=== PATIENT | male | born 1940 | race Caucasian/White ===

== ENCOUNTER → 2016-11-22 | Outpatient (CLI) | payer BC ==
[~2016-11-22] MED LIST: ALPR-411 PO; CMDUNK; FINA5TAB PO; PRLSR20 PO; PRVC10 PO; TERA5CAP PO
[2016-11-22 14:55] LABS: BASO % 0.5 %; BASO ABS # 0.05 K/uL (0-0.2); COMPLETE YES; EOS % 2.3 %; HEMATOCRIT 35.5 % (42-52); IG% 0.2 %; LYMPH % 15.5 %; LYMPH ABS # 1.42 K/uL (1.2-3.4); MEAN CELL VOLUME 91.7 fL (80-100); MEAN CORPUSCULAR HEMOGLOBIN 31.3 pg (25-34); MEAN CORPUSCULAR HGB CONC 34.1 g/dl (32-36); MEAN PLATELET VOLUME 10.5 fL (7.4-10.4); MONO % 8.4 %; NEUT % 73.1 %; PLATELET COUNT 238 K/uL (130-400); RED BLOOD COUNT 3.87 M/uL (4.7-6.1); WHITE BLOOD COUNT 9.19 K/uL (4.8-10.8)
== END | disposition home or self-care (01) ==
LOC: C.LAB 13:31
DX: D64.9 Anemia, unspecified (principal)

== ENCOUNTER → 2016-12-29 | Outpatient (CLI) | payer BC ==
[2016-12-29 09:39] LABS: BASO % 0.8 %; BASO ABS # 0.06 K/uL (0-0.2); COMPLETE YES; EOS % 5.5 %; HEMATOCRIT 33.6 % (42-52); IG% 0.3 %; LYMPH % 18.3 %; LYMPH ABS # 1.46 K/uL (1.2-3.4); MEAN CELL VOLUME 90.6 fL (80-100); MEAN CORPUSCULAR HEMOGLOBIN 31.3 pg (25-34); MEAN CORPUSCULAR HGB CONC 34.5 g/dl (32-36); MONO % 5.4 %; NEUT % 69.7 %; PLATELET COUNT 255 K/uL (130-400); RED BLOOD COUNT 3.71 M/uL (4.7-6.1)
[2016-12-29 10:20] LABS: FERRITIN 172.9 ng/ml (8.0-388.0)
== END | disposition home or self-care (01) ==
LOC: C.LAB 09:05
DX: D64.9 Anemia, unspecified (principal)

== ENCOUNTER → 2017-01-25 | Outpatient (CLI) | payer BC ==
[2017-01-25 15:54] LABS: BASO % 0.5 %; BASO ABS # 0.05 K/uL (0-0.2); COMPLETE YES; EOS % 2.4 %; HEMATOCRIT 34.8 % (42-52); IG% 0.3 %; LYMPH % 14.7 %; LYMPH ABS # 1.51 K/uL (1.2-3.4); MEAN CELL VOLUME 90.6 fL (80-100); MEAN CORPUSCULAR HEMOGLOBIN 31.5 pg (25-34); MEAN CORPUSCULAR HGB CONC 34.8 g/dl (32-36); MEAN PLATELET VOLUME 10.4 fL (7.4-10.4); MONO % 6.9 %; NEUT % 75.2 %; PLATELET COUNT 249 K/uL (130-400); RED BLOOD COUNT 3.84 M/uL (4.7-6.1)
[2017-01-25 16:05] LABS: FERRITIN 287.3 ng/ml (8.0-388.0)
== END | disposition home or self-care (01) ==
LOC: C.LAB 14:29
DX: D64.9 Anemia, unspecified (principal)

== ENCOUNTER → 2017-02-26 | Outpatient (CLI) | payer BC ==
[2017-02-26 09:31] LABS: BASO % 0.5 %; BASO ABS # 0.05 K/uL (0-0.2); COMPLETE YES; EOS % 3.8 %; HEMATOCRIT 34.4 % (42-52); IG% 0.2 %; LYMPH % 13.9 %; MEAN CELL VOLUME 92.7 fL (80-100); MEAN CORPUSCULAR HEMOGLOBIN 31.8 pg (25-34); MEAN CORPUSCULAR HGB CONC 34.3 g/dl (32-36); MEAN PLATELET VOLUME 10.4 fL (7.4-10.4); MONO % 5.6 %; PLATELET COUNT 249 K/uL (130-400); RED BLOOD COUNT 3.71 M/uL (4.7-6.1); WHITE BLOOD COUNT 10.07 K/uL (4.8-10.8)
[2017-02-26 09:50] LABS: FERRITIN 325.6 ng/ml (8.0-388.0)
== END ==
LOC: C.LAB 08:24
DX: D50.9 Iron deficiency anemia, unspecified (principal)

== ENCOUNTER 2017-04-23 19:06 | Emergency (ER) | payer BC ==
[~2017-04-23] VITALS: Ht 177.8 cm; Wt 80.9 kg
[~2017-04-23 19:06] MED LIST changes: -PRVC10 PO
[2017-04-23 19:10] VITALS: Ht 177.8 cm; Wt 80.9 kg
--- NOTE | 2017-04-23 19:43 | DIAGNOSTIC IMAGING REPORT ---
RIGHT ANKLE MIN 3 VIEWS ROUTINE CLINICAL HISTORY: Right ankle and foot pain. COMPARISON: None FINDINGS: Alignment of the right ankle is anatomic. There is no acute fracture. A 6 mm well-corticated ossicle along the medial malleolus suggests old injury. Talar dome is intact. There is mild arthritis. IMPRESSION: No acute fracture or dislocation of the right ankle. Electronically signed by: Zia Elkins M.D. 04/23/2017 7:42 PM Dictated Date/Time: 04/23/2017 7:40 PM
[2017-04-23] MEDS ORDERED: ALPR-411 PO (19:44)
[2017-04-23] MEDS ORDERED: PRVC10 PO (19:44)
--- NOTE | 2017-04-23 19:45 | DIAGNOSTIC IMAGING REPORT ---
RIGHT FOOT MIN 3 VIEWS ROUTINE CLINICAL HISTORY: Lateral right ankle and foot pain following injury. COMPARISON: None FINDINGS: The tarsometatarsal joints are intact. There is no acute fracture within the right foot. There is moderate arthritis within multiple articulations of the right foot, most pronounced within the midfoot. There is mild plantar calcaneal spurring. IMPRESSION: No acute fracture or dislocation of the right foot. 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 Electronically signed by: Zia Elkins M.D. 04/23/2017 7:43 PM Dictated Date/Time: 04/23/2017 7:42 PM
[2017-04-23] MEDS ORDERED: NORCO 5/325MG HOME PACK PO ONE (20:15)
[2017-04-23 20:26] VITALS: BP 135/69; PULSE 78; TEMP 36.7; O2SAT 95
--- NOTE | 2017-04-24 00:04 | EMERGENCY ROOM VISIT NOTE ---
History First contact with patient: 19:14 Chief Complaint: FOOT PAIN Stated Complaint: RIGHT FOOT DISCOMFORT History of Present Illness The patient is a 77 year old male who presents to the Emergency Room with complaints of right foot and ankle tenderness for the past one day. The patient states his symptoms began earlier when he was stepping out of his truck , and felt a pop sensation in the foot. He has had some slowly worsening pain in the foot and ankle. He does not recall previous injury or fracture. He has been able to ambulate, but this does cause him some discomfort. He has not taken anything [id number] for his pain which he rates a 5/10. The patient does not have other complaints. Review of Systems More than 10 systems were reviewed and otherwise negative with the exception of history of present illness. Past Medical/Surgical History No pertinent chronic medical disease Family History No pertinent family history Social History Smoking Status: Never Smoker Housing Status: lives with family Current/Historical Medications Scheduled Alprazolam (Xanax), 0.5 MG PO QAM Alprazolam (Xanax), 1 MG PO HS Finasteride (Proscar), 5 MG PO HS Omeprazole (Prilosec), 20 MG PO QAM Pravastatin Sod (Pravastatin Sodium), 10 MG PO HS Terazosin (Hytrin), 5 MG PO HS Allergies Coded Allergies: Sulfa Antibiotics (Verified Allergy, Severe, RASH, HIVES, SWOLLEN MOUTH, THROAT SWELLING, 11/15/16) Penicillins (Verified Allergy, Unknown, RASH, HIVES, 11/15/16) Physical Exam Vital Signs Date Time Temp Pulse Resp B/P (MAP) Pulse Ox O2 Delivery O2 Flow Rate FiO2 04/23/17 20:26 36.7 78 18 135/69 95 04/23/17 19:10 36.7 78 18 135/69 95 Room Air Pain Rating (0-10): 0 Physical Exam VITALS: Vitals are noted on the nurse's note and reviewed by myself. Vital signs stable. GENERAL: Well-developed, well-nourished, white male, who is in no acute distress and resting comfortably. Patient is cooperative with the examination. HEAD: Normocephalic atraumatic. HEART: Regular rate and rhythm without murmurs gallops or rubs. LUNGS: Clear to auscultation bilaterally without wheezes, rales or rhonchi. No retractions or accessory muscle use. MUSCULOSKELETAL: Mild tenderness appreciated over the lateral aspect of the right ankle and right foot. There is no gross deformity, laceration, or abrasion. Neurovascular status is intact distally. No medial or plantar aspect tenderness. NEURO: Patient was alert and oriented to person place and time. CN II through XII grossly intact. Medical Decision & Procedures ER Provider Diagnostic Interpretation: RIGHT ANKLE MIN 3 VIEWS ROUTINE CLINICAL HISTORY: Right ankle and foot pain. COMPARISON: None FINDINGS: Alignment of the right ankle is anatomic. There is no acute fracture. A 6 mm well-corticated ossicle along the medial malleolus suggests old injury. Talar dome is intact. There is mild arthritis. IMPRESSION: No acute fracture or dislocation of the right ankle RIGHT FOOT MIN 3 VIEWS ROUTINE CLINICAL HISTORY: Lateral right ankle and foot pain following injury. COMPARISON: None FINDINGS: The tarsometatarsal joints are intact. There is no acute fracture within the right foot. There is moderate arthritis within multiple articulations of the right foot, most pronounced within the midfoot. There is mild plantar calcaneal spurring. IMPRESSION: No acute fracture or dislocation of the right foot. 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 Medications Administered Medications (Trade) Dose Ordered Sig/Miguel Route Start Time Stop Time Status Last Admin Dose Admin Acetaminophen/ Hydrocodone Bitart ([place] 5/325mg Home Pack) 1 homepack UD ONCE PO 04/23/17 20:15 04/23/17 20:16 DC 04/23/17 20:29 1 HOMEPACK ED Course Physical exam and history were performed. Nursing notes and EMR were reviewed. Patient appears to have right foot and ankle pain after stepping out of his truck earlier today. X-rays were obtained and do not show evidence of acute fracture or dislocation. The patient was offered crutches or a walker, but he states that he has these at home, and is comfortable using them. He was given a postop shoe and a home pack of Vicodin. He will need to follow with orthopedics if any ongoing or persisting symptoms. He was otherwise invited back to the ER anytime and was pleased with plan of care. The chart was completed utilizing [employer] Voice Recognition Software. Grammatical errors, random word insertions, pronoun errors, and incomplete sentences are an occasional consequence of this system due to software limitations, ambient noise, and hardware issues. Any formal questions or concerns about the content, text, or information contained within the body of this dictation should be directly addressed to the provider for clarification. . Medical Decision Differential diagnosis includes, but is not limited to: Sprain, strain, fracture , dislocation, subluxation, contusion, and others Impression Primary Impression: Pain in joint involving right ankle and foot Departure Information Dispostion Home / Self-Care Condition GOOD Forms HOME CARE DOCUMENTATION FORM, IMPORTANT VISIT INFORMATION Patient Instructions [facility] Additional Instructions You were seen and evaluated today on an emergency basis only. This is not a substitute for, or an effort to provide, complete comprehensive medical care. It is not possible to recognize and treat all injuries or illnesses in a single emergency department visit. For this reason it is recommended that you followup with your primary care physician or orthopedist next week if symptoms persist. Wear your postop shoe and use your walker from home to prevent falling [place] (hydrocodone/acetaminophen) 5/325 mg (homepack) every 6 hours as needed for worsening breakthrough pain. Do not drink or drive on [place]. This medication will likely make you tired. Do not take [place] and Tylenol at the same time as both contain acetaminophen. [place] may cause constipation. You may wish to take an [id number] stool softener like Colace if this occurs. You are welcome to return to the emergency department anytime with new, worsening, or concerning symptoms.
== END 2017-04-23 20:28 | disposition home or self-care (01) ==
LOC: C.EDB 19:07 → C.EDD 20:28
DX: M25.571 Pain in right ankle and joints of right foot (principal)

== ENCOUNTER → 2017-06-07 | Outpatient (CLI) | payer BC ==
[~2017-06-07] MED LIST changes: -CMDUNK; +PRVC10 PO
[2017-06-07 16:13] LABS: BASO % 0.3 %; BASO ABS # 0.04 K/uL (0-0.2); COMPLETE YES; IG% 0.3 %; LYMPH % 7.8 %; LYMPH ABS # 1.22 K/uL (1.2-3.4); MEAN CELL VOLUME 91.1 fL (80-100); MEAN CORPUSCULAR HEMOGLOBIN 30.9 pg (25-34); MEAN CORPUSCULAR HGB CONC 33.9 g/dl (32-36); MEAN PLATELET VOLUME 9.8 fL (7.4-10.4); MONO % 5.9 %; NEUT % 84.7 %; PLATELET COUNT 301 K/uL (130-400); RED BLOOD COUNT 3.95 M/uL (4.7-6.1)
[2017-06-07 16:48] LABS: ALT/SGPT 21 U/L (12-78); AMYLASE 54 U/L (25-115); AST/SGOT 14 U/L (15-37); BLOOD UREA NITROGEN 19 mg/dl (7-18); BUN/CREATININE RATIO 18.9 (10-20); CALCIUM 9.2 mg/dl (8.5-10.1); CARBON DIOXIDE 27 mmol/L (21-32); CHLORIDE 109 mmol/L (98-107); GLUCOSE 95 mg/dl (70-99); SODIUM 142 mmol/L (136-145)
[2017-06-07 16:51] LABS: ALB/GLOB RATIO 1.1 (0.9-2); ALKALINE PHOSPHATASE 94 U/L (45-117)
[2017-06-07 16:52] LABS: URINE APPEARANCE CLEAR (CLEAR); URINE BILIRUBIN NEG (NEG); URINE COLOR YELLOW; URINE NITRITE NEG (NEG); URINE SPECIFIC GRAVITY 1.016 (1.000-1.030); UROBILINOGEN NEG (NEG)
[2017-06-07 17:03] LABS: MANUAL MICROSCOPIC REQUIRED? NO; REVIEW REQ? NO
--- NOTE | 2017-06-07 17:39 | DIAGNOSTIC IMAGING REPORT ---
KUB CLINICAL HISTORY: Generalized abdominal pain. Constipation. FINDINGS: 2 AP supine abdominal radiographs are correlated with abdominal CT dated 05/29/2006. There is a nonobstructed abdominal bowel gas pattern. Mild colonic fecal retention is noted. No evidence of intraperitoneal free air is seen on these supine images. Coarse calcifications are noted in the prostate gland. There is no radiographic evidence of nephrolithiasis. The skeletal structures are osteopenic. Advanced lumbosacral spondylosis is observed. The bony structures appear intact. IMPRESSION: Nonobstructed abdominal bowel gas pattern noting mild colonic fecal retention. Electronically signed by: Niraj Almeida M.D. 06/07/2017 5:37 PM Dictated Date/Time: 06/07/2017 5:36 PM
--- NOTE | 2017-06-11 14:08 | CODING QUERY MEDICAL NECESSITY ---
SUPPORTING DIAGNOSIS NEEDED Dr. Junior, A supporting diagnosis is required for the test/procedure performed on this patient in order for us to be reimbursed by the patient's insurance. Please provide a supporting diagnosis for the following test/procedure listed below next to the test name along with your signature. *If there is no additional diagnosis for this patient that would support the following test/procedure please document that below next to the test/procedure. Test(s)/Procedure(s) that require a supporting diagnosis: * ([id number]) B12 VITAMIN LEVEL DIAGNOSIS: DATE OF SERVICE: 06/07/17 Provider Signature: Date: Thank you Adonay Bob [facility] Information Management Once completed, please kindly fax back to [phone] For questions please call [phone]
== END ==
LOC: C.RAD 15:43
DX: R10.9 Unspecified abdominal pain (principal); K59.00 Constipation, unspecified

== ENCOUNTER → 2017-06-08 | Outpatient (CLI) | payer BC ==
[~2017-06-08] MED LIST changes: +OPTIRAY 320 IV PRN
--- NOTE | 2017-06-08 15:24 | DIAGNOSTIC IMAGING REPORT ---
ABD/PELVIS IV AND ORAL CONT HISTORY: 77 years-old Male acute diffuse abdominal pain with concern for acute diverticulitis. COMPARISON: CT 05/29/2006 TECHNIQUE: Multiple axial CT images of the abdomen and pelvis were obtained following the intravenous administration of 95 mL Optiray 320. Oral contrast was also administered. A dose lowering technique was used consistent with the principals of THANH. FINDINGS: Subsegmental tree-in-bud nodular groundglass opacities are present in the lateral segment right middle lobe suggesting infectious bronchiolitis with similar-appearing finding seen involving the medial basal segment of the right lower lobe. There is no pneumoperitoneum. Heart is enlarged with calcification seen within the region of the mitral annulus. The gallbladder, liver, spleen, imaging glands appear normal. There is moderate pancreatic atrophy. Subcentimeter low attenuating lesions of the right kidney suggest cysts, too small to characterize. No hydronephrosis. The prostate is enlarged causing mass effect upon the floor the urinary bladder. Central coarse prostatic calcifications are noted. There is moderate urinary bladder wall thickening suggesting sequela of chronic bladder outlet obstruction with small left lateral diverticulum, 1.3 cm. There is trace free pelvic fluid noted. Moderate atherosclerotic plaquing involves the abdominal aorta and branch vessels. Plaquing at the origin of the celiac trunk and SMA causes at least mild stenosis. There is a small diverticulum of the second portion duodenum. There is no bowel obstruction. Extensive sigmoid colonic diverticulosis is noted without significant inflammatory changes seen to suggest acute diverticulitis. There is no abscess. The appendix is normal. Soft tissues are within normal limits. Multilevel severe degenerative changes involve the lumbar spine. IMPRESSION: 1. Extensive sigmoid colonic diverticulosis without significant inflammatory changes seen to suggest acute diverticulitis at this time. There is however a mild amount of free pelvic fluid present which is nonspecific. Close follow-up is recommended. 2. No bowel obstruction. 3. Prostamegaly with wall thickening of the urinary bladder suggesting sequela of chronic bladder obstruction. Small bladder diverticulum involves the left posterior lateral bladder wall 4. Normal appendix. The above report was generated using voice recognition software. It may contain grammatical, syntax or spelling errors. Electronically signed by: Niraj Rico M.D. 06/08/2017 3:22 PM Dictated Date/Time: 06/08/2017 3:12 PM
== END | disposition home or self-care (01) ==
LOC: C.CTS 12:31
DX: K57.30 Diverticulosis of large intestine without perforation or abscess without bleeding (principal); N32.3 Diverticulum of bladder; N40.1 Benign prostatic hyperplasia with lower urinary tract symptoms; R10.9 Unspecified abdominal pain

== ENCOUNTER → 2017-06-21 | Outpatient (CLI) | payer BC ==
[~2017-06-21] MED LIST changes: -OPTIRAY 320 IV PRN
[2017-06-21 13:36] LABS: BASO % 0.7 %; BASO ABS # 0.06 K/uL (0-0.2); COMPLETE YES; EOS % 2.7 %; HEMATOCRIT 34.4 % (42-52); IG% 0.2 %; LYMPH % 18.5 %; LYMPH ABS # 1.58 K/uL (1.2-3.4); MEAN CORPUSCULAR HEMOGLOBIN 30.5 pg (25-34); MEAN CORPUSCULAR HGB CONC 33.1 g/dl (32-36); MEAN PLATELET VOLUME 10.7 fL (7.4-10.4); MONO % 5.9 %; PLATELET COUNT 284 K/uL (130-400); RED BLOOD COUNT 3.74 M/uL (4.7-6.1); WHITE BLOOD COUNT 8.53 K/uL (4.8-10.8)
[2017-06-21 13:51] LABS: PROSTATE SPECIFIC ANTIGEN 0.793 ng/ml (0.000-4.000)
== END | disposition home or self-care (01) ==
LOC: C.LAB1850 11:46
DX: D64.9 Anemia, unspecified (principal); N40.2 Nodular prostate without lower urinary tract symptoms; E61.1 Iron deficiency

== ENCOUNTER → 2018-01-10 | Outpatient (CLI) | payer BC ==
--- NOTE | 2018-01-10 13:29 | DIAGNOSTIC IMAGING REPORT ---
KUB CLINICAL HISTORY: ABDOMINAL PAIN, CONSTIPATION pain COMPARISON STUDY: 06/07/2017 FINDINGS: The soft tissues, psoas shadows, renal outlines and intestinal gas pattern appear normal. There is no evidence for bowel obstruction. No abnormal abdominal calcifications are seen. IMPRESSION: Normal study. The above report was generated using voice recognition software. It may contain grammatical, syntax or spelling errors. Electronically signed by: Sheldon Bright M.D. 01/10/2018 1:27 PM Dictated Date/Time: 01/10/2018 1:26 PM
== END | disposition home or self-care (01) ==
LOC: C.RAD 13:06
DX: K59.00 Constipation, unspecified (principal)

== ENCOUNTER → 2018-06-17 | Outpatient (CLI) | payer BC | LOC: C.LABSPEC 11:28 | PROVIDERS: ATTEND Podiatrist Foot & Ankle Surgery | DX: Z48.89 Encounter for other specified surgical aftercare (principal) ==

== ENCOUNTER → 2018-07-02 | Outpatient (CLI) | payer BC | END | disposition home or self-care (01) | LOC: C.LAB 11:55 | PROVIDERS: ATTEND Podiatrist | DX: M10.071 Idiopathic gout, right ankle and foot (principal); M10.072 Idiopathic gout, left ankle and foot ==

== ENCOUNTER 2019-07-30 10:26 | Inpatient (IN) ==
[2019-07-30] MEDS ORDERED: GI COCKTAIL ED USE PO ONE (11:06)
[2019-07-30 11:19] LABS: Basophils # (auto) 0.06 K/uL (0-0.2); Basophils % (auto) 0.6 %; Eosinophils # (auto) 0.19 K/uL (0-0.5); Eosinophils % (auto) 1.8 %; Hematocrit (blood only) 32.9 % (42-52); Hemoglobin 10.8 g/dL (14.0-18.0); Immature Granulocytes # (auto) 0.04 K/uL (0.00-0.02); Immature Granulocytes % (auto) 0.4 %; Lymphocytes # (auto) 2.83 K/uL (1.2-3.4); Mean Corpuscular Hemoglobin 30.4 pg (25-34); Mean Corpuscular Hgb Conc 32.8 g/dL (32-36); Mean Corpuscular Volume 92.7 fL (80-100); Mean Platelet Volume 10.9 fL (7.4-10.4); Monocytes # (auto) 1.04 K/uL (0.11-0.59); Monocytes % (auto) 9.9 %; Neutrophils # (auto) 6.34 K/uL (1.4-6.5); Neutrophils % (auto) 60.3 %; Platelet Count 315 K/uL (130-400); RDW Coefficient of Variation 15.4 % (11.5-14.5); RDW Standard Deviation 52.5 fL (36.4-46.3); Red Blood Count 3.55 M/uL (4.7-6.1)
--- NOTE | 2019-07-30 11:22 | XRay Report ---
XR chest 1V portable CLINICAL HISTORY: Atypical chest pain COMPARISON STUDY: No previous studies for comparison. FINDINGS: The heart is borderline enlarged. There is no overt failure. There is no focal pulmonary co nsolidation. There is minor blunting of the lateral costophrenic angles.[ IMPRESSION: Minor blunting of the lateral costophrenic angles. Trace effusions cannot be excluded. No evidence of focal pulmonary consolidation Electronically signed by: Isrrael Perez M.D. 07/30/2019 11:21 AM
[2019-07-30 11:29] LABS: Alanine Aminotransferase 19 U/L (12-78); Albumin Level 3.4 gm/dl (3.4-5.0); Aspartate Aminotransferase 9 U/L (15-37); BUN Creatinine Ratio 18.7 (10-20); Blood Urea Nitrogen 21 mg/dl (7-18); Calcium 9.1 mg/dl (8.5-10.1); Carbon Dioxide 26 mmol/L (21-32); Chloride 108 mmol/L (98-107); Creatinine Clr Calc Pharmacy 54.9 ml/min; Est GFR (African American) 69.5; Glucose 161 mg/dl (70-99); Lipase 64 U/L (73-393); Potassium 3.6 mmol/L (3.5-5.1); Sodium 142 mmol/L (136-145)
[2019-07-30 11:34] LABS: Alkaline Phosphatase 78 U/L (45-117); Bilirubin,Total 0.5 mg/dl (0.2-1); Globulin 3.4 gm/dl (2.5-4.0); Total Protein 6.8 gm/dl (6.4-8.2); Troponin I < 0.015 ng/ml (0-0.045)
--- NOTE | 2019-07-30 12:53 | Emergency Department Note ---
Entered by Coty Garrett acting as a scribe for Bruce Stacy DO History of Present Illness General Chief complaint: Chest Pain Time Seen by Provider: 07/30/19 10:52 Source: patient History of Present Illness Onset (ago): day(s) (last night) Location: chest Pain Consistency: + other (worsening ) Quality: + other (chest tightness ) Exacerbated By: + other (swallowing food ) Associated symptoms: + shortness of breath (slight) and + other (+pain in jaw and neck; -arm pain; ); no diaphoresis and no nausea/vomiting The patient is an 79 year old male who presents to the Emergency Room with complaints of worsening chest tightness that began last night. The patient reports he first noticed symptoms while eating dinner last night. The patient notes the tightness he felt was worsened with swallowing. The patient notes he was restless throughout the night, but the patient notes he woke up feeling good. However, the patient states the chest tightness resumed when he started eating breakfast. Following this, the patient notes the chest tightness became more severe around 730-800 this morning. The patient also notes he could feel pain in his jaw and neck at this time, but he notes nothing to his arms. The patient states he took 4 baby aspirins before getting on the ambulance. He also notes he received 1 NG en route via EMS, which the patient reports helped a little. The patient notes slight shortness of breath, but he denies sweats, nausea, and vomiting. The patient denies the pain worsening with exertion. The patient also denies past heart issues. Home Medications Home Medications Medication Instructions Recorded Confirmed Type alprazolam 0.5 mg tablet 0.5 mg PO QAM 07/10/19 07/30/19 History alprazolam 1 mg tablet 1 mg PO HS tab 07/10/19 07/30/19 History finasteride 5 mg tablet 5 mg PO HS tab 07/10/19 07/30/19 History omeprazole 20 mg capsule,delayed 20 mg PO QAM 07/10/19 07/30/19 History release terazosin 5 mg capsule 5 mg PO HS cap 07/10/19 07/30/19 History allopurinol 100 mg PO QAM 07/30/19 07/30/19 History aspirin 81 mg PO HS 07/30/19 07/30/19 History diclofenac sodium 75 mg PO BID 07/30/19 07/30/19 History multivitamin 1 tab PO QAM 07/30/19 07/30/19 History ranitidine HCl 300 mg PO HS 07/30/19 07/30/19 History rosuvastatin 5 mg PO HS 07/30/19 07/30/19 History Allergies Allergy/AdvReac Type Severity Reaction Status Date / Time Sulfa (Sulfonamide Allergy Severe RASH, Verified 07/30/19 11:22 Antibiotics) HIVES, SWOLLEN MOUTH, THROAT SWELLING Penicillins Allergy Unknown RASH, HIVES Verified 07/30/19 11:22 Past Med/Surg History Medical History Arthritis (Chronic) Benign enlargement of prostate (Chronic) GERD (gastroesophageal reflux disease) (Chronic) Gout (Chronic) Hyperlipidemia (Chronic) Surgical History H/O foot surgery (Resolved) History of bilateral knee replacement (Resolved) Social History Communication Ability: Effective Visual Impairment: No Limitations Hearing Ability: Normal Beliefs That Will Affect Care: None marital status: Current Living Situation: Spouse current occupational status: retired Feels Safe at Home: Yes Smoking Status: Never smoker Hx Alcohol Use: No Review of Systems See HPI for pertinent positives & negatives. and A total of 10 systems reviewed and were otherwise negative Physical Exam Vital Signs Vital Signs - 24 hr 07/30/19 10:34 07/30/19 11:58 07/30/19 13:00 Temperature 36.7 C Temperature Source Oral Sepsis Recent Fever Within 48 Hours No Sepsis Action Taken by Nursing No Action Required Pulse Rate 76 Pulse Rate [Apical] 60 70 Pulse Rhythm [Apical] Regular Regular Pulse Strength [Apical] Normal Respiratory Rate 16 17 18 Respiratory Effort / Characteristics Non-Labored Spontaneous Non-Labored Spontaneous Respiratory Depth Normal Normal Respiratory Pattern Regular Regular Blood Pressure 145/80 H Blood Pressure [Right Arm] 165/81 H 178/87 H Blood Pressure Mean 101 Blood Pressure Mean [Right Arm] 109 117 Pulse Oximetry 96 98 98 Oxygen Delivery Method Room Air Room Air CONSTITUTIONAL/VITAL SIGNS: Reviewed / noted above. GENERAL: Non-toxic in appearance. INTEGUMENTARY: Warm, dry, and [place]. HEAD: Normocephalic. EYES: without scleral icterus or trauma. ENT/OROPHARYNX: clear and moist. LYMPHADENOPATHY/NECK: Is supple without lymphadenopathy or meningismus. RESPIRATORY: Lungs clear and equal. CARDIOVASCULAR: Regular rate and rhythm. GI/ABDOMEN: Soft and nontender. No organomegaly or pulsatile mass. No rebound or guarding. Normal bowel sounds. EXTREMITIES: Warm and well perfused. BACK: No CVA tenderness. NEUROLOGICAL: Intact without focal deficits. PSYCHIATRIC: normal affect. MUSCULOSKELETAL: Normally developed with good muscle tone. Course 1101: Past medical records reviewed. The patient was evaluated in room A10. A complete history and physical exam was performed. 1244: I discussed the patient's case with the patient. 1327: I reviewed the patient's case with Dr. Alberto. Dr. Percy Mahan will evaluate the patient for further management. Consultations Consultation #1: I reviewed the patient's case with Dr. Alberto. Dr. Alberto will evaluate the patient for further management. Time: 13:27 Administered Medications Discontinued Medications Al Hydrox/Mg Hydrox/Simethicone () 1 dose PO ONE ONE Stop: 07/30/19 11:07 Last Admin: 07/30/19 11:11 Dose: 1 dose Documented by: [id number] Medical Decision Making Differential Diagnosis Differential diagnosis: Etiologies such as cardiac ischemia, aortic dissection, pulmonary embolism, pneumonia, pneumothorax, musculoskeletal, infections, pericarditis, myocarditis, esophageal rupture, gastrointestinal, as well as others were entertained. Medical Records Attestation: I reviewed the patient's medical records. Home Medications Current Medication List: was personally reviewed by me Laboratory Data Attestation: I reviewed the patient's lab results. Result diagrams: 07/30/19 10:12 07/30/19 10:12 Lab Results 07/30/19 07/30/19 Range/Units 10:12 10:12 WBC 10.50 (4.8-10.8) K/uL RBC 3.55 L (4.7-6.1) M/uL Hgb 10.8 L (14.0-18.0) g/dL Hct 32.9 L (42-52) % MCV 92.7 (80-100) fL MCH 30.4 (25-34) pg MCHC 32.8 (32-36) g/dL RDW Std Deviation 52.5 H (36.4-46.3) fL RDW Coeff of [place] 15.4 H (11.5-14.5) % Plt Count 315 (130-400) K/uL MPV 10.9 H (7.4-10.4) fL Immature Gran % (Auto) 0.4 % Neut % (Auto) 60.3 % Lymph % (Auto) 27.0 % [place] % (Auto) 9.9 % Eos % (Auto) 1.8 % Baso % (Auto) 0.6 % Immature Gran # (Auto) 0.04 H (0.00-0.02) K/uL Neut # (Auto) 6.34 (1.4-6.5) K/uL Lymph # (Auto) 2.83 (1.2-3.4) K/uL [place] # (Auto) 1.04 H (0.11-0.59) K/uL Eos # (Auto) 0.19 (0-0.5) K/uL Baso # (Auto) 0.06 (0-0.2) K/uL Sodium 142 (136-145) mmol/L Potassium 3.6 (3.5-5.1) mmol/L Chloride 108 H (98-107) mmol/L Carbon Dioxide 26 (21-32) mmol/L Anion Gap 8.0 (3-11) BUN 21 H (7-18) mg/dl Creatinine 1.14 (0.6-1.4) mg/dl Est Cr Clr Drug Dosing 54.9 ml/min Est GFR ( Amer) 69.5 Est GFR (Non-Af Amer) 60.0 BUN/Creatinine Ratio 18.7 (10-20) Glucose 161 H (70-99) mg/dl Calcium 9.1 (8.5-10.1) mg/dl Total Bilirubin 0.5 (0.2-1) mg/dl AST 9 L (15-37) U/L ALT 19 (12-78) U/L Alkaline Phosphatase 78 (45-117) U/L Troponin I < 0.015 (0-0.045) ng/ml Total Protein 6.8 (6.4-8.2) gm/dl Albumin 3.4 (3.4-5.0) gm/dl Globulin 3.4 (2.5-4.0) gm/dl Albumin/Globulin Ratio 1.0 (0.9-2) Lipase 64 L (73-393) U/L Imaging Data Radiologist's Impression: Radiology results as stated below per my review and the radiologist's interpretation: XR chest 1V portable CLINICAL HISTORY: Atypical chest pain COMPARISON STUDY: No previous studies for comparison. FINDINGS: The heart is borderline enlarged. There is no overt failure. There is no focal pulmonary consolidation. There is minor blunting of the lateral costophrenic angles.[ IMPRESSION: Minor blunting of the lateral costophrenic angles. Trace effusions cannot be excluded. No evidence of focal pulmonary consolidation Electronically signed by: Isrrael Perez M.D. 07/30/2019 11:21 AM ECG Data Attestation: I personally reviewed and interpreted this ECG as follows: Indication: chest pain Rate (beats per minute): 74 Rhythm: sinus rhythm Findings: + PAC, + PVC, + RBBB and + T-wave inversion (in anterior and lateral leads) Comparison ECG Date: from (04/16/18) Change: the following changes noted (PVC and PAC are more prominent/frequent ) Blood Pressure Blood Pressure Findings: Elevated blood pressure Blood Pressure Disposition: further management by hospitalist ARGENIS Dupree This is an 79-year-old male who presents to the ED with a chief complaint of chest discomfort. The patient states that his symptoms started last night with eating dinner. He states that he had some minor chest pain that seem to be worse if he swallowed. He states that that resolved and this morning during breakfast he had the pain returned. It seemed to be a little worse with swallowing as well. He states that 8 AM he began to have tightness in his chest that radiated into his jaw and neck. He had a little associated shortness of breath. He now currently feels like it is a little short of breath but is mostly resolved after EMS gave him sublingual nitroglycerin. The patient took aspirin 324 mg p.o. prior to EMS arrival. He denies having any diaphoresis, nausea or vomiting associated with his symptoms. His vital signs are stable. His physical exam was unremarkable. A chest x-ray was negative for acute disease. CBC is unremarkable. Complete metabolic panel was normal, troponin was negative. Twelve-lead EKG reveals a sinus rhythm with multiple PVCs and PACs. I spoke with the patient about the results. Based on the patient's symptoms and risk factors, the patient will be seen by the hospitalist for further inpatient evaluation and care. Impression & Plan Chest pain, precordial Discharge Plan Visit Data Chief Complaint: Chest Pain ED Provider: Bruce Stacy Discharge Problem: Chest pain, precordial Patient Disposition: Being Evaluated by Hospitalist Forms Stand Alone Forms: My [facility] Prescriptions Prescriptions: No Action alprazolam [Xanax] 1 mg tablet 1 mg PO HS RF: 0 alprazolam [Xanax] 0.5 mg tablet 0.5 mg PO QAM RF: 0 finasteride [Proscar] 5 mg tablet 5 mg PO HS RF: 0 omeprazole 20 mg capsule,delayed release(DR/EC) 20 mg PO QAM RF: 0 terazosin 5 mg capsule 5 mg PO HS RF: 0 multivitamin Tablet 1 tab PO QAM RF: 0 ranitidine HCl 300 mg tablet 300 mg PO HS RF: 0 allopurinol 100 mg tablet 100 mg PO QAM RF: 0 aspirin 81 mg Tablet,Delayed Release (Dr/Ec) 81 mg PO HS RF: 0 diclofenac sodium 75 mg tablet,delayed release (DR/EC) 75 mg PO BID RF: 0 rosuvastatin 5 mg tablet 5 mg PO HS RF: 0 Referrals Referrals: Ryan Junior Jr, DO [Primary Care Provider] - The scribe's documentation has been prepared under my direction and personally reviewed by me in its entirety. I confirm that the note above accurately reflects all work, treatment, procedures, and medical decision making performed by me.
[2019-07-30] MEDS ORDERED: MAGNESIUM HYDROXIDE SUSP 30 ML UDC PO PRN (14:32)
[2019-07-30] MEDS ORDERED: ALUMINUM/MAGNESIUM SUSP 30 ML UDC PO PRN (14:32)
[2019-07-30] MEDS ORDERED: ZOLPIDEM TARTRATE 5 MG TAB PO PRN (14:32)
[2019-07-30] MEDS ORDERED: POLYETHYLENE (MIRALAX) 17 GM PACK PO PRN (14:32)
[2019-07-30] MEDS ORDERED: NITROGLYCERIN SL 0.4 MG/TAB TAB SL PRN (14:32)
[2019-07-30] MEDS ORDERED: MoRPHine SULFATE 2 MG/ML CARP IV PRN (14:32)
[2019-07-30] MEDS ORDERED: ACETAMINOPHEN 325 MG TAB PO PRN (14:32)
[2019-07-30] MEDS ORDERED: VANCOMYCIN CONSULT ACTIVE PRN (14:32)
--- NOTE | 2019-07-30 15:12 | Pharmacy Report ---
Pharmacy Abx Initial Consult - Date of Service July 30, 2019 - Pharmacy Dosing Scope Date of Consult: 07/30/19 Consultation requested by: Dr. Angela Mahan Pharmacy is consulted to initiate Vancomycin and Cefepime IV dosing therapy, order appropriate labs and adjust drug dose/frequency. - Subjective The patient is a 79 year old M admitted on 07/30/19 with chest pain. Patient just started PO Clindamycin on 07/24/19 for osteomyelitis of right lateral foot, non- healing surgical wound. Patient followed by Dr Chin at wound clinic. - Objective Height: 5 ft 9 in Weight: 85 kg Vital Signs (Past 12hrs): Vital Signs Temp Pulse Pulse Resp BP BP Pulse Ox 07/30/19 13:00 70 18 178/87 H 98 07/30/19 11:58 60 17 165/81 H 98 07/30/19 10:34 36.7 C 76 16 145/80 H 96 Lab Results (24hrs): Laboratory Tests (24 Hours) 07/30/19 07/30/19 10:12 10:12 WBC 10.50 Neut # (Auto) 6.34 Creatinine 1.14 Est Cr Clr Drug Dosing 54.9 - Risk Factors for Resistance * Antimicrobial use within the last 90 days - Clindamycin PO - Assessment & Plan Assessment 79 year old M admitted with chest pain and on PO Clindamycin for osteomyelitis of right lateral foot, starting IV Vancomycin and Cefepime for osteomyelitis, treating aggressively in case pt in need of cardiac stent. Plan Vancomycin and Cefepime for treatment of osteomyelitis Vancomycin IV * Estimated PK Parameters: Vd 0.7L/kg, Jim 0.05hr-1, t1/2 13.9hr * Loading dose: 2000 mg (23.5 mg/kg) x 1 dose now then * Maintenance dose: 1250 mg IV (14.7 mg/kg) every 14 hours * Goal trough level for osteomyelitis : 15 to 20 mcg/mL * Trough level ordered for 08/01/19 Cefepime - 2g IV q12h - reduced to 2g IV Q24H for CrCl 30-60ml/min Pharmacy will continue to follow and will adjust dose/frequency as necessary. Thank you.
--- NOTE | 2019-07-30 15:19 | History and Physical Report ---
DATE OF ADMISSION: 07/30/2019 HISTORY OF PRESENT ILLNESS: An 79-year-old man with past medical history of BPH, dyslipidemia, GERD and recent abscess in his left foot, presented to the hospital with substernal chest pain. Yesterday, patient experienced substernal chest pain that was getting much worse when he eats food immediately after he swallows either solid or liquid, chest pain resolved shortly after and he slept last night. He woke up this morning and had breakfast around 7:30 a.m. without having any chest tightness or pain, 1 hour later at 8:30 a.m., he started having substernal chest pain described as tightness and severe in nature, /10, the pain was referred to the base of his neck and his jaw, no associated symptoms. Denies any dizziness, diaphoresis, nausea or vomiting. Described the pain as tightness and scaled it 10/10. He called a friend of his with some cardiac problems, his friend advised him to take 4 baby aspirin so he did. Pain did not resolve. No associated, no aggravating, no relieving factors. He called 911 and he was given [address] subling[address] nitro and that [address] to the hospital that helped with the pain. By the time he arrived to the hospital, he was chest pain free. EKG showed some nonspecific ST-T wave changes and multiple PVCs and APCs. The patient also has an abscess in the lateral aspect of his left foot. He had an MRI of his foot done on 07/17/2019 that showed distal fifth metatarsal osteomyelitis and 1.6 cm abscess in this location. A wound culture was done at that time and grow only coagulase negative staph. The patient was placed on clindamycin and awaiting to have a removal of his left toe and left metatarsal bone of the toe. ASSESSMENT AND PLAN: 1. Unstable angina/chest pain. Admit patient to telemetry. Keep n.p.o. Start gentle IV fluid hydration. Sublingual nitro as needed for pain. Nitroglycerin patch. Consult per diem. Aspirin/empiric Lipitor. We will obtain lipid panel and hemoglobin A1c to stratify his risk factors. His current active infection complicates the picture, please refer to next point. 2. Osteomyelitis in left fifth metatarsal bone with underlying 1.6 cm abscess. Currently, on clindamycin 300 mg 3 times a day. Hold clindamycin. Obtain blood cultures and wound cultures. We will treat the infection aggressively in case he needs cardiac stent. Start him on vancomycin/cefepime. The patient reported PENICILLIN ALLERGY. When asked about that, he said he only developed some ulcers in his mouth when he took PENICILLIN one time before, which seemed from his story more like an oral thrush then allergy, he denies any rash or hives, he denies any swelling in his tongue or lips. So under these circumstances and after discussion with the patient and family, we decided to challenge him with cefepime to open the door for all cephalosporins. We will consult Dr. Turner who was supposed to operate on him as an outpatient to see if he can under the umbrella of these broad-spectrum antibiotics and after cardiology clearance operate on him while in-house to protect any new freshly placed stent, also to protect the prosthesis in both knees from getting infected. 3. Anemia with a hemoglobin range from 9-10. We will obtain anemia study including B12, folic acid, iron study, occult blood in the stool. Anemia is one of the risk factors for angina and chest pain, also will interfere in the healing of any surgical intervention in his foot. 4. BPH. Continue outpatient oral medications. 5. Newly diagnosed essential hypertension. The patient's blood pressure here was elevated. We will not add any blood pressure medicine at this time because he will be on nitroglycerin patch. Discussed with the patient if it remains elevated by tomorrow, we will consider starting a small dose beta juanjose or another blood pressure medication. The patient was never on any blood pressure meds before except what he takes for his prostate. The patient reported that the pain in his chest last night significantly increased after every swallow when he was eating his food. Aside from history of GERD and taking Protonix at home, I would suspect that he might have esophageal spasm related or unrelated to his pain. We will obtain barium swallow today. Continue Protonix. If he experiences any further pain with swallowing, he should pursue GI consult and EGD either inpatient or outpatient. Will use heparin for DVT prophylaxis. All above-mentioned plan has been discussed with the patient and family. All are in agreement. RONAL
[2019-07-30 15:47] LABS: Reticulocyte % 1.1 % (0.5-2.0); Reticulocytes # 0.04 10^6/uL (0.02-0.10)
--- NOTE | 2019-07-30 15:54 | Fluoroscopy Report ---
FL barium swallow CLINICAL HISTORY: pain in lower esophagus with swallowing COMPARISON STUDY: None FLUOROSCOPY TIME: 1.3 minutes NUMBER OF FLUOROSCOPIC IMAGES: 24 FINDINGS: The patient initiates swallowing function well. There is moderate esophageal irritability at its mid to distal aspect. Patient ingested the barium ta blet which passed easily to the stomach. IMPRESSION: Mid to distal esophageal spasm. Otherwise negative study. The above report was generated using voice recognition software. It may contain grammatical, syntax or spelling errors. Electronically signed by: Sheldon Bright M.D. 07/30/2019 3:53 PM
[2019-07-30] MEDS ORDERED: CEFEPIME 2,000 MG in SYRINGE 7.5 ML IV SCH (16:00)
[2019-07-30] MEDS ORDERED: VANCOMYCIN HCL 2,000 MG in SODIUM CHLORIDE 0.9% 500 ML IV ONE (16:00)
[2019-07-30 16:10] LABS: Ferritin 252.9 ng/ml (8-388)
[2019-07-30] MEDS ORDERED: ATORVASTATIN 40 MG TAB PO SCH (16:43)
[2019-07-30] MEDS: SODIUM CHLORIDE 0.9% 1000ML 1,000 ML IV SCH (16:44)
[2019-07-30] MEDS: LACTOBACILLUS ACIDOPHILUS 1 GM PACK PO SCH (18:51)
[2019-07-30] MEDS: NITROGLYCERIN 2% OINTMENT 30GM TUBE EXT SCH ×2 (18:51→23:42)
[2019-07-30] MEDS: TERAZOSIN HCL 5 MG CAP PO SCH (19:50)
[2019-07-30] MEDS: ROSUVASTATIN CALCIUM 5 MG TAB PO SCH (19:50)
[2019-07-30] MEDS: FINASTERIDE 5 MG TAB PO SCH (19:50)
[2019-07-30] MEDS: ALPRAZolam 0.5 MG TABLET PO SCH (20:21)
[2019-07-30] MEDS: HEPARIN SOD 5,000 UNIT/0.5 ML VIAL SQ SCH (21:10)
--- NOTE | 2019-07-30 21:14 | History & Physical Report ---
Date of Service July 30, 2019 Assessment & Plan (1) Unstable angina: . Unstable angina/chest pain. Admit patient to telemetry. Keep n.p.o. Start gentle IV fluid hydration. Sublingual nitro as needed for pain. Nitroglycerin patch. Consult brine well operator. Aspirin/empiric Lipitor. We will obtain lipid panel and hemoglobin A1c to stratify his risk factors. His current active infection complicates the picture, please refer to my plan for his osteomyelitis (2) Osteomyelitis of left foot: Osteomyelitis in left fifth metatarsal bone with underlying 1.6 cm abscess. Currently, on clindamycin 300 mg 3 times a day. Hold clindamycin. Obtain blood cultures and wound cultures. We will treat the infection aggressively in case he needs cardiac stent. Start him on vancomycin/cefepime. The patient reported PENICILLIN ALLERGY. When asked about that, he said he only developed some ulcers in his mouth when he took PENICILLIN one time before, which seemed from his story more like an oral thrush then allergy, he denies any rash or hives, he denies any swelling in his tongue or lips. So under these circumstances and after discussion with the patient and family, we decided to challenge him with cefepime to open the door for all cephalosporins. We will consult Dr. Turner who was supposed to operate on him as an outpatient to see if he can under the umbrella of these broad-spectrum antibiotics and after cardiology clearance operate on him while in-house to protect any new freshly placed stent, also to protect the prosthesis in both knees from getting infected. (3) Anemia: Anemia with a hemoglobin range from 9-10. We will obtain anemia study including B12, folic acid, iron study, occult blood in the stool. Anemia is one of the risk factors for angina and chest pain, also will interfere in the healing of any surgical intervention in his foot. (4) Benign prostatic hyperplasia: Continue outpatient oral medications. (5) Essential hypertension: Newly diagnosed essential hypertension. The patient's blood pressure here was elevated. We will not add any blood pressure medicine at this time because he will be on nitroglycerin patch. Discussed with the patient if it remains elevated by tomorrow, we will consider starting a small dose beta juanjose or another blood pressure medication. The patient was never on any blood pressure meds before except what he takes for his prostate. The patient reported that the pain in his chest last night significantly increased after every swallow when he was eating his food. Aside from history of GERD and taking Protonix at home, I would suspect that he might have esophageal spasm related or unrelated to his pain. We will obtain barium swallow today. Continue Protonix. If he experiences any further pain with swallowing, he should pursue GI consult and EGD either inpatient or outpatient. Will use heparin for DVT prophylaxis. All above-mentioned plan has been discussed with the patient and family. All are in agreement. History of Present Illness An 79-year-old man with past medical history of BPH, dyslipidemia, GERD and recent abscess in his left foot, presented to the hospital with substernal chest pain. Yesterday, patient experienced substernal chest pain that was getting much worse when he eats food immediately after he swallows either solid or liquid, chest pain resolved shortly after and he slept last night. He woke up this morning and had breakfast around 7:30 a.m. without having any chest tightness or pain, 1 hour later at 8:30 a.m., he started having substernal chest pain described as tightness and severe in nature, 10/10, the pain was referred to the base of his neck and his jaw, no associated symptoms. Denies any dizziness, diaphoresis, nausea or vomiting. Described the pain as tightness and scaled it 10/10. He called a friend of his with some cardiac problems, his friend advised him to take 4 baby aspirin so he did. Pain did not resolve. No associated, no aggravating, no relieving factors. He called 911 and he was given 1 sublingual nitro and that way to the hospital that helped with the pain. By the time he arrived to the hospital, he was chest pain free. EKG showed some nonspecific ST-T wave changes and multiple PVCs and APCs. The patient also has an abscess in the lateral aspect of his left foot. He had an MRI of his foot done on 07/17/2019 that showed distal fifth metatarsal osteomyelitis and 1.6 cm abscess in this location. A wound culture was done at that time and grow only coagulase negative staph. The patient was placed on clindamycin and awaiting to have a removal of his left toe and left metatarsal bone of the toe. Primary Care Provider: Ryan Junior Jr, DO Allergies Allergy/AdvReac Type Severity Reaction Status Date / Time Sulfa (Sulfonamide Allergy Severe RASH, Verified 07/30/19 11:22 Antibiotics) HIVES, SWOLLEN MOUTH, THROAT SWELLING Penicillins Allergy Unknown RASH, HIVES Verified 07/30/19 11:22 Home Medications Home Medications Medication Instructions Recorded Confirmed Type alprazolam 0.5 mg tablet 0.5 mg PO QAM 07/10/19 07/30/19 History alprazolam 1 mg tablet 1 mg PO HS tab 07/10/19 07/30/19 History finasteride 5 mg tablet 5 mg PO HS tab 07/10/19 07/30/19 History omeprazole 20 mg capsule,delayed 20 mg PO QAM 07/10/19 07/30/19 History release terazosin 5 mg capsule 5 mg PO HS cap 07/10/19 07/30/19 History allopurinol 100 mg PO QAM 07/30/19 07/30/19 History aspirin 81 mg PO HS 07/30/19 07/30/19 History diclofenac sodium 75 mg PO BID 07/30/19 07/30/19 History multivitamin 1 tab PO QAM 07/30/19 07/30/19 History ranitidine HCl 300 mg PO HS 07/30/19 07/30/19 History rosuvastatin 5 mg PO HS 07/30/19 07/30/19 History Past Med/Surg History Medical History Arthritis (Chronic) Benign enlargement of prostate (Chronic) GERD (gastroesophageal reflux disease) (Chronic) Gout (Chronic) Hyperlipidemia (Chronic) Surgical History H/O foot surgery (Resolved) History of bilateral knee replacement (Resolved) Social History Preferred Language: Vietnamese Communication Ability: Effective Visual Impairment: No Limitations Hearing Ability: Normal Trial Consultant Required: Yes Beliefs That Will Affect Care: None marital status: Current Living Situation: Spouse current occupational status: retired Other Information That Helps Us Care for You: No Feels Safe at Home: Yes Safety Concerns: Feels Safe At This Time Smoking Status: Never smoker Hx Alcohol Use: No Hx Substance Use: No Review of Systems Review of Systems: Review of system Constitutional: No fever / no chills / no sweats / no weakness / no fatigue Eyes: no blurring of vision / no eye pain / no discharge / no redness ENT: no hearing loss / no epistaxis /no swallowing problems Respiratory: no cough / no wheezing / no SOB / no hemoptysis Cardiovascular: Chest pain as mentioned above/ no lower extremity edema / no palpitation Abdomen: no pain / no nausea / no vomiting / no constipation Musculoskeletal: Pain in left foot as mentioned above/ no joint swelling Genitourinary: no dysuria / no incontinence / no urinary retention Neurologic: no focal weakness / no numbness/tingling / no ataxia Psychiatric: no depression symptoms / no anxiety / no insomnia Endocrine: no excessive thirst / no excessive urination Hematologic: no abnormal bleeding / no bruising / no LN swelling Skin: No rash / no pallor Physical Exam Physical Exam: Physical examination General patient appears to be comfortable, not in acute distress HEENT: Atraumatic , normocephalic /no jaundice /no pallor /anicteric /no dry mucous membrane /normal external ear inspection Neck: Supple /no swelling /central trach Heart: S1/S2 normal/regular rate and rhythm/no gallop /no rub /no murmur Lungs: Clear to auscultation bilaterally/normal chest with expansion/no rhonchi/no rales/no wheezing/no use of accessory muscles of respiration Abdomen: Soft/nontender/no guarding/no rebound/no organomegaly/no pulsatile mass Musculoskeletal: No swelling/no edema/no tenderness/normal range of motion Neuro exam: Awake alert oriented 3/cranial nerves II through XII appear to be intact/sensation intact/moves all extremities/no abnormal movements Psychiatric evaluation: No depressed mood/normal affect Skin: No rash on exposed skin area/no erythema Extremity: Lateral aspect of left foot has a large abscess with pus purulent discharge and an ulcer about 1 x 1 cm Results & Data Vital Signs (Past 12 Hours) Vital Signs Temp Pulse Pulse Resp BP BP Pulse Ox 07/30/19 20:06 36.6 C 61 18 169/84 H 96 07/30/19 17:14 36.5 C 53 L 18 160/95 H 97 07/30/19 16:55 36.5 C 53 L 20 160/95 H 97 07/30/19 16:03 67 18 164/93 H 96 07/30/19 13:00 70 18 178/87 H 98 07/30/19 11:58 60 17 165/81 H 98 07/30/19 10:34 36.7 C 76 16 145/80 H 96 Code Status & VTE Plan VTE Prophylaxis Plan VTE Prophylaxis will be ordered: Yes PG Care Time/CCT Total # of Minutes Spent Total Time Spent with Patient: Total time spent is greater than 50% in coordination of care (as documented) at patient's floor/unit and/or counseling patient:
[2019-07-31] MEDS ORDERED: SIMETHICONE 80 MG CHEW PO PRN (01:18)
[2019-07-31] MEDS ORDERED: VANCOMYCIN HCL 1,250 MG in SODIUM CHLORIDE 0.9% 250 ML IV SCH (02:00)
[2019-07-31 02:29] LABS: Basophils # (auto) 0.04 K/uL (0-0.2); Basophils % (auto) 0.3 %; Eosinophils # (auto) 0.14 K/uL (0-0.5); Eosinophils % (auto) 1.1 %; Hematocrit (blood only) 31.3 % (42-52); Hemoglobin 10.5 g/dL (14.0-18.0); Immature Granulocytes # (auto) 0.05 K/uL (0.00-0.02); Immature Granulocytes % (auto) 0.4 %; Lymphocytes % (auto) 18.9 %; Mean Corpuscular Hemoglobin 30.3 pg (25-34); Mean Corpuscular Hgb Conc 33.5 g/dL (32-36); Mean Corpuscular Volume 90.5 fL (80-100); Mean Platelet Volume 10.1 fL (7.4-10.4); Monocytes # (auto) 0.91 K/uL (0.11-0.59); Monocytes % (auto) 7.2 %; Neutrophils # (auto) 9.13 K/uL (1.4-6.5); Neutrophils % (auto) 72.1 %; Platelet Count 292 K/uL (130-400); RDW Coefficient of Variation 15.3 % (11.5-14.5); RDW Standard Deviation 50.4 fL (36.4-46.3); Red Blood Count 3.46 M/uL (4.7-6.1); White Blood Count 12.67 K/uL (4.8-10.8)
[2019-07-31 02:50] LABS: Albumin Level 3.2 gm/dl (3.4-5.0); BUN Creatinine Ratio 16.9 (10-20); Calcium 8.4 mg/dl (8.5-10.1); Creatinine Clr Calc Pharmacy 56.8 ml/min; Est GFR (African American) 79.5; Est GFR (Non-African American) 68.6; Potassium 3.8 mmol/L (3.5-5.1)
[2019-07-31 02:55] LABS: Bilirubin,Total 0.5 mg/dl (0.2-1); Globulin 3.1 gm/dl (2.5-4.0); Total Protein 6.3 gm/dl (6.4-8.2); Troponin I 0.016 ng/ml (0-0.045)
[2019-07-31] MEDS: HEPARIN SOD 5,000 UNIT/0.5 ML VIAL SQ SCH ×3 (05:31→20:43)
[2019-07-31] MEDS: NITROGLYCERIN 2% OINTMENT 30GM TUBE EXT SCH ×2 (05:41→13:42)
[2019-07-31 05:43] LABS: Estimated Average Glucose 146 mg/dl; Hemoglobin A1C 6.7 % (4.5-5.6)
[2019-07-31] MEDS: ASPIRIN 325 MG ECTAB PO SCH (08:07)
[2019-07-31] MEDS: ALPRAZolam 0.5 MG TABLET PO SCH ×2 (08:10→20:48)
[2019-07-31] MEDS: LACTOBACILLUS ACIDOPHILUS 1 GM PACK PO SCH ×3 (08:10→17:04)
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
--- NOTE | 2019-07-31 08:42 | Consultation Report ---
DATE OF CONSULTATION: 07/31/2019 CHIEF COMPLAINT: Right foot chronic pain and draining sinus. HISTORY OF PRESENT ILLNESS: The patient is an 79-year-old gentleman with multiple comorbidities who was admitted for chest pain, possible unstable angina, and abdominal pain. I saw him recently for chronic foot problem. He had a bilateral foot surgery done by a digging machine operator about a year ago and has had problems healing on his right side. He has been to wound clinic without much relief. He continues to have a slow draining sinus tract at the MTP joint of the small toe. He does have pain with weightbearing. There have been no fevers or cellulitis or major purulent drainage, but just kind of some serous drainage from this. He has been on chronic suppression antibiotics. We are considering amputation and fourth ray resection once he is ready to do that. PAST MEDICAL HISTORY: As per the admission H and P. OBJECTIVE: VITAL SIGNS: Temperature 36.7. Vital signs stable. EXTREMITIES: Examination of the right foot reveals a bandage to be in place. He does have a very small sinus tract of the lateral side of his foot. There is a little bit of serosanguineous drainage. No pus. No signs of cellulitis. X-RAYS: X-rays of the foot from previously revealed the resected fifth MTP joint. MRI: MRI reveals some edema in this area and swelling and a little bit of fluid collection. ASSESSMENT: An 79-year-old a year out from bilateral forefoot surgery with persistent pain and draining sinus tract of the right foot. He does not have any major active infection. I do not think he is bacteremic or septic from this at all. I do have to assume that there is some chronic contamination. A lot of these radiographic changes on x-ray and MRI are likely just postsurgical. I do think with this draining sinus tract, we have to assume he has got some chronic low level infection. There is certainly no urgency to this from the orthopedic standpoint. PLAN: This patient needs to get his heart and abdominal situation straightened out. It is possible that some of his abdominal pain could be due to antibiotic management over time. Treatment from our standpoint is likely fifth ray resection and hopefully being able to close this versus wound VAC management once medically stable and all these GI and cardiac issues are cleared up. Once again, there is no urgency from the orthopedic standpoint, I do not think this wound is a source of any infection or has other medical issues. We will continue to just follow along. If you have any questions or concerns, he can contact me at [phone]. I do not think there is any urgency for surgical management of his foot at this point, unless cardiology teams definitely.
[2019-07-31] MEDS ORDERED: PANTOprazole 40 MG TAB PO SCH (09:00)
--- NOTE | 2019-07-31 10:09 | Anesthesiology Consultation ---
Date of Service July 31, 2019 Assessment & Plan (1) Encounter for pre-operative examination: Chart Review Chart Review: Acceptable Risk for Surgery and Patient NOT seen in Pre Admission Testing Consults Requested none History Surgery Operation Date: 07/31/19 09:30 Proposed Procedures p Esophagogastroduodenoscopy Dr Ludwig Munroe Height/Weight Height: 5 ft 9 in Weight: 75.8 kg Allergies Allergy/AdvReac Type Severity Reaction Status Date / Time Sulfa (Sulfonamide Allergy Severe RASH, Verified 07/30/19 11:22 Antibiotics) HIVES, SWOLLEN MOUTH, THROAT SWELLING Penicillins Allergy Unknown RASH, HIVES Verified 07/30/19 11:22 Medications Home Medications Medication Instructions Recorded Confirmed Last Taken alprazolam 0.5 mg tablet 0.5 mg PO QAM 07/10/19 07/30/19 07/30/19 alprazolam 1 mg tablet 1 mg PO HS tab 07/10/19 07/30/19 07/29/19 finasteride 5 mg tablet 5 mg PO HS tab 07/10/19 07/30/19 07/29/19 omeprazole 20 mg capsule,delayed 20 mg PO QAM 07/10/19 07/30/19 07/30/19 release terazosin 5 mg capsule 5 mg PO HS cap 07/10/19 07/30/19 07/29/19 allopurinol 100 mg PO QAM 07/30/19 07/30/19 07/30/19 aspirin 81 mg PO HS 07/30/19 07/30/19 07/29/19 diclofenac sodium 75 mg PO BID 07/30/19 07/30/19 07/30/19 multivitamin 1 tab PO QAM 07/30/19 07/30/19 07/30/19 ranitidine HCl 300 mg PO HS 07/30/19 07/30/19 07/29/19 rosuvastatin 5 mg PO HS 07/30/19 07/30/19 07/29/19 Active Medications Generic Name Dose Route Start Last Admin Trade Name Freq PRN Reason Stop Dose Admin Al Hydrox/Mg Hydrox/Simethicone 15 ml 07/30/19 14:32 07/30/19 23:41 Maalox PO 08/29/19 14:31 15 ml Q4H PRN Administration Dyspepsia Alprazolam 1 mg 07/30/19 21:00 07/30/19 20:21 Xanax PO 08/29/19 20:59 1 mg HS JUAN A Administration Alprazolam 0.5 mg 07/31/19 09:00 07/31/19 08:10 Xanax PO 08/30/19 08:59 0.5 mg QAM JUAN A Administration Aspirin 325 mg 07/31/19 09:00 07/31/19 08:07 Ecotrin PO 08/30/19 08:59 325 mg QAM JUAN A Administration Finasteride 5 mg 07/30/19 21:00 07/30/19 19:50 Proscar PO 08/29/19 20:59 5 mg HS JUAN A Administration Heparin Sodium (Porcine) 5,000 units 07/30/19 22:00 07/31/19 05:31 Heparin Sodium (Porcine) SQ 08/29/19 21:59 5,000 units Q8 JUAN A Administration Cefepime HCl 2,000 mg/ Syringe 20 mls @ 5.5 mls/min 07/30/19 16:00 07/30/19 15:59 IV 08/09/19 15:59 5.5 mls/min Q24H JUAN A Administration Protocol Sodium Chloride 1,000 mls @ 60 mls/hr 07/30/19 15:00 07/30/19 16:44 Nss 1000ml IV 08/29/19 14:59 60 mls/hr .[id number] JUAN A Administration Vancomycin HCl 1,250 mg/ 275 mls @ 125 mls/hr 07/31/19 02:00 07/31/19 04:31 Sodium Chloride IV 09/11/19 01:59 Infused Q14H JUAN A Infusion Lactobacillus Acidophilus 1 gm 07/30/19 17:00 07/31/19 08:10 Floranex Granules/Powder Packet PO 08/29/19 16:59 Not Given TIDM JUAN A Nitroglycerin 1 inch 07/30/19 18:00 07/31/19 05:41 Nitro-Bid 2% EXT 08/29/19 17:59 1 inch Q6 JUAN A Administration Pantoprazole Sodium 40 mg 07/31/19 09:00 07/31/19 08:07 Protonix PO 08/30/19 08:59 40 mg DAILY JUAN A Administration Polyethylene Glycol 17 gm 07/30/19 14:32 07/31/19 08:07 Miralax Powder Packet PO 08/29/19 14:31 17 gm DAILY PRN Administration Constipation Rosuvastatin Calcium 5 mg 07/30/19 21:00 07/30/19 19:50 Crestor PO 08/29/19 20:59 5 mg HS JUAN A Administration Simethicone 80 mg 07/31/19 01:18 07/31/19 01:33 Mylicon PO 08/30/19 01:17 80 mg Q6H PRN Administration Gas or Constipation Terazosin HCl 5 mg 07/30/19 21:00 07/30/19 19:50 Hytrin PO 08/29/19 20:59 5 mg HS JUAN A Administration Past Medical History Medical History Arthritis (Chronic) Benign enlargement of prostate (Chronic) GERD (gastroesophageal reflux disease) (Chronic) Gout (Chronic) Hyperlipidemia (Chronic) Past Surgical History Surgical History H/O foot surgery (Resolved) History of bilateral knee replacement (Resolved) Social History Smoking Status: Never smoker Hx Alcohol Use: No Hx Substance Use: No Physical Exam Vital Signs Last Vital Signs Temp 36.7 C 07/31/19 07:58 Pulse 48 L 07/31/19 08:00 Resp 18 07/31/19 07:58 BP 150/77 H 07/31/19 07:58 Pulse Ox 97 07/31/19 07:58 Testing Laboratory Results 07/31/19 02:13 07/31/19 02:13 Hemoglobin A1c 6.7 % (4.5-5.6) H 07/31/19 02:13 07/30/19 Unknown Gram Stain - Final Foot,Right trop neg x 3 Electrocardiogram Date: 07/30/19 Undetermined rhythm with rate of 74, Left axis deviation, Right bundle branch block, Left ventricular hypertrophy with repolarization abnormality, Inferior infarct, age undetermined When compared with ECG of 26-APR-2018 13:36, Current undetermined rhythm precludes rhythm comparison, Right bundle branch block has replaced Non-specific intra-ventricular conduction delay
[2019-07-31] MEDS ORDERED: PROPOFOL IV EMULSION 10 MG/ML 20 ML VIAL IV ONE (10:43)
[2019-07-31] MEDS ORDERED: LIDOCAINE HCL 2% 2 ML VIAL/AMP(20MG/ML) INFIL ONE (10:43)
--- NOTE | 2019-07-31 11:10 | Cardiology Consultation ---
Date of Consultation July 31, 2019 Assessment & Plan (1) Non-cardiac chest pain: Chest pain is quite atypical for ischemic heart disease. He has had it for a prolonged episode approximately 8 hours without elevated troponins. Recommend echocardiogram given murmur and atypical chest pain. His pain occurred and intensified while swallowing food and he has an abnormal barium swallow demonstrating esophageal spasm. GI has been consulted and would defer further evaluation to GI at this time. If symptoms should change such as becoming more typical or occurring on related to swallowing, would then consider non invasive ischemic evaluation, but this is not necessary at this time. This was discussed with patient, his son, and also primary hospitalist Service, Dr. Terrazas. (2) Murmur: He states that this has been a chronic finding. Do not suspect significant valvular heart disease based on his murmur. Possibly sclerotic (or non severe stenosis) aortic valve. Echo pending. (3) Encounter for pre-operative examination: Based on his description of his chest discomfort and negative cardiac enzymes despite prolonged episodes, and also in the setting of abnormal barium swallow which would fit his description of his pain, further ischemic evaluation is not recommended at this time. Can proceed with EGD as per GI. He has recently been able to walk 3 miles per day without exertional symptoms and can achieve greater than 4 Mets still without exertional symptoms. Disposition: Cardiology will sign off, pending echo findings. Patient care discussed with Dr. Terrazas other primary hospitalist service. Thank you for allowing me to participate in the care of your patient. Please call for any other questions or concerns. Sincerely, Delvis South M.D. History of Present Illness Reason for Consultation: chest pain Requesting Physician: Dr. Angela Mahan Attending Physician: Nitin Terrazas MD History of Present Illness Mr. So is a very pleasant 79-year-old gentleman with a history significant for dyslipidemia, GERD, and chronic lower abdominal pain who presented to [facility] with chest pain. 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 He typically walks 3 miles per day but for the past few weeks has been unable to do so due to his right foot infection. With exertion however he has not had any chest discomfort, angina, shortness of breath, palpitations, syncope, or near- syncope. He presented to [facility] with chest pain yesterday. On Sunday night (2 days ago) after consuming Coke while sitting in a chair watching TV he developed a chest discomfort/tightness that was central and described as mild. It lasted for a couple of hours constantly before spontaneously resolving. There is no radiation of the pain and no associated shortness of breath or diaphoresis. When he woke up in the morning yesterday he felt well but while eating breakfast he got severe chest discomfort/tightness in his central chest. It did not radiate and there was no associated shortness of breath or diaphoresis. He eventually called EMS a few hours later was given nitroglycerin. He informed me that there was no improvement of his pain with nitroglycerin. The pain did not subside until mid afternoon yesterday. He states that the pain was constant for 7-8 hours before finally improv ing/resolving. He had very light food last evening, but otherwise has not consumed food or drink since then. He is currently chest pain-free. While here he had a barium swallow done which demonstrated esophageal spasm. He states that while he was eating his breakfast with each swallow the pain would intensify and accelerate as the food passed through was esophagus. This occurred both with solid food and coffee. He admits that he has had chronic lower abdominal discomfort which has been evaluated by other providers in the past. He denies melena, hematochezia, hematuria, or other significant bleeding. He states that he does have a chronic murmur. He denies edema, leg pain other than the site of his osteomyelitis, fevers, chills, nausea, or vomiting. Review of systems: As above. Review of systems otherwise negative/unremarkable. Family history: Father at 64 but had CABG in mid 50s. Paternal uncles all had CAD diagnosed in 50s. He has brothers with no known CAD. Social history: He does not smoke. Quit consuming alcohol in 1969. Lives at home with his he describes as disabled. He has 1 son and 2 daughters. 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 He is unaccompanied. Allergies Allergy/AdvReac Type Severity Reaction Status Date / Time Sulfa (Sulfonamide Allergy Severe RASH, Verified 07/30/19 11:22 Antibiotics) HIVES, SWOLLEN MOUTH, THROAT SWELLING Penicillins Allergy Unknown RASH, HIVES Verified 07/30/19 11:22 Home Medications Home Medications Medication Instructions Recorded Confirmed Type alprazolam 0.5 mg tablet 0.5 mg PO QAM 07/10/19 07/30/19 History alprazolam 1 mg tablet 1 mg PO HS tab 07/10/19 07/30/19 History finasteride 5 mg tablet 5 mg PO HS tab 07/10/19 07/30/19 History omeprazole 20 mg capsule,delayed 20 mg PO QAM 07/10/19 07/30/19 History release terazosin 5 mg capsule 5 mg PO HS cap 07/10/19 07/30/19 History allopurinol 100 mg PO QAM 07/30/19 07/30/19 History aspirin 81 mg PO HS 07/30/19 07/30/19 History diclofenac sodium 75 mg PO BID 07/30/19 07/30/19 History multivitamin 1 tab PO QAM 07/30/19 07/30/19 History ranitidine HCl 300 mg PO HS 07/30/19 07/30/19 History rosuvastatin 5 mg PO HS 07/30/19 07/30/19 History Patient History Medical History Arthritis (Chronic) Benign enlargement of prostate (Chronic) GERD (gastroesophageal reflux disease) (Chronic) Gout (Chronic) Hyperlipidemia (Chronic) Surgical History H/O foot surgery (Resolved) History of bilateral knee replacement (Resolved) Social History Preferred Language: Pashto Communication Ability: Effective Visual Impairment: No Limitations Hearing Ability: Normal Operator Bearer Systems Required: Yes Beliefs That Will Affect Care: None marital status: Current Living Situation: Spouse current occupational status: retired Other Information That Helps Us Care for You: No Feels Safe at Home: Yes Safety Concerns: Feels Safe At This Time Smoking Status: Never smoker Hx Alcohol Use: No Hx Substance Use: No Physical Exam Physical Exam: Gen.: No acute distress. Alert and oriented. HEENT: Anicteric sclera. Neck: No JVD. Bilateral carotid bruit versus radiation of cardiac murmur. Normal carotid upstrokes bilaterally. Cardiac: PMI was nondisplaced. No ventricular heave. Regular with occasional ectopy. Normal S1-S2. 2/6 early peaking systolic ejection murmur. No rubs, or gallops. Pulmonary: Clear to auscultation bilaterally without wheezes, rales, or rhonchi. Abdomen: Soft, nontender, nondistended, with normoactive bowel sounds. No bruits noted. Extremities: 2+ radial pulses bilaterally. 2+ posterior tibialis pulses bilaterally. No edema or cyanosis. No palpable cords. Psychiatric: Affect appears appropriate. Chest: Nontender to palpation. Results & Data Vital Signs (Past 12 Hours) Vital Signs Temp Pulse Pulse Pulse Resp BP Pulse Ox 07/31/19 10:30 36.4 C L 54 L 18 110/72 98 07/31/19 08:00 48 L 07/31/19 07:58 36.7 C 52 L 18 150/77 H 97 07/31/19 04:06 36.4 C L 56 L 18 125/70 97 07/31/19 02:38 69 07/31/19 00:24 36.5 C 57 L 16 146/68 H 98 Laboratory Results Laboratory Results - last 24 hr 07/30/19 07/30/19 07/30/19 10:12 10:12 15:18 WBC 10.50 RBC 3.55 L Hgb 10.8 L Hct 32.9 L MCV 92.7 MCH 30.4 MCHC 32.8 RDW Std Deviation 52.5 H RDW Coeff of Graham 15.4 H Plt Count 315 MPV 10.9 H Immature Gran % (Auto) 0.4 Neut % (Auto) 60.3 Lymph % (Auto) 27.0 Newberry % (Auto) 9.9 Eos % (Auto) 1.8 Baso % (Auto) 0.6 Reticulocyte % (Auto) Immature Gran # (Auto) 0.04 H Neut # (Auto) 6.34 Lymph # (Auto) 2.83 Newberry # (Auto) 1.04 H Eos # (Auto) 0.19 Baso # (Auto) 0.06 Reticulocyte # ESR Sodium 142 Potassium 3.6 Chloride 108 H Carbon Dioxide 26 Anion Gap 8.0 BUN 21 H Creatinine 1.14 Est Cr Clr Drug Dosing 54.9 Est GFR ( Amer) 69.5 Est GFR (Non-Af Amer) 60.0 BUN/Creatinine Ratio 18.7 Glucose 161 H Estimat Average Glucose Hemoglobin A1c Calcium 9.1 Iron TIBC Transferrin Ferritin Total Bilirubin 0.5 AST 9 L ALT 19 Alkaline Phosphatase 78 Troponin I < 0.015 Total Protein 6.8 Albumin 3.4 Globulin 3.4 Albumin/Globulin Ratio 1.0 Triglycerides Cholesterol LDL Cholesterol, Calc VLDL Cholesterol, Calc HDL Cholesterol Cholesterol/HDL Ratio Lipase 64 L Vitamin B12 Folate > 24.00 07/30/19 07/30/19 07/30/19 15:18 15:18 15:18 WBC RBC Hgb Hct MCV MCH MCHC RDW Std Deviation RDW Coeff of Graham Plt Count MPV Immature Gran % (Auto) Neut % (Auto) Lymph % (Auto) Newberry % (Auto) Eos % (Auto) Baso % (Auto) Reticulocyte % (Auto) 1.1 Immature Gran # (Auto) Neut # (Auto) Lymph # (Auto) Newberry # (Auto) Eos # (Auto) Baso # (Auto) Reticulocyte # 0.04 ESR Sodium Potassium Chloride Carbon Dioxide Anion Gap BUN Creatinine Est Cr Clr Drug Dosing Est GFR ( Amer) Est GFR (Non-Af Amer) BUN/Creatinine Ratio Glucose Estimat Average Glucose Hemoglobin A1c Calcium Iron TIBC 303 Transferrin 241 Ferritin 252.9 Total Bilirubin AST ALT Alkaline Phosphatase Troponin I Total Protein Albumin Globulin Albumin/Globulin Ratio Triglycerides Cholesterol LDL Cholesterol, Calc VLDL Cholesterol, Calc HDL Cholesterol Cholesterol/HDL Ratio Lipase Vitamin B12 1007 H Folate 07/30/19 07/30/19 07/31/19 15:18 20:55 02:13 WBC RBC Hgb Hct MCV MCH MCHC RDW Std Deviation RDW Coeff of Graham Plt Count MPV Immature Gran % (Auto) Neut % (Auto) Lymph % (Auto) Newberry % (Auto) Eos % (Auto) Baso % (Auto) Reticulocyte % (Auto) Immature Gran # (Auto) Neut # (Auto) Lymph # (Auto) Newberry # (Auto) Eos # (Auto) Baso # (Auto) Reticulocyte # ESR Sodium 143 Potassium 3.8 Chloride 109 H Carbon Dioxide 31 Anion Gap 3.0 BUN 17 Creatinine 1.02 Est Cr Clr Drug Dosing 56.8 Est GFR ( Amer) 79.5 Est GFR (Non-Af Amer) 68.6 BUN/Creatinine Ratio 16.9 Glucose 119 H Estimat Average Glucose Hemoglobin A1c Calcium 8.4 L Iron 45 TIBC Transferrin Ferritin Total Bilirubin 0.5 AST 10 L ALT 17 Alkaline Phosphatase 72 Troponin I < 0.015 0.016 Total Protein 6.3 L Albumin 3.2 L Globulin 3.1 Albumin/Globulin Ratio 1.0 Triglycerides 139 Cholesterol 142 LDL Cholesterol, Calc 53 VLDL Cholesterol, Calc 28 HDL Cholesterol 61 Cholesterol/HDL Ratio 2 Lipase Vitamin B12 Folate 07/31/19 07/31/19 07/31/19 02:13 02:13 02:13 WBC 12.67 H RBC 3.46 L Hgb 10.5 L Hct 31.3 L MCV 90.5 MCH 30.3 MCHC 33.5 RDW Std Deviation 50.4 H RDW Coeff of Graham 15.3 H Plt Count 292 MPV 10.1 Immature Gran % (Auto) 0.4 Neut % (Auto) 72.1 Lymph % (Auto) 18.9 Newberry % (Auto) 7.2 Eos % (Auto) 1.1 Baso % (Auto) 0.3 Reticulocyte % (Auto) Immature Gran # (Auto) 0.05 H Neut # (Auto) 9.13 H Lymph # (Auto) 2.40 Newberry # (Auto) 0.91 H Eos # (Auto) 0.14 Baso # (Auto) 0.04 Reticulocyte # ESR 28 H Sodium Potassium Chloride Carbon Dioxide Anion Gap BUN Creatinine Est Cr Clr Drug Dosing Est GFR ( Amer) Est GFR (Non-Af Amer) BUN/Creatinine Ratio Glucose Estimat Average Glucose 146 Hemoglobin A1c 6.7 H Calcium Iron TIBC Transferrin Ferritin Total Bilirubin AST ALT Alkaline Phosphatase Troponin I Total Protein Albumin Globulin Albumin/Globulin Ratio Triglycerides Cholesterol LDL Cholesterol, Calc VLDL Cholesterol, Calc HDL Cholesterol Cholesterol/HDL Ratio Lipase Vitamin B12 Folate 07/31/19 08:28 WBC RBC Hgb Hct MCV MCH MCHC RDW Std Deviation RDW Coeff of Graham Plt Count MPV Immature Gran % (Auto) Neut % (Auto) Lymph % (Auto) Newberry % (Auto) Eos % (Auto) Baso % (Auto) Reticulocyte % (Auto) Immature Gran # (Auto) Neut # (Auto) Lymph # (Auto) Newberry # (Auto) Eos # (Auto) Baso # (Auto) Reticulocyte # ESR Sodium Potassium Chloride Carbon Dioxide Anion Gap BUN Creatinine Est Cr Clr Drug Dosing Est GFR ( Amer) Est GFR (Non-Af Amer) BUN/Creatinine Ratio Glucose Estimat Average Glucose Hemoglobin A1c Calcium Iron TIBC Transferrin Ferritin Total Bilirubin AST ALT Alkaline Phosphatase Troponin I < 0.015 Total Protein Albumin Globulin Albumin/Globulin Ratio Triglycerides Cholesterol LDL Cholesterol, Calc VLDL Cholesterol, Calc HDL Cholesterol Cholesterol/HDL Ratio Lipase Vitamin B12 Folate Diagnostic Findings Telemetry personally reviewed: Sinus rhythm with PVCs and occasional ventricular couplets and triplets. Possible occasional junctional rhythm. Chart reviewed. ECG personally reviewed: ECG 07/30/2019: Sinus rhythm with frequent PVCs and possible junctional beats. RBBB. Inferior infarct. LVH. Barium Swallow 07/30/19: Mid to distal esophageal spasm. Medications Administered Current Inpatient Medications Acetaminophen (Tylenol) 650 mg PO Q4H PRN PRN Reason: Pain or Fever Stop: 08/29/19 14:31 Al Hydrox/Mg Hydrox/Simethicone (Maalox) 15 ml PO Q4H PRN PRN Reason: Dyspepsia Stop: 08/29/19 14:31 Last Admin: 07/30/19 23:41 Dose: 15 ml Documented by: Alprazolam (Xanax) 1 mg PO HS [facility] Stop: 08/29/19 20:59 Last Admin: 07/30/19 20:21 Dose: 1 mg Documented by: Alprazolam (Xanax) 0.5 mg PO QAM [facility] Stop: 08/30/19 08:59 Last Admin: 07/31/19 08:10 Dose: 0.5 mg Documented by: Aspirin (Ecotrin) 325 mg PO QAM [facility] Stop: 08/30/19 08:59 Last Admin: 07/31/19 08:07 Dose: 325 mg Documented by: Finasteride (Proscar) 5 mg PO HS [facility] Stop: 08/29/19 20:59 Last Admin: 07/30/19 19:50 Dose: 5 mg Documented by: Heparin Sodium (Porcine) (Heparin Sodium (Porcine)) 5,000 units SQ Q8 [facility] Stop: 08/29/19 21:59 Last Admin: 07/31/19 05:31 Dose: 5,000 units Documented by: Cefepime HCl 2,000 mg/ Syringe 20 mls @ 5.5 mls/min IV Q24H JUAN A; Protocol Stop: 08/09/19 15:59 Last Admin: 07/30/19 15:59 Dose: 5.5 mls/min Documented by: Sodium Chloride (Nss 1000ml) 1,000 mls @ 60 mls/hr IV .[id number] JUAN A Stop: 08/29/19 14:59 Last Admin: 07/30/19 16:44 Dose: 60 mls/hr Documented by: Vancomycin HCl 1,250 mg/ (Sodium Chloride) 275 mls @ 125 mls/hr IV Q14H JUAN A Stop: 09/11/19 01:59 Last Infusion: 07/31/19 04:31 Dose: Infused Documented by: Lactobacillus Acidophilus (Floranex Granules/Powder Packet) 1 gm PO TIDM JUAN A Stop: 08/29/19 16:59 Last Admin: 07/31/19 08:10 Dose: Not Given Documented by: Magnesium Hydroxide (Milk Of Magnesia) 30 ml PO Q12H PRN PRN Reason: Constipation Stop: 08/29/19 14:31 Miscellaneous Information (Consult) 1 ea N/A UD PRN PRN Reason: Consult Stop: 08/29/19 14:31 Morphine Sulfate (Morphine Sulfate) 2 mg IV Q30M PRN PRN Reason: Chest Pain Stop: 08/13/19 14:31 Nitroglycerin (Nitrostat) 0.4 mg SL UD PRN PRN Reason: Chest Pain Stop: 08/29/19 14:31 Nitroglycerin (Nitro-Bid 2%) 1 inch EXT Q6 JUAN A Stop: 08/29/19 17:59 Last Admin: 07/31/19 05:41 Dose: 1 inch Documented by: Pantoprazole Sodium (Protonix) 40 mg PO DAILY JUAN A Stop: 08/30/19 08:59 Last Admin: 07/31/19 08:07 Dose: 40 mg Documented by: Polyethylene Glycol (Miralax Powder Packet) 17 gm PO DAILY PRN PRN Reason: Constipation Stop: 08/29/19 14:31 Last Admin: 07/31/19 08:07 Dose: 17 gm Documented by: Rosuvastatin Calcium (Crestor) 5 mg PO HS JUAN A Stop: 08/29/19 20:59 Last Admin: 07/30/19 19:50 Dose: 5 mg Documented by: Simethicone (Mylicon) 80 mg PO Q6H PRN PRN Reason: Gas or Constipation Stop: 08/30/19 01:17 Last Admin: 07/31/19 01:33 Dose: 80 mg Documented by: Terazosin HCl (Hytrin) 5 mg PO HS JUAN A Stop: 08/29/19 20:59 Last Admin: 07/30/19 19:50 Dose: 5 mg Documented by: Zolpidem Tartrate (Ambien) 5 mg PO HS PRN PRN Reason: Sleep Stop: 08/29/19 14:31 PG Care Time/CCT Total # of Minutes Spent Total Time Spent with Patient: Total time spent is greater than 50% in coordination of care (as documented) at patient's floor/unit and/or counseling patient:
--- NOTE | 2019-07-31 11:28 | GI REPORT ---
Patient Name: Ryan So Procedure Date: 07/31/2019 11:05 AM Date of : 1940 Admit Type: Inpatient Age: 79 Gender: Male Attending MD: Marie Munroe DO Procedure: Upper GI endoscopy Providers: Marie Munroe DO Referring MD: Nitin Terrazas Md Indications: Dysphagia, Unexplained chest pain Medicines: Monitored Anesthesia Care Complications: No immediate complications. Estimated blood loss: Minimal. Estimated Blood Loss: Estimated blood loss was minimal. Procedure: Pre-Anesthesia Assessment: - Prior to the procedure, a History and Physical was performed, and patient medications, allergies and sensitivities were reviewed. The patient's tolerance of previous anesthesia was reviewed. - The risks and benefits of the procedure and the sedation options and risks were discussed with the patient. All questions were answered and informed consent was obtained. - Patient identification and proposed procedure were verified prior to the procedure by the physician, the nurse and the culinary arts instructor. The procedure was verified in the procedure room. - Pre-procedure physical examination revealed no contraindications to sedation. - ASA Grade Assessment: III - A patient with severe systemic disease. - After reviewing the risks and benefits, the patient was deemed in satisfactory condition to undergo the procedure. - The anesthesia plan was to use monitored anesthesia care (MAC). - Immediately prior to administration of medications, the patient was re-assessed for adequacy to receive sedatives. - The heart rate, respiratory rate, oxygen saturations, blood pressure, adequacy of pulmonary ventilation, and response to care were monitored throughout the procedure. - The physical status of the patient was re-assessed after the procedure. After obtaining informed consent, the endoscope was passed under direct vision. Throughout the procedure, the patient's blood pressure, pulse, and oxygen saturations were monitored continuously. The Scope was introduced through the mouth, and advanced to the third part of duodenum. The upper GI endoscopy was accomplished without difficulty. The patient tolerated the procedure well. Findings: The middle third of the esophagus and lower third of the esophagus were mildly tortuous. Two superficial esophageal "kissing" ulcers with no bleeding and no stigmata of recent bleeding were found in the middle third of the esophagus. The largest lesion was 5 mm in largest dimension. Biopsies were taken with a cold forceps for histology. Estimated blood loss was minimal. The pathology specimen was placed into Bottle A. Estimated blood loss was minimal. A mild Schatzki ring was found at the gastroesophageal junction. A guidewire was placed and the scope was withdrawn. Dilation was performed with a Savary dilator with no resistance at 54 Fr. The dilation site was examined following endoscope reinsertion and showed no change. Estimated blood loss was minimal. The entire examined stomach was normal. The examined duodenum was normal. Impression: - Tortuous esophagus. - Non-bleeding esophageal ulcers, likely related to previously impacted pill. Biopsied. - Mild Schatzki ring. Dilated to 54 Fr today. - Normal stomach. - Normal examined duodenum. Recommendation: - [facility]. - Use Protonix (pantoprazole) 40 mg PO BID for 4 weeks then 40 mg 1 time daily. - Use sucralfate suspension 1 gram PO BID for 6 weeks. - Repeat upper endoscopy in 3 months for surveillance. Marie Munroe D.O. Marie Munroe, 07/31/2019 11:28:06 AM This report has been signed electronically. Note Initiated On: 07/31/2019 11:05 AM Number of Addenda: 0 I attest to the content of the Intraoperative Record and orders documented therein, exceptions below {[id number]}
--- NOTE | 2019-07-31 11:29 | Communication Note ---
Date of Service: July 31, 2019 The patient underwent upper endoscopy with esophageal dilation today. Findings Tortuous mid and distal esophagus Schatzki's ring Kissing esophageal ulcers in the midesophagus (consistent with pill impaction in past) Esophageal dilation performed a 54 [place] Recommendations Protonix 40 mg twice daily for 4 weeks then 40 mg 1 times daily thereafter Carafate suspension twice daily for 4 weeks Repeat upper endoscopy in 3 months Advance diet as tolerated Please call with any questions or concerns, GI to sign off
[2019-07-31] MEDS: SODIUM CHLORIDE 0.9% 1000ML 1,000 ML IV SCH (12:30)
--- NOTE | 2019-07-31 12:32 | Anesthesiology Progress Note ---
Date of Service July 31, 2019 Anesthesia Post Procedure Vital Signs Vital Signs: Temp Pulse Pulse Pulse Resp BP Pulse Ox 07/31/19 12:21 36.4 C L 70 16 149/76 H 95 07/31/19 11:51 50 L 16 134/73 98 07/31/19 11:36 59 L 16 121/57 L 97 07/31/19 11:33 61 16 97/50 L 95 07/31/19 10:30 36.4 C L 54 L 18 110/72 98 07/31/19 08:00 48 L 07/31/19 07:58 36.7 C 52 L 18 150/77 H 97 07/31/19 04:06 36.4 C L 56 L 18 125/70 97 07/31/19 02:38 69 07/31/19 00:24 36.5 C 57 L 16 146/68 H 98 07/30/19 20:06 36.6 C 61 18 169/84 H 96 07/30/19 17:14 36.5 C 53 L 18 160/95 H 97 07/30/19 16:55 36.5 C 53 L 20 160/95 H 97 07/30/19 16:03 67 18 164/93 H 96 07/30/19 13:00 70 18 178/87 H 98 Pain Intensity Medial Chest: Pain Intensity: 5 Transfer of Care Handoff Completed per policy Notes Mental Status: alert / awake / arousable and participated in evaluation Nausea / Vomiting: adequately controlled Pain: adequately controlled Airway Patency, RR, SpO2: stable & adequate BP & HR: stable & adequate Hydration State: stable & adequate Anesthetic Complications: no major complications apparent and Pt Satisfied with anesthetic care
[2019-07-31] MEDS: SUCRALFATE 1 GM/10 ML UDC PO SCH ×2 (13:59→20:42)
[2019-07-31] MEDS ORDERED: BISACODYL 5 MG TABEC PO ONE (14:03)
--- NOTE | 2019-07-31 18:52 | Hospitalist Progress Note ---
Date of Service July 31, 2019 Assessment & Plan (1) Non-cardiac chest pain: Esophageal spasm and ulcers on barium swallow and EGD. Appears to have resolved. (2) Osteomyelitis of left foot: Osteomyelitis in right fifth metatarsal bone. Will switch back to outpatient clindamycin regimen now not having stress or cardiac cath and chest pain resolved. Consider inpatient management of osteomyelitis given current side effects from clindamycin. (3) Anemia: B12, folate and ferritin WNL (4) Benign prostatic hyperplasia: Continue outpatient oral medications. (5) Essential hypertension: Stable (6) DVT prophylaxis: heparin SQ Subjective Patient seen after EGD and reports complete resolution of chest pain for which he was admitted. Eating normally after EGD. Ongoing cramping after barium swallow feels he is getting constipated but otherwise baaack to his baseline self. Reviewed HPI with patient and chest pain had direct association with food. Review of Systems Review of Systems: All systems reviewed & are unremarkable except as noted in HPI & below Physical Exam Constitutional: WD/WN, vitals as above Eyes: PERRL, conjunctivae normal, anicteric sclerae ENMT: external ear and nose normal, oropharynx normal Neck: trachea midline, no thyromegaly Respiratory: normal respiratory effort, lungs clear to auscultation Cardiovascular: RRR, no murmur, no edema Gastrointestinal (Abdomen): normal bowel sounds, soft, nontender, no hepatosplenomegaly Musculoskeletal: no cyanosis or clubbing, extremities motor strength 5/5 Skin: no rashes, warm and dry (no cellulitis surrounding prior surgical wound) Neurologic: PERRL, EOMI, accommodation nl, no face palsy, no dysarthria Psychiatric: A+Ox3, euthymic affect Results & Data Vital Signs (Past 12 Hours) Vital Signs Temp Pulse Pulse Pulse Resp BP Pulse Ox 07/31/19 15:32 98.1 F 66 17 156/67 H 98 07/31/19 12:21 97.5 F L 70 16 149/76 H 95 07/31/19 11:51 50 L 16 134/73 98 07/31/19 11:36 59 L 16 121/57 L 97 07/31/19 11:33 61 16 97/50 L 95 07/31/19 10:30 97.5 F L 54 L 18 110/72 98 07/31/19 08:00 48 L 07/31/19 07:58 98.1 F 52 L 18 150/77 H 97 PG Care Time/CCT Total # of Minutes Spent Total Time Spent with Patient: Total time spent is greater than 50% in coordination of care (as documented) at patient's floor/unit and/or counseling patient:
[2019-07-31] MEDS: ROSUVASTATIN CALCIUM 5 MG TAB PO SCH (20:41)
[2019-07-31] MEDS: PANTOprazole 40 MG TAB PO SCH (20:42)
[2019-07-31] MEDS: TERAZOSIN HCL 5 MG CAP PO SCH (20:42)
[2019-07-31] MEDS: FINASTERIDE 5 MG TAB PO SCH (20:42)
[2019-07-31] MEDS: CLINDAMYCIN HCL 150 MG CAP PO SCH (21:05)
[2019-08-01] MEDS: SODIUM CHLORIDE 0.9% 1000ML 1,000 ML IV SCH (01:21)
[2019-08-01] MEDS ORDERED: VANCOMYCIN TROUGH ONE (05:30)
[2019-08-01] MEDS: HEPARIN SOD 5,000 UNIT/0.5 ML VIAL SQ SCH ×2 (06:29→15:04)
[2019-08-01 06:56] LABS: Hematocrit (blood only) 32.3 % (42-52); Hemoglobin 10.7 g/dL (14.0-18.0); Mean Corpuscular Hemoglobin 30.5 pg (25-34); Mean Corpuscular Hgb Conc 33.1 g/dL (32-36); Mean Platelet Volume 10.2 fL (7.4-10.4); Platelet Count 296 K/uL (130-400); RDW Coefficient of Variation 15.5 % (11.5-14.5); RDW Standard Deviation 51.7 fL (36.4-46.3); Red Blood Count 3.51 M/uL (4.7-6.1); White Blood Count 12.35 K/uL (4.8-10.8)
[2019-08-01 07:27] LABS: BUN Creatinine Ratio 19.3 (10-20); Creatinine Clr Calc Pharmacy 53.6 ml/min; Est GFR (African American) 74.2; Potassium 4.1 mmol/L (3.5-5.1)
[2019-08-01] MEDS: CLINDAMYCIN HCL 150 MG CAP PO SCH ×2 (08:41→15:03)
[2019-08-01] MEDS: SUCRALFATE 1 GM/10 ML UDC PO SCH (08:42)
[2019-08-01] MEDS: PANTOprazole 40 MG TAB PO SCH (08:42)
[2019-08-01] MEDS: LACTOBACILLUS ACIDOPHILUS 1 GM PACK PO SCH ×2 (08:42→15:03)
[2019-08-01] MEDS: ASPIRIN 325 MG ECTAB PO SCH (08:42)
[2019-08-01] MEDS: ALPRAZolam 0.5 MG TABLET PO SCH (08:52)
--- NOTE | 2019-08-01 09:37 | Cardiology Progress Note ---
Date of Service August 01, 2019 Assessment & Plan (1) Cardiomyopathy: Diagnosis discussed with patient, his son, and his daughters. Etiology uncertain. He does have frequent PVCs. Recommend outpatient Holter. We discussed cardiac catheterization at some point however this is not urgent. He is completely asymptomatic inThis regard and this is likely a chronic issue due to the fact that he already has a dilated left ventricle. Cardiac catheterization at this time would likely only delay his foot surgery where he has active infection. If he receives stents, surgery would need to be delayed. If he needs bypass surgery, would first recommend that the infection be dealt with. There is no urgency due to the fact that he has no angina. He has had bradycardia which is a chronic issue. Therefore, beta-juanjose will not be initiated. Please consider low-dose DONY-inhibitor which can be titrated due to his cardiomyopathy. He appears euvolemic. Would recommend low-sodium diet. He does not require diuretic at this time. (2) Non-cardiac chest pain: Symptoms much better now that he has undergone dilation of Schatzki's ring. He was also noted to have esophageal spasm on barium swallow. Ulcers were found as well during EGD. Overall, he feels much better. No anginal symptoms. (3) Murmur: Sclerotic aortic valve. He also has mild to moderate mitral regurgitation. This can be followed as an outpatient. (4) Encounter for pre-operative examination: He does have cardiomyopathy however has no anginal symptoms. He has been able to achieve greater than 4 Mets without angina. As above, cardiac catheterization would only delay surgical intervention for his osteomyelitis and abscess. Would expect that he will be elevated risk but does not appear to be high risk for surgery from a cardiology perspective. No further testing recommended prior to his foot surgery. This was discussed in detail with patient and his family at the bedside. Disposition: Recommend follow-up in a week in Cardiology office to arrange Holter monitor and adjust medical therapy as appropriate. Cardiology office is setting this up. Please call with any other questions or concerns. Subjective He feels much better following EGD and dilation of Schatzki ring. He is able to tolerate his diet well without adverse reaction. No further chest pain. He denies shortness of breath, syncope, near-syncope, palpitations, edema, or bleeding. His son was present at the bedside. Patient would like to hold off on any invasive cardiac testing until after his osteomyelitis and abscess is dealt with, which reportedly is going to occur soon as an outpatient. Patient was seen earlier this morning. Review of systems: As above. Physical Exam Physical Exam: Gen.: No acute distress. Alert and oriented. HEENT: Anicteric sclera. Neck: No JVD. Cardiac: Regular with occasional ectopy. Normal S1-S2. 2/6 early peaking systolic ejection murmur. No rubs, or gallops. Pulmonary: Clear to auscultation bilaterally without wheezes, rales, or rhonchi. Abdomen: Soft, nontender, nondistended, with normoactive bowel sounds. No bruits noted. Extremities: No edema or cyanosis. Psychiatric: Affect appears appropriate. Results & Data Vital Signs (Past 12 Hours) Vital Signs Temp Pulse Pulse Resp BP BP Pulse Ox 08/01/19 07:56 36.8 C 49 L 18 118/68 96 08/01/19 03:25 37.0 C 78 16 111/59 L 94 08/01/19 00:16 36.5 C 75 16 124/66 95 08/01/19 00:00 66 Laboratory Results Laboratory Results - last 24 hr 08/01/19 08/01/19 06:46 06:46 WBC 12.35 H RBC 3.51 L Hgb 10.7 L Hct 32.3 L MCV 92.0 MCH 30.5 MCHC 33.1 RDW Std Deviation 51.7 H RDW Coeff of Graham 15.5 H Plt Count 296 MPV 10.2 Sodium 140 Potassium 4.1 Chloride 107 Carbon Dioxide 28 Anion Gap 5.0 BUN 21 H Creatinine 1.08 Est Cr Clr Drug Dosing 53.6 Est GFR ( Amer) 74.2 Est GFR (Non-Af Amer) 64.0 BUN/Creatinine Ratio 19.3 Glucose 119 H Calcium 9.0 Diagnostic Findings EGD report reviewed from 07/31/2019. Echo 07/31/2019: Moderately dilated LV with moderately reduced systolic function. EF 35%. Akinesis of the inferolateral wall, otherwise global hypokinesis. Moderate LVH. Mild left atrial dilation. Sclerotic aortic valve. Mild to moderate MR. Telemetry personally reviewed: Sinus rhythm with possible episodes of junctional rhythm. PVCs. No sustained ventricular arrhythmia. Medications Administered Current Inpatient Medications Acetaminophen (Tylenol) 650 mg PO Q4H PRN PRN Reason: Pain or Fever Stop: 08/29/19 14:31 Al Hydrox/Mg Hydrox/Simethicone (Maalox) 15 ml PO Q4H PRN PRN Reason: Dyspepsia Stop: 08/29/19 14:31 Last Admin: 07/30/19 23:41 Dose: 15 ml Documented by: Alprazolam (Xanax) 1 mg PO HS [facility] Stop: 08/29/19 20:59 Last Admin: 07/31/19 20:48 Dose: 1 mg Documented by: Alprazolam (Xanax) 0.5 mg PO QAM [facility] Stop: 08/30/19 08:59 Last Admin: 08/01/19 08:52 Dose: 0.5 mg Documented by: Aspirin (Ecotrin Ectab) 81 mg PO QAM [facility] Stop: 09/01/19 08:59 Clindamycin HCl (Cleocin) 300 mg PO TID [facility] Stop: 09/11/19 20:59 Last Admin: 08/01/19 08:41 Dose: 300 mg Documented by: Finasteride (Proscar) 5 mg PO HS [facility] Stop: 08/29/19 20:59 Last Admin: 07/31/19 20:42 Dose: 5 mg Documented by: Heparin Sodium (Porcine) (Heparin Sodium (Porcine)) 5,000 units SQ Q8 JUAN A Stop: 08/29/19 21:59 Last Admin: 08/01/19 06:29 Dose: 5,000 units Documented by: Lactobacillus Acidophilus (Floranex Granules/Powder Packet) 1 gm PO TIDM JUAN A Stop: 08/29/19 16:59 Last Admin: 08/01/19 08:42 Dose: 1 gm Documented by: Magnesium Hydroxide (Milk Of Magnesia) 30 ml PO Q12H PRN PRN Reason: Constipation Stop: 08/29/19 14:31 Last Admin: 07/31/19 13:58 Dose: 30 ml Documented by: Nitroglycerin (Nitrostat) 0.4 mg SL UD PRN PRN Reason: Chest Pain Stop: 08/29/19 14:31 Pantoprazole Sodium (Protonix) 40 mg PO BID JUAN A Stop: 08/30/19 20:59 Last Admin: 08/01/19 08:42 Dose: 40 mg Documented by: Polyethylene Glycol (Miralax Powder Packet) 17 gm PO DAILY PRN PRN Reason: Constipation Stop: 08/29/19 14:31 Last Admin: 07/31/19 08:07 Dose: 17 gm Documented by: Rosuvastatin Calcium (Crestor) 5 mg PO [facility] Stop: 08/29/19 20:59 Last Admin: 07/31/19 20:41 Dose: 5 mg Documented by: Simethicone (Mylicon) 80 mg PO Q6H PRN PRN Reason: Gas or Constipation Stop: 08/30/19 01:17 Last Admin: 07/31/19 01:33 Dose: 80 mg Documented by: Sucralfate (Carafate) 1 gm PO BID [facility] Stop: 08/30/19 12:44 Last Admin: 08/01/19 08:42 Dose: 1 gm Documented by: Terazosin HCl (Hytrin) 5 mg PO [facility] Stop: 08/29/19 20:59 Last Admin: 07/31/19 20:42 Dose: 5 mg Documented by: PG Care Time/CCT Total # of Minutes Spent Total Time Spent with Patient: Total time spent is greater than 50% in co ordination of care (as documented) at patient's floor/unit and/or counseling patient:
[2019-08-01] MEDS ORDERED: LISINOPRIL 2.5 MG TAB PO SCH (13:15)
--- NOTE | 2019-08-01 23:07 | Discharge Summary ---
Date of Service August 01, 2019 Discharge Data Allergies Allergy/AdvReac Type Severity Reaction Status Date / Time Sulfa (Sulfonamide Allergy Severe RASH, Verified 07/30/19 11:22 Antibiotics) HIVES, SWOLLEN MOUTH, THROAT SWELLING Penicillins Allergy Unknown RASH, HIVES Verified 07/30/19 11:22 Consultations 07/30/19 13:17 ED Decision to Admit Stat 07/30/19 17:08 Consult Orthopedic Surgery Routine 07/30/19 21:38 Consult Gastroenterology Routine 07/31/19 11:11 Consult Cardiology Routine Procedures Performed Operation Date: 07/31/19 09:30 Actual Procedures p EGD Biopsy Dilatation(Not Applicable) - Marie Munroe Ordered Studies 07/30/19 14:41 FL barium swallow Stat Hospital Course (1) Non-cardiac chest pain: Esophageal spasm and ulcers on barium swallow and EGD. Appears to have resolved. (2) Osteomyelitis of left foot: Osteomyelitis in right fifth metatarsal bone. Will switch back to outp atient clindamycin regimen now not having stress or cardiac cath and chest pain resolved. Consider inpatient management of osteomyelitis given current side effects from clindamycin. (3) Anemia: B12, folate and ferritin WNL (4) Benign prostatic hyperplasia: Continue outpatient oral medications. (5) Essential hypertension: Stable (6) DVT prophylaxis: heparin SQ Discharge Plan Discharge Items Patient Disposition: Home - Self-Care Reason For Visit: CHEST PAIN Discharge Diagnosis: Esophageal spasm GERD Esophageal ulcers Schatzki Ring Cardiomyopathy Osteomyelitis Elevated A1C Activity: Resume your previous activity Non-emergency contact: Primary Care Provider Call non-emergency contact if: you have any medication questions Follow-up/Referrals: Severo South MD [Physician] - 08/07/19 9:15 am (Please, follow up at [facility] Cardiology Office with Dr. South on August 07 at 9:15 am. *The office is located in [address] of [facility]. This is the big building next to the hospital. If you need to change this appointment, call the office at [phone].) Marie Munroe [Physician] - 08/27/19 11:05 am (Please, follow up with Dr. Marie Munroe (layboy tender) on Sunday at 11:05 am. *This office is located in [facility] in [place]. The office phone number is [phone].) Tommy Turner MD [Physician] - Ryan Junior Jr, DO [Primary Care Provider] - 08/07/19 11:45 am (Please, follow up with Dr. Junior on August 07 at 11:45 am. *If you need to change this appointment, call the office at [phone].) Diet: Heart Healthy Addtl Attending Provider Instructions: You were admitted with chest pain. This appeared to be gastrointestinal in nature and subsequent barium swallow and upper endoscopy showed esophageal spasm, Schatzki ring (which was dilated) and esophageal ulcers. You were started on carafate and pantoprazole to treat this. Follow up will be arranged by Dr Hoa chacon's office, please give the office number a call if you have not heard anything after 7 days. Due to your admission for chest pain you also had an echocardiogram to evaluate this which showed a cardiomyopathy (reduced efficiency of your heart). This could be ischemic in nature (from plaque build up aka coronary artery disease). You were evaluated by cardiology and recommended having your foot surgery for osteomyelitis prior to further heart workup and you have been cleared for this surgery. Please follow up with cardiology after this surgery (call number below to arrange follow up). You also had an elevated HbA1C which is consistent with diabetes although fasting glucose levels have been normal. Recommend following up with your PCP regarding this. No medications have been started at this time due to ongoing GI cramping. Your osteomyelitis was also reviewed by Dr Turner. You should contact his office today or tomorrow to confirm outpatient surgery regaring this as delay would prolong your antibiotic course and any cardiac workup. Please continue on clindamycin as prescribed by Dr Chin up until your surgery. Recommend taking probiotics while on this antibiotic to prevent clostridium difficile (bowel) infection. Pending Studies at Discharge: No Stand-Alone Forms: My [facility] [employer] Medications and DC Order Prescriptions: New sucralfate 100 mg/mL Suspension 10 ml PO BID Qty: 420 RF: 0 clindamycin HCl 150 mg Capsule 300 mg PO TID Qty: 90 RF: 0 pantoprazole 40 mg Tablet,Delayed Release (Dr/Ec) 40 mg PO BID Qty: 60 RF: 0 Continued alprazolam [Xanax] 1 mg tablet 1 mg PO HS RF: 0 alprazolam [Xanax] 0.5 mg tablet 0.5 mg PO QAM RF: 0 finasteride [Proscar] 5 mg tablet 5 mg PO HS RF: 0 terazosin 5 mg capsule 5 mg PO HS RF: 0 multivitamin Tablet 1 tab PO QAM RF: 0 ranitidine HCl 300 mg tablet 300 mg PO HS RF: 0 allopurinol 100 mg tablet 100 mg PO QAM RF: 0 aspirin 81 mg Tablet,Delayed Release (Dr/Ec) 81 mg PO HS RF: 0 diclofenac sodium 75 mg tablet,delayed release (DR/EC) 75 mg PO BID RF: 0 rosuvastatin 5 mg tablet 5 mg PO HS RF: 0 Discontinued omeprazole 20 mg capsule,delayed release(DR/EC) 20 mg PO QAM RF: 0 Discharge Orders: Discharge Order (Routine); Ordered 08/01/19 Ordered By: Nitin Ferraro/Other Patient Handouts: Diabetes Healthy Meals, Diabetes Carbs, Diabetes Exercise Benefits, Diabetes Manage A1C Test Admission Data Admit Date/Time: 07/30/19 14:31 Attending Provider: Nitin Terrazas Admit Provider: Jerson Sherwood Primary Care Provider: Ryan Junior Jr Other Providers: Jerson Sherwood ; Tommy Turner ; Lois Tyson ; Severo South Other Interventions: Discharge Summary Assessment (RN) Last Done: 08/01/19 15:21 DC Date/Time DO NOT enter until pt leaves facility: 08/01/19 15:30
[2019-08-02] MEDS ORDERED: ASPIRIN 81 MG ECTAB PO SCH (09:00)
== END 2019-08-01 15:30 | disposition home or self-care (01) | DRG 392 ==
LOC: ED 10:26 → 2S 14:31 → SUATTDRO 14:31 → 2S 16:40

== ENCOUNTER 2019-08-11 06:12 | Observation (INO) ==
[2019-08-11] MEDS ORDERED: ACETAMINOPHEN 500 MG TAB PO STA (06:42)
[2019-08-11] MEDS ORDERED: GI COCKTAIL ED USE PO ONE (06:42)
[2019-08-11 06:50] LABS: Basophils # (auto) 0.01 K/uL (0-0.2); Basophils % (auto) 0.1 %; Eosinophils # (auto) 0.04 K/uL (0-0.5); Eosinophils % (auto) 0.2 %; Hematocrit (blood only) 28.4 % (42-52); Hemoglobin 9.6 g/dL (14.0-18.0); Immature Granulocytes # (auto) 0.06 K/uL (0.00-0.02); Immature Granulocytes % (auto) 0.3 %; Lymphocytes # (auto) 0.87 K/uL (1.2-3.4); Lymphocytes % (auto) 4.4 %; Mean Corpuscular Hemoglobin 30.7 pg (25-34); Mean Corpuscular Hgb Conc 33.8 g/dL (32-36); Mean Corpuscular Volume 90.7 fL (80-100); Mean Platelet Volume 10.5 fL (7.4-10.4); Monocytes # (auto) 0.85 K/uL (0.11-0.59); Monocytes % (auto) 4.3 %; Neutrophils # (auto) 17.96 K/uL (1.4-6.5); Neutrophils % (auto) 90.7 %; Platelet Count 238 K/uL (130-400); RDW Coefficient of Variation 15.7 % (11.5-14.5); RDW Standard Deviation 52.1 fL (36.4-46.3); Red Blood Count 3.13 M/uL (4.7-6.1); White Blood Count 19.79 K/uL (4.8-10.8)
[2019-08-11 06:58] LABS: Alanine Aminotransferase 14 U/L (12-78); Albumin Level 2.9 gm/dl (3.4-5.0); Aspartate Aminotransferase 12 U/L (15-37); BUN Creatinine Ratio 22.8 (10-20); Blood Urea Nitrogen 31 mg/dl (7-18); Calcium 8.2 mg/dl (8.5-10.1); Carbon Dioxide 24 mmol/L (21-32); Chloride 104 mmol/L (98-107); Creatinine Clr Calc Pharmacy 43.7 ml/min; Est GFR (African American) 55.7; Glucose 189 mg/dl (70-99); Lipase 35 U/L (73-393); Potassium 3.9 mmol/L (3.5-5.1); Sodium 137 mmol/L (136-145)
[2019-08-11 07:02] LABS: Alkaline Phosphatase 67 U/L (45-117); Bilirubin,Total 0.7 mg/dl (0.2-1); Globulin 2.9 gm/dl (2.5-4.0); Total Protein 5.8 gm/dl (6.4-8.2); Troponin I < 0.015 ng/ml (0-0.045)
[2019-08-11] MEDS ORDERED: cefTRIAXone SODIUM 1,000 MG/50 ML BAG IV STA (07:44)
--- NOTE | 2019-08-11 07:46 | XRay Report ---
XR chest 1V portable CLINICAL HISTORY: Atypical chest pain COMPARISON STUDY: 07/30/2019 FINDINGS: The heart is at the upper limits of normal in size. There is no failure. There is no lobar consolidation. There is minor basilar atelectasis/scarring unchanged from the prior study. There are no significant pleural effusions.[ IMPRESSION: AP portable study. No acute findings. Electronically signed by: Isrrael Perez M.D. 08/11/2019 7:45 AM
--- NOTE | 2019-08-11 08:19 | XRay Report ---
XR foot RT min 3V routine CLINICAL HISTORY: post op, osteo, infection COMPARISON: 07/13/2019 DISCUSSION: There are postsurgical changes of a proximal fifth metatarsal amputation. No acute fractu res are visualized. There is no gas within soft tissues. No bony destructive changes are delineated. Osteoarthritic changes are again evident within the hindfoot midfoot and forefoot. Small cystic lucen cies persist within the proximal phalanx of the fourth toe. IMPRESSION: 1. Interval fifth metatarsal amputation. 2. Otherwise stable examination. Electronically signed by: Isrrael Perez M.D. 08/11/2019 8:18 AM
[2019-08-11] MEDS ORDERED: SODIUM CHLORIDE 0.9% 1000ML 500 ML IV ONE (08:28)
--- NOTE | 2019-08-11 08:29 | Emergency Department Note ---
Entered by Ryan Whiting acting as a scribe for History of Present Illness General Chief complaint: Chest Pain Stated complaint: chest pain Source: patient History of Present Illness Provider complaint: Chest pain Onset (ago): day(s) 1 Location: chest Radiation: non-radiation Pain Consistency: + constant Maximum Pain Intensity: 3 Current Pain Intensity: 3 Quality: + other (Tightness) Relieved By: + none Exacerbated By: + movement Associated symptoms: + fever/chills and + shortness of breath; no cough The patient is an 79 year old male who presents to the Emergency Room with complaints of constant chest pain that started earlier this morning around 02:00, 4.5 hours ago. The patient states he started not feeling well yesterday morning with uncontrollable chills and body tremors. The patient notes he was able to fall asleep but woke up throughout the night with chest tightness that he would rank a 5/10. The patient adds that he has been short of breath especially with ambulation. Currently the patient rates his pain a 3/10 but notes it is more prominent when he takes a deep breath. Upon arrival to the ED the patient was also running a low grade fever. The patient denies any lower extremity swelling, abdominal pain, or cough. The patient mentioned that 5 days ago he had the 5th digit on his right foot amputated by Dr. Turner. He is currently on Keflex. Home Medications Home Medications Medication Instructions Recorded Confirmed Type alprazolam 0.5 mg tablet 0.5 mg PO QAM 07/10/19 08/11/19 History finasteride 5 mg tablet 5 mg PO HS tab 07/10/19 08/11/19 History terazosin 5 mg capsule 5 mg PO HS cap 07/10/19 08/11/19 History allopurinol 100 mg PO QAM 07/30/19 08/11/19 History aspirin 81 mg PO HS 07/30/19 08/11/19 History diclofenac sodium 75 mg PO BID 07/30/19 08/11/19 History multivitamin 1 tab PO QAM 07/30/19 08/11/19 History ranitidine HCl 300 mg PO HS 07/30/19 08/11/19 History rosuvastatin 5 mg PO HS 07/30/19 08/11/19 History pantoprazole 40 mg PO BID #60 tab 08/01/19 08/11/19 Rx sucralfate 10 ml PO BID #420 ml 08/01/19 08/11/19 Rx alprazolam 1 mg PO QPM 08/04/19 08/11/19 History cephalexin [Keflex] 500 mg PO TID 14 Days #42 cap 08/06/19 08/11/19 Rx omeprazole 40 mg PO DAILY 08/11/19 08/11/19 History tramadol 50 - 100 mg PO Q6H PRN 08/11/19 08/11/19 History Allergies Allergy/AdvReac Type Severity Reaction Status Date / Time Sulfa (Sulfonamide Allergy Severe RASH, Verified 08/11/19 06:30 Antibiotics) HIVES, SWOLLEN MOUTH, THROAT SWELLING Penicillins Allergy Mild RASH, HIVES Verified 08/11/19 06:30 Past Med/Surg History Medical History Frequent PVCs Schatzki's ring Esophageal ulcer Mitral regurgitation Cardiomyopathy Essential hypertension Benign prostatic hyperplasia Anemia Osteomyelitis of left foot Arthritis (Chronic) GERD (gastroesophageal reflux disease) (Chronic) Gout (Chronic) Hyperlipidemia (Chronic) Anxiety Cardiac murmur follows with Dr. South History of colon polyps Osteoarthritis Surgical History S/P dilatation of esophageal stricture H/O foot surgery (Resolved) bilt feet History of bilateral knee replacement (Resolved) History of cardiac cath in 1960s--no stents History of colonoscopy History of esophagogastroduodenoscopy (EGD) with dilation History of tonsillectomy and adenoidectomy History of wisdom tooth extraction Family History Father Family history of diabetes mellitus Other No family history of adverse response to anesthesia Social History Preferred Language: Citizen Of [place] Communication Ability: Effective Visual Impairment: No Limitations Hearing Ability: Normal Secretary Receptionist Required: No Beliefs That Will Affect Care: None marital status: Current Living Situation: Spouse current occupational status: retired Other Information That Helps Us Care for You: No Feels Safe at Home: Yes Safety Concerns: Feels Safe At This Time Smoking Status: Never smoker Do You Dip or Chew Tobacco: No (quit 1964) ; Second Hand Exposure: No ; Tobacco Cessation Education Requested by Patient: No Hx Alcohol Use: No Hx Substance Use: No Review of Systems See HPI for pertinent positives & negatives. and A total of 10 systems reviewed and were otherwise negative Physical Exam Vital Signs Vital Signs - 24 hr 08/11/19 06:15 08/11/19 06:45 08/11/19 07:50 Temperature 37.9 C H Temperature Source Oral Sepsis Recent Fever Within 48 Hours Yes Sepsis New/Unexplained Change in Mental Status No Sepsis Action Taken by Nursing Adv Provider Notified Pulse Rate 92 H 74 Pulse Rate [Right Finger] 68 Pulse Rhythm Regular Regular Pulse Strength Normal Respiratory Rate 22 20 20 Respiratory Effort / Characteristics Non-Labored Spontaneous Non-Labored Respiratory Depth Normal Normal Respiratory Pattern Regular Blood Pressure 132/61 Blood Pressure [Left Arm] 102/54 L Blood Pressure Mean 84 Blood Pressure Mean [Left Arm] 70 Pulse Oximetry 96 93 96 Oxygen Delivery Method Room Air Room Air Room Air 08/11/19 08:00 08/11/19 08:30 08/11/19 09:00 Temperature Temperature Source Sepsis Recent Fever Within 48 Hours Sepsis New/Unexplained Change in Mental Status Sepsis Action Taken by Nursing Pulse Rate Pulse Rate [Right Finger] 68 68 72 Pulse Rhythm Pulse Strength Respiratory Rate 20 68 H 22 Respiratory Effort / Characteristics Non-Labored Non-Labored Respiratory Depth Normal Normal Respiratory Pattern Blood Pressure Blood Pressure [Left Arm] 113/62 143/54 H 127/62 Blood Pressure Mean Blood Pressure Mean [Left Arm] 79 83 83 Pulse Oximetry 92 22 L 96 Oxygen Delivery Method Room Air Room Air Room Air GENERAL: Awake, alert, well-appearing, in no distress HENT: Normocephalic, atraumatic. EYES: Normal conjunctiva. Sclera non-icteric. NECK: Supple. No nuchal rigidity. RESPIRATORY: Clear to auscultation. No wheezes. Normal respiratory effort. CARDIAC: Normal rate. Normal rhythm. Extremities warm and well perfused. GI: Soft, non-distended. No tenderness to palpation. No rebound or guarding RECTAL: Deferred. MUSCULOSKELETAL: Atraumatic. Chest examination reveals no tenderness. LOWER EXTREMITIES: Calves are equal size bilaterally and non-tender. No edema. Right foot is bandaged. Removing bandaging shows the right foot has a healing lateral surgical wound with trace contusion, no crepitus or purulence. NEURO: Normal sensorium. No sensory or motor deficits noted. No facial droop. SKIN: Warm and dry. No jaundice noted. Course 0635: Past medical records reviewed. The patient was evaluated in room B02, and a complete history and physical examination were performed. 0725: I reevaluated and updated the patient on the plan for today's work up. He agreed with the plan. 0853: I spoke to Dr. Givens [facility] Hospitalist about the patient's case. He is going to accept the patient for further evaluation. 0900: I reevaluated and updated the patient on results. We also discussed the treatment plan and he is in agreement with the plan. Consultations Consultation #1: I spoke to Dr. Givens [facility] Hospitalist about the patient's case. He is going to accept the patient for further evaluation. Time: 08:53 Administered Medications Discontinued Medications Acetaminophen (Tylenol) 1,000 mg PO NOW STA Stop: 08/11/19 06:43 Last Admin: 08/11/19 06:52 Dose: 1,000 mg Documented by: [id number] Al Hydrox/Mg Hydrox/Simethicone () 1 dose PO ONE ONE Stop: 08/11/19 06:43 Last Admin: 08/11/19 06:52 Dose: 1 dose Documented by: [id number] Ceftriaxone Sodium (Rocephin) 1,000 mg in 50 mls @ 100 mls/hr IV NOW STA Stop: 08/11/19 08:13 Last Infusion: 08/11/19 08:27 Dose: 0 mls/hr Documented by: [id number] Admin: 08/11/19 07:51 Dose: 100 mls/hr Documented by: [id number] Sodium Chloride (Nss 1000ml) 500 mls @ 999 mls/hr IV .Q31M ONE Stop: 08/11/19 08:58 Last Infusion: 08/11/19 09:23 Dose: 0 mls/hr Documented by: [id number] Admin: 08/11/19 08:30 Dose: 999 mls/hr Documented by: [id number] Medical Decision Making Differential Diagnosis Differential diagnoses includes but is not limited to acute coronary syndrome, myocardial infarction, pericarditis, pulmonary embolus, aortic dissection, pneumonia, pneumothorax, musculoskeletal, shingles, esophageal, viral syndrome, otitis, pharyngitis, pneumonia, influenza, meningitis, urinary tract infection, sepsis, bacteremia, as well as others were entertained. Medical Records Attestation: I reviewed the patient's medical records. Home Medications Current Medication List: was personally reviewed by me Laboratory Data Attestation: I reviewed the patient's lab results. Result diagrams: 08/11/19 06:18 08/11/19 06:18 Lab Results 08/11/19 08/11/19 08/11/19 Range/Units 06:18 06:18 06:18 WBC 19.79 H (4.8-10.8) K/uL RBC 3.13 L (4.7-6.1) M/uL Hgb 9.6 L (14.0-18.0) g/dL Hct 28.4 L (42-52) % MCV 90.7 (80-100) fL MCH 30.7 (25-34) pg MCHC 33.8 (32-36) g/dL RDW Std Deviation 52.1 H (36.4-46.3) fL RDW Coeff of Graham 15.7 H (11.5-14.5) % Plt Count 238 (130-400) K/uL MPV 10.5 H (7.4-10.4) fL Immature Gran % (Auto) 0.3 % Neut % (Auto) 90.7 % Lymph % (Auto) 4.4 % Mchenry % (Auto) 4.3 % Eos % (Auto) 0.2 % Baso % (Auto) 0.1 % Immature Gran # (Auto) 0.06 H (0.00-0.02) K/uL Neut # (Auto) 17.96 H (1.4-6.5) K/uL Lymph # (Auto) 0.87 L (1.2-3.4) K/uL Mchenry # (Auto) 0.85 H (0.11-0.59) K/uL Eos # (Auto) 0.04 (0-0.5) K/uL Baso # (Auto) 0.01 (0-0.2) K/uL ESR 14 (0-14) mm/hr Sodium 137 (136-145) mmol/L Potassium 3.9 (3.5-5.1) mmol/L Chloride 104 (98-107) mmol/L Carbon Dioxide 24 (21-32) mmol/L Anion Gap 9.0 (3-11) BUN 31 H (7-18) mg/dl Creatinine 1.37 (0.6-1.4) mg/dl Est Cr Clr Drug Dosing 43.7 ml/min Est GFR ( Amer) 55.7 Est GFR (Non-Af Amer) 48.0 BUN/Creatinine Ratio 22.8 H (10-20) Glucose 189 H (70-99) mg/dl POC Lactic Acid Hilario (0.90-1.70) mmol/L Calcium 8.2 L (8.5-10.1) mg/dl Total Bilirubin 0.7 (0.2-1) mg/dl AST 12 L (15-37) U/L ALT 14 (12-78) U/L Alkaline Phosphatase 67 (45-117) U/L Troponin I < 0.015 (0-0.045) ng/ml Total Protein 5.8 L (6.4-8.2) gm/dl Albumin 2.9 L (3.4-5.0) gm/dl Globulin 2.9 (2.5-4.0) gm/dl Albumin/Globulin Ratio 1.0 (0.9-2) Lipase 35 L (73-393) U/L 08/11/19 Range/Units 06:56 WBC (4.8-10.8) K/uL RBC (4.7-6.1) M/uL Hgb (14.0-18.0) g/dL Hct (42-52) % MCV (80-100) fL MCH (25-34) pg MCHC (32-36) g/dL RDW Std Deviation (36.4-46.3) fL RDW Coeff of Graham (11.5-14.5) % Plt Count (130-400) K/uL MPV (7.4-10.4) fL Immature Gran % (Auto) % Neut % (Auto) % Lymph % (Auto) % Mchenry % (Auto) % Eos % (Auto) % Baso % (Auto) % Immature Gran # (Auto) (0.00-0.02) K/uL Neut # (Auto) (1.4-6.5) K/uL Lymph # (Auto) (1.2-3.4) K/uL Mchenry # (Auto) (0.11-0.59) K/uL Eos # (Auto) (0-0.5) K/uL Baso # (Auto) (0-0.2) K/uL ESR (0-14) mm/hr Sodium (136-145) mmol/L Potassium (3.5-5.1) mmol/L Chloride (98-107) mmol/L Carbon Dioxide (21-32) mmol/L Anion Gap (3-11) BUN (7-18) mg/dl Creatinine (0.6-1.4) mg/dl Est Cr Clr Drug Dosing ml/min Est GFR ( Amer) Est GFR (Non-Af Amer) BUN/Creatinine Ratio (10-20) Glucose (70-99) mg/dl POC Lactic Acid Hilario 1.19 (0.90-1.70) mmol/L Calcium (8.5-10.1) mg/dl Total Bilirubin (0.2-1) mg/dl AST (15-37) U/L ALT (12-78) U/L Alkaline Phosphatase (45-117) U/L Troponin I (0-0.045) ng/ml Total Protein (6.4-8.2) gm/dl Albumin (3.4-5.0) gm/dl Globulin (2.5-4.0) gm/dl Albumin/Globulin Ratio (0.9-2) Lipase (73-393) U/L Imaging Data Radiologist's Impression: Radiology results as stated below per my review and the radiologist's interpretation: XR chest 1V portable CLINICAL HISTORY: Atypical chest pain COMPARISON STUDY: 07/30/2019 FINDINGS: The heart is at the upper limits of normal in size. There is no failure. There is no lobar consolidation. There is minor basilar atelectasis/scarring unchanged from the prior study. There are no significant pleural effusions.[ IMPRESSION: AP portable study. No acute findings. Electronically signed by: Isrrael Perez M.D. 08/11/2019 7:45 AM XR foot RT min 3V routine CLINICAL HISTORY: post op, osteo, infection COMPARISON: 07/13/2019 DISCUSSION: There are postsurgical changes of a proximal fifth metatarsal amputation. No acute fractures are visualized. There is no gas within soft tissues. No bony destructive changes are delineated. Osteoarthritic changes are again evident within the hindfoot midfoot and forefoot. Small cystic lucencies persist within the proximal phalanx of the fourth toe. IMPRESSION: 1. Interval fifth metatarsal amputation. 2. Otherwise stable examination. Electronically signed by: Isrrael Perez M.D. 08/11/2019 8:18 AM ECG Data Attestation: I personally reviewed and interpreted this ECG as follows: Indication: chest pain Rate (beats per minute): 86 Rhythm: sinus rhythm Findings: + other (Intraventricular conduction delay) and + PVC; no ST depression and no ST elevation Comparison ECG Date: from (07/31/19) Change: no significant change Blood Pressure Blood Pressure Findings: Low blood pressure Blood Pressure Disposition: further management by hospitalist ARGENIS Narrative Patient is an 79-year-old gentleman with a past medical history including hypertension, anemia, GERD, Schatzki ring, cardiomyopathy and osteomyelitis of the right toe status post surgery 5 days ago presenting via EMS today with a complaint of chest pain. Recently admitted just over a week ago for evaluation of chest pain. Seen by cardiology at that time who recommended optimization of his medical regimen to and treatment of his infection before proceeding with additional diagnostic procedures. Seen in the outpatient cardiology clinic on the 26, 4 days ago with plans for outpatient cardiac catheterization to 3 weeks to further evaluate cardiomyopathy. Patient endorses chills since yesterday around 2 AM developed some mid chest discomfort. Has moderated some. No shortness of breath. No recent leg swelling. Borderline fever here given some Tylenol. Cultures obtained as well as lactate. Denies any significant swelling or pain from his foot with recent amputation. EKG without significant changes. Troponin negative. Given GI cocktail significant there is a GI component to this. Patient's laboratory studies do show evidence of worsening leukocytosis now elevated at 19,000. ESR improving. Patient has been on Keflex as an ou tpatient. Patient was noted on telemetry monitoring her to have a 6 beat run of V. tach while here. Self terminated. Patient symptoms yesterday and overnight describe what sounds like rigors. Blood cultures were sent. Lactate not elevated. Gentle hydration given CHF issues. Evaluating the foot the wound looks well-healed without evidence of obvious crepitus or purulence. X-ray without significant findings of the foot. Given a dose of ceftriaxone for antibiotic coverage expansion given the rigors reported and his leukocytosis. Discussed with the patient and the hospitalist and I recommend observation here given the concerns for infection spreading with his symptoms and elevated WBC. ?foot as source. Impression & Plan Rigors, Atypical chest pain, Weakness Discharge Plan Visit Data *Final* Discharge Date/Time: 08/11/19 10:24 Chief Complaint: Chest Pain Stated Complaint: chest pain ED Provider: Cyril Dodson Discharge Problem: Rigors, Atypical chest pain, Weakness Patient Disposition: Admitted As Inpatient Discharge Instructions Interventions: ED Discharge Assessment Last Done: 08/11/19 10:24 The sunilibe's documentation has been prepared under my direction and personally reviewed by me in its entirety. I confirm that the note above accurately reflects all work, treatment, procedures, and medical decision making performed by me.
[2019-08-11] MEDS ORDERED: ONDANSETRON INJ 2 MG/ML 2 ML VIAL IV PRN (12:00)
[2019-08-11] MEDS ORDERED: ACETAMINOPHEN 325 MG TAB PO PRN (12:00)
[2019-08-11] MEDS ORDERED: INFLUENZA VIRUS QUAD VACCINE 0.5 ML SYR IM ONE (13:15)
[2019-08-11] MEDS ORDERED: INFLUENZA ADMINISTRATION CHARGE ONE (13:15)
[2019-08-11] MEDS: HEPARIN SOD 5,000 UNIT/0.5 ML VIAL SQ SCH ×2 (13:52→21:19)
--- NOTE | 2019-08-11 15:16 | XRay Report ---
KUB CLINICAL HISTORY: Generalized abdominal pain. FINDINGS: 2 AP supine abdominal radiographs are compared to study dated 01/10/2018 and correlated with abdominal CT dated 06/08/2017. There is a nonobstructed abdominal bowel gas pattern. There is retained enteric contrast within numerous colonic diverticula. No evidence of intraperitoneal free air is see n on these supine images. There are no abnormal abdominal calcifications. Prostatic calcifications ar e seen in the pelvis. Mild colonic fecal retention is observed. The skeletal structures are osteopeni c. Advanced lumbosacral spondylosis is noted. IMPRESSION: 1. Nonobstructed abdominal bowel gas pattern. 2. There is retained enteric contrast within numerous colonic diverticula. Electronically signed by: Niraj Almeida M.D. 08/11/2019 3:14 PM
[2019-08-11] MEDS ORDERED: CEFEPIME 2,000 MG in SYRINGE 7.5 ML IV SCH (16:00)
--- NOTE | 2019-08-11 16:46 | History & Physical Report ---
Date of Service August 11, 2019 Assessment & Plan (1) Rigors: one episode 24 hours prior to admission unclear etiology, no signs of pneumonia, UTI, abdomen benign and foot s/p 5th toe amputation is clean will monitor for any further symptoms low grade temp in the ED but no true fever (2) Atypical chest pain: likely esophageal pain since symptoms resolved with Maalox had pill esophagitis last admission continue Protonix BID and Carafate cycle troponin x 3 sets (3) Weakness: will offer supportive care have him ambulate prior to discharge to make sure he is strong enough (4) Osteomyelitis of left foot: prior 5th toe amputation surgical site clean, no (5) Leukocytosis: unclear etiology no clear signs of infection could be due to a viral infection given the rigors and chills will repeat tomorrow place on Cefepime empirically follow up blood cultures History of Present Illness Chief Complaint: I had chest pain Primary Care Provider: Ryan Junior Jr, DO 79 yo male with recent history of right 5th toe amputation for osteomyelitis, occurred 5 days ago, presented to the ED in the morning for chest pain of several hours duration. He said he was feeling well after the amputation. No pain or swelling in the foot. He was breathing well, no chest pain, eating well. He was visiting his at [facility] on Sunday, two days prior to admission, and in the afternoon he developed rigors and chills and a fever and sweats. This lasted for several hours to his recollection. He took two Eccedrin tablets cause he didn't have any Tylenol and he said his symptoms resolved. While he had the rigors he also had some abdominal pain in the umbilical region, some nausea. He moved his bowels, they were formed to his recollection. He never vomited. He said he felt well on Sunday and had no issues most of the day. He visited his again at [place]. In the evening he started to have some mild chest pain that was similar to prior admission when he was found to have pill esophagitis. The pain persisted until he came to the ED and had Maalox which resolved the pain completely. On work up in the ED his WBC was up at 19k which was odd because it was never that high even with the osteomyelitis. His ESR was down to normal compared to prior values. His BMP showed Cr of 1.3, electrolytes stable, troponin negative. CXR was normal. UA showed no WBC. Blood cultures drawn in the ED. He was given Rocephin because he was already taking Keflex. Upon arrival to the floor he was feeling well, no chest pain, no abdominal pain, no nausea, no rigors or chills. Allergies Allergy/AdvReac Type Severity Reaction Status Date / Time Sulfa (Sulfonamide Allergy Severe RASH, Verified 08/11/19 06:30 Antibiotics) HIVES, SWOLLEN MOUTH, THROAT SWELLING Penicillins Allergy Mild RASH, HIVES Verified 08/11/19 06:30 Home Medications Home Medications Medication Instructions Recorded Confirmed Type alprazolam 0.5 mg tablet 0.5 mg PO QAM 07/10/19 08/11/19 History finasteride 5 mg tablet 5 mg PO HS tab 07/10/19 08/11/19 History terazosin 5 mg capsule 5 mg PO HS cap 07/10/19 08/11/19 History allopurinol 100 mg PO QAM 07/30/19 08/11/19 History aspirin 81 mg PO HS 07/30/19 08/11/19 History diclofenac sodium 75 mg PO BID 07/30/19 08/11/19 History multivitamin 1 tab PO QAM 07/30/19 08/11/19 History ranitidine HCl 300 mg PO HS 07/30/19 08/11/19 History rosuvastatin 5 mg PO HS 07/30/19 08/11/19 History pantoprazole 40 mg PO BID #60 tab 08/01/19 08/11/19 Rx sucralfate 10 ml PO BID #420 ml 08/01/19 08/11/19 Rx alprazolam 1 mg PO QPM 08/04/19 08/11/19 History cephalexin [Keflex] 500 mg PO TID 14 Days #42 cap 08/06/19 08/11/19 Rx omeprazole 40 mg PO DAILY 08/11/19 08/11/19 History tramadol 50 - 100 mg PO Q6H PRN 08/11/19 08/11/19 History Past Med/Surg History Medical History Frequent PVCs Schatzki's ring Esophageal ulcer Mitral regurgitation Cardiomyopathy Essential hypertension Benign prostatic hyperplasia Anemia Osteomyelitis of left foot Arthritis (Chronic) GERD (gastroesophageal reflux disease) (Chronic) Gout (Chronic) Hyperlipidemia (Chronic) Anxiety Cardiac murmur follows with Dr. South History of colon polyps Osteoarthritis Surgical History S/P dilatation of esophageal stricture H/O foot surgery (Resolved) bilt feet History of bilateral knee replacement (Resolved) History of cardiac cath in 1960s--no stents History of colonoscopy History of esophagogastroduodenoscopy (EGD) with dilation History of tonsillectomy and adenoidectomy History of wisdom tooth extraction Family History Father Family history of diabetes mellitus Other No family history of adverse response to anesthesia Social History Preferred Language: Filipino Communication Ability: Effective Visual Impairment: No Limitations Hearing Ability: Normal Order Detailer Required: No Beliefs That Will Affect Care: None marital status: Current Living Situation: Spouse current occupational status: retired Other Information That Helps Us Care for You: No Feels Safe at Home: Yes Safety Concerns: Feels Safe At This Time Smoking Status: Never smoker Do You Dip or Chew Tobacco: No (quit 1964) ; Second Hand Exposure: No ; Tobacco Cessation Education Requested by Patient: No Hx Alcohol Use: No Hx Substance Use: No Review of Systems Review of Systems: All systems reviewed & are unremarkable except as noted in HPI & below Physical Exam Constitutional: WD/WN, vitals as above Eyes: PERRL, conjunctivae normal, anicteric sclerae ENMT: external ear and nose normal, oropharynx normal Neck: trachea midline, no thyromegaly Respiratory: normal respiratory effort, lungs clear to auscultation Cardiovascular: RRR, no murmur, no edema Gastrointestinal (Abdomen): normal bowel sounds, soft, nontender, no hepatosplenomegaly Musculoskeletal: no cyanosis or clubbing, extremities motor strength 5/5 Skin: no rashes, warm and dry Neurologic: patellar DTR's 2+ bilat, sensation intact and PERRL, EOMI, accommodation nl, no face palsy, no dysarthria Psychiatric: A+Ox3, euthymic affect Lymphatic: no cervical or axillary lymphadenopathy Results & Data Vital Signs (Past 12 Hours) Vital Signs Temp Pulse Pulse Resp BP BP BP 08/11/19 15:51 36.8 C 61 18 129/65 09/30/19 11:20 36.9 C 64 18 129/57 L 08/11/19 10:15 72 22 116/55 L 08/11/19 09:00 72 22 127/62 08/11/19 08:30 68 68 H 143/54 H 08/11/19 08:00 68 20 113/62 08/11/19 07:50 68 20 102/54 L 08/11/19 06:45 74 20 08/11/19 06:15 37.9 C H 92 H 22 132/61 Pulse Ox 08/11/19 15:51 96 08/11/19 11:20 96 08/11/19 10:15 96 08/11/19 09:00 96 08/11/19 08:30 22 L 08/11/19 08:00 92 08/11/19 07:50 96 08/11/19 06:45 93 08/11/19 06:15 96 Laboratory Results Laboratory Results - last 24 hr 08/11/19 08/11/19 08/12/19 14:01 19:56 05:00 WBC RBC Hgb Hct MCV MCH MCHC RDW Std Deviation RDW Coeff of Graham Plt Count MPV Immature Gran % (Auto) Neut % (Auto) Lymph % (Auto) [place] % (Auto) Eos % (Auto) Baso % (Auto) Immature Gran # (Auto) Neut # (Auto) Lymph # (Auto) [place] # (Auto) Eos # (Auto) Baso # (Auto) Sodium Potassium Chloride Carbon Dioxide Anion Gap BUN Creatinine Est Cr Clr Drug Dosing Est GFR ( Amer) Est GFR (Non-Af Amer) BUN/Creatinine Ratio Glucose Calcium Troponin I < 0.015 < 0.015 Urine Color Yellow Urine Appearance Clear Urine pH 6.0 Ur Specific [place] 1.012 Urine Protein Negative Urine Glucose (UA) Trace H Urine Ketones Negative Urine Blood Negative Urine Nitrite Negative Urine Bilirubin Negative Urine Urobilinogen Negative Ur Leukocyte Esterase Trace H Urine WBC (Auto) 1-5 Urine RBC (Auto) 0-4 U Hyaline Cast (Auto) 0 U Epithel Cells (Auto) 0-5 Urine Bacteria (Auto) Negative 08/12/19 08/12/19 05:22 05:22 WBC 17.41 H RBC 3.07 L Hgb 9.4 L Hct 28.3 L MCV 92.2 MCH 30.6 MCHC 33.2 RDW Std Deviation 53.3 H RDW Coeff of Graham 15.9 H Plt Count 216 MPV 10.1 Immature Gran % (Auto) 0.2 Neut % (Auto) 87.3 Lymph % (Auto) 5.7 [place] % (Auto) 6.2 Eos % (Auto) 0.5 Baso % (Auto) 0.1 Immature Gran # (Auto) 0.04 H Neut # (Auto) 15.20 H Lymph # (Auto) 0.99 L [place] # (Auto) 1.08 H Eos # (Auto) 0.08 Baso # (Auto) 0.02 Sodium 140 Potassium 3.9 Chloride 107 Carbon Dioxide 25 Anion Gap 8.0 BUN 20 H Creatinine 1.32 Est Cr Clr Drug Dosing 45.3 Est GFR ( Amer) 58.2 Est GFR (Non-Af Amer) 50.2 BUN/Creatinine Ratio 15.1 Glucose 147 H Calcium 8.1 L Troponin I Urine Color Urine Appearance Urine pH Ur Specific [place] Urine Protein Urine Glucose (UA) Urine Ketones Urine Blood Urine Nitrite Urine Bilirubin Urine Urobilinogen Ur Leukocyte Esterase Urine WBC (Auto) Urine RBC (Auto) U Hyaline Cast (Auto) U Epithel Cells (Auto) Urine Bacteria (Auto) Diagnostic Findings XR chest 1V portable FINDINGS: The heart is at the upper limits of normal in size. There is no failure. There is no lobar consolidation. There is minor basilar atelectasis/scarring unchanged from the prior study. There are no significant pleural effusions.[ IMPRESSION: AP portable study. No acute findings. XR foot RT min 3V routine IMPRESSION: 1. Interval fifth metatarsal amputation. 2. Otherwise stable examination. KUB IMPRESSION: 1. Nonobstructed abdominal bowel gas pattern. 2. There is retained enteric contrast within numerous colonic diverticula. Medications Administered Current Inpatient Medications Acetaminophen (Tylenol) 650 mg PO Q4H PRN PRN Reason: Pain or Fever Stop: 09/10/19 11:59 Last Admin: 08/12/19 01:43 Dose: 650 mg Documented by: Allopurinol (Zyloprim) 100 mg PO [facility] Stop: 09/11/19 08:59 Last Admin: 08/12/19 08:16 Dose: 100 mg Documented by: Alprazolam (Xanax) 0.5 mg PO [facility] Stop: 09/11/19 08:59 Last Admin: 08/12/19 08:18 Dose: 0.5 mg Documented by: Alprazolam (Xanax) 1 mg PO QPM [facility] Stop: 09/10/19 20:59 Last Admin: 08/11/19 20:41 Dose: 1 mg Documented by: Aspirin (Ecotrin Ectab) 81 mg PO [facility] Stop: 09/10/19 20:59 Last Admin: 08/11/19 20:39 Dose: 81 mg Documented by: Bisacodyl (Dulcolax) 5 mg PO BID PRN PRN Reason: Constipation Stop: 09/11/19 02:40 Last Admin: 08/12/19 03:08 Dose: 5 mg Documented by: Finasteride (Proscar) 5 mg PO [facility] Stop: 09/10/19 20:59 Last Admin: 08/11/19 20:39 Dose: 5 mg Documented by: Heparin Sodium (Porcine) (Heparin Sodium (Porcine)) 5,000 units SQ Q8 [facility] Stop: 09/10/19 13:59 Last Admin: 08/12/19 05:08 Dose: 5,000 units Documented by: Cefepime HCl 2,000 mg/ Syringe 20 mls @ 5 mls/min IV Q24H [facility]; Protocol Stop: 08/13/19 15:59 Last Admin: 08/11/19 15:38 Dose: 5 mls/min Documented by: [facility]ivitamins ([facility]ivitamin Tab) [facility] Stop: 09/11/19 08:59 Last Admin: 08/12/19 08:16 Dose: 1 tab Documented by: Ondansetron HCl (Zofran) 4 mg IV Q6H PRN PRN Reason: Nausea Stop: 09/10/19 11:59 Last Admin: 08/11/19 20:11 Dose: 4 mg Documented by: Pantoprazole Sodium (Protonix) 40 mg PO BID [facility] Stop: 09/10/19 20:59 Last Admin: 08/12/19 08:16 Dose: 40 mg Documented by: Polyethylene Glycol (Miralax Powder Packet) 17 gm PO DAILY PRN PRN Reason: Constipation Stop: 09/11/19 02:40 Last Admin: 08/12/19 03:08 Dose: 17 gm Documented by: Rosuvastatin Calcium (Crestor) 5 mg PO [facility] Stop: 09/10/19 20:59 Last Admin: 08/11/19 20:39 Dose: 5 mg Documented by: Sucralfate (Carafate) 1 gm PO BID [facility] Stop: 09/10/19 20:59 Last Admin: 08/12/19 08:16 Dose: 1 gm Documented by: Terazosin HCl (Hytrin) 5 mg PO HS [facility] A Stop: 09/10/19 20:59 Last Admin: 08/11/19 20:39 Dose: 5 mg Documented by: Code Status & VTE Plan Code Status full code VTE Prophylaxis Plan VTE Prophylaxis will be ordered: Yes PG Care Time/CCT Total # of Minutes Spent Total Time Spent with Patient: Total time spent is greater than 50% in coordination of care (as documented) at patient's floor/unit and/or counseling patient:
[2019-08-11] MEDS: SUCRALFATE 1 GM/10 ML UDC PO SCH (20:39)
[2019-08-11] MEDS: PANTOprazole 40 MG TAB PO SCH (20:40)
[2019-08-11] MEDS ORDERED: CEFEPIME 1,000 MG in SYRINGE 0 ML IV SCH (21:00)
[2019-08-11] MEDS ORDERED: ALPRAZolam 0.5 MG TABLET PO SCH (21:00)
[2019-08-11] MEDS ORDERED: ROSUVASTATIN CALCIUM 5 MG TAB PO SCH (21:00)
[2019-08-11] MEDS ORDERED: FINASTERIDE 5 MG TAB PO SCH (21:00)
[2019-08-11] MEDS ORDERED: TERAZOSIN HCL 5 MG CAP PO SCH (21:00)
[2019-08-11] MEDS ORDERED: ASPIRIN 81 MG ECTAB PO SCH (21:00)
[2019-08-12] MEDS ORDERED: POLYETHYLENE (MIRALAX) 17 GM PACK PO PRN (02:41)
[2019-08-12] MEDS ORDERED: bisacodyL 5 MG TABEC PO PRN (02:41)
[2019-08-12] MEDS: HEPARIN SOD 5,000 UNIT/0.5 ML VIAL SQ SCH (05:08)
[2019-08-12 05:41] LABS: Appearance Urine Clear (Clear); Bacteria Urine Automated Negative (Negative); Bilirubin Urine Negative (Negative); Blood Urine Negative (Negative); Cast Urine Automated 0 /lpf (0-5); Color Urine Yellow; Epithelial Cell Urine Auto 0-5 /lpf (0-5); Glucose Urine UA Trace (Negative); Ketones Urine Negative (Negative); Leukocyte Esterase Urine Trace (Negative); Nitrite Urine Negative (Negative); Protein Urine Negative (Negative); RBC Urine Automated 0-4 /hpf (0-4); Specific Gravity Urine 1.012 (1.000-1.030); Urobilinogen Urine Negative (Negative)
[2019-08-12 05:43] LABS: Basophils # (auto) 0.02 K/uL (0-0.2); Basophils % (auto) 0.1 %; Eosinophils # (auto) 0.08 K/uL (0-0.5); Eosinophils % (auto) 0.5 %; Hematocrit (blood only) 28.3 % (42-52); Hemoglobin 9.4 g/dL (14.0-18.0); Immature Granulocytes # (auto) 0.04 K/uL (0.00-0.02); Immature Granulocytes % (auto) 0.2 %; Lymphocytes # (auto) 0.99 K/uL (1.2-3.4); Lymphocytes % (auto) 5.7 %; Mean Corpuscular Hemoglobin 30.6 pg (25-34); Mean Corpuscular Hgb Conc 33.2 g/dL (32-36); Mean Corpuscular Volume 92.2 fL (80-100); Mean Platelet Volume 10.1 fL (7.4-10.4); Monocytes # (auto) 1.08 K/uL (0.11-0.59); Monocytes % (auto) 6.2 %; Neutrophils % (auto) 87.3 %; Platelet Count 216 K/uL (130-400); RDW Coefficient of Variation 15.9 % (11.5-14.5); RDW Standard Deviation 53.3 fL (36.4-46.3); Red Blood Count 3.07 M/uL (4.7-6.1); White Blood Count 17.41 K/uL (4.8-10.8)
[2019-08-12 06:18] LABS: BUN Creatinine Ratio 15.1 (10-20); Calcium 8.1 mg/dl (8.5-10.1); Creatinine Clr Calc Pharmacy 45.3 ml/min; Est GFR (African American) 58.2; Est GFR (Non-African American) 50.2; Potassium 3.9 mmol/L (3.5-5.1)
[2019-08-12] MEDS: PANTOprazole 40 MG TAB PO SCH (08:16)
[2019-08-12] MEDS: SUCRALFATE 1 GM/10 ML UDC PO SCH (08:16)
[2019-08-12] MEDS ORDERED: ALPRAZolam 0.5 MG TABLET PO SCH (09:00)
[2019-08-12] MEDS ORDERED: MULTIVITAMIN TAB PO SCH (09:00)
[2019-08-12] MEDS ORDERED: allopurinoL 100 MG TAB PO SCH (09:00)
--- NOTE | 2019-08-12 21:57 | Discharge Summary ---
Date of Service August 12, 2019 Admission HPI Per Admitting Provider 79 yo male with recent history of right 5th toe amputation for osteomyelitis, occurred 5 days ago, presented to the ED in the morning for chest pain of several hours duration. He said he was feeling well after the amputation. No pain or swelling in the foot. He was breathing well, no chest pain, eating well. He was visiting his at [facility] on Sunday, two days prior to admission, and in the afternoon he developed rigors and chills and a fever and sweats. This lasted for several hours to his recollection. He took two Eccedrin tablets cause he didn't have any Tylenol and he said his symptoms resolved. While he had the rigors he also had some abdominal pain in the umbilical region, some nausea. He moved his bowels, they were formed to his recollection. He never vomited. He said he felt well on Sunday and had no issues most of the day. He visited his again at [place]. In the evening he started to have some mild chest pain that was similar to prior admission when he was found to have pill esophagitis. The pain persisted until he came to the ED and had Maalox which resolved the pain completely. On work up in the ED his WBC was up at 19k which was odd because it was never that high even with the osteomyelitis. His ESR was down to normal compared to prior values. His BMP showed Cr of 1.3, electrolytes stable, troponin negative. CXR was normal. UA showed no WBC. Blood cultures drawn in the ED. He was given Rocephin because he was already taking Keflex. Upon arrival to the floor he was feeling well, no chest pain, no abdominal pain, no nausea, no rigors or chills. Principal Diagnosis Atypical chest pain Discharge Exam Constitutional WD/WN, vitals as above Eyes PERRL, conjunctivae normal, anicteric sclerae ENMT external ear and nose normal, oropharynx normal Neck trachea midline, no thyromegaly Respiratory normal respiratory effort, lungs clear to auscultation Cardiovascular RRR, no murmur, no edema Gastrointestinal (Abdomen) normal bowel sounds, soft, nontender, no hepatosplenomegaly Musculoskeletal no cyanosis or clubbing, extremities motor strength 5/5 Skin no rashes, warm and dry Neurologic patellar DTR's 2+ bilat, sensation intact and PERRL, EOMI, accommodation nl, no face palsy, no dysarthria Psychiatric A+Ox3, euthymic affect Lymphatic no cervical or axillary lymphadenopathy Discharge Data Allergies Allergy/AdvReac Type Severity Reaction Status Date / Time Sulfa (Sulfonamide Allergy Severe RASH, Verified 08/11/19 06:30 Antibiotics) HIVES, SWOLLEN MOUTH, THROAT SWELLING Penicillins Allergy Mild RASH, HIVES Verified 08/11/19 06:30 Consultations 08/11/19 08:54 ED Decision to Admit Stat Hospital Course (1) Rigors: one episode 24 hours prior to admission unclear etiology, no signs of pneumonia, UTI, abdomen benign and foot s/p 5th toe amputation is clean no true fever while admitted no further rigors WBC down slightly to 17k likely a viral illness that resolved (2) Atypical chest pain: likely esophageal pain since symptoms resolved with Maalox had pill esophagitis last admission continue Protonix BID and Carafate cycle troponin x 3 sets: all negative (3) Weakness: will offer supportive care have him ambulate prior to discharge to make sure he is strong enough no issues the day of discharge, feeling well (4) Osteomyelitis of left foot: prior 5th toe amputation surgical site clean, no erythema, no pain follow up with Dr. Turner next week, continue on Keflex (5) Leukocytosis: unclear etiology no clear signs of infection could be due to a viral infection given the rigors and chills down to 17k on discharge placed on Cefepime empirically while admitted but can resume Keflex on discharge given no clear source of bacterial infection blood cultures no growth Total Time Total Time Spent Total Time Spent (In Minutes): 25 minutes Total Time Includes: Examination of the Patient, Discharge Planning and Medication Reconciliation Discharge Plan Discharge Items Patient Disposition: Home - Self-Care Reason For Visit: FEVER, CHEST PAIN Discharge Diagnosis: Leukocytosis Atypical chest pain, due to esophagitis Likely viral illness Condition on Discharge: Good Health Concerns: continue taking Keflex for prior osteomyelitis until you see Dr. Turner Goals: control chest pain with Carafate or Maalox improve mobility and strength follow up with Dr. Turner Activity: Resume your previous activity Non-emergency contact: Primary Care Provider and Surgeon Call non-emergency contact if: you have any medication questions, your symptoms worsen, your pain is not controlled and you have a fever Follow-up/Referrals: Ryan Junior Jr, DO [Primary Care Provider] - Diet: Heart Healthy Addtl Attending Provider Instructions: Medications: no changes Most likely etiology of fever, rigors (shakes), nausea and weakness was an acute viral illness there is no clear source of bacterial infection on work up here at the hospital chest x-ray without pneumonia, no obstruction on abdominal x-ray, urinalysis is clean no growth on blood cultures at this time White blood cell count was up at 19 and down to 17 today, can go up with viral illness will d/c to home on Keflex three times a day, continue to take until seen by Dr. Turner Chest pain, due to esophagitis pain was relieved by Maalox in the emergency room no changes on EKG, troponin (heart enzyme) normal for three checks continue to use Protonix and Carafate, can use Maalox or Tums as needed for any chest pain esophagitis should resolve completely in next 1-2 weeks FOLLOW UP - Dr. Turner next week as scheduled - no need to follow up with Dr. Junior at this time unless you experience further symptoms with fever and shakes, then I would make an appointment Pending Studies at Discharge: Yes Studies:: blood cultures, no growth at this time Stand-Alone Forms: My [facility] Medications and DC Order Prescriptions: Continued alprazolam [Xanax] 0.5 mg tablet 0.5 mg PO QAM RF: 0 finasteride [Proscar] 5 mg tablet 5 mg PO HS RF: 0 terazosin 5 mg capsule 5 mg PO HS RF: 0 tramadol 50 mg Tablet 50 - 100 mg PO Q6H PRN (Reason: Pain) RF: 0 multivitamin Tablet 1 tab PO QAM RF: 0 ranitidine HCl 300 mg tablet 300 mg PO HS RF: 0 allopurinol 100 mg tablet 100 mg PO QAM RF: 0 aspirin 81 mg Tablet,Delayed Release (Dr/Ec) 81 mg PO HS RF: 0 diclofenac sodium 75 mg tablet,delayed release (DR/EC) 75 mg PO BID RF: 0 rosuvastatin 5 mg tablet 5 mg PO HS RF: 0 sucralfate 100 mg/mL Suspension 10 ml PO BID Qty: 420 RF: 0 pantoprazole 40 mg Tablet,Delayed Release (Dr/Ec) 40 mg PO BID Qty: 60 RF: 0 alprazolam 0.5 mg Tablet 1 mg PO QPM RF: 0 cephalexin [Keflex] 500 mg capsule 500 mg PO TID 14 Days Qty: 42 RF: 0 Discontinued omeprazole 40 mg Capsule,Delayed Release(Dr/Ec) 40 mg PO DAILY RF: 0 Discharge Orders: Discharge Order (Routine); Ordered 08/12/19 Ordered By: Juan Carlos Givens Admission Data Admit Date/Time: 08/11/19 09:36 Attending Provider: Juan Carlos Givens Admit Provider: Juan Carlos Givens Primary Care Provider: Ryan Junior Jr Other Providers: Juan Carlos Givens Other Interventions: Discharge Summary Assessment (RN) Last Done: 08/12/19 13:46 DC Date/Time DO NOT enter until pt leaves facility: 08/12/19 14:50
== END 2019-08-12 14:50 | disposition home or self-care (01) ==
LOC: ED 06:12 → 2N 06:12

== ENCOUNTER 2020-03-22 11:41 | Inpatient (IN) ==
[2020-03-22] MEDS ORDERED: ACETAMINOPHEN W/CODEINE #3 1 TAB PO ONE (12:25)
[2020-03-22] MEDS ORDERED: BENZONATATE 100 MG CAPSULE PO ONE (12:25)
[2020-03-22] MEDS ORDERED: COUGH DROP (SUGAR FREE) LOZ 24 LOZ/1 BOX BUCCAL STA (12:25)
--- NOTE | 2020-03-22 12:29 | Emergency Department Note ---
Impression & Plan Pneumonitis, Anemia, Leukocytosis, Cough ED Provider Note NAME: ERICH GALO AGE: 80 SEX: M : 1940 ARRIVES VIA: Ambulance INFORMANT: Patient, ED PROVIDER(S): Boy Kingston MD Chief Complaint: Cough, shortness of breath HPI: Patient does present with 2 weeks of symptoms. The patient does have some associated posttussive emesis which last occurred on Sunday. The patient does complain of chest pain with coughing. Patient has tried taking Robitussin and Mucinex without much relief. Coughing makes it worse. It is nonproductive in nature. No history of smoking or ever smoking. The patient was referred here from his primary care physician Dr. Junior due to concern for the possibility of a pneumonia. ROS: See HPI for pertinent positives and negatives. A total of 10 systems were reviewed and otherwise negative. Past medical history: See below Surgical history: See below Social history: See below Physical Exam: GENERAL: Well appearing, well nourished, NAD, non-toxic. Wearing a mask. EYE EXAM: Normal conjunctiva. PERRL, no anisocoria and EOM's grossly intact w/o pain. NECK: Supple, no nuchal rigidity, no adenopathy, non-tender. No signs of meningismus. LUNGS: Clear to auscultation. Normal chest wall mechanics. HEART: NSR, no MRG. ABDOMEN: Abdomen soft, non-tender, normo-active bowel sounds, no masses, no rebound or guarding. BACK: No CVA TTP. SKIN: No rashes and no bruising. UPPER EXTREMITIES: Upper extremities are grossly normal. LOWER EXTREMITIES: Grossly normal, 1+ right lower extremity edema and trace tibial edema left lower extremity edema. Negative Homans sign bilaterally without any redness or cellulitic change. NEURO EXAM: A&O x3, cranial nerves II-XII grossly intact, normal speech, moves all 4 extremities on command w/o issue. Differential diagnoses: Reactive airway disease, pneumonia, pneumothorax, COPD, CHF, infections, cardiac ischemia, pulmonary embolism, musculoskeletal, gastrointestinal, as well as other pathologies. Course: Patient was seen and evaluated the bedside. A full history and physical exam was performed. EKG: Indication: Shortness of breath Normal sinus rhythm, rate of 73, normal intervals, normal axis, no ST changes or T WI. PVCs not present compared to prior August 11, 2019. Imaging Studies: Radiology results as stated below per my review in the radiologist's interpretation: SINGLE VIEW CHEST CLINICAL HISTORY: Dyspnea. FINDINGS: An AP, portable, upright chest radiograph is compared to study dated 07/30/2019. The examination is degraded by portable technique, apical lordotic positioning, and patient rotation. The heart is enlarged noting atherosclerotic calcification of the thoracic aorta. The pulmonary vasculature is noncongested. Chronic interstitial thickening is similar to previous. There are subpleural opacities identified at both lung bases, right greater than left. No large pleural effusion is identified. No pneumothorax is seen. The skeletal structures are osteopenic. The bony thorax is grossly intact. IMPRESSION: 1. Cardiomegaly without radiographic evidence of congestive failure. 2. There are subpleural patchy opacities identified at both lung bases, right greater than left. Correlate clinically for evidence of an infectious/inflammatory pneumonitis. Radiographic follow-up to resolution is recommended. ACT 112: Negative or not required by law. Electronically signed by: Niraj Almeida M.D. 03/22/2020 1:03 PM Dictated: 03/22/20 1301 Transcribed: 03/22/20 1301 Cardiac monitoring: An order was placed for continuous cardiac monitoring. The monitor shows a rate of 73 with sinus rhythm. MDM: Patient was seen due to concern for persistent cough and shortness of breath. Nonproductive in nature. Patient does not present with fevers, chills, coronavirus contacts, coronavirus testing, or recent travel. Blood work does show white count of 17 which may be chronic as it has been this high in the past. She does have a left shift. Kidney function is unremarkable. Very mild hypocalcemia. This x-ray shows possible infectious versus inflammatory pneumonitis with mild cardiomegaly without overt pulmonary edema. Mild coronavirus may be a possibility in this patient given his lack of other risk factors the patient may have evidence of possible pneumonia. Patient does have a curb 65 score of 3 given his age diastolic less than 61 point with associated elevated BUN greater than 19. This is severe risk group. I did speak the hospitalist agreed to further evaluate treat the patient. Patient was subsequently admitted to the medicine service. The medicine team was to discuss coronavirus testing as well as antibiotics given the patient's persistent cough symptoms. I did speak with Juan Carlos Givens [facility] hospitalist service. Patient was admitted to the medicine service. 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 07/31/19 [place] Schatzki's ring Surgical History (Updated 02/17/20 @ 13:28 by MENA KilgoreC) H/O foot surgery (Resolved) 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 TOE - 08/06/19 [facility] [place] History of bilateral knee replacement (Resolved) History of cardiac cath in 1960s--no stents History of colonoscopy History of esophagogastroduodenoscopy (EGD) with dilation History of tonsillectomy and adenoidectomy History of wisdom tooth extraction S/P dilatation of esophageal stricture Family History (Updated 02/17/20 @ 13:33 by Faye Croft PA-C) Father Family history of diabetes mellitus Coronary heart disease Prostate cancer Uncle Coronary heart disease Other No family history of adverse response to anesthesia Social History Preferred Language: Jordanian Communication Ability: Effective Visual Impairment: No Limitations Hearing Ability: Normal Leather Sorter Required: No Beliefs That Will Affect Care: None marital status: Current Living Situation: Spouse current occupational status: retired Feels Safe at Home: Yes Smoking Status: Never smoker Tobacco Type: smokeless tobacco ; Second Hand Exposure: No ; Hx Alcohol Use: No Hx Substance Use: No Allergies Allergies Allergy/AdvReac Type Severity Reaction Status Date / Time Sulfa (Sulfonamide Allergy Severe RASH, Verified 03/22/20 13:40 Antibiotics) HIVES, SWOLLEN MOUTH, THROAT SWELLING Penicillins Allergy Mild RASH, HIVES Verified 03/22/20 13:40 lisinopril Allergy Unknown lethargic Verified 03/22/20 13:40 Home Meds Home Medications Medication Instructions Recorded Confirmed alprazolam 0.5 mg tablet 0.5 mg PO QAM 07/10/19 03/22/20 finasteride 5 mg tablet 5 mg PO HS tab 07/10/19 03/22/20 allopurinol 100 mg PO QAM 07/30/19 03/22/20 aspirin 81 mg PO HS 07/30/19 03/22/20 rosuvastatin 5 mg PO HS 07/30/19 03/22/20 alprazolam 1 mg PO QPM 08/04/19 03/22/20 terazosin 5 mg capsule 5 mg PO DAILY 01/15/20 03/22/20 Previous Rx's Medication Instructions Recorded pantoprazole 20 mg PO DAILY 360 Days #90 tab 11/13/19 losartan 25 mg tablet 25 mg PO DAILY #30 tab 01/15/20 metoprolol succinate 50 mg 50 mg PO DAILY #30 tab 02/25/20 tablet,extended release 24 hr Results & Data (ED) Vital Signs Vital Signs - 24 hr 03/22/20 11:58 03/22/20 12:55 03/22/20 13:00 Temperature 37.3 C Temperature Source Oral Pulse Rate 71 73 Pulse Rate [Apical] 76 Pulse Rate from SpO2 Sensor 72 Pulse Rhythm [Apical] Regular Respiratory Rate 20 19 17 Respiratory Effort / Characteristics Non-Labored Spontaneous Spontaneous Respiratory Depth Normal Respiratory Pattern Regular Blood Pressure 113/77 113/53 L Blood Pressure [Right Arm] 91/54 L Blood Pressure Mean 89 93 Blood Pressure Mean [Right Arm] 66 Blood Pressure Position Sitting Pulse Oximetry 95 95 92 Oxygen Delivery Method Room Air Room Air Sepsis Recent Fever Within 48 Hours No Sepsis New/Unexplained Change in Mental Status No Sepsis Action Taken by Nursing No Action Required 03/22/20 13:30 03/22/20 14:00 03/22/20 14:30 Temperature Temperature Source Pulse Rate 67 58 L 59 L Pulse Rate [Apical] 61 Pulse Rate from SpO2 Sensor 58 L 63 62 Pulse Rhythm [Apical] Regular Respiratory Rate 18 20 19 Respiratory Effort / Characteristics Non-Labored Spontaneous Respiratory Depth Normal Respiratory Pattern Regular Blood Pressure 109/57 L 110/63 113/80 Blood Pressure [Right Arm] 113/80 Blood Pressure Mean 80 84 84 Blood Pressure Mean [Right Arm] 91 Blood Pressure Position Pulse Oximetry 91 94 91 Oxygen Delivery Method Room Air Sepsis Recent Fever Within 48 Hours Sepsis New/Unexplained Change in Mental Status Sepsis Action Taken by Nursing 03/22/20 15:02 03/22/20 15:30 Temperature Temperature Source Pulse Rate 58 L 59 L Pulse Rate [Apical] Pulse Rate from SpO2 Sensor 68 63 Pulse Rhythm [Apical] Respiratory Rate 21 18 Respiratory Effort / Characteristics Respiratory Depth Respiratory Pattern Blood Pressure 147/71 H 163/70 H Blood Pressure [Right Arm] Blood Pressure Mean 126 95 Blood Pressure Mean [Right Arm] Blood Pressure Position Pulse Oximetry 94 92 Oxygen Delivery Method Sepsis Recent Fever Within 48 Hours Sepsis New/Unexplained Change in Mental Status Sepsis Action Taken by Nursing Laboratory Data Result diagrams: 03/22/20 12:44 03/22/20 12:44 Lab Results 03/22/20 03/22/20 03/22/20 Range/Units 12:44 12:44 12:44 WBC 17.09 H (4.8-10.8) K/uL RBC 2.96 L (4.7-6.1) M/uL Hgb 9.1 L (14.0-18.0) g/dL Hct 27.8 L (42-52) % MCV 93.9 (80-100) fL MCH 30.7 (25-34) pg MCHC 32.7 (32-36) g/dL RDW Std Deviation 49.4 H (36.4-46.3) fL RDW Coeff of Graham 14.5 (11.5-14.5) % Plt Count 380 (130-400) K/uL MPV 9.4 (7.4-10.4) fL Immature Gran % (Auto) 0.5 % Neut % (Auto) 81.7 % Lymph % (Auto) 8.0 % Bacon % (Auto) 7.1 % Eos % (Auto) 2.3 % Baso % (Auto) 0.4 % Immature Gran # (Auto) 0.09 H (0.00-0.02) K/uL Neut # (Auto) 13.95 H (1.4-6.5) K/uL Lymph # (Auto) 1.37 (1.2-3.4) K/uL Bacon # (Auto) 1.21 H (0.11-0.59) K/uL Eos # (Auto) 0.40 (0-0.5) K/uL Baso # (Auto) 0.07 (0-0.2) K/uL PT 11.8 (9.0-12.0) Seconds INR 1.1 (0.9-1.1) APTT 31.5 H (21.0-31.0) Seconds PTT Ratio 1.1 Sodium 137 (136-145) mmol/L Potassium 4.2 (3.5-5.1) mmol/L Chloride 106 (98-107) mmol/L Carbon Dioxide 25 (21-32) mmol/L Anion Gap 6.0 (3-11) BUN 20 H (7-18) mg/dl Creatinine 1.13 (0.6-1.4) mg/dl Est Cr Clr Drug Dosing 53.3 ml/min Est GFR ( Amer) 69.8 Est GFR (Non-Af Amer) 60.2 BUN/Creatinine Ratio 18.0 (10-20) Glucose 139 H (70-99) mg/dl Calcium 8.4 L (8.5-10.1) mg/dl Magnesium 2.1 (1.8-2.4) mg/dl Total Bilirubin 0.3 (0.2-1) mg/dl AST 11 L (15-37) U/L ALT 14 (12-78) U/L Alkaline Phosphatase 89 (45-117) U/L Troponin I < 0.015 (0-0.045) ng/ml Total Protein 6.4 (6.4-8.2) gm/dl Albumin 2.7 L (3.4-5.0) gm/dl Globulin 3.7 (2.5-4.0) gm/dl Albumin/Globulin Ratio 0.7 L (0.9-2) Administered Medications Discontinued Medications Acetaminophen/Codeine Phosphate (Tylenol W/Codeine #3) 1 tab PO NOW ONE Stop: 03/22/20 12:26 Last Admin: 03/22/20 12:47 Dose: 1 tab Documented by: [id number] Benzonatate (Tessalon Perle) 100 mg PO NOW ONE Stop: 03/22/20 12:26 Last Admin: 03/22/20 12:47 Dose: 100 mg Documented by: [id number] Menthol (Syed) 1 josé miguel BUCCAL NOW STA Stop: 03/22/20 12:26 Last Admin: 03/22/20 12:47 Dose: 1 josé miguel Documented by: [id number] Discharge Plan Visit Data Chief Complaint: Cardiac Assessment Stated Complaint: COUGH,SOB ED Provider: Boy Kingston Discharge Problem: Pneumonitis, Anemia, Leukocytosis, Cough Discharge Instructions Interventions: ED Discharge Assessment Last Done: 03/22/20 17:15 Discharge Problem: Anemia Qualifiers: Anemia type: unspecified type Qualified Code(s): D64.9 - Anemia, unspecified Leukocytosis Qualifiers: Leukocytosis type: bandemia Qualified Code(s): D72.825 - Bandemia
--- NOTE | 2020-03-22 13:04 | XRay Report ---
SINGLE VIEW CHEST CLINICAL HISTORY: Dyspnea. FINDINGS: An AP, portable, upright chest radiograph is compared to study dated 07/30/2019. The examina tion is degraded by portable technique, apical lordotic positioning, and patient rotation. The heart is enlarged noting atherosclerotic calcification of the thoracic aorta. The pulmonary vasculature is noncongested. Chronic interstitial thickening is similar to previous. There are subpleural opacities identified at both lung bases, right greater than left. No large pleural effusion is identified. No p neumothorax is seen. The skeletal structures are osteopenic. The bony thorax is grossly intact. IMPRESSION: 1. Cardiomegaly without radiographic evidence of congestive failure. 2. There are subpleural patchy opacities identified at both lung bases, right greater than left. Lizbeth elate clinically for evidence of an infectious/inflammatory pneumonitis. Radiographic follow-up to re solution is recommended. ACT 112: Negative or not required by law. Electronically signed by: Niraj Almeida M.D. 03/22/2020 1:03 PM
[2020-03-22 13:05] LABS: Basophils # (auto) 0.07 K/uL (0-0.2); Basophils % (auto) 0.4 %; Eosinophils % (auto) 2.3 %; Hematocrit (blood only) 27.8 % (42-52); Hemoglobin 9.1 g/dL (14.0-18.0); Immature Granulocytes # (auto) 0.09 K/uL (0.00-0.02); Immature Granulocytes % (auto) 0.5 %; Lymphocytes # (auto) 1.37 K/uL (1.2-3.4); Mean Corpuscular Hemoglobin 30.7 pg (25-34); Mean Corpuscular Hgb Conc 32.7 g/dL (32-36); Mean Corpuscular Volume 93.9 fL (80-100); Mean Platelet Volume 9.4 fL (7.4-10.4); Monocytes # (auto) 1.21 K/uL (0.11-0.59); Monocytes % (auto) 7.1 %; Neutrophils # (auto) 13.95 K/uL (1.4-6.5); Neutrophils % (auto) 81.7 %; Platelet Count 380 K/uL (130-400); RDW Coefficient of Variation 14.5 % (11.5-14.5); RDW Standard Deviation 49.4 fL (36.4-46.3); Red Blood Count 2.96 M/uL (4.7-6.1); White Blood Count 17.09 K/uL (4.8-10.8)
[2020-03-22 13:19] LABS: INR 1.1 (0.9-1.1); Partial Thromboplastin Ratio 1.1; Partial Thromboplastin Time 31.5 Seconds (21.0-31.0); Prothrombin Time 11.8 Seconds (9.0-12.0)
[2020-03-22 13:21] LABS: Alanine Aminotransferase 14 U/L (12-78); Albumin Level 2.7 gm/dl (3.4-5.0); Aspartate Aminotransferase 11 U/L (15-37); Blood Urea Nitrogen 20 mg/dl (7-18); Calcium 8.4 mg/dl (8.5-10.1); Carbon Dioxide 25 mmol/L (21-32); Chloride 106 mmol/L (98-107); Creatinine Clr Calc Pharmacy 53.3 ml/min; Est GFR (African American) 69.8; Est GFR (Non-African American) 60.2; Glucose 139 mg/dl (70-99); Magnesium 2.1 mg/dl (1.8-2.4); Potassium 4.2 mmol/L (3.5-5.1); Sodium 137 mmol/L (136-145)
[2020-03-22 13:30] LABS: Albumin Globulin Ratio 0.7 (0.9-2); Alkaline Phosphatase 89 U/L (45-117); Bilirubin,Total 0.3 mg/dl (0.2-1); Globulin 3.7 gm/dl (2.5-4.0); Total Protein 6.4 gm/dl (6.4-8.2); Troponin I < 0.015 ng/ml (0-0.045)
--- NOTE | 2020-03-22 17:37 | History & Physical Report ---
Date of Service March 22, 2020 Assessment & Plan (1) Atypical pneumonia: sick for 2 weeks, main symptom is a cough that will not subside, keeps him up he has not had any fever, his is not sick he has NOT left his house at all due to COVID 19, his son drops off groceries for he and his low to zero risk for COVID 19, will not test treat with Solu Medrol 40mg q12, first dose now at 60mg IV Rocephin and Zithromax nebulizers PRN Robitussin for cough CXR with bibasilar infiltrates, WBC is 17k with left shift of PMN, no lymphopenia this supports a bacterial infection (2) Cough: (3) Hypertension: continue home regimen of losartan, metoprolol (4) Cardiomyopathy: losartan, metoprolol (5) GERD (gastroesophageal reflux disease): PPI Admission and Anticipated Discharge Date Admission Date: March 22, 2020 History of Present Illness Chief Complaint: I can't stop coughing Primary Care Provider: Ryan Junior Jr, DO 80 yo male who comes to the ED from home with complaints of a cough, dyspnea that has been ongoing for 2 weeks. He denies any sick contacts, his who lives with him is not sick. He has not left his home for several weeks due to COVID 19 and his son drops off groceries. To his knowledge, he has NOT come into contact with anyone who has COVID 19. He says that the main symptom is a cough that is non-productive. He has been coughing so much that it hurts his abdomen, shoulders, back. The cough is non-productive. He has not had any fevers but he does admit to some chills and night sweats, he was noted to be afebrile in the ED. He has had a decreased appetite. He has been pushing fluids, drinking a lot of water. He has been having a difficult time sleeping because of the cough. He has tried Mucinex but it did not help at all. He tried some Robitussin OTC, that did not help either. He has not seen his PCP due to quarantine, social distancing. In the ED his vitals were stable. CXR with possible infectious process. WBC was up at 17k with left shift, predominantly PMN, no lymphopenia. Allergies Allergy/AdvReac Type Severity Reaction Status Date / Time Sulfa (Sulfonamide Allergy Severe RASH, Verified 03/22/20 13:40 Antibiotics) HIVES, SWOLLEN MOUTH, THROAT SWELLING Penicillins Allergy Mild RASH, HIVES Verified 03/22/20 13:40 lisinopril Allergy Unknown lethargic Verified 03/22/20 13:40 Home Medications Home Medications Medication Instructions Recorded Confirmed Type alprazolam 0.5 mg tablet 0.5 mg PO QAM 07/10/19 03/22/20 History finasteride 5 mg tablet 5 mg PO HS tab 07/10/19 03/22/20 History allopurinol 100 mg PO QAM 07/30/19 03/22/20 History aspirin 81 mg PO HS 07/30/19 03/22/20 History rosuvastatin 5 mg PO HS 07/30/19 03/22/20 History alprazolam 1 mg PO QPM 08/04/19 03/22/20 History pantoprazole 20 mg PO DAILY 360 Days #90 tab 11/13/19 03/22/20 Rx losartan 25 mg tablet 25 mg PO DAILY #30 tab 01/15/20 03/22/20 Rx terazosin 5 mg capsule 5 mg PO DAILY 01/15/20 03/22/20 History metoprolol succinate 50 mg 50 mg PO DAILY #30 tab 02/25/20 03/22/20 Rx tablet,extended release 24 hr Past Med/Surg History Medical History (Updated 03/22/20 @ 18:30 by Juan Carlos Givens DO) Accelerated idioventricular rhythm Anemia Anxiety Arthritis (Chronic) Benign prostatic hyperplasia Cardiomyopathy dx 07/2019 Esophageal ulcer Essential hypertension Frequent PVCs GERD (gastroesophageal reflux disease) (Chronic) Gout (Chronic) History of colon polyps Hyperlipidemia (Chronic) Mitral regurgitation Osteoarthritis Osteomyelitis of left foot 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 07/31/19 [place] Schatzki's ring Surgical History (Updated 02/17/20 @ 13:28 by Faye Croft PA-C) H/O foot surgery (Resolved) 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 TOE - 08/06/19 [facility] [place] History of bilateral knee replacement (Resolved) History of cardiac cath in 1960s--no stents History of colonoscopy History of esophagogastroduodenoscopy (EGD) with dilation History of tonsillectomy and adenoidectomy History of wisdom tooth extraction S/P dilatation of esophageal stricture Family History (Updated 02/17/20 @ 13:33 by Faye Croft PA-C) Father Family history of diabetes mellitus Coronary heart disease Prostate cancer Uncle Coronary heart disease Other No family history of adverse response to anesthesia Social History Preferred Language: British Communication Ability: Effective Visual Impairment: No Limitations Hearing Ability: Normal Manager Wealth Management Required: No Beliefs That Will Affect Care: None marital status: Current Living Situation: Spouse current occupational status: retired Other Information That Helps Us Care for You: No Feels Safe at Home: Yes Safety Concerns: Feels Safe At This Time Smoking Status: Never smoker Tobacco Type: smokeless tobacco ; Do You Dip or Chew Tobacco: No ; Second Hand Exposure: No ; Tobacco Cessation Education Requested by Patient: No Hx Alcohol Use: No Hx Substance Use: No Review of Systems Review of Systems: All systems reviewed & are unremarkable except as noted in HPI & below Constitutional: + chills, + sweats, + fatigue and + weakness; no fever Respiratory: + cough, + chest congestion, + dyspnea on exertion, + pain with cough and + wheezing; no dyspnea and no sputum production Cardiovascular: + chest pain (with cough) and + dyspnea on exertion; no edema Gastrointestinal: + early satiety; no abdominal pain, no nausea, no vomiting, no constipation and no diarrhea/loose stools Physical Exam Constitutional: WD/WN, vitals as above Eyes: PERRL, conjunctivae normal, anicteric sclerae ENMT: external ear and nose normal, oropharynx normal Neck: trachea midline, no thyromegaly Respiratory: normal respiratory effort and + cough; no respiratory distress and no labored breathing Auscultation: + wheezes (expiratory, bilaterally); no crackles, no rales and no rhonchi Cardiovascular: RRR, no murmur, no edema Gastrointestinal (Abdomen): normal bowel sounds, soft, nontender, no hepatosplenomegaly Musculoskeletal: no cyanosis or clubbing, extremities motor strength 5/5 Skin: no rashes, warm and dry Neurologic: patellar DTR's 2+ bilat, sensation intact and PERRL, EOMI, accommodation nl, no face palsy, no dysarthria Psychiatric: A+Ox3, euthymic affect Lymphatic: no cervical or axillary lymphadenopathy Results & Data Results & Data ([facility]) Vital Signs (Past 12 Hours) Vital Signs Temp Pulse Pulse Resp BP BP Pulse Ox 03/22/20 17:00 77 20 122/61 93 03/22/20 16:31 62 21 134/54 L 83 L 03/22/20 16:01 49 L 17 141/66 H 93 03/22/20 15:30 59 L 18 163/70 H 92 03/22/20 15:02 58 L 21 147/71 H 94 03/22/20 14:30 59 L 61 19 113/80 113/80 91 03/22/20 14:00 58 L 20 110/63 94 03/22/20 13:30 67 18 109/57 L 91 03/22/20 13:00 73 17 113/53 L 92 03/22/20 12:55 76 19 91/54 L 95 03/22/20 11:58 37.3 C 71 20 113/77 95 Laboratory Results Laboratory Results - last 24 hr 03/22/20 03/22/20 03/22/20 12:44 12:44 12:44 WBC 17.09 H RBC 2.96 L Hgb 9.1 L Hct 27.8 L MCV 93.9 MCH 30.7 MCHC 32.7 RDW Std Deviation 49.4 H RDW Coeff of Graham 14.5 Plt Count 380 MPV 9.4 Immature Gran % (Auto) 0.5 Neut % (Auto) 81.7 Lymph % (Auto) 8.0 [place] % (Auto) 7.1 Eos % (Auto) 2.3 Baso % (Auto) 0.4 Immature Gran # (Auto) 0.09 H Neut # (Auto) 13.95 H Lymph # (Auto) 1.37 [place] # (Auto) 1.21 H Eos # (Auto) 0.40 Baso # (Auto) 0.07 PT 11.8 INR 1.1 APTT 31.5 H PTT Ratio 1.1 Sodium 137 Potassium 4.2 Chloride 106 Carbon Dioxide 25 Anion Gap 6.0 BUN 20 H Creatinine 1.13 Est Cr Clr Drug Dosing 53.3 Est GFR ( Amer) 69.8 Est GFR (Non-Af Amer) 60.2 BUN/Creatinine Ratio 18.0 Glucose 139 H Calcium 8.4 L Magnesium 2.1 Total Bilirubin 0.3 AST 11 L ALT 14 Alkaline Phosphatase 89 Troponin I < 0.015 Total Protein 6.4 Albumin 2.7 L Globulin 3.7 Albumin/Globulin Ratio 0.7 L Diagnostic Findings SINGLE VIEW CHEST CLINICAL HISTORY: Dyspnea. FINDINGS: An AP, portable, upright chest radiograph is compared to study dated 07/30/2019. The examination is degraded by portable technique, apical lordotic positioning, and patient rotation. The heart is enlarged noting atherosclerotic calcification of the thoracic aorta. The pulmonary vasculature is noncongested. Chronic interstitial thickening is similar to previous. There are subpleural opacities identified at both lung bases, right greater than left. No large pleural effusion is identified. No pneumothorax is seen. The skeletal structures are osteopenic. The bony thorax is grossly intact. IMPRESSION: 1. Cardiomegaly without radiographic evidence of congestive failure. 2. There are subpleural patchy opacities identified at both lung bases, right greater than left. Correlate clinically for evidence of an infectious/inflammatory pneumonitis. Radiographic follow-up to resolution is recommended. Code Status & VTE Plan VTE Prophylaxis Plan VTE Prophylaxis will be ordered: Yes PG Care Time/CCT Total # of Minutes Spent Total Time Spent with Patient: Total time spent is greater than 50% in coor dination of care (as documented) at patient's floor/unit and/or counseling patient: Coding Level of Care Code 52894 Initial Inpt Care Lvl 3 Diagnoses Atypical pneumonia J18.9 Cough R05 Hypertension I10 Cardiomyopathy I42.9 GERD (gastroesophageal reflux disease) K21.9
[2020-03-22] MEDS ORDERED: ONDANSETRON INJ 2 MG/ML 2 ML VIAL IV PRN (17:56)
[2020-03-22] MEDS ORDERED: ACETAMINOPHEN 325 MG TAB PO PRN (17:56)
[2020-03-22] MEDS ORDERED: ALBUT/IPRATROP 3MG/0.5MG NEB 3 ML VIAL NEB PRN (18:19)
[2020-03-22] MEDS ORDERED: GUAIFENESIN/CODEINE 200MG/20MG 10ML UDC PO PRN (18:19)
[2020-03-22] MEDS ORDERED: methylPREDNISolone 60 MG in SYRINGE 0 ML IV STA (18:31)
[2020-03-22] MEDS ORDERED: AZITHROMYCIN 250 MG TAB PO ONE (18:45)
[2020-03-22] MEDS: cefTRIAXone SODIUM 2,000 MG in DEXTROSE 5% 50 ML IV SCH (19:42)
[2020-03-22] MEDS ORDERED: ENOXAPARIN INJ 40 MG/0.4 ML SYR SQ SCH (20:00)
[2020-03-22] MEDS ORDERED: ALPRAZolam 0.5 MG TABLET PO SCH (21:00)
[2020-03-22] MEDS ORDERED: FINASTERIDE 5 MG TAB PO SCH (21:00)
[2020-03-22] MEDS ORDERED: ASPIRIN 81 MG ECTAB PO SCH (21:00)
[2020-03-22] MEDS ORDERED: ROSUVASTATIN CALCIUM 5 MG TAB PO SCH (21:00)
--- NOTE | 2020-03-22 22:42 | Electrocardiogram Report ---
Test Reason : Blood Pressure : / mmHG Vent. Rate : 073 BPM Atrial Rate : 073 BPM P-R Int : 170 ms QRS Dur : 114 ms QT Int : 414 ms P-R-T Axes : 075 -12 043 degrees QTc Int : 456 ms Poor data quality, interpretation may be adversely affected Normal sinus rhythm Normal ECG When compared with ECG of 11-AUG-2019 06:13, Premature ventricular complexes are no longer Present Confirmed by Severo South ([id number]) on 03/22/2020 10:42:33 PM Referred By: REFERRED SELF Confirmed By:Severo South
[2020-03-23 06:54] LABS: Basophils # (auto) 0.02 K/uL (0-0.2); Basophils % (auto) 0.1 %; Hematocrit (blood only) 30.8 % (42-52); Hemoglobin 10.1 g/dL (14.0-18.0); Immature Granulocytes # (auto) 0.09 K/uL (0.00-0.02); Immature Granulocytes % (auto) 0.7 %; Lymphocytes # (auto) 0.83 K/uL (1.2-3.4); Mean Corpuscular Hemoglobin 30.9 pg (25-34); Mean Corpuscular Hgb Conc 32.8 g/dL (32-36); Mean Corpuscular Volume 94.2 fL (80-100); Mean Platelet Volume 9.2 fL (7.4-10.4); Monocytes # (auto) 0.23 K/uL (0.11-0.59); Monocytes % (auto) 1.7 %; Neutrophils % (auto) 91.5 %; Platelet Count 433 K/uL (130-400); RDW Coefficient of Variation 14.1 % (11.5-14.5); RDW Standard Deviation 48.6 fL (36.4-46.3); Red Blood Count 3.27 M/uL (4.7-6.1); White Blood Count 13.77 K/uL (4.8-10.8)
[2020-03-23 07:22] LABS: BUN Creatinine Ratio 20.4 (10-20); Calcium 8.6 mg/dl (8.5-10.1); Creatinine Clr Calc Pharmacy 62.8 ml/min; Est GFR (Non-African American) 73.3
[2020-03-23] MEDS ORDERED: METOPROLOL SUCC 50MG EXT REL TAB PO SCH (09:00)
[2020-03-23] MEDS ORDERED: allopurinoL 100 MG TAB PO SCH (09:00)
[2020-03-23] MEDS ORDERED: PANTOprazole 40 MG TAB PO SCH (09:00)
[2020-03-23] MEDS ORDERED: methylPREDNISolone 40 MG in SYRINGE 0 ML IV SCH (09:00)
[2020-03-23] MEDS ORDERED: ALPRAZolam 0.5 MG TABLET PO SCH (09:00)
[2020-03-23] MEDS ORDERED: TERAZOSIN HCL 5 MG CAP PO SCH (09:00)
[2020-03-23] MEDS ORDERED: LOSARTAN POTASSIUM 25 MG TAB PO SCH (09:00)
[2020-03-23] MEDS ORDERED: BENZONATATE 100 MG CAPSULE PO ONE (09:35)
[2020-03-23] MEDS: cefTRIAXone SODIUM 2,000 MG in DEXTROSE 5% 50 ML IV SCH (11:47)
[2020-03-23] MEDS ORDERED: BENZONATATE 100 MG CAPSULE PO SCH (14:00)
[2020-03-23] MEDS ORDERED: AZITHROMYCIN 250 MG TAB PO ONE (15:30)
[2020-03-23] MEDS ORDERED: CEFDINIR 300 MG CAP PO ONE (15:30)
--- NOTE | 2020-03-23 15:46 | Discharge Summary ---
Date of Service March 23, 2020 Admission HPI Per Admitting Provider 80 yo male who comes to the ED from home with complaints of a cough, dyspnea that has been ongoing for 2 weeks. He denies any sick contacts, his who lives with him is not sick. He has not left his home for several weeks due to COVID 19 and his son drops off groceries. To his knowledge, he has NOT come into contact with anyone who has COVID 19. He says that the main symptom is a cough that is non-productive. He has been coughing so much that it hurts his abdomen, shoulders, back. The cough is non-productive. He has not had any fevers but he does admit to some chills and night sweats, he was noted to be afebrile in the ED. He has had a decreased appetite. He has been pushing fluids, drinking a lot of water. He has been having a difficult time sleeping because of the cough. He has tried Mucinex but it did not help at all. He tried some Robitussin OTC, that did not help either. He has not seen his PCP due to quarantine, social distancing. In the ED his vitals were stable. CXR with possible infectious process. WBC was up at 17k with left shift, predominantly PMN, no lymphopenia. Principal Diagnosis Atypical pneumonia Discharge Exam Constitutional WD/WN, vitals as above Eyes PERRL, conjunctivae normal, anicteric sclerae ENMT external ear and nose normal, oropharynx normal Neck trachea midline, no thyromegaly Respiratory normal respiratory effort and + cough; no respiratory distress and no labored breathing Auscultation: no crackles, no rales, no rhonchi and no wheezes Cardiovascular RRR, no murmur, no edema Gastrointestinal (Abdomen) normal bowel sounds, soft, nontender, no hepatosplenomegaly Musculoskeletal no cyanosis or clubbing, extremities motor strength 5/5 Skin no rashes, warm and dry Neurologic patellar DTR's 2+ bilat, sensation intact and PERRL, EOMI, accommodation nl, no face palsy, no dysarthria Psychiatric A+Ox3, euthymic affect Lymphatic no cervical or axillary lymphadenopathy Discharge Data Allergies Allergy/AdvReac Type Severity Reaction Status Date / Time Sulfa (Sulfonamide Allergy Severe RASH, Verified 03/22/20 13:40 Antibiotics) HIVES, SWOLLEN MOUTH, THROAT SWELLING Penicillins Allergy Mild RASH, HIVES Verified 03/22/20 13:40 lisinopril Allergy Unknown lethargic Verified 03/22/20 13:40 Consultations 03/22/20 15:21 ED Decision to Admit Stat Hospital Course (1) Atypical pneumonia: sick for 2 weeks, main symptom is a cough that will not subside, keeps him up he has not had any fever, his is not sick he has NOT left his house at all due to COVID 19, his son drops off groceries for he and his low to zero risk for COVID 19, will not test treat with Solu Medrol 40mg q12 Rocephin and Zithromax Robitussin for cough, Tessalon pearles TID CXR with bibasilar infiltrates, WBC is 17k with left shift of PMN, no lymphopenia this supports a bacterial infection patient feeling a little better, still with dry cough, minimal dyspnea no fever, WBC down to 13k will d/c home on Prednisone 40mg daily x 5 more days Cefdinir and Zithromax 3 more days follow up with Dr. Junior in 1 week (2) Cough: (3) Hypertension: continue home regimen of losartan, metoprolol (4) Cardiomyopathy: losartan, metoprolol (5) GERD (gastroesophageal reflux disease): PPI Total Time Total Time Spent Total Time Spent (In Minutes): 32 minutes Total Time Includes: Examination of the Patient (two separate visits with patient, each visit 10 minutes), Discharge Planning and Medication Reconciliation Discharge Plan Discharge Items Patient Disposition: Home - Self-Care Reason For Visit: PNEUMONIA Discharge Diagnosis: Pneumonia Bronchitis Cough Condition on Discharge: Good Goals: complete course of antibiotics and Prednisone stay well hydrated, well nourished, get rest Activity: Resume your previous activity Weightbearing: Full weightbearing Non-emergency contact: Primary Care Provider Call non-emergency contact if: you have any medication questions, your symptoms worsen and you have a fever Follow-up/Referrals: Ryan Junior Jr, DO [Primary Care Provider] - Diet: Heart Healthy Addtl Attending Provider Instructions: Medications: - PREDNISONE: 40mg daily x 5 more days, no need for taper, start tomorrow morning - CEFDINIR: 300mg twice a day for 3 more days, take tomorrow morning - ZITHROMAX: 250mg daily for 3 more days, take tomorrow morning - TESSALON: take three times a day for cough - CODEINE: take every 6 hours as needed for cough, take 10mL Bronchitis, atypical pneumonia, cough Chest x-ray with some subtle changes suggesting pneumonia no fever, WBC elevated at 17k on admission, trending down WBC showed a left shift suggesting underlying bacterial infection will finish a course of Prednisone, Cefdinir and Zithromax you were NOT tested for COVID 19 as you do not have a fever, no risk for infection since you have not left your home please call for follow up with Dr. Junior continue to self quarantine for your own safety during this time if you need to leave the house, always wear a mask, practice social distancing and frequent hand hygiene Cough: as we discussed, this could linger for some time use the Tessalon and Codeine as needed hopeful that the Prednisone and antibiotics will eradicate the source of the cough Pending Studies at Discharge: No Stand-Alone Forms: My [facility], Smoking Cessation Medications and DC Order Prescriptions: New benzonatate [Tessalon Perles] 100 mg Capsule 100 mg PO TID 10 Days Qty: 30 RF: 0 codeine-guaifenesin [Guaifenesin AC] 10-100 mg/5 mL liquid 10 ml PO Q6H PRN (Reason: cough) 10 Days Qty: 120 RF: 0 prednisone 20 mg tablet 40 mg PO DAILY 5 Days Qty: 10 RF: 0 azithromycin 250 mg tablet 250 mg PO DAILY 3 Days Qty: 3 RF: 0 cefdinir 300 mg capsule 300 mg PO BID 3 Days Qty: 6 RF: 0 Continued alprazolam [Xanax] 0.5 mg tablet 0.5 mg PO QAM RF: 0 finasteride [Proscar] 5 mg tablet 5 mg PO HS RF: 0 terazosin 5 mg capsule 5 mg PO DAILY RF: 0 losartan 25 mg tablet 25 mg PO DAILY Qty: 30 RF: 5 metoprolol succinate 50 mg tablet extended release 24 hr 50 mg PO DAILY Qty: 30 RF: 5 allopurinol 100 mg tablet 100 mg PO QAM RF: 0 aspirin 81 mg Tablet,Delayed Release (Dr/Ec) 81 mg PO HS RF: 0 rosuvastatin 5 mg tablet 5 mg PO HS RF: 0 alprazolam 0.5 mg Tablet 1 mg PO QPM RF: 0 pantoprazole 20 mg tablet,delayed release (DR/EC) 20 mg PO DAILY 360 Days Qty: 90 RF: 1 Discharge Orders: Discharge Order (Routine); Ordered 03/23/20 Ordered By: Juan Carlos Givens Admission Data Admit Date/Time: 03/22/20 17:37 Attending Provider: Juan Carlos Givens Admit Provider: Juan Carlos Givens Primary Care Provider: Ryan Junior Jr Other Providers: Juan Carlos Givens Coding Level of Care Code D/C Day Management >30 mins Diagnoses Atypical pneumonia J18.9 Cough R05 Hypertension I10 Cardiomyopathy I42.9 GERD (gastroesophageal reflux disease) K21.9
== END 2020-03-23 16:43 | disposition home or self-care (01) | DRG 194 ==
LOC: ED 11:41 → 2W 11:41

== ENCOUNTER 2021-05-11 09:53 | Inpatient (IN) ==
--- NOTE | 2021-05-11 10:18 | Emergency Department Note ---
Impression & Plan Pulmonary edema, Edema, YSABEL (acute kidney injury) ED Provider Note NAME: ERICH GALO AGE: 81 SEX: M : 1940 ARRIVES VIA: Walk-In INFORMANT: Patient, ED PROVIDER(S): Jeronimo Bass DO CHIEF COMPLAINT: Shortness of breath the patient is an 81-year-old male who has a history of pulmonary fibrosis who presented to the emergency department for an evaluation of difficulty breathing. The patient has noted difficulty breathing as well as cough. HPI: He states he has a productive cough for whitish sputum. He denies having any chest pain but does describe abdominal distention. He states his abdominal distention has worsened over the course the last few weeks. The patient called his primary construction equipment mechanic and was referred to the emergency department for further evaluation and possible inpatient management. The patient states he has been compliant with all of his outpatient medications. He has had no recent changes to his outpatient medication regimen. The patient notices the leg swelling has improved significantly over the last 2 weeks but he has had an overall weight gain of 30 pounds. He denies having any fever. He denies having any recent trauma or falls. He has been tested multiple times for COVID-19 and has been negative. He does not wear oxygen at home. He did not experience any chest pain. He does complain of significant shortness of breath with exertion as well as bending forward. ROS: See above HPI for pertinent positives & negatives. A total of 10 systems reviewed and were otherwise negative. PAST MEDICAL HISTORY: See Below PAST SURGICAL HISTORY: See Below FAMILY HISTORY: See Below SOCIAL HISTORY: See Below HOME MEDICATIONS: See Below ALLERGIES: See Below VITALS: See Below PHYSICAL EXAMINATION: GENERAL: Patient is awake alert in no acute distress patient is resting comfortably and showing no signs of anxiety EYES: The conjunctivae are clear. The pupils are round and reactive. EARS, NOSE, MOUTH AND THROAT: The nose is without any evidence of any deformity. Mucous membranes are moist. Tongue is midline. NECK: The neck is nontender and supple. RESPIRATORY: Diminished breath sounds are noted at both bases. There is no significant rales rhonchi or wheezing noted. CARDIOVASCULAR: Regular rate and rhythm noted there no murmurs rubs or gallops normal S1 normal S2. GASTROINTESTINAL: The abdomen is moderately distended. There is no specific tenderness guarding rigidity. MUSCULOSKELETAL/EXTREMITIES: There is no evidence of gross deformity full range of motion is noted in the hips and shoulders. SKIN: Skin is warm and dry. Trace pedal edema was noted bilaterally. NEUROLOGIC: Patient is awake alert and oriented x 3. MEDICAL DECISION MAKING: The patient is an 81-year-old male who presented to the emergency department for an evaluation of difficulty breathing. The patient does have a primary construction equipment mechanic. He called the construction equipment mechanic and was told to come the emergency department. I discussed the patient's laboratory and radiographic studies with him. I also discussed his case with his primary construction equipment mechanic. The concern is that the patient may require inpatient management of his volume status. For this reason I discussed his case with the on-call [facility]. Th ey have agreed to evaluate the patient in the emergency department for further management and disposition. Triage Nursing notes reviewed. Prior medical records reviewed Vital Signs: reviewed and remarkable for elevated blood pressure. Differential diagnosis: Reactive airway disease, pneumonia, pneumothorax, COPD, CHF, infections, cardiac ischemia, pulmonary embolism, musculoskeletal, gastrointestinal, as well as other pathologies. ER treatment provided: See below Diagnostics interpreted by me: ECG: EKG was obtained in the emergency department. My interpretation is sinus b radycardia at 55 bpm. There is no ectopy. Right bundle branch block pattern was noted. This was compared to a tracing from November 202020. The right bundle branch block pattern is new compared to the previous tracing. Cardiac Monitoring: An order was placed for continuous cardiac monitoring. The monitor shows a rate of 75 bpm with sinus rhythm. Laboratory studies: As stated above and show below. Imaging studies: See below Consultation(s): I discussed this case with Dr. Simons who is on-call for the [facility]. 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 07/31/19 [place] Schatzki's ring Venous insufficiency Surgical History H/O foot surgery 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06[place] [facility] [place] [facility] [place] of bilateral knee replacement History of cardiac cath in 1960s--no stents History of colonoscopy History of esophagogastroduodenoscopy (EGD) with dilation History of tonsillectomy and adenoidectomy History of wisdom tooth extraction S/P dilatation of esophageal stricture Family History Father Family history of diabetes mellitus Coronary heart disease Prostate cancer Uncle Coronary heart disease Other No family history of adverse response to anesthesia Social History Smoking Status: Never smoker Second Hand Exposure: No; Hx Alcohol Use: No Hx Substance Use: No Preferred Language: Tajik Communication Ability: Effective Visual Impairment: No Limitations Hearing Ability: Normal Production Control Coordinator Required: No Beliefs That Will Affect Care: None marital status: Current Living Situation: Alone current occupational status: retired Feels Safe at Home: Yes Assistive Devices: Oxygen - Continuous Allergies Allergies Allergy/AdvReac Type Severity Reaction Status Date / Time Sulfa (Sulfonamide Allergy Severe RASH, Verified 04/29/21 14:38 Antibiotics) HIVES, SWOLLEN MOUTH, THROAT SWELLING Penicillins Allergy Mild RASH, HIVES Verified 04/29/21 14:38 lisinopril Allergy Unknown lethargic Verified 04/29/21 14:38 Home Meds Home Medications Medication Instructions Recorded Confirmed finasteride 5 mg tablet 5 mg PO HS tab 07/10/19 05/11/21 allopurinol 100 mg PO QAM 07/30/19 05/11/21 aspirin 81 mg PO HS 07/30/19 05/11/21 rosuvastatin 5 mg PO HS 07/30/19 05/11/21 terazosin 5 mg capsule 5 mg PO HS 01/15/20 05/11/21 omeprazole 40 mg capsule,delayed 40 mg PO QAM 04/28/20 05/11/21 release metformin 500 mg tablet 500 mg PO HS 07/23/20 05/11/21 escitalopram oxalate 10 mg tablet 10 mg PO HS 11/02/20 05/11/21 famotidine 40 mg tablet 40 mg PO HS tab 11/02/20 05/11/21 amlodipine 5 mg PO QAM 11/20/20 05/11/21 metoprolol succinate 50 mg PO HS 11/20/20 05/11/21 alprazolam 0.5 mg tablet See Rx Instructions PO DAILY tab 01/31/21 05/11/21 insulin degludec 100 unit/mL (3 20 unit SUBCUT QAM ml 01/31/21 05/11/21 mL) subcutaneous pen insulin lispro 100 unit/mL 10 unit SUBCUT DAILY ml 01/31/21 05/11/21 subcutaneous solution levothyroxine 50 mcg capsule 50 mcg PO DAILY 01/31/21 05/11/21 prednisone 10 mg tablet 10 mg PO DAILY 01/31/21 05/11/21 spironolactone 50 mg tablet 100 mg PO BID tab 01/31/21 05/11/21 Previous Rx's Medication Instructions Recorded furosemide 40 mg tablet 40 mg PO BID #60 tab 03/25/21 mycophenolate mofetil 250 mg 250 mg PO BID #120 cap 03/25/21 capsule metolazone 2.5 mg tablet 2.5 mg PO DAILY #30 tab 04/29/21 Results & Data (ED) Vital Signs Vital Signs - 24 hr 05/11/21 09:58 05/11/21 10:09 05/11/21 11:00 Temperature 36.1 C L Temperature Source Temporal Artery Scan Pulse Rate 60 52 L Pulse Rate from SpO2 Sensor 54 L Respiratory Rate 22 18 Respiratory Effort / Characteristics Short of Breath Respiratory Depth Normal Respiratory Pattern Regular Blood Pressure 130/82 108/69 Blood Pressure Mean 98 82 Blood Pressure Position Sitting Pulse Oximetry 98 96 96 Oxygen Delivery Method Room Air Room Air Sepsis Recent Fever Within 48 Hours No Sepsis New/Unexplained Change in Mental Status No Sepsis Action Taken by Nursing No Action Required 05/11/21 11:30 05/11/21 11:40 05/11/21 11:50 Temperature Temperature Source Pulse Rate 55 L 56 L 55 L Pulse Rate from SpO2 Sensor 57 L 53 L 54 L Respiratory Rate 18 22 16 Respiratory Effort / Characteristics Respiratory Depth Respiratory Pattern Blood Pressure 131/88 Blood Pressure Mean 102 Blood Pressure Position Pulse Oximetry 97 97 97 Oxygen Delivery Method Sepsis Recent Fever Within 48 Hours Sepsis New/Unexplained Change in Mental Status Sepsis Action Taken by Nursing 05/11/21 12:00 05/11/21 12:12 05/11/21 12:20 Temperature Temperature Source Pulse Rate 59 L 73 66 Pulse Rate from SpO2 Sensor 58 L 61 Respiratory Rate 16 18 18 Respiratory Effort / Characteristics Respiratory Depth Respiratory Pattern Blood Pressure 126/78 Blood Pressure Mean 94 Blood Pressure Position Pulse Oximetry 96 97 99 Oxygen Delivery Method Sepsis Recent Fever Within 48 Hours Sepsis New/Unexplained Change in Mental Status Sepsis Action Taken by Nursing 05/11/21 12:30 Temperature Temperature Source Pulse Rate 62 Pulse Rate from SpO2 Sensor 66 Respiratory Rate 23 Respiratory Effort / Characteristics Respiratory Depth Respiratory Pattern Blood Pressure 119/78 Blood Pressure Mean 91 Blood Pressure Position Pulse Oximetry 99 Oxygen Delivery Method Sepsis Recent Fever Within 48 Hours Sepsis New/Unexplained Change in Mental Status Sepsis Action Taken by Halfway Medications Current Medication List: was personally reviewed by me Laboratory Data Attestation: I reviewed the patient's lab results. Result diagrams: 05/11/21 10:25 05/11/21 10:25 Lab Results 05/11/21 05/11/21 05/11/21 Range/Units 10:18 10:18 10:25 WBC 13.89 H (4.8-10.8) K/uL RBC 3.79 L (4.7-6.1) M/uL Hgb 12.5 L (14.0-18.0) g/dL Hct 35.9 L (42-52) % MCV 94.7 (80-100) fL MCH 33.0 (25-34) pg MCHC 34.8 (32-36) g/dL RDW Std Deviation 46.6 H (36.4-46.3) fL RDW Coeff of Graham 13.4 (11.5-14.5) % Plt Count 266 (130-400) K/uL MPV 10.1 (7.4-10.4) fL Immature Gran % (Auto) 2.3 % Neut % (Auto) 80.1 % Lymph % (Auto) 7.8 % Davis % (Auto) 8.7 % Eos % (Auto) 0.8 % Baso % (Auto) 0.3 % Neut # (Auto) 11.13 H (1.4-6.5) K/uL Lymph # (Auto) 1.08 L (1.2-3.4) K/uL Davis # (Auto) 1.21 H (0.11-0.59) K/uL Eos # (Auto) 0.11 (0-0.5) K/uL Baso # (Auto) 0.04 (0-0.2) K/uL Immature Gran # (Auto) 0.32 H (0.00-0.02) K/uL PT (9.0-12.0) Seconds INR (0.9-1.1) APTT (21.0-31.0) Seconds PTT Ratio Sodium (136-145) mmol/L Potassium (3.5-5.1) mmol/L Chloride (98-107) mmol/L Carbon Dioxide (21-32) mmol/L Anion Gap (3-11) BUN (7-18) mg/dl Creatinine (0.6-1.4) mg/dl Est Cr Clr Drug Dosing ml/min Est GFR ( Amer) ml/min Est GFR (Non-Af Amer) ml/min BUN/Creatinine Ratio (10-20) Glucose (70-99) mg/dl Calcium (8.5-10.1) mg/dl Total Bilirubin (0.2-1) mg/dl AST (15-37) U/L ALT (12-78) U/L Alkaline Phosphatase (45-117) U/L Troponin I (0-0.045) ng/ml NT-Pro-B Natriuret Pep (0-1800) pg/ml Total Protein (6.4-8.2) gm/dl Albumin (3.4-5.0) gm/dl Globulin (2.5-4.0) gm/dl Albumin/Globulin Ratio (0.9-2) Urine Color Urine Appearance (Clear) Urine pH (4.5-7.5) Ur Specific Trego (1.000-1.030) Urine Protein (Negative) Urine Glucose (UA) (Negative) Urine Ketones (Negative) Urine Blood (Negative) Urine Nitrite (Negative) Urine Bilirubin (Negative) Urine Urobilinogen (Negative) Ur Leukocyte Esterase (Negative) Urine WBC (Auto) (0-5) /hpf Urine RBC (Auto) (0-4) /hpf U Hyaline Cast (Auto) (0-5) /lpf U Epithel Cells (Auto) (0-5) /lpf Urine Bacteria (Auto) (Negative) COVID-19 Eval Order Covid19 at [facility] SARS-CoV-2 (PCR) NEGATIVE (Negative) 05/11/21 05/11/2105/11/21 Range/Units 10:25 10:25 10:25 WBC (4.8-10.8) K/uL RBC (4.7-6.1) M/uL Hgb (14.0-18.0) g/dL Hct (42-52) % MCV (80-100) fL MCH (25-34) pg MCHC (32-36) g/dL RDW Std Deviation (36.4-46.3) fL RDW Coeff of Graham (11.5-14.5) % Plt Count (130-400) K/uL MPV (7.4-10.4) fL Immature Gran % (Auto) % Neut % (Auto) % Lymph % (Auto) % Davis % (Auto) % Eos % (Auto) % Baso % (Auto) % Neut # (Auto) (1.4-6.5) K/uL Lymph # (Auto) (1.2-3.4) K/uL Davis # (Auto) (0.11-0.59) K/uL Eos # (Auto) (0-0.5) K/uL Baso # (Auto) (0-0.2) K/uL Immature Gran # (Auto) (0.00-0.02) K/uL PT 9.8 (9.0-12.0) Seconds INR 1.0 (0.9-1.1) APTT 23.6 (21.0-31.0) Seconds PTT Ratio 0.9 Sodium 130 L (136-145) mmol/L Potassium 4.5 (3.5-5.1) mmol/L Chloride 99 (98-107) mmol/L Carbon Dioxide 24 (21-32) mmol/L Anion Gap 7.0 (3-11) BUN 80 H (7-18) mg/dl Creatinine 2.19 H (0.6-1.4) mg/dl Est Cr Clr Drug Dosing 27.9 ml/min Est GFR ( Amer) 31.1 ml/min Est GFR (Non-Af Amer) 26.9 ml/min BUN/Creatinine Ratio 36.5 H (10-20) Glucose 180 H (70-99) mg/dl Calcium 9.6 (8.5-10.1) mg/dl Total Bilirubin 0.4 (0.2-1) mg/dl AST 16 (15-37) U/L ALT 35 (12-78) U/L Alkaline Phosphatase 54 (45-117) U/L Troponin I 0.015 (0-0.045) ng/ml NT-Pro-B Natriuret Pep 448 (0-1800) pg/ml Total Protein 6.9 (6.4-8.2) gm/dl Albumin 3.5 (3.4-5.0) gm/dl Globulin 3.4 (2.5-4.0) gm/dl Albumin/Globulin Ratio 1.0 (0.9-2) Urine Color Urine Appearance (Clear) Urine pH (4.5-7.5) Ur Specific Trego (1.000-1.030) Urine Protein (Negative) Urine Glucose (UA) (Negative) Urine Ketones (Negative) Urine Blood (Negative) Urine Nitrite (Negative) Urine Bilirubin (Negative) Urine Urobilinogen (Negative) Ur Leukocyte Esterase (Negative) Urine WBC (Auto) (0-5) /hpf Urine RBC (Auto) (0-4) /hpf U Hyaline Cast (Auto) (0-5) /lpf U Epithel Cells (Auto) (0-5) /lpf Urine Bacteria (Auto) (Negative) COVID-19 Eval Order SARS-CoV-2 (PCR) (Negative) 05/11/21 Range/Units 12:04 WBC (4.8-10.8) K/uL RBC (4.7-6.1) M/uL Hgb (14.0-18.0) g/dL Hct (42-52) % MCV (80-100) fL MCH (25-34) pg MCHC (32-36) g/dL RDW Std Deviation (36.4-46.3) fL RDW Coeff of Graham (11.5-14.5) % Plt Count (130-400) K/uL MPV (7.4-10.4) fL Immature Gran % (Auto) % Neut % (Auto) % Lymph % (Auto) % Davis % (Auto) % Eos % (Auto) % Baso % (Auto) % Neut # (Auto) (1.4-6.5) K/uL Lymph # (Auto) (1.2-3.4) K/uL Davis # (Auto) (0.11-0.59) K/uL Eos # (Auto) (0-0.5) K/uL Baso # (Auto) (0-0.2) K/uL Immature Gran # (Auto) (0.00-0.02) K/uL PT (9.0-12.0) Seconds INR (0.9-1.1) APTT (21.0-31.0) Seconds PTT Ratio Sodium (136-145) mmol/L Potassium (3.5-5.1) mmol/L Chloride (98-107) mmol/L Carbon Dioxide (21-32) mmol/L Anion Gap (3-11) BUN (7-18) mg/dl Creatinine (0.6-1.4) mg/dl Est Cr Clr Drug Dosing ml/min Est GFR ( Amer) ml/min Est GFR (Non-Af Amer) ml/min BUN/Creatinine Ratio (10-20) Glucose (70-99) mg/dl Calcium (8.5-10.1) mg/dl Total Bilirubin (0.2-1) mg/dl AST (15-37) U/L ALT (12-78) U/L Alkaline Phosphatase (45-117) U/L Troponin I (0-0.045) ng/ml NT-Pro-B Natriuret Pep (0-1800) pg/ml Total Protein (6.4-8.2) gm/dl Albumin (3.4-5.0) gm/dl Globulin (2.5-4.0) gm/dl Albumin/Globulin Ratio (0.9-2) Urine Color Yellow Urine Appearance Clear (Clear) Urine pH 5.0 (4.5-7.5) Ur Specific Trego 1.008 (1.000-1.030) Urine Protein Negative (Negative) Urine Glucose (UA) Negative (Negative) Urine Ketones Negative (Negative) Urine Blood Negative (Negative) Urine Nitrite Negative (Negative) Urine Bilirubin Negative (Negative) Urine Urobilinogen Negative (Negative) Ur Leukocyte Esterase 2+ H (Negative) Urine WBC (Auto) 5-10 H (0-5) /hpf Urine RBC (Auto) 0-4 (0-4) /hpf U Hyaline Cast (Auto) 1-5 (0-5) /lpf U Epithel Cells (Auto) 0-5 (0-5) /lpf Urine Bacteria (Auto) Negative (Negative) COVID-19 Eval Order SARS-CoV-2 (PCR) (Negative) Administered Medications Heparin Sodium (Porcine) (Heparin Sod 5,000 Unit/0.5 Ml Vial) 5,000 units SQ Q8 JUAN A Stop: 06/10/21 14:59 Last Admin: 05/11/21 14:55 Dose: 5,000 units Documented by: [id number] Insulin Aspart (Insulin Aspart 100 Units/Ml 3 Ml Pen) 0 units SC ACHS JUAN A Stop: 06/10/21 16:29 Last Admin: 05/11/21 17:22 Dose: 2 units Documented by: [id number] Cosigned by: [id number] Admin: 05/11/21 14:56 Dose: 3 units Documented by: [id number] Cosigned by: [id number] Spironolactone (Spironolactone 100 Mg Tab) 100 mg PO [id number] JUAN A Stop: 06/10/21 16:59 Last Admin: 05/11/21 17:23 Dose: 100 mg Documented by: [id number] Discontinued Medications Furosemide (Furosemide 40 Mg/4 Ml Vial) 40 mg IV NOW STA Stop: 05/11/21 11:51 Last Admin: 05/11/21 12:24 Dose: 40 mg Documented by: [id number] Imaging Data Radiologist's Impression: Chest X-Ray 05/11/21 10:10 XR chest 1V portable CLINICAL HISTORY: Dyspnea COMPARISON STUDY: 11/20/2020 FINDINGS: The heart remains enlarged. There are persistent but improving right u pper lung zone interstitial opacities. There is blunting of the lateral costophrenic angles. There is indistinctness of the left heart border, likely secondary to a fat pad.[ IMPRESSION: Persistent but improving right upper lung zone interstitial opacities. ACT 112: Negative or not required by law. Electronically signed by: Isrrael Perez M.D. 05/11/2021 10:43 AM KUB X-Ray 05/11/21 10:12 XR KUB/Abdomen 1 view CLINICAL HISTORY: abd distended COMPARISON STUDY: No previous studies for comparison. FINDINGS: There is no pathologic bowel dilatation. Degenerative changes are present within the spine. There are no calcifications suspicious for renal calculi. There are prominent prostatic calcifications similar to the prior study IMPRESSION: Nonobstructive bowel gas pattern. ACT 112: Negative or not required by law. Electronically signed by: Isrrael Perez M.D. 05/11/2021 10:44 AM Discharge Plan Visit Data Chief Complaint: Shortness of Breath/Dyspnea Stated Complaint: LABORED BREATHING,ADVISED BY DR. SILVA ED Provider: Jeronimo Bass Discharge Problem: Pulmonary edema, Edema, YSABEL (acute kidney injury) Patient Disposition: Admitted As Inpatient Condition: Good Discharge Instructions Interventions: ED Discharge Assessment Last Done: 05/11/21 13:57
[2021-05-11 10:33] LABS: Basophils # (auto) 0.04 K/uL (0-0.2); Basophils % (auto) 0.3 %; Eosinophils # (auto) 0.11 K/uL (0-0.5); Eosinophils % (auto) 0.8 %; Hematocrit (blood only) 35.9 % (42-52); Hemoglobin 12.5 g/dL (14.0-18.0); Immature Granulocytes # (auto) 0.32 K/uL (0.00-0.02); Immature Granulocytes % (auto) 2.3 %; Lymphocytes # (auto) 1.08 K/uL (1.2-3.4); Lymphocytes % (auto) 7.8 %; Mean Corpuscular Hgb Conc 34.8 g/dL (32-36); Mean Corpuscular Volume 94.7 fL (80-100); Mean Platelet Volume 10.1 fL (7.4-10.4); Monocytes # (auto) 1.21 K/uL (0.11-0.59); Monocytes % (auto) 8.7 %; Neutrophils # (auto) 11.13 K/uL (1.4-6.5); Neutrophils % (auto) 80.1 %; Platelet Count 266 K/uL (130-400); RDW Coefficient of Variation 13.4 % (11.5-14.5); RDW Standard Deviation 46.6 fL (36.4-46.3); Red Blood Count 3.79 M/uL (4.7-6.1); White Blood Count 13.89 K/uL (4.8-10.8)
[2021-05-11 10:44] LABS: Partial Thromboplastin Ratio 0.9; Partial Thromboplastin Time 23.6 Seconds (21.0-31.0); Prothrombin Time 9.8 Seconds (9.0-12.0)
--- NOTE | 2021-05-11 10:45 | XRay Report ---
XR KUB/Abdomen 1 view CLINICAL HISTORY: abd distended COMPARISON STUDY: No previous studies for comparison. FINDINGS: There is no pathologic bowel dilatation. Degenerative changes are present within the spine. There are no calcifications suspicious for renal calculi. There are prominent prostatic calcificatio ns similar to the prior study IMPRESSION: Nonobstructive bowel gas pattern. ACT 112: Negative or not required by law. Electronically signed by: Isrrael Perez M.D. 05/11/2021 10:44 AM
--- NOTE | 2021-05-11 10:45 | XRay Report ---
XR chest 1V portable CLINICAL HISTORY: Dyspnea COMPARISON STUDY: 11/20/2020 FINDINGS: The heart remains enlarged. There are persistent but improving right upper lung zone inters titial opacities. There is blunting of the lateral costophrenic angles. There is indistinctness of th e left heart border, likely secondary to a fat pad.[ IMPRESSION: Persistent but improving right upper lung zone interstitial opacities. ACT 112: Negative or not required by law. Electronically signed by: Isrrael Perez M.D. 05/11/2021 10:43 AM
[2021-05-11 10:51] LABS: Albumin Level 3.5 gm/dl (3.4-5.0); BUN Creatinine Ratio 36.5 (10-20); Calcium 9.6 mg/dl (8.5-10.1); Creatinine Clr Calc Pharmacy 27.9 ml/min; Est GFR (African American) 31.1 ml/min; Est GFR (Non-African American) 26.9 ml/min; Potassium 4.5 mmol/L (3.5-5.1)
[2021-05-11 10:53] LABS: Bilirubin,Total 0.4 mg/dl (0.2-1); Globulin 3.4 gm/dl (2.5-4.0); Total Protein 6.9 gm/dl (6.4-8.2)
[2021-05-11 11:39] LABS: Troponin I 0.015 ng/ml (0-0.045)
[2021-05-11] MEDS ORDERED: FUROSEMIDE 40 MG/4 ML VIAL IV STA (11:50)
--- NOTE | 2021-05-11 11:56 | History & Physical Report ---
Date of Service May 11, 2021 Assessment & Plan (1) Interstitial lung disease: As per HPI, increase in dyspnea with increase in peripheral edema - Continue CellCept - prednisone held-- appreciate pulmonary recommendations. Watch for adrenal crisis as has been on prednisone since 07/2020 - His WBC are at his baseline with chronic steroids - PFT recent with decrease in TLC and DLCO - Oxygen PRN if needed - Follow dyspnea response to diuretics (2) Edema: Multifactorial with ILD, decrease response to diuretics, cardiomyopathy - Lasix 40 mg IV x1 now - Goal will be 750-1000 ml negative in 24 hours - If no response consider increase dose or change to BUMEX - Hold metolazone with financial secretary and BUN - Continue Aldactone (3) YSABEL (acute kidney injury): YSABEL type II on CKD III - Increase in BUN and FLUMER- pre-renal appearing at this time - Diurese and evaluate with decreasing preload and heart function - BMP tonight at 1800 if continues to worsen in light of above will consult nephrology - UA negative for blood or protein - Renal ultrasound (4) Cardiomyopathy: As above - ECHO for evaluation of valve and RVSP (5) Hypertension: Continue with amlodipine, metoprolol, spironolactone, Terazosin (6) Mitral regurgitation: Stable as above- diurese (7) Aortic stenosis: As above, follow with diuresing (8) RBBB: New compared to previous with incomplete - ECHO likely component of ILD and elevated RSVP (9) DMII (diabetes mellitus, type 2): On Tresiba at home- formulary equivalent- pharmacy to adjust - Aspart sliding scale CF 30 with carb ratio 1:20 - hypoglycemic protocol ordered (10) BPH (benign prostatic hyperplasia): No LUTS feels as he is emptying his bladder completely - bladder scan now evaluate for retention (11) GERD (gastroesophageal reflux disease): Continue PPI DVT prophy-heparin SQ Dispo-admit to PCU History of Present Illness Primary Care Provider: Ryan Junior Jr, DO 81 YOM with past medical history of; mild mitral regurge, mild aortic stenosis, cardiomyopathy, diastolic dysfunction, HTN, GERD, interstitial lung disease, DMII, BPH and venous insufficiency with GSV ablation in 2019, bilateral knee replacements. Patient has been having ongoing dyspnea with his ILD in attempts to wean his steroid dosing. He was recently started on CellCept and has been on that for the past 2 weeks. He has not noted much improvement. He has noticed increase in his abdominal girth and continues to have lower extremity edema. Patient endorses that his diuretic dosing has not been to effective and increase in cough with thin secretions. He was on Lasix and Aldactone, he had metolazone 2.5mg daily at his appointment on 04/29. He came in at the direction of his gis application developer for further diuresing attempts with little success as outpatient. Patient will be admitted to follow his renal function, which appears pre-renal at this time likely related to his volume status, diuresed with IV and goal 1L negative today. He is dyspneic but not on oxygen. Patient history of cardiomyopathy is improved with last ECHO in October 31, with EF 55-60% with LVH mild MR and mild , and mild Left atrial enlargement. He also has history of frequent PVC asymptomatic with Holter monitor in 2018. He has been on BB since that time, also noted intolerance to DONY. Allergies Allergy/AdvReac Type Severity Reaction Status Date / Time Sulfa (Sulfonamide Allergy Severe RASH, Verified 04/29/21 14:38 Antibiotics) HIVES, SWOLLEN MOUTH, THROAT SWELLING Penicillins Allergy Mild RASH, HIVES Verified 04/29/21 14:38 lisinopril Allergy Unknown lethargic Verified 04/29/21 14:38 Home Medications Medication Instructions Recorded Confirmed Type finasteride 5 mg tablet 5 mg PO HS tab 07/10/19 05/11/21 History allopurinol 100 mg PO QAM 07/30/19 05/11/21 History aspirin 81 mg PO HS 07/30/19 05/11/21 History rosuvastatin 5 mg PO HS 07/30/19 05/11/21 History terazosin 5 mg capsule 5 mg PO HS 01/15/20 05/11/21 History omeprazole 40 mg capsule,delayed 40 mg PO QAM 04/28/20 05/11/21 History release metformin 500 mg tablet 500 mg PO HS 07/23/20 05/11/21 History escitalopram oxalate 10 mg tablet 10 mg PO HS 11/02/20 05/11/21 History famotidine 40 mg tablet 40 mg PO HS tab 11/02/20 05/11/21 History amlodipine 5 mg PO QAM 11/20/20 05/11/21 History metoprolol succinate 50 mg PO HS 11/20/20 05/11/21 History alprazolam 0.5 mg tablet See Rx Instructions PO DAILY tab 01/31/21 05/11/21 History insulin degludec 100 unit/mL (3 20 unit SUBCUT QAM ml 01/31/21 05/11/21 History mL) subcutaneous pen insulin lispro 100 unit/mL 10 unit SUBCUT DAILY ml 01/31/21 05/11/21 History subcutaneous solution levothyroxine 50 mcg capsule 50 mcg PO DAILY 01/31/21 05/11/21 History prednisone 10 mg tablet 10 mg PO DAILY 01/31/21 05/11/21 History spironolactone 50 mg tablet 100 mg PO BID tab 01/31/21 05/11/21 History furosemide 40 mg tablet 40 mg PO BID #60 tab 03/25/21 05/11/21 Rx mycophenolate mofetil 250 mg 250 mg PO BID #120 cap 03/25/21 05/11/21 Rx capsule metolazone 2.5 mg tablet 2.5 mg PO DAILY #30 tab 04/29/21 05/11/21 Rx 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 07/31/19 [place] Schatzki's ring Venous insufficiency Surgical History H/O foot surgery 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 TOE - 08/06/19 [facility] History of bilateral knee replacement History of cardiac cath in 1960s--no stents History of colonoscopy History of esophagogastroduodenoscopy (EGD) with dilation History of tonsillectomy and adenoidectomy History of wisdom tooth extraction S/P dilatation of esophageal stricture Family History Father Family history of diabetes mellitus Coronary heart disease Prostate cancer Uncle Coronary heart disease Other No family history of adverse response to anesthesia Social History Smoking Status: Never smoker Second Hand Exposure: No; Hx Alcohol Use: No Hx Substance Use: No Preferred Language: Pakistani Communication Ability: Effective Visual Impairment: No Limitations Hearing Ability: Normal Medical Technologist Chemistry Required: No Beliefs That Will Affect Care: None marital status: Current Living Situation: Alone current occupational status: retired Feels Safe at Home: Yes Assistive Devices: Oxygen - Continuous Review of Systems Review of Systems: REVIEW OF SYSTEMS: Constitutional: No fever, sweats or chills Eyes: No diplopia, no worsening or blurred vision ENT: normal hearing, no trouble swallowing Respiratory: (+) dyspnea cough, sputum, No change in sputum color or consistency Cardiovascular: No chest pain, tightness or palpitations Abdomen: (+) fullness and tightness noticing clothes don't fit, No pain, nausea, vomiting, diarrhea or constipation Musculoskeletal: No joint pain, calf pain, swelling Neurologic: No weakness, numbness/tingling, or balance problems Psychiatric: No anxiety or depression Skin: No rash or itch Physical Exam Physical Exam: PHYSICAL EXAM: General: awake, alert, no apparent distress Head: Normocephalic, atraumatic ENT: PERRL, EOMI, no pharyngeal exudate, mucous membranes moist Neuro: AAO x 3, speech clear and appropriate, strength intact bilaterally 5/5, sensation intact and equal all extremities and dermatomes, no pronator drift Chest: equal rise and fall of the chest, no accessory muscle use, no heaves or thrills, scattered fine crackles but good air movement throughout, on room air, Cardiac: Regular rate and rhythm, telemetry reviewed-NSR with PVC, skin warm dry, cap refill <3 seconds, peripheral pulses +2 no JVD, systolic murmur best at LSB, no edema GI: NABS x 4 quadrants, distended and taught but nontender to palpation, no rebound, guarding or tenderness : Spontaneously voiding, no pain, no CVA tenderness Extremities: Normal inspection, no peripheral edema or erythema, calfs nontende r to palpation Psych: Normal mood and affect Skin: no rash or erythema Results & Data Results & Data ([facility]) Vital Signs (Past 12 Hours) Vital Signs Temp Pulse Resp BP Pulse Ox 05/11/21 11:00 52 L 18 108/69 96 05/11/21 10:09 96 05/11/21 09:58 36.1 C L 60 22 130/82 98 Laboratory Results Abnormal lab results 05/11/21 05/11/21 Range/Units 10:25 10:25 WBC 13.89 H (4.8-10.8) K/uL RBC 3.79 L (4.7-6.1) M/uL Hgb 12.5 L (14.0-18.0) g/dL Hct 35.9 L (42-52) % RDW Std Deviation 46.6 H (36.4-46.3) fL Neut # (Auto) 11.13 H (1.4-6.5) K/uL Lymph # (Auto) 1.08 L (1.2-3.4) K/uL O'Brien # (Auto) 1.21 H (0.11-0.59) K/uL Immature Gran # (Auto) 0.32 H (0.00-0.02) K/uL Sodium 130 L (136-145) mmol/L BUN 80 H (7-18) mg/dl Creatinine 2.19 H (0.6-1.4) mg/dl BUN/Creatinine Ratio 36.5 H (10-20) Glucose 180 H (70-99) mg/dl Diagnostic Findings Chest X-Ray 05/11/21 10:10 XR chest 1V portable CLINICAL HISTORY: Dyspnea COMPARISON STUDY: 11/20/2020 FINDINGS: The heart remains enlarged. There are persistent but improving right upper lung zone interstitial opacities. There is blunting of the lateral costophrenic angles. There is indistinctness of the left heart border, likely secondary to a fat pad.[ IMPRESSION: Persistent but improving right upper lung zone interstitial opacities. Electronically signed by: Isrrael Perez M.D. 05/11/2021 10:43 AM KUB X-Ray 05/11/21 10:12 XR KUB/Abdomen 1 view CLINICAL HISTORY: abd distended COMPARISON STUDY: No previous studies for comparison. FINDINGS: There is no pathologic bowel dilatation. Degenerative changes are present within the spine. There are no calcifications suspicious for renal calculi. There are prominent prostatic calcifications similar to the prior study IMPRESSION: Nonobstructive bowel gas pattern. Electronically signed by: Isrrael Perez M.D. 05/11/2021 10:44 AM Medications Administered Lasix 40mg IV ECG Additional Comments: Sinus bradycardia with sinus arrhythmia Right bundle branch block Abnormal ECG When compared with ECG of 20-NOV-2020 13:16, Premature ventricular complexes are no longer Present Right bundle branch block is now Present Code Status & VTE Plan Code Status CODE: FULL VTE: SCD's, Heparin 5000 subq q8 Supervising Physician Co-Signing Physician Notes DIAGRAM CLERK Supervision note: I have personally seen and examined the patient and discussed and verified the kirby points of the history and physical along with the plan with CARMEL Barraza with the following exceptions and/or additions: Patient is an 81-year-old male who presents to the ER with worsening abdominal distention in the setting of lower extremity edema and interstitial lung disease with recent increase in diuretics as an outpatient in addition of metolazone. He is found to have acute kidney injury. WBC count elevated most likely secondary to chronic prednisone use. History and ROS reviewed as above Vitals reviewed Gen: AAOx3, NAD HEENT: Anicteric sclerae, EOMI CV: RRR 2/6 MAXWELL at the RUSB nl S1S2 Pulm: Bibasilar crackles, no wheezes rhonchi Abd: +BS softly distended, NT ND no masses or hernias Ext: 1-2+ pitting edema of the legs bilaterally Skin: No rashes, warm/dry Neuro: Full strength throughout Laboratory values and radiology studies reviewed 81-year-old male here with history as above here with volume overload, acute kidney injury Attempt IV diuresis and follow renal function carefully Repeat creatinine later in the evening was worse We will hold Aldactone and further diuresis at this time Continue home metolazone Consult nephrology Caution with abrupt discontinuation of prednisone-May need slower taper PG Care Time/CCT Total # of Minutes Spent Total Time Spent with Patient: Total time spent is greater than 50% in coordination of care (as documented) at patient's floor/unit and/or counseling patient: Coding Level of Care Code 27033 Initial Inpt Care Lvl 3 Diagnoses Interstitial lung disease J84.9 Edema R60.9 Edema type: unspecified YSABEL (acute kidney injury) N17.9 Cardiomyopathy I42.9 Cardiomyopathy type: unspecified Hypertension I10 Hypertension type: essential hypertension Mitral regurgitation I34.0 Cardiac valve disease etiology: etiology unspecified Aortic stenosis I35.0 Cardiac valve disease etiology: etiology unspecified RBBB I45.10 DMII (diabetes mellitus, type 2) E11.22; N18.31; Z79.4 Chronic kidney disease stage: stage 3 (moderate) Chronic kidney disease stage 3 subtype: stage 3a (GFR 45-59) Diabetes mellitus complication detail: with chronic kidney disease Diabetes mellitus complication status: with kidney complications Diabetes mellitus skilled nursing insulin use: with oysterman use BPH (benign prostatic hyperplasia) N40.0 Lower urinary tract symptom presence: symptoms absent GERD (gastroesophageal reflux disease) K21.9 Esophagitis presence: esophagitis presence not specified (1) BPH (benign prostatic hyperplasia) Lower urinary tract symptom presence: symptoms absent Qualified Code(s): N40.0 - Benign prostatic hyperplasia without lower urinary tract symptoms (2) DMII (diabetes mellitus, type 2) Chronic kidney disease stage: stage 3 (moderate) Chronic kidney disease stage 3 subtype: stage 3a (GFR 45-59) Diabetes mellitus complication detail: with chronic kidney disease Diabetes mellitus complication status: with kidney complications Diabetes mellitus skilled nursing insulin use: with skilled nursing use Qualified Code(s): E11.22 - Type 2 diabetes mellitus with diabetic chronic kidney disease; N18.31 - Chronic kidney disease, stage 3a; Z79.4 - middle or intermediate school principal (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) use of insulin (3) Aortic stenosis Cardiac valve disease etiology: etiology unspecified Qualified Code(s): I35.0 - Nonrheumatic aortic (valve) stenosis (4) Edema Edema type: unspecified Qualified Code(s): R60.9 - Edema, unspecified (5) Mitral regurgitation Cardiac valve disease etiology: etiology unspecified Qualified Code(s): I34.0 - Nonrheumatic mitral (valve) insufficiency (6) GERD (gastroesophageal reflux disease) Esophagitis presence: esophagitis presence not specified Qualified Code(s): K21.9 - Gastro-esophageal reflux disease without esophagitis (7) Hypertension Hypertension type: essential hypertension Qualified Code(s): I10 - Essential (primary) hypertension (8) Cardiomyopathy Cardiomyopathy type: unspecified Qualified Code(s): I42.9 - Cardiomyopathy, unspecified
[2021-05-11 12:39] LABS: Appearance Urine Clear (Clear); Bacteria Urine Automated Negative (Negative); Bilirubin Urine Negative (Negative); Blood Urine Negative (Negative); Color Urine Yellow; Epithelial Cell Urine Auto 0-5 /lpf (0-5); Glucose Urine UA Negative (Negative); Ketones Urine Negative (Negative); Leukocyte Esterase Urine 2+ (Negative); Nitrite Urine Negative (Negative); Protein Urine Negative (Negative); RBC Urine Automated 0-4 /hpf (0-4); Specific Gravity Urine 1.008 (1.000-1.030); Urobilinogen Urine Negative (Negative)
--- NOTE | 2021-05-11 12:57 | Pulmonary Consultation ---
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 His biggest complaint currently is significant abdominal distention and abdominal wall edema. His lower extremity edema is significantly better from prior and his x-ray actually shows improvement in his infiltrates compared to previous. Unfortunately with aggressive diuresis in the outpatient setting, he has had a mild increase in his serum creatinine. Recommendations: 1. Interstitial lung disease: Would continue mycophenolate at current doses. No indication for prednisone at this point time. His lung disease appears to be responding. I have made referral for him to be evaluated at the ILD clinic at [facility] for second opinion to ensure were not missing anything. His se rological evaluation was unrevealing. He did demonstrate eosinophilia on a BAL in the differential diagnosis was hypersensitivity pneumonitis or potential allergic related lung disease. Again he has been responsive to immune suppression in the form of prednisone and mycophenolate up to this point. 2. YSABEL: Management per admitting hospitalist. May require nephrology consultation. Will check 24-hour urine for quantitative protein. Urinalysis was unrevealing. 3. Lower extremity edema: Significantly improved on current exam. Unfortunately he appears to have ascites on exam. Work-up per primary service. Consideration for repeat imaging including CT of the abdomen pelvis and or ultrasound with paracentesis may be appropriate. 4. Dyspnea: Multifactorial but again his lung disease appears to be improving. His abdominal distention may be causing some diaphragmatic compression of the lung. He also has known mitral valve disease so we will repeat the echocardiogram to evaluate for progression of his known mitral disease. Above recommendations and plan were discussed with the patient and with his son at bedside. We will continue to follow during his hospital course. Feel free to contact us with pulmonary questions. History of Present Illness History of Present Illness Asked by hospitalist to assist in management of this patient with shortness of breath and interstitial lung disease. I know this patient from the clinic. We have been managing his eosinophilic lung disease intermittently with steroids and most recently mycophenolate. I saw him in clinic few weeks ago. He had profound edema at that point time. We increased his diuretics. Was contacted by the patient and his son that he was experiencing increasing shortness of breath abdominal distention and decreased energy levels. Given the concern that the patient was failing outpatient therapy, he was advised to present to the emergency room. In the ER, he had a chest x-ray performed which actually shows improvement in the right upper lobe airspace opacities. His lower extremity edema is better however his white count is elevated and his kidney function is slightly worse. He is being admitted for additional evaluation and management. The patient complains of significant abdominal distention. His belly is fairly firm to palpation. He is having bowel movements. He denies nausea vomiting or diarrhea. No fevers chills or night sweats. He is not had any ill contacts. He states that his breathing is bad enough that he cannot really complete any of his activities of daily living. Allergies Allergy/AdvReac Type Severity Reaction Status Date / Time Sulfa (Sulfonamide Allergy Severe RASH, Verified 04/29/21 14:38 Antibiotics) HIVES, SWOLLEN MOUTH, THROAT SWELLING Penicillins Allergy Mild RASH, HIVES Verified 04/29/21 14:38 lisinopril Allergy Unknown lethargic Verified 04/29/21 14:38 Home Medications Medication Instructions Recorded Confirmed Type finasteride 5 mg tablet 5 mg PO HS tab 07/10/19 05/11/21 History allopurinol 100 mg PO QAM 07/30/19 05/11/21 History aspirin 81 mg PO HS 07/30/19 05/11/21 History rosuvastatin 5 mg PO HS 07/30/19 05/11/21 History terazosin 5 mg capsule 5 mg PO HS 01/15/20 05/11/21 History omeprazole 40 mg capsule,delayed 40 mg PO QAM 04/28/20 05/11/21 History release metformin 500 mg tablet 500 mg PO HS 07/23/20 05/11/21 History escitalopram oxalate 10 mg tablet 10 mg PO HS 11/02/20 05/11/21 History famotidine 40 mg tablet 40 mg PO HS tab 11/02/20 05/11/21 History amlodipine 5 mg PO QAM 11/20/20 05/11/21 History metoprolol succinate 50 mg PO HS 11/20/20 05/11/21 History alprazolam 0.5 mg tablet See Rx Instructions PO DAILY tab 01/31/21 05/11/21 History insulin degludec 100 unit/mL (3 20 unit SUBCUT QAM ml 01/31/21 05/11/21 History mL) subcutaneous pen insulin lispro 100 unit/mL 10 unit SUBCUT DAILY ml 01/31/21 05/11/21 History subcutaneous solution levothyroxine 50 mcg capsule 50 mcg PO DAILY 01/31/21 05/11/21 History prednisone 10 mg tablet 10 mg PO DAILY 01/31/21 05/11/21 History spironolactone 50 mg tablet 100 mg PO BID tab 01/31/21 05/11/21 History furosemide 40 mg tablet 40 mg PO BID #60 tab 03/25/21 05/11/21 Rx mycophenolate mofetil 250 mg 250 mg PO BID #120 cap 03/25/21 05/11/21 Rx capsule metolazone 2.5 mg tablet 2.5 mg PO DAILY #30 tab 04/29/21 05/11/21 Rx Patient History Medical History (Updated 05/11/21 @ 12:40 by CARMEL Briones) Accelerated idioventricular rhythm Anemia Anemia Anxiety Aortic stenosis Arthritis Benign prostatic hyperplasia Cardiomyopathy dx 07/2019 DMII (diabetes mellitus, type 2) Esophageal ulcer Essential hypertension Frequent PVCs GERD (gastroesophageal reflux disease) Gout History of colon polyps Hyperlipidemia Interstitial lung disease Mitral regurgitation Osteoarthritis Osteomyelitis of left foot 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 07/31/19 [place] Schatzki's ring Venous insufficiency Surgical History H/O foot surgery 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 TOE - 08/06/19 [facility] History of bilateral knee replacement History of cardiac cath in 1960s--no stents History of colonoscopy History of esophagogastroduodenoscopy (EGD) with dilation History of tonsillectomy and adenoidectomy History of wisdom tooth extraction S/P dilatation of esophageal stricture Family History Father Family history of diabetes mellitus Coronary heart disease Prostate cancer Uncle Coronary heart disease Other No family history of adverse response to anesthesia Social History Smoking Status: Never smoker Second Hand Exposure: No; Hx Alcohol Use: No Hx Substance Use: No Preferred Language: Pakistani Communication Ability: Effective Visual Impairment: No Limitations Hearing Ability: Normal Mine Shifter Required: No Beliefs That Will Affect Care: None marital status: Current Living Situation: Alone current occupational status: retired Feels Safe at Home: Yes Assistive Devices: Oxygen - Continuous Review of Systems Review of Systems: Please refer to admission H&P. No additions or deletions Physical Exam Constitutional: WD/WN, vitals as above Neck: trachea midline, no thyromegaly Respiratory: no respiratory distress and no labored breathing Auscultation: + crackles; no wheezes Patient becomes dyspneic with 3-4 sentences Cardiovascular: Rate/Rhythm: regular rate Heart Sounds: normal S1, normal S2 and + murmur Gastrointestinal (Abdomen): Inspection/Auscultation: + abdomen distended and + abdominal edema Percussion/Palpation: abdomen nontender and no guarding Musculoskeletal: Extremities: extremities normal to inspection Skin: no rashes, warm and dry Neurologic: Nonfocal exam Lymphatic: no cervical lymphadenopathy Results & Data Results & Data ([facility]) Vital Signs (Past 12 Hours) Vital Signs Temp Pulse Resp BP Pulse Ox 05/11/21 11:00 52 L 18 108/69 96 05/11/21 10:09 96 05/11/21 09:58 36.1 C L 60 22 130/82 98 Laboratory Results 05/11/21 10:25 05/11/21 10:25 Diagnostic Findings Chest x-ray independently reviewed. It actually demonstrates improvement compared to prior chest x-ray with regard to the interstitial infiltrates. Abdominal ultrasound 03/24/2021 showed no significant ascites. KUB performed today showed a nonspecific bowel pattern. PG Care Time/CCT Total # of Minutes Spent Total Time Spent with Patient: Total time spent is greater than 50% in coordination of care (as documented) at patient's floor/unit and/or counseling patient: Coding Level of Care Code 25530 Initial Inpt Care Lvl 3 Diagnoses Interstitial lung disease J84.[address] scan of lung R91.8 YSABEL (acute kidney injury) N17.9
[2021-05-11 13:22] LABS: Appearance Urine Clear (Clear); Bacteria Urine Automated Negative (Negative); Bilirubin Urine Negative (Negative); Blood Urine Negative (Negative); Cast Urine Automated 0 /lpf (0-5); Color Urine Yellow; Epithelial Cell Urine Auto 0-5 /lpf (0-5); Glucose Urine UA Negative (Negative); Ketones Urine Negative (Negative); Leukocyte Esterase Urine 1+ (Negative); Nitrite Urine Negative (Negative); Protein Urine Negative (Negative); RBC Urine Automated 0-4 /hpf (0-4); Specific Gravity Urine 1.007 (1.000-1.030); Urobilinogen Urine Negative (Negative)
[2021-05-11] MEDS ORDERED: GLUCOSE 10 TABS/TUBE PO PRN (14:21)
[2021-05-11] MEDS ORDERED: CARBOHYDRATES FOR HYPOGLYCEMIA PO PRN (14:21)
[2021-05-11] MEDS ORDERED: POLYETHYLENE (MIRALAX) 17 GM PACK PO PRN (14:21)
[2021-05-11] MEDS ORDERED: DEXTROSE 50% 50 ML SYRINGE IV PRN (14:21)
[2021-05-11] MEDS ORDERED: GLUCAGON FOR INJ 1 MG VIAL SQ PRN (14:21)
[2021-05-11] MEDS ORDERED: GLUCOSE 40% GEL 15 GM TUBE PO PRN (14:21)
[2021-05-11] MEDS ORDERED: ACETAMINOPHEN 325 MG TAB PO PRN (14:21)
[2021-05-11] MEDS: HEPARIN SOD 5,000 UNIT/0.5 ML VIAL SQ SCH ×2 (14:55→21:42)
[2021-05-11] MEDS: INSULIN ASPART 100 UNITS/ML 3 ML PEN SC SCH ×3 (14:56→21:41)
--- NOTE | 2021-05-11 16:01 | XCELERA ---
[id number]
--- NOTE | 2021-05-11 16:29 | Ultrasound Report ---
EXAMINATION: RENAL ULTRASOUND CLINICAL HISTORY: Acute renal insufficiency COMPARISON STUDY: FINDINGS: The right kidney measures 10 cm. The left kidney measures 11.7 cm. There is no evidence of hydronephrosis. There are no renal masses. Bilateral ureteral jets were visualized. There is a bladder base mass, likely secondary to a prominen t prostate. IMPRESSION : 1. Mild bilateral renal cortical thinning 2. No evidence of hydronephrosis 3. Bladder base mass likely secondary to an enlarged prostate ACT 112: Negative or not required by law. Electronically signed by: Isrrael Perez M.D. 05/11/2021 4:28 PM
[2021-05-11] MEDS ORDERED: SPIRONOLACTONE 100 MG TAB PO SCH (17:00)
[2021-05-11 19:06] LABS: BUN Creatinine Ratio 30.5 (10-20); Calcium 9.3 mg/dl (8.5-10.1); Creatinine Clr Calc Pharmacy 23.1 ml/min; Est GFR (African American) 24.7 ml/min; Est GFR (Non-African American) 21.3 ml/min; Potassium 4.8 mmol/L (3.5-5.1)
[2021-05-11] MEDS ORDERED: ALPRAZolam 0.5 MG TABLET PO SCH (21:00)
--- NOTE | 2021-05-11 21:12 | XRay Report ---
SINGLE VIEW CHEST CLINICAL HISTORY: Dyspnea. FINDINGS: An AP, portable, upright chest radiograph is compared to study performed earlier the same d ay 05/11/2021 and correlated with chest CT dated 02/18/2021. The examination is degraded by portable rich hnique and apical lordotic positioning. The heart is enlarged noting atherosclerotic calcification of the thoracic aorta. The pulmonary vasculature is noncongested. Chronic interstitial thickening is si milar to previous. There is mild elevation of right hemidiaphragm and bibasilar atelectasis. Mild rig ht upper lobe airspace opacities persist. No large pleural effusion is identified. No pneumothorax is seen. The skeletal structures are osteopenic. The bony thorax is grossly intact. IMPRESSION: 1. Cardiomegaly without radiographic evidence of congestive failure. 2. There are mild persistent right upper lobe airspace opacities, not significantly changed from nissa ier today. ACT 112: Negative or not required by law. Electronically signed by: Niraj Almeida M.D. 05/11/2021 9:11 PM
[2021-05-11] MEDS: TERAZOSIN HCL 5 MG CAP PO SCH (21:39)
[2021-05-11] MEDS: ESCITALOPRAM OXALATE 10 MG TAB PO SCH (21:40)
[2021-05-11] MEDS: METOPROLOL SUCC 50MG EXT REL TAB PO SCH (21:40)
[2021-05-11] MEDS: MYCOPHENOLATE MOFETIL 250 MG CAP PO SCH (21:40)
[2021-05-11] MEDS: FINASTERIDE 5 MG TAB PO SCH (21:40)
[2021-05-11] MEDS: ASPIRIN 81 MG ECTAB PO SCH (21:40)
[2021-05-11] MEDS: ROSUVASTATIN CALCIUM 5 MG TAB PO SCH (21:40)
[2021-05-11] MEDS: ALPRAZolam 0.25 MG TABLET PO SCH ×2 (21:41→21:48)
[2021-05-12] MEDS: LEVOTHYROXINE SODIUM 50 MCG TABLET PO SCH (06:44)
[2021-05-12] MEDS: HEPARIN SOD 5,000 UNIT/0.5 ML VIAL SQ SCH ×3 (06:44→20:38)
[2021-05-12 07:15] LABS: Basophils # (auto) 0.03 K/uL (0-0.2); Basophils % (auto) 0.3 %; Eosinophils # (auto) 0.13 K/uL (0-0.5); Eosinophils % (auto) 1.1 %; Hematocrit (blood only) 35.2 % (42-52); Hemoglobin 12.5 g/dL (14.0-18.0); Immature Granulocytes # (auto) 0.32 K/uL (0.00-0.02); Immature Granulocytes % (auto) 2.7 %; Lymphocytes # (auto) 2.44 K/uL (1.2-3.4); Lymphocytes % (auto) 20.5 %; Mean Corpuscular Hemoglobin 32.3 pg (25-34); Mean Corpuscular Hgb Conc 35.5 g/dL (32-36); Mean Platelet Volume 10.4 fL (7.4-10.4); Monocytes # (auto) 1.05 K/uL (0.11-0.59); Monocytes % (auto) 8.8 %; Neutrophils # (auto) 7.96 K/uL (1.4-6.5); Neutrophils % (auto) 66.6 %; Nucleated RBC # (auto) 0.02 K/uL (0-0); Nucleated RBC % (auto) 0.2 %; Platelet Count 274 K/uL (130-400); RDW Coefficient of Variation 13.3 % (11.5-14.5); RDW Standard Deviation 44.1 fL (36.4-46.3); Red Blood Count 3.87 M/uL (4.7-6.1); White Blood Count 11.93 K/uL (4.8-10.8)
[2021-05-12 07:51] LABS: BUN Creatinine Ratio 32.5 (10-20); Calcium 9.5 mg/dl (8.5-10.1); Creatinine Clr Calc Pharmacy 23.2 ml/min; Est GFR (African American) 27.7 ml/min; Est GFR (Non-African American) 23.9 ml/min; Magnesium 2.2 mg/dl (1.8-2.4); Potassium 4.1 mmol/L (3.5-5.1)
[2021-05-12] MEDS: amLODIPine BESYLATE 5 MG TAB PO SCH (07:54)
[2021-05-12] MEDS: PANTOprazole 40 MG TAB PO SCH (07:54)
[2021-05-12] MEDS: MYCOPHENOLATE MOFETIL 250 MG CAP PO SCH ×2 (07:55→20:46)
[2021-05-12] MEDS ORDERED: Nursing to Pharmacy Communication SCH (08:00)
[2021-05-12] MEDS: INSULIN ASPART 100 UNITS/ML 3 ML PEN SC SCH ×4 (08:00→20:37)
[2021-05-12] MEDS: INSULIN GLARGINE SOLOSTAR 100 UNITS/ML 3 ML PEN SC SCH (08:02)
[2021-05-12] MEDS: ALPRAZolam 0.5 MG TABLET PO SCH (08:18)
[2021-05-12] MEDS ORDERED: ALPRAZolam 0.25 MG TABLET PO SCH (09:00)
[2021-05-12] MEDS ORDERED: predniSONE 10 MG TABLET PO SCH (09:00)
--- NOTE | 2021-05-12 11:35 | Pulmonology Progress Note ---
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 His biggest complaint currently is significant abdominal distention and abdominal wall edema. His lower extremity edema is significantly better from prior and his x-ray actually shows improvement in his infiltrates compared to previous. Unfortunately with aggressive diuresis in the outpatient setting, he has had a mild increase in his serum creatinine. Recommendations: 1. Interstitial lung disease: Would continue mycophenolate at current doses. No indication for prednisone at this point time. His lung disease appears to be responding. I have made referral for him to be evaluated at the ILD clinic at [facility] for second opinion to ensure were not missing anything. His serolog ical evaluation was unrevealing. He did demonstrate eosinophilia on a BAL in the differential diagnosis was hypersensitivity pneumonitis or potential allergic related lung disease. Again he has been responsive to immune suppression in the form of prednisone and mycophenolate up to this point. He is doing well off steroids and do not see an indication for more aggressive intervention or adjustment in his medical course currently. 2. YSABEL: Urinalysis showed no proteinuria. Nephrology consultation pending. Unclear if the patient could have some component of abdominal compartment syndrome secondary to abdominal distention. See comments below. Adjustment of diuretics per nephrology. 3. Lower extremity edema: Significantly improved on current exam. Continue to follow 4. Dyspnea: Improved. 5. Abdominal distention: Management per primary service. He is not had a CT of the abdomen pelvis performed in quite some time and it may be reasonable to proceed with that. Will defer to primary service. Above recommendations and plan were discussed with the patient at bedside. We will continue to follow during his hospital course. Feel free to contact us with pulmonary questions. Admission and Anticipated Discharge Date Admission Date: May 11, 2021 Subjective Examined. He states he feels better today. He was evaluated by nephrology and formal consultation is pending. They felt that patient was likely slightly over diuresed. His abdominal distention is better but not resolved. He is not experiencing any nausea or vomiting or diarrhea. He is not had any recurrence of his lower extremity edema. He remains off oxygen. Review of Systems Review of Systems: All systems reviewed & are unremarkable except as noted in HPI & below Physical Exam Constitutional: WD/WN, vitals as above Neck: trachea midline, no thyromegaly Respiratory: no respiratory distress and no labored breathing Auscultation: + crackles; no wheezes Cardiovascular: Rate/Rhythm: regular rate Heart Sounds: normal S1, normal S2 and + murmur Gastrointestinal (Abdomen): Inspection/Auscultation: + abdomen distended and + abdominal edema Percussion/Palpation: abdomen nontender and no guarding Musculoskeletal: Extremities: extremities normal to inspection Skin: no rashes, warm and dry Lymphatic: no cervical lymphadenopathy Results & Data Results & Data ([facility]) Vital Signs (Past 12 Hours) Vital Signs Temp Pulse Pulse Resp BP Pulse Ox 05/12/21 11:25 36.4 C L 50 L 17 109/69 96 05/12/21 09:05 59 L 05/12/21 07:19 36.3 C L 61 18 103/67 97 05/12/21 03:13 36.6 C 70 18 111/65 94 05/11/21 23:48 36.6 C 71 16 103/65 96 Laboratory Results 05/12/21 06:55 05/12/21 06:55 Diagnostic Findings Echo reviewed. No significant valvular disease. No pulmonary hypertension. EF was normal. PG Care Time/CCT Total # of Minutes Spent Total Time Spent with Patient: Total time spent is greater than 50% in coordination of care (as documented) at patient's floor/unit and/or counseling patient: Coding Level of Care Code 20964 Subseq Hosp Care Lvl 2 Diagnoses Interstitial lung disease J84.[address] scan of lung R91.8 YSABEL (acute kidney injury) N17.9
[2021-05-12] MEDS ORDERED: SODIUM CHLORIDE 0.9% 1000ML 1,000 ML IV SCH (11:45)
--- NOTE | 2021-05-12 12:01 | Nephrology Consultation ---
Date of Consultation May 12, 2021 Assessment & Plan (1) YSABEL (acute kidney injury): * YSABEL related to intravascular volume contraction. Benign urine sediment, no evidence of acute GN. Renal US negative for obstruction * Patient is clinically volume contracted * Hold Furosemide & Spironolactone * Will order urine Na & Cr * Will provide 1 L 0.9NS IV * Monitor PRP (2) Chronic kidney disease, stage III (moderate): * Baseline Cr 1.3 with EGFR 49 cc/min (3) Hyponatremia: * Likely related to high ADH state * Will provide gentle hydration and monitor serum sodium (4) Interstitial lung disease: * Eosinophilic interstitial lung disease * Currently breathing comfortably flat in bed on RA * On MMF therapy History of Present Illness Reason for Consultation: YSABEL/CKD Attending Physician: Guido Mancia History of Present Illness Mr. So is an 81 year old white male who is seen at the request of Dr. Mares for evaluation of YSABEL/CKD. Medical records in the EMR were reviewed today and are summarized as follows: Mr. So has stage III CKD w/ baseline Cr 1.3 and EGFR 49 cc/min. Urine sediment this hospitalization is acellular. Urinalysis is negative for protein. 05/02 Renal US revealed normal size kidneys w/ bilateral cortical scarring. His renal impairment is on the basis of microvascular disease. Mr. So's medical history is also significant for eosinophilic interstitial lung disease, anemia, BPH, AODM, gout, GERD. He is currently being transitioned from Prednisone to MMF for management of his ILD. Over the last couple of weeks, Mr. So reports progressive abdominal distention and LE swelling. Upon admission to the hospital, echocardiogram revealed LVEF 55 - 60%, mod LVH, mildly reduced RV function, no significant valvular abnormality. IV Furosemide was provided and patient reports brisk diuresis (net - 925 cc since admission). LE swelling has resolved and abdominal distention is symptomatically improved. Cr has risen from 1.3 to 2.65. Allergies Allergy/AdvReac Type Severity Reaction Status Date / Time Sulfa (Sulfonamide Allergy Severe RASH, Verified 04/29/21 14:38 Antibiotics) HIVES, SWOLLEN MOUTH, THROAT SWELLING Penicillins Allergy Mild RASH, HIVES Verified 04/29/21 14:38 lisinopril Allergy Unknown lethargic Verified 04/29/21 14:38 Home Medications Medication Instructions Recorded Confirmed Type finasteride 5 mg tablet 5 mg PO HS tab 07/10/19 05/11/21 History allopurinol 100 mg PO QAM 07/30/19 05/11/21 History aspirin 81 mg PO HS 07/30/19 05/11/21 History rosuvastatin 5 mg PO HS 07/30/19 05/11/21 History terazosin 5 mg capsule 5 mg PO HS 01/15/20 05/11/21 History omeprazole 40 mg capsule,delayed 40 mg PO QAM 04/28/20 05/11/21 History release metformin 500 mg tablet 500 mg PO HS 07/23/20 05/11/21 History escitalopram oxalate 10 mg tablet 10 mg PO HS 11/02/20 05/11/21 History famotidine 40 mg tablet 40 mg PO HS tab 11/02/20 05/11/21 History amlodipine 5 mg PO QAM 11/20/20 05/11/21 History metoprolol succinate 50 mg PO HS 11/20/20 05/11/21 History alprazolam 0.5 mg tablet See Rx Instructions PO DAILY tab 01/31/21 05/11/21 History insulin degludec 100 unit/mL (3 20 unit SUBCUT QAM ml 01/31/21 05/11/21 History mL) subcutaneous pen insulin lispro 100 unit/mL 10 unit SUBCUT DAILY ml 01/31/21 05/11/21 History subcutaneous solution levothyroxine 50 mcg capsule 50 mcg PO DAILY 01/31/21 05/11/21 History prednisone 10 mg tablet 10 mg PO DAILY 01/31/21 05/11/21 History spironolactone 50 mg tablet 100 mg PO BID tab 01/31/21 05/11/21 History furosemide 40 mg tablet 40 mg PO BID #60 tab 03/25/21 05/11/21 Rx mycophenolate mofetil 250 mg 250 mg PO BID #120 cap 03/25/21 05/11/21 Rx capsule metolazone 2.5 mg tablet 2.5 mg PO DAILY #30 tab 04/29/21 05/11/21 Rx Patient History Medical History Accelerated idioventricular rhythm Anemia Anemia Anxiety Aortic stenosis Arthritis Benign prostatic hyperplasia Cardiomyopathy dx 07/2019 DMII (diabetes mellitus, type 2) Esophageal ulcer Essential hypertension Frequent PVCs GERD (gastroesophageal reflux disease) Gout History of colon polyps Hyperlipidemia Interstitial lung disease Mitral regurgitation Osteoarthritis Osteomyelitis of left foot 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 07/31/19 [place] Schatzki's ring Venous insufficiency Surgical History H/O foot surgery 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 TOE - 08/06/19 [facility] History of bilateral knee replacement History of cardiac cath in 1960s--no stents History of colonoscopy History of esophagogastroduodenoscopy (EGD) with dilation History of tonsillectomy and adenoidectomy History of wisdom tooth extraction S/P dilatation of esophageal stricture Family History Father Family history of diabetes mellitus Coronary heart disease Prostate cancer Uncle Coronary heart disease Other No family history of adverse response to anesthesia Social History Smoking Status: Never smoker Second Hand Exposure: No; Hx Alcohol Use: No Hx Substance Use: No Preferred Language: Divehi Communication Ability: Effective Visual Impairment: No Limitations Hearing Ability: Normal Screen Cleaner Required: No Beliefs That Will Affect Care: None marital status: Current Living Situation: Alone current occupational status: retired Feels Safe at Home: Yes Assistive Devices: None Review of Systems Constitutional: no fever Eyes: no problem reported Ear, Nose, Mouth, Throat: no problem reported Respiratory: no dyspnea Cardiovascular: no chest pain Gastrointestinal: + abdominal pain; no nausea and no diarrhea/loose stools Genitourinary: no dysuria, no urinary hesitancy and no hematuria Musculoskeletal: no back pain Integumentary: no rash Neurologic: no falls and no confusion Physical Exam Constitutional: not in distress Eyes: PERRL, conjunctivae normal, anicteric sclerae ENMT: external ear and nose normal, oropharynx normal Neck: trachea midline, no thyromegaly Respiratory: normal respiratory effort, lungs clear to auscultation Cardiovascular: RRR, no murmur, no edema Gastrointestinal (Abdomen): Inspection/Auscultation: + abdomen distended Percussion/Palpation: abdomen soft; abdomen nontender, no guarding, no dullness to percussion and not tympanic to percussion Musculoskeletal: Extremities: no cyanosis Skin: no rashes, warm and dry Neurologic: awake; not confused Results & Data ([facility]) Vital Signs (Past 12 Hours) Vital Signs Temp Pulse Pulse Resp BP Pulse Ox 05/12/21 11:25 36.4 C L 50 L 17 109/69 96 05/12/21 09:05 59 L 05/12/21 07:19 36.3 C L 61 18 103/67 97 05/12/21 03:13 36.6 C 70 18 111/65 94 05/11/21 23:48 36.6 C 71 16 103/65 96 Laboratory Tests 05/12/21 05/12/21 06:55 06:55 WBC 11.93 H Hgb 12.5 L Hct 35.2 L Sodium 128 L Potassium 4.1 Chloride 97 L Carbon Dioxide 23 BUN 78 H Creatinine 2.41 H Glucose 137 H Laboratory Tests 05/11/21 12:58 Urine Color Yellow Urine Appearance Clear Urine pH 5.0 Ur Specific Pickett 1.007 Urine Protein Negative Urine Glucose (UA) Negative Urine Blood Negative Urine RBC (Auto) 0-4 05/11/21 Renal US: The right kidney measures 10 cm. The left kidney measures 11.7 cm. There is no evidence of hydronephrosis. There are no renal masses. Bilateral ureteral jets were visualized. There is a bladder base mass, likely secondary to a prominent prostate. 05/11/21 CXR: The heart is enlarged noting atherosclerotic calcification of the thoracic aorta. The pulmonary vasculature is noncongested. Chronic interstitial thickening is similar to previous. There is mild elevation of right hemidiaphragm and bibasilar atelectasis. Mild right upper lobe airspace opacities persist. No large pleural effusion is identified. No pneumothorax is seen. The skeletal structures are osteopenic. The bony thorax is grossly intact. PG Care Time/CCT Total # of Minutes Spent Total Time Spent with Patient: Total time spent is greater than 50% in coordination of care (as documented) at patient's floor/unit and/or counseling patient: Coding Level of Care Code 41318 Inpt Consult Level 5 Diagnoses YSABEL (acute kidney injury) N17.9 Chronic kidney disease, stage III (moderate) N18.30 Hyponatremia E87.1 Interstitial lung disease J84.9
--- NOTE | 2021-05-12 14:00 | Electrocardiogram Report ---
Test Reason : Blood Pressure : / mmHG Vent. Rate : 055 BPM Atrial Rate : 055 BPM P-R Int : 142 ms QRS Dur : 150 ms QT Int : 462 ms P-R-T Axes : 020 016 007 degrees QTc Int : 441 ms Sinus bradycardia with sinus arrhythmia Right bundle branch block Abnormal ECG When compared with ECG of 20-NOV-2020 13:16, Premature ventricular complexes are no longer Present Right bundle branch block is now Present Confirmed by Luis Dunn ([id number]) on 05/12/2021 1:59:40 PM Referred By: Kofi Mares Confirmed By:Luis Dunn
[2021-05-12 14:34] LABS: Creatinine Urine Random 55.7 mg/dl
[2021-05-12] MEDS: TERAZOSIN HCL 5 MG CAP PO SCH (20:38)
[2021-05-12] MEDS: ASPIRIN 81 MG ECTAB PO SCH (20:38)
[2021-05-12] MEDS: ESCITALOPRAM OXALATE 10 MG TAB PO SCH (20:38)
[2021-05-12] MEDS: ROSUVASTATIN CALCIUM 5 MG TAB PO SCH (20:38)
[2021-05-12] MEDS: FINASTERIDE 5 MG TAB PO SCH (20:38)
[2021-05-12] MEDS: METOPROLOL SUCC 50MG EXT REL TAB PO SCH (20:47)
--- NOTE | 2021-05-12 21:43 | Hospitalist Progress Note ---
Date of Service May 12, 2021 Assessment & Plan (1) Interstitial lung disease: As per HPI, increase in dyspnea with increase in peripheral edema - Continue CellCept - prednisone held-- appreciate pulmonary recommendations. Watch for adrenal crisis as has been on prednisone since 07/2020 - His WBC are at his baseline with chronic steroids - PFT recent with decrease in TLC and DLCO - Oxygen PRN if needed - Patient currently appears to be volume contracted. Will hold lasix and spirinolactone. (2) Edema: Multifactorial with ILD, decrease response to diuretics, cardiomyopathy - improved, however, he appears volume contracted. (3) YSABEL (acute kidney injury): YSABEL type II on CKD III - Increase in BUN and [employer]- pre-renal appearing at this time - YSABEL appears to have worsened with diuretics. (4) Cardiomyopathy: As above - ECHO for evaluation of valve and RVSP (5) Hypertension: Continue with amlodipine, metoprolol, spironolactone, Terazosin (6) Mitral regurgitation: Stable as above- diurese (7) Aortic stenosis: As above, follow with diuresing (8) RBBB: New compared to previous with incomplete - ECHO likely component of ILD and elevated RSVP (9) DMII (diabetes mellitus, type 2): On Tresiba at home- formulary equivalent- pharmacy to adjust - Aspart sliding scale CF 30 with carb ratio 1:20 - hypoglycemic protocol ordered (10) BPH (benign prostatic hyperplasia): No LUTS feels as he is emptying his bladder completely - bladder scan now evaluate for retention (11) GERD (gastroesophageal reflux disease): Continue PPI DVT prophy-heparin SQ Dispo-admit to PCU Admission and Anticipated Discharge Date Admission Date: May 11, 2021 Subjective 81 yo male reports feeling better. Not at baseline. Review of Systems Review of Systems: All systems reviewed & are unremarkable except as noted in HPI & below Physical Exam Physical Exam: General: awake, alert, no apparent distress Head: Normocephalic, atraumatic ENT: PERRL, EOMI, no pharyngeal exudate, mucous membranes moist Neuro: AAO x 3, speech clear and appropriate, strength intact bilaterally 5/5, sensation intact and equal all extremities and dermatomes, no pronator drift Chest: equal rise and fall of the chest, no accessory muscle use, no heaves or thrills, good air movement throughout, on room air, Cardiac: Regular rate and rhythm, telemetry reviewed-NSR with PVC, skin warm dry, cap refill <3 seconds, peripheral pulses +2 no JVD, systolic murmur best at LSB, no edema GI: NABS x 4 quadrants, distended and taught but nontender to palpation, no rebound, guarding or tenderness : Spontaneously voiding, no pain, no CVA tenderness Extremities: Normal inspection, no peripheral edema or erythema, calfs nontender to palpation Psych: Normal mood and affect Skin: no rash or erythema Results & Data Results & Data ([facility]) Vital Signs (Past 12 Hours) Vital Signs Temp Pulse Pulse Resp BP Pulse Ox 05/12/21 19:57 36.5 C 54 L 18 119/72 96 05/12/21 16:58 54 L 05/12/21 15:49 36.4 C L 58 L 19 159/68 H 94 05/12/21 11:25 36.4 C L 50 L 17 109/69 96 PG Care Time/CCT Total # of Minutes Spent Total Time Spent with Patient: Total time spent is greater than 50% in coordination of care (as documented) at patient's floor/unit and/or counseling patient: Coding Level of Care Code 07727 Subseq Hosp Care Lvl 2 Diagnoses Interstitial lung disease J84.9 Edema R60.9 Edema type: unspecified YSABEL (acute kidney injury) N17.9 Cardiomyopathy I42.9 Cardiomyopathy type: unspecified Hypertension I10 Hypertension type: essential hypertension Mitral regurgitation I34.0 Cardiac valve disease etiology: etiology unspecified Aortic stenosis I35.0 Cardiac valve disease etiology: etiology unspecified RBBB I45.10 DMII (diabetes mellitus, type 2) E11.22; N18.31; Z79.4 Chronic kidney disease stage: stage 3 (moderate) Chronic kidney disease stage 3 subtype: stage 3a (GFR 45-59) Diabetes mellitus complication detail: with chronic kidney disease Diabetes mellitus complication status: with kidney complications Diabetes mellitus snf insulin use: with rodent exterminator use BPH (benign prostatic hyperplasia) N40.0 Lower urinary tract symptom presence: symptoms absent GERD (gastroesophageal reflux disease) K21.9 Esophagitis presence: esophagitis presence not specified Time Spent (min) 25 (1) BPH (benign prostatic hyperplasia) Lower urinary tract symptom presence: symptoms absent Qualified Code(s): N40.0 - Benign prostatic hyperplasia without lower urinary tract symptoms (2) DMII (diabetes mellitus, type 2) Chronic kidney disease stage: stage 3 (moderate) Chronic kidney disease stage 3 subtype: stage 3a (GFR 45-59) Diabetes mellitus complication detail: with chronic kidney disease Diabetes mellitus complication status: with kidney complications Diabetes mellitus rodent exterminator insulin use: with rodent exterminator use Qualified Code(s): E11.22 - Type 2 diabetes mellitus with diabetic chronic kidney disease; N18.31 - Chronic kidney disease, stage 3a; Z79.4 - nursing home (current) use of insulin (3) Aortic stenosis Cardiac valve disease etiology: etiology unspecified Qualified Code(s): I35.0 - Nonrheumatic aortic (valve) stenosis (4) Edema Edema type: unspecified Qualified Code(s): R60.9 - Edema, unspecified (5) Mitral regurgitation Cardiac valve disease etiology: etiology unspecified Qualified Code(s): I34.0 - Nonrheumatic mitral (valve) insufficiency (6) GERD (gastroesophageal reflux disease) Esophagitis presence: esophagitis presence not specified Qualified Code(s): K21.9 - Gastro-esophageal reflux disease without esophagitis (7) Hypertension Hypertension type: essential hypertension Qualified Code(s): I10 - Essential (primary) hypertension (8) Cardiomyopathy Cardiomyopathy type: unspecified Qualified Code(s): I42.9 - Cardiomyopathy, unspecified
[2021-05-12] MEDS ORDERED: MELATONIN 3 MG TAB PO PRN (22:06)
[2021-05-13] MEDS: LEVOTHYROXINE SODIUM 50 MCG TABLET PO SCH (05:44)
[2021-05-13] MEDS: HEPARIN SOD 5,000 UNIT/0.5 ML VIAL SQ SCH ×3 (05:45→21:01)
[2021-05-13] MEDS ORDERED: COUGH DROP (SUGAR FREE) LOZ 24 LOZ/1 BOX BUCCAL PRN (06:27)
[2021-05-13 06:53] LABS: Basophils # (auto) 0.03 K/uL (0-0.2); Basophils % (auto) 0.2 %; Eosinophils # (auto) 0.15 K/uL (0-0.5); Eosinophils % (auto) 1.1 %; Hematocrit (blood only) 35.4 % (42-52); Hemoglobin 12.4 g/dL (14.0-18.0); Immature Granulocytes # (auto) 0.27 K/uL (0.00-0.02); Immature Granulocytes % (auto) 2.1 %; Lymphocytes # (auto) 1.46 K/uL (1.2-3.4); Lymphocytes % (auto) 11.1 %; Mean Corpuscular Hemoglobin 32.2 pg (25-34); Mean Corpuscular Volume 91.9 fL (80-100); Mean Platelet Volume 10.6 fL (7.4-10.4); Monocytes # (auto) 1.27 K/uL (0.11-0.59); Monocytes % (auto) 9.7 %; Neutrophils # (auto) 9.93 K/uL (1.4-6.5); Neutrophils % (auto) 75.8 %; Platelet Count 264 K/uL (130-400); RDW Coefficient of Variation 13.4 % (11.5-14.5); RDW Standard Deviation 44.5 fL (36.4-46.3); Red Blood Count 3.85 M/uL (4.7-6.1); White Blood Count 13.11 K/uL (4.8-10.8)
[2021-05-13 07:31] LABS: BUN Creatinine Ratio 31.1 (10-20); Calcium 9.5 mg/dl (8.5-10.1); Creatinine Clr Calc Pharmacy 28.4 ml/min; Est GFR (African American) 35.4 ml/min; Est GFR (Non-African American) 30.5 ml/min; Magnesium 2.1 mg/dl (1.8-2.4); Potassium 4.4 mmol/L (3.5-5.1)
[2021-05-13] MEDS: PANTOprazole 40 MG TAB PO SCH (07:56)
[2021-05-13] MEDS: MYCOPHENOLATE MOFETIL 250 MG CAP PO SCH ×2 (07:56→21:00)
[2021-05-13] MEDS: amLODIPine BESYLATE 5 MG TAB PO SCH (07:57)
[2021-05-13] MEDS: ALPRAZolam 0.5 MG TABLET PO SCH (07:59)
[2021-05-13] MEDS: INSULIN ASPART 100 UNITS/ML 3 ML PEN SC SCH ×4 (08:01→21:02)
[2021-05-13] MEDS: INSULIN GLARGINE SOLOSTAR 100 UNITS/ML 3 ML PEN SC SCH (08:02)
--- NOTE | 2021-05-13 10:13 | Nephrology Progress Note ---
Date of Service May 13, 2021 Assessment & Plan (1) YSABEL (acute kidney injury): * YSABEL related to intravascular volume contraction. Benign urine sediment, no evidence of acute GN. Renal US 05/11 negative for obstruction * FeNa 1% * Creatinine has improved from 2.65 to 1.97 following 1L 0.9NS * Hold IVF and encourage oral hydration * Hold Furosemide & Spironolactone * Monitor PRP (2) Chronic kidney disease, stage III (moderate): * Baseline Cr 1.3 with EGFR 49 cc/min (3) Hyponatremia: * Likely related to high ADH state. * Improved w/ IV hydration (4) Interstitial lung disease: * Eosinophilic interstitial lung disease * On MMF therapy Admission and Anticipated Discharge Date Admission Date: May 11, 2021 Subjective Mr. So was seen & examined in his hospital room this morning. He is breathing comfortably flat in bed on RA. However he reports FONTANEZ. Review of Systems Constitutional: no fever Eyes: no problem reported Ear, Nose, Mouth, Throat: no problem reported Respiratory: no dyspnea Cardiovascular: no chest pain Gastrointestinal: + abdominal pain; no nausea and no diarrhea/loose stools Genitourinary: no dysuria, no urinary hesitancy and no hematuria Musculoskeletal: no back pain Integumentary: no rash Neurologic: no falls and no confusion Physical Exam Constitutional: not in distress Eyes: PERRL, conjunctivae normal, anicteric sclerae ENMT: external ear and nose normal, oropharynx normal Neck: trachea midline, no thyromegaly Respiratory: normal respiratory effort, lungs clear to auscultation Cardiovascular: Rate/Rhythm: regular rate and regular rhythm Heart Sounds: no murmur Extremities: + edema (trace pretibial edema) Gastrointestinal (Abdomen): Inspection/Auscultation: + abdomen distended Percussion/Palpation: abdomen soft; abdomen nontender, no guarding, no dullness to percussion and not tympanic to percussion Musculoskeletal: Extremities: no cyanosis Skin: no rashes, warm and dry Neurologic: awake; not confused Results & Data ([facility]) Vital Signs (Past 12 Hours) Vital Signs Temp Pulse Pulse Resp BP Pulse Ox 05/13/21 08:17 36.4 C L 76 18 131/77 95 05/13/21 03:37 36.4 C L 69 20 146/83 H 95 05/13/21 00:54 63 05/13/21 00:37 36.5 C 63 17 119/70 96 Laboratory Tests 05/12/21 05/13/21 05/13/21 14:00 06:19 06:19 WBC 13.11 H Hgb 12.4 L Hct 35.4 L Plt Count 264 Sodium 130 L Potassium 4.4 Chloride 101 Carbon Dioxide 22 BUN 61 H Creatinine 1.97 H D Glucose 155 H Calcium 9.5 Magnesium 2.1 Ur Random Creatinine 55.7 Ur Random Sodium 32 PG Care Time/CCT Total # of Minutes Spent Total Time Spent with Patient: Total time spent is greater than 50% in coordination of care (as documented) at patient's floor/unit and/or counseling patient: Coding Level of Care Code 18102 Subseq Hosp Care Lvl 3 Diagnoses YSABEL (acute kidney injury) N17.9 Chronic kidney disease, stage III (moderate) N18.30 Hyponatremia E87.1 Interstitial lung disease J84.9
--- NOTE | 2021-05-13 12:38 | Pulmonology Progress Note ---
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 His biggest complaint currently is significant abdominal distention and abdominal wall edema. His lower extremity edema is significantly better from prior and his x-ray actually shows improvement in his infiltrates compared to previous. Unfortunately with aggressive diuresis in the outpatient setting, he has had a mild increase in his serum creatinine. Recommendations: 1. Interstitial lung disease: Would continue mycophenolate at current doses. 2. YSABEL: Per nephrology. Numbers are better today. We will continue to reassess need for diuretics on a regular basis to avoid reaccumulation of pleural fluid 3. Lower extremity edema: Significantly improved on current exam. Continue to follow 4. Dyspnea: Stable. His complaints appear to center on abdominal bloating and distention. See comments below.. 5. Abdominal distention: This is not really changed. He is not had imaging performed in some time. Will request CT of the abdomen and pelvis with oral contrast. Hold IV contrast given his kidney function. Difficult to assess whether or not ascites is present however ultrasounds in the past have not demonstrated any significant fluid. His abdominal distention and bloating are likely compromising diaphragmatic excursion and contributing to his shortness of breath. Above recommendations and plan were discussed with the patient at bedside. We will continue to follow during his hospital course. Feel free to contact us with pulmonary questions. Admission and Anticipated Discharge Date Admission Date: May 11, 2021 Subjective Patient seen and examined. He sitting up in a chair eating lunch. He reports his breathing is about the same. He is not noted any significant lower extremity edema. No chest pain or palpitations. No fever chills or night sweats. He is not coughing or expectorating phlegm. He does feel dyspneic with ambulation. His abdominal distention has not really changed from prior. Review of Systems Review of Systems: All systems reviewed & are unremarkable except as noted in HPI & below Physical Exam Constitutional: WD/WN, vitals as above Neck: trachea midline, no thyromegaly Respiratory: no respiratory distress and no labored breathing Auscultation: + crackles; no wheezes Cardiovascular: Rate/Rhythm: regular rate Heart Sounds: normal S1, normal S2 and + murmur Gastrointestinal (Abdomen): Inspection/Auscultation: + abdomen distended and + abdominal edema Percussion/Palpation: abdomen nontender and no guarding Musculoskeletal: Extremities: extremities normal to inspection Skin: no rashes, warm and dry Lymphatic: no cervical lymphadenopathy Results & Data Results & Data ([facility]) Vital Signs (Past 12 Hours) Vital Signs Temp Pulse Pulse Resp BP Pulse Ox 05/13/21 11:51 36.8 C 83 20 128/81 97 05/13/21 08:17 36.4 C L 76 18 131/77 95 05/13/21 03:37 36.4 C L 69 20 146/83 H 95 05/13/21 00:54 63 05/13/21 00:37 36.5 C 63 17 119/70 96 Laboratory Results 05/13/21 06:19 05/13/21 06:19 Diagnostic Findings No new imaging PG Care Time/CCT Total # of Minutes Spent Total Time Spent with Patient: Total time spent is greater than 50% in coordination of care (as documented) at patient's floor/unit and/or counseling patient: Coding Level of Care Code 77707 Subseq Hosp Care Lvl 3 Diagnoses Interstitial lung disease J84.[address] scan of lung R91.8 YSABEL (acute kidney injury) N17.9 Time Spent (min) 35
--- NOTE | 2021-05-13 15:16 | CT Scan Report ---
CT abd pelvis oral con only CLINICAL HISTORY: abd distension COMPARISON STUDY: May 2017 FINDINGS: The patient was scanned following administration of dilute oral contrast. No intravenous contrast was Mr. A dose reduction technique was utilized according the principles of ALARA. There are basilar atelectatic changes with subpleural reticulation. There is minimal bronchiectatic c hange No hepatic masses are visualized in this noncontrast study. No gallbladder abnormalities are visualized. No splenic masses are visualized. No pancreatic masses are visualized. No adrenal masses are visualized. No renal, ureteral, or bladder calculi are visualized. There is pandiverticulosis. There is no evidence of acute diverticulitis. The appendix appears normal. There is no ascites. There is no free air. There is abundance of intraperitoneal fat. There is no evidence of abdominal aortic aneurysm. There is no evidence of pathologic adenopathy. The prostate is enlarged and contains calcifications. No destructive skeletal lesions are visualized IMPRESSION: 1. No acute intra-abdominal or pelvic findings 2. Normal appendix 3. Diverticulosis. No evidence of acute diverticulitis 4. No renal, ureteral, or bladder calculi identified 5. Abundant intraperitoneal fat, which may explain the patient's reported abdominal distention ACT 112: Negative or not required by law. Electronically signed by: Isrrael Perez M.D. 05/13/2021 3:14 PM
[2021-05-13] MEDS ORDERED: diphenhydrAMINE Capsule 25 MG CAP PO PRN (18:29)
[2021-05-13] MEDS: ASPIRIN 81 MG ECTAB PO SCH (20:56)
[2021-05-13] MEDS: ROSUVASTATIN CALCIUM 5 MG TAB PO SCH (20:57)
[2021-05-13] MEDS: TERAZOSIN HCL 5 MG CAP PO SCH (20:57)
[2021-05-13] MEDS: METOPROLOL SUCC 50MG EXT REL TAB PO SCH (20:58)
[2021-05-13] MEDS: ESCITALOPRAM OXALATE 10 MG TAB PO SCH (20:59)
[2021-05-13] MEDS: FINASTERIDE 5 MG TAB PO SCH (20:59)
--- NOTE | 2021-05-13 22:20 | Hospitalist Progress Note ---
Date of Service May 13, 2021 Assessment & Plan (1) Interstitial lung disease: As per HPI, increase in dyspnea with increase in peripheral edema - Continue CellCept - prednisone held-- appreciate pulmonary recommendations. Watch for adrenal crisis as has been on prednisone since 07/2020 - His WBC are at his baseline with chronic steroids - PFT recent with decrease in TLC and DLCO - Appreciate input from pulmonary. (2) Edema: Multifactorial with ILD, decrease response to diuretics, cardiomyopathy - improved, however, he appears volume contracted. 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 will continue to hold diuretics. (4) Cardiomyopathy: As above - ECHO for evaluation of valve and RVSP (5) Hypertension: Continue with amlodipine, metoprolol, spironolactone, Terazosin (6) Mitral regurgitation: Stable as above- diurese (7) Aortic stenosis: As above, follow with diuresing (8) RBBB: New compared to previous with incomplete - ECHO likely component of ILD and elevated RSVP (9) DMII (diabetes mellitus, type 2): On Tresiba at home- formulary equivalent- pharmacy to adjust - Aspart sliding scale CF 30 with carb ratio 1:20 - hypoglycemic protocol ordered (10) BPH (benign prostatic hyperplasia): No LUTS feels as he is emptying his bladder completely - bladder scan now evaluate for retention (11) GERD (gastroesophageal reflux disease): Continue PPI DVT prophy-heparin SQ Dispo-admit to PCU Admission and Anticipated Discharge Date Admission Date: May 11, 2021 Subjective Patient reports feeling a little winded today. His son is at bedside. I answered all of there quedstions. Review of Systems Review of Systems: All systems reviewed & are unremarkable except as noted in HPI & below Physical Exam Physical Exam: General: awake, alert, no apparent distress Head: Normocephalic, atraumatic ENT: PERRL, EOMI, no pharyngeal exudate, mucous membranes moist Neuro: AAO x 3, speech clear and appropriate Chest: equal rise and fall of the chest, no accessory muscle use, no heaves or thrills, good air movement throughout, on room air, Cardiac: Regular rate and rhythm GI: NABS x 4 quadrants, distended and taught but nontender to palpation, no rebound, guarding or tenderness : Spontaneously voiding, no pain, no CVA tenderness Extremities: Normal inspection, no peripheral edema or erythema, calfs nontender to palpation Psych: Normal mood and affect Skin: no rash or erythema Results & Data Results & Data ([facility]) Vital Signs (Past 12 Hours) Vital Signs Temp Pulse Resp BP Pulse Ox 05/13/21 19:22 36.6 C 75 20 120/73 95 05/13/21 16:02 36.5 C 68 18 132/79 96 05/13/21 11:51 36.8 C 83 20 128/81 97 PG Care Time/CCT Total # of Minutes Spent Total Time Spent with Patient: Total time spent is greater than 50% in coordination of care (as documented) at patient's floor/unit and/or counseling patient: Coding Level of Care Code 28744 Subseq Hosp Care Lvl 2 Diagnoses Interstitial lung disease J84.9 Edema R60.9 Edema type: unspecified YSABEL (acute kidney injury) N17.9 Cardiomyopathy I42.9 Cardiomyopathy type: unspecified Hypertension I10 Hypertension type: essential hypertension Mitral regurgitation I34.0 Cardiac valve disease etiology: etiology unspecified Aortic stenosis I35.0 Cardiac valve disease etiology: etiology unspecified RBBB I45.10 DMII (diabetes mellitus, type 2) E11.22; N18.31; Z79.4 Diabetes mellitus assisted insulin use: with assisted use Diabetes mellitus complication status: with kidney complications Diabetes mellitus complication detail: with chronic kidney disease Chronic kidney disease stage: stage 3 (moderate) Chronic kidney disease stage 3 subtype: stage 3a (GFR 45-59) BPH (benign prostatic hyperplasia) N40.0 Lower urinary tract symptom presence: symptoms absent GERD (gastroesophageal reflux disease) K21.9 Esophagitis presence: esophagitis presence not specified Time Spent (min) 25 (1) Edema Edema type: unspecified Qualified Code(s): R60.9 - Edema, unspecified (2) Cardiomyopathy Cardiomyopathy type: unspecified Qualified Code(s): I42.9 - Cardiomyopathy, unspecified (3) Hypertension Hypertension type: essential hypertension Qualified Code(s): I10 - Essential (primary) hypertension (4) Mitral regurgitation Cardiac valve disease etiology: etiology unspecified Qualified Code(s): I34.0 - Nonrheumatic mitral (valve) insufficiency (5) Aortic stenosis Cardiac valve disease etiology: etiology unspecified Qualified Code(s): I35.0 - Nonrheumatic aortic (valve) stenosis (6) DMII (diabetes mellitus, type 2) Diabetes mellitus assisted insulin use: with supervisor intermediates use Diabetes mellitus complication status: with kidney complications Diabetes mellitus complication detail: with chronic kidney disease Chronic kidney disease stage: stage 3 (moderate) Chronic kidney disease stage 3 subtype: stage 3a (GFR 45-59) Qualified Code(s): E11.22 - Type 2 diabetes mellitus with diabetic chronic kidney disease; N18.31 - Chronic kidney disease, stage 3a; Z79.4 - detention (current) use of insulin (7) BPH (benign prostatic hyperplasia) Lower urinary tract symptom presence: symptoms absent Qualified Code(s): N40.0 - Benign prostatic hyperplasia without lower urinary tract symptoms (8) GERD (gastroesophageal reflux disease) Esophagitis presence: esophagitis presence not specified Qualified Code(s): K21.9 - Gastro-esophageal reflux disease without esophagitis
[2021-05-14] MEDS: LEVOTHYROXINE SODIUM 50 MCG TABLET PO SCH (05:55)
[2021-05-14] MEDS: HEPARIN SOD 5,000 UNIT/0.5 ML VIAL SQ SCH ×2 (05:56→14:59)
[2021-05-14 08:17] LABS: Basophils # (auto) 0.03 K/uL (0-0.2); Basophils % (auto) 0.3 %; Eosinophils # (auto) 0.09 K/uL (0-0.5); Eosinophils % (auto) 0.8 %; Hematocrit (blood only) 34.4 % (42-52); Immature Granulocytes # (auto) 0.21 K/uL (0.00-0.02); Immature Granulocytes % (auto) 1.9 %; Lymphocytes # (auto) 1.13 K/uL (1.2-3.4); Mean Corpuscular Hemoglobin 32.5 pg (25-34); Mean Corpuscular Hgb Conc 34.9 g/dL (32-36); Mean Corpuscular Volume 93.2 fL (80-100); Mean Platelet Volume 10.6 fL (7.4-10.4); Monocytes # (auto) 1.16 K/uL (0.11-0.59); Monocytes % (auto) 10.3 %; Neutrophils # (auto) 8.65 K/uL (1.4-6.5); Neutrophils % (auto) 76.7 %; Platelet Count 276 K/uL (130-400); RDW Coefficient of Variation 13.3 % (11.5-14.5); RDW Standard Deviation 45.7 fL (36.4-46.3); Red Blood Count 3.69 M/uL (4.7-6.1); White Blood Count 11.27 K/uL (4.8-10.8)
[2021-05-14] MEDS: PANTOprazole 40 MG TAB PO SCH (08:37)
[2021-05-14] MEDS: amLODIPine BESYLATE 5 MG TAB PO SCH (08:37)
[2021-05-14] MEDS: MYCOPHENOLATE MOFETIL 250 MG CAP PO SCH (08:37)
[2021-05-14] MEDS: INSULIN GLARGINE SOLOSTAR 100 UNITS/ML 3 ML PEN SC SCH (08:38)
[2021-05-14] MEDS: INSULIN ASPART 100 UNITS/ML 3 ML PEN SC SCH ×2 (08:40→12:10)
[2021-05-14] MEDS: ALPRAZolam 0.5 MG TABLET PO SCH (08:42)
--- NOTE | 2021-05-14 08:49 | Pulmonology Progress Note ---
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 His biggest complaint currently is significant abdominal distention and abdominal wall edema. His lower extremity edema is significantly better from prior and his x-ray actually shows improvement in his infiltrates compared to previous. Unfortunately with aggressive diuresis in the outpatient setting, he has had a mild increase in his serum creatinine. Recommendations: 1. Interstitial lung disease: Would continue mycophenolate at current doses. 2. YSABEL: Per nephrology. Numbers are pending today. We will need to balance long-term fluid retention and edema and kidney function. Appreciate assistance by nephrology. He should continue to monitor daily weights at home and potent ially adjust his diuretics based on his weights. 3. Lower extremity edema: Significantly improved on current exam. Continue to follow 4. Dyspnea: Improved 5. Abdominal distention: CT of the abdomen without ascites. He only has abdominal adiposity likely causing his distention. Weight loss and exercise were recommended to the patient. Hopefully we can keep him off prednisone, the central adiposity will show some improvement Patient appears stable to discharge from a pulmonary standpoint. He can follow- up with me in clinic. He will continue to need to follow his weights and diuretic regiment.. Admission and Anticipated Discharge Date Admission Date: May 11, 2021 Subjective Patient seen and examined. He is awake alert and up to the chair. He states he feels better. He is less distended in his abdomen. His breathing is much better. He feels markedly improved from admission. He is not had any fevers chills or night sweats. No chest pain palpitations. His lower extremity edema remains under good control. Review of Systems Review of Systems: All systems reviewed & are unremarkable except as noted in HPI & below Physical Exam Constitutional: WD/WN, vitals as above Neck: trachea midline, no thyromegaly Respiratory: no respiratory distress and no labored breathing Auscultation: + crackles; no wheezes Cardiovascular: Rate/Rhythm: regular rate Heart Sounds: normal S1, normal S2 and + murmur Gastrointestinal (Abdomen): Inspection/Auscultation: + abdomen distended and + abdominal edema Percussion/Palpation: abdomen nontender and no guarding Musculoskeletal: Extremities: extremities normal to inspection Skin: no rashes, warm and dry Lymphatic: no cervical lymphadenopathy Results & Data Results & Data ([facility]) Vital Signs (Past 12 Hours) Vital Signs Temp Pulse Resp BP Pulse Ox 05/14/21 08:15 36.4 C L 57 L 19 135/74 96 05/14/21 03:27 36.5 C 59 L 18 105/65 96 05/13/21 22:52 36.8 C 76 16 117/75 95 Laboratory Results 05/14/21 07:34 chemistry panel pending Diagnostic Findings CT of the abdomen pelvis was independently reviewed. No significant pathology was identified. There is significant intraperitoneal fat likely causing his distention. PG Care Time/CCT Total # of Minutes Spent Total Time Spent with Patient: Total time spent is greater than 50% in co ordination of care (as documented) at patient's floor/unit and/or counseling patient: Coding Level of Care Code 01578 Subseq Hosp Care Lvl 2 Diagnoses Interstitial lung disease J84.[address] scan of lung R91.8 YSABEL (acute kidney injury) N17.9
[2021-05-14 08:56] LABS: BUN Creatinine Ratio 29.9 (10-20); Calcium 9.1 mg/dl (8.5-10.1); Creatinine Clr Calc Pharmacy 36.7 ml/min; Est GFR (African American) 43.8 ml/min; Est GFR (Non-African American) 37.8 ml/min; Magnesium 2.1 mg/dl (1.8-2.4); Potassium 4.2 mmol/L (3.5-5.1)
--- NOTE | 2021-05-14 12:42 | Nephrology Progress Note ---
Date of Service May 14, 2021 Assessment & Plan (1) YSABEL (acute kidney injury): Mr. So has stage 3a Cr 1.3, admitted to the hospital with progressive abdominal distension and lower extremity swelling treated with IV diuretics. Developed YSABEL with volume depletion, creatinine increased to 2.7 which now started to improve and down to 1.7 this morning. Urinalysis and renal ultrasound otherwise unremarkable. Has h/o eosinophilic interstitial lung disease, on MMF. 2D echo showed LVEF 55 - 60%, mod LVH, mildly reduced RV function, no significant valvular abnormality. Has been off of diuretics for last few days, volume status seems acceptable. -- Encouraged to maintain well hydration and avoid NSAIDs. If discharge plan for this afternoon, would recommend getting outpatient lab monitoring on Sunday and send the report to his PCP. Okay to continue to hold diuretics on di scharge, can be managed by PCP as an outpatient, no nephrology outpatient follow-up needed at this time. -- will continue to follow and check electrolyte while inpatient Will follow (2) Hyponatremia: (3) Hypertension: (4) Interstitial lung disease: Admission and Anticipated Discharge Date Admission Date: May 11, 2021 Subjective Mr. So is overall feeling well, denies any symptom. Renal function improving creatinine down to 1.7, baseline creatinine around 1.3. Sodium stable but staying low around 120-130. Voiding normally. Blood pressure acceptable. Review of Systems Review of Systems: All systems reviewed & are unremarkable except as noted in Subjective Physical Exam Constitutional: well developed and well nourished; no acute distress Respiratory: normal respiratory effort, lungs clear to auscultation Cardiovascular: RRR, no murmur, no edema Neurologic: moves all extremities and awake; not confused Psychiatric: A+Ox3, euthymic affect Results & Data ([facility]) Vital Signs (Past 12 Hours) Vital Signs Temp Pulse Resp BP Pulse Ox 05/14/21 11:31 36.4 C L 57 L 18 155/75 H 95 05/14/21 08:15 36.4 C L 57 L 19 135/74 96 05/14/21 03:27 36.5 C 59 L 18 105/65 96 PG Care Time/CCT Total # of Minutes Spent Total Time Spent with Patient: Total time spent is greater than 50% in coordination of care (as documented) at patient's floor/unit and/or counseling patient: Coding Level of Care Code 76989 Subseq Hosp Care Lvl 2 Diagnoses YSABEL (acute kidney injury) N17.9 Hyponatremia E87.1 Hypertension I10 Hypertension type: essential hypertension Interstitial lung disease J84.9 (1) Hypertension Hypertension type: essential hypertension Qualified Code(s): I10 - Essential (primary) hypertension
--- NOTE | 2021-05-15 19:05 | Discharge Summary ---
Date of Service May 14, 2021 Admission HPI Per Admitting Provider 81 YOM with past medical history of; mild mitral regurge, mild aortic stenosis, cardiomyopathy, diastolic dysfunction, HTN, GERD, interstitial lung disease, DMII, BPH and venous insufficiency with GSV ablation in 2019, bilateral knee replacements. Patient has been having ongoing dyspnea with his ILD in attempts to wean his steroid dosing. He was recently started on CellCept and has been on that for the past 2 weeks. He has not noted much improvement. He has noticed increase in his abdominal girth and continues to have lower extremity edema. Patient endorses that his diuretic dosing has not been to effective and increase in cough with thin secretions. He was on Lasix and Aldactone, he had metolazone 2.5mg daily at his appointment on 04/29. 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 Patient will be admitted to follow his renal function, which appears pre-renal at this time likely related to his volume status, diuresed with IV and goal 1L negative today. He is dyspneic but not on oxygen. Patient history of cardiomyopathy is improved with last ECHO in October 31, with EF 55-60% with LVH mild MR and mild , and mild Left atrial enlargement. He also has history of frequent PVC asymptomatic with Holter monitor in 2018. He has been on BB since that time, also noted intolerance to DONY. Principal Diagnosis Interstitial Lung Disease Discharge Exam General: awake, alert, no apparent distress Head: Normocephalic, atraumatic ENT: PERRL, EOMI, no pharyngeal exudate, mucous membranes moist Neuro: AAO x 3, speech clear and appropriate Chest: equal rise and fall of the chest, no accessory muscle use, no heaves or thrills, good air movement throughout, on room air, Cardiac: Regular rate and rhythm GI: NABS x 4 quadrants, distended and taught but nontender to palpation, no rebound, guarding or tenderness : Spontaneously voiding, no pain, no CVA tenderness Extremities: Normal inspection, no peripheral edema or erythema, calfs nontender to palpation Psych: Normal mood and affect Skin: no rash or erythema Discharge Data Allergies Allergy/AdvReac Type Severity Reaction Status Date / Time Sulfa (Sulfonamide Allergy Severe RASH, Verified 04/29/21 14:38 Antibiotics) HIVES, SWOLLEN MOUTH, THROAT SWELLING Penicillins Allergy Mild RASH, HIVES Verified 04/29/21 14:38 lisinopril Allergy Unknown lethargic Verified 04/29/21 14:38 Consultations 05/11/21 11:09 ED Decision to Admit Stat 05/11/21 19:22 Consult Pulmonology Routine 05/11/21 19:29 Consult Nephrology Routine Ordered Studies 05/11/21 14:21 US renal/blad retro comp Routine 05/13/21 12:32 CT abd pelvis oral con only Routine Hospital Course (1) Interstitial lung disease: As per HPI, increase in dyspnea with increase in peripheral edema - Continue CellCept - prednisone held-- appreciate pulmonary recommendations. Watch for adrenal crisis as has been on prednisone since 07/2020 - His WBC are at his baseline with chronic steroids - PFT recent with decrease in TLC and DLCO - Appreciate input from pulmonary. -Improved emilia diuretics, however developed YSABEL. This was treated with IVF. (2) Edema: Multifactorial with ILD, decrease response to diuretics, cardiomyopathy - improved, however, he appears volume contracted. 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 will continue to hold diuretics. (4) Cardiomyopathy: As above - ECHO for evaluation of valve and RVSP (5) Hypertension: Continue with amlodipine, metoprolol, spironolactone, Terazosin (6) Mitral regurgitation: Stable as above- diurese (7) Aortic stenosis: As above, follow with diuresing (8) RBBB: New compared to previous with incomplete - ECHO likely component of ILD and elevated RSVP (9) DMII (diabetes mellitus, type 2): On Tresiba at home- formulary equivalent- pharmacy to adjust - Aspart sliding scale CF 30 with carb ratio 1:20 - hypoglycemic protocol ordered (10) BPH (benign prostatic hyperplasia): No LUTS feels as he is emptying his bladder completely - bladder scan now evaluate for retention (11) GERD (gastroesophageal reflux disease): Continue PPI DVT prophy-heparin SQ Dispo-admit to PCU Total Time Total Time Spent Total Time Spent (In Minutes): 32 Total Time Includes: Examination of the Patient, Discharge Planning and Medication Reconciliation Discharge Plan Discharge Items Patient Disposition: Home - Self-Care Reason For Visit: HF Discharge Diagnosis: Interstitial lung disease Condition on Discharge: Good Activity: Resume your previous activity Non-emergency contact: Primary Care Provider Call non-emergency contact if: you have any medication questions Follow-up/Referrals: Ryan Junior Jr, DO [Primary Care Provider] - Diet: Carb Consistent or DM2 and Low Sodium (2gm) Addtl Attending Provider Instructions: You were seen for Interstitial lung disease: You were evaluated by pulmonary. Will continue mycophenolate at current doses. Your Lower extremity edema Significantly improved on current exam. Weight loss and exercise were recommended due to increased fatty tissue in your abdomen. Prednisone was likely playing a role. Will hopefully continue to hold. In regards to your kidney failure, will continue to hold your medication Pending Studies at Discharge: No Stand-Alone Forms: My [facility] [employer], Smoking Cessation Medications and DC Order Prescriptions: Continued finasteride [Proscar] 5 mg tablet 5 mg PO HS RF: 0 alprazolam [Xanax] 0.5 mg tablet See Rx Instructions PO DAILY RF: 0 metformin 500 mg tablet 500 mg PO HS RF: 0 terazosin 5 mg capsule 5 mg PO HS RF: 0 Tresiba FlexTouch U-100 100 unit/mL (3 mL) insulin pen 20 unit subcut QAM RF: 0 escitalopram oxalate 10 mg tablet 10 mg PO HS RF: 0 famotidine 40 mg tablet 40 mg PO HS RF: 0 insulin lispro [Humalog U-100 Insulin] 100 unit/mL solution 10 unit subcut DAILY RF: 0 levothyroxine 50 mcg capsule 50 mcg PO DAILY RF: 0 spironolactone 50 mg tablet 100 mg PO BID RF: 0 mycophenolate mofetil [CellCept] 250 mg capsule 250 mg PO BID Qty: 120 RF: 2 omeprazole 40 mg capsule,delayed release(DR/EC) 40 mg PO QAM RF: 0 metoprolol succinate 50 mg tablet extended release 24 hr 50 mg PO HS RF: 0 amlodipine 5 mg tablet 5 mg PO QAM RF: 0 allopurinol 100 mg tablet 100 mg PO QAM RF: 0 aspirin 81 mg Tablet,Delayed Release (Dr/Ec) 81 mg PO HS RF: 0 rosuvastatin 5 mg tablet 5 mg PO HS RF: 0 Discontinued metolazone 2.5 mg tablet 2.5 mg PO DAILY Qty: 30 RF: 3 prednisone 10 mg tablet 10 mg PO DAILY RF: 0 furosemide [Lasix] 40 mg tablet 40 mg PO BID Qty: 60 RF: 2 Discharge Orders: Discharge Order (Routine); Ordered 05/14/21 Ordered By: Guido Mancia Admission Data Admit Date/Time: 05/11/21 12:38 Attending Provider: Guido Mancia Admit Provider: Ilene Simons Primary Care Provider: Ryan Junior Jr Other Providers: Ilene Simons ; Kofi Mares ; Chris Greene Other Interventions: Discharge Summary Assessment (RN) Last Done: 05/14/21 16:48 Coding Level of Care Code D/C Day Management >30 mins Diagnoses Interstitial lung disease J84.9 Edema R60.9 Edema type: unspecified YSABEL (acute kidney injury) N17.9 Cardiomyopathy I42.9 Cardiomyopathy type: unspecified Hypertension I10 Hypertension type: essential hypertension Mitral regurgitation I34.0 Cardiac valve disease etiology: etiology unspecified Aortic stenosis I35.0 Cardiac valve disease etiology: etiology unspecified RBBB I45.10 DMII (diabetes mellitus, type 2) E11.22; N18.31; Z79.4 Chronic kidney disease stage: stage 3 (moderate) Chronic kidney disease stage 3 subtype: stage 3a (GFR 45-59) Diabetes mellitus complication detail: with chronic kidney disease Diabetes mellitus complication status: with kidney complications Diabetes mellitus halfway insulin use: with halfway use BPH (benign prostatic hyperplasia) N40.0 Lower urinary tract symptom presence: symptoms absent GERD (gastroesophageal reflux disease) K21.9 Esophagitis presence: esophagitis presence not specified
== END 2021-05-14 17:20 | disposition home or self-care (01) | DRG 197 ==
LOC: ED 09:53 → SUATTDRO 12:38 → 2S 12:38

== ENCOUNTER 2022-03-24 05:16 | Observation (INO) ==
--- NOTE | 2022-02-28 12:08 | PAT Medication Instructions ---
Medication Instructions Date of Service February 28, 2022 Home Medications Medication Instructions Recorded mycophenolate mofetil 250 mg 250 mg PO BID #120 cap 09/16/21 capsule (CellCept) alprazolam 0.5 mg tablet (Xanax) 0.25 mg PO PM #15 tab 02/14/22 finasteride 5 mg tablet (Proscar) 5 mg PO HS allopurinol 100 mg tablet 100 mg PO QAM terazosin 5 mg capsule 5 mg PO HS escitalopram oxalate 10 mg tablet 10 mg PO QAM famotidine 40 mg tablet 40 mg PO HS insulin degludec 100 unit/mL (3 mL) subcutaneous pen (Tresiba FlexTouch U-100 insulin) 10 unit SUBCUT QAM insulin lispro 100 unit/mL subcutaneous solution (Humalog U-100 Insulin) 6 unit SUBCUT QPM levothyroxine 50 mcg capsule 50 mcg PO QAM furosemide 20 mg tablet 20 mg PO QAM mycophenolate mofetil 250 mg capsule (CellCept) 250 mg PO BID alprazolam 0.5 mg tablet (Xanax) 0.25 mg PO PM albuterol sulfate 90 mcg/actuation aerosol inhaler 1 puff INHALATION QID PRN metoprolol succinate 25 mg tablet,extended release 24 hr 25 mg PO QPM omeprazole 40 mg capsule,delayed release 40 mg PO QAM prednisone 5 mg tablet 7.5 mg PO QPM spironolactone 25 mg tablet 25 mg PO QAM ASK your prescriber and surgeon mycophenolate mofetil 250 mg capsule (CellCept) 250 mg PO BID DO NOT take the morning of surgery furosemide 20 mg tablet 20 mg PO QAM spironolactone 25 mg tablet 25 mg PO QAM Take morning of surgery With a small sip of water, OTHERWISE NOTHING TO EAT OR DRINK AFTER MIDNIGHT: allopurinol 100 mg tablet 100 mg PO QAM escitalopram oxalate 10 mg tablet 10 mg PO QAM levothyroxine 50 mcg capsule 50 mcg PO QAM albuterol sulfate 90 mcg/actuation aerosol inhaler 1 puff INHALATION QID PRN (use if needed; please bring rescue inhaler with you to hospital day of surgery if possible) omeprazole 40 mg capsule,delayed release 40 mg PO QAM Take evening before surgery finasteride 5 mg tablet (Proscar) 5 mg PO HS terazosin 5 mg capsule 5 mg PO HS famotidine 40 mg tablet 40 mg PO HS insulin lispro 100 unit/mL subcutaneous solution (Humalog U-100 Insulin) 6 unit SUBCUT QPM alprazolam 0.5 mg tablet (Xanax) 0.25 mg PO PM albuterol sulfate 90 mcg/actuation aerosol inhaler 1 puff INHALATION QID PRN (if needed) metoprolol succinate 25 mg tablet,extended release 24 hr 25 mg PO QPM prednisone 5 mg tablet 7.5 mg PO QPM Insulin Dependent Diabetic Patients * Test your blood sugar the morning of surgery * If Blood Sugar is GREATER THAN 150, take HALF of your regular dose of: insulin degludec 100 unit/mL (3 mL) subcutaneous pen (Tresiba FlexTouch U-100 insulin) take 5 units * If Blood Sugar is LESS THAN 150, DO NOT TAKE ANY: insulin degludec 100 unit/mL (3 mL) subcutaneous pen (Tresiba FlexTouch U-100 insulin) Other Notes If you have any questions please call us at [phone] or [phone] or [phone] or [phone]
--- NOTE | 2022-03-02 10:07 | Anesthesiology Consultation ---
Date of Service March 02, 2022 Assessment & Plan (1) Encounter for pre-operative examination: Chart Review Chart Review: Acceptable Risk for Surgery (pending cardio appt 03/10/22 and preop Covid testing results ) and Patient seen in Pre Admission Testing - Awaiting upcoming routine cardio appt scheduled 03/10/22 (will write note to cardio to give cardiac risk for surgery) - Check BSG AM DOS On Prednisone 5mg daily Per PAT appt on 03/02/22, patient denies any recent travel or large group activities. No known Covid positive exposures or Covid related symptoms. No known Covid infection in the past 90 days. Pt is vaccinated for Covid. Preop Covid testing scheduled 03/21/22 = will await results. Educated on importance of self quarantining, social distancing and wearing mask in public for the patient one week prior to surgery and after Covid testing done Last seen by PCP 02/14/22= Patient seen to establish care. Complains of dizziness. Patient also complains of increased GI symptomssuspect uncontrolled GERD. Diabetesappears stable. HypertensionBP at goal. Anxietystable. Follow-up in 6 months for chronic problems. (Per patient- dizziness has improved- only has dizziness when standing too quickly- no issues with slow transitions of positions; GERD still present but improved) Last seen by pulm 01/10/22= Patient seen for follow-up and interstitial lung disease of unclear etiology and BAL eosinophilia initially placed on steroids with improvement clinically and radiographically. Doing well clinically with controlled volume status on prednisone 10 mg daily. Cough may be related to UACS/post nasal drip. PFTs are stable to improved and CT remains stable. Continue current medications. Can continue Tessalon if offer clinical benefitrecommended trial of saline sinus irrigation, topical nasal steroids and potentially decongestants and antihistamines for cough. DOEstable. Lower ex tremity edemanow resolved. Follow up in three months. History Surgery Operation Date: 03/23/22 13:30 Proposed Procedures p Right Reverse Total Shoulder Arthroplasty - Thomas Johnson MD Height/Weight Height: 5 ft 9 in Weight: 81.2 kg Allergies Allergy/AdvReac Type Severity Reaction Status Date / Time Sulfa (Sulfonamide Allergy Severe RASH, Verified 02/28/22 10:38 Antibiotics) HIVES, SWOLLEN MOUTH, THROAT SWELLING lisinopril Allergy Intermediate lethargic Verified 02/28/22 10:38 Penicillins Allergy Intermediate RASH, HIVES Verified 02/28/22 10:38 Medications Home Medications Medication Instructions Recorded Confirmed Last Taken finasteride 5 mg tablet (Proscar) 5 mg PO HS tab 07/10/19 02/28/22 11/19/20 allopurinol 100 mg tablet 100 mg PO QAM 07/30/19 02/28/22 11/20/20 terazosin 5 mg capsule 5 mg PO HS 01/15/20 02/28/22 11/19/20 escitalopram oxalate 10 mg tablet 10 mg PO QAM 11/02/20 02/28/22 11/19/20 famotidine 40 mg tablet 40 mg PO HS tab 11/02/20 02/28/22 11/19/20 insulin degludec 100 unit/mL (3 10 unit SUBCUT QAM ml 01/31/21 02/28/22 Unknown mL) subcutaneous pen (Tresiba FlexTouch U-100 insulin) insulin lispro 100 unit/mL 6 unit SUBCUT QPM ml 01/31/21 02/28/22 Unknown subcutaneous solution (Humalog U-100 Insulin) levothyroxine 50 mcg capsule 50 mcg PO QAM 01/31/21 02/28/22 Unknown furosemide 20 mg tablet 20 mg PO QAM tab 07/12/21 02/28/22 Unknown mycophenolate mofetil 250 mg 250 mg PO BID #120 cap 09/16/21 02/28/22 Unknown capsule (CellCept) alprazolam 0.5 mg tablet (Xanax) 0.25 mg PO PM #15 tab 02/14/22 02/28/22 Unknown albuterol sulfate 90 mcg/actuation 1 puff INHALATION QID PRN 02/28/22 02/28/22 Unknown aerosol inhaler metoprolol succinate 25 mg 25 mg PO QPM 02/28/22 02/28/22 Unknown tablet,extended release 24 hr omeprazole 40 mg capsule,delayed 40 mg PO QAM 02/28/22 02/28/22 Unknown release prednisone 5 mg tablet 7.5 mg PO QPM 02/28/22 02/28/22 Unknown spironolactone 25 mg tablet 25 mg PO QAM 02/28/22 02/28/22 Unknown Past Medical History Medical History Accelerated idioventricular rhythm Asymptomatic. Beta-juanjose has been initiated since Holter monitor per cardio records Anxiety Aortic stenosis Mild AV stenosis on 10/15/20 ECHO "AV opens well" on 05/11/21 ECHO -Per 08/2021 cardio note- noted in 2019 - no significant stenosis on most recent ECHO- known sclerotic AV- "no significant stenosis" Benign prostatic hyperplasia Cardiomyopathy LV systolic function has normalized. Etiology of CM unknown. DMII (diabetes mellitus, type 2) Frequent PVCs FOLLOWED BY DR. WESLEY GERD (gastroesophageal reflux disease) Relatively controlled with medication (improved from previous) Hx of esophageal ulcer Hx of gout Controlled with Allopurinol Hx of melanoma of skin RT EAR Hyperlipidemia Hypothyroidism Interstitial lung disease "HAS NOT USED INHALER FOR A LONG TIME" Breathing stable at rest- mild FONTANEZ with long walks (chronic and unchanged) Low iron Anemia stable per patient Schatzki's ring No dysphagia Venous insufficiency Exercise / Class Metabolic Activity II 4-5 Yardwork/Stairs/Walk up hill (one flight of stairs - no chest pain or SOB ) Past Family History Family History Father Family history of diabetes mellitus Coronary heart disease Prostate cancer Myocardial infarction Uncle Coronary heart disease Sister Breast cancer Other No family history of adverse response to anesthesia Denies family history of Ovarian cancer Colorectal cancer Past Surgical History Surgical History H/O foot surgery RT FOOT History of amputation of toe RT FIFTH TOE - 08/06/19 [facility] [place] History of bilateral knee replacement History of cardiac cath no stents>YEARS AGO AT [facility] History of colonoscopy History of esophagogastroduodenoscopy (EGD) with dilation History of tonsillectomy and adenoidectomy History of wisdom tooth extraction S/P dilatation of esophageal stricture Past Anesthesia History No Hx of Anesthesia Complications and No Family Hx of Anesthesia Complications History of PONV No Hx of PONV and No Hx of Motion Sickness Social History Smoking Status: Never smoker Do You Dip or Chew Tobacco: No Hx Alcohol Use: No Hx Substance Use: No substance use type: does not use Review of Systems Chronic cough- ongoing secondary to ILD- occ productive Chronic FONTANEZ- stable (secondary to ILD) Hx of blood transfusion secondary to anemia (many years ago) Patient denies chest pain, shortness of breath at rest, wheezing, palpitations. No hx of seizures, stroke, MO, apnea/snoring. No hx of blood clots. Physical Exam Vital Signs VITALS BP 143/80 P 65 TEMP 98.2 SP02 95% RESP 16 Constitutional no acute distress ENMT Mouth: no TMJ clicking Thyromental Distance: > or= 3.5 Finger Breadths (3.5) Mallampati Class: I Top partial denture Missing bottom molar Neck + limited neck extension (mild ) Respiratory normal respiratory effort; no respiratory distress Auscultation: lungs clear to auscultation bilaterally; no wheezes Cardiovascular Rate/Rhythm: regular rate and regular rhythm Heart Sounds: no murmur Vessels: no carotid bruit Heart sounds diminished Musculoskeletal Spine: + pain with cervical ROM Extremities: extremities normal to inspection Psychiatric Orientation: alert Lab Results Anesthesia Preop Results Results Anesthesia Widget: WBC 12.50 K/uL (4.8-10.8) H 03/02/22 Hgb 12.2 g/dL (14.0-18.0) L 03/02/22 Hct 37.0 % (42-52) L 03/02/22 Plt 313 K/uL (130-400) 03/02/22 Na 138 mmol/L (136-145) 03/02/22 K 4.5 mmol/L (3.5-5.1) 03/02/22 Cl 105 mmol/L (98-107) 03/02/22 CO2 27 mmol/L (21-32) 03/02/22 BUN 35 mg/dl (6-23) H 03/02/22 Creat 1.35 mg/dl (0.6-1.4) 03/02/22 Glucose Level 132 mg/dl (70-99(Fasting)) H 03/02/22 PT 10.2 Seconds (9.0-12.0) 03/02/22 PTT 25.1 Seconds (21.0-31.0) 03/02/22 INR 1.0 (0.9-1.1) 03/02/22 HA1c 7.2 % (4.5-5.6) H 03/02/22 Urine Color Yellow 03/02/22 Urine Appearance Clear (Clear) 03/02/22 Urine pH 5.5 (4.5-7.5) 03/02/22 Urine Specific [place] 1.019 (1.000-1.030) 03/02/22 Urine Protein Negative (Negative) 03/02/22 Urine Glucose (UA) Negative (Negative) 03/02/22 Urine Ketones Negative (Negative) 03/02/22 Urine Blood Negative (Negative) 03/02/22 Urine Nitrite Negative (Negative) 03/02/22 Urine Bilirubin Negative (Negative) 03/02/22 Urine Urobilinogen Negative (Negative) 03/02/22 Urine Leukocyte Esterase 2+ (Negative) H 03/02/22 Urine WBC (Auto) 10-30 /hpf (0-5) H 03/02/22 Urine RBC (Auto) 0-4 /hpf (0-4) 03/02/22 Urine Hyaline Casts (Auto) 1-5 /lpf (0-5) 03/02/22 Urine Epithelial Cells (Auto) 10-20 /lpf (0-5) H 03/02/22 Urine Bacteria (Auto) Negative (Negative) 03/02/22 Blood Type O Positive 03/02/22 Antibody Screen NEGATIVE 03/02/22 Testing Laboratory Results Mild leukocytosis- pt on chronic prednisone 5mg daily per pulm for ILD Electrocardiogram Date: 05/11/21 Sinus bradycardia with sinus arrhythmia at 55 bpm Right bundle branch block. Chest X-Ray Date: 12/12/21 Cardiomegaly without radiographic evidence of congestive failure. Findings suggesting chronic interstitial lung disease are similar to previous. There are increasing patchy opacities in the right upper lobe. Correlate clinically for evidence of a superimposed infectious/inflammatory pneumonitis. Radiographic follow-up to resolution is recommended. (Had subsequent chest CT scan 12/20/21- see below) Echocardiogram Date: 05/01/21 EF: 55-60% LV Function: normal Other Findings: + LVH (moderate/concentric ) Valvular Disease: + no significant valvular disease LV cavity size is small. Abnormal septal motion consistent with conduction abnormality. Mildly reduced RV function. Normal RV size. Left atrium mildly dilated. RV systolic pressure is normal. No evidence of pulmonary hypertension. PASP is less than 36 mmHg. Compared with prior study on 10/15/2020: Current study more limited. LV function unchanged. RV mild dysfunction not present. Pulmonary Function Test Date: 12/21/21 Moderate restriction without bronchodilator response. DLCO reduced. Compared to June 2021 FVC stable, FEV1 increased 160 mm, TLC increased 700 mL and DLCO stable. Other Testing Chest CT 12/20/2021 = No change in CT findings consistent with interstitial lung disease since CT of February 18, 2021. This is most pronounced within the right upper lobe and accounts for the apparent abnormality on chest radiograph. No superimposed consolidation to suggest pneumonia. No suspicious pulmonary nodules. Mild dilatation of the central pulmonary arteries which raises the possibility of pulmonary arterial hypertension. (No significant pulmonary hypertension noted on 05/11/2021 ECHO) Holter monitor 08/07/19= Rhythm is sinus rhythm with IVCD. Average heart rate of 70 bpm. Minimum HR is 46 bpm. Maximum HR is 102 bpm. No significant pauses or AV block noted. Normal VA and QT intervals at varying heart rates. Occasional APD's and atrial couplets noted. Isolated nonsustained episodes of atrial tachycardia/ectopic atrial rhythm (up to 7 beats in duration). Frequent VPD's and ventricular couplets noted. Frequent episodes of AIVR (up to 47 beats in duration). Ventricular arrhythmia compromised 14% of recorded beats.
--- NOTE | 2022-03-19 09:14 | History & Physical Report ---
Date of Service March 19, 2022 Assessment & Plan (1) Primary osteoarthritis, left shoulder: Plan: Treatment options discussed with the patient. He has failed conservative measures. He would like to proceed with surgical intervention. Risks, benefits and alternatives to surgery including but not limited to infection, DVT, pain, stiffness, need for revision surgery, damage to blood vessels, damage to nerves, PE, , were discussed with the patient and they wish to proceed. Plan on right shoulder reverse total shoulder arthroplasty scheduled for [place] on March 23, [address] Johnson. We will plan on aspirin twice daily for 1 month postop for DVT prophylaxis. All questions were answered. Patient will follow-up postop. History of Present Illness Chief Complaint: Right shoulder pain Primary Care Provider: Ryan Junior Jr, DO 82-year-old male with past medical history significant for anxiety, DM2, hypothyroid, aortic stenosis, cardiomyopathy, GERD who presents with longstanding right shoulder pain. Patient has failed conservative measures including anti-inflammatories and cortisone injections. He has significant pain and dysfunction with daily activities. He would like to proceed with surgical intervention. Patient denies headaches, sweats, fevers, chills, double vision, blurred vision, cough, sore throat, dysphagia, chest pain, sob, wheezing, n/v/d/c, numbness, tingling, fatigue, urinary symptoms, mood disorders. ROS positive for right shoulder pain and stiffness. Allergies Allergy/AdvReac Type Severity Reaction Status Date / Time Sulfa (Sulfonamide Allergy Severe RASH, Verified 03/16/22 15:03 Antibiotics) HIVES, SWOLLEN MOUTH, THROAT SWELLING lisinopril Allergy Intermediate lethargic Verified 03/16/22 15:03 Penicillins Allergy Intermediate RASH, HIVES Verified 03/16/22 15:03 Home Medications Medication Instructions Recorded Confirmed Type finasteride 5 mg tablet (Proscar) 5 mg PO HS tab 07/10/19 03/16/22 History allopurinol 100 mg tablet 100 mg PO QAM 07/30/19 03/16/22 History terazosin 5 mg capsule 5 mg PO HS 01/15/20 03/16/22 History escitalopram oxalate 10 mg tablet 10 mg PO QAM 11/02/20 03/16/22 History famotidine 40 mg tablet 40 mg PO HS tab 11/02/20 03/16/22 History insulin degludec 100 unit/mL (3 10 unit SUBCUT QAM ml 01/31/21 03/16/22 History mL) subcutaneous pen (Tresiba FlexTouch U-100 insulin) insulin lispro 100 unit/mL 6 unit SUBCUT QPM ml 01/31/21 03/16/22 History subcutaneous solution (Humalog U-100 Insulin) levothyroxine 50 mcg capsule 50 mcg PO QAM 01/31/21 03/16/22 History furosemide 20 mg tablet 20 mg PO QAM tab 07/12/21 03/16/22 History mycophenolate mofetil 250 mg 250 mg PO BID #120 cap 09/16/21 03/16/22 Rx capsule (CellCept) alprazolam 0.5 mg tablet (Xanax) 0.25 mg PO PM #15 tab 02/14/22 03/16/22 Rx albuterol sulfate 90 mcg/actuation 1 puff INHALATION QID PRN 02/28/22 03/16/22 History aerosol inhaler metoprolol succinate 25 mg 25 mg PO QPM 02/28/22 03/16/22 History tablet,extended release 24 hr omeprazole 40 mg capsule,delayed 40 mg PO QAM 02/28/22 03/16/22 History release prednisone 5 mg tablet 7.5 mg PO QPM 02/28/22 03/16/22 History Past Med/Surg History Medical History Accelerated idioventricular rhythm Anxiety Aortic stenosis Benign prostatic hyperplasia Cardiomyopathy DMII (diabetes mellitus, type 2) Frequent PVCs GERD (gastroesophageal reflux disease) Hx of esophageal ulcer Hx of gout Hx of melanoma of skin Hyperlipidemia Hypothyroidism Interstitial lung disease Low iron Schatzki's ring Venous insufficiency Surgical History H/O foot surgery RT FOOT [place] of [place] of [place] [facility] [place] of [place] knee replacement History of cardiac cath no stents>YEARS AGO AT [facility] History of colonoscopy History of esophagogastroduodenoscopy (EGD) with dilation History of tonsillectomy and adenoidectomy History of wisdom tooth extraction S/P dilatation of esophageal stricture Family History Father Family history of diabetes mellitus Coronary heart disease Prostate cancer Myocardial infarction Uncle Coronary heart disease Sister Breast cancer Other No family history of adverse response to anesthesia Denies family history of Ovarian cancer Colorectal cancer Social History Smoking Status: Never smoker Second Hand Exposure: Yes (IN THE PAST); Hx Alcohol Use: No Hx Substance Use: No Preferred Language: Slovenian Communication Ability: Effective Visual Impairment: No Limitations Hearing Ability: Normal Supervisor Gear Repair Required: No Beliefs That Will Affect Care: None marital status: Current Living Situation: Alone current occupational status: retired Feels Safe at Home: Yes Assistive Devices: Glasses and Hearing Aid - Bilateral Review of Systems All systems reviewed & are unremarkable except as noted in HPI & below Physical Exam Constitutional: well developed and well nourished; no acute distress Eyes: PERRL, conjunctivae normal, anicteric sclerae ENMT: external ear and nose normal, oropharynx normal Neck: trachea midline, no thyromegaly Respiratory: normal respiratory effort, lungs clear to auscultation Cardiovascular: Rate/Rhythm: regular rate and regular rhythm Heart Sounds: + murmur (Systolic murmur) Extremities: no edema Musculoskeletal: Right shoulder: Crepitation with range of motion. Diffuse tenderness primarily anterior glenoid. Negative impingement signs. Active painful range of motion. Abduction of 30 degrees actively, forward flexion is 60 degrees, external rotation to 10 degrees. He has weakness and pain with strength testing. Skin: no rashes, warm and dry Neurologic: patellar DTR's 2+ bilat, sensation intact Psychiatric: A+Ox3, euthymic affect Results & Data ([place]) Diagnostic Findings Right shoulder radiographs demonstrate alil-wh-pysf glenohumeral joint with periarticular osteophyte formation and subchondral sclerosis. He has a B2 glenoid with significant posterior glenoid wear.
[~2022-03-24 05:16] MED LIST changes: +ACETAMINOPHEN 500 MG TAB PO SCH; -ALPR-411 PO; +BUPIVACAINE 0.5 % 5 MG/1 ML PF 10ML VIAL ONE; +FAMOTIDINE 20 MG TAB PO SCH; -FINA5TAB PO; +GABAPENTIN 300 MG CAP PO SCH; +LR 15ML/HR IV SCH; +METOCLOPRAMIDE HCL 10 MG TABLET PO SCH; -PRLSR20 PO; -PRVC10 PO; -TERA5CAP PO; +TRANEXAMIC ACID 1,000 MG **IV Intra-op IV SCH; +TRANEXAMIC ACID 1,000 MG **IV Pre-op IV SCH; +VANCOMYCIN HCL 1,250 MG in SODIUM CHLORIDE 0.9% 250 ML IV SCH
[2022-03-24] MEDS ORDERED: TRANEXAMIC ACID 1,000 MG **IV Pre-op IV SCH (06:00)
[2022-03-24] MEDS ORDERED: METOCLOPRAMIDE HCL 10 MG TABLET PO SCH (06:00)
[2022-03-24] MEDS ORDERED: ACETAMINOPHEN 500 MG TAB PO SCH (06:00)
[2022-03-24] MEDS ORDERED: GABAPENTIN 300 MG CAP PO SCH (06:00)
[2022-03-24] MEDS ORDERED: TRANEXAMIC ACID 1,000 MG **IV Intra-op IV SCH (06:00)
[2022-03-24] MEDS ORDERED: LR 15ML/HR IV SCH (06:00)
[2022-03-24] MEDS ORDERED: FAMOTIDINE 20 MG TAB PO SCH (06:00)
[2022-03-24] MEDS ORDERED: VANCOMYCIN HCL 1,250 MG in SODIUM CHLORIDE 0.9% 250 ML IV SCH ×2 (06:00→18:00)
[2022-03-24] MEDS ORDERED: BUPIVACAINE 0.5 % 5 MG/1 ML PF 10ML VIAL ONE (06:25)
[2022-03-24] MEDS ORDERED: MIDAZOLAM HCL 1 MG/ML 2ML VIAL ONE (06:42)
[2022-03-24] MEDS ORDERED: fentaNYL citrate 100 MCG/2 ML VIAL ONE (06:42)
[2022-03-24] MEDS ORDERED: ALBUT/IPRATROP 3MG/0.5MG NEB 3 ML VIAL NEB STA (06:46)
[2022-03-24] MEDS ORDERED: EPINEPHrine INJ 1 MG/ML AMP ONE (06:52)
[2022-03-24] MEDS ORDERED: ROPIVACAINE 0.5% 5 MG/ML 30 ML VIAL ONE (06:52)
--- NOTE | 2022-03-24 07:13 | History & Physical Bridge Note ---
Date of Service March 24, 2022 History & Physical Bridge Note I have examined the patient, reviewed the History & Physical and in the interval since the performance of the History & Physical I have noted the following changes of clinical significance: no changes noted
[2022-03-24] MEDS ORDERED: ATROPINE SULFATE 0.1 MG/ML 10ML SYR IV PRN (08:15)
[2022-03-24] MEDS ORDERED: ONDANSETRON INJ 2 MG/ML 2 ML VIAL IV PRN ×2 (08:15→12:36)
[2022-03-24] MEDS ORDERED: ePHEDrine sulfate 50 MG/ML AMP IV PRN (08:15)
[2022-03-24] MEDS ORDERED: SUGAMMADEX SODIUM 200 MG/2 ML VIAL IV ONE (08:17)
[2022-03-24] MEDS ORDERED: HYDROCORTISONE SOD SUCCINATE 100 MG/2 ML VIAL ONE (08:46)
[2022-03-24] MEDS ORDERED: PHENYLEPHRINE HCL 10 MG/ML VIAL ONE (08:46)
[2022-03-24] MEDS ORDERED: ROCURONIUM BROMIDE 10 MG/ML 5 ML VIAL IV ONE ×2 (08:46→09:21)
[2022-03-24] MEDS ORDERED: PROPOFOL IV EMULSION 10 MG/ML 20 ML VIAL IV ONE (08:46)
[2022-03-24] MEDS ORDERED: LIDOCAINE 2% 2 ML VIAL/AMP(20MG/ML) INFIL ONE (08:46)
[2022-03-24] MEDS ORDERED: GLYCOPYRROLATE 0.2 MG/ML VIAL ONE (09:21)
--- NOTE | 2022-03-24 11:10 | Post Operative Brief Note ---
Immediate Post Op Note v1 Date of Surgery March 24, 2022 Pre & Post Diagnosis Operation Date: 03/24/22 07:00 Pre-Op Diagnosis: Right Shoulder Osteoarthritis glenohumeral joint with bone loss Post-Op Diagnosis: Right Shoulder Osteoarthritis glenohumeral joint with bone loss, biceps tendinopathy, high-grade partial rotator cuff tear with rotator cuff tendinopathy I identified the patient and participated in the time-out.: Yes Procedure Operation Date: 03/24/22 07:00 Actual Procedures p Right Reverse Total Shoulder Arthroplasty(Right), biceps tenodesis- Thomas Johnson MD Surgeon Thomas Johnson MD [employer] Installer Luke CUETO Estimated Blood Loss 50 Findings Consistent with Post-Op Diagnosis Specimens Humeral head Drains Hemovac Drain (10 fr dual trocar) Anesthesia Type General Regional Complications none Disposition Disposition: Recovery Room Overlapping Procedure I was present for: the critical portions of procedure. Back up surgeon: was not required during procedure.
--- NOTE | 2022-03-24 12:10 | XRay Report ---
XR shoulder RT min 2V routine HISTORY: 82 years-old Male Post shoulder surgery right shoulder total joint arthroplasty COMPARISON: Chest radiographs 12/12/2021 TECHNIQUE: 2 views of the right shoulder FINDINGS: Reverse right shoulder total joint arthroplasty demonstrates satisfactory alignment. Surgical drainag e catheter is in place. No acute fracture or unexpected opaque foreign body. Overlying skin jam a re present along with expected postoperative soft tissue swelling and deep tissue air. Right upper jose manuel ng opacities are again noted along with cardiomegaly. IMPRESSION: Right shoulder reverse total joint arthroplasty with expected postoperative changes. ACT 112: Negative or not required by law. The above report was generated using voice recognition software. It may contain grammatical, syntax o r spelling errors. Electronically signed by: Alverto Rico M.D. 03/24/2022 12:09 PM
[2022-03-24] MEDS ORDERED: MAGNESIUM HYDROXIDE SUSP 30 ML UDC PO PRN (12:36)
[2022-03-24] MEDS ORDERED: PHARMACY GLYCEMIC MGMT CONSULT PRN (12:36)
[2022-03-24] MEDS ORDERED: NALOXONE HCL 0.4 MG/1 ML VIAL/CARP IV PRN (12:36)
[2022-03-24] MEDS ORDERED: METOCLOPRAMIDE HCL INJ 5 MG/ML 2 ML VIAL IV PRN (12:36)
[2022-03-24] MEDS ORDERED: bisacodyL 10 MG SUPP PR PRN (12:36)
[2022-03-24] MEDS ORDERED: VANCOMYCIN CONSULT ACTIVE PRN (12:36)
--- NOTE | 2022-03-24 13:16 | History & Physical Report ---
Date of Service March 24, 2022 Assessment & Plan (1) Status post reverse total arthroplasty of right shoulder: Plan: - POD #0. Doing well without complaints. - EBL 50 cc. - Defer pain management/antibiotics/fluids/VTE PPx to primary team. - CBC and BMP in AM. (2) Hypertension: Plan: - On metoprolol for accelerated idioventricular rhythm, terazosin for BPH. Previously on spironolactone for BP, however has been held leading to surgery as BP has been low side normal w/ orthostatic hypotension. (3) Cardiomyopathy: Plan: - LV systolic function has normalized. Etiology unknown. He had declined cardiac catheterization. - Lasix 20 mg daily. - LE has been well controlled s/p venous ablation. (4) Accelerated idioventricular rhythm: Plan: - Asymptomatic. Metoprolol 25 mg daily. (5) Aortic stenosis: Plan: - Reported in 2019 however most recent echo without stenosis, continue to monitor. (6) DMII (diabetes mellitus, type 2): Plan: - Consistent carb diet. - Glycemic consult placed to pharmacy per primary team. Home insulin regimen consists of: - Insulin degludec 10 units in AM. - Insulin lispro 6 units for sugar < 200 or 10 units for sugar > 200. -On home streoids for restrictive lung dz, received 50 mg IV hydrocortisone prior to anesthesia. (7) Interstitial lung disease: Plan: - Unclear etiology per pulm. - On prednisone 7.5 mg at home, received 50 mg IV hydrocortisone stress dose prior to anesthesia. - Mycophenylate 250 mcg daily. - Albuterol inhaler prn. (8) Chronic kidney disease, stage III (moderate): Plan: - Renally dose medications as able, avoid nephrotoxic agents. - Monitor on AM labs. (9) GERD (gastroesophageal reflux disease): Plan: - Continue Pepcid, PPI. (10) BPH (benign prostatic hyperplasia): Plan: - Continue terazosin, finasteride. (11) Anxiety: Plan: - Continue lexapro daily, xanax 0.25 mg before bed. Plan: - Admitted to med/surg per primary service. - SCDS, ASA 81 BID for DVt ppx per primary service. - Full Code. Admission and Anticipated Discharge Date Admission Date: March 24, 2022 History of Present Illness Primary Care Provider: Ryan Junior Jr, DO MR. So is an 82 y/o male with PMH significant for HTN, cardiomyopathy, aortic stenosis, GERD, DM2 with CKD3, hypothyroidism, anxiety, depression, and BPH who underwent right shoulder reverse total shoulder arthroplasty on March 23, [address] Johnson. Hospitalist team was consulted for medical management. Today, he is POD#0 and without complaints. He denies fever/chills, pain, weakness, numbness/tingling, chest pain, palpitations, SOB, abdominal pain, nausea, or vomiting. Allergies Allergy/AdvReac Type Severity Reaction Status Date / Time Sulfa (Sulfonamide Allergy Severe RASH, Verified 03/24/22 05:51 Antibiotics) HIVES, SWOLLEN MOUTH, THROAT SWELLING lisinopril Allergy Intermediate lethargic Verified 03/24/22 05:51 Penicillins Allergy Intermediate RASH, HIVES Verified 03/24/22 05:51 Home Medications Medication Instructions Recorded Confirmed Type finasteride 5 mg tablet (Proscar) 5 mg PO HS tab 07/10/19 03/24/22 History allopurinol 100 mg tablet 100 mg PO QAM 07/30/19 03/24/22 History terazosin 5 mg capsule 5 mg PO HS 01/15/20 03/24/22 History escitalopram oxalate 10 mg tablet 10 mg PO QAM 11/02/20 03/24/22 History (Lexapro) famotidine 40 mg tablet (Pepcid) 40 mg PO HS tab 11/02/20 03/24/22 History insulin degludec 100 unit/mL (3 10 unit SUBCUT QAM ml 01/31/21 03/24/22 History mL) subcutaneous pen (Tresiba FlexTouch U-100 insulin) insulin lispro 100 unit/mL 6 unit SUBCUT QPM ml 01/31/21 03/24/22 History subcutaneous solution (Humalog U-100 Insulin) levothyroxine 50 mcg capsule 50 mcg PO QAM 01/31/21 03/24/22 History furosemide 20 mg tablet (Lasix) 20 mg PO QAM tab 07/12/21 03/24/22 History mycophenolate mofetil 250 mg 250 mg PO BID #120 cap 09/16/21 03/24/22 Rx capsule (CellCept) alprazolam 0.5 mg tablet (Xanax) 0.25 mg PO PM #15 tab 02/14/22 03/24/22 Rx metoprolol succinate 25 mg 25 mg PO QPM 02/28/22 03/24/22 History tablet,extended release 24 hr omeprazole 40 mg capsule,delayed 40 mg PO QAM 02/28/22 03/24/22 History release prednisone 5 mg tablet 7.5 mg PO QPM 02/28/22 03/24/22 History Past Med/Surg History Medical History Accelerated idioventricular rhythm Asymptomatic. Beta-juanjose has been initiated since Holter monitor per cardio records Anxiety Aortic stenosis Mild AV stenosis on 10/15/20 ECHO "AV opens well" on 05/11/21 ECHO -Per 08/2021 cardio note- noted in 2019 - no significant stenosis on most recent ECHO- known sclerotic AV- "no significant stenosis" Benign prostatic hyperplasia Cardiomyopathy LV systolic function has normalized. Etiology of CM unknown. DMII (diabetes mellitus, type 2) Frequent PVCs FOLLOWED BY DR. 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 [facility] [place] of bilateral knee replacement History of cardiac cath no stents>YEARS AGO AT [facility] History of colonoscopy History of esophagogastroduodenoscopy (EGD) with dilation History of tonsillectomy and adenoidectomy History of wisdom tooth extraction S/P dilatation of esophageal stricture Family History Father Family history of diabetes mellitus Coronary heart disease Prostate cancer Myocardial infarction Uncle Coronary heart disease Sister Breast cancer Other No family history of adverse response to anesthesia Denies family history of Ovarian cancer Colorectal cancer Social History Smoking Status: Never smoker Second Hand Exposure: Yes (IN THE PAST); Do You Dip or Chew Tobacco: No; Hx Alcohol Use: No Hx Substance Use: No Preferred Language: Amharic Communication Ability: Effective Visual Impairment: No Limitations Hearing Ability: Normal Foster Care Case Manager Required: No Beliefs That Will Affect Care: None marital status: Current Living Situation: Alone current occupational status: retired Feels Safe at Home: Yes Safety Concerns: Feels Safe At This Time Assistive Devices: Glasses and Hearing Aid - Bilateral Assistive Devices Comment: PARTIAL UPPER PLATE Results & Data Results & Data ([facility]) Vital Signs (Past 12 Hours) Vital Signs Temp Pulse Pulse Resp BP Pulse Ox 03/24/22 12:25 56 L 18 108/62 98 03/24/22 12:15 57 L 20 139/66 97 03/24/22 12:05 36.4 C L 59 L 17 120/67 97 03/24/22 11:55 63 21 115/61 94 03/24/22 11:45 60 20 127/68 92 03/24/22 11:35 64 17 129/81 96 03/24/22 11:25 59 L 16 130/67 98 03/24/22 11:16 36 C L 66 16 131/69 99 03/24/22 07:00 71 18 95 03/24/22 06:00 36.6 C 76 18 160/78 H 95 Laboratory Results Abnormal lab results 03/24/22 03/24/22 03/24/22 Range/Units 06:13 10:08 11:24 POC Glucose 105 H 117 H 123 H (70-99) mg/dl Diagnostic Findings Shoulder X-Ray 03/24/22 11:21 XR shoulder RT min 2V routine HISTORY: 82 years-old Male Post shoulder surgery right shoulder total joint arthroplasty COMPARISON: Chest radiographs 12/12/2021 TECHNIQUE: 2 views of the right shoulder FINDINGS: Reverse right shoulder total joint arthroplasty demonstrates satisfactory alignment. Surgical drainage catheter is in place. No acute fracture or unexpected opaque foreign body. Overlying skin jam are present along with expected postoperative soft tissue swelling and deep tissue air. Right upper lung opacities are again noted along with cardiomegaly. IMPRESSION: Right shoulder reverse total joint arthroplasty with expected postoperative changes. ACT 112: Negative or not required by law. The above report was generated using voice recognition software. It may contain grammatical, syntax or spelling errors. Electronically signed by: Alverto Rico M.D. 03/24/2022 12:09 PM Code Status & VTE Plan Code Status full code. VTE Prophylaxis Plan VTE Prophylaxis will be ordered: Yes PG Care Time/CCT Total # of Minutes Spent Total Time Spent with Patient: Total time spent is greater than 50% in coordination of care (as documented) at patient's floor/unit and/or counseling patient: Coding Diagnoses Hypertension I10 Hypertension type: essential hypertension Cardiomyopathy I42.9 Cardiomyopathy type: unspecified Aortic stenosis I35.0 Cardiac valve disease etiology: etiology unspecified DMII (diabetes mellitus, type 2) E11.22; N18.31; Z79.4 Chronic kidney disease stage: stage 3 (moderate) Chronic kidney disease stage 3 subtype: stage 3a (GFR 45-59) Diabetes mellitus complication detail: with chronic kidney disease Diabetes mellitus complication status: with kidney complications Diabetes mellitus fci insulin use: with fci use Chronic kidney disease, stage III (moderate) N18.30 GERD (gastroesophageal reflux disease) K21.9 Esophagitis presence: esophagitis presence not specified BPH (benign prostatic hyperplasia) N40.0 Lower urinary tract symptom presence: symptoms absent Anxiety F41.9 Accelerated idioventricular rhythm I44.2 Interstitial lung disease J84.9 Status post reverse total arthroplasty of right shoulder Z96.611 (1) BPH (benign prostatic hyperplasia) Lower urinary tract symptom presence: symptoms absent Qualified Code(s): N40.0 - Benign prostatic hyperplasia without lower urinary tract symptoms (2) DMII (diabetes mellitus, type 2) Chronic kidney disease stage: stage 3 (moderate) Chronic kidney disease stage 3 subtype: stage 3a (GFR 45-59) Diabetes mellitus complication detail: with chronic kidney disease Diabetes mellitus complication status: with kidney complications Diabetes mellitus fci insulin use: with fci use Qualified Code(s): E11.22 - Type 2 diabetes mellitus with diabetic chronic kidney disease; N18.31 - Chronic kidney disease, stage 3a; Z79.4 - alf (current) use of insulin (3) Aortic stenosis Cardiac valve disease etiology: etiology unspecified Qualified Code(s): I35.0 - Nonrheumatic aortic (valve) stenosis (4) GERD (gastroesophageal reflux disease) Esophagitis presence: esophagitis presence not specified Qualified Code(s): K21.9 - Gastro-esophageal reflux disease without esophagitis (5) Hypertension Hypertension type: essential hypertension Qualified Code(s): I10 - Essential (primary) hypertension (6) Cardiomyopathy Cardiomyopathy type: unspecified Qualified Code(s): I42.9 - Cardiomyopathy, unspecified
--- NOTE | 2022-03-24 13:38 | Anesthesiology Progress Note ---
Date of Service March 24, 2022 Anesthesia Post Procedure Vital Signs Vital Signs: Temp Pulse Pulse Resp BP Pulse Ox 03/24/22 13:16 67 16 138/78 98 03/24/22 12:45 36.4 C L 61 18 132/72 97 03/24/22 12:25 56 L 18 108/62 98 03/24/22 12:15 57 L 20 139/66 97 03/24/22 12:05 36.4 C L 59 L 17 120/67 97 03/24/22 11:55 63 21 115/61 94 03/24/22 11:45 60 20 127/68 92 03/24/22 11:35 64 17 129/81 96 03/24/22 11:25 59 L 16 130/67 98 03/24/22 11:16 36 C L 66 16 131/69 99 03/24/22 07:00 71 18 95 03/24/22 06:00 36.6 C 76 18 160/78 H 95 Transfer of Care Handoff Completed per policy Notes Mental Status: alert / awake / arousable and participated in evaluation Patient Amnestic to Procedure: Yes Nausea / Vomiting: adequately controlled Pain: adequately controlled Airway Patency, RR, SpO2: stable & adequate BP & HR: stable & adequate Hydration State: stable & adequate Anesthetic Complications: no major complications apparent and Pt Satisfied with anesthetic care Notes: The patient is doing well in recovery with no complaints. I did inform Jazmine Almanza, the PA following the patient on the floor, that the patient received Solucortef 50mg IV prior to induction of anesthesia as he is on daily prednisone.
[2022-03-24] MEDS ORDERED: DEXTROSE 50% 50 ML SYRINGE IV PRN (13:53)
[2022-03-24] MEDS ORDERED: GLUCAGON FOR INJ 1 MG VIAL SQ PRN (13:53)
[2022-03-24] MEDS ORDERED: GLUCOSE 40% GEL 15 GM TUBE PO PRN (13:53)
[2022-03-24] MEDS ORDERED: GLUCOSE 10 TABS/TUBE PO PRN (13:53)
[2022-03-24] MEDS ORDERED: CARBOHYDRATES FOR HYPOGLYCEMIA PO PRN (13:53)
[2022-03-24] MEDS: ACETAMINOPHEN 500 MG TAB PO SCH ×2 (14:31→20:57)
[2022-03-24] MEDS: SODIUM CHLORIDE 0.9% 1000ML 1,000 ML IV SCH (14:31)
--- NOTE | 2022-03-24 14:54 | Pharmacy Report ---
Pharmacy Glycemic Short Note 2 - Date of Service March 24, 2022 - Glycemic Short BSG Results (Last 24 hours): 03/24/22 03/24/22 03/24/22 06:13 10:08 11:24 POC Glucose 105 H 117 H 123 H OUTPATIENT ANTIDIABETIC REGIMEN: * Tresiba 10 units SQ QAM * Humalog 6 units if dinner BSG is less than 200 mg/dl, Humalog 10 units if dinner BSG is above 200 mg/dl ASSESSMENT: * 82 y/o M admitted for R shoulder arthroplasty today. Patient has history of Type 2 diabetes, interstitial lung disease and Chronic kidney disease stage 3. * On past admission in April 2021, patient received basal Lantus 20 units QAM and Novolog coverage ACHS with loose correction factor and carb ratio. * Patient is on chronic Prednisone 7.5 mg daily at home. This is continued on admission. He also received Hydrocortisone IV in the OR today during surgery. * Fasting and pre-lunch BSGs today have been within goal. Will re-assess basal insulin tomorrow. Patient's last dose of basal Tresiba insulin was on yesterday AM. * Novolog ordered with loose parameters with dinner today. Anticipate that BSGs might trend up tonight with patient receiving IV steroid this AM. However, will dose cautiously given that he has renal impairment. PLAN FOR INPATIENT GLYCEMIC CONTROL: * Basal insulin * None today. Re-assess tomorrow * Bolus insulin * NovoLog per scale ACHS or Q6hrs while NPO * Goal Range: Low 110 mg/dL - High 180 mg/dL * Correction Factor: 30 mg/dL/unit * Nutritional / Prandial insulin per carb ratio of 1 unit per 20 grams CHO consumed
--- NOTE | 2022-03-24 15:00 | Hospitalist Consultation ---
Date of Consultation March 24, 2022 Assessment & Plan (1) Status post reverse total arthroplasty of right shoulder: - POD #0. Doing well without complaints. - EBL 50 cc. - Defer pain management/antibiotics/fluids/VTE PPx to primary team. - CBC and BMP in AM. (2) Hypertension: - On metoprolol for accelerated idioventricular rhythm, terazosin for BPH. Previously on spironolactone for BP, however has been held leading to surgery as BP has been low side normal w/ orthostatic hypotension. (3) Cardiomyopathy: - LV systolic function has normalized. Etiology unknown. He had declined cardiac catheterization. - Lasix 20 mg daily. - LE has been well controlled s/p venous ablation. (4) Accelerated idioventricular rhythm: - Asymptomatic. Metoprolol 25 mg daily. (5) Aortic stenosis: - Reported in 2019 however most recent echo without stenosis, continue to monitor. (6) DMII (diabetes mellitus, type 2): - Consistent carb diet. - Glycemic consult placed to pharmacy per primary team. Home insulin regimen consists of: - Insulin degludec 10 units in AM. - Insulin lispro 6 units for sugar < 200 or 10 units for sugar > 200. -On home streoids for restrictive lung dz, received 50 mg IV hydrocortisone prior to anesthesia. (7) Interstitial lung disease: - Unclear etiology per pulm. - On prednisone 7.5 mg at home, received 50 mg IV hydrocortisone stress dose prior to anesthesia. - Mycophenylate 250 mcg daily. - Albuterol inhaler prn. (8) Chronic kidney disease, stage III (moderate): - Renally dose medications as able, avoid nephrotoxic agents. - Monitor on AM labs. (9) GERD (gastroesophageal reflux disease): - Continue Pepcid, PPI. (10) BPH (benign prostatic hyperplasia): - Continue terazosin, finasteride. (11) Anxiety: - Continue lexapro daily, xanax 0.25 mg before bed. - Admitted to med/surg per primary service. - SCDS, ASA 81 BID for DVt ppx per primary service. - Full Code. Supervising Physician Co-Signing Physician Notes Discussed with DRAKE, agree with her note above. Patient is status post shoulder reverse arthroplasty on the right. Patient apparently tolerated procedure well. He is on chronic steroids and was given stress dosing postoperatively. Vital signs appear to be stable with pulse of 59 and blood pressure 114/65. Other medications continue as ordered. Further disposition per primary service. History of Present Illness Reason for Consultation: medical management Attending Physician: Thomsa Johnson MD History of Present Illness Mr. So is an 82 y/o male with PMH significant for HTN, cardiomyopathy, aortic stenosis, GERD, DM2 with CKD3, hypothyroidism, anxiety, depression, and BPH who underwent right shoulder reverse total shoulder arthroplasty on March 23, [address] Johnson. Hospitalist team was consulted for medical management. Today, he is POD#0 and without complaints. He denies fever/chills, pain, weakness, numbness/tingling, chest pain, palpitations, SOB, abdominal pain, nausea, or vomiting. Allergies Allergy/AdvReac Type Severity Reaction Status Date / Time Sulfa (Sulfonamide Allergy Severe RASH, Verified 03/24/22 05:51 Antibiotics) HIVES, SWOLLEN MOUTH, THROAT SWELLING lisinopril Allergy Intermediate lethargic Verified 03/24/22 05:51 Penicillins Allergy Intermediate RASH, HIVES Verified 03/24/22 05:51 Home Medications Medication Instructions Recorded Confirmed Type finasteride 5 mg tablet (Proscar) 5 mg PO HS tab 07/10/19 03/24/22 History allopurinol 100 mg tablet 100 mg PO QAM 07/30/19 03/24/22 History terazosin 5 mg capsule 5 mg PO HS 01/15/20 03/24/22 History escitalopram oxalate 10 mg tablet 10 mg PO QAM 11/02/20 03/24/22 History (Lexapro) famotidine 40 mg tablet (Pepcid) 40 mg PO HS tab 11/02/20 03/24/22 History insulin degludec 100 unit/mL (3 10 unit SUBCUT QAM ml 01/31/21 03/24/22 History mL) subcutaneous pen (Tresiba FlexTouch U-100 insulin) insulin lispro 100 unit/mL 6 unit SUBCUT QPM ml 01/31/21 03/24/22 History subcutaneous solution (Humalog U-100 Insulin) levothyroxine 50 mcg capsule 50 mcg PO QAM 01/31/21 03/24/22 History furosemide 20 mg tablet (Lasix) 20 mg PO QAM tab 07/12/21 03/24/22 History mycophenolate mofetil 250 mg 250 mg PO BID #120 cap 09/16/21 03/24/22 Rx capsule (CellCept) alprazolam 0.5 mg tablet (Xanax) 0.25 mg PO PM #15 tab 02/14/22 03/24/22 Rx metoprolol succinate 25 mg 25 mg PO QPM 02/28/22 03/24/22 History tablet,extended release 24 hr omeprazole 40 mg capsule,delayed 40 mg PO QAM 02/28/22 03/24/22 History release prednisone 5 mg tablet 7.5 mg PO QPM 02/28/22 03/24/22 History Patient History Medical History Accelerated idioventricular rhythm Asymptomatic. Beta-juanjose has been initiated since Holter monitor per cardio records Anxiety Aortic stenosis Mild AV stenosis on 10/15/20 ECHO "AV opens well" on 05/11/21 ECHO -Per 08/2021 cardio note- noted in 2019 - no significant stenosis on most recent ECHO- known sclerotic AV- "no significant stenosis" Benign prostatic hyperplasia Cardiomyopathy LV systolic function has normalized. Etiology of CM unknown. DMII (diabetes mellitus, type 2) Frequent PVCs FOLLOWED BY DR. 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 [facility] [place] History of bilateral knee replacement History of cardiac cath no stents>YEARS AGO AT [facility] History of colonoscopy History of esophagogastroduodenoscopy (EGD) with dilation History of tonsillectomy and adenoidectomy History of wisdom tooth extraction S/P dilatation of esophageal stricture Family History Father Family history of diabetes mellitus Coronary heart disease Prostate cancer Myocardial infarction Uncle Coronary heart disease Sister Breast cancer Other No family history of adverse response to anesthesia Denies family history of Ovarian cancer Colorectal cancer Social History Smoking Status: Never smoker Second Hand Exposure: Yes (IN THE PAST); Do You Dip or Chew Tobacco: No; Hx Alcohol Use: No Hx Substance Use: No Preferred Language: Indonesian Communication Ability: Effective Visual Impairment: No Limitations Hearing Ability: Normal Crown Perforator Operator Required: No Beliefs That Will Affect Care: None marital status: Current Living Situation: Alone current occupational status: retired Other Information That Helps Us Care for You: No Feels Safe at Home: Yes Safety Concerns: Feels Safe At This Time Assistive Devices: Glasses and Hearing Aid - Bilateral Assistive Devices Comment: PARTIAL UPPER PLATE Review of Systems Review of Systems: Constitutional: No fever/chills, weakness, fatigue, myalgias, anorexia, night sweats Eyes: No diplopia, no worsening or blurred vision ENT: normal hearing, no trouble swallowing Respiratory: No cough, sputum, dyspnea at rest or on exertion Cardiovascular: No chest pain, tightness or palpitations Abdomen: No pain, nausea, vomiting, diarrhea or constipation : Denies dysuria, hematuria, increased urgency/frequency, urinary retention Musculoskeletal: No joint pain, calf pain, swelling Neurologic: No weakness, numbness/tingling, or balance problems Psychiatric: No anxiety or depression Skin: No rash or itch Physical Exam Physical Exam: General: awake, alert, no apparent distress Head: Normocephalic, atraumatic ENT: PERRL, EOMI, no pharyngeal exudate, mucous membranes moist Chest: Clear to auscultation, on room air, no adventitious breath sounds Cardiac: Regular rate and rhythm, no murmur, no JVD, normal peripheral pulses, good capillary refill Abdominal: NABS x 4 quadrants, soft, nontender to palpation, no rebound, guarding or tenderness Extremities: Normal inspection, no peripheral edema or erythema, calfs nontender to palpation Psych: Normal mood and affect Neuro: AAO x 3, strength intact bilaterally and rated 5/5, no motor deficits, speech is clear, no peripheral sensory deficits Skin: no rash or erythema Results & Data Results & Data ([facility]) Vital Signs (Past 12 Hours) Vital Signs Temp Pulse Pulse Resp BP Pulse Ox 03/24/22 14:50 59 L 16 114/65 98 03/24/22 13:43 63 16 102/65 96 03/24/22 13:16 67 16 138/78 98 03/24/22 12:45 36.4 C L 61 18 132/72 97 03/24/22 12:25 56 L 18 108/62 98 03/24/22 12:15 57 L 20 139/66 97 03/24/22 12:05 36.4 C L 59 L 17 120/67 97 03/24/22 11:55 63 21 115/61 94 03/24/22 11:45 60 20 127/68 92 03/24/22 11:35 64 17 129/81 96 03/24/22 11:25 59 L 16 130/67 98 03/24/22 11:16 36 C L 66 16 131/69 99 03/24/22 07:00 71 18 95 03/24/22 06:00 36.6 C 76 18 160/78 H 95 Laboratory Results Abnormal lab results 03/24/22 03/24/22 03/24/22 Range/Units 06:13 10:08 11:24 POC Glucose 105 H 117 H 123 H (70-99) mg/dl Diagnostic Findings Shoulder X-Ray 03/24/22 11:21 XR shoulder RT min 2V routine HISTORY: 82 years-old Male Post shoulder surgery right shoulder total joint arthroplasty COMPARISON: Chest radiographs 12/12/2021 TECHNIQUE: 2 views of the right shoulder FINDINGS: Reverse right shoulder total joint arthroplasty demonstrates satisfactory alignment. Surgical drainage catheter is in place. No acute fracture or unexpected opaque foreign body. Overlying skin jam are present along with expected postoperative soft tissue swelling and deep tissue air. Right upper lung opacities are again noted along with cardiomegaly. IMPRESSION: Right shoulder reverse total joint arthroplasty with expected postoperative changes. ACT 112: Negative or not required by law. The above report was generated using voice recognition software. It may contain grammatical, syntax or spelling errors. Electronically signed by: Alverto Rico M.D. 03/24/2022 12:09 PM PG Care Time/CCT Total # of Minutes Spent Total Time Spent with Patient: Total time spent is greater than 50% in coordination of care (as documented) at patient's floor/unit and/or counseling patient: Coding Level of Care Code 15188 Inpt Consult Level 4 Diagnoses Status post reverse total arthroplasty of right shoulder Z96.611 Hypertension I10 Hypertension type: essential hypertension Cardiomyopathy I42.9 Cardiomyopathy type: unspecified Accelerated idioventricular rhythm I44.2 Aortic stenosis I35.0 Cardiac valve disease etiology: etiology unspecified DMII (diabetes mellitus, type 2) E11.22; N18.31; Z79.4 Chronic kidney disease stage: stage 3 (moderate) Chronic kidney disease stage 3 subtype: stage 3a (GFR 45-59) Diabetes mellitus complication detail: with chronic kidney disease Diabetes mellitus complication status: with kidney complications Diabetes mellitus machine long goods helper insulin use: with fci use Interstitial lung disease J84.9 Chronic kidney disease, stage III (moderate) N18.30 GERD (gastroesophageal reflux disease) K21.9 Esophagitis presence: esophagitis presence not specified BPH (benign prostatic hyperplasia) N40.0 Lower urinary tract symptom presence: symptoms absent Anxiety F41.9 (1) BPH (benign prostatic hyperplasia) Lower urinary tract symptom presence: symptoms absent Qualified Code(s): N40.0 - Benign prostatic hyperplasia without lower urinary tract symptoms (2) DMII (diabetes mellitus, type 2) Chronic kidney disease stage: stage 3 (moderate) Chronic kidney disease stage 3 subtype: stage 3a (GFR 45-59) Diabetes mellitus complication detail: with chronic kidney disease Diabetes mellitus complication status: with kidney complications Diabetes mellitus fci insulin use: with machine long goods helper use Qualified Code(s): E11.22 - Type 2 diabetes mellitus with diabetic chronic kidney disease; N18.31 - Chronic kidney disease, stage 3a; Z79.4 - 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
[2022-03-24] MEDS ORDERED: INSULIN ASPART 100 UNITS/ML 3 ML PEN SC SCH (16:30)
[2022-03-24] MEDS: INSULIN ASPART PER UNIT SC SCH ×2 (18:14→20:41)
[2022-03-24] MEDS: DOCUSATE SODIUM 100 MG CAP PO SCH (20:56)
[2022-03-24] MEDS: ASPIRIN 81 MG ECTAB PO SCH (20:58)
[2022-03-24] MEDS ORDERED: TERAZOSIN HCL 5 MG CAP PO SCH (21:00)
[2022-03-24] MEDS ORDERED: FAMOTIDINE 40 MG TABLET PO SCH (21:00)
[2022-03-24] MEDS ORDERED: ALPRAZolam 0.25 MG TABLET PO SCH (21:00)
[2022-03-24] MEDS ORDERED: FINASTERIDE 5 MG TAB PO SCH (21:00)
[2022-03-24] MEDS ORDERED: predniSONE 2.5 MG TAB PO SCH (21:00)
[2022-03-24] MEDS ORDERED: SENNA 8.6 MG TAB PO SCH (21:00)
[2022-03-24] MEDS ORDERED: MYCOPHENOLATE MOFETIL 250 MG CAP PO SCH (21:00)
[2022-03-24] MEDS: oxyCODONE HCL IR 5 MG TAB (IMMEDIATE RELEASE) PO PRN (22:09)
[2022-03-25] MEDS ORDERED: INSULIN ASPART PER UNIT SC SCH
[2022-03-25] MEDS: HYDROmorphone INJ 0.5 MG/0.5 ML SYR IV PRN ×2 (00:29→05:04)
[2022-03-25] MEDS: SODIUM CHLORIDE 0.9% 1000ML 1,000 ML IV SCH (02:31)
[2022-03-25] MEDS: oxyCODONE HCL IR 5 MG TAB (IMMEDIATE RELEASE) PO PRN (02:31)
[2022-03-25] MEDS: ACETAMINOPHEN 500 MG TAB PO SCH (05:04)
[2022-03-25 05:56] LABS: Basophils # (auto) 0.02 K/uL (0-0.2); Basophils % (auto) 0.1 %; Eosinophils # (auto) 0.01 K/uL (0-0.5); Eosinophils % (auto) 0.1 %; Hematocrit (blood only) 29.7 % (42-52); Hemoglobin 10.4 g/dL (14.0-18.0); Immature Granulocytes # (auto) 0.07 K/uL (0.00-0.02); Immature Granulocytes % (auto) 0.4 %; Lymphocytes # (auto) 1.06 K/uL (1.2-3.4); Lymphocytes % (auto) 6.4 %; Mean Corpuscular Hemoglobin 33.3 pg (25-34); Mean Corpuscular Volume 95.2 fL (80-100); Mean Platelet Volume 10.4 fL (7.4-10.4); Monocytes # (auto) 0.94 K/uL (0.11-0.59); Monocytes % (auto) 5.6 %; Neutrophils # (auto) 14.57 K/uL (1.4-6.5); Neutrophils % (auto) 87.4 %; Platelet Count 256 K/uL (130-400); RDW Coefficient of Variation 13.4 % (11.5-14.5); RDW Standard Deviation 46.5 fL (36.4-46.3); Red Blood Count 3.12 M/uL (4.7-6.1); White Blood Count 16.67 K/uL (4.8-10.8)
[2022-03-25 06:17] LABS: BUN Creatinine Ratio 21.1 (10-20); Calcium 8.3 mg/dl (8.5-10.1); Creatinine Clr Calc Pharmacy 44.7 ml/min; Est GFR (African American) 62.1 ml/min; Est GFR (Non-African American) 53.6 ml/min; Potassium 4.2 mmol/L (3.5-5.1)
[2022-03-25] MEDS ORDERED: LEVOTHYROXINE SODIUM 50 MCG TABLET PO SCH (06:30)
--- NOTE | 2022-03-25 06:46 | Orthopedic Progress Note ---
Date of Service March 25, 2022 Assessment & Plan (1) History of reverse total replacement of right shoulder joint: Plan: POD #1 s/p Right Total Shoulder Arthroplasty Reverse sling cont to ice right shoulder no ROM shoulder, he can do gentle hand/wrist/elbow ROM ASA 81mg po bid d/c hemovac Admission and Anticipated Discharge Date Admission Date: March 24, 2022 Subjective POD #1 s/p Right reverse Total Shoulder Arthroplasty Review of Systems Constitutional: no fever and no chills Respiratory: no cough and no dyspnea Cardiovascular: no chest pain, no dyspnea and no orthopnea Gastrointestinal: no abdominal pain, no nausea and no vomiting Physical Exam Physical Exam: Vital Signs Temp 36.5 C 03/25/22 02:00 Pulse 64 03/25/22 02:00 Resp 18 03/25/22 02:00 BP 141/68 H 03/25/22 02:00 Pulse Ox 93 03/25/22 02:00 Intake & Output 03/24/22 03/24/22 03/25/22 06:59 18:59 06:59 Intake Total 1975 / 4228.333 2253.333 / 4228.33 3 Output Total 75 / 200 125 / 200 Balance 1900 / 4028.333 2128.333 / 4028.33 3 Weight 81.9 kg 81.9 kg Intake: IV 475 / 2078.333 1603.333 / 2078.33 3 Lactated Ringe r's 1,000 ml @ 15 0 / 0 mls/hr IV .Q24 H JUAN A Rx#: [id number] Sodium Chlorid e 0.9% 1000ML 1, 1353.333 / 1353.33 3 000 ml @ 100 m ls/hr IV .Q10H JUAN A Rx#:[id number] Tranexamic Aci d / 0.7% NaCl 1, 200 / 200 000 mg In 100 ml @ 600 mls/hr IV TODAY@0600 JUAN A Rx#:[id number] Vancomycin HCl 1,250 mg In 275 / 525 250 / 525 Sodium Chlorid e 0.9% 250 ml @ 200 mls/hr IV 1800 JUAN A Rx#: [id number] IV Perioperative 1500 / 1500 Oral 650 / 650 Output: Estimated Blood Loss 50 / 50 Drain Output 25 / 150 125 / 150 Right Shoulder Hemovac 25 / 150 125 / 150 Other: # Unmeasured Voi ds 2 Weight Measureme nt Method Standing Scale Standing Scale Constitutional: WD/WN, vitals as above Musculoskeletal: Shoulder: + ecchymosis, + surgical incision (dressing clean and dry) and + surgical drain present; no deformity rad/med/uln nerve intact, Rad pulse +2 Results & Data ([facility]) Vital Signs (Past 12 Hours) Vital Signs Temp Pulse Resp BP Pulse Ox 03/25/22 02:00 36.5 C 64 18 141/68 H 93 03/24/22 22:04 36.4 C L 65 18 188/78 H 96 03/24/22 19:30 36.4 C L 65 18 123/69 91 Laboratory Results Laboratory Results WBC 16.67 K/uL (4.8-10.8) H 03/25/22 05:38 RBC 3.12 M/uL (4.7-6.1) L 03/25/22 05:38 Hgb 10.4 g/dL (14.0-18.0) L 03/25/22 05:38 Hct 29.7 % (42-52) L 03/25/22 05:38 MCV 95.2 fL (80-100) 03/25/22 05:38 MCH 33.3 pg (25-34) 03/25/22 05:38 MCHC 35.0 g/dL (32-36) 03/25/22 05:38 RDW Std Deviation 46.5 fL (36.4-46.3) H 03/25/22 05:38 RDW Coeff of Graham 13.4 % (11.5-14.5) 03/25/22 05:38 Plt Count 256 K/uL (130-400) 03/25/22 05:38 MPV 10.4 fL (7.4-10.4) 03/25/22 05:38 Immature Gran % (Auto) 0.4 % 03/25/22 05:38 Neut % (Auto) 87.4 % 03/25/22 05:38 Lymph % (Auto) 6.4 % 03/25/22 05:38 Robeson % (Auto) 5.6 % 03/25/22 05:38 Eos % (Auto) 0.1 % 03/25/22 05:38 Baso % (Auto) 0.1 % 03/25/22 05:38 Neut # (Auto) 14.57 K/uL (1.4-6.5) H 03/25/22 05:38 Lymph # (Auto) 1.06 K/uL (1.2-3.4) L 03/25/22 05:38 Robeson # (Auto) 0.94 K/uL (0.11-0.59) H 03/25/22 05:38 Eos # (Auto) 0.01 K/uL (0-0.5) 03/25/22 05:38 Baso # (Auto) 0.02 K/uL (0-0.2) 03/25/22 05:38 Immature Gran # (Auto) 0.07 K/uL (0.00-0.02) H 03/25/22 05:38 Sodium 132 mmol/L (136-145) L 03/25/22 05:38 Potassium 4.2 mmol/L (3.5-5.1) 03/25/22 05:38 Chloride 103 mmol/L (98-107) 03/25/22 05:38 Carbon Dioxide 21 mmol/L (21-32) 03/25/22 05:38 Anion Gap 8 (3-11) 03/25/22 05:38 BUN 26 mg/dl (6-23) H 03/25/22 05:38 Creatinine 1.23 mg/dl (0.6-1.4) 03/25/22 05:38 Est Cr Clr Drug Dosing 44.7 ml/min 03/25/22 05:38 Est GFR ( Amer) 62.1 ml/min 03/25/22 05:38 Est GFR (Non-Af Amer) 53.6 ml/min 03/25/22 05:38 BUN/Creatinine Ratio 21.1 (10-20) H 03/25/22 05:38 Glucose 186 mg/dl (70-99(Fasting)) H 03/25/22 05:38 POC Glucose 144 mg/dl (70-99) H 03/24/22 20:28 Calcium 8.3 mg/dl (8.5-10.1) L 03/25/22 05:38 SARS-CoV-2, RNA, NAAT NEGATIVE (NEGATIVE) 03/24/22 05:27 Impressions Shoulder X-Ray 03/24/22 11:21 XR shoulder RT min 2V routine HISTORY: 82 years-old Male Post shoulder surgery right shoulder total joint arthroplasty COMPARISON: Chest radiographs 12/12/2021 TECHNIQUE: 2 views of the right shoulder FINDINGS: Reverse right shoulder total joint arthroplasty demonstrates satisfactory alignment. Surgical drainage catheter is in place. No acute fracture or u nexpected opaque foreign body. Overlying skin jam are present along with expected postoperative soft tissue swelling and deep tissue air. Right upper lung opacities are again noted along with cardiomegaly. IMPRESSION: Right shoulder reverse total joint arthroplasty with expected postoperative changes. ACT 112: Negative or not required by law. The above report was generated using voice recognition software. It may contain grammatical, syntax or spelling errors. Electronically signed by: Alverto Rico M.D. 03/24/2022 12:09 PM
[2022-03-25] MEDS: ASPIRIN 81 MG ECTAB PO SCH (08:48)
[2022-03-25] MEDS: DOCUSATE SODIUM 100 MG CAP PO SCH (08:49)
[2022-03-25] MEDS ORDERED: MULTIVITAMIN TAB PO SCH (09:00)
[2022-03-25] MEDS ORDERED: allopurinoL 100 MG TAB PO SCH (09:00)
[2022-03-25] MEDS ORDERED: ESCITALOPRAM OXALATE 10 MG TAB PO SCH (09:00)
[2022-03-25] MEDS ORDERED: FUROSEMIDE 20 MG TAB PO SCH (09:00)
[2022-03-25] MEDS: INSULIN ASPART PER UNIT SC SCH (09:00)
[2022-03-25] MEDS ORDERED: PANTOprazole 40 MG TAB PO SCH (09:00)
[2022-03-25] MEDS ORDERED: INSULIN GLARGINE SOLOSTAR 100 UNITS/ML 3 ML PEN SC SCH (09:00)
--- NOTE | 2022-03-25 11:22 | Communication Note ---
Date of Service: March 25, 2022 Was planning to see Mr So on rounds this am. Upon chart review, however, it appears he has already been d/c to home this morning by the primary orthopedic team. Review of record shows stable VS overnight. O2 sats 91% in RA or higher. Labs - WBC count mildly high, perhaps due to stress-dose steroids (received 100mg of hydrocortisone yesterday). Minimal drop in H/H. Platelets wnl. BMP wnl except Na 132. BSGs <200. Due to early discharge personal bedside visit was NOT performed. Patient will need close f/u with PCP and orthopedics post-d/c. Nitin Urias MD
--- NOTE | 2022-03-25 18:24 | Operative Report (OR) ---
DATE OF PROCEDURE: 03/24/2022. 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 He also has rotator cuff tendinopathy. Radiographs demonstrate bone-on-b one in the glenohumeral joint with bone loss of the glenoid with a B2 type glenoid. PREOPERATIVE DIAGNOSES: End-stage glenohumeral osteoarthritis and rotator cuff tendinopathy of the r ight shoulder. POSTOPERATIVE DIAGNOSES: End-stage glenohumeral osteoarthritis with high-grade partial rotator cuff tear with rotator cuff tendinopathy and biceps tendinopathy, right shoulder. PROCEDURE: Right shoulder reversed total shoulder arthroplasty with biceps tenodesis. SURGEON: Thomas Johnson MD. BLOOD BANK WORKER: NORY Landis. ANESTHESIA: Regional block and general. COMPLICATIONS: None. DRAINS: Two Hemovac. DISPOSITION: Recovery room. SPECIMENS: Humeral head. OPERATIVE REPORT: Patient was administered regional block anesthetic, placed under general anestheti c, positioned on the operating room table in a 40-degree beach chair position. A towel roll was plac ed under the medial border of his right scapula. He was translated right side of the bed, so shoulde r to be manipulated off the bed as necessary. His right shoulder was sterilely prepped and draped in the usual fashion with ChloraPrep. Exam demonstrated ofuc-yh-duhz articulation, 70 degrees abductio n, 130 degrees of forward flexion. An anterior deltopectoral approach was performed. The skin was i ncised sharply. Subcutaneous flaps were elevated. There was no well defined cephalic vein. The del toid was retracted laterally. The pectoralis major was retracted medially and the lateral margin of the conjoined tendon was identified and clavipectoral fascia was divided up to the CA ligament. Ther e was some bursitis over the subscapularis, which was resected. There was also some bursitis in the superior subacromial space, which was resected. This revealed the rotator cuff to have a high-grade partial rotator cuff tear of the supraspinatus with a deep partial tear with tendinopathy noted. The re was also chronic biceps tenosynovitis and intraarticularly there was more advanced biceps tendinop athy. The upper centimeter of the pectoralis was released for inferior exposure. The biceps tendon was tenodesed to the pectoralis tendon with interrupted #2 FiberWire suture with a soft tissue tenode sis. The proximal biceps was resected. The circumflex vessels were identified and tied off with binh k ties and divided laterally. The subscapularis muscle fibers were split at the level of the circumf lester vessels and dissected down to the capsule, which was identified clearly and a Kitner elevator was used to reflect the inferior subscapularis fibers and the axillary nerve inferiorly off of the infer ior capsule and the blunt Hohmann retractor was placed inferiorly for protection to the axillary nerv e. The rotator interval was opened up and extended laterally and a subperiosteal peel technique was perf ormed to take down the subscapularis off of the lesser tuberosity of the humerus. A #1 Vicryl tracti on suture was placed. Humerus was externally rotated and the inferior osteophytes were resected with an artist chisel and a rongeur. Humeral head was completely devoid of any articular cartilage. The re was also bone loss with flattening of the humeral head with eburnated bone. The capsule and the n kedar of the humerus was released with a small Robles elevator and electrocautery, staying on bone. A Fu kuda retractor was placed into the joint and then the remainder of the intraarticular biceps tendon a nd labrum was resected. The glenoid was a B2 type glenoid with posterior wear that was substantial. An anterior, inferior and posterior inferior release was performed with electrocautery on bone and a Robles elevator and the triceps tendon was released. Attention was taken back to the humerus. Humeral head was exposed and the supraspinatus was released and the Tornier total shoulder arthroplasty reverse system was utilized. The cutting guide for the humerus was placed in position. A 20-degree retroversion cut was made with the oscillating saw. Hum erus was fashioned with an awl, followed by broaches up to a size 5, which had appropriate fit and fi ll. The cup protector was placed and the humerus was retracted posterior to the glenoid. Glenoid wa s fully exposed, demonstrating eburnated bone and articular cartilage and a B2 type wear pattern. Th ere was a blue print custom alignment guide prepared by CT scan preoperatively that was placed in pos ition onto the glenoid and it fit appropriately. The central guide pin was drilled. We used the Per FORM glenoid type component on the glenoid side. Plan was for a 15-degree full wedge implant size 29 baseplate. The reamer was used for the wedge imp lant and set to the appropriate depth. Trial was placed to assure appropriate fit. This was followe d by the boss reamer followed by irrigation and then the 29 mm full wedge 15-degree PerFORM baseplate was screwed into position after the central drill hole was made and measured at 35 mm in depth. A 6 .5 x 35 mm central screw was utilized. There was good fixation. At this time, compression screw was placed at the area of the maximum width of the wedge and then 3 locking screws were placed with exce llent fixation of the baseplate. Trial reductions were performed and there was a tight space due to the patient's preexisting bone loss and medialization and I was only able to get a 39+3 eccentric gle nosphere in position. After that was placed, there was still too much tightness, so I had to resect about 3 more millimeters of the proximal humerus and re-broached the humerus and then we were able to place a +0 high offset trial tray with a 39+6 reversed trial insert and the reduction was stable wit h appropriate tension soft tissues and good passive range of motion. The trials were removed. Then, retractors were replaced and the final glenosphere was placed, which was a 39 mm +3 eccentric glenos phere eccentric offset placed inferiorly. This was impacted in position with good fit and then the s ecurity screw was tightened. Then, the final implant was assembled for the humerus, which was the 5B PTC long stem assembled to the +0 high offset tray and a 39+6 reversed insert. This was Tornier sys tem. This was impacted into position with a tight press fit. This was then reduced to the glenosphe re with satisfactory stability. The wound was copiously irrigated. The pectoralis was repaired with #2 FiberWire sutures, placing th e sutures through the biceps tendon to reinforce the tenodesis. The subscapularis was repaired with transosseous #5 FiberWire sutures were placed in a Trevor-Salvador suture technique with the drill holes and sutures placed prior to implantation of the humerus. The range of motion was assessed and there was 150 degrees of forward flexion, 60 degrees of external rotation and 100 degrees of abduction with out any tension on the repair. After further irrigation, 2 Hemovac drains were placed and then the d eltopectoral interval was repaired with interrupted #1 Vicryl sutures and the subcutaneous tissues we re closed with interrupted 2-0 Vicryl sutures. Skin was closed with jam. Sterile dressings were applied in a shoulder immobilizer. NORY Landis acted as my assistant restaurant general manager. He participated in all aspects of the procedure including prepping, draping, soft tissue retraction and instrument m anagement during the procedure and participated in the outer closure and postoperative care. Job ID: [id number]
[2022-03-25] MEDS ORDERED: METOPROLOL SUCC 25MG EXT REL TAB PO SCH (21:00)
--- NOTE | 2022-03-27 16:38 | Discharge Summary ---
Date of Service March 27, 2022 Admission HPI Per Admitting Provider 82-year-old male with past medical history significant for anxiety, DM2, hypothyroid, aortic stenosis, cardiomyopathy, GERD who presents with longstanding right shoulder pain. Patient has failed conservative measures inc luding anti-inflammatories and cortisone injections. He has significant pain and dysfunction with daily activities. He would like to proceed with surgical intervention. Patient denies headaches, sweats, fevers, chills, double vision, blurred vision, cough, sore throat, dysphagia, chest pain, sob, wheezing, n/v/d/c, numbness, tingling, fatigue, urinary symptoms, mood disorders. ROS positive for right shoulder pain and stiffness. Admission Exam Per Admitting Provider Constitutional: well developed and well nourished; no acute distress Eyes: PERRL, conjunctivae normal, anicteric sclerae ENMT: external ear and nose normal, oropharynx normal Neck: trachea midline, no thyromegaly Respiratory: normal respiratory effort, lungs clear to auscultation Cardiovascular: Rate/Rhythm: regular rate and regular rhythm Heart Sounds: + murmur (Systolic murmur) Extremities: no edema Musculoskeletal: Right shoulder: Crepitation with range of motion. Diffuse tenderness primarily anterior glenoid. Negative impingement signs. Active painful range of motion. Abduction of 30 degrees actively, forward flexion is 60 degrees, external rotation to 10 degrees. He has weakness and pain with strength testing. Skin: no rashes, warm and dry Neurologic: patellar DTR's 2+ bilat, sensation intact Psychiatric: A+Ox3, euthymic affect Principal Diagnosis Right shoulder rotator cuff arthropathy Discharge Exam Shoulder: + ecchymosis, + surgical incision (dressing clean and dry) and + surgical drain present; no deformity rad/med/uln nerve intact, Rad pulse +2 Constitutional well developed and well nourished; no acute distress Discharge Data Allergies Allergy/AdvReac Type Severity Reaction Status Date / Time Sulfa (Sulfonamide Allergy Severe RASH, Verified 03/24/22 05:51 Antibiotics) HIVES, SWOLLEN MOUTH, THROAT SWELLING lisinopril Allergy Intermediate lethargic Verified 03/24/22 05:51 Penicillins Allergy Intermediate RASH, HIVES Verified 03/24/22 05:51 Consultations 03/21/22 14:32 Consult Hospitalist Routine Procedures Performed Operation Date: 03/24/22 07:00 Actual Procedures p Right Reverse Total Shoulder Arthroplasty(Right) - Thomas Johnson MD Ordered Studies 03/24/22 05:00 US - OR guided needle placemen Routine Hospital Course (1) History of reverse total replacement of right shoulder joint: Patient presented for same day admission following right shoulder reverse TSA on 03/24/22. He tolerated procedure well. The Patient had an uneventful hospital course. Post-operatively, his activity was progressed and well tolerated. They participated in PT without difficulty. Labs remained stable. Dr. Nitin Urias of medical service was consulted for medical management during admission. Pain controlled on oral medications. Please refer to daily progress notes and PT notes for complete details. After exam on 03/25/22, patient was felt to be stable for discharge home with. Patient will f/u in the office in about 2 weeks for further evaluation including x-rays and incision check, sooner if having any issues or concerns. POD #1 s/p Right Total Shoulder Arthroplasty Reverse sling cont to ice right shoulder no ROM shoulder, he can do gentle hand/wrist/elbow ROM ASA 81mg po bid d/c hemovac Total Time Total Time Spent Total Time Spent (In Minutes): 20 Discharge Plan Discharge Items Patient Disposition: Home - Self-Care Reason For Visit: Right Shoulder Osteoarthritis Discharge Diagnosis: reverse total shoulder arthroplasty right shoulder Condition on Discharge: Good Activity: Per Instructions section Lifting Comment: no lifting right arm Non-emergency contact: Surgeon Call non-emergency contact if: you have any medication questions, your temperature is above 101, your wound has increased redness, your wound has increased drainage and your wound pain has increased Follow-up/Referrals: Ryan Junior Jr, [Primary Care Provider] - Diet: Regular Addtl Attending Provider Instructions: ACTIVITY RECOMMENDATIONS: SELF CARE INSTRUCTIONS AFTER TOTAL SHOULDER ARTHROPLASTY REVERSE A. You may do daily exercises as taught in physical therapy while in hospital. No lifting with the operative arm. B. You are to wear your sling/immobilizer at all times EXCEPT when performing your daily exercises and for hygiene purposes. C. You may perform dry, daily dressing changes. Please keep your incision covered. You may shower 48 hours after surgery. Do not apply soap or any ointment/lotions directly over incision. Do not soak incision in bath tub/swimming pool. D. You may use ice as needed to operative shoulder. SPECIAL CARE INSTRUCTIONS: VERY IMPORTANT TO READ AND REVIEW A. There are a few signs you need to watch for after you are home. Call [facility] at [phone] if you experience any of the followin. Increased severe shoulder pain. Some pain is expected especially when you exercise. 2. Increased swelling in you shoulder or arm; pain or swelling in either upper extremity. 3. Any fluid drainage from the incision. 4. Shortness of breath or chest pain. B. Please call [facility] at [phone] if you have any questions or concerns about your operation or recovery. C. Call your physician if: 1. Temperature is greater than 101 degrees (F). 2. Pain is not relieved by prescribed pain medications. 3. Increase drainage or redness from incision. 4. Unanswered questions or concerns. FOLLOW UP VISIT: Please call [facility] at [phone] to schedule a follow up appointment with Dr. Johnson or his PA in 12-14 days from your surgery date. Pending Studies at Discharge: No Stand-Alone Forms: My [facility], Smoking Cessation Medications and DC Order Prescriptions: New acetaminophen [Tylenol Extra Strength] 500 mg Tablet 1,000 mg PO Q8 21 Days Qty: 126 RF: 0 aspirin 81 mg Tablet,Delayed Release (Dr/Ec) 81 mg PO BID 30 Days Qty: 60 RF: 0 oxycodone 5 mg Tablet 5 - 10 mg PO Q6H PRN (Reason: pain) Qty: 30 RF: 0 docusate sodium 100 mg Capsule 100 mg PO BID 10 Days Qty: 20 RF: 0 Continued finasteride [Proscar] 5 mg tablet 5 mg PO HS RF: 0 mycophenolate mofetil [CellCept] 250 mg capsule 250 mg PO BID Qty: 120 RF: 2 furosemide [Lasix] 20 mg tablet 20 mg PO QAM RF: 0 alprazolam [Xanax] 0.5 mg tablet 0.25 mg PO PM Qty: 15 RF: 1 terazosin 5 mg capsule 5 mg PO HS RF: 0 Tresiba FlexTouch U-100 100 unit/mL (3 mL) insulin pen 10 unit subcut QAM RF: 0 escitalopram oxalate [Lexapro] 10 mg tablet 10 mg PO QAM RF: 0 famotidine [Pepcid] 40 mg tablet 40 mg PO HS RF: 0 insulin lispro [Humalog U-100 Insulin] 100 unit/mL solution 6 unit subcut QPM RF: 0 levothyroxine 50 mcg capsule 50 mcg PO QAM RF: 0 allopurinol 100 mg tablet 100 mg PO QAM RF: 0 omeprazole 40 mg Capsule,Delayed Release(Dr/Ec) 40 mg PO QAM RF: 0 metoprolol succinate 25 mg Tablet Extended Release 24 Hr 25 mg PO QPM RF: 0 prednisone 5 mg tablet 7.5 mg PO QPM RF: 0 Discharge Orders: Discharge Order (Routine); Ordered 03/25/22 Ordered By: Sheldon Payne Admission Data Admit Date/Time: 03/24/22 11:21 Attending Provider: Thomas Johnson Admit Provider: Thomas Johnson Primary Care Provider: Ryan Junior Jr Other Interventions: Discharge Summary Assessment (RN) Last Done: 03/25/22 10:04
== END 2022-03-25 10:50 | disposition home or self-care (01) ==
LOC: ASU 05:16 → 3W 11:21 → INTOOBSV 11:21

== ENCOUNTER 2022-06-08 12:12 | Inpatient (IN) ==
--- NOTE | 2022-06-08 12:33 | Emergency Department Note ---
Impression & Plan Syncope and collapse, Closed rib fracture ADMIT ED Provider Note HPI: The patient is an 82-year-old male with history of aortic stenosis, type 2 diabetes, chronic kidney disease, hypertension, who presents the emergency department with chief complaint of a syncopal event. Patient states that earlier today he believes that he fell, states he is unclear on the details of what happened, patient states he last remembers opening the storm door to let his dog out of the house, he then remembers waking up on the floor and crawling over to the phone call his daughter who then contacted EMS for the patient to be evaluated. On arrival here to the ED the patient does have some pain in the area of the left posterior scalp where he sustained his laceration in addition t o some right-sided lateral rib/chest pain. He is otherwise alert, ambulates all 4 extremities spontaneously without issue. Patient denies any current chest pain or shortness of breath. On arrival here to the ED the patient is hemodynamically stable. ROS: -Neuro: Syncopal event -HEENT: Scalp laceration -MSK: Rib pain *10 point review systems was conducted and is otherwise negative unless stated above *Outpatient medications and allergy history reviewed PE: General: Alert, NAD HEENT: Normocephalic, 2 cm linear laceration to the posterior left scalp area without active bleeding Eyes: Extraocular eye movement is intact, no scleral erythema Pulmonary: Clear to auscultation bilaterally, no wheezing Cardio: Regular rate and rhythm GI: Abdomen is soft, nontender : No suprapubic tenderness MSK: No evidence of trauma or malformation of the extremities, no edema, palpable tenderness in the area of the right lateral chest wall/rib cage, no crepitus to palpation Skin: No evidence of rash Neuro: Alert, no focal deficits Psychiatric: 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: - An order was placed for continuous cardiac monitoring - Patient was noted to be in sinus rhythm with rate of 58 EKG: Rate: 55 Rhythm: Sinus bradycardia Intervals: QRS 158 ms, otherwise within normal limits ST changes: No ST elevation Time: 1218 Laceration repair: Verbal consent was obtained from the patient Location: Left posterior scalp Length: [2 cm] 3 separate jam were placed over the wound with good approximation of the wound edges Good hemostasis was achieved, patient tolerated the procedure well Medical Decision Making: Patient presented to the emergency department after syncopal event, patient is unaware of what happened, remembers waking up on the ground and calling his daughter. On arrival here to the ED he does complain of some pain in the area of his left posterior scalp where he sustained a laceration. Patient also has some pain in the area of the right anterior and posterior ribs. Patient does have a history of interstitial lung disease, states he does not wear oxygen at home for about the past year, he follows with pulmonology here at [facility] in regards to his disease. Pt did have oxygen saturations in the high 80s on a rrival and was placed on nasal cannula oxygen with good improvement. CT imaging of the head was obtained that shows no evidence of any intracranial bleeding, laceration was repaired as documented in the procedure note. On my reevaluation the patient was complaining more of some right-sided rib pain and therefore I did opt to obtain CT imaging of the chest as well as CT imaging of the abdomen pelvis with IV contrast that does show evidence of multiple rib fractures without any evidence of hemothorax, no pneumothorax, no pulmonary contusion, no liver laceration. Patient does have some displaced fractures posteriorly at ribs 8-9 as well as nondisplaced anterior rib fractures of ribs 5 through 7 on the right side as well. On my reassessment the patient is saturating well on 2 L nasal cannula oxygen. EKG does not show any acute ischemic changes, troponin is negative x1. Hemoglobin is stable, CT imaging of the abdomen pelvis does not show any evidence of intra-abdominal bleeding. Allison ent does have a leukocytosis which she has had chronically thought to be secondary to steroid therapy that he is on for his interstitial lung disease. On my reassessment the patient is adamant that he believes he can manage his symptoms at home, he was ambulatory here in the ED but has significant pain, he required a second dose of morphine. I discussed this with the patient and his daughters at the bedside, patient was eventually agreeable to be admitted to the hospital for pain management and further work-up in regards to his syncopal event. I do feel the patient is a high risk discharge and would benefit from admission. I discussed the case with the on-call hospitalist, Dr. Melo, given that the patient does not have any evidence of intrathoracic traumatic injury such as pneumothorax or hemothorax, no evidence of liver laceration or any intra-abdominal surgical process, patient is thought to be stable for admission here at [facility]. Patient states he does not want to be transferred to a trauma center for consultation, there is no apparent surgical process on his imaging here at [facility]. Dr. Melo is in agreement to accept the patient for further care and work-up in regards to his syncopal event. Patient was in agreement to this plan he was admitted in stable condition. Critical care time: 38 minutes -Stabilization of hypoxia with oxygen saturations less than 90% on room air requiring supplemental oxygen for stabilization, time spent at the bedside, interpretation of diagnostic studies and EKG, discussion with other physicians and arrangement of admission Diagnosis: 1. Hypoxia, acute 2. Syncope and collapse 3. Rib fractures, right-sided, closed 4. Leukocytosis, chronic Disposition: Admission Sheldon Rodríguez DO Emergency Medicine Past Med/Surg History Medical History Accelerated idioventricular rhythm Asymptomatic. Beta-juanjose has been initiated since Holter monitor per cardio records Anxiety Aortic stenosis Mild AV stenosis on 10/15/20 ECHO "AV opens well" on 05/11/21 ECHO -Per 08/2021 cardio note- noted in 2019 - no significant stenosis on most recent ECHO- known sclerotic AV- "no significant stenosis" Benign prostatic hyperplasia Cardiomyopathy LV systolic function has normalized. Etiology of CM unknown. DMII (diabetes mellitus, type 2) Frequent PVCs FOLLOWED BY DR. 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 [facility] History of bilateral knee replacement History of cardiac cath no stents>YEARS AGO AT [facility] History of colonoscopy History of esophagogastroduodenoscopy (EGD) with dilation History of tonsillectomy and adenoidectomy History of wisdom tooth extraction S/P dilatation of esophageal stricture Family History Father Family history of diabetes mellitus Coronary heart disease Prostate cancer Myocardial infarction Uncle Coronary heart disease Sister Breast cancer Other No family history of adverse response to anesthesia Denies family history of Ovarian cancer Colorectal cancer Social History Smoking Status: Never smoker Second Hand Exposure: Yes (IN THE PAST); Hx Alcohol Use: No Hx Substance Use: No Preferred Language: Uruguayan Communication Ability: Effective Visual Impairment: No Limitations Hearing Ability: Normal [employer] Compliance Internship Required: No Beliefs That Will Affect Care: None marital status: / Current Living Situation: Alone current occupational status: retired How many Children do You have: 1 Feels Safe at Home: Yes Assistive Devices: None Allergies Allergies Allergy/AdvReac Type Severity Reaction Status Date / Time Sulfa (Sulfonamide Allergy Severe RASH, Verified 05/18/22 11:18 Antibiotics) HIVES, SWOLLEN MOUTH, THROAT SWELLING lisinopril Allergy Intermediate lethargic Verified 05/18/22 11:18 Penicillins Allergy Intermediate RASH, HIVES Verified 05/18/22 11:18 Home Meds Home Medications Medication Instructions Recorded Confirmed finasteride 5 mg tablet (Proscar) 5 mg PO HS 07/10/19 05/23/22 allopurinol 100 mg tablet 100 mg PO QAM 07/30/19 05/23/22 terazosin 5 mg capsule 5 mg PO HS 01/15/20 05/23/22 escitalopram oxalate 10 mg tablet 10 mg PO QAM 11/02/20 05/23/22 (Lexapro) famotidine 40 mg tablet (Pepcid) 40 mg PO HS 11/02/20 05/23/22 insulin degludec 100 unit/mL (3 10 unit subcut QAM 01/31/21 05/23/22 mL) subcutaneous pen (Tresiba FlexTouch U-100 insulin) insulin lispro 100 unit/mL 6 unit subcut QPM 01/31/21 05/23/22 subcutaneous solution (Humalog U-100 Insulin) levothyroxine 50 mcg capsule 50 mcg PO QAM 01/31/21 05/23/22 furosemide 20 mg tablet (Lasix) 20 mg PO QAM 07/12/21 05/23/22 metoprolol succinate 25 mg 25 mg PO QPM 02/28/22 05/23/22 tablet,extended release 24 hr omeprazole 40 mg capsule,delayed 40 mg PO QAM 02/28/22 05/23/22 release prednisone 5 mg tablet 7.5 mg PO QPM 02/28/22 05/23/22 spironolactone 25 mg tablet 25 mg PO BID 05/23/22 05/23/22 Previous Rx's Medication Instructions Recorded alprazolam 0.5 mg tablet (Xanax) 0.25 mg PO PM #15 tabs 02/14/22 oxycodone 5 mg tablet 5 - 10 mg PO Q6H PRN pain #30 tabs 03/25/22 mycophenolate mofetil 250 mg 250 mg PO BID #120 caps 03/27/22 capsule (CellCept) chlorpheniramine maleate 4 mg 4 mg PO Q12H 30 days #60 tabs 05/23/22 tablet (Allergy Relief (chlorpheniramine)) fluticasone propionate 50 1 spray intranasal BID #18.2 mL 05/23/22 mcg/actuation nasal spray,suspension (Flonase Allergy Relief) pseudoephedrine HCl 120 mg 120 mg PO BID 30 days #60 tabs 05/23/22 tablet,extended release (Sudafed 12 Hour) sodium chloride, sodium See Rx Instructions .Route 05/23/22 bicarb-nasal rinse squeeze bottle .COMPLEX #50 ea with packet (Neilmed Sinus Rinse Complete) oxycodone-acetaminophen 5 mg-325 1 tab PO Q6H PRN pain #20 tabs 06/08/22 mg tablet (Percocet) Results & Data (ED) Vital Signs Vital Signs - 24 hr 06/08/22 12:26 06/08/22 11:56 06/08/22 11:56 Temperature 36.5 C Temperature Source Oral Pulse Rate 55 L Pulse Rate [Apical] Pulse Rhythm [Apical] Respiratory Rate 18 16 Respiratory Effort / Characteristics Non-Labored Respiratory Depth Normal Normal Respiratory Pattern Regular Regular Blood Pressure 155/85 H Blood Pressure [Left Arm] Blood Pressure Mean 108 Blood Pressure Mean [Left Arm] Blood Pressure Position [Left Arm] Pulse Oximetry 99 84 L Oxygen Delivery Method Nasal Cannula Nasal Cannula Oxygen Flow Rate 2 0 Sepsis Recent Fever Within 48 Hours No Sepsis New/Unexplained Change in Mental Status N/A Sepsis Action Taken by Nursing No Action Required Oxygen Flow Rate - Titration 6 Pulse Oximetry Post Tiitration 99 06/08/22 12:20 06/08/22 14:57 06/08/22 13:56 Temperature Temperature Source Pulse Rate Pulse Rate [Apical] 67 62 Pulse Rhythm [Apical] Regular Respiratory Rate 16 16 18 Respiratory Effort / Characteristics Non-Labored Non-Labored Respiratory Depth Normal Normal Respiratory Pattern Regular Regular Blood Pressure Blood Pressure [Left Arm] 145/77 H 145/77 H Blood Pressure Mean Blood Pressure Mean [Left Arm] 99 99 Blood Pressure Position [Left Arm] Lying Lying Pulse Oximetry 99 90 85 L Oxygen Delivery Method Nasal Cannula Room Air Room Air Oxygen Flow Rate 6 Sepsis Recent Fever Within 48 Hours Sepsis New/Unexplained Change in Mental Status Sepsis Action Taken by Nursing Oxygen Flow Rate - Titration Pulse Oximetry Post Tiitration 06/08/22 14:41 Temperature Temperature Source Pulse Rate Pulse Rate [Apical] Pulse Rhythm [Apical] Respiratory Rate Respiratory Effort / Characteristics Respiratory Depth Respiratory Pattern Blood Pressure Blood Pressure [Left Arm] Blood Pressure Mean Blood Pressure Mean [Left Arm] Blood Pressure Position [Left Arm] Pulse Oximetry 85 L Oxygen Delivery Method Room Air Oxygen Flow Rate 0 Sepsis Recent Fever Within 48 Hours Sepsis New/Unexplained Change in Mental Status Sepsis Action Taken by Nursing Oxygen Flow Rate - Titration 2 Pulse Oximetry Post Tiitration 94 Laboratory Data Result diagrams: 06/08/22 12:25 06/08/22 12:25 Lab Results 06/08/22 06/08/22 06/08/22 Range/Units 12:25 12:25 12:25 WBC 14.83 H (4.8-10.8) K/ul RBC 3.62 L (4.63-6.08) M/uL Hgb 11.2 L (14.0-18.0) g/dl Hct 33.3 L (40.1-51.0) % MCV 92.0 (80.0-100.0) fL MCH 30.9 (25.0-34.0) pg MCHC 33.6 (32.0-36.0) g/dL RDW Std Deviation 44.7 (36.4-46.3) fL RDW Coeff of Graham 13.2 (11.5-14.5) % Plt Count 250 (130-400) K/uL MPV 10.4 (9.4-12.4) fL Immature Gran % (Auto) 0.8 % Neut % (Auto) 83.3 % Lymph % (Auto) 7.5 % Dolores % (Auto) 7.3 % Eos % (Auto) 0.6 % Baso % (Auto) 0.5 % Neut # (Auto) 12.35 H (1.4-6.5) K/uL Lymph # (Auto) 1.11 L (1.2-3.4) K/uL Dolores # (Auto) 1.09 H (0.24-0.82) K/uL Eos # (Auto) 0.09 (0-0.50) K/uL Baso # (Auto) 0.07 (0-0.2) K/uL Immature Gran # (Auto) 0.12 H (0.00-0.02) K/uL PT 10.6 (9.0-12.0) Seconds INR 1.0 (0.9-1.1) APTT 23.9 (21.0-31.0) Seconds PTT Ratio 0.9 VBG pH (7.36-7.41) VBG pCO2 (38-50) mmHg VBG pO2 mmHg VBG HCO3 mmol/L VBG O2 Saturation % VBG Base Excess mEq/L Sodium 134 L (136-145) mmol/L Potassium 4.1 (3.5-5.1) mmol/L Chloride 102 (98-107) mmol/L Carbon Dioxide 25 (21-32) mmol/L Anion Gap 7 (3-11) BUN 25 H (6-23) mg/dl Creatinine 1.24 (0.6-1.4) mg/dl Est Cr Clr Drug Dosing 45.8 ml/min Est GFR ( Amer) 61.5 ml/min Est GFR (Non-Af Amer) 53.1 ml/min BUN/Creatinine Ratio 20.2 H (10-20) Glucose 128 H (70-99(Fasting)) mg/dl Lactate (0.4-2.0) mmol/L Calcium 8.7 (8.5-10.1) mg/dl Magnesium 1.8 (1.7-2.4) mg/dl Total Bilirubin 0.5 (0.2-1.0) mg/dl AST 17 (13-39) U/L ALT 14 (7-52) U/L Alkaline Phosphatase 72 (34-104) U/L Troponin I High Sens 12.1 (0-20) pg/ml Total Protein 6.1 (6.0-8.3) gm/dl Albumin 3.7 (3.4-5.0) gm/dl Globulin 2.4 L (2.5-4.0) gm/dl Albumin/Globulin Ratio 1.5 (0.9-2) Procalcitonin (0-0.5) ng/ml TSH (0.300-4.500) uIu/ml 06/08/22 06/08/22 06/08/22 Range/Units 12:25 14:01 14:08 WBC (4.8-10.8) K/ul RBC (4.63-6.08) M/uL Hgb (14.0-18.0) g/dl Hct (40.1-51.0) % MCV (80.0-100.0) fL MCH (25.0-34.0) pg MCHC (32.0-36.0) g/dL RDW Std Deviation (36.4-46.3) fL RDW Coeff of Graham (11.5-14.5) % Plt Count (130-400) K/uL MPV (9.4-12.4) fL Immature Gran % (Auto) % Neut % (Auto) % Lymph % (Auto) % Dolores % (Auto) % Eos % (Auto) % Baso % (Auto) % Neut # (Auto) (1.4-6.5) K/uL Lymph # (Auto) (1.2-3.4) K/uL Dolores # (Auto) (0.24-0.82) K/uL Eos # (Auto) (0-0.50) K/uL Baso # (Auto) (0-0.2) K/uL Immature Gran # (Auto) (0.00-0.02) K/uL PT (9.0-12.0) Seconds INR (0.9-1.1) APTT (21.0-31.0) Seconds PTT Ratio VBG pH (7.36-7.41) VBG pCO2 (38-50) mmHg VBG pO2 mmHg VBG HCO3 mmol/L VBG O2 Saturation % VBG Base Excess mEq/L Sodium (136-145) mmol/L Potassium (3.5-5.1) mmol/L Chloride (98-107) mmol/L Carbon Dioxide (21-32) mmol/L Anion Gap (3-11) BUN (6-23) mg/dl Creatinine (0.6-1.4) mg/dl Est Cr Clr Drug Dosing ml/min Est GFR ( Amer) ml/min Est GFR (Non-Af Amer) ml/min BUN/Creatinine Ratio (10-20) Glucose (70-99(Fasting)) mg/dl Lactate 0.9 (0.4-2.0) mmol/L Calcium (8.5-10.1) mg/dl Magnesium (1.7-2.4) mg/dl Total Bilirubin (0.2-1.0) mg/dl AST (13-39) U/L ALT (7-52) U/L Alkaline Phosphatase (34-104) U/L Troponin I High Sens (0-20) pg/ml Total Protein (6.0-8.3) gm/dl Albumin (3.4-5.0) gm/dl Globulin (2.5-4.0) gm/dl Albumin/Globulin Ratio (0.9-2) Procalcitonin < 0.05 (0-0.5) ng/ml TSH 3.652 (0.300-4.500) uIu/ml 06/08/22 Range/Units 14:08 WBC (4.8-10.8) K/ul RBC (4.63-6.08) M/uL Hgb (14.0-18.0) g/dl Hct (40.1-51.0) % MCV (80.0-100.0) fL MCH (25.0-34.0) pg MCHC (32.0-36.0) g/dL RDW Std Deviation (36.4-46.3) fL RDW Coeff of Graham (11.5-14.5) % Plt Count (130-400) K/uL MPV (9.4-12.4) fL Immature Gran % (Auto) % Neut % (Auto) % Lymph % (Auto) % Dolores % (Auto) % Eos % (Auto) % Baso % (Auto) % Neut # (Auto) (1.4-6.5) K/uL Lymph # (Auto) (1.2-3.4) K/uL Dolores # (Auto) (0.24-0.82) K/uL Eos # (Auto) (0-0.50) K/uL Baso # (Auto) (0-0.2) K/uL Immature Gran # (Auto) (0.00-0.02) K/uL PT (9.0-12.0) Seconds INR (0.9-1.1) APTT (21.0-31.0) Seconds PTT Ratio VBG pH 7.40 (7.36-7.41) VBG pCO2 44 (38-50) mmHg VBG pO2 39 mmHg VBG HCO3 27 mmol/L VBG O2 Saturation 71.2 % VBG Base Excess 2.0 mEq/L Sodium (136-145) mmol/L Potassium (3.5-5.1) mmol/L Chloride (98-107) mmol/L Carbon Dioxide (21-32) mmol/L Anion Gap (3-11) BUN (6-23) mg/dl Creatinine (0.6-1.4) mg/dl Est Cr Clr Drug Dosing ml/min Est GFR ( Amer) ml/min Est GFR (Non-Af Amer) ml/min BUN/Creatinine Ratio (10-20) Glucose (70-99(Fasting)) mg/dl Lactate (0.4-2.0) mmol/L Calcium (8.5-10.1) mg/dl Magnesium (1.7-2.4) mg/dl Total Bilirubin (0.2-1.0) mg/dl AST (13-39) U/L ALT (7-52) U/L Alkaline Phosphatase (34-104) U/L Troponin I High Sens (0-20) pg/ml Total Protein (6.0-8.3) gm/dl Albumin (3.4-5.0) gm/dl Globulin (2.5-4.0) gm/dl Albumin/Globulin Ratio (0.9-2) Procalcitonin (0-0.5) ng/ml TSH (0.300-4.500) uIu/ml Administered Medications Discontinued Medications Albuterol (Albut/Ipratrop 3mg/0.5mg Neb 3 Ml Vial) 3 ml NEB NOW STA; Protocol Stop: 06/08/22 13:25 Last Admin: 06/08/22 13:42 Dose: 3 ml Documented By: SR Diphtheria/Pertussis/Tetanus Vacc (Diphtheria/Tetanus/Pertussis 0.5 Ml Syr/Vial) 0.5 ml IM .ONCE ONE Stop: 06/08/22 13:25 Last Admin: 06/08/22 14:52 Dose: 0.5 ml Documented By: SR Ioversol (Optiray 320 100ml) 93 ml IV ONCE ONE Stop: 06/08/22 14:41 Last Admin: 06/08/22 14:40 Dose: 93 ml Documented By: CORNELIA Methylprednisolone (Methylprednisolone 125 Mg/2 Ml Vial) 125 mg IV NOW STA Stop: 06/08/22 13:25 Last Admin: 06/08/22 13:42 Dose: 125 mg Documented By: SR Morphine Sulfate (Morphine Sulfate 4 Mg/Ml 1 Ml Carp\\Vial) 4 mg IV NOW STA Stop: 06/08/22 13:25 Last Admin: 06/08/22 13:42 Dose: 4 mg Documented By: SR Ondansetron HCl (Ondansetron Inj 2 Mg/Ml 2 Ml Vial) 4 mg IV NOW STA Stop: 06/08/22 13:25 Last Admin: 06/08/22 13:41 Dose: 4 mg Documented By: Imaging Data Radiologist's Impression: Chest X-Ray 06/08/22 12:21 XR chest 1V portable HISTORY: 82 years-old Male syncope acute syncope COMPARISON: Chest radiographs 12/12/2021 TECHNIQUE: Portable AP view of the chest FINDINGS: Cardiac silhouette is enlarged. Atherosclerosis of the aorta. The vascular congestion with chronic interstitial lung disease. There is progressive reticular interstitial coarsening with ill-defined right upper lung opacities. C hronic blunting of the costophrenic angles. Degenerative changes of the spine and left shoulder. Reverse right shoulder total joint arthroplasty. IMPRESSION: 1. Cardiomegaly with pulmonary vascular congestion. 2. Chronic interstitial lung disease. ACT 112: Negative or not required by law. The above report was generated using voice recognition software. It may contain grammatical, syntax or spelling errors. Electronically signed by: Alverto Rico M.D. 06/08/2022 12:[address] 06/08/22 12:29 CT head/brain wo con CLINICAL HISTORY: 82 years-old Male with fall, L post scalp laceration. Acute head trauma status post fall with laceration of the scalp TECHNIQUE: Multiple axial CT images of the head were obtained without contrast. A dose lowering technique was utilized adhering to the principles of ALARA. CT DOSE: 638.56 mGycm COMPARISON: CT sinus 02/22/2022 FINDINGS: No acute intracranial hemorrhage, midline shift, intracranial mass, hydrocephalus, territorial ischemia or abnormal extra-axial collection. Minimal involutional changes. The calvarium is intact. Small contusion with laceration of the left parietal scalp. No opaque foreign body. The paranasal sinuses, mastoid air cells, and middle ear cavities are clear. IMPRESSION: 1. No acute intracranial abnormality or calvarial fracture. 2. Small contusion with laceration of the left parietal scalp. No opaque foreign body. ACT 112: Negative or not required by law. The above report was generated using voice recognition software. It may contain grammatical, syntax or spelling errors. Electronically signed by: Alverto Rico M.D. 06/08/2022 1:20 PM Abdomen/Pelvis CT 06/08/22 13:33 CT abd pelvis IV con only CLINICAL HISTORY: R flank pain s/p fall COMPARISON STUDY: 05/13/2021 CT DOSE: TECHNIQUE: Standard CT of the Abdomen and Pelvis was performed with IV contrast. A dose lowering technique was utilized adhering to the principles of ALARA. Contrast Volume: Optiray 320, 93 ml. The patient did not receive oral con trast. FINDINGS: Lung base: There are mildly displaced fractures of the right ninth and 10th ribs posterolaterally and a nondisplaced fracture of the right 11th rib posterolaterally. There is no evidence for adjacent lung contusion or pneumothorax. Chronic interstitial fibrotic changes are seen at the lung bases, right greater than left. The lung bases are otherwise clear. There is again cardiomegaly with mitral valve calcification. Abdominal cavity: There is no evidence for abdominal mass, adenopathy or ascites. Liver: There is homogeneous attenuation of the liver parenchyma. There is no evidence for enhancing mass lesion. There is no evidence for liver laceration. Spleen: There is homogeneous attenuation of the splenic parenchyma. There is no enhancing mass lesion. Pancreas: There is homogeneous attenuation of the pancreatic parenchyma. There is no evidence for mass lesion or peripancreatic fluid collection. Gall Bladder: The gallbladder is well distended with no evidence for intraluminal calculi, wall thickening or pericholecystic edema. Adrenal glands: The adrenal glands are normal in size and attenuation. There is no evidence for enhancing mass lesion. Kidneys: There is homogeneous attenuation of the renal parenchyma bilaterally. There is no evidence for renal calculus or hydronephrosis. There is no evidence for enhancing mass. Subcentimeter right renal cyst is present. Bowel: The bowel loops are normally placed within the abdomen and pelvis without evidence for dilatation or obstruction. There is no evidence for mass lesion. There is pandiverticulosis which is most marked involving the sigmoid colon. There is no evidence for diverticulitis. There are no inflammatory changes pres ent. There is no evidence for free air. Bladder: The bladder is mildly distended with no evidence for focal mass, calculus or diverticulum. : There is no evidence for pelvic mass or adenopathy. There is no evidence for pelvic ascites. The prostate is enlarged with calcifications present. Vasculature: There is no evidence for aneurysmal dilatation of the abdominal aorta. Atherosclerotic calcification is present. Osseous structures: Bones are osteopenic with degenerative changes seen within the spine. No other fractures are identified. IMPRESSION: 1. Fractures of the right ninth, 10th and 11th ribs posterolaterally with no evidence for adjacent lung contusion or pneumothorax. 2. No evidence for liver laceration. 3. Diverticulosis without evidence for diverticulitis. 4. No other evidence for acute intra-abdominal or pelvic abnormality. 5. Additional nonacute findings are delineated above. This report will be called/faxed to the referring clinician. ACT 112: Positive. There are findings on this exam that require communication between the performing entity and the patient following Patient Test Result Information Act ([place] Act 112) guidelines. Electronically signed by: Víctor Main M.D. 06/08/2022 3:[address] 06/08/22 13:[address] WITH CONTRAST CT DOSE: 798.12 mGy.cm HISTORY: Acute right-sided rib pain status post fall R rib pain s/p fall TECHNIQUE: Multiaxial CT images of the chest were performed following the IV administration of 93 cc of Optiray. A dose lowering technique was utilized adhering to the principles of ALARA. COMPARISON: Chest radiograph of same day, CT abdomen and pelvis of same day, chest CT 12/30/2021 FINDINGS: Unremarkable thyroid. Likely reactive mild paratracheal lymphadenopathy. Cardiomegaly. No pericardial effusion. Mild coronary artery calcifications. Atherosclerosis of the thoracic aorta without aneurysm. Dilated pulmonary arteries suggestive of pulmonary arterial hypertension. Trace right pleural effusion. No pneumothorax. Chronic interstitial lung disease with mild bibasilar traction bronchiectasis. Progressive airspace and groundglass densities of the right upper and lower lobes compared to 12/20/2021 study. There are no suspicious pulmonary nodules or masses identified. The central airways appear patent. No acute process of the imaged upper abdomen. Mild right hemidiaphragmatic elevation. Unremarkable soft tissues. Right shoulder total joint arthroplasty. Acute mildly displaced fractures of the posterior right eighth and ninth ribs. Subtle acute nondisplaced fractures of the anterior right fifth, sixth and seventh ribs. No vertebral body or sternal fracture identified. IMPRESSION: 1. Acute mildly displaced fractures of the posterior right eighth and ninth ribs with acute nondisplaced fractures of the anterior right fifth through seventh ribs. 2. No pneumothorax. 3. Chronic interstitial lung disease, most pronounced within the right upper lobe. 4. Trace right pleural effusion with right basilar densities suggestive of atelectasis. 5. Cardiomegaly with suggestion of pulmonary arterial hypertension. ACT 112: Negative or not required by law. Electronically signed by: Alverto Rico M.D. 06/08/2022 3:13 PM Discharge Plan Visit Data Chief Complaint: Syncope Stated Complaint: SYNCOPE ED Provider: Sheldon Rodríguez Discharge Problem: Syncope and collapse, Closed rib fracture Patient Disposition: Admitted As Inpatient Condition: Good Discharge Instructions Ronan/Other Patient Handouts: ED Rib Fracture, ED [facility] Syncope (Fainting) Forms Stand Alone Forms: [facility], Virtual Emergency Department, Important Visit Information Prescriptions Prescriptions: New oxycodone-acetaminophen [Percocet] 5-325 mg tablet 1 tab PO Q6H PRN (Reason: pain) Qty: 20 0RF No Action finasteride [Proscar] 5 mg tablet 5 mg PO HS mycophenolate mofetil [CellCept] 250 mg capsule 250 mg PO BID Qty: 120 2RF furosemide [Lasix] 20 mg tablet 20 mg PO QAM spironolactone 25 mg tablet 25 mg PO BID Neilmed Sinus Rinse Complete Packet With Rinse Device See Rx Instructions .Route .COMPLEX Qty: 50 3RF Rx Instructions: use daily; chlorpheniramine maleate [Allergy Relief(chlorpheniramn)] 4 mg tablet 4 mg PO Q12H 30 Days Qty: 60 3RF pseudoephedrine HCl [Sudafed 12 Hour] 120 mg tablet extended release 120 mg PO BID 30 Days Qty: 60 3RF fluticasone propionate [Flonase Allergy Relief] 50 mcg/actuation spray,suspension 1 spray intranasal BID Qty: 18.2 2RF Rx Instructions: administer into each nostril alprazolam [Xanax] 0.5 mg tablet 0.25 mg PO PM Qty: 15 1RF terazosin 5 mg capsule 5 mg PO HS Tresiba FlexTouch U-100 100 unit/mL (3 mL) insulin pen 10 unit subcut QAM escitalopram oxalate [Lexapro] 10 mg tablet 10 mg PO QAM famotidine [Pepcid] 40 mg tablet 40 mg PO HS insulin lispro [Humalog U-100 Insulin] 100 unit/mL solution 6 unit subcut QPM Label Comments: TAKES BEFORE EVENING MEAL levothyroxine 50 mcg capsule 50 mcg PO QAM allopurinol 100 mg tablet 100 mg PO QAM omeprazole 40 mg Capsule,Delayed Release(Dr/Ec) 40 mg PO QAM metoprolol succinate 25 mg Tablet Extended Release 24 Hr 25 mg PO QPM prednisone 5 mg tablet 7.5 mg PO QPM oxycodone 5 mg Tablet 5 - 10 mg PO Q6H PRN (Reason: pain) Qty: 30 0RF Rx Instructions: ongoing therapy, supervising Dr Neal Johnson, Max 6 tabs in 24 hours Referrals Referrals: Jon Anthony DO [Surgeon] - Ryan Junior Jr, DO [Physician] - : Closed rib fracture Qualifiers: Encounter type: initial encounter Rib fracture type: multiple ribs Laterality: right Qualified Code(s): S22.41XA - Multiple fractures of ribs, right side, initial encounter for closed fracture
--- NOTE | 2022-06-08 12:38 | XRay Report ---
XR chest 1V portable HISTORY: 82 years-old Male syncope acute syncope COMPARISON: Chest radiographs 12/12/2021 TECHNIQUE: Portable AP view of the chest FINDINGS: Cardiac silhouette is enlarged. Atherosclerosis of the aorta. The vascular congestion with chronic in terstitial lung disease. There is progressive reticular interstitial coarsening with ill-defined righ t upper lung opacities. Chronic blunting of the costophrenic angles. Degenerative changes of the spin e and left shoulder. Reverse right shoulder total joint arthroplasty. IMPRESSION: 1. Cardiomegaly with pulmonary vascular congestion. 2. Chronic interstitial lung disease. ACT 112: Negative or not required by law. The above report was generated using voice recognition software. It may contain grammatical, syntax o r spelling errors. Electronically signed by: Alverto Rico M.D. 06/08/2022 12:37 PM
[2022-06-08 12:42] LABS: Basophils # (auto) 0.07 K/uL (0-0.2); Basophils % (auto) 0.5 %; Eosinophils # (auto) 0.09 K/uL (0-0.50); Eosinophils % (auto) 0.6 %; Hematocrit (blood only) 33.3 % (40.1-51.0); Hemoglobin 11.2 g/dl (14.0-18.0); Immature Granulocytes # (auto) 0.12 K/uL (0.00-0.02); Immature Granulocytes % (auto) 0.8 %; Lymphocytes # (auto) 1.11 K/uL (1.2-3.4); Lymphocytes % (auto) 7.5 %; Mean Corpuscular Hemoglobin 30.9 pg (25.0-34.0); Mean Corpuscular Hgb Conc 33.6 g/dL (32.0-36.0); Mean Platelet Volume 10.4 fL (9.4-12.4); Monocytes # (auto) 1.09 K/uL (0.24-0.82); Monocytes % (auto) 7.3 %; Neutrophils # (auto) 12.35 K/uL (1.4-6.5); Neutrophils % (auto) 83.3 %; Platelet Count 250 K/uL (130-400); RDW Coefficient of Variation 13.2 % (11.5-14.5); RDW Standard Deviation 44.7 fL (36.4-46.3); Red Blood Count 3.62 M/uL (4.63-6.08); White Blood Count 14.83 K/ul (4.8-10.8)
[2022-06-08 12:48] LABS: Partial Thromboplastin Ratio 0.9; Partial Thromboplastin Time 23.9 Seconds (21.0-31.0); Prothrombin Time 10.6 Seconds (9.0-12.0)
[2022-06-08 13:09] LABS: Troponin I High Sensitivity 12.1 pg/ml (0-20)
[2022-06-08 13:16] LABS: Albumin Globulin Ratio 1.5 (0.9-2); Albumin Level 3.7 gm/dl (3.4-5.0); BUN Creatinine Ratio 20.2 (10-20); Bilirubin,Total 0.5 mg/dl (0.2-1.0); Calcium 8.7 mg/dl (8.5-10.1); Creatinine Clr Calc Pharmacy 45.8 ml/min; Est GFR (African American) 61.5 ml/min; Est GFR (Non-African American) 53.1 ml/min; Globulin 2.4 gm/dl (2.5-4.0); Magnesium 1.8 mg/dl (1.7-2.4); Potassium 4.1 mmol/L (3.5-5.1); Total Protein 6.1 gm/dl (6.0-8.3)
--- NOTE | 2022-06-08 13:21 | CT Scan Report ---
CT head/brain wo con CLINICAL HISTORY: 82 years-old Male with fall, L post scalp laceration. Acute head trauma status pos t fall with laceration of the scalp TECHNIQUE: Multiple axial CT images of the head were obtained without contrast. A dose lowering tech nique was utilized adhering to the principles of ALARA. CT DOSE: 638.56 mGycm COMPARISON: CT sinus 02/22/2022 FINDINGS: No acute intracranial hemorrhage, midline shift, intracranial mass, hydrocephalus, territorial ischem ia or abnormal extra-axial collection. Minimal involutional changes. The calvarium is intact. Small contusion with laceration of the left parietal scalp. No opaque foreig n body. The paranasal sinuses, mastoid air cells, and middle ear cavities are clear. IMPRESSION: 1. No acute intracranial abnormality or calvarial fracture. 2. Small contusion with laceration of the left parietal scalp. No opaque foreign body. ACT 112: Negative or not required by law. The above report was generated using voice recognition software. It may contain grammatical, syntax o r spelling errors. Electronically signed by: Alverto Rico M.D. 06/08/2022 1:20 PM
[2022-06-08] MEDS ORDERED: ALBUT/IPRATROP 3MG/0.5MG NEB 3 ML VIAL NEB STA (13:24)
[2022-06-08] MEDS ORDERED: DIPHTHERIA/TETANUS/PERTUSSIS 0.5 ML SYR/VIAL IM ONE (13:24)
[2022-06-08] MEDS ORDERED: MoRPHine SULFATE 4 MG/ML 1 ML CARP\\VIAL IV STA ×2 (13:24→16:05)
[2022-06-08] MEDS ORDERED: methylPREDNISolone 125 MG/2 ML VIAL IV STA (13:24)
[2022-06-08] MEDS ORDERED: ONDANSETRON INJ 2 MG/ML 2 ML VIAL IV STA (13:24)
[2022-06-08 14:18] LABS: HCO3 VBG 27 mmol/L; Oxygen Saturation VBG 71.2 %; PCO2 VBG 44 mmHg (38-50); PO2 VBG 39 mmHg
[2022-06-08] MEDS ORDERED: OPTIRAY 320 100ml IV ONE (14:40)
--- NOTE | 2022-06-08 15:14 | CT Scan Report ---
CHEST CT WITH CONTRAST CT DOSE: 798.12 mGy.cm HISTORY: Acute right-sided rib pain status post fall R rib pain s/p fall TECHNIQUE: Multiaxial CT images of the chest were performed following the IV administration of 93 cc of Optiray. A dose lowering technique was utilized adhering to the principles of ALARA. COMPARISON: Chest radiograph of same day, CT abdomen and pelvis of same day, chest CT 12/30/2021 FINDINGS: Unremarkable thyroid. Likely reactive mild paratracheal lymphadenopathy. Cardiomegaly. No p ericardial effusion. Mild coronary artery calcifications. Atherosclerosis of the thoracic aorta witho ut aneurysm. Dilated pulmonary arteries suggestive of pulmonary arterial hypertension. Trace right pleural effusion. No pneumothorax. Chronic interstitial lung disease with mild bibasilar traction bronchiectasis. Progressive airspace and groundglass densities of the right upper and lower lobes compared to 12/20/2021 study. There are no suspicious pulmonary nodules or masses identified. The central airways appear patent. No acute process of the imaged upper abdomen. Mild right hemidiaphragmatic elevation. Unremarkable so ft tissues. Right shoulder total joint arthroplasty. Acute mildly displaced fractures of the posterio r right eighth and ninth ribs. Subtle acute nondisplaced fractures of the anterior right fifth, sixth and seventh ribs. No vertebral body or sternal fracture identified. IMPRESSION: 1. Acute mildly displaced fractures of the posterior right eighth and ninth ribs with acute nondispla todd fractures of the anterior right fifth through seventh ribs. 2. No pneumothorax. 3. Chronic interstitial lung disease, most pronounced within the right upper lobe. 4. Trace right pleural effusion with right basilar densities suggestive of atelectasis. 5. Cardiomegaly with suggestion of pulmonary arterial hypertension. ACT 112: Negative or not required by law. Electronically signed by: Alverto Rico M.D. 06/08/2022 3:13 PM
--- NOTE | 2022-06-08 15:24 | CT Scan Report ---
CT abd pelvis IV con only CLINICAL HISTORY: R flank pain s/p fall COMPARISON STUDY: 05/13/2021 CT DOSE: TECHNIQUE: Standard CT of the Abdomen and Pelvis was performed with IV contrast. A dose lowering rich hnique was utilized adhering to the principles of ALARA. Contrast Volume: Optiray 320, 93 ml. The patient did not receive oral contrast. FINDINGS: Lung base: There are mildly displaced fractures of the right ninth and 10th ribs posterolaterally and a nondisplaced fracture of the right 11th rib posterolaterally. There is no evidence for adjacent jose manuel ng contusion or pneumothorax. Chronic interstitial fibrotic changes are seen at the lung bases, right greater than left. The lung b ases are otherwise clear. There is again cardiomegaly with mitral valve calcification. Abdominal cavity: There is no evidence for abdominal mass, adenopathy or ascites. Liver: There is homogeneous attenuation of the liver parenchyma. There is no evidence for enhancing m ass lesion. There is no evidence for liver laceration. Spleen: There is homogeneous attenuation of the splenic parenchyma. There is no enhancing mass lesion . Pancreas: There is homogeneous attenuation of the pancreatic parenchyma. There is no evidence for mas s lesion or peripancreatic fluid collection. Gall Bladder: The gallbladder is well distended with no evidence for intraluminal calculi, wall thick ening or pericholecystic edema. Adrenal glands: The adrenal glands are normal in size and attenuation. There is no evidence for enhan cing mass lesion. Kidneys: There is homogeneous attenuation of the renal parenchyma bilaterally. There is no evidence f or renal calculus or hydronephrosis. There is no evidence for enhancing mass. Subcentimeter right farideh al cyst is present. Bowel: The bowel loops are normally placed within the abdomen and pelvis without evidence for dilatat ion or obstruction. There is no evidence for mass lesion. There is pandiverticulosis which is most ma rked involving the sigmoid colon. There is no evidence for diverticulitis. There are no inflammatory changes present. There is no evidence for free air. Bladder: The bladder is mildly distended with no evidence for focal mass, calculus or diverticulum. : There is no evidence for pelvic mass or adenopathy. There is no evidence for pelvic ascites. The prostate is enlarged with calcifications present. Vasculature: There is no evidence for aneurysmal dilatation of the abdominal aorta. Atherosclerotic c alcification is present. Osseous structures: Bones are osteopenic with degenerative changes seen within the spine. No other fr actures are identified. IMPRESSION: 1. Fractures of the right ninth, 10th and 11th ribs posterolaterally with no evidence for adjacent jose manuel ng contusion or pneumothorax. 2. No evidence for liver laceration. 3. Diverticulosis without evidence for diverticulitis. 4. No other evidence for acute intra-abdominal or pelvic abnormality. 5. Additional nonacute findings are delineated above. This report will be called/faxed to the referring clinician. ACT 112: Positive. There are findings on this exam that require communication between the performing entity and the patient following Patient Test Result Information Act ([place] Act 112) guidelines. Electronically signed by: Víctor Main M.D. 06/08/2022 3:22 PM
[2022-06-08] MEDS ORDERED: oxyCODONE/ACETAMINOPHEN 5mg/325mg TAB PO STA (15:33)
[2022-06-08] MEDS ORDERED: ACETAMINOPHEN 325 MG TAB PO STA (16:30)
[2022-06-08] MEDS ORDERED: KETOROLAC TROMETHAMINE 15 MG/ML VIAL IV ONE (16:30)
--- NOTE | 2022-06-08 16:57 | History & Physical Report ---
Date of Service June 08, 2022 Assessment & Plan (1) Syncope and collapse: Plan: As per HPI syncope preceded by dizziness and flush feeling- on BB, Lasix, Spironolactone, Terazosin, Flomax at home - Patient with history of LVH with preserved EF 55-60% noted on ECHO from 2020- previously 2019 (35%) - Had a Holter monitor in 2019- had re-initiation of BB at that time - remains on Lasix and spironolactone- will hold these and follow his volume status - Telemetry overnight follow - no pain or change to his right shoulder arthroplasty interpreted on CXR - Without cervical pain or thoracic spine pain- cervical spine cleared clinically with ROM, palpation, (2) Closed rib fracture: Plan: Posterior and lateral rib fractures without evidence of hemothorax/pneumothorax at this time - underlying ILD - [place] control and deep breathing will be imperative to prevent atelectasis/pneumonia - Lidocaine patch now, Tylenol 650mg PO now, Toradol 10mg IV now x1, Oxy IR 5mg PO prn q6, Hydromorphone 0.5mg IV q6prn severe pain - Splinting of right side - ICS q1 hour, with q2 hour turning coughing and deep breathing - IF pain poorly controlled or change consider pain consultation for evaluation of intercostal block or adjuvant medications (3) Interstitial lung disease: Plan: Follows with Dr. Mares - cause remains uncertain declined open lung biopsy in the past did have bronch - remains on Cellcept- continue - His prednisone has been titrated down and is on 5mg orally daily - continue PRN nebulizer for the above (4) Aortic stenosis: Plan: Chronic stable - follow volume status as above - hold diuretics tonight restart when appropriate or intermittent dosing (5) GERD (gastroesophageal reflux disease): Plan: Continue PPI and H2 (6) Accelerated idioventricular rhythm: Plan: History of- HR ranging from 55-60 with Pwaves noted on ECG - as above telemetry (7) Benign prostatic hyperplasia: Plan: Continue with Terazosin and Flomax at night (8) Cardiomyopathy: Plan: As above - stable at this time consider need for repeat ECHO following hemodynamics and symptoms overnight (9) Leukocytosis: Plan: Chronically 11-12 with steroids, increase today is likely reactionary - he did get 125mg of solumederol in the EMD on presentation - follow fever curve overnight expect some further demargination in AM. - no indication at this time for abx History of Present Illness Primary Care Provider: NO PCP 82 YOM with medical history of: ILD( on CellCept/prednisone), DMII, acquired hypothyroidism, HTN, anemia, chronic cough, GERD, BPH, GOUT, Aortic stenosis, susi cardia. Patient comes to the [facility] today following syncopal episode at home. Patient reports that he remembers going to the door to let the dog out this morning and then woke up on the floor- he woke up and crawled to the phone to call for help. He is unsure how long he was on the floor for or remembering how he got there. He does endorse that he remembers feeling dizzy and warm flushing while putting the dog out. Patient endorses that he frequently gets light headed and dizzy with these feelings when sitting and then standing especially if he has been sitting for a decent amount of time. He reports that this has been ongoing for a few months. The patient did have a scalp laceration on presentation to the [facility] and that was repaired by EMD. He remembers his right side of chest hurting after he fell. In the EMD the patient had routine labs performed to include HScTNI, CXR, ECG, CT of head and chest and abdomen/pelvis. CXR and CT of chest revealed right posterior 8/9 ribs and right 5-7 ribs. He was given oral and IV pain medication as well as a splinting device for his ribs and ICS. Hospitalist service was consulted for admission. Patient remains with pain to his right side. He is neurologically intact and endorses no new pain or weakness that is new. He has no cervical or thoracic spine pain. Patient will be admitted to PCU for following of telemetry aggressive pain control and cough deep breathing and ICS. COVID test on admission is: NEGATIVE Allergies Allergy/AdvReac Type Severity Reaction Status Date / Time Sulfa (Sulfonamide Allergy Severe RASH, Verified 06/08/22 16:40 Antibiotics) HIVES, SWOLLEN MOUTH, THROAT SWELLING lisinopril Allergy Intermediate lethargic Verified 06/08/22 16:40 Penicillins Allergy Intermediate RASH, HIVES Verified 06/08/22 16:40 Home Medications Medication Instructions Recorded Confirmed Type finasteride 5 mg tablet (Proscar) 5 mg PO HS 07/10/19 06/08/22 History allopurinol 100 mg tablet 100 mg PO QAM 07/30/19 06/08/22 History terazosin 5 mg capsule 5 mg PO HS 01/15/20 06/08/22 History escitalopram oxalate 10 mg tablet 10 mg PO QAM 11/02/20 06/08/22 History (Lexapro) famotidine 40 mg tablet (Pepcid) 40 mg PO HS 11/02/20 06/08/22 History insulin degludec 100 unit/mL (3 10 unit subcut QAM 01/31/21 06/08/22 History mL) subcutaneous pen (Tresiba FlexTouch U-100 insulin) insulin lispro 100 unit/mL 6 unit subcut QPM 01/31/21 06/08/22 History subcutaneous solution (Humalog U-100 Insulin) levothyroxine 50 mcg capsule 50 mcg PO QAM 01/31/21 06/08/22 History furosemide 20 mg tablet (Lasix) 20 mg PO QAM 07/12/21 06/08/22 History alprazolam 0.5 mg tablet (Xanax) 0.25 mg PO PM #15 tabs 02/14/22 06/08/22 Rx metoprolol succinate 25 mg 25 mg PO QPM 02/28/22 06/08/22 History tablet,extended release 24 hr omeprazole 40 mg capsule,delayed 40 mg PO QAM 02/28/22 06/08/22 History release prednisone 5 mg tablet 5 mg PO QPM 02/28/22 06/08/22 History mycophenolate mofetil 250 mg 250 mg PO BID #120 caps 03/27/22 06/08/22 Rx capsule (CellCept) chlorpheniramine maleate 4 mg 4 mg PO Q12H 30 days #60 tabs 05/23/22 06/08/22 Rx tablet (Allergy Relief (chlorpheniramine)) fluticasone propionate 50 1 spray intranasal BID #18.2 mL 05/23/22 06/08/22 Rx mcg/actuation nasal spray,suspension (Flonase Allergy Relief) spironolactone 25 mg tablet 12.5 mg PO QAM 05/23/22 06/08/22 History oxycodone-acetaminophen 5 mg-325 1 tab PO Q6H PRN pain #20 tabs 06/08/22 06/08/22 Rx mg tablet (Percocet) Past Med/Surg History Medical History Accelerated idioventricular rhythm Asymptomatic. Beta-juanjose has been initiated since Holter monitor per cardio records Anxiety Aortic stenosis Mild AV stenosis on 10/15/20 ECHO "AV opens well" on 05/11/21 ECHO -Per 08/2021 cardio note- noted in 2019 - no significant stenosis on most recent ECHO- known sclerotic AV- "no significant stenosis" Benign prostatic hyperplasia Cardiomyopathy LV systolic function has normalized. Etiology of CM unknown. DMII (diabetes mellitus, type 2) Frequent PVCs FOLLOWED BY DR. 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 [facility] [place] History of bilateral knee replacement History of cardiac cath no stents>YEARS AGO AT [facility] History of colonoscopy History of esophagogastroduodenoscopy (EGD) with dilation History of tonsillectomy and adenoidectomy History of wisdom tooth extraction S/P dilatation of esophageal stricture Family History Father Family history of diabetes mellitus Coronary heart disease Prostate cancer Myocardial infarction Uncle Coronary heart disease Sister Breast cancer Other No family history of adverse response to anesthesia Denies family history of Ovarian cancer Colorectal cancer Social History Smoking Status: Never smoker Second Hand Exposure: No; Do You Dip or Chew Tobacco: No; Hx Alcohol Use: No Hx Substance Use: No Preferred Language: Upper Sorbian Communication Ability: Effective Visual Impairment: No Limitations Hearing Ability: Normal [employer] Required: No Beliefs That Will Affect Care: None marital status: / Current Living Situation: Alone current occupational status: retired How many Children do You have: 1 Other Information That Helps Us Care for You: No Feels Safe at Home: Yes Safety Concerns: Feels Safe At This Time Assistive Devices: Oxygen - at Night Assistive Devices Comment: patient reports he doesn't wear O2 at home Review of Systems Review of Systems: REVIEW OF SYSTEMS: Constitutional: No fever, sweats or chills Eyes: No diplopia, no worsening or blurred vision ENT: normal hearing, no trouble swallowing Respiratory: (+) chronic cough, dyspnea, sputum, dyspnea at rest or on exertion Cardiovascular: (+) dizziness, No chest pain, tightness or palpitations Abdomen: No pain, nausea, vomiting, diarrhea or constipation Musculoskeletal: (+) chronic joint shoulder pain, calf pain, swelling Neurologic: No weakness, numbness/tingling, or balance problems Psychiatric: No anxiety or depression Skin: No rash or itch Physical Exam Physical Exam: PHYSICAL EXAM: General: awake, alert, no apparent distress Head: Normocephalic, posterior scalp laceration repaired by EMD jam. ENT: PERRL, EOMI, no pharyngeal exudate, mucous membranes moist Neuro: AAO x 3, speech clear and appropriate, strength intact bilaterally 5/5, sensation intact and equal all extremities and dermatomes, no pronator drift, no cervical pain with palpation, clear mentation, full range of motion passive without pain and full range of motion against resistance without pain or radiculopathy to arms shoulders hands. Chest: pain to right lateral posterior chest wall, decreased inspiration, expiratory wheeze Cardiac: Regular rate and rhythm, telemetry reviewed- sinus, skin warm dry, cap refill <3 seconds, peripheral pulses +2 no JVD, Grade II systolic murmur, no JVD, no edema GI: NABS x 4 quadrants, soft, nontender to palpation, no rebound, guarding or tenderness : Spontaneously voiding, no pain, no CVA tenderness, MSK: Hips and pelvis stable Extremities: Normal inspection, no peripheral edema or erythema, calfs nontender to palpation Psych: Normal mood and affect Skin: no rash or erythema Results & Data Results & Data ([facility]) Vital Signs (Past 12 Hours) Vital Signs Temp Pulse Pulse Resp BP BP Pulse Ox 06/08/22 14:41 85 L 06/08/22 13:56 62 18 145/77 H 85 L 06/08/22 14:57 67 16 145/77 H 90 06/08/22 12:20 16 99 06/08/22 11:56 16 06/08/22 11:56 84 L 06/08/22 12:26 36.5 C 55 L 18 155/85 H 99 O2 Del Method O2 Flow Rate 06/08/22 14:41 Room Air 0 06/08/22 13:56 Room Air 06/08/22 14:57 Room Air 06/08/22 12:20 Nasal Cannula 6 06/08/22 11:56 06/08/22 11:56 Nasal Cannula 0 06/08/22 12:26 Nasal Cannula 2 Laboratory Results Laboratory Results - last 24 hr 06/08/22 06/08/22 06/08/22 12:25 12:25 12:25 WBC 14.83 H RBC 3.62 L Hgb 11.2 L Hct 33.3 L MCV 92.0 MCH 30.9 MCHC 33.6 RDW Std Deviation 44.7 RDW Coeff of Graham 13.2 Plt Count 250 MPV 10.4 Immature Gran % (Auto) 0.8 Neut % (Auto) 83.3 Lymph % (Auto) 7.5 [place] % (Auto) 7.3 Eos % (Auto) 0.6 Baso % (Auto) 0.5 Neut # (Auto) 12.35 H Lymph # (Auto) 1.11 L [place] # (Auto) 1.09 H Eos # (Auto) 0.09 Baso # (Auto) 0.07 Immature Gran # (Auto) 0.12 H PT 10.6 INR 1.0 APTT 23.9 PTT Ratio 0.9 VBG pH VBG pCO2 VBG pO2 VBG HCO3 VBG O2 Saturation VBG Base Excess Sodium 134 L Potassium 4.1 Chloride 102 Carbon Dioxide 25 Anion Gap 7 BUN 25 H Creatinine 1.24 Est Cr Clr Drug Dosing 45.8 Est GFR ( Amer) 61.5 Est GFR (Non-Af Amer) 53.1 BUN/Creatinine Ratio 20.2 H Glucose 128 H Lactate Calcium 8.7 Magnesium 1.8 Total Bilirubin 0.5 AST 17 ALT 14 Alkaline Phosphatase 72 Troponin I High Sens 12.1 Total Protein 6.1 Albumin 3.7 Globulin 2.4 L Albumin/Globulin Ratio 1.5 Procalcitonin TSH SARS-CoV-2, RNA, NAAT 07/28/22 07/28/22 07/28/22 12:25 14:01 14:08 WBC RBC Hgb Hct MCV MCH MCHC RDW Std Deviation RDW Coeff of [place] Plt Count MPV Immature Gran % (Auto) Neut % (Auto) Lymph % (Auto) [place] % (Auto) Eos % (Auto) Baso % (Auto) Neut # (Auto) Lymph # (Auto) [place] # (Auto) Eos # (Auto) Baso # (Auto) Immature Gran # (Auto) PT INR APTT PTT Ratio VBG pH VBG pCO2 VBG pO2 VBG HCO3 VBG O2 Saturation VBG Base Excess Sodium Potassium Chloride Carbon Dioxide Anion Gap BUN Creatinine Est Cr Clr Drug Dosing Est GFR ( Amer) Est GFR (Non-Af Amer) BUN/Creatinine Ratio Glucose Lactate 0.9 Calcium Magnesium Total Bilirubin AST ALT Alkaline Phosphatase Troponin I High Sens Total Protein Albumin Globulin Albumin/Globulin Ratio Procalcitonin < 0.05 TSH 3.652 SARS-CoV-2, RNA, NAAT 06/08/22 06/08/22 14:08 14:55 WBC RBC Hgb Hct MCV MCH MCHC RDW Std Deviation RDW Coeff of [place] Plt Count MPV Immature Gran % (Auto) Neut % (Auto) Lymph % (Auto) [place] % (Auto) Eos % (Auto) Baso % (Auto) Neut # (Auto) Lymph # (Auto) [place] # (Auto) Eos # (Auto) Baso # (Auto) Immature Gran # (Auto) PT INR APTT PTT Ratio VBG pH 7.40 VBG pCO2 44 VBG pO2 39 VBG HCO3 27 VBG O2 Saturation 71.2 VBG Base Excess 2.0 Sodium Potassium Chloride Carbon Dioxide Anion Gap BUN Creatinine Est Cr Clr Drug Dosing Est GFR ( Amer) Est GFR (Non-Af Amer) BUN/Creatinine Ratio Glucose Lactate Calcium Magnesium Total Bilirubin AST ALT Alkaline Phosphatase Troponin I High Sens Total Protein Albumin Globulin Albumin/Globulin Ratio Procalcitonin TSH SARS-CoV-2, RNA, NAAT NEGATIVE Diagnostic Findings Chest X-Ray 06/08/22 12:21 XR chest 1V portable HISTORY: 82 years-old Male syncope acute syncope COMPARISON: Chest radiographs 12/12/2021 TECHNIQUE: Portable AP view of the chest FINDINGS: Cardiac silhouette is enlarged. Atherosclerosis of the aorta. The vascular congestion with chronic interstitial lung disease. There is progressive reticular interstitial coarsening with ill-defined right upper lung opacities. Chronic blunting of the costophrenic angles. Degenerative changes of the spine and left shoulder. Reverse right shoulder total joint arthroplasty. IMPRESSION: 1. Cardiomegaly with pulmonary vascular congestion. 2. Chronic interstitial lung disease. ACT 112: Negative or not required by law. The above report was generated using voice recognition software. It may contain grammatical, syntax or spelling errors. Electronically signed by: Alverto Rico M.D. 06/08/2022 12:[address] 06/08/22 12:29 CT head/brain wo con CLINICAL HISTORY: 82 years-old Male with fall, L post scalp laceration. Acute head trauma status post fall with laceration of the scalp TECHNIQUE: Multiple axial CT images of the head were obtained without contrast. A dose lowering technique was utilized adhering to the principles of ALARA. CT DOSE: 638.56 mGycm COMPARISON: CT sinus 02/22/2022 FINDINGS: No acute intracranial hemorrhage, midline shift, intracranial mass, hydrocephalus, territorial ischemia or abnormal extra-axial collection. Minimal involutional changes. The calvarium is intact. Small contusion with laceration of the left parietal scalp. No opaque foreign body. The paranasal sinuses, mastoid air cells, and middle ear cavities are clear. IMPRESSION: 1. No acute intracranial abnormality or calvarial fracture. 2. Small contusion with laceration of the left parietal scalp. No opaque foreign body. ACT 112: Negative or not required by law. The above report was generated using voice recognition software. It may contain grammatical, syntax or spelling errors. Electronically signed by: Alverto Rico M.D. 06/08/2022 1:20 PM Abdomen/Pelvis CT 06/08/22 13:33 CT abd pelvis IV con only CLINICAL HISTORY: R flank pain s/p fall COMPARISON STUDY: 05/13/2021 CT DOSE: TECHNIQUE: Standard CT of the Abdomen and Pelvis was performed with IV contrast. A dose lowering technique was utilized adhering to the principles of ALARA. Contrast Volume: Optiray 320, 93 ml. The patient did not receive oral contrast. FINDINGS: Lung base: There are mildly displaced fractures of the right ninth and 10th ribs posterolaterally and a nondisplaced fracture of the right 11th rib posterolaterally. There is no evidence for adjacent lung contusion or pneumothorax. Chronic interstitial fibrotic changes are seen at the lung bases, right greater than left. The lung bases are otherwise clear. There is again cardiomegaly with mitral valve calcification. Abdominal cavity: There is no evidence for abdominal mass, adenopathy or ascites. Liver: There is homogeneous attenuation of the liver parenchyma. There is no evidence for enhancing mass lesion. There is no evidence for liver laceration. Spleen: There is homogeneous attenuation of the splenic parenchyma. There is no enhancing mass lesion. Pancreas: There is homogeneous attenuation of the pancreatic parenchyma. There is no evidence for mass lesion or peripancreatic fluid collection. Gall Bladder: The gallbladder is well distended with no evidence for intraluminal calculi, wall thickening or pericholecystic edema. Adrenal glands: The adrenal glands are normal in size and attenuation. There is no evidence for enhancing mass lesion. Kidneys: There is homogeneous attenuation of the renal parenchyma bilaterally. There is no evidence for renal calculus or hydronephrosis. There is no evidence for enhancing mass. Subcentimeter right renal cyst is present. Bowel: The bowel loops are normally placed within the abdomen and pelvis without evidence for dilatation or obstruction. There is no evidence for mass lesion. There is pandiverticulosis which is most marked involving the sigmoid colon. There is no evidence for diverticulitis. There are no inflammatory changes present. There is no evidence for free air. Bladder: The bladder is mildly distended with no evidence for focal mass, calculus or diverticulum. : There is no evidence for pelvic mass or adenopathy. There is no evidence for pelvic ascites. The prostate is enlarged with calcifications present. Vasculature: There is no evidence for aneurysmal dilatation of the abdominal aorta. Atherosclerotic calcification is present. Osseous structures: Bones are osteopenic with degenerative changes seen within the spine. No other fractures are identified. IMPRESSION: 1. Fractures of the right ninth, 10th and 11th ribs posterolaterally with no evidence for adjacent lung contusion or pneumothorax. 2. No evidence for liver laceration. 3. Diverticulosis without evidence for diverticulitis. 4. No other evidence for acute intra-abdominal or pelvic abnormality. 5. Additional nonacute findings are delineated above. This report will be called/faxed to the referring clinician. ACT 112: Positive. There are findings on this exam that require communication between the performing entity and the patient following Patient Test Result Information Act ([place] Act 112) guidelines. Electronically signed by: Víctor Main M.D. 06/08/2022 3:[address] 06/08/22 13:[address] WITH CONTRAST CT DOSE: 798.12 mGy.cm HISTORY: Acute right-sided rib pain status post fall R rib pain s/p fall TECHNIQUE: Multiaxial CT images of the chest were performed following the IV a dministration of 93 cc of Optiray. A dose lowering technique was utilized adhering to the principles of ALARA. COMPARISON: Chest radiograph of same day, CT abdomen and pelvis of same day, chest CT 12/30/2021 FINDINGS: Unremarkable thyroid. Likely reactive mild paratracheal lymphadenopathy. Cardiomegaly. No pericardial effusion. Mild coronary artery calcifications. Atherosclerosis of the thoracic aorta without aneurysm. Dilated pulmonary arteries suggestive of pulmonary arterial hypertension. Trace right pleural effusion. No pneumothorax. Chronic interstitial lung disease with mild bibasilar traction bronchiectasis. Progressive airspace and groundglass densities of the right upper and lower lobes compared to 12/20/2021 study. There are no suspicious pulmonary nodules or masses identified. The central airways appear patent. No acute process of the imaged upper abdomen. Mild right hemidiaphragmatic elevation. Unremarkable soft tissues. Right shoulder total joint arthroplasty. Acute mildly displaced fractures of the posterior right eighth and ninth ribs. Subtle acute nondisplaced fractures of the anterior right fifth, sixth and seventh ribs. No vertebral body or sternal fracture identified. IMPRESSION: 1. Acute mildly displaced fractures of the posterior right eighth and ninth ribs with acute nondisplaced fractures of the anterior right fifth through seventh ribs. 2. No pneumothorax. 3. Chronic interstitial lung disease, most pronounced within the right upper lobe. 4. Trace right pleural effusion with right basilar densities suggestive of atelectasis. 5. Cardiomegaly with suggestion of pulmonary arterial hypertension. ACT 112: Negative or not required by law. Electronically signed by: Alverto Rico M.D. 06/08/2022 3:13 PM Medications Administered Home Medications finasteride 5 mg tablet (Proscar) 5 mg PO HS 07/10/19 [History Confirmed 06/08/22] allopurinol 100 mg tablet 100 mg PO QAM 07/30/19 [History Confirmed 06/08/22] terazosin 5 mg capsule 5 mg PO HS 01/15/20 [History Confirmed 06/08/22] escitalopram oxalate 10 mg tablet (Lexapro) 10 mg PO QAM 11/02/20 [History Confirmed 06/08/22] famotidine 40 mg tablet (Pepcid) 40 mg PO HS 11/02/20 [History Confirmed 06/08/22] insulin degludec 100 unit/mL (3 mL) subcutaneous pen (Tresiba FlexTouch U-100 insulin) 10 unit subcut QAM 01/31/21 [History Confirmed 06/08/22] insulin lispro 100 unit/mL subcutaneous solution (Humalog U-100 Insulin) 6 unit subcut QPM 01/31/21 [History Confirmed 06/08/22] levothyroxine 50 mcg capsule 50 mcg PO QAM 01/31/21 [History Confirmed 06/08/22] furosemide 20 mg tablet (Lasix) 20 mg PO QAM 07/12/21 [History Confirmed 06/08/22] alprazolam 0.5 mg tablet (Xanax) 0.25 mg PO PM #15 tabs 02/14/22 [Rx Confirmed 06/08/22] metoprolol succinate 25 mg tablet,extended release 24 hr 25 mg PO QPM 02/28/22 [History Confirmed 06/08/22] omeprazole 40 mg capsule,delayed release 40 mg PO QAM 02/28/22 [History Confirmed 06/08/22] prednisone 5 mg tablet 5 mg PO QPM 02/28/22 [History Confirmed 06/08/22] mycophenolate mofetil 250 mg capsule (CellCept) 250 mg PO BID #120 caps 03/27/22 [Rx Confirmed 06/08/22] chlorpheniramine maleate 4 mg tablet (Allergy Relief (chlorpheniramine)) 4 mg PO Q12H 30 days #60 tabs 05/23/22 [Rx Confirmed 06/08/22] fluticasone propionate 50 mcg/actuation nasal spray,suspension (Flonase Allergy Relief) 1 spray intranasal BID #18.2 mL 05/23/22 [Rx Confirmed 06/08/22] spironolactone 25 mg tablet 12.5 mg PO QAM 05/23/22 [History Confirmed 06/08/22] oxycodone-acetaminophen 5 mg-325 mg tablet (Percocet) 1 tab PO Q6H PRN pain #20 tabs 06/08/22 [Rx Confirmed 06/08/22] Active Medications Lidocaine (Lidocaine 5% 1 Patch) 1 patch TD QAM [facility] Stop: 07/08/22 16:59 Last Admin: 06/08/22 17:12 Dose: Not Given Miscellaneous (Remove Lidoderm Patch) 1 each N/A DAILY@2100 [facility] Stop: 07/08/22 20:59 Lidocaine ([facility] 5% 1 [facility]) [facility] [place]: 07/08/22 16:59 Last Admin: 06/08/22 17:12 Dose: Not Given Documented By: [id number] Discontinued Medications Acetaminophen (Acetaminophen 325 Mg Tab) 650 mg PO NOW STA Stop: 06/08/22 16:31 Last Admin: 06/08/22 17:03 Dose: 650 mg Documented By: [id number] Albuterol (Albut/Ipratrop 3mg/0.5mg Neb 3 Ml Vial) 3 ml NEB NOW STA; Protocol Stop: 06/08/22 13:25 Last Admin: 06/08/22 13:42 Dose: 3 ml Documented By: Diphtheria/Pertussis/Tetanus Vacc (Diphtheria/Tetanus/Pertussis 0.5 Ml Syr/Vial) 0.5 ml IM .ONCE ONE Stop: 06/08/22 13:25 Last Admin: 06/08/22 14:52 Dose: 0.5 ml Documented By: Ioversol (Optiray 320 100ml) 93 ml IV ONCE ONE Stop: 06/08/22 14:41 Last Admin: 06/08/22 14:40 Dose: 93 ml Documented By: CORNELIA Ketorolac Tromethamine (Ketorolac Tromethamine 15 Mg/Ml Vial) 10 mg IV NOW ONE Stop: 06/08/22 16:31 Last Admin: 06/08/22 17:03 Dose: 10 mg Documented By: [id number] Lidocaine (Lidocaine 5% 1 Patch) 1 patch TD ONE ONE Stop: 06/08/22 17:01 Last Admin: 06/08/22 17:02 Dose: 1 patch Documented By: [id number] Methylprednisolone (Methylprednisolone 125 Mg/2 Ml Vial) 125 mg IV NOW STA Stop: 06/08/22 13:25 Last Admin: 06/08/22 13:42 Dose: 125 mg Documented By: SR Morphine Sulfate (Morphine Sulfate 4 Mg/Ml 1 Ml Carp\\Vial) 4 mg IV NOW STA Stop: 06/08/22 13:25 Last Admin: 06/08/22 13:42 Dose: 4 mg Documented By: SR Morphine Sulfate (Morphine Sulfate 4 Mg/Ml 1 Ml Carp\\Vial) 4 mg IV NOW STA Stop: 06/08/22 16:06 Last Admin: 06/08/22 16:20 Dose: 4 mg Documented By: [id number] Ondansetron HCl (Ondansetron Inj 2 Mg/Ml 2 Ml Vial) 4 mg IV NOW STA Stop: 06/08/22 13:25 Last Admin: 06/08/22 13:41 Dose: 4 mg Documented By: SR Oxycodone/Acetaminophen (Oxycodone/Acetaminophen 5mg/325mg Tab) 1 tab PO NOW STA Stop: 06/08/22 15:34 Last Admin: 06/08/22 16:01 Dose: Not Given Documented By: AM ECG Additional Comments: Sinus bradycardia Right bundle branch block Abnormal ECG When compared with ECG of 11-MAY-2021 10:09, No significant change was found Code Status & VTE Plan Code Status CODE: Conditional - NO INTUBATION/MECHANICAL VENTILATION VTE: SCDS, Heparin 5000 units subq VTE Prophylaxis Plan VTE Prophylaxis will be ordered: Yes Supervising Physician Co-Signing Physician Notes I supervised CARMEL Ramires on this admission. I interviewed and examined the patient independently of him. The plan is as written in his note except for any following changes/exceptions: None 82yo M w/ hx of cardiomyopathy, AIVR, , and ILD who presents with syncope. No recollection of the event. He recalls letting his dog out, then just being on the ground. Now with rib fractures as well. Will admit and monitor on telemetry and control pain. PG Care Time/CCT Total # of Minutes Spent Total Time Spent with Patient: Total time spent is greater than 50% in coordination of care (as documented) at patient's floor/unit and/or counseling patient: Coding Level of Care Code 01143 Initial Inpt Care Lvl 3 Diagnoses Syncope and collapse R55 Closed rib fracture S22.41XA Encounter type: initial encounter Laterality: right Rib fracture type: multiple ribs Interstitial lung disease J84.9 Aortic stenosis I35.0 Cardiac valve disease etiology: etiology unspecified GERD (gastroesophageal reflux disease) K21.9 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
[2022-06-08] MEDS ORDERED: LIDOCAINE 5% 1 PATCH TD ONE (17:00)
[2022-06-08] MEDS: LIDOCAINE 5% 1 PATCH TD SCH (17:12)
--- NOTE | 2022-06-08 17:47 | Electrocardiogram Report ---
Test Reason : Blood Pressure : / mmHG Vent. Rate : 055 BPM Atrial Rate : 055 BPM P-R Int : 162 ms QRS Dur : 158 ms QT Int : 472 ms P-R-T Axes : 019 -07 000 degrees QTc Int : 451 ms Sinus bradycardia Right bundle branch block Abnormal ECG When compared with ECG of 11-MAY-2021 10:09, No significant change was found Confirmed by Jared العراقي ([id number]) on 06/08/2022 5:46:46 PM Referred By: REFERRED SELF Confirmed By:Jared العراقي
[2022-06-08] MEDS ORDERED: GLUCOSE 40% GEL 15 GM TUBE PO PRN (19:00)
[2022-06-08] MEDS ORDERED: CARBOHYDRATES FOR HYPOGLYCEMIA PO PRN (19:00)
[2022-06-08] MEDS ORDERED: GLUCAGON FOR INJ 1 MG VIAL SQ PRN (19:00)
[2022-06-08] MEDS ORDERED: oxyCODONE HCL IR 5 MG TAB (IMMEDIATE RELEASE) PO PRN (19:00)
[2022-06-08] MEDS ORDERED: ACETAMINOPHEN 325 MG TAB PO PRN (19:00)
[2022-06-08] MEDS ORDERED: GLUCOSE 10 TAB/TUBE PO PRN (19:00)
[2022-06-08] MEDS ORDERED: ALBUTEROL 0.083% NEBU SOLN 3 ML VIAL NEB PRN (19:00)
[2022-06-08] MEDS ORDERED: DEXTROSE 50% 50 ML SYRINGE IV PRN (19:00)
[2022-06-08] MEDS ORDERED: TERAZOSIN HCL 5 MG CAP PO SCH (21:00)
[2022-06-08] MEDS: INSULIN ASPART PER UNIT SC SCH (21:58)
[2022-06-08] MEDS: MYCOPHENOLATE MOFETIL 250 MG CAP PO SCH (22:06)
[2022-06-08] MEDS: FAMOTIDINE 40 MG TABLET PO SCH (22:08)
[2022-06-08] MEDS: predniSONE 5 MG TAB PO SCH (22:08)
[2022-06-08] MEDS: METOPROLOL SUCC 25MG EXT REL TAB PO SCH (22:09)
[2022-06-08] MEDS: FLUTICASONE PROPIONATE NA SPR 16 GM BTL NAE SCH (22:10)
[2022-06-08] MEDS: ALPRAZolam 0.25 MG TABLET PO PRN (23:28)
[2022-06-08] MEDS: HYDROmorphone INJ 0.5 MG/0.5 ML SYR IV PRN (23:28)
[2022-06-09 05:40] LABS: Appearance Urine Clear (Clear); Bacteria Urine Automated Negative (Negative); Bilirubin Urine Negative (Negative); Blood Urine Negative (Negative); Color Urine Yellow; Glucose Urine UA Negative (Negative); Ketones Urine Negative (Negative); Leukocyte Esterase Urine 1+ (Negative); Nitrite Urine Negative (Negative); Protein Urine Negative (Negative); RBC Urine Automated 0-4 /hpf (0-4); Specific Gravity Urine 1.034 (1.000-1.030); Urobilinogen Urine Negative (Negative)
[2022-06-09] MEDS: LEVOTHYROXINE SODIUM 50 MCG TABLET PO SCH (06:16)
--- NOTE | 2022-06-09 07:52 | Hospitalist Progress Note ---
Date of Service June 09, 2022 Assessment & Plan (1) Syncope and collapse: Plan: As per HPI syncope preceded by dizziness and flush feeling- on BB, Lasix, Spironolactone, Terazosin, Flomax at home - Patient with history of LVH with preserved EF 55-60% noted on ECHO from 2020- previously 2019 (35%) - Had a Holter monitor in 2019- had re-initiation of BB at that time - hold Lasix and spironolactone - Telemetry continues, EP feels may benefit from multiday event monitor concern would be traumatic syncope from arrythmia - no pain or change to his right shoulder arthroplasty interpreted on CXR - Without cervical pain or thoracic spine pain- cervical spine cleared clinically with ROM, palpation, multiple rib fractures seen and scalp laceration (2) Closed rib fracture: Plan: Posterior and lateral rib fractures without evidence of hemothorax/pneumothorax at this time - underlying ILD - Pain control and deep breathing will be imperative to prevent atelectasis/pneumonia - Lidocaine patch now, Tylenol 650mg PO now, Toradol 10mg IV now x1, Oxy IR 5mg PO prn q6, Hydromorphone 0.5mg IV q6prn severe pain - Splinting of right side - ICS q1 hour, with q2 hour turning coughing and deep breathing (3) Interstitial lung disease: Plan: Follows with Dr. Mares - cause remains uncertain declined open lung biopsy in the past did have bronch - remains on Cellcept- continue - His prednisone has been titrated down and is on 5mg orally daily, watch for need for supplementation - continue PRN nebulizer for the above (4) Aortic stenosis: Plan: Chronic stable - follow volume status as above - hold diuretics (5) GERD (gastroesophageal reflux disease): Plan: Continue PPI and H2 (6) Accelerated idioventricular rhythm: Plan: History of- HR ranging from 55-60 with P waves noted on ECG (7) Benign prostatic hyperplasia: Plan: Continue with Terazosin and consider to hold Flomax with description of orthostasis (8) Cardiomyopathy: Plan: As above - stable at this time, EF has improved by last echo (9) Leukocytosis: Plan: Chronically 11-12 with steroids, increase today is likely reactionary - he did get 125mg of solumederol in the EMD on presentation - follow fever curve overnight expect some further demargination in AM. - no indication at this time for abx Admission and Anticipated Discharge Date Admission Date: June 08, 2022 Subjective pt is tolerant of his rib fractures seen by cardiology and recommends continued monitoring no aberrant arrhythmia seen on tele Review of Systems Review of Systems: Mild distress and fatigue no headache, no visual changes, did have scalp contusion/repaired laceration no speech or swallowing issues mechanical musculoskeletal chest pain, pressure or palpitations baseline shortness of breath non productive cough no abdominal pain, nausea or vomiting, diarrhea or constipation no dysuria, hematuria or frequency no focal joint pain or swelling no back pain, CVA tenderness or radicular pain no bruising, bleeding or rashes no focal signs of weakness or numbness or altered sensation no complaints of anxiety or depression.. Physical Exam Physical Exam: The patient appeared well nourished and normally developed. Vital signs as documented. Head exam is normocephalic atraumatic Neck is without JVD, thyromegaly, or carotid bruits. Lungs some splinting and crackles which i suspect are his baseline Cardiac exam, Rhythm is regular.. No murmurs, rubs or gallops. Abdominal exam reveals normal bowel sounds, soft non tender, no masses Extremities are nonedematous and both pedal pulses are present Neurologic exam is alert and oriented, no focal loss of strength or sensation Skin is with scalp injury Psychologically is without concerns for anxiety or depression.. Results & Data Results & Data ([facility]) Vital Signs (Past 12 Hours) Vital Signs Temp Pulse Pulse Pulse Resp BP BP 06/09/22 07:13 97.5 F L 59 L 14 153/79 H 06/09/22 03:00 97.9 F 61 18 129/63 06/08/22 23:57 97.7 F 77 20 110/53 L 06/08/22 22:16 71 06/08/22 21:41 70 06/08/22 21:46 98.2 F 75 20 142/80 H 06/08/22 20:20 06/08/22 20:20 98.2 F 74 14 121/76 Pulse Ox O2 Del Method O2 Flow Rate 06/09/22 07:13 98 Nasal Cannula 2 06/09/22 03:00 97 Nasal Cannula 2 06/08/22 23:57 95 Nasal Cannula 2 06/08/22 22:16 06/08/22 21:41 06/08/22 21:46 96 Nasal Cannula 2 06/08/22 20:20 Nasal Cannula 2 06/08/22 20:20 96 Nasal Cannula 2 PG Care Time/CCT Total # of Minutes Spent Total Time Spent with Patient: Total time spent is greater than 50% in coordination of care (as documented) at patient's floor/unit and/or counseling patient: Coding Level of Care Code 76239 Subseq Hosp Care Lvl 3 Diagnoses Syncope and collapse R55 Closed rib fracture S22.41XA Encounter type: initial encounter Laterality: right Rib fracture type: multiple ribs Interstitial lung disease J84.9 Aortic stenosis I35.0 Cardiac valve disease etiology: etiology unspecified GERD (gastroesophageal reflux disease) K21.9 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
[2022-06-09] MEDS ORDERED: ACETAMINOPHEN 500 MG TAB PO PRN (07:54)
[2022-06-09] MEDS ORDERED: oxyCODONE HCL IR 5 MG TAB (IMMEDIATE RELEASE) PO PRN (07:54)
[2022-06-09] MEDS: ESCITALOPRAM OXALATE 10 MG TAB PO SCH (08:43)
[2022-06-09] MEDS: DOCUSATE SODIUM/SENNA 50/8.6MG TAB PO SCH (08:43)
[2022-06-09] MEDS: MYCOPHENOLATE MOFETIL 250 MG CAP PO SCH ×2 (08:43→20:54)
[2022-06-09] MEDS: HEPARIN SOD 5,000 UNIT/0.5 ML VIAL SQ SCH ×2 (08:43→20:54)
[2022-06-09] MEDS: FLUTICASONE PROPIONATE NA SPR 16 GM BTL NAE SCH ×2 (08:43→20:53)
[2022-06-09] MEDS: PANTOprazole 40 MG TAB PO SCH (08:43)
[2022-06-09] MEDS: allopurinoL 100 MG TAB PO SCH (08:43)
[2022-06-09] MEDS: POLYETHYLENE (MIRALAX) 17 GM PACK PO SCH (08:44)
[2022-06-09] MEDS: HYDROmorphone INJ 0.5 MG/0.5 ML SYR IV PRN ×2 (08:52→21:18)
[2022-06-09] MEDS: LANTUS PER UNIT CHARGE SQ SCH (08:55)
[2022-06-09] MEDS: INSULIN ASPART PER UNIT SC SCH ×4 (08:55→20:40)
[2022-06-09 10:07] LABS: Basophils # (auto) 0.04 K/uL (0-0.2); Basophils % (auto) 0.2 %; Eosinophils # (auto) 0.01 K/uL (0-0.50); Hematocrit (blood only) 32.8 % (40.1-51.0); Immature Granulocytes # (auto) 0.59 K/uL (0.00-0.02); Immature Granulocytes % (auto) 2.7 %; Lymphocytes # (auto) 0.59 K/uL (1.2-3.4); Lymphocytes % (auto) 2.7 %; Mean Corpuscular Hemoglobin 30.9 pg (25.0-34.0); Mean Corpuscular Hgb Conc 33.5 g/dL (32.0-36.0); Mean Corpuscular Volume 92.1 fL (80.0-100.0); Mean Platelet Volume 10.5 fL (9.4-12.4); Monocytes # (auto) 1.37 K/uL (0.24-0.82); Monocytes % (auto) 6.2 %; Neutrophils # (auto) 19.61 K/uL (1.4-6.5); Neutrophils % (auto) 88.2 %; Platelet Count 264 K/uL (130-400); RDW Coefficient of Variation 13.2 % (11.5-14.5); RDW Standard Deviation 44.9 fL (36.4-46.3); Red Blood Count 3.56 M/uL (4.63-6.08); White Blood Count 22.21 K/ul (4.8-10.8)
[2022-06-09 10:38] LABS: BUN Creatinine Ratio 24.5 (10-20); Calcium 9.2 mg/dl (8.5-10.1); Creatinine Clr Calc Pharmacy 37.6 ml/min; Est GFR (African American) 48.5 ml/min; Est GFR (Non-African American) 41.8 ml/min; Magnesium 1.9 mg/dl (1.7-2.4); Potassium 4.8 mmol/L (3.5-5.1)
[2022-06-09] MEDS: LIDOCAINE 5% 1 PATCH TD SCH (10:41)
--- NOTE | 2022-06-09 14:50 | Cardiology Consultation ---
Date of Consultation June 09, 2022 Assessment & Plan (1) Syncope and collapse: (2) Cardiomyopathy: (3) Frequent PVCs: (4) RBBB: Plan 1. Syncope: The cause of his syncope is not clear. There is a suggestion that it may be orthostatic, or at least orthostasis may have contributed, and that he does have orthostatic symptoms at other times however the symptoms resolve quickly and in this case he had not stood up around the time of this event. It is possible he had an arrhythmia in conjunction with orthostasis, that will be hard to prove. It could have been a primary arrhythmia as well, he could have AV block (he does have right bundle branch block and infra his block can be sudden and very intermittent). A tach arrhythmia is also possible given his history. With this uncertainty I think monitoring is essential, I would plan outpatient monitoring if nothing shows up on telemetry. I would also not run his blood pressure on the low side, but he is not on much for blood pressure although he is on finasteride which can cause orthostasis. 2. Cardiomyopathy: Based on my review of his echocardiogram his cardiomyopathy has not recurred, therefore DONY inhibition or beta-blockade is not needed. 3. Frequent PVCs: Historically he had frequent PVCs, that may have contributed to his cardiomyopathy, those are not present now despite very low doses of beta- blockade. I would continue to monitor. 4. Right bundle branch block: He does have right bundle branch block suggesting some degree of infra his disease. It is possible he has occasional episodes of complete heart block. We do need to monitor for this. Dr. Wesley is covering for cardiology this weekend, I will ask him to stop by and review the situation. History of Present Illness Reason for Consultation: Syncope Attending Physician: Chon Keith MD History of Present Illness This is an 82-year-old male who has a history of hypertension, dyslipidemia as well as interstitial lung disease and a history of cardiomyopathy with premature ventricular beats and a IVR. I believe his cardiac history began in July [id number] when he had an echocardiogram performed and was noted to have left ventricular dysfunction with an ejection fraction of 35%. With frequent premature ventricular beats he had a Holter monitor performed August 07, 2019 where he was observed to have 14% of his beats premature beats and frequent runs of AI VR up to 47 beats in duration. He declined catheterization and was treated medically. Subsequently his left ventricular function normalized and on echocardiography May 11, 2021 he had normal left ventricular size and function with ejection fraction of 55 to 60%. When last evaluated in March 2022 he was feeling well and low-dose beta-blockade was continued (at that time he was on metoprolol succinate 25 mg daily, I believe prior to that he was on 50 mg daily but it was reduced). He evidently did not tolerate DONY inhibition. He presents now with what appears to be a syncopal event and a fall. He opened his door to let his dog out of the house and then woke up on the floor having injured his head as well as having rib fractures. He was able to crawl to a phone, call his daughter who contacted EMS and the patient was brought into the emergency room. In the emergency room evaluation was unremarkable including standard laboratory studies although I do not believe a troponin was done. A presenting electrocardiogram showed sinus rhythm at 55 bpm with a right bundle branch block pattern. The IL interval was normal. An echocardiogram was done which based on my review showed left ventricular hypertrophy and possible asymmetric septal hypertrophy but preserved left ventricular function. At the time my evaluation he was feeling well and confirmed the event as noted above. He does tell me that he sometimes feels a little lightheaded when he stands up, occasionally needing to hold onto something, however on this occasion he had been up for some time doing his morning routine and had not gotten up from a sitting position before this event. His daughter tells me that EMS confirmed a 45 mmHg blood pressure drop, evidently they checked supine and standing blood pressures when they arrived. Allergies Allergy/AdvReac Type Severity Reaction Status Date / Time Sulfa (Sulfonamide Allergy Severe RASH, Verified 06/08/22 16:40 Antibiotics) HIVES, SWOLLEN MOUTH, THROAT SWELLING lisinopril Allergy Intermediate lethargic Verified 06/08/22 16:40 Penicillins Allergy Intermediate RASH, HIVES Verified 06/08/22 16:40 Home Medications Medication Instructions Recorded Confirmed Type finasteride 5 mg tablet (Proscar) 5 mg PO HS 07/10/19 06/08/22 History allopurinol 100 mg tablet 100 mg PO QAM 07/30/19 06/08/22 History terazosin 5 mg capsule 5 mg PO HS 01/15/20 06/08/22 History escitalopram oxalate 10 mg tablet 10 mg PO QAM 11/02/20 06/08/22 History (Lexapro) famotidine 40 mg tablet (Pepcid) 40 mg PO HS 11/02/20 06/08/22 History insulin degludec 100 unit/mL (3 10 unit subcut QAM 01/31/21 06/08/22 History mL) subcutaneous pen (Tresiba FlexTouch U-100 insulin) insulin lispro 100 unit/mL 6 unit subcut QPM 01/31/21 06/08/22 History subcutaneous solution (Humalog U-100 Insulin) levothyroxine 50 mcg capsule 50 mcg PO QAM 01/31/21 06/08/22 History furosemide 20 mg tablet (Lasix) 20 mg PO QAM 07/12/21 06/08/22 History alprazolam 0.5 mg tablet (Xanax) 0.25 mg PO PM #15 tabs 02/14/22 06/08/22 Rx metoprolol succinate 25 mg 25 mg PO QPM 02/28/22 06/08/22 History tablet,extended release 24 hr omeprazole 40 mg capsule,delayed 40 mg PO QAM 02/28/22 06/08/22 History release prednisone 5 mg tablet 5 mg PO QPM 02/28/22 06/08/22 History mycophenolate mofetil 250 mg 250 mg PO BID #120 caps 03/27/22 06/08/22 Rx capsule (CellCept) chlorpheniramine maleate 4 mg 4 mg PO Q12H 30 days #60 tabs 05/23/22 06/08/22 Rx tablet (Allergy Relief (chlorpheniramine)) fluticasone propionate 50 1 spray intranasal BID #18.2 mL 05/23/22 06/08/22 Rx mcg/actuation nasal spray,suspension (Flonase Allergy Relief) spironolactone 25 mg tablet 12.5 mg PO QAM 05/23/22 06/08/22 History oxycodone-acetaminophen 5 mg-325 1 tab PO Q6H PRN pain #20 tabs 06/08/22 06/08/22 Rx mg tablet (Percocet) Patient History Medical History Accelerated idioventricular rhythm Asymptomatic. Beta-juanjose has been initiated since Holter monitor per cardio records Anxiety Aortic stenosis Mild AV stenosis on 10/15/20 ECHO "AV opens well" on 05/11/21 ECHO -Per 08/2021 cardio note- noted in 2019 - no significant stenosis on most recent ECHO- known sclerotic AV- "no significant stenosis" Benign prostatic hyperplasia Cardiomyopathy LV systolic function has normalized. Etiology of CM unknown. DMII (diabetes mellitus, type 2) Frequent PVCs FOLLOWED BY DR. 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 [facility] [place] [facility] [place] of bilateral knee replacement History of cardiac cath no stents>YEARS AGO AT [facility] History of colonoscopy History of esophagogastroduodenoscopy (EGD) with dilation History of tonsillectomy and adenoidectomy History of wisdom tooth extraction S/P dilatation of esophageal stricture Family History Father Family history of diabetes mellitus Coronary heart disease Prostate cancer Myocardial infarction Uncle Coronary heart disease Sister Breast cancer Other No family history of adverse response to anesthesia Denies family history of Ovarian cancer Colorectal cancer Social History Smoking Status: Never smoker Second Hand Exposure: No; Hx Alcohol Use: No Hx Substance Use: No Preferred Language: Russian Communication Ability: Effective Visual Impairment: No Limitations Hearing Ability: Normal Human Resources Associate Required: No Beliefs That Will Affect Care: None marital status: / Current Living Situation: Alone current occupational status: retired How many Children do You have: 1 Feels Safe at Home: Yes Assistive Devices: None Review of Systems Review of Systems: All systems reviewed & are unremarkable except as noted in HPI & below Physical Exam Physical Exam: Constitutional: Alert, cooperative and in no distress. HEENT: Unremarkable Neck: No jugular venous distention, carotid pulses are normal and equal bilaterally without bruits. Pulmonary: Clear to auscultation bilaterally. Cardiac: Regular rhythm with no murmur, gallop or rub. Abdomen: Soft, nontender with normal bowel sounds. Extremities: No edema. Distal pulses intact. Neurologic: No focal findings. Skin: No rash, ecchymoses or petechiae. Results & Data ([facility]) Vital Signs (Past 12 Hours) Vital Signs Temp Pulse Pulse Pulse Resp BP BP 06/09/22 11:05 36.5 C 61 18 100/61 06/09/22 07:15 53 L 06/09/22 07:13 36.4 C L 59 L 14 153/79 H 06/09/22 03:00 36.6 C 61 18 129/63 Pulse Ox O2 Del Method O2 Flow Rate 06/09/22 11:05 92 Room Air 06/09/22 07:15 06/09/22 07:13 98 Nasal Cannula 2 06/09/22 03:00 97 Nasal Cannula 2 Laboratory Results CBC 06/09/22 Range/Units 09:44 WBC 22.21 H (4.8-10.8) K/ul RBC 3.56 L (4.63-6.08) M/uL Hgb 11.0 L (14.0-18.0) g/dl Hct 32.8 L (40.1-51.0) % Plt Count 264 (130-400) K/uL Neut # (Auto) 19.61 H (1.4-6.5) K/uL Lymph # (Auto) 0.59 L (1.2-3.4) K/uL [place] # (Auto) 1.37 H (0.24-0.82) K/uL Eos # (Auto) 0.01 (0-0.50) K/uL Baso # (Auto) 0.04 (0-0.2) K/uL Comprehensive Metabolic Panel 06/09/22 Range/Units 09:44 Sodium 130 L (136-145) mmol/L Potassium 4.8 (3.5-5.1) mmol/L Chloride 99 (98-107) mmol/L Carbon Dioxide 23 (21-32) mmol/L BUN 37 H (6-23) mg/dl Creatinine 1.51 H (0.6-1.4) mg/dl Glucose 173 H (70-99(Fasting)) mg/dl Calcium 9.2 (8.5-10.1) mg/dl Intake and Output 06/09/22 06/09/22 06/09/22 06:59 14:59 22:59 Intake Total 40 / 540 600 / 600 Output Total 350 / 350 300 / 300 Balance -310 / 190 300 / 300 Intake: Oral 40 / 40 600 / 600 Output: Urine 350 / 350 300 / 300 Other: Weight 87.2 kg Weight Measurement Method Built in [facility] Diagnostic Findings Telemetry: Sinus rhythm, rate varying 50 to 60 bpm predominantly. No significant arrhythmia. He does not have frequent PVCs. PG Care Time/CCT Total # of Minutes Spent Total Time Spent with Patient: Total time spent is greater than 50% in coordination of care (as documented) at patient's floor/unit and/or counseling patient: Coding Level of Care Code 30591 Initial Inpt Care Lvl 3 Diagnoses Syncope and collapse R55 Cardiomyopathy I42.9 Cardiomyopathy type: unspecified Frequent PVCs I49.3 RBBB I45.10 (1) Cardiomyopathy Cardiomyopathy type: unspecified Qualified Code(s): I42.9 - Cardiomyopathy, unspecified
--- NOTE | 2022-06-09 17:20 | XCELERA ---
[id number]
[2022-06-09] MEDS: FAMOTIDINE 40 MG TABLET PO SCH (20:54)
[2022-06-09] MEDS: METOPROLOL SUCC 25MG EXT REL TAB PO SCH (20:54)
[2022-06-09] MEDS: predniSONE 5 MG TAB PO SCH (20:55)
[2022-06-09] MEDS: ALPRAZolam 0.25 MG TABLET PO PRN (21:18)
[2022-06-10] MEDS: HYDROmorphone INJ 0.5 MG/0.5 ML SYR IV PRN (05:01)
[2022-06-10] MEDS: LEVOTHYROXINE SODIUM 50 MCG TABLET PO SCH (06:44)
[2022-06-10 07:40] LABS: Basophils # (auto) 0.02 K/uL (0-0.2); Basophils % (auto) 0.1 %; Eosinophils # (auto) 0.02 K/uL (0-0.50); Eosinophils % (auto) 0.1 %; Hematocrit (blood only) 33.9 % (40.1-51.0); Hemoglobin 11.4 g/dl (14.0-18.0); Immature Granulocytes # (auto) 0.08 K/uL (0.00-0.02); Immature Granulocytes % (auto) 0.5 %; Lymphocytes # (auto) 1.23 K/uL (1.2-3.4); Lymphocytes % (auto) 7.6 %; Mean Corpuscular Hemoglobin 31.1 pg (25.0-34.0); Mean Corpuscular Hgb Conc 33.6 g/dL (32.0-36.0); Mean Corpuscular Volume 92.4 fL (80.0-100.0); Mean Platelet Volume 10.5 fL (9.4-12.4); Monocytes % (auto) 6.8 %; Neutrophils # (auto) 13.69 K/uL (1.4-6.5); Neutrophils % (auto) 84.9 %; Platelet Count 256 K/uL (130-400); RDW Coefficient of Variation 13.2 % (11.5-14.5); RDW Standard Deviation 44.8 fL (36.4-46.3); Red Blood Count 3.67 M/uL (4.63-6.08); White Blood Count 16.14 K/ul (4.8-10.8)
[2022-06-10] MEDS: INSULIN ASPART PER UNIT SC SCH ×2 (07:53→12:53)
[2022-06-10] MEDS: POLYETHYLENE (MIRALAX) 17 GM PACK PO SCH (07:57)
[2022-06-10] MEDS: LANTUS PER UNIT CHARGE SQ SCH (08:01)
[2022-06-10 08:02] LABS: BUN Creatinine Ratio 27.3 (10-20); Calcium 9.2 mg/dl (8.5-10.1); Creatinine Clr Calc Pharmacy 39.7 ml/min; Est GFR (African American) 51.8 ml/min; Est GFR (Non-African American) 44.7 ml/min; Magnesium 2.1 mg/dl (1.7-2.4); Potassium 4.7 mmol/L (3.5-5.1)
[2022-06-10] MEDS: PANTOprazole 40 MG TAB PO SCH (08:04)
[2022-06-10] MEDS: ESCITALOPRAM OXALATE 10 MG TAB PO SCH (08:05)
[2022-06-10] MEDS: allopurinoL 100 MG TAB PO SCH (08:05)
[2022-06-10] MEDS: MYCOPHENOLATE MOFETIL 250 MG CAP PO SCH (08:05)
[2022-06-10] MEDS: HEPARIN SOD 5,000 UNIT/0.5 ML VIAL SQ SCH (08:07)
[2022-06-10] MEDS: LIDOCAINE 5% 1 PATCH TD SCH (08:07)
[2022-06-10] MEDS: FLUTICASONE PROPIONATE NA SPR 16 GM BTL NAE SCH (08:07)
--- NOTE | 2022-06-10 08:15 | Hospitalist Progress Note ---
Date of Service June 10, 2022 Assessment & Plan (1) Syncope and collapse: Plan: As per HPI syncope preceded by dizziness and flush feeling- on BB, Lasix, Spironolactone, Terazosin, Flomax at home - Patient with history of LVH with preserved EF 55-60% noted on ECHO from 2020- previously 2019 (35%), current echo. preserved EF some pulm htn as expected - Had a Holter monitor in 2019- had re-initiation of BB at that time - hold Lasix and spironolactone - Telemetry continues, EP feels may benefit from multiday event monitor concern would be traumatic syncope from arrythmia - no pain or change to his right shoulder arthroplasty interpreted on CXR - Without cervical pain or thoracic spine pain- cervical spine cleared clinically with ROM, palpation, multiple rib fractures seen and scalp laceration (2) Closed rib fracture: Plan: Posterior and lateral rib fractures without evidence of hemothorax/pneumothorax at this time - underlying ILD - Pain control and deep breathing will be imperative to prevent atelectasis/pneumonia - Lidocaine patch now, Tylenol 650mg PO now, Toradol 10mg IV now x1, Oxy IR 5mg PO prn q6, Hydromorphone 0.5mg IV q6prn severe pain - Splinting of right side - ICS q1 hour, with q2 hour turning coughing and deep breathing (3) Interstitial lung disease: Plan: Follows with Dr. Mares - cause remains uncertain declined open lung biopsy in the past did have bronch - remains on Cellcept- continue - His prednisone has been titrated down and is on 5mg orally daily, watch for need for supplementation - continue PRN nebulizer for the above (4) Aortic stenosis: Plan: Chronic stable - follow volume status as above - hold diuretics (5) GERD (gastroesophageal reflux disease): Plan: Continue PPI and H2 (6) Accelerated idioventricular rhythm: Plan: History of- HR ranging from 55-60 with P waves noted on ECG (7) Benign prostatic hyperplasia: Plan: Continue with Terazosin and consider to hold Flomax with description of orthostasis (8) Cardiomyopathy: Plan: As above - stable at this time, EF has improved by last echo (9) Leukocytosis: Plan: Chronically 11-12 with steroids, increase today is likely reactionary - he did get 125mg of solumederol in the EMD on presentation - follow fever curve overnight expect some further demargination in AM. - no indication at this time for abx Admission and Anticipated Discharge Date Admission Date: June 08, 2022 Results & Data Results & Data ([facility]) Vital Signs (Past 12 Hours) Vital Signs Temp Pulse Pulse Resp BP BP Pulse Ox 06/10/22 07:44 98.1 F 55 L 18 147/72 H 94 06/10/22 00:15 57 L 06/10/22 04:00 97.7 F 48 L 18 153/72 H 94 06/09/22 23:27 98.1 F 57 L 20 129/77 94 06/09/22 22:51 O2 Del Method 06/10/22 07:44 Room Air 06/10/22 00:15 06/10/22 04:00 Room Air 06/09/22 23:27 Room Air 06/09/22 22:51 Room Air PG Care Time/CCT Total # of Minutes Spent Total Time Spent with Patient: Total time spent is greater than 50% in coordination of care (as documented) at patient's floor/unit and/or counseling patient: Coding Diagnoses Syncope and collapse R55 Closed rib fracture S22.41XA Encounter type: initial encounter Laterality: right Rib fracture type: multiple ribs Interstitial lung disease J84.9 Aortic stenosis I35.0 Cardiac valve disease etiology: etiology unspecified GERD (gastroesophageal reflux disease) K21.9 Accelerated idioventricular rhythm I44.2 Benign prostatic hyperplasia N40.0 Cardiomyopathy I42.9 Cardiomyopathy type: unspecified Leukocytosis D72.829 (1) Closed rib fracture Encounter type: initial encounter Laterality: right Rib fracture type: multiple ribs Qualified Code(s): S22.41XA - Multiple fractures of ribs, right side, initial encounter for closed fracture (2) Aortic stenosis Cardiac valve disease etiology: etiology unspecified Qualified Code(s): I35.0 - Nonrheumatic aortic (valve) stenosis (3) Cardiomyopathy Cardiomyopathy type: unspecified Qualified Code(s): I42.9 - Cardiomyopathy, unspecified
[2022-06-10] MEDS: DOCUSATE SODIUM/SENNA 50/8.6MG TAB PO SCH (09:29)
--- NOTE | 2022-06-10 12:43 | Cardiology Progress Note ---
Date of Service June 10, 2022 Assessment & Plan (1) Syncope and collapse: (2) Cardiomyopathy: (3) Frequent PVCs: Plan ASSESSMENT/PLAN: 1. Syncope: Presentation suggestive of orthostatic hypotension. Discontinue Lasix. He has been on Lasix for venous insufficiency and therefore should do well without it. If he has significant edema, can take Lasix 20 mg once daily on an as-needed basis, but can discontinue daily use on a scheduled basis. Compression stockings recommended. Adequate hydration. Change positions slowly. Thirty day event monitor will be arranged to further evaluate for arrhythmia. No evidence of significant arrhythmia while hospitalized. 2. Cardiomyopathy: LV systolic function has normalized. Etiology was uncertain. He had declined cardiac catheterization in the past. Continue metoprolol succinate. Appears euvolemic. No history of CHF. 3. PVCs: History of frequent PVCs. They have appeared to be asymptomatic. On beta-juanjose. 4. Disposition: Can be discharged home from a cardiology perspective. Patient care communicated with Dr. Keith of the primary hospitalist service. Admission and Anticipated Discharge Date Admission Date: June 08, 2022 Subjective Patient was seen earlier this afternoon. He has lightheadedness when he gets up quickly from a seated position, but denies symptoms during this hospital stay. He has dyspnea with exertion with more strenuous activities but believes it to be chronic and stable with even mild improvement recently. He reports orthostatic vitals with a systolic blood pressure that dropped approximately 40mmHg when changing positions by EMS prior to his presentation. He has not had any further syncope. He denies orthopnea, edema, palpitations. His son was present at the bedside. Review of systems: As above. Physical Exam Physical Exam: Gen.: No acute distress. Alert and oriented. HEENT: Anicteric sclera. Neck: No JVD. Cardiac: PMI was nondisplaced. No ventricular heave. Regular. Normal S1-S2. 2/6 early peaking systolic ejection murmur. No rubs or gallops. Pulmonary: Bibasilar crackles (chronic). Abdomen: Soft, nontender, nondistended, with normoactive bowel sounds. No bruits noted. Extremities: 2+ radial pulses bilaterally. 2+ posterior tibialis pulses bilaterally. No edema. No cyanosis. Results & Data ([facility]) Vital Signs (Past 12 Hours) Vital Signs Temp Pulse Pulse Resp BP BP Pulse Ox 06/10/22 11:51 37.4 C 88 18 165/90 H 91 06/10/22 07:51 53 L 06/10/22 07:44 36.7 C 55 L 18 147/72 H 94 06/10/22 04:00 36.5 C 48 L 18 153/72 H 94 O2 Del Method 06/10/22 11:51 Room Air 06/10/22 07:51 06/10/22 07:44 Room Air 06/10/22 04:00 Room Air Laboratory Results Laboratory Results - last 24 hr 06/09/22 06/09/22 06/10/22 16:24 20:08 07:15 WBC 16.14 H RBC 3.67 L Hgb 11.4 L Hct 33.9 L MCV 92.4 MCH 31.1 MCHC 33.6 RDW Std Deviation 44.8 RDW Coeff of Graham 13.2 Plt Count 256 MPV 10.5 Immature Gran % (Auto) 0.5 Neut % (Auto) 84.9 Lymph % (Auto) 7.6 [place] % (Auto) 6.8 Eos % (Auto) 0.1 Baso % (Auto) 0.1 Neut # (Auto) 13.69 H Lymph # (Auto) 1.23 [place] # (Auto) 1.10 H Eos # (Auto) 0.02 Baso # (Auto) 0.02 Immature Gran # (Auto) 0.08 H Sodium Potassium Chloride Carbon Dioxide Anion Gap BUN Creatinine Est Cr Clr Drug Dosing Est GFR ( Amer) Est GFR (Non-Af Amer) BUN/Creatinine Ratio Glucose POC Glucose 152 H 101 H Calcium Magnesium 06/10/22 06/10/22 06/10/22 07:15 07:25 11:30 WBC RBC Hgb Hct MCV MCH MCHC RDW Std Deviation RDW Coeff of Graham Plt Count MPV Immature Gran % (Auto) Neut % (Auto) Lymph % (Auto) [place] % (Auto) Eos % (Auto) Baso % (Auto) Neut # (Auto) Lymph # (Auto) [place] # (Auto) Eos # (Auto) Baso # (Auto) Immature Gran # (Auto) Sodium 134 L Potassium 4.7 Chloride 103 Carbon Dioxide 27 Anion Gap 4 BUN 39 H Creatinine 1.43 H Est Cr Clr Drug Dosing 39.7 Est GFR ( Amer) 51.8 Est GFR (Non-Af Amer) 44.7 BUN/Creatinine Ratio 27.3 H Glucose 117 H POC Glucose 121 H 105 H Calcium 9.2 Magnesium 2.1 Diagnostic Findings Telemetry personally reviewed: Sinus rhythm with heart rates 50s to 60s. PVCs. Echo 06/09/2022: Normal LV size. EF 65-70%. septal motion consistent with bundle-branch block. Sclerotic aortic valve without stenosis. Mild to moderate MR. Mild pulmonary hypertension. Medications Administered Current Inpatient Medications Acetaminophen (Acetaminophen 500 Mg Tab) 1,000 mg PO Q6H PRN PRN Reason: Mild Pain or Fever Stop: 07/09/22 07:53 Last Admin: 06/09/22 08:51 Dose: 1,000 mg Albuterol (Albuterol 0.083% Nebu Soln 3 Ml Vial) 2.5 mg NEB Q6R PRN; Protocol PRN Reason: dyspnea/wheezing Stop: 07/08/22 18:59 Allopurinol (Allopurinol 100 Mg Tab) 100 mg PO QAM JUAN A Stop: 07/09/22 08:59 Last Admin: 06/10/22 08:05 Dose: 100 mg Alprazolam (Alprazolam 0.25 Mg Tablet) 0.25 mg PO PM PRN PRN Reason: insomnia Stop: 07/09/22 20:59 Last Admin: 06/09/22 21:18 Dose: 0.25 mg Dextrose (Dextrose 50% 50 Ml Syringe) 25 - 50 ml IV UD PRN; Protocol PRN Reason: Hypoglycemia Protocol Stop: 07/08/22 18:59 Escitalopram Oxalate (Escitalopram Oxalate 10 Mg Tab) 10 mg PO QAM JUAN A Stop: 07/09/22 08:59 Last Admin: 06/10/22 08:05 Dose: 10 mg Famotidine (Famotidine 40 Mg Tablet) 40 mg PO HS JUAN A Stop: 07/08/22 20:59 Last Admin: 06/09/22 20:54 Dose: 40 mg Fluticasone Propionate (Fluticasone Propionate Na Spr 16 Gm Btl) 1 sprays BELEM BID JUAN A Stop: 07/08/22 20:59 Last Admin: 06/10/22 08:07 Dose: 1 sprays Glucagon (Glucagon For Inj 1 Mg Vial) 1 mg SQ UD PRN; Protocol PRN Reason: Hypoglycemia Protocol Stop: 07/08/22 18:59 Glucose (Glucose 40% Gel 15 Gm Tube) 15 - 30 gm PO UD PRN; Protocol PRN Reason: Hypoglycemia Protocol Stop: 07/08/22 18:59 Glucose (Glucose 10 Tab/Tube) 4 - 8 tab PO UD PRN; Protocol PRN Reason: Hypoglycemia Treatment Stop: 07/08/22 18:59 Heparin Sodium (Porcine) (Heparin Sod 5,000 Unit/0.5 Ml Vial) 5,000 units SQ Q12 JUAN A Stop: 07/09/22 08:59 Last Admin: 06/10/22 08:07 Dose: Not Given Hydromorphone HCl (Hydromorphone Inj 0.5 Mg/0.5 Ml Syr) 0.5 mg IV Q6H PRN PRN Reason: Severe Pain Stop: 06/22/22 18:59 Last Admin: 06/10/22 05:01 Dose: 0.5 mg Insulin Aspart (Insulin Aspart Per Unit) 0 units SC ACHS JUAN A Stop: 07/08/22 20:59 Last Admin: 06/10/22 07:53 Dose: 2 units Insulin Glargine (Lantus Per Unit Charge) 10 units SQ QAM JUAN A Stop: 07/09/22 08:59 Last Admin: 06/10/22 08:01 Dose: 10 units Levothyroxine Sodium (Levothyroxine Sodium 50 Mcg Tablet) 50 mcg PO DAILYBB JUAN A Stop: 07/09/22 06:29 Last Admin: 06/10/22 06:44 Dose: 50 mcg Lidocaine (Lidocaine 5% 1 Patch) 1 patch TD QAM JUAN A Stop: 07/08/22 16:59 Last Admin: 06/10/22 08:07 Dose: 1 patch Metoprolol Succinate (Metoprolol Succ 25mg Ext Rel Tab) 25 mg PO QPM JUAN A Stop: 07/08/22 20:59 Last Admin: 06/09/22 20:54 Dose: 25 mg Miscellaneous (Remove Lidoderm Patch) 1 each N/A DAILY@2100 [facility] Stop: 07/08/22 20:59 Last Admin: 06/09/22 20:56 Dose: 1 each Miscellaneous (Carbohydrates For Hypoglycemia ) 15 - 30 gm PO UD PRN PRN Reason: Hypoglycemia Protocol Stop: 07/08/22 18:59 Miscellaneous (Chlorpheniramine-Order Awaiting Action) 1 each N/A QS JUAN A Stop: 07/09/22 00:00 Last Admin: 06/10/22 07:53 Dose: Not Given Mycophenolate Mofetil (Mycophenolate Mofetil 250 Mg Cap) 250 mg PO BID JUAN A Stop: 07/08/22 20:59 Last Admin: 06/10/22 08:05 Dose: 250 mg Oxycodone HCl (Oxycodone Hcl Ir 5 Mg Tab (Immediate Release)) 10 mg PO Q6H PRN PRN Reason: Moderate/severe Pain Stop: 06/23/22 07:53 Pantoprazole Sodium (Pantoprazole 40 Mg Tab) 40 mg PO QAM JUAN A Stop: 07/09/22 08:59 Last Admin: 06/10/22 08:04 Dose: 40 mg Polyethylene Glycol (Polyethylene (Miralax) 17 Gm Pack) 17 gm PO DAILY JUAN A Stop: 07/09/22 08:59 Last Admin: 06/10/22 07:57 Dose: Not Given Prednisone (Prednisone 5 Mg Tab) 5 mg PO QPM JUAN A Stop: 07/08/22 20:59 Last Admin: 06/09/22 20:55 Dose: 5 mg Senna/Docusate Sodium (Docusate Sodium/Senna 50/8.6mg Tab) 1 tab PO QAM JUAN A Stop: 07/09/22 08:59 Last Admin: 06/10/22 09:29 Dose: 1 tab Terazosin HCl (Terazosin Hcl 5 Mg Cap) 5 mg PO HS JUAN A Stop: 07/08/22 20:59 Last Admin: 06/08/22 22:08 Dose: 5 mg PG Care Time/CCT Total # of Minutes Spent Total Time Spent with Patient: Total time spent is greater than 50% in coordination of care (as documented) at patient's floor/unit and/or counseling patient: Coding Level of Care Code 27392 Subseq Hosp Care Lvl 3 Diagnoses Syncope and collapse R55 Cardiomyopathy I42.9 Cardiomyopathy type: unspecified Frequent PVCs I49.3 (1) Cardiomyopathy Cardiomyopathy type: unspecified Qualified Code(s): I42.9 - Cardiomyopathy, unspecified
--- NOTE | 2022-06-10 13:02 | Discharge Summary ---
Date of Service June 10, 2022 Admission HPI Per Admitting Provider 82 YOM with medical history of: ILD( on CellCept/prednisone), DMII, acquired hypothyroidism, HTN, anemia, chronic cough, GERD, BPH, GOUT, Aortic stenosis, susi cardia. Patient comes to the [facility] today following syncopal episode at home. Patient reports that he remembers going to the door to let the dog out this morning and then woke up on the floor- he woke up and crawled to the phone to call for help. He is unsure how long he was on the floor for or remembering how he got there. He does endorse that he remembers feeling dizzy and warm flushing while putting the dog out. Patient endorses that he frequently gets light headed and dizzy with these feelings when sitting and then standing especially if he has been sitting for a decent amount of time. He reports that this has been ongoing for a few months. The patient did have a scalp laceration on presentation to the [facility] and that was repaired by EMD. He remembers his right side of chest hurting after he fell. In the EMD the patient had routine labs pe rformed to include HScTNI, CXR, ECG, CT of head and chest and abdomen/pelvis. CXR and CT of chest revealed right posterior 8/9 ribs and right 5-7 ribs. He was given oral and IV pain medication as well as a splinting device for his ribs and ICS. Hospitalist service was consulted for admission. Patient remains with pain to his right side. He is neurologically intact and endorses no new pain or weakness that is new. He has no cervical or thoracic spine pain. Patient will be admitted to PCU for following of telemetry aggressive pain control and cough deep breathing and ICS. COVID test on admission is: NEGATIVE Principal Diagnosis orthosatic hypotension scalp laceration with repair 06/08/22 fracture of right ribs Discharge Exam The patient appeared stable Vital signs as documented. Lungs appear unlabored Cardiac exam, Rhythm is regular.. No murmurs, rubs or gallops. Abdominal exam reveals normal bowel sounds, soft non tender, no masses Extremities are nonedematous and both pedal pulses are normal. Neurologic exam is alert and oriented, no focal loss of strength or sensation Discharge Data Allergies Allergy/AdvReac Type Severity Reaction Status Date / Time Sulfa (Sulfonamide Allergy Severe RASH, Verified 06/08/22 16:40 Antibiotics) HIVES, SWOLLEN MOUTH, THROAT SWELLING lisinopril Allergy Intermediate lethargic Verified 06/08/22 16:40 Penicillins Allergy Intermediate RASH, HIVES Verified 06/08/22 16:40 Consultations 06/08/22 15:56 ED Decision to Admit Stat 06/09/22 12:24 Consult Cardiology Routine Ordered Studies 06/08/22 12:29 CT head/brain wo con Stat 06/08/22 13:33 CT Abd and Pelvis [CT abd pelvis IV con only] Stat CT chest diagnostic w con Stat Hospital Course (1) Syncope and collapse: As per HPI syncope preceded by dizziness and flush feeling- on BB, Lasix, Spironolactone, Terazosin, Flomax at home - Patient with history of LVH with preserved EF 55-60% noted on ECHO from 2020- previously 2019 (35%), current echo. preserved EF some pulm htn as expected - Had a Holter monitor in 2019- had re-initiation of BB at that time - hold Lasix and spironolactone at time of discharge per cardiology, repeat echo has preserved cardiac EF - cardiology to set up an outpt multiday event monitor - no pain or change to his right shoulder arthroplasty interpreted on CXR - Without cervical pain or thoracic spine pain- cervical spine cleared clinical ly with ROM, palpation, multiple rib fractures seen and scalp laceration (2) Closed rib fracture: Posterior and lateral rib fractures without evidence of hemothorax/pneumothorax at this time - underlying ILD - Pain control and deep breathing will be imperative to prevent atelectasis/pneumonia - Lidocaine patch now, percocet and incentive spirometry (3) Interstitial lung disease: Follows with Dr. Mares - cause remains uncertain declined open lung biopsy in the past did have bronch - remains on Cellcept- continue - His prednisone has been titrated down and is on 5mg orally daily, watch for need for supplementation (4) Aortic stenosis: Echo states sclerosis and NOT stenosis - follow volume status as above - hold diuretics (5) GERD (gastroesophageal reflux disease): Continue PPI and H2 (6) Accelerated idioventricular rhythm: History of- HR ranging from 55-60 with P waves noted on ECG (7) Benign prostatic hyperplasia: Continue with Terazosin and consider to hold Flomax with description of orthostasis (8) Cardiomyopathy: As above - stable at this time, EF has improved by last echo (9) Leukocytosis: Chronically 11-12 with steroids, increase today is likely reactionary - he did get 125mg of solumederol in the EMD on presentation - follow fever curve overnight expect some further demargination in AM. 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 Follow up with Dr South He will arrange for an outpt event monitor for you to wear. 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 Alyssa should be removed no sooner than June 14. If your family doctor cannot remove your alyssa please call the ER to schedule a time or you may be able to come in and have your alyssa removed sometime after June 14. Until you have your alyssa removed you may wash your hair. Be careful not to catch the alyssa and a comb or brush. The day before your alyssa are to be removed it is okay to apply some antibiotic ointment to loosen up any scabs that may be present to allow easier access to the alyssa. Pending Studies at Discharge: No Stand-Alone Forms: [facility], Smoking Cessation Medications and DC Order Prescriptions: New oxycodone-acetaminophen [Percocet] 5-325 mg tablet 1 tab PO Q6H PRN (Reason: pain) Qty: 20 0RF lidocaine 5 % Adhesive Patch,Medicated 1 patch transdermal QAM Qty: 10 0RF Continued finasteride [Proscar] 5 mg tablet 5 mg PO HS mycophenolate mofetil [CellCept] 250 mg capsule 250 mg PO BID Qty: 120 2RF chlorpheniramine maleate [Allergy Relief(chlorpheniramn)] 4 mg tablet 4 mg PO Q12H 30 Days Qty: 60 3RF fluticasone propionate [Flonase Allergy Relief] 50 mcg/actuation spray,suspension 1 spray intranasal BID Qty: 18.2 2RF Rx Instructions: administer into each nostril alprazolam [Xanax] 0.5 mg tablet 0.25 mg PO PM Qty: 15 1RF terazosin 5 mg capsule 5 mg PO HS Tresiba FlexTouch U-100 100 unit/mL (3 mL) insulin pen 10 unit subcut QAM escitalopram oxalate [Lexapro] 10 mg tablet 10 mg PO QAM famotidine [Pepcid] 40 mg tablet 40 mg PO HS insulin lispro [Humalog U-100 Insulin] 100 unit/mL solution 6 unit subcut QPM Label Comments: TAKES BEFORE EVENING MEAL levothyroxine 50 mcg capsule 50 mcg PO QAM allopurinol 100 mg tablet 100 mg PO QAM omeprazole 40 mg Capsule,Delayed Release(Dr/Ec) 40 mg PO QAM metoprolol succinate 25 mg Tablet Extended Release 24 Hr 25 mg PO QPM prednisone 5 mg tablet 5 mg PO QPM Discontinued furosemide [Lasix] 20 mg tablet 20 mg PO QAM spironolactone 25 mg tablet 12.5 mg PO QAM Discharge Orders: Discharge Order (Routine); Ordered 06/10/22 Ordered By: Chon Keith Admission Data Admit Date/Time: 06/08/22 16:44 Attending Provider: Chon Keith Admit Provider: Andrew Melo Primary Care Provider: PCP,NO Other Providers: Andrew Melo ; Luis Dunn Coding Level of Care Code D/C DAY MANAGEMENT >30 MINS Diagnoses Syncope and collapse R55 Closed rib fracture [id number] Encounter type: initial encounter Laterality: right Rib fracture type: multiple ribs Interstitial lung disease J84.9 Aortic stenosis I35.0 Cardiac valve disease etiology: etiology unspecified GERD (gastroesophageal reflux disease) K21.9 Accelerated idioventricular rhythm I44.2 Benign prostatic hyperplasia N40.0 Cardiomyopathy I42.9 Cardiomyopathy type: unspecified Leukocytosis D72.829
== END 2022-06-10 14:02 | disposition home health service (06) | DRG 312 ==
LOC: ED 12:12 → SUATTDRO 16:44 → EDINP 16:44 → 2S 17:00
DX: R09.02 Hypoxemia; E11.22 Type 2 diabetes mellitus with diabetic chronic kidney disease; E03.9 Hypothyroidism, unspecified; I35.0 Nonrheumatic aortic (valve) stenosis; S01.01XA Laceration without foreign body of scalp, initial encounter; J84.9 Interstitial pulmonary disease, unspecified; Z79.890 Hormone replacement therapy; N18.9 Chronic kidney disease, unspecified; W19.XXXA Unspecified fall, initial encounter; N40.0 Benign prostatic hyperplasia without lower urinary tract symptoms; Z83.3 Family history of diabetes mellitus; K21.9 Gastro-esophageal reflux disease without esophagitis; I95.1 Orthostatic hypotension; I12.9 Hypertensive chronic kidney disease with stage 1 through stage 4 chronic kidney disease, or unspecified chronic kidney disease; S22.41XA Multiple fractures of ribs, right side, initial encounter for closed fracture; Y92.009 Unspecified place in unspecified non-institutional (private) residence as the place of occurrence of the external cause; I42.9 Cardiomyopathy, unspecified; Z79.4 Long term (current) use of insulin

== ENCOUNTER 2023-03-26 15:57 | Inpatient (IN) ==
[2023-03-26] MEDS ORDERED: MoRPHine SULFATE 4 MG/ML 1 ML CARP\\VIAL IV STA ×2 (16:13→17:00)
--- NOTE | 2023-03-26 16:22 | Emergency Department Note ---
Impression & Plan Fall, Acute pain of right shoulder ED Provider Note INFORMANT: Patient ED PROVIDER(S): Bruce Stacy DO CHIEF COMPLAINT: Fall, right shoulder pain PLAN: Disposition: Admission Outpatient prescription management: none Discussion with: Orthopedics, Dr. Loza. I spoke with the hospitalist, who w ill see the patient for admission/observation and further evaluation and consultation. MEDICAL DECISION MAKING: This is a 83-year-old male who presents to the ED with a chief complaint of a fall and right shoulder pain. The patient states that he became dizzy and fell in his yard. He presents via ambulance with right shoulder pain. He states that it occurred just prior to arrival. On my exam, the patient suffered a small right elbow skin tear. He has range of motion of the right elbow without discomfort. He has significant pain in the right shoulder. The patient denies striking his head or loss of consciousness. There is no obvious head injury on my exam. No midline tenderness to the neck. No thorax tenderness or pain. No abdominal pain. No pain in the pelvis or the hips. No pain with axial loading of the left arm or lower extremities. The patient did receive IV fentanyl by ambulance. He states that his pain is coming back. Regards to the dizziness, he states that he does get dizzy on occasion. The patient's EKG shows a sinus bradycardia at a rate of 58 with right bundle branch block. A chest x-ray shows some chronic interstitial disease. X-ray of the right humerus reveals a displaced fracture. CBC did not show any significant anemia or leukocytosis. Sodium levels 126. This appears to be lower than his baseline. The BUN is 28. This is slightly elevated. I did speak with the orthopedist on-call, Dr. Loza. He recommends medicine admission and consult orthopedics. Triage Nursing notes reviewed. Vital Signs: reviewed Prior /Outside records reviewed: Pulmonology visit on 02/20/2023. Patient on CellCept and prednisone. Orthopedic note on 03/24/2022 shows the patient had a right shoulder reverse shoulder arthroplasty with biceps tenodesis. Differential diagnosis: Fracture, dislocation, soft tissue injury, neurovascular injury Diagnostics, as interpreted by me: 12 lead ECG: Sinus bradycardia rate of 58 with a right bundle branch block. No ST elevation. No PVCs. Normal QTc Cardiac Monitoring ordered: Sinus rhythm in the 60s Medical decision rules: [none] Imaging studies: Chest x-ray: Chronic appearing interstitial disease. X-ray of the right humerus: Humerus fracture. Procedures: Orthopedic splinting Critical care: none. HPI: See MDM above. PAST MEDICAL HISTORY: See Below PAST SURGICAL HISTORY: See Below SOCIAL HISTORY: See Below HOME MEDICATIONS:See Below ALLERGIES: See Below VITALS: See Below PHYSICAL EXAMINATION: See MDM for positive findings otherwise unremarkable. CONSTITUTIONAL/VITAL SIGNS: Reviewed GENERAL:done as appropriate INTEGUMENTARY: done as appropriate HEAD: done as appropriate EYES: done as appropriate RESPIRATORY: done as appropriate CARDIOVASCULAR:done as appropriate GI/ABDOMEN:done as appropriate EXTREMITIES: done as appropriate NEUROLOGICAL: done as appropriate PSYCHIATRIC:done as appropriate MUSCULOSKELETAL:done as appropriate TRIAGE NURSING DOCUMENTATION REVIEWED. Past Med/Surg History Medical History Accelerated idioventricular rhythm Asymptomatic. Beta-juanjose has been initiated since Holter monitor per cardio records Anxiety Aortic stenosis Mild AV stenosis on 10/15/20 ECHO "AV opens well" on 05/11/21 ECHO -Per 08/2021 cardio note- noted in 2019 - no significant stenosis on most recent ECHO- known sclerotic AV- "no significant stenosis" Cardiomyopathy LV systolic function has normalized. Etiology of CM unknown. Cervical spondylosis Cough DMII (diabetes mellitus, type 2) Frequent PVCs FOLLOWED BY DR. 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 [facility] History of bilateral knee replacement History of cardiac cath no stents>YEARS AGO AT [facility] History of colonoscopy History of esophagogastroduodenoscopy (EGD) with dilation History of tonsillectomy and adenoidectomy History of wisdom tooth extraction S/P dilatation of esophageal stricture Status post reverse total arthroplasty of right shoulder Family History Father Family history of diabetes mellitus Coronary heart disease Prostate cancer Myocardial infarction Uncle Coronary heart disease Sister Breast cancer Other No family history of adverse response to anesthesia Denies family history of Ovarian cancer Colorectal cancer Social History Smoking Status: Never smoker Second Hand Exposure: No; Do You Dip or Chew Tobacco: No; Hx Alcohol Use: No Hx Substance Use: No Preferred Language: Malagasy Communication Ability: Effective Visual Impairment: No Limitations Hearing Ability: Normal Pond Worker Required: No Beliefs That Will Affect Care: None marital status: / Current Living Situation: Alone current occupational status: retired How many Children do You have: 1 Feels Safe at Home: Yes Assistive Devices: None Allergies Allergies Allergy/AdvReac Type Severity Reaction Status Date / Time Sulfa (Sulfonamide Allergy Severe RASH, Verified 03/09/23 13:47 Antibiotics) HIVES, SWOLLEN MOUTH, THROAT SWELLING lisinopril Allergy Intermediate lethargic Verified 03/09/23 13:47 Penicillins Allergy Intermediate RASH, HIVES Verified 03/09/23 13:47 Home Meds Home Medications Medication Instructions Recorded Confirmed famotidine 40 mg tablet (Pepcid) 40 mg PO HS 11/02/20 03/09/23 insulin degludec 100 unit/mL (3 10 unit subcut QAM 01/31/21 03/09/23 mL) subcutaneous pen (Tresiba FlexTouch U-100 insulin) insulin lispro 100 unit/mL 6 unit subcut QPM 01/31/21 03/09/23 subcutaneous solution (Humalog U-100 Insulin) metoprolol succinate 25 mg 25 mg PO QPM 02/28/22 03/09/23 tablet,extended release 24 hr omeprazole 40 mg capsule,delayed 40 mg PO DAILY 02/13/23 03/09/23 release Previous Rx's Medication Instructions Recorded carbamazepine 200 mg tablet 200 mg PO BID #60 tabs 12/07/22 pen needle, diabetic 32 gauge x #100 ea 12/21/22" (BD Ultra-Fine Vale Pen Needle) gabapentin 300 mg capsule 300 mg PO TID #90 caps 01/31/23 mycophenolate mofetil 250 mg 250 mg PO BID #120 caps 01/31/23 capsule (CellCept) blood-glucose meter,continuous #1 ea 02/13/23 (Dexcom G7 Corporate Development Intern) blood-glucose sensor (Dexcom G7 #1 ea 02/13/23 Sensor device) guaifenesin 600 mg tablet, 600 mg PO Q12H PRN congestion #30 02/20/23 extended release 12 hr (Mucinex) tabs finasteride 5 mg tablet (Proscar) 5 mg PO HS #90 tabs 02/22/23 levofloxacin 750 mg tablet 750 mg PO DAILY #7 tabs 03/05/23 prednisone 5 mg tablet 5 mg PO QPM #60 tabs 03/05/23 allopurinol 100 mg tablet 100 mg PO DAILY #90 tabs 03/23/23 alprazolam 0.5 mg tablet (Xanax) 0.25 mg PO PM #15 tabs 03/23/23 escitalopram oxalate 10 mg tablet 10 mg PO QAM #90 tabs 03/23/23 (Lexapro) furosemide 20 mg tablet 20 mg PO DAILY #30 tabs 03/23/23 levothyroxine 50 mcg capsule 50 mcg PO QAM #90 caps 03/23/23 tamsulosin 0.4 mg capsule 0.4 mg PO DAILY #90 caps 03/23/23 Results & Data (ED) Vital Signs Vital Signs - 24 hr 03/26/23 16:08 03/26/23 16:08 03/26/23 16:21 Temperature 36.4 C L 36.4 C L Temperature Source Oral Oral Pulse Rate 102 H Pulse Rate [Apical] 102 H Pulse Rhythm [Apical] Regular Respiratory Rate 18 18 Respiratory Effort / Characteristics Non-Labored Spontaneous Non-Labored Spontaneous Respiratory Depth Normal Normal Respiratory Pattern Regular Regular Blood Pressure 153/76 H Blood Pressure [Right Arm] 153/76 H Blood Pressure Mean 101 Blood Pressure Mean [Right Arm] 101 Blood Pressure Position Lying Blood Pressure Position [Right Arm] Lying Pulse Oximetry 94 96 96 Oxygen Delivery Method Nasal Cannula Nasal Cannula Nasal Cannula Oxygen Flow Rate 2 2 2 Sepsis Recent Fever Within 48 Hours No Sepsis New/Unexplained Change in Mental Status No Sepsis Action Taken by Nursing No Action Required Oxygen Flow Rate - Titration Pulse Oximetry Post Tiitration 03/26/23 16:22 03/26/23 16:13 Temperature Temperature Source Pulse Rate 38 L Pulse Rate [Apical] Pulse Rhythm [Apical] Respiratory Rate Respiratory Effort / Characteristics Respiratory Depth Respiratory Pattern Blood Pressure Blood Pressure [Right Arm] Blood Pressure Mean Blood Pressure Mean [Right Arm] Blood Pressure Position Blood Pressure Position [Right Arm] Pulse Oximetry 88 L Oxygen Delivery Method Nasal Cannula Oxygen Flow Rate 0 Sepsis Recent Fever Within 48 Hours Sepsis New/Unexplained Change in Mental Status Sepsis Action Taken by Nursing Oxygen Flow Rate - Titration 2 Pulse Oximetry Post Tiitration 96 Laboratory Data 03/26/23 16:05 03/26/23 16:05 Lab Results 03/26/23 03/26/23 Range/Units 16:05 16:05 WBC 11.13 H (4.8-10.8) K/ul RBC 3.65 L (4.70-6.10) M/uL Hgb 11.2 L (14.0-18.0) g/dl Hct 32.3 L (42.0-52.0) % MCV 88.5 (80.0-100.0) fL MCH 30.7 (25.0-34.0) pg MCHC 34.7 (32.0-36.0) g/dL RDW Std Deviation 40.8 (36.4-46.3) fL RDW Coeff of Graham 12.5 (11.5-14.5) % Plt Count 312 (130-400) K/uL MPV 9.3 L (9.4-12.4) fL Immature Gran % (Auto) 1.3 % Neut % (Auto) 71.9 % Lymph % (Auto) 13.5 % Nye % (Auto) 9.7 % Eos % (Auto) 3.0 % Baso % (Auto) 0.6 % Neut # (Auto) 8.01 H (1.40-6.50) K/uL Lymph # (Auto) 1.50 (1.2-3.4) K/uL Nye # (Auto) 1.08 H (0.11-0.59) K/uL Eos # (Auto) 0.33 (0-0.50) K/uL Baso # (Auto) 0.07 (0-0.2) K/uL Immature Gran # (Auto) 0.14 (0.01-0.20) K/uL Sodium 126 L (136-145) mmol/L Potassium 4.1 (3.5-5.1) mmol/L Chloride 93 L (98-107) mmol/L Carbon Dioxide 26 (21-32) mmol/L Anion Gap 7 (3-11) BUN 28 H (6-23) mg/dl Creatinine 1.12 (0.6-1.4) mg/dl Est Cr Clr Drug Dosing 49.8 ml/min Est GFR ( Amer) 69.1 ml/min Est GFR (Non-Af Amer) 59.6 ml/min BUN/Creatinine Ratio 25.0 H (10-20) Glucose 112 H (70-99(Fasting)) mg/dl Calcium 8.8 (8.6-10.3) mg/dl Total Bilirubin 0.2 (0.2-1.0) mg/dl AST 16 (13-39) U/L ALT 13 (7-52) U/L Alkaline Phosphatase 94 (34-104) U/L Total Protein 6.1 (6.0-8.3) gm/dl Albumin 3.6 (3.4-5.0) gm/dl Globulin 2.5 (2.5-4.0) gm/dl Albumin/Globulin Ratio 1.4 (0.9-2) Administered Medications Discontinued Medications Morphine Sulfate (Morphine Sulfate 4 Mg/Ml 1 Ml Carp\\Vial) 4 mg IV NOW STA Stop: 03/26/23 16:14 Last Admin: 03/26/23 16:26 Dose: 4 mg Documented By: LUIZ Morphine Sulfate (Morphine Sulfate 4 Mg/Ml 1 Ml Carp\\Vial) 4 mg IV NOW STA Stop: 03/26/23 17:01 Last Admin: 03/26/23 17:30 Dose: 4 mg Documented By: ROSE Imaging Data Radiologist's Impression: Shoulder X-Ray 03/26/23 16:03 XR shoulder RT min 2V routine CLINICAL HISTORY: fall, pain TECHNIQUE: 3 views of the right shoulder were obtained. Comparison: Comparison is made to right shoulder radiographs 03/24/2022 FINDINGS: There is a mildly comminuted fracture of the humeral shaft at the distal aspect of the humeral arthroplasty component. Right reverse shoulder arthroplasty is noted. The overlying soft tissues are unremarkable. The visualized portions of the lungs are clear. IMPRESSION: Comminuted periprosthetic fracture at the distal aspect of the humeral stem component. ACT 112: Negative or not required by law. Electronically signed by: Juan Carlos Velasquez M.D. 03/26/2023 4:57 PM Chest X-Ray 05/15/23 16:14 XR chest 1V portable CLINICAL HISTORY: weakness TECHNIQUE: Single frontal radiograph of the chest was obtained. Comparison: Comparison is made to chest radiograph 02/21/2023 FINDINGS: No lines and tubes are seen. Calcified aortic knob is seen. Reticular i nterstitial opacities are seen. No evidence of pleural effusion or pneumothorax. Right shoulder reverse arthroplasty is seen. Please see x-ray shoulder for findings of humeral fracture. IMPRESSION: Interstitial lung disease is seen. Please see x-ray shoulder for findings of humeral fracture. ACT 112: Negative or not required by law. Electronically signed by: Juan Carlos Velasquez M.D. 03/26/2023 4:56 PM Discharge Plan Visit Data Chief Complaint: Shoulder Pain Stated Complaint: right shoulder pain, fell ED Provider: Bruce Stacy Discharge Problem: Fall, Acute pain of right shoulder Patient Disposition: Admitted As Inpatient Forms Stand Alone Forms: [facility] Prescriptions Prescriptions: No Action (DME) pen needle, diabetic [BD Ultra-Fine Vale Pen Needle] 32 gauge x 5/32" needle See Rx Instructions .Route Qty: 100 1RF Rx Instructions: USE TO TEST 2-3 TIMES DAILY OR DIRECTED gabapentin 300 mg capsule 300 mg PO TID Qty: 90 2RF mycophenolate mofetil [CellCept] 250 mg capsule 250 mg PO BID Qty: 120 2RF finasteride [Proscar] 5 mg tablet 5 mg PO HS Qty: 90 3RF levofloxacin 750 mg tablet 750 mg PO DAILY Qty: 7 0RF prednisone 5 mg tablet 5 mg PO QPM Qty: 60 3RF tamsulosin 0.4 mg capsule 0.4 mg PO DAILY Qty: 90 3RF alprazolam [Xanax] 0.5 mg tablet 0.25 mg PO PM Qty: 15 0RF allopurinol 100 mg tablet 100 mg PO DAILY Qty: 90 1RF escitalopram oxalate [Lexapro] 10 mg tablet 10 mg PO QAM Qty: 90 1RF furosemide 20 mg tablet 20 mg PO DAILY Qty: 30 5RF levothyroxine 50 mcg capsule 50 mcg PO QAM Qty: 90 1RF Tresiba FlexTouch U-100 100 unit/mL (3 mL) insulin pen 10 unit subcut QAM famotidine [Pepcid] 40 mg tablet 40 mg PO HS carbamazepine 200 mg tablet 200 mg PO BID Qty: 60 5RF insulin lispro [Humalog U-100 Insulin] 100 unit/mL solution 6 unit subcut QPM Patient Comments: TAKES BEFORE EVENING MEAL guaifenesin [Mucinex] 600 mg tablet extended release 12hr 600 mg PO Q12H PRN (Reason: congestion) Qty: 30 0RF omeprazole 40 mg capsule,delayed release(DR/EC) 40 mg PO DAILY (DME) Dexcom G7 Corporate Development Intern Misc See Rx Instructions .Route Qty: 1 0RF Rx Instructions: As directed- E11.9 (DME) Dexcom G7 Sensor Device See Rx Instructions .Route Qty: 1 0RF Rx Instructions: As directed E11.9 metoprolol succinate 25 mg Tablet Extended Release 24 Hr 25 mg PO QPM Referrals Referrals: Sallei Mckeon MD [Primary Care Provider] - Procedures Orthopedic Splinting/Casting Injury #1: Side: right Upper Extremity Injury Location: upper arm Upper Extremity Immobilizer: sling/shoulder immobilizer and posterior splint
[2023-03-26 16:31] LABS: Basophils # (auto) 0.07 K/uL (0-0.2); Basophils % (auto) 0.6 %; Eosinophils # (auto) 0.33 K/uL (0-0.50); Hematocrit (blood only) 32.3 % (42.0-52.0); Hemoglobin 11.2 g/dl (14.0-18.0); Immature Granulocytes # (auto) 0.14 K/uL (0.01-0.20); Immature Granulocytes % (auto) 1.3 %; Lymphocytes % (auto) 13.5 %; Mean Corpuscular Hemoglobin 30.7 pg (25.0-34.0); Mean Corpuscular Hgb Conc 34.7 g/dL (32.0-36.0); Mean Corpuscular Volume 88.5 fL (80.0-100.0); Mean Platelet Volume 9.3 fL (9.4-12.4); Monocytes # (auto) 1.08 K/uL (0.11-0.59); Monocytes % (auto) 9.7 %; Neutrophils # (auto) 8.01 K/uL (1.40-6.50); Neutrophils % (auto) 71.9 %; Platelet Count 312 K/uL (130-400); RDW Coefficient of Variation 12.5 % (11.5-14.5); RDW Standard Deviation 40.8 fL (36.4-46.3); Red Blood Count 3.65 M/uL (4.70-6.10); White Blood Count 11.13 K/ul (4.8-10.8)
[2023-03-26 16:50] LABS: Albumin Globulin Ratio 1.4 (0.9-2); Albumin Level 3.6 gm/dl (3.4-5.0); Bilirubin,Total 0.2 mg/dl (0.2-1.0); Calcium 8.8 mg/dl (8.6-10.3); Creatinine Clr Calc Pharmacy 49.8 ml/min; Est GFR (African American) 69.1 ml/min; Est GFR (Non-African American) 59.6 ml/min; Globulin 2.5 gm/dl (2.5-4.0); Potassium 4.1 mmol/L (3.5-5.1); Total Protein 6.1 gm/dl (6.0-8.3)
--- NOTE | 2023-03-26 16:58 | XRay Report ---
XR chest 1V portable CLINICAL HISTORY: weakness TECHNIQUE: Single frontal radiograph of the chest was obtained. Comparison: Comparison is made to chest radiograph 02/21/2023 FINDINGS: No lines and tubes are seen. Calcified aortic knob is seen. Reticular interstitial opacities are seen . No evidence of pleural effusion or pneumothorax. Right shoulder reverse arthroplasty is seen. Pleas e see x-ray shoulder for findings of humeral fracture. IMPRESSION: Interstitial lung disease is seen. Please see x-ray shoulder for findings of humeral fracture. ACT 112: Negative or not required by law. Electronically signed by: Juan Carlos Velasquez M.D. 03/26/2023 4:56 PM
--- NOTE | 2023-03-26 16:59 | XRay Report ---
XR shoulder RT min 2V routine CLINICAL HISTORY: fall, pain TECHNIQUE: 3 views of the right shoulder were obtained. Comparison: Comparison is made to right shoulder radiographs 03/24/2022 FINDINGS: There is a mildly comminuted fracture of the humeral shaft at the distal aspect of the humeral arthro plasty component. Right reverse shoulder arthroplasty is noted. The overlying soft tissues are unrema rkable. The visualized portions of the lungs are clear. IMPRESSION: Comminuted periprosthetic fracture at the distal aspect of the humeral stem component. ACT 112: Negative or not required by law. Electronically signed by: Juan Carlos Velasquez M.D. 03/26/2023 4:57 PM
--- NOTE | 2023-03-26 18:22 | History & Physical Report ---
Date of Service March 26, 2023 Assessment & Plan (1) Fall: (2) Acute pain of right shoulder: (3) Sputum production: (4) Hypothyroidism: (5) Cervical spondylosis: (6) GERD (gastroesophageal reflux disease): (7) Cardiomyopathy: (8) Accelerated idioventricular rhythm: (9) Interstitial lung disease: (10) Venous insufficiency: (11) BPH (benign prostatic hyperplasia): (12) Chronic kidney disease, stage III (moderate): (13) Syncope: Plan Ryan So is a 83 year old male who presented to the ED today after a fall at home. His PMH includes aortic stenosis, orthostatic hypotension, cardiomyopathy, R BBB, gout, anxiety, DMII, interstitial lung disease, GERD, and venous insufficiency. He was found to have a fracture of his right humerus and was admitted for treatment of his fracture. R. Humerus Fracture -Shoulder XR: "comminuted periprosthetic fracture at the distal aspect of the humeral stem component." -Consult orthopedics, appreciate recommendations -Splint in place -Neurovascular checks q4h -Pain relief: morphine 1-2mg q4h Presyncope/Dizziness -Hx of orthostatic hypotension, suspect this was etiology of episode today -History of aortic stenosis, most recent echo (2021) LVH with preserved EF 65- 70% -Low suspicion of worsening aortic stenosis as contributing factor -Will defer repeat echo at this time -No current symptoms of dizziness, chest pain, or palpitations -EKG with Sinus Bradycardia with R BBB -Monitor on telemetry -Continue home metoprolol, furosemide Hyponatremia -Na at 126 on admission -Baseline at low 130s -Will monitor with BMP in a.m. -If fails to improve, could consider Carbamazepine as possible contributing factor for SIADH -Will start 2L NSS at 80ml/hr -No history of CHF Hypoxia, Chronic Interstitial Lung Disease -Baseline requires no supplemental oxygen -Had saturation drop to 88% after morphine, no dyspnea at rest. Currently on 2L NC, can wean O2 as tolerated. -Continue home Prednisone, CellCept Diabetes Mellitus Type 2 -At home: Humalog 6u qPM, Tresiba 10u qAM -Last A1C 6.9% (09/02) -Sliding scale insulin while admitted GERD -Continue home Famotidine, Omeprazole Anxiety -Continue home Escitalopram, Xanax Gout -Continue home Allopurinol Occipital Neuralgia, Cervicalgia -Continue home Carbamazepine 200mg BID -Continue home Gabapentin Hypothyroidism -Continue home Levothyroxine -Will order TSH BPH -Continue home finasteride Diet: Heart healthy, NPO at midnight DVT Prophylaxis: SCDs, 1x dose of subQ heparin Dispo: Telemetry Code status: DNR/DNI History of Present Illness Chief Complaint: fall Primary Care Provider: Sallie Mckeon MD Ryan is a 83 year old male who presented to the ED today after a fall at home. His PMH includes aortic stenosis, orthostatic hypotension, cardiomyopathy, R BBB, gout, anxiety, DMII, interstitial lung disease, GERD, and venous in sufficiency. He recalls being outside sitting on his porch this afternoon around 3pm- then got up from his chair when he started feeling very dizzy. States that he "tried to turn" while falling and landed on his right side/back and immediately felt pain. He is unsure if he hit his head, states he "probably" did. He states he did not lose consciousness. He lives alone and no one was home when this occurred- however his next door neighbor returned home shortly after and called his son, Vignesh. He states he is unsure of how long he was down but based on the last time he checked the time prior to the event it was about 10-15 minutes. He notes that prior to the incident, he had been feeling well. He had eaten and drank per usual today, recalls having a bowl of fruit earlier in the afternoon. Ryan states he has had episodes of dizziness for a long time, but has not had a fall in over one year. He has dyspnea on exertion, but states it has not been worsening. He denies any recent changes in medications. He denies any current chest pain, dizziness, changes in bowel or bladder habits, fever, body aches, chills, or dyspnea at rest. Allergies Allergy/AdvReac Type Severity Reaction Status Date / Time Sulfa (Sulfonamide Allergy Severe RASH, Verified 03/26/23 21:14 Antibiotics) HIVES, SWOLLEN MOUTH, THROAT SWELLING lisinopril Allergy Intermediate lethargic Verified 03/26/23 21:14 Penicillins Allergy Intermediate RASH, HIVES Verified 03/26/23 21:14 Home Medications Medication Instructions Recorded Confirmed Type famotidine 40 mg tablet (Pepcid) 40 mg PO HS 11/02/20 03/26/23 History insulin degludec 100 unit/mL (3 10 unit subcut QAM 01/31/21 03/26/23 History mL) subcutaneous pen (Tresiba FlexTouch U-100 insulin) insulin lispro 100 unit/mL 6 unit subcut QPM 01/31/21 03/26/23 History subcutaneous solution (Humalog U-100 Insulin) metoprolol succinate 25 mg 25 mg PO QPM 02/28/22 03/26/23 History tablet,extended release 24 hr pen needle, diabetic 32 gauge x #100 ea 12/21/22 02/13/23 Rx 32" (BD Ultra-Fine Vale Pen Needle) gabapentin 300 mg capsule 300 mg PO TID #90 caps 01/31/23 03/26/23 Rx mycophenolate mofetil 250 mg 250 mg PO BID #120 caps 01/31/23 03/26/23 Rx capsule (CellCept) blood-glucose meter,continuous #1 ea 02/13/23 02/13/23 Rx (Dexcom G7 Microsoft Windows Engineer) blood-glucose sensor (Dexcom G7 #1 ea 02/13/23 02/13/23 Rx Sensor device) omeprazole 40 mg capsule,delayed 40 mg PO DAILY 02/13/23 03/26/23 History release guaifenesin 600 mg tablet, 600 mg PO Q12H PRN congestion #30 02/20/23 03/26/23 Rx extended release 12 hr (Mucinex) tabs prednisone 5 mg tablet 5 mg PO QPM #60 tabs 03/05/23 03/26/23 Rx allopurinol 100 mg tablet 100 mg PO DAILY #90 tabs 03/23/23 03/26/23 Rx alprazolam 0.5 mg tablet (Xanax) 0.25 mg PO PM #15 tabs 03/23/23 03/26/23 Rx escitalopram oxalate 10 mg tablet 10 mg PO QAM #90 tabs 03/23/23 03/26/23 Rx (Lexapro) levothyroxine 50 mcg capsule 50 mcg PO QAM #90 caps 03/23/23 03/26/23 Rx finasteride 5 mg tablet (Proscar) 5 mg PO QPM 03/26/23 03/26/23 History carbamazepine 200 mg tablet 200 mg PO QAM 03/27/23 03/27/23 History furosemide 20 mg tablet 20 mg PO Q2D 03/27/23 03/27/23 History Past Med/Surg History Medical History Accelerated idioventricular rhythm Asymptomatic. Beta-juanjose has been initiated since Holter monitor per cardio records Anxiety Aortic stenosis Mild AV stenosis on 10/15/20 ECHO "AV opens well" on 05/11/21 ECHO -Per 08/2021 cardio note- noted in 2019 - no significant stenosis on most recent ECHO- known sclerotic AV- "no significant stenosis" Cardiomyopathy LV systolic function has normalized. Etiology of CM unknown. Cervical spondylosis Cough DMII (diabetes mellitus, type 2) Frequent PVCs FOLLOWED BY DR. 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 [facility] [place] History of bilateral knee replacement History of cardiac cath no stents>YEARS AGO AT [facility] History of colonoscopy History of esophagogastroduodenoscopy (EGD) with dilation History of tonsillectomy and adenoidectomy History of wisdom tooth extraction S/P dilatation of esophageal stricture Status post reverse total arthroplasty of right shoulder Family History Father Family history of diabetes mellitus Coronary heart disease Prostate cancer Myocardial infarction Uncle Coronary heart disease Sister Breast cancer Other No family history of adverse response to anesthesia Denies family history of Ovarian cancer Colorectal cancer Social History Smoking Status: Never smoker Second Hand Exposure: No; Do You Dip or Chew Tobacco: No; Hx Alcohol Use: No Hx Substance Use: No Preferred Language: Burkinan Communication Ability: Effective Visual Impairment: No Limitations Hearing Ability: Normal Assistant Plant Control Operator Required: No Beliefs That Will Affect Care: None marital status: / Current Living Situation: Alone current occupational status: retired How many Children do You have: 1 Other Information That Helps Us Care for You: No Feels Safe at Home: Yes Safety Concerns: Feels Safe At This Time Assistive Devices: Cane and Walker Review of Systems Review of Systems: As per above Physical Exam Constitutional: WD/WN, vitals as above Eyes: Anicteric sclerae ENMT: external ear and nose normal, oropharynx normal No bruising or lacerations visible. Neck: trachea midline, no thyromegaly Respiratory: Anterior lung flannery clear, no increased work of breathing. NC oxygen in place. Cardiovascular: Regular rate and rhythm. +Systolic murmur. No rubs or gallops. Radial pulses +2 bilaterally, capillary refill <2s bilaterally. No lower extremity edema. Gastrointestinal (Abdomen): normal bowel sounds, soft, nontender, no hepatosplenomegaly Musculoskeletal: Right UE in orthopedic splint, able to move right digits. Pain with any movement of R UE/shoulder. Moves L UE and bilateral LE independently. Skin: 3cm bleeding laceration of L UE. Neurologic: normal touch/pain/proprioception, moves all extremities and awake Psychiatric: A+Ox3, euthymic affect Results & Data Results & Data Vital Signs (Past 12 Hours) Vital Signs Temp Pulse Pulse Resp BP BP Pulse Ox 03/26/23 16:13 38 L 03/26/23 16:22 88 L 03/26/23 16:21 96 03/26/23 16:08 36.4 C L 102 H 18 153/76 H 96 03/26/23 16:08 36.4 C L 102 H 18 153/76 H 94 O2 Del Method O2 Flow Rate 03/26/23 16:13 03/26/23 16:22 Nasal Cannula 0 03/26/23 16:21 Nasal Cannula 2 03/26/23 16:08 Nasal Cannula 2 03/26/23 16:08 Nasal Cannula 2 Laboratory Results 03/26/23 03/26/23 Range/Units 16:05 16:05 WBC 11.13 H (4.8-10.8) K/ul RBC 3.65 L (4.70-6.10) M/uL Hgb 11.2 L (14.0-18.0) g/dl Hct 32.3 L (42.0-52.0) % MCV 88.5 (80.0-100.0) fL MCH 30.7 (25.0-34.0) pg MCHC 34.7 (32.0-36.0) g/dL RDW Std Deviation 40.8 (36.4-46.3) fL RDW Coeff of Graham 12.5 (11.5-14.5) % Plt Count 312 (130-400) K/uL MPV 9.3 L (9.4-12.4) fL Immature Gran % (Auto) 1.3 % Neut % (Auto) 71.9 % Lymph % (Auto) 13.5 % [place] % (Auto) 9.7 % Eos % (Auto) 3.0 % Baso % (Auto) 0.6 % Neut # (Auto) 8.01 H (1.40-6.50) K/uL Lymph # (Auto) 1.50 (1.2-3.4) K/uL [place] # (Auto) 1.08 H (0.11-0.59) K/uL Eos # (Auto) 0.33 (0-0.50) K/uL Baso # (Auto) 0.07 (0-0.2) K/uL Immature Gran # (Auto) 0.14 (0.01-0.20) K/uL Sodium 126 L (136-145) mmol/L Potassium 4.1 (3.5-5.1) mmol/L Chloride 93 L (98-107) mmol/L Carbon Dioxide 26 (21-32) mmol/L Anion Gap 7 (3-11) BUN 28 H (6-23) mg/dl Creatinine 1.12 (0.6-1.4) mg/dl Est Cr Clr Drug Dosing 49.8 ml/min Est GFR ( Amer) 69.1 ml/min Est GFR (Non-Af Amer) 59.6 ml/min BUN/Creatinine Ratio 25.0 H (10-20) Glucose 112 H (70-99(Fasting)) mg/dl Calcium 8.8 (8.6-10.3) mg/dl Total Bilirubin 0.2 (0.2-1.0) mg/dl AST 16 (13-39) U/L ALT 13 (7-52) U/L Alkaline Phosphatase 94 (34-104) U/L Total Protein 6.1 (6.0-8.3) gm/dl Albumin 3.6 (3.4-5.0) gm/dl Globulin 2.5 (2.5-4.0) gm/dl Albumin/Globulin Ratio 1.4 (0.9-2) Diagnostic Findings Shoulder X-Ray 03/26/23 16:03 XR shoulder RT min 2V routine CLINICAL HISTORY: fall, pain TECHNIQUE: 3 views of the right shoulder were obtained. Comparison: Comparison is made to right shoulder radiographs 03/24/2022 FINDINGS: There is a mildly comminuted fracture of the humeral shaft at the distal aspect of the humeral arthroplasty component. Right reverse shoulder arthroplasty is noted. The overlying soft tissues are unremarkable. The visualized portions of the lungs are clear. IMPRESSION: Comminuted periprosthetic fracture at the distal aspect of the humeral stem component. ACT 112: Negative or not required by law. Electronically signed by: Juan Carlos Velasquez M.D. 03/26/2023 4:57 PM Chest X-Ray 03/26/23 16:14 XR chest 1V portable CLINICAL HISTORY: weakness TECHNIQUE: Single frontal radiograph of the chest was obtained. Comparison: Comparison is made to chest radiograph 02/21/2023 FINDINGS: No lines and tubes are seen. Calcified aortic knob is seen. Reticular interstitial opacities are seen. No evidence of pleural effusion or pneumothorax. Right shoulder reverse arthroplasty is seen. Please see x-ray shoulder for findings of humeral fracture. IMPRESSION: Interstitial lung disease is seen. Please see x-ray shoulder for findings of humeral fracture. ACT 112: Negative or not required by law. Electronically signed by: Juan Carlos Velasquez M.D. 03/26/2023 4:56 PM Supervising Physician Co-Signing Physician Notes During face to face encounter, I obtained a history of present illness and performed a physical examination, I discussed plan of care with Dr. Dobbins and patient while answering all of their questions. I reviewed above note and agree with it except for the following: Patient is admitted for a right humerus fracture. will consult ortho. Resident Activity Tracking Resident Involvement: Resident Care Provided Care Provided: [facility] (11) BPH (benign prostatic hyperplasia) Lower urinary tract symptom presence: symptoms absent Qualified Code(s): N40.0 - Benign prostatic hyperplasia without lower urinary tract symptoms
[2023-03-26] MEDS ORDERED: MoRPHine SULFATE 2 MG/ML CARP IV PRN (20:27)
[2023-03-26] MEDS ORDERED: CARBOHYDRATES FOR HYPOGLYCEMIA PO PRN (20:44)
[2023-03-26] MEDS ORDERED: GLUCOSE 40% GEL 15 GM TUBE PO PRN (20:44)
[2023-03-26] MEDS ORDERED: GLUCAGON FOR INJ 1 MG VIAL SQ PRN (20:44)
[2023-03-26] MEDS ORDERED: DEXTROSE 50% 50 ML SYRINGE IV PRN (20:44)
[2023-03-26] MEDS ORDERED: GLUCOSE 10 TAB/TUBE PO PRN (20:44)
[2023-03-26] MEDS: LANTUS PER UNIT CHARGE SQ SCH (21:15)
[2023-03-26] MEDS: INSULIN ASPART PER UNIT CHARGE SC SCH (21:15)
[2023-03-26] MEDS ORDERED: oxyCODONE HCL 15 MG TABCR (OxyCONTIN) PO STA (21:17)
[2023-03-26] MEDS ORDERED: oxyCODONE HCL 10 MG TABCR (OxyCONTIN) PO STA (21:45)
[2023-03-26] MEDS: SODIUM CHLORIDE 0.9% 1000ML 1,000 ML IV SCH (21:52)
[2023-03-26] MEDS ORDERED: predniSONE 5 MG TAB PO SCH (23:18)
[2023-03-26] MEDS ORDERED: ACETAMINOPHEN 325 MG TAB PO PRN (23:18)
[2023-03-26] MEDS ORDERED: HEPARIN SOD 5,000 UNIT/0.5 ML VIAL SQ STA (23:35)
[2023-03-27] MEDS: MYCOPHENOLATE MOFETIL 250 MG CAP PO SCH ×3 (00:17→20:56)
[2023-03-27] MEDS: carBAMazepine 200 MG TABLET PO SCH ×2 (00:18→11:34)
[2023-03-27] MEDS: FAMOTIDINE 40 MG TABLET PO SCH ×2 (00:19→20:56)
[2023-03-27] MEDS: FINASTERIDE 5 MG TAB PO SCH ×2 (00:19→20:56)
[2023-03-27] MEDS: METOPROLOL SUCC 25MG EXT REL TAB PO SCH ×2 (00:20→20:57)
[2023-03-27] MEDS: GABAPENTIN 300 MG CAP PO SCH ×4 (00:20→20:57)
[2023-03-27] MEDS: ALPRAZolam 0.5 MG TABLET PO SCH ×2 (00:21→21:00)
[2023-03-27] MEDS: MoRPHine SULFATE 2 MG/ML CARP IV PRN ×4 (01:08→19:31)
[2023-03-27] MEDS: LEVOTHYROXINE SODIUM 50 MCG TABLET PO SCH (04:57)
[2023-03-27 07:29] LABS: Basophils # (auto) 0.06 K/uL (0-0.2); Basophils % (auto) 0.6 %; Eosinophils # (auto) 0.05 K/uL (0-0.50); Eosinophils % (auto) 0.5 %; Hematocrit (blood only) 33.6 % (42.0-52.0); Hemoglobin 11.4 g/dl (14.0-18.0); Immature Granulocytes % (auto) 0.9 %; Lymphocytes # (auto) 0.64 K/uL (1.2-3.4); Lymphocytes % (auto) 5.9 %; Mean Corpuscular Hemoglobin 31.1 pg (25.0-34.0); Mean Corpuscular Hgb Conc 33.9 g/dL (32.0-36.0); Mean Corpuscular Volume 91.8 fL (80.0-100.0); Mean Platelet Volume 10.9 fL (9.4-12.4); Monocytes # (auto) 0.65 K/uL (0.11-0.59); Neutrophils # (auto) 9.31 K/uL (1.40-6.50); Neutrophils % (auto) 86.1 %; Platelet Count 244 K/uL (130-400); RDW Standard Deviation 43.2 fL (36.4-46.3); Red Blood Count 3.66 M/uL (4.70-6.10); White Blood Count 10.81 K/ul (4.8-10.8)
[2023-03-27 07:36] LABS: Calcium 9.1 mg/dl (8.6-10.3); Creatinine Clr Calc Pharmacy 57.2 ml/min; Est GFR (African American) 79.2 ml/min; Est GFR (Non-African American) 68.3 ml/min; Potassium 4.9 mmol/L (3.5-5.1)
[2023-03-27] MEDS: INSULIN ASPART PER UNIT CHARGE SC SCH ×4 (08:55→21:55)
[2023-03-27] MEDS ORDERED: FUROSEMIDE 20 MG TAB PO SCH ×2 (09:00→17:30)
[2023-03-27] MEDS: LANTUS PER UNIT CHARGE SQ SCH ×2 (10:11→22:02)
[2023-03-27] MEDS: SODIUM CHLORIDE 0.9% 1000ML 1,000 ML IV SCH (10:24)
--- NOTE | 2023-03-27 10:32 | Electrocardiogram Report ---
Test Reason : Blood Pressure : / mmHG Vent. Rate : 058 BPM Atrial Rate : 058 BPM P-R Int : 158 ms QRS Dur : 164 ms QT Int : 474 ms P-R-T Axes : 032 -19 -13 degrees QTc Int : 465 ms Sinus bradycardia Right bundle branch block Abnormal ECG When compared with ECG of 08-JUN-2022 12:18, No significant change was found Confirmed by Tommy Martinez ([id number]) on 03/27/2023 10:32:15 AM Referred By: REFERRED SELF Confirmed By:Terry Martinez
[2023-03-27] MEDS: PANTOprazole 40 MG TAB PO SCH (11:35)
[2023-03-27] MEDS: allopurinoL 100 MG TAB PO SCH (11:35)
[2023-03-27] MEDS: TAMSULOSIN HCL 0.4 MG CAP PO SCH (11:36)
[2023-03-27] MEDS: ESCITALOPRAM OXALATE 10 MG TAB PO SCH (11:36)
--- NOTE | 2023-03-27 15:47 | XCELERA ---
[id number]
--- NOTE | 2023-03-27 16:10 | Orthopedic Consultation ---
Date of Consultation March 27, 2023 Assessment & Plan (1) Periprosthetic fracture around internal prosthetic joint: Right periprosthetic proximal humerus fracture. Status post right reverse total shoulder arthroplasty. Case discussed with Dr. Johnson. Patient will need to undergo ORIF of this fracture. We discussed the possibility of removing his current stem and placing a longer stem as well as the possibility of a plate and screw device. Patient understands and is agreeable. Currently the patient is hyponatremic. Hospitalist service currently working on correcting. We will make him n.p.o. after midnight and plan for OR tomorrow if electrolytes are acceptable. History of Present Illness Reason for Consultation: Right periprosthetic fracture of the proximal humerus Attending Physician: Ilene Simons MD History of Present Illness Patient is an 83-year-old man who was admitted yesterday after a fall at home.His PMH includes aortic stenosis, orthostatic hypotension, cardiomyopathy, R BBB, gout, anxiety, DMII, interstitial lung disease, GERD, and venous insufficiency. Patient is known to our practice and underwent a reverse total shoulder arthroplasty by Dr. Johnson in March of last year. Patient states that he was doing quite well. He was having a fairly good day yesterday. He was sitting in the chair on his porch and when he stood up and began ambulating back into the house he became very lightheaded and dizzy. Patient tried to turn to get back to his chair however he lost his balance and fell to the floor. He apparently had fallen onto his right side and back. He did not lose consciousness. He denies any chest pain or overt shortness of breath prior to or after the fall. He was not on the floor long and was found by his neighbor and son after calling them. He was brought to the emergency room and was found that he had a right proximal periprosthetic humerus fracture. He was placed in a sling and was admitted for further care. We have been asked to see him for his fracture. Allergies Allergy/AdvReac Type Severity Reaction Status Date / Time Sulfa (Sulfonamide Allergy Severe RASH, Verified 03/26/23 21:14 Antibiotics) HIVES, SWOLLEN MOUTH, THROAT SWELLING lisinopril Allergy Intermediate lethargic Verified 03/26/23 21:14 Penicillins Allergy Intermediate RASH, HIVES Verified 03/26/23 21:14 Home Medications Medication Instructions Recorded Confirmed Type famotidine 40 mg tablet (Pepcid) 40 mg PO HS 11/02/20 03/26/23 History insulin degludec 100 unit/mL (3 10 unit subcut QAM 01/31/21 03/26/23 History mL) subcutaneous pen (Tresiba FlexTouch U-100 insulin) insulin lispro 100 unit/mL 6 unit subcut QPM 01/31/21 03/26/23 History subcutaneous solution (Humalog U-100 Insulin) metoprolol succinate 25 mg 25 mg PO QPM 02/28/22 03/26/23 History tablet,extended release 24 hr pen needle, diabetic 32 gauge x #100 ea 12/21/22 02/13/23 Rx 532" (BD Ultra-Fine Vale Pen Needle) gabapentin 300 mg capsule 300 mg PO TID #90 caps 01/31/23 03/26/23 Rx mycophenolate mofetil 250 mg 250 mg PO BID #120 caps 01/31/23 03/26/23 Rx capsule (CellCept) blood-glucose meter,continuous #1 ea 02/13/23 02/13/23 Rx (Dexcom G7 Meat Stringer) blood-glucose sensor (Dexcom G7 #1 ea 02/13/23 02/13/23 Rx Sensor device) omeprazole 40 mg capsule,delayed 40 mg PO DAILY 02/13/23 03/26/23 History release guaifenesin 600 mg tablet, 600 mg PO Q12H PRN congestion #30 02/20/23 03/26/23 Rx extended release 12 hr (Mucinex) tabs prednisone 5 mg tablet 5 mg PO QPM #60 tabs 03/05/23 03/26/23 Rx allopurinol 100 mg tablet 100 mg PO DAILY #90 tabs 03/23/23 03/26/23 Rx alprazolam 0.5 mg tablet (Xanax) 0.25 mg PO PM #15 tabs 03/23/23 03/26/23 Rx escitalopram oxalate 10 mg tablet 10 mg PO QAM #90 tabs 03/23/23 03/26/23 Rx (Lexapro) furosemide 20 mg tablet 20 mg PO DAILY #30 tabs 03/23/23 03/26/23 Rx levothyroxine 50 mcg capsule 50 mcg PO QAM #90 caps 03/23/23 03/26/23 Rx finasteride 5 mg tablet (Proscar) 5 mg PO QPM 03/26/23 03/26/23 History spironolactone 25 mg tablet 12.5 mg PO QAM 03/26/23 03/26/23 History Patient History Medical History Accelerated idioventricular rhythm Asymptomatic. Beta-juanjose has been initiated since Holter monitor per cardio records Anxiety Aortic stenosis Mild AV stenosis on 10/15/20 ECHO "AV opens well" on 05/11/21 ECHO -Per 08/2021 cardio note- noted in 2019 - no significant stenosis on most recent ECHO- known sclerotic AV- "no significant stenosis" Cardiomyopathy LV systolic function has normalized. Etiology of CM unknown. Cervical spondylosis Cough DMII (diabetes mellitus, type 2) Frequent PVCs FOLLOWED BY DR. 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 [facility] [place] History of bilateral knee replacement History of cardiac cath no stents>YEARS AGO AT [facility] History of colonoscopy History of esophagogastroduodenoscopy (EGD) with dilation History of tonsillectomy and adenoidectomy History of wisdom tooth extraction S/P dilatation of esophageal stricture Status post reverse total arthroplasty of right shoulder Family History Father Family history of diabetes mellitus Coronary heart disease Prostate cancer Myocardial infarction Uncle Coronary heart disease Sister Breast cancer Other No family history of adverse response to anesthesia Denies family history of Ovarian cancer Colorectal cancer Social History Smoking Status: Never smoker Second Hand Exposure: No; Do You Dip or Chew Tobacco: No; Hx Alcohol Use: No Hx Substance Use: No Preferred Language: Swedish Communication Ability: Effective Visual Impairment: No Limitations Hearing Ability: Normal Inside Upholsterer Required: No Beliefs That Will Affect Care: None marital status: / Current Living Situation: Alone current occupational status: retired How many Children do You have: 1 Other Information That Helps Us Care for You: No Feels Safe at Home: Yes Safety Concerns: Feels Safe At This Time Assistive Devices: Cane and Walker Physical Exam Physical Exam: Patient is an 83-year-old white male who appears his stated age. He is alert and oriented x3. No acute distress. Pleasant cooperative. On examination of his right upper extremity, he is left in his sling. He also has a makeshift splint on the posterior aspect of his right upper extremity. He has good range of motion of his right wrist and fingers. 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 Capillary refill is less than 2 seconds. He has tenderness on palpation of the proximal humerus and shoulder area. Swelling noted. Patient denies any other pain at this time. He states that his left upper extremity is without discomfort. He has multiple areas where skin abrasions have been treated He has good range of motion of his left upper extremity at this time. He denies any discomfort in the lower extremities at the hips, knees, ankles. He denies any new cervical, thoracic, lumbar pain. There is no gross motor or sensory loss at this time. Results & Data Vital Signs (Past 12 Hours) Vital Signs Temp Pulse Pulse Resp BP Pulse Ox O2 Del Method 03/27/23 10:40 36.3 C L 69 18 116/67 95 Room Air 03/27/23 09:24 Room Air 03/27/23 07:33 36.7 C 68 20 131/70 94 Room Air 03/27/23 07:04 63 03/27/23 04:26 36.6 C 67 18 155/79 H 93 Room Air Laboratory Results Laboratory Results WBC 10.81 K/ul (4.8-10.8) H 03/27/23 06:05 RBC 3.66 M/uL (4.70-6.10) L 03/27/23 06:05 Hgb 11.4 g/dl (14.0-18.0) L 03/27/23 06:05 Hct 33.6 % (42.0-52.0) L 03/27/23 06:05 MCV 91.8 fL (80.0-100.0) 03/27/23 06:05 MCH 31.1 pg (25.0-34.0) 03/27/23 06:05 MCHC 33.9 g/dL (32.0-36.0) 03/27/23 06:05 RDW Std Deviation 43.2 fL (36.4-46.3) 03/27/23 06:05 RDW Coeff of Graham 13.0 % (11.5-14.5) 03/27/23 06:05 Plt Count 244 K/uL (130-400) 03/27/23 06:05 MPV 10.9 fL (9.4-12.4) 03/27/23 06:05 Immature Gran % (Auto) 0.9 % 03/27/23 06:05 Neut % (Auto) 86.1 % 03/27/23 06:05 Lymph % (Auto) 5.9 % 03/27/23 06:05 Screven % (Auto) 6.0 % 03/27/23 06:05 Eos % (Auto) 0.5 % 03/27/23 06:05 Baso % (Auto) 0.6 % 03/27/23 06:05 Neut # (Auto) 9.31 K/uL (1.40-6.50) H 03/27/23 06:05 Lymph # (Auto) 0.64 K/uL (1.2-3.4) L 03/27/23 06:05 Screven # (Auto) 0.65 K/uL (0.11-0.59) H 03/27/23 06:05 Eos # (Auto) 0.05 K/uL (0-0.50) 03/27/23 06:05 Baso # (Auto) 0.06 K/uL (0-0.2) 03/27/23 06:05 Immature Gran # (Auto) 0.10 K/uL (0.01-0.20) 03/27/23 06:05 Sodium 127 mmol/L (136-145) L 03/27/23 06:05 Potassium 4.9 mmol/L (3.5-5.1) 03/27/23 06:05 Chloride 94 mmol/L (98-107) L 03/27/23 06:05 Carbon Dioxide 25 mmol/L (21-32) 03/27/23 06:05 Anion Gap 8 (3-11) 03/27/23 06:05 BUN 22 mg/dl (6-23) 03/27/23 06:05 Creatinine 1.00 mg/dl (0.6-1.4) 03/27/23 06:05 Est Cr Clr Drug Dosing 57.2 ml/min 03/27/23 06:05 Est GFR ( Amer) 79.2 ml/min 03/27/23 06:05 Est GFR (Non-Af Amer) 68.3 ml/min 03/27/23 06:05 BUN/Creatinine Ratio 22.0 (10-20) H 03/27/23 06:05 Glucose 119 mg/dl (70-99(Fasting)) H 03/27/23 06:05 POC Glucose 114 mg/dl (70-99) H 03/27/23 12:18 Calcium 9.1 mg/dl (8.6-10.3) 03/27/23 06:05 Total Bilirubin 0.2 mg/dl (0.2-1.0) 03/26/23 16:05 AST 16 U/L (13-39) 03/26/23 16:05 ALT 13 U/L (7-52) 03/26/23 16:05 Alkaline Phosphatase 94 U/L (34-104) 03/26/23 16:05 Total Protein 6.1 gm/dl (6.0-8.3) 03/26/23 16:05 Albumin 3.6 gm/dl (3.4-5.0) 03/26/23 16:05 Globulin 2.5 gm/dl (2.5-4.0) 03/26/23 16:05 Albumin/Globulin Ratio 1.4 (0.9-2) 03/26/23 16:05 TSH 4.450 uIu/ml (0.300-4.500) 03/27/23 06:05 Urine Osmolality 531 mOsm/kg (500-800) 03/27/23 10:58 Ur Random Sodium 40 mmol/L 03/27/23 10:58 Impressions Shoulder X-Ray 03/26/23 16:03 XR shoulder RT min 2V routine CLINICAL HISTORY: fall, pain TECHNIQUE: 3 views of the right shoulder were obtained. Comparison: Comparison is made to right shoulder radiographs 03/24/2022 FINDINGS: There is a mildly comminuted fracture of the humeral shaft at the distal aspect of the humeral arthroplasty component. Right reverse shoulder arthroplasty is noted. The overlying soft tissues are unremarkable. The visualized portions of the lungs are clear. IMPRESSION: Comminuted periprosthetic fracture at the distal aspect of the humeral stem component. ACT 112: Negative or not required by law. Electronically signed by: Juan Carlos Velasquez M.D. 03/26/2023 4:57 PM Chest X-Ray 03/26/23 16:14 XR chest 1V portable CLINICAL HISTORY: weakness TECHNIQUE: Single frontal radiograph of the chest was obtained. Comparison: Comparison is made to chest radiograph 02/21/2023 FINDINGS: No lines and tubes are seen. Calcified aortic knob is seen. Reticular interstitial opacities are seen. No evidence of pleural effusion or pneumothorax. Right shoulder reverse arthroplasty is seen. Please see x-ray shoulder for findings of humeral fracture. IMPRESSION: Interstitial lung disease is seen. Please see x-ray shoulder for findings of humeral fracture. ACT 112: Negative or not required by law. Electronically signed by: Juan Carlos Velasquez M.D. 03/26/2023 4:56 PM
[2023-03-27 16:15] LABS: BUN Creatinine Ratio 17.3 (10-20); Calcium 8.6 mg/dl (8.6-10.3); Creatinine Clr Calc Pharmacy 41.2 ml/min; Est GFR (African American) 53.2 ml/min; Est GFR (Non-African American) 45.9 ml/min; Potassium 5.1 mmol/L (3.5-5.1)
--- NOTE | 2023-03-27 17:54 | Hospitalist Progress Note ---
Date of Service March 27, 2023 Assessment & Plan (1) Fall: Plan: Ryan So is a 83 year old male who p/w a fall at home after an episode of lightheadedness. He was found to have a fracture of his right humerus and was admitted for treatment of his fracture. Also noted to be hyponatremic. Presyncope/Dizziness -Hx of orthostatic hypotension, suspect this was etiology this episode. He does have NSVT on tele here and should continue on tele monitor -on chronic prednisone and also with hyponatremia--> perhaps some element of adrenal insufficiency contributing? Will give stress dose steroids -ECHO obtained which shows preserved EF, pulm HTN, but no significant valvular disease -EKG with Sinus Bradycardia with RBBB -Consideration could be made for discontinuing tamsulosin if remains orthostatic -check orthostatic vital signs prior to discharge (2) Periprosthetic fracture around internal prosthetic joint: Plan: R. Humerus Fracture -Shoulder XR: "comminuted periprosthetic fracture at the distal aspect of the humeral stem component." -Consult orthopedics, appreciate recommendations-plan for repeat TSA once medically stable, possibly tomorrow -Splint in place -Neurovascular checks q4h -Pain relief: morphine 1-2mg q4h (3) Hyponatremia: Plan: Na+ 126 on arrival, up to 127 this AM and back to 124 this afternoon after 2L NS Baseline sodium around 132-135, but has been decreasing since he started on carbamazepine earlier this year Neurology asked him to taper off of this and he is now down to 200 mg once daily Urine osmolality high at 530, urine sodium 40. TSH is normal at 4. He is on chronic prednisone with orthostasis as noted above, could have some element of relative adrenal insufficiency. Overall, euvolemic and suspect SIADH and fortunately, this is fairly asymptomatic -Start NaCl 1000 Mg p.o. twice daily -Fluid restrict 1200 mL of free water per day -Follow BMP this evening and again in the morning -Stop normal saline fluids -Continue Lasix every other day as per home dosing -Discontinue carbamazepine -Okay to continue escitalopram as he has been on this for a long time -Giving stress dose steroids (4) Anemia: Plan: Hemoglobin mildly low at 11.4 and stable from previous, normocytic With frequent leukocytosis but also on chronic steroids. Platelets are normal Peripheral smear from 6 months ago without any significant abnormalities-suspect anemia of chronic disease BCR/able and flow cytometry also normal/negative at that time Recent B12 normal, folate normal 7 months ago, no iron studies in 5 years -Check folate and iron studies in the morning (5) Frequent PVCs: Plan: With a 10 beat run of nonsustained ventricular tachycardia Check echo-preserved EF Continue Toprol-XL Continue telemetry monitoring (6) Hypothyroidism: Plan: TSH normal at 4.45 -Continue home dose of levothyroxine (7) GERD (gastroesophageal reflux disease): Plan: Continue home Pepcid and Protonix (8) Cardiomyopathy: Plan: With a history of previous reduced EF heart failure, EF now normalized Follows with cardiology Continue Toprol-XL. He cannot tolerate DONY inhibitor Repeat echocardiogram performed on 03/27 for nonsustained V. tach shows preserved EF and pulmonary hypertension Continue Lasix 20 Mg p.o. every other day (9) Interstitial lung disease: Plan: Not requiring oxygen With crackles at bases on exam Continue CellCept, prednisone with stress dose steroids right now Follows with pulmonology (10) Venous insufficiency: Plan: With history of venous ablation Continue Lasix every other day (11) BPH (benign prostatic hyperplasia): Plan: No acute issues Continue finasteride, tamsulosin Consider discontinuation of tamsulosin given intermittent dizziness with standing (12) Chronic kidney disease, stage III (moderate): Plan: Creatinine at baseline -Avoid nephrotoxins -renally dose meds when appropriate -follow BMP (13) Migraine: Plan: No improvement with carbamazepine-follows with neurology at [facility] Discontinuing carbamazepine for hyponatremia continue gabapentin (14) DMII (diabetes mellitus, type 2): Plan: Most recent hemoglobin A1c well controlled at 6.9% in 08/2022 Blood sugars well controlled here Continue basal and bolus insulin Check hemoglobin A1c in the morning (15) Anxiety: Plan: Continue Lexapro and Xanax as needed Plan DVT prophylaxis-SCDs Disposition -continued stay on medical floor with telemetry. Will need PT/OT consultations after shoulder surgery, daughter prefers [facility] Discussed care with daughter at the bedside Admission and Anticipated Discharge Date Admission Date: March 26, 2023 Subjective Having some pain in the right shoulder relieved with IV morphine. Ate lunch and then dinner and then c/o constipation later followed by nausea. No CP, SOB, headache, abd pain.No other injuries. He reports at home he reduced his lasix to every other day and has still been taking carbamazapine once a day but it has not helped his headaches at all and he would like to stop it. His prednisone dose was reduced to 5mg daily from 10mg daily about 2 months ago. He has reported intermittent lightheadedness and dizziness off and on for years, sometimes attributed to diuretic use. Tele with NSR, PVCs, and one 11 beat run of VT Physical Exam Constitutional: WD/WN, vitals as above Eyes: + anicteric sclerae Respiratory: normal respiratory effort; no cough Auscultation: + crackles (Fine at the bases); no rhonchi and no wheezes Cardiovascular: RRR, no murmur, no edema Gastrointestinal (Abdomen): normal bowel sounds, soft, nontender, no hepatosplenomegaly Musculoskeletal: Extremities: + extremities abnormal to inspection (RUE with splint in place upper/lower arm) Skin: Trauma: + evidence of skin trauma (left elbow and dorsal forearm with large skin tears) Neurologic: moves all extremities; no focal motor deficits and not confused Psychiatric: A+Ox3, euthymic affect Results & Data Results & Data Vital Signs (Past 12 Hours) Vital Signs Temp Pulse Pulse Resp BP Pulse Ox O2 Del Method 03/27/23 10:40 36.3 C L 69 18 116/67 95 Room Air 03/27/23 09:24 Room Air 03/27/23 07:33 36.7 C 68 20 131/70 94 Room Air 03/27/23 07:04 63 Laboratory Results CBC, BMP x 2, and TSH reviewed PG Care Time/CCT Total # of Minutes Spent Total Time Spent with Patient: Total time spent is greater than 50% in coordination of care (as documented) at patient's floor/unit and/or counseling patient: Coding Level of Care Code 99600 SUB INP/OBS CARE 3/50MIN Diagnoses Fall W19.XXXA Periprosthetic fracture around internal prosthetic joint M97.9XXA Hyponatremia E87.1 Anemia D64.9 Frequent PVCs I49.3 Hypothyroidism E03.9 GERD (gastroesophageal reflux disease) K21.9 Cardiomyopathy I42.9 Interstitial lung disease J84.9 Venous insufficiency I87.2 BPH (benign prostatic hyperplasia) N40.0 Lower urinary tract symptom presence: symptoms absent Chronic kidney disease, stage III (moderate) N18.30 Migraine G43.909 DMII (diabetes mellitus, type 2) E11.22; N18.31; Z79.4 Diabetes mellitus jail insulin use: with termite treater use Diabetes mellitus complication status: with kidney complications Diabetes mellitus complication detail: with chronic kidney disease Chronic kidney disease stage: stage 3 (moderate) Chronic kidney disease stage 3 subtype: stage 3a (GFR 45-59) Anxiety F41.9 (11) BPH (benign prostatic hyperplasia) Lower urinary tract symptom presence: symptoms absent Qualified Code(s): N40.0 - Benign prostatic hyperplasia without lower urinary tract symptoms (14) DMII (diabetes mellitus, type 2) Diabetes mellitus jail insulin use: with termite treater use Diabetes mellitus complication status: with kidney complications Diabetes mellitus complication detail: with chronic kidney disease Chronic kidney disease stage: stage 3 (moderate) Chronic kidney disease stage 3 subtype: stage 3a (GFR 45-59) Qualified Code(s): E11.22 - Type 2 diabetes mellitus with diabetic chronic kidney disease; N18.31 - Chronic kidney disease, stage 3a; Z79.4 - jail (current) use of insulin
[2023-03-27] MEDS: SODIUM CHLORIDE 1 GM TABLET PO SCH (18:20)
[2023-03-27] MEDS ORDERED: ONDANSETRON INJ 2 MG/ML 2 ML VIAL IV PRN (19:04)
[2023-03-27] MEDS: dexAMETHasone 6 MG in SYRINGE 0 ML IV SCH (20:53)
[2023-03-27] MEDS: SENNA 8.6 MG TAB PO SCH (20:55)
[2023-03-27] MEDS ORDERED: predniSONE 20 MG TAB PO SCH (21:00)
[2023-03-27 23:24] LABS: BUN Creatinine Ratio 20.9 (10-20); Calcium 8.3 mg/dl (8.6-10.3); Creatinine Clr Calc Pharmacy 36.2 ml/min; Est GFR (African American) 45.6 ml/min; Est GFR (Non-African American) 39.3 ml/min; Potassium 4.9 mmol/L (3.5-5.1)
[2023-03-28] MEDS: LEVOTHYROXINE SODIUM 50 MCG TABLET PO SCH (05:29)
[2023-03-28] MEDS: MoRPHine SULFATE 2 MG/ML CARP IV PRN (07:37)
[2023-03-28] MEDS: INSULIN ASPART PER UNIT CHARGE SC SCH ×4 (07:55→20:52)
[2023-03-28] MEDS ORDERED: bisacodyL 10 MG SUPP PR PRN ×2 (08:39→17:52)
[2023-03-28 08:40] LABS: Estimated Average Glucose 157 mg/dl; Hemoglobin A1C 7.1 % (4.5-5.6)
[2023-03-28 08:46] LABS: Basophils # (auto) 0.05 K/uL (0-0.2); Basophils % (auto) 0.4 %; Eosinophils # (auto) 0.07 K/uL (0-0.50); Eosinophils % (auto) 0.6 %; Hematocrit (blood only) 30.4 % (42.0-52.0); Hemoglobin 10.6 g/dl (14.0-18.0); Immature Granulocytes % (auto) 0.9 %; Lymphocytes # (auto) 0.81 K/uL (1.2-3.4); Mean Corpuscular Hemoglobin 30.9 pg (25.0-34.0); Mean Corpuscular Hgb Conc 34.9 g/dL (32.0-36.0); Mean Corpuscular Volume 88.6 fL (80.0-100.0); Mean Platelet Volume 9.2 fL (9.4-12.4); Monocytes # (auto) 0.94 K/uL (0.11-0.59); Monocytes % (auto) 8.1 %; Neutrophils # (auto) 9.65 K/uL (1.40-6.50); Platelet Count 300 K/uL (130-400); RDW Coefficient of Variation 12.8 % (11.5-14.5); Red Blood Count 3.43 M/uL (4.70-6.10); White Blood Count 11.62 K/ul (4.8-10.8)
[2023-03-28 08:55] LABS: BUN Creatinine Ratio 21.9 (10-20); Calcium 9.1 mg/dl (8.6-10.3); Creatinine Clr Calc Pharmacy 41.6 ml/min; Est GFR (African American) 54.1 ml/min; Est GFR (Non-African American) 46.7 ml/min; Potassium 4.9 mmol/L (3.5-5.1)
[2023-03-28] MEDS ORDERED: carBAMazepine 200 MG TABLET PO SCH (09:00)
[2023-03-28 09:15] LABS: Ferritin 164.6 ng/ml (8-388)
[2023-03-28] MEDS: dexAMETHasone 6 MG in SYRINGE 0 ML IV SCH (09:25)
[2023-03-28] MEDS: FUROSEMIDE 20 MG TAB PO SCH (09:25)
[2023-03-28] MEDS: SODIUM CHLORIDE 1 GM TABLET PO SCH ×2 (09:26→20:56)
[2023-03-28] MEDS: ESCITALOPRAM OXALATE 10 MG TAB PO SCH (09:27)
[2023-03-28] MEDS: GABAPENTIN 300 MG CAP PO SCH ×3 (09:27→20:55)
[2023-03-28] MEDS: PANTOprazole 40 MG TAB PO SCH (09:27)
[2023-03-28] MEDS: TAMSULOSIN HCL 0.4 MG CAP PO SCH (09:28)
[2023-03-28] MEDS: allopurinoL 100 MG TAB PO SCH (09:28)
[2023-03-28] MEDS: MYCOPHENOLATE MOFETIL 250 MG CAP PO SCH ×2 (09:28→20:56)
[2023-03-28] MEDS: LANTUS PER UNIT CHARGE SQ SCH ×2 (09:33→20:52)
--- NOTE | 2023-03-28 11:08 | Hospitalist Progress Note ---
Date of Service March 28, 2023 Assessment & Plan (1) Fall: Plan: Ryan So is a 83 year old male who p/w a fall at home after an episode of lightheadedness. He was found to have a fracture of his right humerus and was admitted for treatment of his fracture. Also noted to be hyponatremic. Presyncope/Dizziness -Hx of orthostatic hypotension, suspect this was etiology this episode. He does have NSVT on tele here and should continue on tele monitor-no further episodes since 03/27 -on chronic prednisone and also with hyponatremia--> perhaps some element of adrenal insufficiency contributing? Giving stress dose steroids -ECHO obtained which shows preserved EF, pulm HTN, but no significant valvular disease -EKG with Sinus Bradycardia with RBBB -Consideration could be made for discontinuing tamsulosin if remains orthostatic -check orthostatic vital signs after surgery/tomorrow -PT/OT consults needed and will likely need rehab (2) Periprosthetic fracture around internal prosthetic joint: Plan: R. Humerus Fracture -Shoulder XR: "comminuted periprosthetic fracture at the distal aspect of the humeral stem component." -Consult orthopedics, appreciate recommendations-now s/p repeat TSA on 03/28 -Pain relief: morphine 1-2mg q4h -post op care as per Ortho (3) Hyponatremia: Plan: Na+ 126 on arrival, up to 127 and then back to 124 after 2L NS on admission Baseline sodium around 132-135, but has been decreasing since he started on carbamazepine earlier this year Neurology asked him to taper off of this and he is now down to 200 mg once daily Urine osmolality high at 530, urine sodium 40. TSH is normal at 4. He is on chronic prednisone with orthostasis as noted above, could have some element of relative adrenal insufficiency. Overall, euvolemic and suspect SIADH and fortunately, this is fairly asymptomatic -Started NaCl 1000 Mg p.o. twice daily -Fluid restrict 1200 mL of free water per day -Na+ now up to 129 -Continue Lasix every other day as per home dosing -Discontinued carbamazepine -Okay to continue escitalopram as he has been on this for a long time -Giving stress dose steroids -follow BMP (4) Anemia: Plan: Hemoglobin mildly low at 11.4 and stable from previous, normocytic--> now down to 10.4 with some bruising around fracture site, some blood loss anemia With frequent leukocytosis but also on chronic steroids. Platelets are normal Peripheral smear from 6 months ago without any significant abnormalities-suspect anemia of chronic disease BCR/able and flow cytometry also normal/negative at that time Recent B12 normal, folate normal here now and iron studies normal here (5) Frequent PVCs: Plan: With a 10 beat run of nonsustained ventricular tachycardia on 03/27, none since then Checked echo-preserved EF Continue Toprol-XL Continue telemetry monitoring (6) Hypothyroidism: Plan: TSH normal at 4.45 -Continue home dose of levothyroxine (7) GERD (gastroesophageal reflux disease): Plan: Continue home Pepcid and Protonix (8) Cardiomyopathy: Plan: With a history of previous reduced EF heart failure, EF now normalized Follows with cardiology Continue Toprol-XL. He cannot tolerate DONY inhibitor Repeat echocardiogram performed on 03/27 for nonsustained V. tach shows preserved EF and pulmonary hypertension Continue Lasix 20 Mg p.o. every other day (9) Interstitial lung disease: Plan: Not requiring oxygen With crackles at bases on exam Continue CellCept, prednisone with stress dose steroids right now Follows with pulmonology (10) Venous insufficiency: Plan: With history of venous ablation Continue Lasix every other day (11) BPH (benign prostatic hyperplasia): Plan: No acute issues Continue finasteride, tamsulosin Consider discontinuation of tamsulosin given intermittent dizziness with stand ing (12) Chronic kidney disease, stage III (moderate): Plan: Creatinine at baseline except did go up slightly to 1.5, now back down to 1.3 -Avoid nephrotoxins -renally dose meds when appropriate -follow BMP (13) Migraine: Plan: No improvement with carbamazepine-follows with neurology at [facility] Discontinuing carbamazepine for hyponatremia continue gabapentin (14) DMII (diabetes mellitus, type 2): Plan: hemoglobin A1c well controlled at 7.1% Blood sugars well controlled here Continue basal and bolus insulin (15) Anxiety: Plan: Continue Lexapro and Xanax as needed Plan DVT prophylaxis-SCDs, defer to Ortho but suspect will need ASA bid or Xarelto Disposition -continued stay on medical floor with telemetry. Will need PT/OT consultations after shoulder surgery, daughter prefers [facility] rehab Admission and Anticipated Discharge Date Admission Date: March 26, 2023 Subjective Pt having pain in shoulder but improved with IV morphine Denies CP, SOB, nausea. Still no BM but is used ot going daily, last BM 03/26 Tele with NSR, rates 60s Physical Exam Constitutional: WD/WN, vitals as above Eyes: + anicteric sclerae Respiratory: normal respiratory effort; no cough Auscultation: + crackles (Fine at the bases); no rhonchi and no wheezes Cardiovascular: RRR, no murmur, no edema Gastrointestinal (Abdomen): normal bowel sounds, soft, nontender, no hepatosplenomegaly Musculoskeletal: Extremities: + extremities abnormal to inspection (RUE with splint in place upper/lower arm) Skin: Trauma: + evidence of skin trauma (left elbow and dorsal forearm with large skin tears) Neurologic: moves all extremities; no focal motor deficits and not confused Psychiatric: A+Ox3, euthymic affect Results & Data Results & Data Vital Signs (Past 12 Hours) Vital Signs Temp Pulse Pulse Resp BP Pulse Ox O2 Del Method 03/28/23 11:02 36.7 C 64 18 124/63 92 Room Air 03/28/23 10:48 62 03/28/23 07:00 63 03/28/23 08:09 36.8 C 114 H 20 159/79 H 91 Room Air 03/28/23 04:08 36.5 C 67 18 127/59 L 92 Room Air 03/28/23 00:00 68 03/27/23 23:48 36.8 C 72 20 158/80 H 94 Room Air Laboratory Results CBC, BMP reviewed PG Care Time/CCT Total # of Minutes Spent Total Time Spent with Patient: Total time spent is greater than 50% in coordination of care (as documented) at patient's floor/unit and/or counseling patient: Coding Level of Care Code 91083 SUB INP/OBS CARE 3/50MIN Diagnoses Fall W19.XXXA Periprosthetic fracture around internal prosthetic joint M97.9XXA Hyponatremia E87.1 Anemia D64.9 Frequent PVCs I49.3 Hypothyroidism E03.9 GERD (gastroesophageal reflux disease) K21.9 Cardiomyopathy I42.9 Interstitial lung disease J84.9 Venous insufficiency I87.2 BPH (benign prostatic hyperplasia) N40.0 Lower urinary tract symptom presence: symptoms absent Chronic kidney disease, stage III (moderate) N18.30 Migraine G43.909 DMII (diabetes mellitus, type 2) E11.22; N18.31; Z79.4 Chronic kidney disease stage: stage 3 (moderate) Chronic kidney disease stage 3 subtype: stage 3a (GFR 45-59) Diabetes mellitus complication detail: with chronic kidney disease Diabetes mellitus complication status: with kidney complications 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 insulin use: with alf use Anxiety F41.9 (11) BPH (benign prostatic hyperplasia) Lower urinary tract symptom presence: symptoms absent Qualified Code(s): N40.0 - Benign prostatic hyperplasia without lower urinary tract symptoms (14) DMII (diabetes mellitus, type 2) Chronic kidney disease stage: stage 3 (moderate) Chronic kidney disease stage 3 subtype: stage 3a (GFR 45-59) Diabetes mellitus complication detail: with chronic kidney disease Diabetes mellitus complication status: with kidney complications Diabetes mellitus alf insulin use: with alf use Qualified Code(s): E11.22 - Type 2 diabetes mellitus with diabetic chronic kidney disease; N18.31 - Chronic kidney disease, stage 3a; Z79.4 - retirement (current) use of insulin
[2023-03-28] MEDS ORDERED: ONDANSETRON INJ 2 MG/ML 2 ML VIAL ONE (12:37)
[2023-03-28] MEDS ORDERED: fentaNYL citrate PF 100 MCG/2 ML VIAL ONE (12:37)
[2023-03-28] MEDS ORDERED: DEXAMETHASONE SOD INJ 4 MG/ML VIAL ONE (12:37)
[2023-03-28] MEDS ORDERED: ROCURONIUM BROMIDE 10 MG/ML 5 ML VIAL IV ONE (12:37)
[2023-03-28] MEDS ORDERED: LIDOCAINE 2% 2 ML VIAL/AMP(20MG/ML) INFIL ONE (12:37)
[2023-03-28] MEDS ORDERED: PROPOFOL IV EMULSION 10 MG/ML 20 ML VIAL IV ONE (12:37)
[2023-03-28] MEDS ORDERED: ROPIVACAINE 0.5% 5 MG/ML 30 ML VIAL ONE (12:38)
[2023-03-28] MEDS ORDERED: ceFAZolin 2000MG 2,000 MG/15 ML SYR IV ONE (12:39)
[2023-03-28] MEDS ORDERED: ceFAZolin 2,000 MG/15 ML IV PUSH IV ONE (12:41)
--- NOTE | 2023-03-28 12:43 | Anesthesiology Consultation ---
Date of Service March 28, 2023 Assessment & Plan (1) Encounter for pre-operative examination: Chart Review Chart Review: Acceptable Risk for Surgery and Patient NOT seen in Pre Admission Testing Consults Requested none History Surgery Operation Date: 03/28/23 12:00 Proposed Procedures p Open Reduction Internal Fixation Right Kaleigh Prosthetic Humerus Fracture - Thomas Johnson MD Height/Weight Height: 5 ft 8 in Weight: 84.1 kg Allergies Allergy/AdvReac Type Severity Reaction Status Date / Time Sulfa (Sulfonamide Allergy Severe RASH, Verified 03/26/23 21:14 Antibiotics) HIVES, SWOLLEN MOUTH, THROAT SWELLING lisinopril Allergy Intermediate lethargic Verified 03/26/23 21:14 Penicillins Allergy Intermediate RASH, HIVES Verified 03/26/23 21:14 Medications Home Medications Medication Instructions Recorded Confirmed Last Taken famotidine 40 mg tablet (Pepcid) 40 mg PO HS 11/02/20 03/26/23 03/25/23 insulin degludec 100 unit/mL (3 10 unit subcut QAM 01/31/21 03/26/23 03/26/23 mL) subcutaneous pen (Tresiba FlexTouch U-100 insulin) insulin lispro 100 unit/mL 6 unit subcut QPM 01/31/21 03/26/23 03/25/23 subcutaneous solution (Humalog U-100 Insulin) metoprolol succinate 25 mg 25 mg PO QPM 02/28/22 03/26/23 03/25/23 tablet,extended release 24 hr pen needle, diabetic 32 gauge x #100 ea 12/21/22 02/13/23 Unknown 532" (BD Ultra-Fine Vale Pen Needle) gabapentin 300 mg capsule 300 mg PO TID #90 caps 01/31/23 03/26/23 03/26/23 12:00 mycophenolate mofetil 250 mg 250 mg PO BID #120 caps 01/31/23 03/26/23 03/26/23 08:00 capsule (CellCept) blood-glucose meter,continuous #1 ea 02/13/23 02/13/23 Unknown (Dexcom G7 Hard Metals Hand Engraver) blood-glucose sensor (Dexcom G7 #1 ea 02/13/23 02/13/23 Unknown Sensor device) omeprazole 40 mg capsule,delayed 40 mg PO DAILY 02/13/23 03/26/23 03/26/23 release guaifenesin 600 mg tablet, 600 mg PO Q12H PRN congestion #30 02/20/23 03/26/23 Unknown extended release 12 hr (Mucinex) tabs prednisone 5 mg tablet 5 mg PO QPM #60 tabs 03/05/23 03/26/23 03/25/23 allopurinol 100 mg tablet 100 mg PO DAILY #90 tabs 03/23/23 03/26/23 03/26/23 alprazolam 0.5 mg tablet (Xanax) 0.25 mg PO PM #15 tabs 03/23/23 03/26/23 03/25/23 escitalopram oxalate 10 mg tablet 10 mg PO QAM #90 tabs 03/23/23 03/26/23 (Lexapro) levothyroxine 50 mcg capsule 50 mcg PO QAM #90 caps 03/23/23 03/26/23 03/26/23 finasteride 5 mg tablet (Proscar) 5 mg PO QPM 03/26/23 03/26/23 03/25/23 carbamazepine 200 mg tablet 200 mg PO QAM 03/27/23 03/27/23 Unknown furosemide 20 mg tablet 20 mg PO Q2D 03/27/23 03/27/23 Unknown Active Medications Generic Name Dose Route Start Last Admin Trade Name Tundeq PRN Reason Stop Dose Admin Allopurinol 100 mg 03/27/23 09:00 03/28/23 09:28 Allopurinol 100 Mg Tab PO 04/26/23 08:59 100 mg DAILY JUAN A Administration Alprazolam 0.25 mg 03/26/23 23:18 03/27/23 21:00 Alprazolam 0.5 Mg Tablet PO 04/25/23 23:17 0.25 mg PM JUAN A Administration Escitalopram Oxalate 10 mg 03/27/23 09:00 03/28/23 09:27 Escitalopram Oxalate 10 Mg Tab PO 04/26/23 08:59 10 mg QAM JUAN A Administration Famotidine 40 mg 03/26/23 23:18 03/27/23 20:56 Famotidine 40 Mg Tablet PO 04/25/23 23:17 40 mg HS JUAN A Administration Finasteride 5 mg 03/26/23 23:18 03/27/23 20:56 Finasteride 5 Mg Tab PO 04/25/23 23:17 5 mg HS JUAN A Administration Furosemide 20 mg 03/28/23 09:00 03/28/23 09:25 Furosemide 20 Mg Tab PO 04/27/23 08:59 20 mg Q2D JUAN A Administration Gabapentin 300 mg 03/26/23 23:18 03/28/23 09:27 Gabapentin 300 Mg Cap PO 04/25/23 23:17 300 mg TID JUAN A Administration Dexamethasone 6 mg/ Syringe 1.5 mls @ 1 mls/min 03/27/23 19:30 03/28/23 09:25 IV 04/26/23 19:29 1 mls/min QAM JUAN A Administration Insulin Aspart 0 units 03/26/23 21:00 03/28/23 12:10 Insulin Aspart Per Unit Charge SC 04/25/23 20:59 Not Given ACHS JUAN A Insulin Glargine 3 units 03/26/23 21:00 03/28/23 09:33 Lantus Per Unit Charge SQ 04/25/23 20:59 3 units BID JUAN A Administration Levothyroxine Sodium 50 mcg 03/27/23 06:30 03/28/23 05:29 Levothyroxine Sodium 50 Mcg Tablet PO 04/26/23 06:29 50 mcg DAILYBB JUAN A Administration Metoprolol Succinate 25 mg 03/26/23 23:18 03/27/23 20:57 Metoprolol Succ 25mg Ext Rel Tab PO 04/25/23 23:17 25 mg QPM JUAN A Administration Morphine Sulfate 1 - 2 mg 03/26/23 23:18 03/28/23 07:37 Morphine Sulfate 2 Mg/Ml Carp IV 04/09/23 23:17 2 mg Q4H PRN Administration Moderate to Severe Pain 4-10 Mycophenolate Mofetil 250 mg 03/26/23 23:18 03/28/23 09:28 Mycophenolate Mofetil 250 Mg Cap PO 04/25/23 23:17 250 mg BID JUAN A Administration Ondansetron HCl 4 mg 03/27/23 19:04 03/27/23 19:12 Ondansetron Inj 2 Mg/Ml 2 Ml Vial IV 04/26/23 19:03 4 mg Q6H PRN Administration Nausea And Vomiting Pantoprazole Sodium 40 mg 03/27/23 09:00 03/28/23 09:27 Pantoprazole 40 Mg Tab PO 04/26/23 08:59 40 mg DAILY JUAN A Administration Sennosides 17.2 mg 03/27/23 21:00 03/27/23 20:55 Senna 8.6 Mg Tab PO 04/26/23 20:59 17.2 mg HS JUAN A Administration Sodium Chloride 1 gm 03/27/23 18:00 03/28/23 09:26 Sodium Chloride 1 Gm Tablet PO 04/26/23 17:59 1 gm BID JUAN A Administration Tamsulosin HCl 0.4 mg 03/27/23 09:00 03/28/23 09:28 Tamsulosin Hcl 0.4 Mg Cap PO 04/26/23 08:59 0.4 mg DAILY JUAN A Administration NPO Date Last Intake of Fluids: 03/27/23 Time Last Intake of Fluids: 21:00 Date Last Intake of Solids: 03/27/23 Time Last Intake of Solids: 17:00 Past Medical History Medical History Accelerated idioventricular rhythm Asymptomatic. Beta-juanjose has been initiated since Holter monitor per cardio records Anxiety Aortic stenosis Mild AV stenosis on 10/15/20 ECHO "AV opens well" on 05/11/21 ECHO -Per 08/2021 cardio note- noted in 2019 - no significant stenosis on most recent ECHO- known sclerotic AV- "no significant stenosis" Cardiomyopathy LV systolic function has normalized. Etiology of CM unknown. Cervical spondylosis Cough DMII (diabetes mellitus, type 2) Frequent PVCs FOLLOWED BY DR. WESLEY GERD (gastroesophageal reflux disease) Relatively controlled with medication (improved from previous) Hx of esophageal ulcer Hx of gout Controlled with Allopurinol Hx of melanoma of skin RT EAR Hyperlipidemia Hypothyroidism Interstitial lung disease "HAS NOT USED INHALER FOR A LONG TIME" Breathing stable at rest- mild FONTANEZ with long walks (chronic and unchanged) Low iron Anemia stable per patient Schatzki's ring No dysphagia Venous insufficiency Past Family History Family History Father Family history of diabetes mellitus Coronary heart disease Prostate cancer Myocardial infarction Uncle Coronary heart disease Sister Breast cancer Other No family history of adverse response to anesthesia Denies family history of Ovarian cancer Colorectal cancer Past Surgical History Surgical History H/O foot surgery RT FOOT 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 History of cardiac cath no stents>YEARS AGO AT [facility] History of colonoscopy History of esophagogastroduodenoscopy (EGD) with dilation History of tonsillectomy and adenoidectomy History of wisdom tooth extraction S/P dilatation of esophageal stricture Status post reverse total arthroplasty of right shoulder Social History Smoking Status: Never smoker tobacco type: smokeless tobacco Do You Dip or Chew Tobacco: No Hx Alcohol Use: No Hx Substance Use: No substance use type: does not use Physical Exam Vital Signs Last Vital Signs Temp 98.4 F 03/28/23 12:13 Pulse 65 03/28/23 12:13 Resp 20 03/28/23 12:13 BP 163/78 H 03/28/23 12:13 Pulse Ox 96 03/28/23 12:13 O2 Del Method Room Air 03/28/23 12:13 O2 Flow Rate 2 03/26/23 23:20 Testing Laboratory Results 03/28/23 08:20 03/28/23 08:20 Hemoglobin A1c 7.1 % (4.5-5.6) H 03/28/23 08:20 Blood Type O Positive 03/27/23 14:58 Antibody Screen NEGATIVE 03/27/23 14:58 03/28/23 03/28/23 03/28/23 12:02 11:44 07:53 POC Glucose 124 H 121 H 123 H
--- NOTE | 2023-03-28 12:53 | History & Physical Bridge Note ---
Date of Service March 28, 2023 History & Physical Bridge Note I have examined the patient, reviewed the History & Physical and in the interval since the performance of the History & Physical I have noted the following changes of clinical significance: no changes noted
[2023-03-28] MEDS ORDERED: ePHEDrine sulfate 50 MG/ML SYR ONE (14:05)
[2023-03-28] MEDS ORDERED: GLYCOPYRROLATE 0.2 MG/ML VIAL ONE ×2 (14:05→16:40)
[2023-03-28] MEDS ORDERED: PHENYLEPHRINE 100MCG/ML 5ML SYR ONE (14:05)
[2023-03-28] MEDS ORDERED: TRANEXAMIC ACID 1,000 MG **IV Intra-op IV ONE (14:30)
[2023-03-28] MEDS ORDERED: TRANEXAMIC ACID / 0.7% NACL 1000MG/100ML BAG IV ONE (14:30)
[2023-03-28] MEDS ORDERED: NEOSTIGMINE METHYLSULFATE 1 MG/ML 10ML VIAL ONE (16:40)
--- NOTE | 2023-03-28 16:47 | Post Operative Brief Note ---
Immediate Post Op Note v1 Date of Surgery March 28, 2023 Pre & Post Diagnosis Operation Date: 03/28/23 12:00 Pre-Op Diagnosis: Right periprosthetic fracture of the proximal humerus status post reverse total shoulder replacement and biceps tenodesis Post-Op Diagnosis: Right periprosthetic fracture of the proximal humerus status post reverse total shoulder replacement and biceps tenodesis with elbow skin tear type lacerations I identified the patient and participated in the time-out.: Yes Procedure Operation Date: 03/28/23 12:00 Actual Procedures p Open Reduction Internal Fixation Right Kaleigh Prosthetic Humerus Fracture(Right) with proximal humerus long locking plate with proximal cerclage wire fixation- irrigation and dressing change elbow skin lacerations Thomas Johnson MD Surgeon Thomas Johnson MD Italian Tutor Gato CUETO Estimated Blood Loss 150 Findings Consistent with Post-Op Diagnosis Specimens None Drains Maier Catheter (16 latvian latex free) Anesthesia Type General Regional Complications none Disposition Disposition: Recovery Room Overlapping Procedure I was immediately available: during the entire case.
--- NOTE | 2023-03-28 17:22 | Anesthesiology Progress Note ---
Date of Service March 28, 2023 Anesthesia Post Procedure Vital Signs Vital Signs: Temp Pulse Pulse Resp BP Pulse Ox O2 Del Method 03/28/23 17:10 70 15 148/72 H 95 Oxymask 03/28/23 17:00 75 17 163/77 H 100 Oxymask 03/28/23 16:53 36.2 C L 84 18 154/78 H 99 Oxymask 03/28/23 12:13 36.9 C 65 20 163/78 H 96 Room Air 03/28/23 11:02 36.7 C 64 18 124/63 92 Room Air 03/28/23 10:48 62 03/28/23 07:00 63 03/28/23 08:09 36.8 C 114 H 20 159/79 H 91 Room Air 03/28/23 04:08 36.5 C 67 18 127/59 L 92 Room Air 03/28/23 00:00 68 03/27/23 23:48 36.8 C 72 20 158/80 H 94 Room Air 03/27/23 19:09 67 116/66 O2 Flow Rate 03/28/23 17:10 4 03/28/23 17:00 10 03/28/23 16:53 10 03/28/23 12:13 03/28/23 11:02 03/28/23 10:48 03/28/23 07:00 03/28/23 08:09 03/28/23 04:08 03/28/23 00:00 03/27/23 23:48 03/27/23 19:09 Pain Intensity Right Shoulder: Pain Intensity: 2 Transfer of Care Handoff Completed per policy Notes Mental Status: alert / awake / arousable Patient Amnestic to Procedure: Yes Nausea / Vomiting: adequately controlled Pain: adequately controlled Airway Patency, RR, SpO2: stable & adequate BP & HR: stable & adequate Hydration State: stable & adequate Anesthetic Complications: no major complications apparent
[2023-03-28] MEDS ORDERED: MAGNESIUM HYDROXIDE SUSP 30 ML UDC PO PRN (17:52)
[2023-03-28] MEDS ORDERED: VANCOMYCIN CONSULT ACTIVE PRN (17:52)
[2023-03-28] MEDS ORDERED: METOCLOPRAMIDE HCL INJ 5 MG/ML 2 ML VIAL IV PRN (17:52)
[2023-03-28] MEDS ORDERED: ONDANSETRON INJ 2 MG/ML 2 ML VIAL IV PRN (17:52)
[2023-03-28] MEDS ORDERED: NALOXONE HCL 0.4 MG/1 ML VIAL/CARP IV PRN (17:52)
[2023-03-28] MEDS: SODIUM CHLORIDE 0.9% 1000ML 1,000 ML IV SCH (18:45)
[2023-03-28 18:47] LABS: BUN Creatinine Ratio 21.2 (10-20); Calcium 8.9 mg/dl (8.6-10.3); Creatinine Clr Calc Pharmacy 43.2 ml/min; Est GFR (African American) 56.6 ml/min; Est GFR (Non-African American) 48.8 ml/min; Potassium 4.6 mmol/L (3.5-5.1)
[2023-03-28] MEDS: ALPRAZolam 0.5 MG TABLET PO SCH (20:53)
[2023-03-28] MEDS: ceFAZolin 2000MG 2,000 MG/15 ML SYR IV SCH (20:54)
[2023-03-28] MEDS: DOCUSATE SODIUM 100 MG CAP PO SCH (20:54)
[2023-03-28] MEDS: FAMOTIDINE 40 MG TABLET PO SCH (20:55)
[2023-03-28] MEDS: FINASTERIDE 5 MG TAB PO SCH (20:55)
[2023-03-28] MEDS: METOPROLOL SUCC 25MG EXT REL TAB PO SCH (20:56)
[2023-03-28] MEDS: SENNA 8.6 MG TAB PO SCH (20:56)
[2023-03-28] MEDS ORDERED: SENNA 8.6 MG TAB PO SCH (21:00)
--- NOTE | 2023-03-29 00:59 | Operative Report (OR) ---
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 He was doing fine until he fell 2 days ago and sustained bilateral elbow lacerations and periprosthetic humerus fracture. His radiographs demonstrate that there are some fractures around the prosthetic, but it does not appear to be grossly loosened at all and there is no dislocation. The glenoid component is intact. There is comminuted fracture at the tip of the stem extending just proximal to the tip of the stem. There is displacement of the fracture and unstable fracture pattern. 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 PROCEDURE PERFORMED: Open reduction and internal fixation, periprosthetic right humerus fracture with an 8-hole Synthes proximal humerus locking plate with proximal cerclage wire fixation and irrigation and dressing change elbow lacerations. SURGEON: Thomas Johnson MD FIGURE SKATER: NORY Landis. ANESTHESIA: Regional block, general. COMPLICATIONS: None. DRAINS: Maier catheter placed SPECIMENS: None. BLOOD LOSS: 150 mL. DISPOSITION: Recovery room. OPERATIVE PROCEDURE: The patient was taken to the operating room, anesthetized under general anesthesia. He had a Maier catheter placed. He was then positioned in the beach chair position on the operating room table with a towel around the medial border of right scapula. He was translated right side of the bed. His head was placed on a foam headrest, protective eyewear. Extremities were well padded. TEDs and SCDs placed. Splint was removed and he had about a 6 cm laceration and another smaller laceration over his elbow area below the operative site. Because of the lacerations, we chose to prep and drape the arm with a Betadine scrub brush followed by Betadine paint. The lacerations were draped off below the level of the surgical site. Exam of the arm demonstrated was grossly stable at the fracture site. There was ecchymosis and the skin was intact over the fracture site. It was an old healed scar from the reverse replacement. We used Ioban drape after the sterile prep. He had Ancef IV preop. After timeout performed, the anterior incision was made through the prior scar and this was extended down to the mid distal third of the humerus with long anterior approach. Skin was incised sharply. Subcutaneous flaps were elevated. The deltopectoral interval was developed down to the conjoined tendon which was identified and retracted medially. The subscapularis repair and posterior superior rotator cuff repair was all intact. Did some subperiosteal elevation of the greater tuberosity, which demonstrated an oblique transverse type fracture that was stable, but definitely fracture across the tuberosity there. Moved in unison with the proximal fragment and the humeral implant. Humeral implant appeared to be well fixed by inspection. The fracture was below the level of the deltoid attachment and the pectoralis attachment. After the deltopectoral interval was developed, some of the deltoid attachment was reflected off the lateral humeral shaft, so we could put a plate over the greater tuberosity. The pectoralis tendon was released off the fracture site as well, saving one lower portion of the pectoralis intact and some of the lower deltoid was maintained intact. The biceps fascia was then divided and the biceps was retracted medially, and the brachialis was split over the lower fragment exposing the lower fragment distally. The circumflex vessels were tied off and divided. The tip of the stem was just sticking out below the proximal fragment. The proximal fragments appeared to be well fixed to the stem though there appeared to be a butterfly fragment medially. The distal fragment was a solid humeral shaft fragment. Subperiosteal dissection was performed, elevating the brachialis off the anterolateral distal humeral shaft. I was able to kirby in the fractures together. Used C-arm fluoroscopy to verify the reduction to be anatomic. There was some comminution despite getting in to contact the bone. After irrigation, the Synthes 8-hole proximal humerus locking plate was laid across the humerus, adjusted to be in appropriate position, so we had 4 holes distal to the fracture site with 8 cortices. Then, 2 threaded pins were placed into the greater tuberosity to hold the level of the plate and then the distal fragment was lagged to the plate using a 3.5 mm cortical screw. Then, we assessed alignment again on fluoroscopy. Then went ahead and placed the 3 distal locking screws in the plate. Then, we went ahead proximally and was able to get unicortical fixation with 5 locking screws in the greater tuberosity area proximally. I then placed two cerclage wires in the area of the latissimus insertion where I used a Robles elevator to elevate the latissimus and teres major slightly off of the bone and then used the wire passer subperiosteally around the bone and then we used the screw and device into the plate for passing the wire through and placed two cerclage wires, tightened them to 30-pound pressure. Wires were cut and checked fluoroscopy and reduction was satisfactory. However, the wires did seem to be medial to some of the bone medially, which would imply that there was a split in the fracture and when we placed a suture passer around some of the butterfly fragment, it was likely pushed medially. Despite that, the fixation was solid with passive rotation and alignment was satisfactory. The wound was irrigated and then the brachialis was repaired with [id number] #1 Vicryl sutures. The deltopectoral interval was repaired with interrupted [id number] #1 Vicryl sutures. The subcutaneous tissue was closed with multiple 2-0 Vicryl sutures and the skin was closed with jam and Xeroform dressing. Sterile dressing with Op-Site was applied, and elbow lacerations were dressed with Xeroform, 4 x 4s, and Op-Site as well. The patient was placed into a sling immobilizer and the patient tolerated the procedure well without complication. NORY Landis was my assistant superintendent for curriculum. He functioned as the assistant superintendent for curriculum throughout the procedure. He assisted in patient positioning, prepping, draping, arm positioning, soft tissue retraction, instrument management, wound closure, dressings, and postoperative care. Job ID: [id number] [facility]
[2023-03-29] MEDS ORDERED: VANCOMYCIN HCL 1,250 MG in SODIUM CHLORIDE 0.9% 500 ML IV SCH (03:00)
[2023-03-29] MEDS: SODIUM CHLORIDE 0.9% 1000ML 1,000 ML IV SCH (03:54)
[2023-03-29] MEDS: oxyCODONE HCL IR 5 MG TAB (IMMEDIATE RELEASE) PO PRN ×3 (03:54→13:09)
[2023-03-29] MEDS: ceFAZolin 2000MG 2,000 MG/15 ML SYR IV SCH (03:54)
[2023-03-29] MEDS: MoRPHine SULFATE 2 MG/ML CARP IV PRN ×2 (05:12→10:53)
[2023-03-29] MEDS: LEVOTHYROXINE SODIUM 50 MCG TABLET PO SCH (05:56)
--- NOTE | 2023-03-29 07:00 | Orthopedic Progress Note ---
Date of Service March 29, 2023 Assessment & Plan (1) Periprosthetic fracture around internal prosthetic joint: Plan: POD#1 ORIF right periprosthetic humerus fracture -PT/OT no shoulder ROM. May do gentle elbow/wrist/hand motion. -Pain management as written -AM labs-hemoglobin 8.6 from 10.1 preop acute blood loss anemia due to surgical loss vs dilutional. Leukocytosis likely reactive. Patient is asymptomatic. due to surgical stress. Sodium closer to baseline at 132 this am. -DVT prophylaxis-SCDs, as per medicine -D/C planning-plan on discharge home vs SNF when stable Admission and Anticipated Discharge Date Admission Date: March 26, 2023 Subjective Patient is POD#1 ORIF right humerus fracture. He is complaining of moderate amount of pain to upper arm, otherwise no current complaints. Denies chest pain, sob, dizziness, headache, n/v/d. Review of Systems Review of Systems: All systems reviewed & are unremarkable except as noted in Subjective Physical Exam Physical Exam: Right upper arm dressing is c/d/i, sling in place. 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 Distally n/v status and sensation grossly intact. Constitutional: WD/WN, vitals as above Results & Data Vital Signs (Past 12 Hours) Vital Signs Temp Pulse Pulse Resp BP Pulse Ox O2 Del Method 03/29/23 04:00 36.5 C 67 18 146/74 H 99 Nasal Cannula 03/29/23 00:00 36.6 C 68 18 137/61 98 Nasal Cannula 03/28/23 23:58 63 03/28/23 23:58 Room Air 03/28/23 20:00 36.6 C 70 18 113/67 98 Nasal Cannula 03/28/23 19:11 72 O2 Flow Rate 03/29/23 04:00 2 03/29/23 00:00 2 03/28/23 23:58 03/28/23 23:58 03/28/23 20:00 2 03/28/23 19:11 Laboratory Results Lab Results 03/26/23 03/26/23 03/26/23 Range/Units 16:05 16:05 21:08 WBC 11.13 H (4.8-10.8) K/ul RBC 3.65 L (4.70-6.10) M/uL Hgb 11.2 L (14.0-18.0) g/dl Hct 32.3 L (42.0-52.0) % MCV 88.5 (80.0-100.0) fL MCH 30.7 (25.0-34.0) pg MCHC 34.7 (32.0-36.0) g/dL RDW Std Deviation 40.8 (36.4-46.3) fL RDW Coeff of Graham 12.5 (11.5-14.5) % Plt Count 312 (130-400) K/uL MPV 9.3 L (9.4-12.4) fL Immature Gran % (Auto) 1.3 % Neut % (Auto) 71.9 % Lymph % (Auto) 13.5 % [place] % (Auto) 9.7 % Eos % (Auto) 3.0 % Baso % (Auto) 0.6 % Neut # (Auto) 8.01 H (1.40-6.50) K/uL Lymph # (Auto) 1.50 (1.2-3.4) K/uL [place] # (Auto) 1.08 H (0.11-0.59) K/uL Eos # (Auto) 0.33 (0-0.50) K/uL Baso # (Auto) 0.07 (0-0.2) K/uL Immature Gran # (Auto) 0.14 (0.01-0.20) K/uL Sodium 126 L (136-145) mmol/L Potassium 4.1 (3.5-5.1) mmol/L Chloride 93 L (98-107) mmol/L Carbon Dioxide 26 (21-32) mmol/L Anion Gap 7 (3-11) BUN 28 H (6-23) mg/dl Creatinine 1.12 (0.6-1.4) mg/dl Est Cr Clr Drug Dosing 49.8 ml/min Est GFR ( Amer) 69.1 ml/min Est GFR (Non-Af Amer) 59.6 ml/min BUN/Creatinine Ratio 25.0 H (10-20) Glucose 112 H (70-99(Fasting)) mg/dl POC Glucose 113 H (70-99) mg/dl Estimat Average Glucose mg/dl Hemoglobin A1c (4.5-5.6) % Osmolality (280-300) mOsm/kg Calcium 8.8 (8.6-10.3) mg/dl Magnesium (1.7-2.4) mg/dl Iron (35-175) mcg/dl TIBC (250-450) mcg/dl Unsaturated IBC (155-355) mcg/dl Transferrin % Sat (20-50) % Ferritin (8-388) ng/ml Total Bilirubin 0.2 (0.2-1.0) mg/dl AST 16 (13-39) U/L ALT 13 (7-52) U/L Alkaline Phosphatase 94 (34-104) U/L Total Protein 6.1 (6.0-8.3) gm/dl Albumin 3.6 (3.4-5.0) gm/dl Globulin 2.5 (2.5-4.0) gm/dl Albumin/Globulin Ratio 1.4 (0.9-2) Folate (>5.38) ng/ml TSH (0.300-4.500) uIu/ml Urine Osmolality (500-800) mOsm/kg Ur Random Sodium mmol/L Blood Type Antibody Screen 03/27/23 03/27/23 03/27/23 Range/Units 06:05 06:05 06:05 WBC 10.81 H (4.8-10.8) K/ul RBC 3.66 L (4.70-6.10) M/uL Hgb 11.4 L (14.0-18.0) g/dl Hct 33.6 L (42.0-52.0) % MCV 91.8 (80.0-100.0) fL MCH 31.1 (25.0-34.0) pg MCHC 33.9 (32.0-36.0) g/dL RDW Std Deviation 43.2 (36.4-46.3) fL RDW Coeff of [place] 13.0 (11.5-14.5) % Plt Count 244 (130-400) K/uL MPV 10.9 (9.4-12.4) fL Immature Gran % (Auto) 0.9 % Neut % (Auto) 86.1 % Lymph % (Auto) 5.9 % [place] % (Auto) 6.0 % Eos % (Auto) 0.5 % Baso % (Auto) 0.6 % Neut # (Auto) 9.31 H (1.40-6.50) K/uL Lymph # (Auto) 0.64 L (1.2-3.4) K/uL [place] # (Auto) 0.65 H (0.11-0.59) K/uL Eos # (Auto) 0.05 (0-0.50) K/uL Baso # (Auto) 0.06 (0-0.2) K/uL Immature Gran # (Auto) 0.10 (0.01-0.20) K/uL Sodium 127 L (136-145) mmol/L Potassium 4.9 (3.5-5.1) mmol/L Chloride 94 L (98-107) mmol/L Carbon Dioxide 25 (21-32) mmol/L Anion Gap 8 (3-11) BUN 22 (6-23) mg/dl Creatinine 1.00 (0.6-1.4) mg/dl Est Cr Clr Drug Dosing 57.2 ml/min Est GFR ( Amer) 79.2 ml/min Est GFR (Non-Af Amer) 68.3 ml/min BUN/Creatinine Ratio 22.0 H (10-20) Glucose 119 H (70-99(Fasting)) mg/dl POC Glucose (70-99) mg/dl Estimat Average Glucose mg/dl Hemoglobin A1c (4.5-5.6) % Osmolality (280-300) mOsm/kg Calcium 9.1 (8.6-10.3) mg/dl Magnesium (1.7-2.4) mg/dl Iron (35-175) mcg/dl TIBC (250-450) mcg/dl Unsaturated IBC (155-355) mcg/dl Transferrin % Sat (20-50) % Ferritin (8-388) ng/ml Total Bilirubin (0.2-1.0) mg/dl AST (13-39) U/L ALT (7-52) U/L Alkaline Phosphatase (34-104) U/L Total Protein (6.0-8.3) gm/dl Albumin (3.4-5.0) gm/dl Globulin (2.5-4.0) gm/dl Albumin/Globulin Ratio (0.9-2) Folate (>5.38) ng/ml TSH 4.450 (0.300-4.500) uIu/ml Urine Osmolality (500-800) mOsm/kg Ur Random Sodium mmol/L Blood Type Antibody Screen 03/27/23 03/27/23 03/27/23 Range/Units 06:05 08:53 10:58 WBC (4.8-10.8) K/ul RBC (4.70-6.10) M/uL Hgb (14.0-18.0) g/dl Hct (42.0-52.0) % MCV (80.0-100.0) fL MCH (25.0-34.0) pg MCHC (32.0-36.0) g/dL RDW Std Deviation (36.4-46.3) fL RDW Coeff of [place] (11.5-14.5) % Plt Count (130-400) K/uL MPV (9.4-12.4) fL Immature Gran % (Auto) % Neut % (Auto) % Lymph % (Auto) % [place] % (Auto) % Eos % (Auto) % Baso % (Auto) % Neut # (Auto) (1.40-6.50) K/uL Lymph # (Auto) (1.2-3.4) K/uL [place] # (Auto) (0.11-0.59) K/uL Eos # (Auto) (0-0.50) K/uL Baso # (Auto) (0-0.2) K/uL Immature Gran # (Auto) (0.01-0.20) K/uL Sodium (136-145) mmol/L Potassium (3.5-5.1) mmol/L Chloride (98-107) mmol/L Carbon Dioxide (21-32) mmol/L Anion Gap (3-11) BUN (6-23) mg/dl Creatinine (0.6-1.4) mg/dl Est Cr Clr Drug Dosing ml/min Est GFR ( Amer) ml/min Est GFR (Non-Af Amer) ml/min BUN/Creatinine Ratio (10-20) Glucose (70-99(Fasting)) mg/dl POC Glucose 118 H (70-99) mg/dl Estimat Average Glucose mg/dl Hemoglobin A1c (4.5-5.6) % Osmolality 280 (280-300) mOsm/kg Calcium (8.6-10.3) mg/dl Magnesium (1.7-2.4) mg/dl Iron (35-175) mcg/dl TIBC (250-450) mcg/dl Unsaturated IBC (155-355) mcg/dl Transferrin % Sat (20-50) % Ferritin (8-388) ng/ml Total Bilirubin (0.2-1.0) mg/dl AST (13-39) U/L ALT (7-52) U/L Alkaline Phosphatase (34-104) U/L Total Protein (6.0-8.3) gm/dl Albumin (3.4-5.0) gm/dl Globulin (2.5-4.0) gm/dl Albumin/Globulin Ratio (0.9-2) Folate (>5.38) ng/ml TSH (0.300-4.500) uIu/ml Urine Osmolality (500-800) mOsm/kg Ur Random Sodium 40 mmol/L Blood Type Antibody Screen 03/27/23 03/27/23 03/27/23 Range/Units 10:58 12:18 14:58 WBC (4.8-10.8) K/ul RBC (4.70-6.10) M/uL Hgb (14.0-18.0) g/dl Hct (42.0-52.0) % MCV (80.0-100.0) fL MCH (25.0-34.0) pg MCHC (32.0-36.0) g/dL RDW Std Deviation (36.4-46.3) fL RDW Coeff of [place] (11.5-14.5) % Plt Count (130-400) K/uL MPV (9.4-12.4) fL Immature Gran % (Auto) % Neut % (Auto) % Lymph % (Auto) % [place] % (Auto) % Eos % (Auto) % Baso % (Auto) % Neut # (Auto) (1.40-6.50) K/uL Lymph # (Auto) (1.2-3.4) K/uL [place] # (Auto) (0.11-0.59) K/uL Eos # (Auto) (0-0.50) K/uL Baso # (Auto) (0-0.2) K/uL Immature Gran # (Auto) (0.01-0.20) K/uL Sodium 124 L (136-145) mmol/L Potassium 5.1 (3.5-5.1) mmol/L Chloride 95 L (98-107) mmol/L Carbon Dioxide 22 (21-32) mmol/L Anion Gap 7 (3-11) BUN 24 H (6-23) mg/dl Creatinine 1.39 D (0.6-1.4) mg/dl Est Cr Clr Drug Dosing 41.2 ml/min Est GFR ( Amer) 53.2 ml/min Est GFR (Non-Af Amer) 45.9 ml/min BUN/Creatinine Ratio 17.3 (10-20) Glucose 148 H (70-99(Fasting)) mg/dl POC Glucose 114 H (70-99) mg/dl Estimat Average Glucose mg/dl Hemoglobin A1c (4.5-5.6) % Osmolality (280-300) mOsm/kg Calcium 8.6 (8.6-10.3) mg/dl Magnesium (1.7-2.4) mg/dl Iron (35-175) mcg/dl TIBC (250-450) mcg/dl Unsaturated IBC (155-355) mcg/dl Transferrin % Sat (20-50) % Ferritin (8-388) ng/ml Total Bilirubin (0.2-1.0) mg/dl AST (13-39) U/L ALT (7-52) U/L Alkaline Phosphatase (34-104) U/L Total Protein (6.0-8.3) gm/dl Albumin (3.4-5.0) gm/dl Globulin (2.5-4.0) gm/dl Albumin/Globulin Ratio (0.9-2) Folate (>5.38) ng/ml TSH (0.300-4.500) uIu/ml Urine Osmolality 531 (500-800) mOsm/kg Ur Random Sodium mmol/L Blood Type Antibody Screen 03/27/23 03/27/23 03/27/23 Range/Units 14:58 16:37 20:12 WBC (4.8-10.8) K/ul RBC (4.70-6.10) M/uL Hgb (14.0-18.0) g/dl Hct (42.0-52.0) % MCV (80.0-100.0) fL MCH (25.0-34.0) pg MCHC (32.0-36.0) g/dL RDW Std Deviation (36.4-46.3) fL RDW Coeff of [place] (11.5-14.5) % Plt Count (130-400) K/uL MPV (9.4-12.4) fL Immature Gran % (Auto) % Neut % (Auto) % Lymph % (Auto) % [place] % (Auto) % Eos % (Auto) % Baso % (Auto) % Neut # (Auto) (1.40-6.50) K/uL Lymph # (Auto) (1.2-3.4) K/uL [place] # (Auto) (0.11-0.59) K/uL Eos # (Auto) (0-0.50) K/uL Baso # (Auto) (0-0.2) K/uL Immature Gran # (Auto) (0.01-0.20) K/uL Sodium (136-145) mmol/L Potassium (3.5-5.1) mmol/L Chloride (98-107) mmol/L Carbon Dioxide (21-32) mmol/L Anion Gap (3-11) BUN (6-23) mg/dl Creatinine (0.6-1.4) mg/dl Est Cr Clr Drug Dosing ml/min Est GFR ( Amer) ml/min Est GFR (Non-Af Amer) ml/min BUN/Creatinine Ratio (10-20) Glucose (70-99(Fasting)) mg/dl POC Glucose 143 H 134 H (70-99) mg/dl Estimat Average Glucose mg/dl Hemoglobin A1c (4.5-5.6) % Osmolality (280-300) mOsm/kg Calcium (8.6-10.3) mg/dl Magnesium (1.7-2.4) mg/dl Iron (35-175) mcg/dl TIBC (250-450) mcg/dl Unsaturated IBC (155-355) mcg/dl Transferrin % Sat (20-50) % Ferritin (8-388) ng/ml Total Bilirubin (0.2-1.0) mg/dl AST (13-39) U/L ALT (7-52) U/L Alkaline Phosphatase (34-104) U/L Total Protein (6.0-8.3) gm/dl Albumin (3.4-5.0) gm/dl Globulin (2.5-4.0) gm/dl Albumin/Globulin Ratio (0.9-2) Folate (>5.38) ng/ml TSH (0.300-4.500) uIu/ml Urine Osmolality (500-800) mOsm/kg Ur Random Sodium mmol/L Blood Type O Positive Antibody Screen NEGATIVE 03/27/23 03/28/23 03/28/23 Range/Units 22:38 07:53 08:20 WBC 11.62 H (4.8-10.8) K/ul RBC 3.43 L (4.70-6.10) M/uL Hgb 10.6 L (14.0-18.0) g/dl Hct 30.4 L (42.0-52.0) % MCV 88.6 (80.0-100.0) fL MCH 30.9 (25.0-34.0) pg MCHC 34.9 (32.0-36.0) g/dL RDW Std Deviation 42.0 (36.4-46.3) fL RDW Coeff of [place] 12.8 (11.5-14.5) % Plt Count 300 (130-400) K/uL MPV 9.2 L (9.4-12.4) fL Immature Gran % (Auto) 0.9 % Neut % (Auto) 83.0 % Lymph % (Auto) 7.0 % [place] % (Auto) 8.1 % Eos % (Auto) 0.6 % Baso % (Auto) 0.4 % Neut # (Auto) 9.65 H (1.40-6.50) K/uL Lymph # (Auto) 0.81 L (1.2-3.4) K/uL [place] # (Auto) 0.94 H (0.11-0.59) K/uL Eos # (Auto) 0.07 (0-0.50) K/uL Baso # (Auto) 0.05 (0-0.2) K/uL Immature Gran # (Auto) 0.10 (0.01-0.20) K/uL Sodium 124 L (136-145) mmol/L Potassium 4.9 (3.5-5.1) mmol/L Chloride 93 L (98-107) mmol/L Carbon Dioxide 25 (21-32) mmol/L Anion Gap 6 (3-11) BUN 33 H (6-23) mg/dl Creatinine 1.58 H (0.6-1.4) mg/dl Est Cr Clr Drug Dosing 36.2 ml/min Est GFR ( Amer) 45.6 ml/min Est GFR (Non-Af Amer) 39.3 ml/min BUN/Creatinine Ratio 20.9 H (10-20) Glucose 143 H (70-99(Fasting)) mg/dl POC Glucose 123 H (70-99) mg/dl Estimat Average Glucose mg/dl Hemoglobin A1c (4.5-5.6) % Osmolality (280-300) mOsm/kg Calcium 8.3 L (8.6-10.3) mg/dl Magnesium (1.7-2.4) mg/dl Iron (35-175) mcg/dl TIBC (250-450) mcg/dl Unsaturated IBC (155-355) mcg/dl Transferrin % Sat (20-50) % Ferritin (8-388) ng/ml Total Bilirubin (0.2-1.0) mg/dl AST (13-39) U/L ALT (7-52) U/L Alkaline Phosphatase (34-104) U/L Total Protein (6.0-8.3) gm/dl Albumin (3.4-5.0) gm/dl Globulin (2.5-4.0) gm/dl Albumin/Globulin Ratio (0.9-2) Folate (>5.38) ng/ml TSH (0.300-4.500) uIu/ml Urine Osmolality (500-800) mOsm/kg Ur Random Sodium mmol/L Blood Type Antibody Screen 03/28/23 03/28/23 03/28/23 Range/Units 08:20 08:20 08:20 WBC (4.8-10.8) K/ul RBC (4.70-6.10) M/uL Hgb (14.0-18.0) g/dl Hct (42.0-52.0) % MCV (80.0-100.0) fL MCH (25.0-34.0) pg MCHC (32.0-36.0) g/dL RDW Std Deviation (36.4-46.3) fL RDW Coeff of [place] (11.5-14.5) % Plt Count (130-400) K/uL MPV (9.4-12.4) fL Immature Gran % (Auto) % Neut % (Auto) % Lymph % (Auto) % [place] % (Auto) % Eos % (Auto) % Baso % (Auto) % Neut # (Auto) (1.40-6.50) K/uL Lymph # (Auto) (1.2-3.4) K/uL [place] # (Auto) (0.11-0.59) K/uL Eos # (Auto) (0-0.50) K/uL Baso # (Auto) (0-0.2) K/uL Immature Gran # (Auto) (0.01-0.20) K/uL Sodium 126 L (136-145) mmol/L Potassium 4.9 (3.5-5.1) mmol/L Chloride 93 L (98-107) mmol/L Carbon Dioxide 25 (21-32) mmol/L Anion Gap 8 (3-11) BUN 30 H (6-23) mg/dl Creatinine 1.37 (0.6-1.4) mg/dl Est Cr Clr Drug Dosing 41.6 ml/min Est GFR ( Amer) 54.1 ml/min Est GFR (Non-Af Amer) 46.7 ml/min BUN/Creatinine Ratio 21.9 H (10-20) Glucose 116 H (70-99(Fasting)) mg/dl POC Glucose (70-99) mg/dl Estimat Average Glucose 157 mg/dl Hemoglobin A1c 7.1 H (4.5-5.6) % Osmolality (280-300) mOsm/kg Calcium 9.1 (8.6-10.3) mg/dl Magnesium 2.0 (1.7-2.4) mg/dl Iron 62 (35-175) mcg/dl TIBC 277 (250-450) mcg/dl Unsaturated IBC 215 (155-355) mcg/dl Transferrin % Sat 22 (20-50) % Ferritin 164.6 (8-388) ng/ml Total Bilirubin (0.2-1.0) mg/dl AST (13-39) U/L ALT (7-52) U/L Alkaline Phosphatase (34-104) U/L Total Protein (6.0-8.3) gm/dl Albumin (3.4-5.0) gm/dl Globulin (2.5-4.0) gm/dl Albumin/Globulin Ratio (0.9-2) Folate > 22.30 (>5.38) ng/ml TSH (0.300-4.500) uIu/ml Urine Osmolality (500-800) mOsm/kg Ur Random Sodium mmol/L Blood Type Antibody Screen 03/28/23 03/28/23 03/28/23 Range/Units 11:44 12:02 17:00 WBC (4.8-10.8) K/ul RBC (4.70-6.10) M/uL Hgb (14.0-18.0) g/dl Hct (42.0-52.0) % MCV (80.0-100.0) fL MCH (25.0-34.0) pg MCHC (32.0-36.0) g/dL RDW Std Deviation (36.4-46.3) fL RDW Coeff of [place] (11.5-14.5) % Plt Count (130-400) K/uL MPV (9.4-12.4) fL Immature Gran % (Auto) % Neut % (Auto) % Lymph % (Auto) % [place] % (Auto) % Eos % (Auto) % Baso % (Auto) % Neut # (Auto) (1.40-6.50) K/uL Lymph # (Auto) (1.2-3.4) K/uL [place] # (Auto) (0.11-0.59) K/uL Eos # (Auto) (0-0.50) K/uL Baso # (Auto) (0-0.2) K/uL Immature Gran # (Auto) (0.01-0.20) K/uL Sodium (136-145) mmol/L Potassium (3.5-5.1) mmol/L Chloride (98-107) mmol/L Carbon Dioxide (21-32) mmol/L Anion Gap (3-11) BUN (6-23) mg/dl Creatinine (0.6-1.4) mg/dl Est Cr Clr Drug Dosing ml/min Est GFR ( Amer) ml/min Est GFR (Non-Af Amer) ml/min BUN/Creatinine Ratio (10-20) Glucose (70-99(Fasting)) mg/dl POC Glucose 121 H 124 H 145 H (70-99) mg/dl Estimat Average Glucose mg/dl Hemoglobin A1c (4.5-5.6) % Osmolality (280-300) mOsm/kg Calcium (8.6-10.3) mg/dl Magnesium (1.7-2.4) mg/dl Iron (35-175) mcg/dl TIBC (250-450) mcg/dl Unsaturated IBC (155-355) mcg/dl Transferrin % Sat (20-50) % Ferritin (8-388) ng/ml Total Bilirubin (0.2-1.0) mg/dl AST (13-39) U/L ALT (7-52) U/L Alkaline Phosphatase (34-104) U/L Total Protein (6.0-8.3) gm/dl Albumin (3.4-5.0) gm/dl Globulin (2.5-4.0) gm/dl Albumin/Globulin Ratio (0.9-2) Folate (>5.38) ng/ml TSH (0.300-4.500) uIu/ml Urine Osmolality (500-800) mOsm/kg Ur Random Sodium mmol/L Blood Type Antibody Screen 03/28/23 03/28/23 03/29/23 Range/Units 18:14 20:22 07:33 WBC 11.49 H (4.8-10.8) K/ul RBC 2.88 L (4.70-6.10) M/uL Hgb 8.9 L (14.0-18.0) g/dl Hct 26.2 L (42.0-52.0) % MCV 91.0 (80.0-100.0) fL MCH 30.9 (25.0-34.0) pg MCHC 34.0 (32.0-36.0) g/dL RDW Std Deviation 42.6 (36.4-46.3) fL RDW Coeff of [place] 13.0 (11.5-14.5) % Plt Count 278 (130-400) K/uL MPV 9.6 (9.4-12.4) fL Immature Gran % (Auto) 0.9 % Neut % (Auto) 73.6 % Lymph % (Auto) 12.6 % [place] % (Auto) 11.1 % Eos % (Auto) 1.4 % Baso % (Auto) 0.4 % Neut # (Auto) 8.45 H (1.40-6.50) K/uL Lymph # (Auto) 1.45 (1.2-3.4) K/uL [place] # (Auto) 1.28 H (0.11-0.59) K/uL Eos # (Auto) 0.16 (0-0.50) K/uL Baso # (Auto) 0.05 (0-0.2) K/uL Immature Gran # (Auto) 0.10 (0.01-0.20) K/uL Sodium 129 L (136-145) mmol/L Potassium 4.6 (3.5-5.1) mmol/L Chloride 97 L (98-107) mmol/L Carbon Dioxide 24 (21-32) mmol/L Anion Gap 8 (3-11) BUN 28 H (6-23) mg/dl Creatinine 1.32 (0.6-1.4) mg/dl Est Cr Clr Drug Dosing 43.2 ml/min Est GFR ( Amer) 56.6 ml/min Est GFR (Non-Af Amer) 48.8 ml/min BUN/Creatinine Ratio 21.2 H (10-20) Glucose 155 H (70-99(Fasting)) mg/dl POC Glucose 201 H (70-99) mg/dl Estimat Average Glucose mg/dl Hemoglobin A1c (4.5-5.6) % Osmolality (280-300) mOsm/kg Calcium 8.9 (8.6-10.3) mg/dl Magnesium (1.7-2.4) mg/dl Iron (35-175) mcg/dl TIBC (250-450) mcg/dl Unsaturated IBC (155-355) mcg/dl Transferrin % Sat (20-50) % Ferritin (8-388) ng/ml Total Bilirubin (0.2-1.0) mg/dl AST (13-39) U/L ALT (7-52) U/L Alkaline Phosphatase (34-104) U/L Total Protein (6.0-8.3) gm/dl Albumin (3.4-5.0) gm/dl Globulin (2.5-4.0) gm/dl Albumin/Globulin Ratio (0.9-2) Folate (>5.38) ng/ml TSH (0.300-4.500) uIu/ml Urine Osmolality (500-800) mOsm/kg Ur Random Sodium mmol/L Blood Type Antibody Screen 03/29/23 03/29/23 Range/Units 07:33 07:50 WBC (4.8-10.8) K/ul RBC (4.70-6.10) M/uL Hgb (14.0-18.0) g/dl Hct (42.0-52.0) % MCV (80.0-100.0) fL MCH (25.0-34.0) pg MCHC (32.0-36.0) g/dL RDW Std Deviation (36.4-46.3) fL RDW Coeff of [place] (11.5-14.5) % Plt Count (130-400) K/uL MPV (9.4-12.4) fL Immature Gran % (Auto) % Neut % (Auto) % Lymph % (Auto) % [place] % (Auto) % Eos % (Auto) % Baso % (Auto) % Neut # (Auto) (1.40-6.50) K/uL Lymph # (Auto) (1.2-3.4) K/uL [place] # (Auto) (0.11-0.59) K/uL Eos # (Auto) (0-0.50) K/uL Baso # (Auto) (0-0.2) K/uL Immature Gran # (Auto) (0.01-0.20) K/uL Sodium 132 L (136-145) mmol/L Potassium 4.4 (3.5-5.1) mmol/L Chloride 100 (98-107) mmol/L Carbon Dioxide 26 (21-32) mmol/L Anion Gap 6 (3-11) BUN 24 H (6-23) mg/dl Creatinine 1.21 (0.6-1.4) mg/dl Est Cr Clr Drug Dosing 47.1 ml/min Est GFR ( Amer) 62.9 ml/min Est GFR (Non-Af Amer) 54.3 ml/min BUN/Creatinine Ratio 19.8 (10-20) Glucose 96 (70-99(Fasting)) mg/dl POC Glucose 114 H (70-99) mg/dl Estimat Average Glucose mg/dl Hemoglobin A1c (4.5-5.6) % Osmolality (280-300) mOsm/kg Calcium 8.6 (8.6-10.3) mg/dl Magnesium 2.0 (1.7-2.4) mg/dl Iron (35-175) mcg/dl TIBC (250-450) mcg/dl Unsaturated IBC (155-355) mcg/dl Transferrin % Sat (20-50) % Ferritin (8-388) ng/ml Total Bilirubin (0.2-1.0) mg/dl AST (13-39) U/L ALT (7-52) U/L Alkaline Phosphatase (34-104) U/L Total Protein (6.0-8.3) gm/dl Albumin (3.4-5.0) gm/dl Globulin (2.5-4.0) gm/dl Albumin/Globulin Ratio (0.9-2) Folate (>5.38) ng/ml TSH (0.300-4.500) uIu/ml Urine Osmolality (500-800) mOsm/kg Ur Random Sodium mmol/L Blood Type Antibody Screen
[2023-03-29 08:28] LABS: Basophils # (auto) 0.05 K/uL (0-0.2); Basophils % (auto) 0.4 %; Eosinophils # (auto) 0.16 K/uL (0-0.50); Eosinophils % (auto) 1.4 %; Hematocrit (blood only) 26.2 % (42.0-52.0); Hemoglobin 8.9 g/dl (14.0-18.0); Immature Granulocytes % (auto) 0.9 %; Lymphocytes # (auto) 1.45 K/uL (1.2-3.4); Lymphocytes % (auto) 12.6 %; Mean Corpuscular Hemoglobin 30.9 pg (25.0-34.0); Mean Platelet Volume 9.6 fL (9.4-12.4); Monocytes # (auto) 1.28 K/uL (0.11-0.59); Monocytes % (auto) 11.1 %; Neutrophils # (auto) 8.45 K/uL (1.40-6.50); Neutrophils % (auto) 73.6 %; Platelet Count 278 K/uL (130-400); RDW Standard Deviation 42.6 fL (36.4-46.3); Red Blood Count 2.88 M/uL (4.70-6.10); White Blood Count 11.49 K/ul (4.8-10.8)
[2023-03-29] MEDS: INSULIN ASPART PER UNIT CHARGE SC SCH ×4 (08:31→20:42)
[2023-03-29 08:41] LABS: BUN Creatinine Ratio 19.8 (10-20); Calcium 8.6 mg/dl (8.6-10.3); Creatinine Clr Calc Pharmacy 47.1 ml/min; Est GFR (African American) 62.9 ml/min; Est GFR (Non-African American) 54.3 ml/min; Potassium 4.4 mmol/L (3.5-5.1)
[2023-03-29] MEDS: allopurinoL 100 MG TAB PO SCH (08:54)
[2023-03-29] MEDS: MYCOPHENOLATE MOFETIL 250 MG CAP PO SCH ×2 (08:54→20:50)
[2023-03-29] MEDS: SODIUM CHLORIDE 1 GM TABLET PO SCH ×2 (08:54→20:51)
[2023-03-29] MEDS: PANTOprazole 40 MG TAB PO SCH (08:54)
[2023-03-29] MEDS: MULTIVITAMIN TAB PO SCH (08:54)
[2023-03-29] MEDS: ESCITALOPRAM OXALATE 10 MG TAB PO SCH (08:54)
[2023-03-29] MEDS: DOCUSATE SODIUM 100 MG CAP PO SCH ×2 (08:55→20:49)
[2023-03-29] MEDS: GABAPENTIN 300 MG CAP PO SCH ×3 (08:55→20:49)
[2023-03-29] MEDS: TAMSULOSIN HCL 0.4 MG CAP PO SCH (08:55)
[2023-03-29] MEDS: dexAMETHasone 6 MG in SYRINGE 0 ML IV SCH (08:55)
[2023-03-29] MEDS: LANTUS PER UNIT CHARGE SQ SCH ×2 (09:20→20:50)
--- NOTE | 2023-03-29 10:06 | Fluoroscopy Report ---
FL humerus RT 2V CLINICAL HISTORY: RT ORIF SILVIA-PROS FX COMPARISON STUDY: Right shoulder radiographs March 26, 2023. FLUOROSCOPY TIME: 44 seconds. Leonard r: 3.3429 mGy FLUOROSCOPIC IMAGES: 3 FINDINGS: Fluoroscopy was provided during internal fixation of periprosthetic right humeral fracture shown on radiographs of March 26, 2023. Lateral plate with cerclage wires is noted. Fracture alignment appears near anatomic. Right shoulder arthroplasty is again noted. IMPRESSION: Fluoroscopy provided during internal fixation of the right humeral periprosthetic fractu re. ACT 112: Negative or not required by law. Electronically signed by: Zia Elkins M.D. 03/29/2023 10:04 AM
[2023-03-29] MEDS: POLYETHYLENE (MIRALAX) 17 GM PACK PO PRN (11:14)
[2023-03-29] MEDS: ACETAMINOPHEN 500 MG TAB PO SCH ×2 (13:07→20:47)
--- NOTE | 2023-03-29 15:07 | Hospitalist Progress Note ---
Date of Service March 29, 2023 Assessment & Plan (1) Fall: Plan: Ryan So is a 83 year old male who p/w a fall at home after an episode of lightheadedness. He was found to have a fracture of his right humerus and was admitted for treatment of his fracture. Also noted to be hyponatremic. Presyncope/Dizziness -Hx of orthostatic hypotension, suspect this was etiology this episode. He does have NSVT on tele here and should continue on tele monitor-no further episodes since 03/27 -on chronic prednisone and also with hyponatremia--> perhaps some element of adrenal insufficiency contributing? Giving stress dose steroids with decadron an d now convert to prednisone 20mg hs x 3 days -ECHO obtained which shows preserved EF, pulm HTN, but no significant valvular disease -EKG with Sinus Bradycardia with RBBB -Consideration could be made for discontinuing tamsulosin if remains orthostatic -check orthostatic vital signs -PT/OT consults needed and will likely need rehab (2) Periprosthetic fracture around internal prosthetic joint: Plan: R. Humerus Fracture -Shoulder XR: "comminuted periprosthetic fracture at the distal aspect of the humeral stem component." -Consult orthopedics-now s/p repeat TSA on 03/28 -post op care as per Ortho -change pain control to IV dilaudid for severe breakthrough pain, continue oxycodone 5-10mg and change tylenol to 1000mg po tid scheduled -ice packs (3) Hyponatremia: Plan: Na+ 126 on arrival, up to 127 and then back to 124 after 2L NS on admission Baseline sodium around 132-135, but has been decreasing since he started on carbamazepine earlier this year Neurology asked him to taper off of this and he is now down to 200 mg once daily Urine osmolality high at 530, urine sodium 40. TSH is normal at 4. He is on chronic prednisone with orthostasis as noted above, could have some element of relative adrenal insufficiency. Overall, euvolemic and suspect SIADH and fortunately, this is fairly asymptomatic -Started NaCl 1000 Mg p.o. twice daily -Fluid restrict 1200 mL of free water per day -Na+ now up to 132 -Continue Lasix every other day as per home dosing -Discontinued carbamazepine -Okay to continue escitalopram as he has been on this for a long time -Giving stress dose steroids -follow BMP (4) Anemia: Plan: Hemoglobin mildly low at 11.4 and stable from previous, normocytic--> now down to 8.9 post-op with some bruising around fracture site, some blood loss anemia, and some hemodilutional With frequent leukocytosis but also on chronic steroids. Platelets are normal Peripheral smear from 6 months ago without any significant abnormalities-suspect anemia of chronic disease BCR/able and flow cytometry also normal/negative at that time Recent B12 normal, folate normal here now and iron studies normal here Follow CBC (5) Frequent PVCs: Plan: With a 10 beat run of nonsustained ventricular tachycardia on 03/27, none since then Checked echo-preserved EF Continue Toprol-XL Continue telemetry monitoring (6) Hypothyroidism: Plan: TSH normal at 4.45 -Continue home dose of levothyroxine (7) GERD (gastroesophageal reflux disease): Plan: Continue home Pepcid and Protonix (8) Cardiomyopathy: Plan: With a history of previous reduced EF heart failure, EF now normalized Follows with cardiology Continue Toprol-XL. He cannot tolerate DONY inhibitor Repeat echocardiogram performed on 03/27 for nonsustained V. tach shows preserved EF and pulmonary hypertension Continue Lasix 20 Mg p.o. every other day (9) Interstitial lung disease: Plan: Not requiring oxygen With crackles at bases on exam Continue CellCept, prednisone with stress dose steroids right now Follows with pulmonology (10) Venous insufficiency: Plan: With history of venous ablation Continue Lasix every other day (11) BPH (benign prostatic hyperplasia): Plan: No acute issues Continue finasteride, tamsulosin Consider discontinuation of tamsulosin given intermittent dizziness with standing/positive orthostatics (12) Chronic kidney disease, stage III (moderate): Plan: Creatinine at baseline except did go up slightly to 1.5, now back down to 1.2 -Avoid nephrotoxins -renally dose meds when appropriate -follow BMP (13) Migraine: Plan: No improvement with carbamazepine-follows with neurology at [facility] Discontinuing carbamazepine for hyponatremia continue gabapentin (14) DMII (diabetes mellitus, type 2): Plan: hemoglobin A1c well controlled at 7.1% Blood sugars well controlled here Continue basal and bolus insulin but adjusted doses to 35 for CF and 15 for CR (15) Anxiety: Plan: Continue Lexapro and Xanax as needed Plan DVT prophylaxis-SCDs Disposition -continued stay on medical floor with telemetry. likely stable for dc to [facility] rehab tomorrow Discussed care with daughter at bedside Admission and Anticipated Discharge Date Admission Date: March 26, 2023 Subjective Having pain in right shoulder somewhat controlled but not well controlled. Had Maier removed this AM and only minimal void since. No BM yet. No CP, SOB, nausea. Tele with NSR, SB, rates 50-60s Physical Exam Constitutional: WD/WN, vitals as above Eyes: + anicteric sclerae Respiratory: normal respiratory effort; no cough Auscultation: lungs clear to auscultation bilaterally Cardiovascular: RRR, no murmur, no edema Gastrointestinal (Abdomen): normal bowel sounds, soft, nontender, no hepatosplenomegaly Musculoskeletal: Extremities: + extremities abnormal to inspection (RUE with immobilizer in place) Skin: Trauma: + evidence of skin trauma (left elbow and dorsal forearm with large skin tears dressingc/d/i) Neurologic: moves all extremities; no focal motor deficits and not confused Psychiatric: A+Ox3, euthymic affect Results & Data Results & Data Vital Signs (Past 12 Hours) Vital Signs Temp Pulse Pulse Resp BP Pulse Ox O2 Del Method 03/29/23 11:33 36.6 C 58 L 18 170/77 H 91 Room Air 03/29/23 07:56 36.5 C 63 18 185/82 H 93 Room Air 03/29/23 07:00 55 L 03/29/23 04:00 36.5 C 67 18 146/74 H 99 Nasal Cannula O2 Flow Rate 03/29/23 11:33 03/29/23 07:56 03/29/23 07:00 03/29/23 04:00 2 Laboratory Results CBC, BMP, Magnesium reviewed PG Care Time/CCT Total # of Minutes Spent Total Time Spent with Patient: Total time spent is greater than 50% in coordination of care (as documented) at patient's floor/unit and/or counseling patient: Coding Level of Care Code 13185 SUB INP/OBS CARE 2/35MIN Diagnoses Fall W19.XXXA Periprosthetic fracture around internal prosthetic joint M97.9XXA Hyponatremia E87.1 Anemia D64.9 Frequent PVCs I49.3 Hypothyroidism E03.9 GERD (gastroesophageal reflux disease) K21.9 Cardiomyopathy I42.9 Interstitial lung disease J84.9 Venous insufficiency I87.2 BPH (benign prostatic hyperplasia) N40.0 Lower urinary tract symptom presence: symptoms absent Chronic kidney disease, stage III (moderate) N18.30 Migraine G43.909 DMII (diabetes mellitus, type 2) E11.22; N18.31; Z79.4 Chronic kidney disease stage: stage 3 (moderate) Chronic kidney disease stage 3 subtype: stage 3a (GFR 45-59) Diabetes mellitus complication detail: with chronic kidney disease Diabetes mellitus complication status: with kidney complications Diabetes mellitus terminal superintendent insulin use: with nursing home use Anxiety F41.9 (11) BPH (benign prostatic hyperplasia) Lower urinary tract symptom presence: symptoms absent Qualified Code(s): N40.0 - Benign prostatic hyperplasia without lower urinary tract symptoms (14) DMII (diabetes mellitus, type 2) Chronic kidney disease stage: stage 3 (moderate) Chronic kidney disease stage 3 subtype: stage 3a (GFR 45-59) Diabetes mellitus complication detail: with chronic kidney disease Diabetes mellitus complication status: with kidney complications Diabetes mellitus terminal superintendent insulin use: with nursing home use Qualified Code(s): E11.22 - Type 2 diabetes mellitus with diabetic chronic kidney disease; N18.31 - Chronic kidney disease, stage 3a; Z79.4 - terminal superintendent (current) use of insulin
[2023-03-29] MEDS: HYDROmorphone INJ 0.5 MG/0.5 ML SYR IV PRN (18:08)
[2023-03-29] MEDS: ALPRAZolam 0.5 MG TABLET PO SCH (20:48)
[2023-03-29] MEDS: FINASTERIDE 5 MG TAB PO SCH (20:49)
[2023-03-29] MEDS: FAMOTIDINE 40 MG TABLET PO SCH (20:49)
[2023-03-29] MEDS: METOPROLOL SUCC 25MG EXT REL TAB PO SCH (20:50)
[2023-03-29] MEDS: SENNA 8.6 MG TAB PO SCH (20:51)
[2023-03-29] MEDS ORDERED: predniSONE 20 MG TAB PO SCH (21:00)
[2023-03-30] MEDS: HYDROmorphone INJ 0.5 MG/0.5 ML SYR IV PRN (00:25)
[2023-03-30] MEDS: oxyCODONE HCL IR 5 MG TAB (IMMEDIATE RELEASE) PO PRN (06:25)
[2023-03-30] MEDS: LEVOTHYROXINE SODIUM 50 MCG TABLET PO SCH (06:25)
[2023-03-30 07:17] LABS: Basophils # (auto) 0.05 K/uL (0-0.2); Basophils % (auto) 0.4 %; Eosinophils # (auto) 0.24 K/uL (0-0.50); Hematocrit (blood only) 26.7 % (42.0-52.0); Hemoglobin 9.2 g/dl (14.0-18.0); Immature Granulocytes # (auto) 0.09 K/uL (0.01-0.20); Immature Granulocytes % (auto) 0.8 %; Lymphocytes # (auto) 1.39 K/uL (1.2-3.4); Lymphocytes % (auto) 11.6 %; Mean Corpuscular Hemoglobin 31.4 pg (25.0-34.0); Mean Corpuscular Hgb Conc 34.5 g/dL (32.0-36.0); Mean Corpuscular Volume 91.1 fL (80.0-100.0); Mean Platelet Volume 9.3 fL (9.4-12.4); Monocytes # (auto) 1.31 K/uL (0.11-0.59); Monocytes % (auto) 10.9 %; Neutrophils % (auto) 74.3 %; Platelet Count 318 K/uL (130-400); RDW Coefficient of Variation 12.9 % (11.5-14.5); RDW Standard Deviation 42.4 fL (36.4-46.3); Red Blood Count 2.93 M/uL (4.70-6.10); White Blood Count 11.98 K/ul (4.8-10.8)
[2023-03-30 07:47] LABS: BUN Creatinine Ratio 18.5 (10-20); Calcium 8.9 mg/dl (8.6-10.3); Est GFR (African American) 61.1 ml/min; Est GFR (Non-African American) 52.7 ml/min; Potassium 4.3 mmol/L (3.5-5.1)
[2023-03-30] MEDS: INSULIN ASPART PER UNIT CHARGE SC SCH ×4 (08:59→23:45)
[2023-03-30] MEDS: LANTUS PER UNIT CHARGE SQ SCH ×2 (09:00→23:45)
[2023-03-30] MEDS: DOCUSATE SODIUM 100 MG CAP PO SCH ×2 (09:00→23:21)
[2023-03-30] MEDS: ACETAMINOPHEN 500 MG TAB PO SCH ×3 (09:00→23:21)
[2023-03-30] MEDS: POLYETHYLENE (MIRALAX) 17 GM PACK PO PRN (09:00)
[2023-03-30] MEDS: MULTIVITAMIN TAB PO SCH (09:01)
[2023-03-30] MEDS: SODIUM CHLORIDE 1 GM TABLET PO SCH ×2 (09:01→23:17)
[2023-03-30] MEDS: PANTOprazole 40 MG TAB PO SCH (09:01)
[2023-03-30] MEDS: TAMSULOSIN HCL 0.4 MG CAP PO SCH (09:01)
[2023-03-30] MEDS: ESCITALOPRAM OXALATE 10 MG TAB PO SCH (09:01)
[2023-03-30] MEDS: GABAPENTIN 300 MG CAP PO SCH ×3 (09:01→23:19)
[2023-03-30] MEDS: MYCOPHENOLATE MOFETIL 250 MG CAP PO SCH ×2 (09:01→23:18)
[2023-03-30] MEDS: allopurinoL 100 MG TAB PO SCH (09:01)
[2023-03-30] MEDS: FUROSEMIDE 20 MG TAB PO SCH (09:01)
--- NOTE | 2023-03-30 11:01 | Orthopedic Progress Note ---
Date of Service March 30, 2023 Assessment & Plan (1) Periprosthetic fracture around internal prosthetic joint: Plan: POD#2 ORIF right periprosthetic humerus fracture -PT/OT no shoulder ROM. May do gentle elbow/wrist/hand motion. -Pain management as written -DVT prophylaxis-SCDs, as per medicine -D/C planning- Plan for [facility] vs SNF Admission and Anticipated Discharge Date Admission Date: March 26, 2023 Subjective Postop day 2 Patient sitting in his chair at the bedside. Just finished up his physical therapy. PT states he is doing well. No new complaints. Pain is controlled. Physical Exam Physical Exam: Dressings have some scant drainage noted on it but are otherwise intact. Bruising noted around the right upper extremity expected from surgery. Sling is in place. Good range of motion of his right wrist and fingers. Good strength. Cap refills less than 2 seconds. Sensation is intact. Results & Data Vital Signs (Past 12 Hours) Vital Signs Temp Pulse Pulse Resp BP Pulse Ox O2 Del Method 03/30/23 07:22 36.6 C 71 20 110/62 93 Room Air 03/30/23 04:11 37 C 75 18 129/52 L 92 Room Air 03/29/23 23:28 68 Laboratory Results 03/30/23 03/30/23 03/30/23 Range/Units 07:38 06:47 06:47 WBC 11.98 H (4.8-10.8) K/ul RBC 2.93 L (4.70-6.10) M/uL Hgb 9.2 L (14.0-18.0) g/dl Hct 26.7 L (42.0-52.0) % MCV 91.1 (80.0-100.0) fL MCH 31.4 (25.0-34.0) pg MCHC 34.5 (32.0-36.0) g/dL RDW Std Deviation 42.4 (36.4-46.3) fL RDW Coeff of Graham 12.9 (11.5-14.5) % Plt Count 318 (130-400) K/uL MPV 9.3 L (9.4-12.4) fL Immature Gran % (Auto) 0.8 % Neut % (Auto) 74.3 % Lymph % (Auto) 11.6 % Marion % (Auto) 10.9 % Eos % (Auto) 2.0 % Baso % (Auto) 0.4 % Neut # (Auto) 8.90 H (1.40-6.50) K/uL Lymph # (Auto) 1.39 (1.2-3.4) K/uL Marion # (Auto) 1.31 H (0.11-0.59) K/uL Eos # (Auto) 0.24 (0-0.50) K/uL Baso # (Auto) 0.05 (0-0.2) K/uL Immature Gran # (Auto) 0.09 (0.01-0.20) K/uL Sodium 130 L (136-145) mmol/L Potassium 4.3 (3.5-5.1) mmol/L Chloride 100 (98-107) mmol/L Carbon Dioxide 23 (21-32) mmol/L Anion Gap 7 (3-11) BUN 23 (6-23) mg/dl Creatinine 1.24 (0.6-1.4) mg/dl Est Cr Clr Drug Dosing 46.0 ml/min Est GFR ( Amer) 61.1 ml/min Est GFR (Non-Af Amer) 52.7 ml/min BUN/Creatinine Ratio 18.5 (10-20) Glucose 134 H (70-99(Fasting)) mg/dl POC Glucose 142 H (70-99) mg/dl Calcium 8.9 (8.6-10.3) mg/dl 03/29/23 03/29/23 03/29/23 Range/Units 20:11 16:48 11:44 WBC (4.8-10.8) K/ul RBC (4.70-6.10) M/uL Hgb (14.0-18.0) g/dl Hct (42.0-52.0) % MCV (80.0-100.0) fL MCH (25.0-34.0) pg MCHC (32.0-36.0) g/dL RDW Std Deviation (36.4-46.3) fL RDW Coeff of Graham (11.5-14.5) % Plt Count (130-400) K/uL MPV (9.4-12.4) fL Immature Gran % (Auto) % Neut % (Auto) % Lymph % (Auto) % Marion % (Auto) % Eos % (Auto) % Baso % (Auto) % Neut # (Auto) (1.40-6.50) K/uL Lymph # (Auto) (1.2-3.4) K/uL Marion # (Auto) (0.11-0.59) K/uL Eos # (Auto) (0-0.50) K/uL Baso # (Auto) (0-0.2) K/uL Immature Gran # (Auto) (0.01-0.20) K/uL Sodium (136-145) mmol/L Potassium (3.5-5.1) mmol/L Chloride (98-107) mmol/L Carbon Dioxide (21-32) mmol/L Anion Gap (3-11) BUN (6-23) mg/dl Creatinine (0.6-1.4) mg/dl Est Cr Clr Drug Dosing ml/min Est GFR ( Amer) ml/min Est GFR (Non-Af Amer) ml/min BUN/Creatinine Ratio (10-20) Glucose (70-99(Fasting)) mg/dl POC Glucose 148 H 235 H 102 H (70-99) mg/dl Calcium (8.6-10.3) mg/dl
--- NOTE | 2023-03-30 18:12 | Hospitalist Progress Note ---
Date of Service March 30, 2023 Assessment & Plan (1) Fall: Plan: Ryan So is a 83 year old male who p/w a fall at home after an episode of lightheadedness. He was found to have a fracture of his right humerus and was admitted for treatment of his fracture. Also noted to be hyponatremic. Presyncope/Dizziness -Hx of orthostatic hypotension, suspect this was etiology this episode. He does have NSVT on tele here and should continue on tele monitor-no further episodes since 03/27 -on chronic prednisone and also with hyponatremia--> perhaps some element of adrenal insufficiency contributing? Giving stress dose steroids with decadron an d then converted to prednisone 20mg hs x 3 days -ECHO obtained which shows preserved EF, pulm HTN, but no significant valvular disease -EKG with Sinus Bradycardia with RBBB -Consideration could be made for discontinuing tamsulosin if remains orthostatic -orthostatic vital signs negative -PT/OT consults needed and awaiting rehab placement (2) Periprosthetic fracture around internal prosthetic joint: Plan: R. Humerus Fracture -Shoulder XR: "comminuted periprosthetic fracture at the distal aspect of the humeral stem component." -Consult orthopedics-now s/p repeat TSA on 03/28 -post op care as per Ortho -pain control with IV dilaudid for severe breakthrough pain, continue oxycodone 5-10mg and tylenol 1000mg po tid scheduled -ice packs (3) Hyponatremia: Plan: Na+ 126 on arrival, up to 127 and then back to 124 after 2L NS on admission Baseline sodium around 132-135, but has been decreasing since he started on carbamazepine earlier this year Neurology asked him to taper off of this and he is now down to 200 mg once daily Urine osmolality high at 530, urine sodium 40. TSH is normal at 4. He is on chronic prednisone with orthostasis episodes as an outpatient as noted above, could have some element of relative adrenal insufficiency. Overall, euvolemic and suspect SIADH and fortunately, this is fairly asymptomatic -Started NaCl 1000 Mg p.o. twice daily -Fluid restrict 1200 mL of free water per day -Na+ now up to 130-132 -Continue Lasix every other day as per home dosing -Discontinued carbamazepine permanently -Okay to continue escitalopram as he has been on this for a long time -Giving stress dose steroids -follow BMP -Continue salt tablets for now but once effect of carbamazepine is worn off, he may not need to continue these indefinitely (4) Anemia: Plan: Hemoglobin mildly low at 11.4 and stable from previous, normocytic--> now down to 9.2 post-op with some bruising around fracture site, some blood loss anemia, and some hemodilutional With frequent leukocytosis but also on chronic steroids. Platelets are normal Peripheral smear from 6 months ago without any significant abnormalities-suspect anemia of chronic disease BCR/able and flow cytometry also normal/negative at that time Recent B12 normal, folate normal here now and iron studies normal here Follow CBC (5) Frequent PVCs: Plan: With a 10 beat run of nonsustained ventricular tachycardia on 03/27, none since then Checked echo-preserved EF Continue Toprol-XL Continue telemetry monitoring (6) Hypothyroidism: Plan: TSH normal at 4.45 -Continue home dose of levothyroxine (7) GERD (gastroesophageal reflux disease): Plan: Continue home Pepcid and Protonix (8) Cardiomyopathy: Plan: With a history of previous reduced EF heart failure, EF now normalized Follows with cardiology Continue Toprol-XL. He cannot tolerate DONY inhibitor Repeat echocardiogram performed on 03/27 for nonsustained V. tach shows preserved EF and pulmonary hypertension Continue Lasix 20 Mg p.o. every other day (9) Interstitial lung disease: Plan: Not requiring oxygen With crackles at bases on exam Continue CellCept, prednisone with stress dose steroids right now Follows with pulmonology (10) Venous insufficiency: Plan: With history of venous ablation Continue Lasix every other day (11) BPH (benign prostatic hyperplasia): Plan: No acute issues Continue finasteride, tamsulosin Consider discontinuation of tamsulosin given intermittent dizziness with standing/positive orthostatics (12) Chronic kidney disease, stage III (moderate): Plan: Creatinine at baseline except did go up slightly to 1.5, now back down to 1.2 and stable -Avoid nephrotoxins -renally dose meds when appropriate -follow BMP (13) Migraine: Plan: No improvement with carbamazepine-follows with neurology at [facility] Discontinuing carbamazepine for hyponatremia continue gabapentin (14) DMII (diabetes mellitus, type 2): Plan: hemoglobin A1c well controlled at 7.1% Blood sugars well controlled here Continue basal and bolus insulin but adjusted doses to 35 for CF and 15 for CR (15) Anxiety: Plan: Continue Lexapro and Xanax as needed Plan DVT prophylaxis-SCDs Disposition -medically stable for discharge, awaiting insurance authorization for [facility] Admission and Anticipated Discharge Date Admission Date: March 26, 2023 Subjective Patient reports pain is much better controlled today. No other complaints. Physical Exam Constitutional: WD/WN, vitals as above Eyes: + anicteric sclerae Respiratory: normal respiratory effort; no cough Auscultation: lungs clear to auscultation bilaterally and + crackles (Fine at the bases); no rhonchi and no wheezes Cardiovascular: RRR, no murmur, no edema Gastrointestinal (Abdomen): normal bowel sounds, soft, nontender, no hepatosplenomegaly Musculoskeletal: Extremities: + extremities abnormal to inspection (RUE with sling in place, dressings clean dry and intact over shoulder) Skin: Trauma: + evidence of skin trauma (left elbow and dorsal forearm with large skin tears dressingc/d/i) Neurologic: moves all extremities; no focal motor deficits and not confused Psychiatric: A+Ox3, euthymic affect Results & Data Results & Data Vital Signs (Past 12 Hours) Vital Signs Temp Pulse Pulse Resp BP Pulse Ox O2 Del Method 03/30/23 16:56 68 03/30/23 14:31 36.7 C 59 L 20 142/77 H 93 Room Air 03/30/23 11:35 36.6 C 18 93 Room Air 03/30/23 11:14 77 03/30/23 07:22 36.6 C 71 20 110/62 93 Room Air Laboratory Results CBC, BMP reviewed PG Care Time/CCT Total # of Minutes Spent Total Time Spent with Patient: Total time spent is greater than 50% in coordination of care (as documented) at patient's floor/unit and/or counseling patient: Coding Level of Care Code 04609 SUB INP/OBS CARE 2/35MIN Diagnoses Fall W19.XXXA Periprosthetic fracture around internal prosthetic joint M97.9XXA Hyponatremia E87.1 Anemia D64.9 Frequent PVCs I49.3 Hypothyroidism E03.9 GERD (gastroesophageal reflux disease) K21.9 Cardiomyopathy I42.9 Interstitial lung disease J84.9 Venous insufficiency I87.2 BPH (benign prostatic hyperplasia) N40.0 Lower urinary tract symptom presence: symptoms absent Chronic kidney disease, stage III (moderate) N18.30 Migraine G43.909 DMII (diabetes mellitus, type 2) E11.22; N18.31; Z79.4 Diabetes mellitus 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 insulin use: with intermediate use Diabetes mellitus complication status: with kidney complications Diabetes mellitus complication detail: with chronic kidney disease Chronic kidney disease stage: stage 3 (moderate) Chronic kidney disease stage 3 subtype: stage 3a (GFR 45-59) Anxiety F41.9 (11) BPH (benign prostatic hyperplasia) Lower urinary tract symptom presence: symptoms absent Qualified Code(s): N40.0 - Benign prostatic hyperplasia without lower urinary tract symptoms (14) DMII (diabetes mellitus, type 2) Diabetes mellitus buttermilk 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
[2023-03-30] MEDS ORDERED: predniSONE 5 MG TAB PO SCH (21:00)
[2023-03-30] MEDS: SENNA 8.6 MG TAB PO SCH (23:17)
[2023-03-30] MEDS: FINASTERIDE 5 MG TAB PO SCH (23:20)
[2023-03-30] MEDS: FAMOTIDINE 40 MG TABLET PO SCH (23:20)
[2023-03-30] MEDS: ALPRAZolam 0.5 MG TABLET PO SCH (23:46)
[2023-03-30] MEDS: METOPROLOL SUCC 25MG EXT REL TAB PO SCH (23:55)
[2023-03-31] MEDS: oxyCODONE HCL IR 5 MG TAB (IMMEDIATE RELEASE) PO PRN ×2 (00:04→10:31)
[2023-03-31] MEDS ORDERED: MELATONIN 3 MG TAB PO PRN (01:10)
[2023-03-31] MEDS: LEVOTHYROXINE SODIUM 50 MCG TABLET PO SCH (06:05)
--- NOTE | 2023-03-31 07:48 | Orthopedic Progress Note ---
Date of Service March 31, 2023 Assessment & Plan (1) Periprosthetic fracture around internal prosthetic joint: Plan: POD#3 ORIF right periprosthetic humerus fracture -PT/OT no shoulder ROM. May do gentle elbow/wrist/hand motion. -Pain management as written -DVT prophylaxis-SCDs, as per medicine -D/C planning- Plan for [facility] vs SNF pending insurance authorization. Orthopedics will sign off at this time. Please call with any questions. Patient can follow-up with Dr. Johnson or myself 12 to 14 days postoperatively. Admission and Anticipated Discharge Date Admission Date: March 26, 2023 Supervising Physician Co-Signing Physician Notes Patient seen and examined. Agree with NORY Oviedo's note as above. Patient is doing well and resting comfortably in the chair. He has been ambulating in the hallway without assistance. Pain is well controlled. Motor and sensory function is intact in the median, radial, ulnar, and axillary nerve distributions. Dressing is clean, dry, intact. H&H 9.9/28.6. May do hand, wrist, and elbow range of motion, but no shoulder range of motion at this time. DVT prophylaxis discussed with medicine team; would suggest aspirin 325 mg daily x4 weeks. Disposition pending. May not qualify for rehab since he is doing so well. Discharge per medicine. Follow-up with Dr. Johnson in orthopedics clinic 10 to 14 days postop. Please call [facility] at [phone] to make an appointment. Subjective Patient is postop day 3 ORIF right periprosthetic humerus fracture. He is sitting in bedside chair. His pain is better today. Otherwise feeling well. Denies any chest pain, shortness of breath, nausea/vomiting/diarrhea, headaches or dizziness. Review of Systems Review of Systems: All systems reviewed & are unremarkable except as noted in Subjective Physical Exam Physical Exam: Right upper arm dressing is c/d/i, sling in place. Mild to moderate ecchymosis within expected range. Fingers are mobile with good electric fan assembler strength. Distally n/v status and sensation grossly intact. Results & Data Vital Signs (Past 12 Hours) Vital Signs Temp Pulse Resp BP Pulse Ox O2 Del Method 03/31/23 07:30 36.7 C 66 16 148/72 H 94 Room Air 03/31/23 03:00 36.4 C L 50 L 18 108/66 93 Room Air 03/30/23 22:00 36.4 C L 72 20 154/67 H 95 Room Air
[2023-03-31 08:24] LABS: Basophils # (auto) 0.04 K/uL (0-0.2); Basophils % (auto) 0.3 %; Eosinophils # (auto) 0.08 K/uL (0-0.50); Eosinophils % (auto) 0.6 %; Hematocrit (blood only) 28.6 % (42.0-52.0); Hemoglobin 9.9 g/dl (14.0-18.0); Immature Granulocytes # (auto) 0.15 K/uL (0.01-0.20); Immature Granulocytes % (auto) 1.1 %; Lymphocytes # (auto) 0.68 K/uL (1.2-3.4); Lymphocytes % (auto) 5.2 %; Mean Corpuscular Hemoglobin 31.5 pg (25.0-34.0); Mean Corpuscular Hgb Conc 34.6 g/dL (32.0-36.0); Mean Corpuscular Volume 91.1 fL (80.0-100.0); Mean Platelet Volume 9.2 fL (9.4-12.4); Monocytes # (auto) 0.83 K/uL (0.11-0.59); Monocytes % (auto) 6.3 %; Neutrophils # (auto) 11.36 K/uL (1.40-6.50); Neutrophils % (auto) 86.5 %; Platelet Count 348 K/uL (130-400); RDW Coefficient of Variation 13.2 % (11.5-14.5); RDW Standard Deviation 44.4 fL (36.4-46.3); Red Blood Count 3.14 M/uL (4.70-6.10); White Blood Count 13.14 K/ul (4.8-10.8)
[2023-03-31] MEDS: LANTUS PER UNIT CHARGE SQ SCH ×2 (08:25→20:35)
[2023-03-31] MEDS: INSULIN ASPART PER UNIT CHARGE SC SCH ×4 (08:26→20:35)
[2023-03-31] MEDS: SODIUM CHLORIDE 1 GM TABLET PO SCH ×2 (08:26→20:33)
[2023-03-31] MEDS: TAMSULOSIN HCL 0.4 MG CAP PO SCH (08:26)
[2023-03-31] MEDS: GABAPENTIN 300 MG CAP PO SCH ×3 (08:27→20:34)
[2023-03-31] MEDS: DOCUSATE SODIUM 100 MG CAP PO SCH ×2 (08:27→20:33)
[2023-03-31] MEDS: PANTOprazole 40 MG TAB PO SCH (08:27)
[2023-03-31] MEDS: MULTIVITAMIN TAB PO SCH (08:27)
[2023-03-31] MEDS: ESCITALOPRAM OXALATE 10 MG TAB PO SCH (08:27)
[2023-03-31] MEDS: ACETAMINOPHEN 500 MG TAB PO SCH ×3 (08:27→20:35)
[2023-03-31] MEDS: allopurinoL 100 MG TAB PO SCH (08:27)
[2023-03-31] MEDS: MYCOPHENOLATE MOFETIL 250 MG CAP PO SCH ×2 (08:28→20:34)
[2023-03-31 08:55] LABS: BUN Creatinine Ratio 23.5 (10-20); Calcium 9.1 mg/dl (8.6-10.3); Creatinine Clr Calc Pharmacy 58.8 ml/min; Est GFR (African American) 81.2 ml/min; Potassium 4.4 mmol/L (3.5-5.1)
[2023-03-31] MEDS: ASPIRIN 325 MG ECTAB PO SCH (11:52)
[2023-03-31] MEDS: POLYETHYLENE (MIRALAX) 17 GM PACK PO SCH (11:56)
--- NOTE | 2023-03-31 18:29 | Hospitalist Progress Note ---
Date of Service March 31, 2023 Assessment & Plan (1) Fall: Plan: Ryan So is a 83 year old male who p/w a fall at home after an episode of lightheadedness. He was found to have a fracture of his right humerus and was admitted for treatment of his fracture. Also noted to be hyponatremic. Presyncope/Dizziness -Hx of orthostatic hypotension, suspect this was etiology this episode. He does have NSVT on tele here and should continue on tele monitor-no further episodes since 03/27 -on chronic prednisone and also with hyponatremia--> perhaps some element of adrenal insufficiency contributing? Giving stress dose steroids with decadron an d then converted to prednisone taper back to home dose-decrease to 10 mg for tonight -ECHO obtained which shows preserved EF, pulm HTN, but no significant valvular disease -EKG with Sinus Bradycardia with RBBB -Consideration could be made for discontinuing tamsulosin if remains orthostatic -orthostatic vital signs here are negative -PT/OT consults recommend rehab placement (2) Periprosthetic fracture around internal prosthetic joint: Plan: R. Humerus Fracture -Shoulder XR: "comminuted periprosthetic fracture at the distal aspect of the humeral stem component." -Consult orthopedics-now s/p repeat TSA on 03/28 -post op care as per Ortho -pain control with IV dilaudid for severe breakthrough pain, continue oxycodone 5-10mg and tylenol 1000mg po tid scheduled-no longer requiring IV pain medicine -Discussed starting aspirin 325 mg daily for DVT prophylaxis x4 weeks as per orthopedic surgery on 03/31 (3) Hyponatremia: Plan: Na+ 126 on arrival, up to 127 and then back to 124 after 2L NS on admission Baseline sodium around 132-135, but has been decreasing since he started on carbamazepine earlier this year Neurology asked him to taper off of this and he was down to 200 mg once daily prior to admission Urine osmolality high at 530, urine sodium 40. TSH is normal at 4. He is on chronic prednisone with orthostasis episodes as an outpatient as noted above, could have some element of relative adrenal insufficiency. Overall, euvolemic and suspect SIADH and fortunately, this is fairly asymptomatic -Started NaCl 1000 Mg p.o. twice daily -Fluid restrict 1200 mL of free water per day -Na+ now up to 134 -Continue Lasix every other day as per home dosing -Discontinued carbamazepine permanently -Okay to continue escitalopram as he has been on this for a long time -Giving stress dose steroids -follow BMP -Continue salt tablets for now but once effect of carbamazepine is worn off, he may not need to continue these indefinitely-we will likely be able to stop salt tabs tomorrow (4) Anemia: Plan: Hemoglobin mildly low at 11.4 on admission and stable from previous, normocytic--> now down to 9.9 post-op with some bruising around fracture site, some blood loss anemia, and some hemodilutional With frequent leukocytosis but also on chronic steroids. Platelets are normal Peripheral smear from 6 months ago without any significant abnormalities-suspect anemia of chronic disease BCR/able and flow cytometry also normal/negative at that time Recent B12 normal, folate normal here now and iron studies normal here Follow CBC again in the morning (5) Frequent PVCs: Plan: With a 10 beat run of nonsustained ventricular tachycardia on 03/27, none since then Checked echo-preserved EF Continue Toprol-XL Continue telemetry monitoring-continues with frequent PVCs and bigeminy but no further V. tach (6) Hypothyroidism: Plan: TSH normal at 4.45 -Continue home dose of levothyroxine (7) GERD (gastroesophageal reflux disease): Plan: Continue home Pepcid and Protonix (8) Cardiomyopathy: Plan: With a history of previous reduced EF heart failure, EF now normalized Follows with cardiology Continue Toprol-XL. He cannot tolerate DONY inhibitor Repeat echocardiogram performed on 03/27 for nonsustained V. tach shows preserved EF and pulmonary hypertension Continue Lasix 20 Mg p.o. every other day (9) Interstitial lung disease: Plan: Not requiring oxygen With crackles at bases on exam Continue CellCept, prednisone with stress dose steroids right now Follows with pulmonology (10) Venous insufficiency: Plan: With history of venous ablation Continue Lasix every other day (11) BPH (benign prostatic hyperplasia): Plan: No acute issues Continue finasteride, tamsulosin Consider discontinuation of tamsulosin given intermittent dizziness with standing/positive orthostatics although orthostatics are now negative (12) Chronic kidney disease, stage III (moderate): Plan: Creatinine at baseline except did go up slightly to 1.5, now back down to 0.9 and stable -Avoid nephrotoxins -renally dose meds when appropriate -follow BMP (13) Migraine: Plan: No improvement with carbamazepine-follows with neurology at [facility] Discontinuing carbamazepine for hyponatremia continue gabapentin (14) DMII (diabetes mellitus, type 2): Plan: hemoglobin A1c well controlled at 7.1% Blood sugars well controlled here Continue basal and bolus insulin but adjusted doses to 35 for CF and 15 for CR (15) Anxiety: Plan: Continue Lexapro and Xanax Plan DVT prophylaxis-SCDs, aspirin 325 mg p.o. daily x4 weeks Disposition -medically stable for discharge, still awaiting insurance authorization for [facility] Admission and Anticipated Discharge Date Admission Date: March 26, 2023 Subjective Patient reports pain is controlled. He moved his bowels. No trouble voiding. No other complaints. He is ambulating in the halls. Telemetry with sinus bradycardia and sinus rhythm with first-degree AV block, PACs, PVCs, couplets and bigeminy, rates in the 60s I discussed his care with orthopedic surgery at the bedside Physical Exam Constitutional: WD/WN, vitals as above Eyes: + anicteric sclerae Respiratory: normal respiratory effort; no cough Auscultation: lungs clear to auscultation bilaterally and + crackles (Fine at the bases); no rhonchi and no wheezes Cardiovascular: RRR, no murmur, no edema Gastrointestinal (Abdomen): normal bowel sounds, soft, nontender, no hepatosplenomegaly Musculoskeletal: Extremities: + extremities abnormal to inspection (RUE with sling in place, dressings clean dry and intact over shoulder) Skin: Trauma: + evidence of skin trauma (left elbow and dorsal forearm with large skin tears dressingc/d/i) and + hematoma (Bruising over right humerus) Neurologic: moves all extremities; no focal motor deficits and not confused Psychiatric: A+Ox3, euthymic affect Results & Data Results & Data Vital Signs (Past 12 Hours) Vital Signs Temp Pulse Pulse Resp BP Pulse Ox O2 Del Method 03/31/23 16:33 65 03/31/23 15:38 36.6 C 63 20 151/72 H 92 Room Air 03/31/23 11:03 36.7 C 62 18 96/55 L 96 Room Air 03/31/23 08:00 54 L 03/31/23 07:30 36.7 C 66 16 148/72 H 94 Room Air Laboratory Results CBC, BMP reviewed PG Care Time/CCT Total # of Minutes Spent Total Time Spent with Patient: Total time spent is greater than 50% in coordination of care (as documented) at patient's floor/unit and/or counseling patient: Coding Level of Care Code 94114 SUB INP/OBS CARE 2/35MIN Diagnoses Fall W19.XXXA Periprosthetic fracture around internal prosthetic joint M97.9XXA Hyponatremia E87.1 Anemia D64.9 Frequent PVCs I49.3 Hypothyroidism E03.9 GERD (gastroesophageal reflux disease) K21.9 Cardiomyopathy I42.9 Interstitial lung disease J84.9 Venous insufficiency I87.2 BPH (benign prostatic hyperplasia) N40.0 Lower urinary tract symptom presence: symptoms absent Chronic kidney disease, stage III (moderate) N18.30 Migraine G43.909 DMII (diabetes mellitus, type 2) E11.22; N18.31; Z79.4 Diabetes mellitus parts counterman insulin use: with snf use Diabetes mellitus complication status: with kidney complications Diabetes mellitus complication detail: with chronic kidney disease Chronic kidney disease stage: stage 3 (moderate) Chronic kidney disease stage 3 subtype: stage 3a (GFR 45-59) Anxiety F41.9 (11) BPH (benign prostatic hyperplasia) Lower urinary tract symptom presence: symptoms absent Qualified Code(s): N40.0 - Benign prostatic hyperplasia without lower urinary tract symptoms (14) DMII (diabetes mellitus, type 2) Diabetes mellitus snf insulin use: with parts counterman use Diabetes mellitus complication status: with kidney complications Diabetes mellitus complication detail: with chronic kidney disease Chronic kidney disease stage: stage 3 (moderate) Chronic kidney disease stage 3 subtype: stage 3a (GFR 45-59) Qualified Code(s): E11.22 - Type 2 diabetes mellitus with diabetic chronic kidney disease; N18.31 - Chronic kidney disease, stage 3a; Z79.4 - [facility] (current) use of insulin
[2023-03-31] MEDS: ALPRAZolam 0.5 MG TABLET PO SCH (20:32)
[2023-03-31] MEDS: FINASTERIDE 5 MG TAB PO SCH (20:34)
[2023-03-31] MEDS: METOPROLOL SUCC 25MG EXT REL TAB PO SCH (20:34)
[2023-03-31] MEDS: FAMOTIDINE 40 MG TABLET PO SCH (20:34)
[2023-03-31] MEDS: SENNA 8.6 MG TAB PO SCH (20:34)
[2023-03-31] MEDS: predniSONE 10 MG TABLET PO SCH (20:36)
[2023-04-01] MEDS: LEVOTHYROXINE SODIUM 50 MCG TABLET PO SCH (05:37)
[2023-04-01] MEDS: ACETAMINOPHEN 500 MG TAB PO SCH ×3 (08:23→21:03)
[2023-04-01] MEDS: DOCUSATE SODIUM 100 MG CAP PO SCH ×2 (08:24→21:02)
[2023-04-01] MEDS: MYCOPHENOLATE MOFETIL 250 MG CAP PO SCH ×2 (08:24→21:02)
[2023-04-01] MEDS: SODIUM CHLORIDE 1 GM TABLET PO SCH (08:24)
[2023-04-01] MEDS: ASPIRIN 325 MG ECTAB PO SCH (08:24)
[2023-04-01] MEDS: GABAPENTIN 300 MG CAP PO SCH ×3 (08:24→21:03)
[2023-04-01] MEDS: ESCITALOPRAM OXALATE 10 MG TAB PO SCH (08:25)
[2023-04-01] MEDS: TAMSULOSIN HCL 0.4 MG CAP PO SCH (08:25)
[2023-04-01] MEDS: FUROSEMIDE 20 MG TAB PO SCH (08:25)
[2023-04-01] MEDS: MULTIVITAMIN TAB PO SCH (08:25)
[2023-04-01] MEDS: allopurinoL 100 MG TAB PO SCH (08:25)
[2023-04-01] MEDS: PANTOprazole 40 MG TAB PO SCH (08:26)
[2023-04-01] MEDS: POLYETHYLENE (MIRALAX) 17 GM PACK PO SCH (08:26)
[2023-04-01] MEDS: LANTUS PER UNIT CHARGE SQ SCH ×2 (08:37→21:01)
[2023-04-01] MEDS: INSULIN ASPART PER UNIT CHARGE SC SCH ×4 (08:37→21:01)
[2023-04-01 09:29] LABS: Basophils % (auto) 0.7 %; Eosinophils # (auto) 0.26 K/uL (0-0.50); Eosinophils % (auto) 1.8 %; Hematocrit (blood only) 29.6 % (42.0-52.0); Hemoglobin 9.9 g/dl (14.0-18.0); Immature Granulocytes # (auto) 0.14 K/uL (0.01-0.20); Lymphocytes # (auto) 1.44 K/uL (1.2-3.4); Mean Corpuscular Hemoglobin 30.9 pg (25.0-34.0); Mean Corpuscular Hgb Conc 33.4 g/dL (32.0-36.0); Mean Corpuscular Volume 92.5 fL (80.0-100.0); Mean Platelet Volume 9.2 fL (9.4-12.4); Monocytes # (auto) 0.97 K/uL (0.11-0.59); Monocytes % (auto) 6.7 %; Neutrophils # (auto) 11.55 K/uL (1.40-6.50); Neutrophils % (auto) 79.8 %; Platelet Count 400 K/uL (130-400); RDW Coefficient of Variation 13.2 % (11.5-14.5); White Blood Count 14.46 K/ul (4.8-10.8)
[2023-04-01 09:50] LABS: BUN Creatinine Ratio 24.5 (10-20); Calcium 9.1 mg/dl (8.6-10.3); Creatinine Clr Calc Pharmacy 55.5 ml/min; Est GFR (African American) 73.8 ml/min; Est GFR (Non-African American) 63.7 ml/min; Magnesium 1.8 mg/dl (1.7-2.4); Potassium 4.3 mmol/L (3.5-5.1)
[2023-04-01] MEDS: oxyCODONE HCL IR 5 MG TAB (IMMEDIATE RELEASE) PO PRN (11:05)
[2023-04-01] MEDS: MAGNESIUM OXIDE 400 MG TAB PO SCH (12:16)
--- NOTE | 2023-04-01 14:40 | Hospitalist Progress Note ---
Date of Service April 01, 2023 Assessment & Plan (1) Fall: Plan: Ryan So is a 83 year old male who p/w a fall at home after an episode of lightheadedness. He was found to have a fracture of his right humerus and was admitted for treatment of his fracture. Also noted to be hyponatremic. Presyncope/Dizziness -Hx of orthostatic hypotension, suspect this was etiology this episode. He does have NSVT on tele here and should continue on tele monitor-no further episodes since 03/27 -on chronic prednisone and also with hyponatremia--> perhaps some element of adrenal insufficiency contributing? Giving stress dose steroids with decadron an d then converted to prednisone taper back to home dose-continue 10 mg for tonight -ECHO obtained which shows preserved EF, pulm HTN, but no significant valvular disease -EKG with Sinus Bradycardia with RBBB -Consideration could be made for discontinuing tamsulosin if remains orthostatic, but is not orthostatic now -orthostatic vital signs here are negative -PT/OT consults recommend rehab placement (2) Periprosthetic fracture around internal prosthetic joint: Plan: R. Humerus Fracture -Shoulder XR: "comminuted periprosthetic fracture at the distal aspect of the humeral stem component." -Consult orthopedics-now s/p repeat TSA on 03/28 -post op care as per Ortho -pain control with IV dilaudid for severe breakthrough pain, continue oxycodone 5-10mg and tylenol 1000mg po tid scheduled-no longer requiring IV pain medicine -Discussed starting aspirin 325 mg daily for DVT prophylaxis x4 weeks as per orthopedic surgery on 03/31 (3) Hyponatremia: Plan: Na+ 126 on arrival, up to 127 and then back to 124 after 2L NS on admission Baseline sodium around 132-135, but has been decreasing since he started on carbamazepine earlier this year Neurology asked him to taper off of this and he was down to 200 mg once daily prior to admission Urine osmolality high at 530, urine sodium 40. TSH is normal at 4. He is on chronic prednisone with orthostasis episodes as an outpatient as noted above, could have some element of relative adrenal insufficiency. Overall, euvolemic and suspect SIADH and fortunately, this is fairly asymptomatic -Started NaCl 1000 Mg p.o. twice daily -Fluid restrict 1200 mL of free water per day -Na+ now up to 136 -Continue Lasix every other day as per home dosing -Discontinued carbamazepine permanently -Okay to continue escitalopram as he has been on this for a long time -Giving stress dose steroids -follow BMP -will now dc salt tabs and can loosen fluid restriction to 1500 (4) Anemia: Plan: Hemoglobin mildly low at 11.4 on admission and stable from previous, normocytic--> now down to 9.9 post-op with some bruising around fracture site, some blood loss anemia, and some hemodilutional With frequent leukocytosis but also on chronic steroids. Platelets are normal Peripheral smear from 6 months ago without any significant abnormalities-suspect anemia of chronic disease BCR/able and flow cytometry also normal/negative at that time Recent B12 normal, folate normal here now and iron studies normal here Follow CBC again in the morning (5) Frequent PVCs: Plan: With a 10 beat run of nonsustained ventricular tachycardia on 03/27, none since then Checked echo-preserved EF Continue Toprol-XL Continue telemetry monitoring-continues with frequent PVCs and bigeminy but no further V. tach (6) Hypothyroidism: Plan: TSH normal at 4.45 -Continue home dose of levothyroxine (7) GERD (gastroesophageal reflux disease): Plan: Continue home Pepcid and Protonix (8) Cardiomyopathy: Plan: With a history of previous reduced EF heart failure, EF now normalized Follows with cardiology Continue Toprol-XL. He cannot tolerate DONY inhibitor Repeat echocardiogram performed on 03/27 for nonsustained V. tach shows preserved EF and pulmonary hypertension Continue Lasix 20 Mg p.o. every other day (9) Interstitial lung disease: Plan: Not requiring oxygen With crackles at bases on exam Continue CellCept, prednisone with stress dose steroids right now Follows with pulmonology (10) Venous insufficiency: Plan: With history of venous ablation Continue Lasix every other day (11) BPH (benign prostatic hyperplasia): Plan: No acute issues Continue finasteride, tamsulosin Consider discontinuation of tamsulosin given intermittent dizziness with standing/positive orthostatics although orthostatics are now negative (12) Chronic kidney disease, stage III (moderate): Plan: Creatinine at baseline except did go up slightly to 1.5, now back down to 1.0 and stable -Avoid nephrotoxins -renally dose meds when appropriate -follow BMP (13) Migraine: Plan: No improvement with carbamazepine-follows with neurology at [facility] Discontinuing carbamazepine for hyponatremia continue gabapentin (14) DMII (diabetes mellitus, type 2): Plan: hemoglobin A1c well controlled at 7.1% Blood sugars well controlled here Continue basal and bolus insulin but adjusted doses to 35 for CF and 15 for CR Pt asks about going off insulin as outpt--> I think this is reasonable given his advanced age, comorbidities, and excellent control. He used to be on metformin and is not sure why it was stopped at some point--> recommend considering restarting metformin and stopping insulin gradually as outpatient. Would not do this until after he is healed from his shoulder surgery (15) Anxiety: Plan: Continue Lexapro and Xanax Plan DVT prophylaxis-SCDs, aspirin 325 mg p.o. daily x4 weeks Disposition -medically stable for discharge, still awaiting insurance authorization for [place]-hopefully will hear by Sunday Admission and Anticipated Discharge Date Admission Date: March 26, 2023 Subjective Feeling well, pain controlled, moving bowels, making urine. Tele with NSR, IVCD, rates 60s, scattered PACs Physical Exam Constitutional: WD/WN, vitals as above Eyes: + anicteric sclerae Respiratory: normal respiratory effort; no cough Auscultation: lungs clear to auscultation bilaterally and + crackles (Fine at the bases); no rhonchi and no wheezes Cardiovascular: RRR, no murmur, no edema Gastrointestinal (Abdomen): normal bowel sounds, soft, nontender, no hepatosplenomegaly Musculoskeletal: Extremities: + extremities abnormal to inspection (RUE with sling in place, dressings clean dry and intact over shoulder) Skin: Trauma: + evidence of skin trauma (left elbow and dorsal forearm with large skin tears dressingc/d/i) and + hematoma (Bruising over right humerus) Neurologic: moves all extremities; no focal motor deficits and not confused Psychiatric: A+Ox3, euthymic affect Results & Data Results & Data Vital Signs (Past 12 Hours) Vital Signs Temp Pulse Pulse Resp BP Pulse Ox O2 Del Method 04/01/23 11:53 36.7 C 66 20 114/71 97 Room Air 04/01/23 07:26 36.7 C 56 L 18 134/79 97 Room Air 04/01/23 07:22 85 04/01/23 04:00 36.3 C L 63 18 159/76 H 95 Room Air Laboratory Results CBC, BMP magnesium reviewed PG Care Time/CCT Total # of Minutes Spent Total Time Spent with Patient: Total time spent is greater than 50% in coordination of care (as documented) at patient's floor/unit and/or counseling patient: Coding Level of Care Code 82568 SUB INP/OBS CARE 2/35MIN Diagnoses Fall W19.XXXA Periprosthetic fracture around internal prosthetic joint M97.9XXA Hyponatremia E87.1 Anemia D64.9 Frequent PVCs I49.3 Hypothyroidism E03.9 GERD (gastroesophageal reflux disease) K21.9 Cardiomyopathy I42.9 Interstitial lung disease J84.9 Venous insufficiency I87.2 BPH (benign prostatic hyperplasia) N40.0 Lower urinary tract symptom presence: symptoms absent Chronic kidney disease, stage III (moderate) N18.30 Migraine G43.909 DMII (diabetes mellitus, type 2) E11.22; N18.31; Z79.4 Diabetes mellitus termite control representative insulin use: with termite control representative use Diabetes mellitus complication status: with kidney complications Diabetes mellitus complication detail: with chronic kidney disease Chronic kidney disease stage: stage 3 (moderate) Chronic kidney disease stage 3 subtype: stage 3a (GFR 45-59) Anxiety F41.9 (11) BPH (benign prostatic hyperplasia) Lower urinary tract symptom presence: symptoms absent Qualified Code(s): N4 0.0 - Benign prostatic hyperplasia without lower urinary tract symptoms (14) DMII (diabetes mellitus, type 2) Diabetes mellitus termite control representative insulin use: with termite control representative use Diabetes mellitus complication status: with kidney complications Diabetes mellitus complication detail: with chronic kidney disease Chronic kidney disease stage: stage 3 (moderate) Chronic kidney disease stage 3 subtype: stage 3a (GFR 45-59) Qualified Code(s): E11.22 - Type 2 diabetes mellitus with diabetic chronic kidney disease; N18.31 - Chronic kidney disease, stage 3a; Z79.4 - [employer] (current) use of insulin
[2023-04-01] MEDS: ALPRAZolam 0.5 MG TABLET PO SCH (21:01)
[2023-04-01] MEDS: FINASTERIDE 5 MG TAB PO SCH (21:02)
[2023-04-01] MEDS: SENNA 8.6 MG TAB PO SCH (21:02)
[2023-04-01] MEDS: FAMOTIDINE 40 MG TABLET PO SCH (21:02)
[2023-04-01] MEDS: predniSONE 10 MG TABLET PO SCH (21:03)
[2023-04-01] MEDS: METOPROLOL SUCC 25MG EXT REL TAB PO SCH (21:03)
--- NOTE | 2023-04-01 21:54 | Billing Data ---
Date of Service March 26, 2023 Coding Level of Care Code 44148 INT INP/OBS CARE
[2023-04-02] MEDS: LEVOTHYROXINE SODIUM 50 MCG TABLET PO SCH (05:42)
[2023-04-02 07:44] LABS: Calcium 9.3 mg/dl (8.6-10.3); Potassium 4.9 mmol/L (3.5-5.1)
[2023-04-02 07:50] LABS: BUN Creatinine Ratio 23.1 (10-20); Creatinine Clr Calc Pharmacy 50.1 ml/min; Est GFR (African American) 65.5 ml/min; Est GFR (Non-African American) 56.5 ml/min
[2023-04-02] MEDS: MYCOPHENOLATE MOFETIL 250 MG CAP PO SCH ×2 (08:13→20:16)
[2023-04-02] MEDS: DOCUSATE SODIUM 100 MG CAP PO SCH ×2 (08:13→20:18)
[2023-04-02] MEDS: GABAPENTIN 300 MG CAP PO SCH ×3 (08:13→20:17)
[2023-04-02] MEDS: ASPIRIN 325 MG ECTAB PO SCH (08:14)
[2023-04-02] MEDS: MULTIVITAMIN TAB PO SCH (08:14)
[2023-04-02] MEDS: ESCITALOPRAM OXALATE 10 MG TAB PO SCH (08:15)
[2023-04-02] MEDS: TAMSULOSIN HCL 0.4 MG CAP PO SCH (08:15)
[2023-04-02] MEDS: PANTOprazole 40 MG TAB PO SCH (08:15)
[2023-04-02] MEDS: ACETAMINOPHEN 500 MG TAB PO SCH ×3 (08:15→20:19)
[2023-04-02] MEDS: POLYETHYLENE (MIRALAX) 17 GM PACK PO SCH (08:16)
[2023-04-02] MEDS: MAGNESIUM OXIDE 400 MG TAB PO SCH (08:16)
[2023-04-02] MEDS: LANTUS PER UNIT CHARGE SQ SCH ×2 (08:30→20:12)
[2023-04-02] MEDS: INSULIN ASPART PER UNIT CHARGE SC SCH ×4 (08:30→20:23)
[2023-04-02] MEDS: allopurinoL 100 MG TAB PO SCH (08:44)
[2023-04-02] MEDS ORDERED: FUROSEMIDE 20 MG TAB PO ONE (11:19)
--- NOTE | 2023-04-02 18:39 | Hospitalist Progress Note ---
Date of Service April 02, 2023 Assessment & Plan (1) Fall: Plan: Ryan So is a 83 year old male who p/w a fall at home after an episode of lightheadedness. He was found to have a fracture of his right humerus and was admitted for treatment of his fracture. Also noted to be hyponatremic. Presyncope/Dizziness -Hx of orthostatic hypotension, suspect this was etiology this episode. He does have NSVT on tele here and should continue on tele monitor-no further episodes since 03/27 -on chronic prednisone and also with hyponatremia--> perhaps some element of adrenal insufficiency contributing? Giving stress dose steroids with decadron an d then converted to prednisone taper back to home dose -of note, he thought his home dose was 5mg daily but I confirmed with Dr. Mares (PUL) that pt should actually be taking prednisone 10mg daily-perhaps this was contributing to his more recent orthostasis as he was taking too low of a dose -ECHO obtained which shows preserved EF, pulm HTN, but no significant valvular disease -EKG with Sinus Bradycardia with RBBB -Consideration could be made for discontinuing tamsulosin if remains orthostatic, but is not orthostatic anymore-orthostatic vital signs here are negative -PT/OT consults recommend rehab placement (2) Periprosthetic fracture around internal prosthetic joint: Plan: R. Humerus Fracture -Shoulder XR: "comminuted periprosthetic fracture at the distal aspect of the humeral stem component." -Consult orthopedics-now s/p repeat TSA on 03/28 -post op care as per Ortho -pain control with oxycodone 5-10mg and tylenol 1000mg po tid scheduled-no longer requiring opioids -Discussed starting aspirin 325 mg daily for DVT prophylaxis x4 weeks as per orthopedic surgery on 03/31 (3) Hyponatremia: Plan: Na+ 126 on arrival, up to 127 and then back to 124 after 2L NS on admission Baseline sodium around 132-135, but has been decreasing since he started on carbamazepine earlier this year Neurology asked him to taper off of this and he was down to 200 mg once daily prior to admission Urine osmolality high at 530, urine sodium 40. TSH is normal at 4. He is on chronic prednisone with orthostasis episodes as an outpatient as noted above, could have some element of relative adrenal insufficiency. Overall, euvolemic and suspect SIADH and fortunately, this is fairly asymptomatic -Started NaCl 1000 Mg p.o. twice daily and Fluid restricted to 1200 mL of free water per day -Na+ now up to 137 and stable since stopping NaCL -Continue Lasix every other day as per home dosing -Discontinued carbamazepine permanently -Okay to continue escitalopram as he has been on this for a long time -gave stress dose steroids -follow BMP -no need for further salt tabs or fluid restriction now (4) Anemia: Plan: Hemoglobin mildly low at 11.4 on admission and stable from previous, normocytic--> then down to 9.9 post-op with some bruising around fracture site, some blood loss anemia, and some hemodilutional With frequent leukocytosis but also on chronic steroids. Platelets are normal Peripheral smear from 6 months ago without any significant abnormalities-suspect anemia of chronic disease BCR/able and flow cytometry also normal/negative at that time Recent B12 normal, folate normal here now and iron studies normal here Follow CBC occasionally as outpt (5) Frequent PVCs: Plan: With a 10 beat run of nonsustained ventricular tachycardia on 03/27, none since then Checked echo-preserved EF Continue Toprol-XL Continue telemetry monitoring-continues with frequent PVCs and bigeminy but no further V. tach (6) Hypothyroidism: Plan: TSH normal at 4.45 -Continue home dose of levothyroxine (7) GERD (gastroesophageal reflux disease): Plan: Continue home Pepcid and Protonix (8) Cardiomyopathy: Plan: With a history of previous reduced EF heart failure, EF now normalized Follows with cardiology Continue Toprol-XL. He cannot tolerate DONY inhibitor Repeat echocardiogram performed on 03/27 for nonsustained V. tach shows preserved EF and pulmonary hypertension Continue Lasix 20 Mg p.o. every other day and give an extra dose of 20mg po x 1 today for FONTANEZ (9) Interstitial lung disease: Plan: Not requiring oxygen With crackles at bases on exam Continue CellCept, prednisone with stress dose steroids right now Follows with pulmonology (10) Venous insufficiency: Plan: With history of venous ablation Continue Lasix every other day and daily as needed for edema or dyspnea (11) BPH (benign prostatic hyperplasia): Plan: No acute issues Continue finasteride, tamsulosin Consider discontinuation of tamsulosin given intermittent dizziness with standing/positive orthostatics although orthostatics are now negative (12) Chronic kidney disease, stage III (moderate): Plan: Creatinine at baseline except did go up slightly to 1.5, now back down to 1.0 and stable -Avoid nephrotoxins -renally dose meds when appropriate -follow BMP (13) Migraine: Plan: No improvement with carbamazepine-follows with neurology at [facility] Discontinuing carbamazepine for hyponatremia continue gabapentin (14) DMII (diabetes mellitus, type 2): Plan: hemoglobin A1c well controlled at 7.1% Blood sugars well controlled here Continue basal and bolus insulin but adjusted doses to 35 for CF and 15 for CR Pt asks about going off insulin as outpt--> I think this is reasonable given his advanced age, comorbidities, and excellent control. He used to be on metformin and is not sure why it was stopped at some point--> recommend considering restarting metformin and stopping insulin gradually as outpatient. Would not do this until after he is healed from his shoulder surgery (15) Anxiety: Plan: Continue Lexapro and Xanax Plan DVT prophylaxis-SCDs, aspirin 325 mg p.o. daily x4 weeks Disposition -medically stable for discharge, still awaiting insurance auth orization [facility]-family planning on doing family appeal if auth denied Admission and Anticipated Discharge Date Admission Date: March 26, 2023 Subjective No complaints, feeling well except did have some dyspnea with exertion today. Moving bowels, making urine, eating, pain controlled. Tele with NSR, PACs, rates 80s Physical Exam Constitutional: WD/WN, vitals as above Eyes: + anicteric sclerae Respiratory: normal respiratory effort; no cough Auscultation: lungs clear to auscultation bilaterally and + crackles (Fine at the bases); no rhonchi and no wheezes Cardiovascular: RRR, no murmur, no edema Gastrointestinal (Abdomen): normal bowel sounds, soft, nontender, no hepatosplenomegaly Musculoskeletal: Extremities: + extremities abnormal to inspection (RUE with sling in place, dressings clean dry and intact over shoulder) Skin: Trauma: + evidence of skin trauma (left elbow and dorsal forearm with large skin tears dressingc/d/i) and + hematoma (Bruising over right humerus) Neurologic: moves all extremities; no focal motor deficits and not confused Psychiatric: A+Ox3, euthymic affect Results & Data Results & Data Vital Signs (Past 12 Hours) Vital Signs Temp Pulse Pulse Resp BP Pulse Ox O2 Del Method 04/02/23 15:30 36.5 C 72 18 148/76 H 95 Room Air 04/02/23 15:40 69 04/02/23 12:11 36.5 C 85 18 105/64 96 Room Air 04/02/23 09:32 58 L 04/02/23 08:28 36.5 C 63 18 156/83 H 95 Room Air Laboratory Results BMP reviewed PG Care Time/CCT Total # of Minutes Spent Total Time Spent with Patient: Total time spent is greater than 50% in coordination of care (as documented) at patient's floor/unit and/or counseling patient: Coding Level of Care Code 01759 SUB INP/OBS CARE 2/35MIN Diagnoses Fall W19.XXXA Periprosthetic fracture around internal prosthetic joint M97.9XXA Hyponatremia E87.1 Anemia D64.9 Frequent PVCs I49.3 Hypothyroidism E03.9 GERD (gastroesophageal reflux disease) K21.9 Cardiomyopathy I42.9 Interstitial lung disease J84.9 Venous insufficiency I87.2 BPH (benign prostatic hyperplasia) N40.0 Lower urinary tract symptom presence: symptoms absent Chronic kidney disease, stage III (moderate) N18.30 Migraine G43.909 DMII (diabetes mellitus, type 2) E11.22; N18.31; Z79.4 Diabetes mellitus computer terminal operator insulin use: with computer terminal operator use Diabetes mellitus complication status: with kidney complications Diabetes mellitus complication detail: with chronic kidney disease Chronic kidney disease stage: stage 3 (moderate) Chronic kidney disease stage 3 subtype: stage 3a (GFR 45-59) Anxiety F41.9 (11) BPH (benign prostatic hyperplasia) Lower urinary tract symptom presence: symptoms absent Qualified Code(s): N40. 0 - Benign prostatic hyperplasia without lower urinary tract symptoms (14) DMII (diabetes mellitus, type 2) Diabetes mellitus computer terminal operator insulin use: with mcc use Diabetes mellitus complication status: with kidney complications Diabetes mellitus complication detail: with chronic kidney disease Chronic kidney disease stage: stage 3 (moderate) Chronic kidney disease stage 3 subtype: stage 3a (GFR 45-59) Qualified Code(s): E11.22 - Type 2 diabetes mellitus with diabetic chronic kidney disease; N18.31 - Chronic kidney disease, stage 3a; Z79.4 - half-way (current) use of insulin
[2023-04-02] MEDS: ALPRAZolam 0.5 MG TABLET PO SCH (20:13)
[2023-04-02] MEDS: predniSONE 10 MG TABLET PO SCH (20:16)
[2023-04-02] MEDS: METOPROLOL SUCC 25MG EXT REL TAB PO SCH (20:17)
[2023-04-02] MEDS: FAMOTIDINE 40 MG TABLET PO SCH (20:18)
[2023-04-02] MEDS: FINASTERIDE 5 MG TAB PO SCH (20:41)
[2023-04-02] MEDS: SENNA 8.6 MG TAB PO SCH (20:41)
[2023-04-03] MEDS: LEVOTHYROXINE SODIUM 50 MCG TABLET PO SCH (05:36)
[2023-04-03 07:03] LABS: Basophils # (auto) 0.09 K/uL (0-0.2); Basophils % (auto) 0.6 %; Eosinophils # (auto) 0.16 K/uL (0-0.50); Hematocrit (blood only) 30.5 % (42.0-52.0); Hemoglobin 10.3 g/dl (14.0-18.0); Immature Granulocytes # (auto) 0.19 K/uL (0.01-0.20); Immature Granulocytes % (auto) 1.2 %; Lymphocytes # (auto) 1.01 K/uL (1.2-3.4); Lymphocytes % (auto) 6.6 %; Mean Corpuscular Hemoglobin 31.2 pg (25.0-34.0); Mean Corpuscular Hgb Conc 33.8 g/dL (32.0-36.0); Mean Corpuscular Volume 92.4 fL (80.0-100.0); Mean Platelet Volume 9.9 fL (9.4-12.4); Monocytes # (auto) 0.83 K/uL (0.11-0.59); Monocytes % (auto) 5.4 %; Neutrophils # (auto) 13.02 K/uL (1.40-6.50); Neutrophils % (auto) 85.2 %; Platelet Count 428 K/uL (130-400); RDW Coefficient of Variation 13.4 % (11.5-14.5); RDW Standard Deviation 44.8 fL (36.4-46.3)
[2023-04-03 07:17] LABS: Calcium 9.3 mg/dl (8.6-10.3); Magnesium 1.8 mg/dl (1.7-2.4); Potassium 4.6 mmol/L (3.5-5.1)
[2023-04-03 07:22] LABS: BUN Creatinine Ratio 27.8 (10-20); Creatinine Clr Calc Pharmacy 53.2 ml/min; Est GFR (African American) 72.2 ml/min; Est GFR (Non-African American) 62.3 ml/min
[2023-04-03] MEDS: LANTUS PER UNIT CHARGE SQ SCH ×2 (08:48→20:20)
[2023-04-03] MEDS: INSULIN ASPART PER UNIT CHARGE SC SCH ×4 (08:48→20:32)
[2023-04-03] MEDS: allopurinoL 100 MG TAB PO SCH (08:50)
[2023-04-03] MEDS: ACETAMINOPHEN 500 MG TAB PO SCH ×3 (08:50→20:18)
[2023-04-03] MEDS: MULTIVITAMIN TAB PO SCH (08:51)
[2023-04-03] MEDS: MAGNESIUM OXIDE 400 MG TAB PO SCH (08:51)
[2023-04-03] MEDS: ESCITALOPRAM OXALATE 10 MG TAB PO SCH (08:51)
[2023-04-03] MEDS: DOCUSATE SODIUM 100 MG CAP PO SCH ×2 (08:51→20:18)
[2023-04-03] MEDS: MYCOPHENOLATE MOFETIL 250 MG CAP PO SCH ×2 (08:51→20:15)
[2023-04-03] MEDS: FUROSEMIDE 20 MG TAB PO SCH (08:51)
[2023-04-03] MEDS: GABAPENTIN 300 MG CAP PO SCH ×3 (08:51→20:14)
[2023-04-03] MEDS: ASPIRIN 325 MG ECTAB PO SCH (08:51)
[2023-04-03] MEDS: TAMSULOSIN HCL 0.4 MG CAP PO SCH (08:52)
[2023-04-03] MEDS: PANTOprazole 40 MG TAB PO SCH (08:52)
[2023-04-03] MEDS: POLYETHYLENE (MIRALAX) 17 GM PACK PO SCH (08:52)
[2023-04-03] MEDS: guaiFENesin 600 MG TABCR PO SCH ×2 (14:18→20:14)
--- NOTE | 2023-04-03 14:18 | Hospitalist Progress Note ---
Date of Service April 03, 2023 Assessment & Plan (1) Fall: Plan: 2nd to orthostasis in the setting of moderate hyponatremia. I reviewed cardiology records - has long standing intolerance of multiple BP meds + diuretics with dizziness/orthostasis. He was orthostatic at time of admission, and today his BPs lying/sitting/standing were all low-normal. Will cut back metoprolol succ to 12.5mg daily from 25mg. use lasix, if possible, PRN only. Flomax - consider d/c, but has been on such for years. Will leave for now. Cont PT/OT. Consider midodrine if low-normal BPs and orthostasis continue. 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 Tegretol d/c. Serial na levels now normal. Lowest Na level was 126 at admission. BMP am. (4) Anemia: Plan: Peripheral smear from 6 months ago without any significant abnormalities BCR/able and flow cytometry also normal/negative at that time Recent B12 normal, folate normal here now and iron studies normal here H/H stable today (5) Frequent PVCs: Plan: With a 10 beat run of nonsustained ventricular tachycardia on 03/27, none since then Echo this admission with preserved EF and normal LV wall motion Continue Toprol-XL albeit at 12.5mg daily Follows with [facility] cardiology Dr [place] (6) Hypothyroidism: Plan: TSH normal at 4.45 Continue home dose of levothyroxine (7) GERD (gastroesophageal reflux disease): Plan: Continue home Pepcid and Protonix (8) Cardiomyopathy: Plan: With a history of previous reduced EF heart failure, EF now normalized Follows with cardiology - [facility] [place] [facility] - Dr [place] Continue Toprol-XL. He cannot tolerate DONY inhibitor based on records Repeat echocardiogram performed on 03/27 for nonsustained V. tach showed preserved EF and pulmonary hypertension Continue Lasix 20 Mg but use prn - seems that qod dosing leads to mild volume contraction and tendencies towards orthostasis (9) Interstitial lung disease: Plan: Continue CellCept, prednisone with stress dose steroids - give 20mg today due to orthostasis Follows with pulmonology, [facility], Dr Mares Recommend 2-step at d/c (10) Venous insufficiency: Plan: With history of venous ablation by Dr Irizarry Continue Lasix prn (11) BPH (benign prostatic hyperplasia): Plan: No acute issues Continue finasteride, tamsulosin Consider discontinuation of tamsulosin given intermittent orthostasis but leave for now (12) Chronic kidney disease, stage III (moderate): (13) Migraine: Plan: No improvement with carbamazepine-follows with neurology at [facility] Discontinued carbamazepine due to suspected SIADH from such continue gabapentin (14) DMII (diabetes mellitus, type 2): Plan: hemoglobin A1c well controlled at 7.1% Continue basal and bolus insulin (15) Anxiety: Plan: Continue Lexapro and Xanax (16) Orthostasis: Plan: see #1 regarding discussion Plan DVT prophylaxis-SCDs, aspirin 325 mg p.o. daily x4 weeks attempted peer to peer with [facility] - denied for [facility] pt wanting home with home PT/OT/HH updated pt's daughter by phone this evening complex care today including multiple phone calls as above, Rx of #16, etc Admission and Anticipated Discharge Date Admission Date: March 26, 2023 Subjective overall feeling ok right shoulder/arm without pain during the visit a bit dizzy today with standing and even just sitting in the chair eating ok I told him I performed [id number] and unfortunately [facility] was denied he wishes to return home if he can't go to [facility] overnight wnl does c/o mild edema in both legs and mild FONTANEZ - latter at baseline Review of Systems Review of Systems: cv - no chest pain pulm - occasional cough GI - no abd pain Physical Exam Physical Exam: gen - looks good, sitting in chair by window neck - no JVD heart - RRR, s1 s2 lungs - fine, dry rales both bases; no wheeze abd - soft NT ND BS+ musculo - right shoulder/arm in sling; handgrip right 5/5; cap refill right hand brisk ext - 1+ edema b/l legs, pulses 2+ b/l psych - a/o x 3 Results & Data Results & Data Vital Signs (Past 12 Hours) Vital Signs Temp Pulse Pulse Resp BP Pulse Ox O2 Del Method 04/03/23 08:00 Room Air 04/03/23 11:30 36.7 C 66 20 96/55 L 95 Room Air 04/03/23 07:38 36.4 C L 62 18 176/78 H 96 Room Air 04/03/23 07:23 61 04/03/23 04:30 36.3 C L 67 18 178/95 H 96 Room Air Laboratory Results Laboratory Results - last 48 hr 04/02/23 04/02/23 04/02/23 11:57 16:55 20:09 WBC RBC Hgb Hct MCV MCH MCHC RDW Std Deviation RDW Coeff of Graham Plt Count MPV Immature Gran % (Auto) Neut % (Auto) Lymph % (Auto) Pitt % (Auto) Eos % (Auto) Baso % (Auto) Neut # (Auto) Lymph # (Auto) Pitt # (Auto) Eos # (Auto) Baso # (Auto) Immature Gran # (Auto) Sodium Potassium Chloride Carbon Dioxide Anion Gap BUN Creatinine Est Cr Clr Drug Dosing Est GFR ( Amer) Est GFR (Non-Af Amer) BUN/Creatinine Ratio Glucose POC Glucose 122 H 128 H 110 H Calcium Magnesium 04/03/23 04/03/23 04/03/23 06:04 06:04 12:16 WBC 15.30 H RBC 3.30 L Hgb 10.3 L Hct 30.5 L MCV 92.4 MCH 31.2 MCHC 33.8 RDW Std Deviation 44.8 RDW Coeff of Graham 13.4 Plt Count 428 H MPV 9.9 Immature Gran % (Auto) 1.2 Neut % (Auto) 85.2 Lymph % (Auto) 6.6 Pitt % (Auto) 5.4 Eos % (Auto) 1.0 Baso % (Auto) 0.6 Neut # (Auto) 13.02 H Lymph # (Auto) 1.01 L Pitt # (Auto) 0.83 H Eos # (Auto) 0.16 Baso # (Auto) 0.09 Immature Gran # (Auto) 0.19 Sodium 136 Potassium 4.6 Chloride 102 Carbon Dioxide 26 Anion Gap 8 BUN 30 H Creatinine 1.08 Est Cr Clr Drug Dosing 53.2 Est GFR ( Amer) 72.2 Est GFR (Non-Af Amer) 62.3 BUN/Creatinine Ratio 27.8 H Glucose 131 H POC Glucose 108 H Calcium 9.3 Magnesium 1.8 PG Care Time/CCT Total # of Minutes Spent Total Time Spent with Patient: Total time spent is greater than 50% in coordination of care (as documented) at patient's floor/unit and/or counseling patient: Coding Level of Care Code 92025 SUB INP/OBS CARE 3/50MIN Diagnoses Fall W19.XXXA Periprosthetic fracture around internal prosthetic joint M97.9XXA Hyponatremia E87.1 Anemia D64.9 Frequent PVCs I49.3 Hypothyroidism E03.9 GERD (gastroesophageal reflux disease) K21.9 Cardiomyopathy I42.9 Interstitial lung disease J84.9 Venous insufficiency I87.2 BPH (benign prostatic hyperplasia) N40.0 Lower urinary tract symptom presence: symptoms absent Chronic kidney disease, stage III (moderate) N18.30 Migraine G43.909 DMII (diabetes mellitus, type 2) E11.22; N18.31; Z79.4 Chronic kidney disease stage: stage 3 (moderate) Chronic kidney disease stage 3 subtype: stage 3a (GFR 45-59) Diabetes mellitus complication detail: with chronic kidney disease Diabetes mellitus complication status: with kidney complications Diabetes mellitus tenter insulin use: with tenter use Anxiety F41.9 Orthostasis I95.1 (11) BPH (benign prostatic hyperplasia) Lower urinary tract symptom presence: symptoms absent Qualified Code(s): N40.0 - Benign prostatic hyperplasia without lower urinary tract symptoms (14) DMII (diabetes mellitus, type 2) Chronic kidney disease stage: stage 3 (moderate) Chronic kidney disease stage 3 subtype: stage 3a (GFR 45-59) Diabetes mellitus complication detail: with chronic kidney disease Diabetes mellitus complication status: with kidney complications Diabetes mellitus senior care insulin use: with senior care use Qualified Code(s): E11.22 - Type 2 diabetes mellitus with diabetic chronic kidney disease; N18.31 - Chronic kidney disease, stage 3a; Z79.4 - MCC (current) use of insulin
--- NOTE | 2023-04-03 16:29 | Ultrasound Report ---
BILATERAL LOWER EXTREMITY VENOUS DOPPLER HISTORY: Bilateral lower extremity edema, recent surgery, eval DVT COMPARISON STUDY: None. FINDINGS: There is normal compressibility, flow, and augmentation within the bilateral lower extremit y deep venous systems. IMPRESSION: No DVT within the right or left lower extremity. ACT 112: Negative or not required by law. Electronically signed by: Artis Ledesma M.D. 04/03/2023 4:27 PM
[2023-04-03] MEDS: SENNA 8.6 MG TAB PO SCH (20:00)
[2023-04-03] MEDS: ALPRAZolam 0.5 MG TABLET PO SCH (20:14)
[2023-04-03] MEDS: FINASTERIDE 5 MG TAB PO SCH (20:18)
[2023-04-03] MEDS: FAMOTIDINE 40 MG TABLET PO SCH (20:20)
[2023-04-03] MEDS ORDERED: METOPROLOL SUCC 25MG EXT REL TAB PO SCH (21:00)
[2023-04-03] MEDS ORDERED: predniSONE 20 MG TAB PO SCH (21:00)
[2023-04-04] MEDS: LEVOTHYROXINE SODIUM 50 MCG TABLET PO SCH (05:34)
[2023-04-04 07:58] LABS: Hemoglobin 9.7 g/dl (14.0-18.0); Mean Corpuscular Hemoglobin 31.2 pg (25.0-34.0); Mean Corpuscular Hgb Conc 33.4 g/dL (32.0-36.0); Mean Corpuscular Volume 93.2 fL (80.0-100.0); Mean Platelet Volume 9.6 fL (9.4-12.4); Platelet Count 458 K/uL (130-400); RDW Coefficient of Variation 13.6 % (11.5-14.5); RDW Standard Deviation 45.1 fL (36.4-46.3); Red Blood Count 3.11 M/uL (4.70-6.10); White Blood Count 13.17 K/ul (4.8-10.8)
[2023-04-04] MEDS: ACETAMINOPHEN 500 MG TAB PO SCH ×3 (08:16→22:01)
[2023-04-04] MEDS: GABAPENTIN 300 MG CAP PO SCH ×3 (08:17→22:02)
[2023-04-04] MEDS: DOCUSATE SODIUM 100 MG CAP PO SCH ×2 (08:17→22:02)
[2023-04-04] MEDS: guaiFENesin 600 MG TABCR PO SCH ×2 (08:17→22:04)
[2023-04-04] MEDS: MYCOPHENOLATE MOFETIL 250 MG CAP PO SCH ×2 (08:17→22:03)
[2023-04-04] MEDS: MAGNESIUM OXIDE 400 MG TAB PO SCH (08:18)
[2023-04-04] MEDS: allopurinoL 100 MG TAB PO SCH (08:18)
[2023-04-04] MEDS: MULTIVITAMIN TAB PO SCH (08:18)
[2023-04-04] MEDS: ASPIRIN 325 MG ECTAB PO SCH (08:18)
[2023-04-04 08:19] LABS: BUN Creatinine Ratio 25.2 (10-20); Calcium 9.2 mg/dl (8.6-10.3); Creatinine Clr Calc Pharmacy 45.3 ml/min; Est GFR (African American) 59.3 ml/min; Est GFR (Non-African American) 51.2 ml/min; Potassium 4.5 mmol/L (3.5-5.1)
[2023-04-04] MEDS: PANTOprazole 40 MG TAB PO SCH (08:19)
[2023-04-04] MEDS: TAMSULOSIN HCL 0.4 MG CAP PO SCH (08:19)
[2023-04-04] MEDS: ESCITALOPRAM OXALATE 10 MG TAB PO SCH (08:19)
[2023-04-04] MEDS: POLYETHYLENE (MIRALAX) 17 GM PACK PO SCH (08:19)
[2023-04-04] MEDS: LANTUS PER UNIT CHARGE SQ SCH ×2 (08:23→22:01)
[2023-04-04] MEDS: INSULIN ASPART PER UNIT CHARGE SC SCH ×4 (08:23→21:40)
[2023-04-04] MEDS: MIDODRINE HCL 2.5 MG TAB PO SCH ×3 (10:31→18:04)
[2023-04-04] MEDS ORDERED: METOPROLOL TARTRATE 25 MG TAB PO ONE (14:50)
[2023-04-04] MEDS ORDERED: predniSONE 10 MG TABLET PO SCH (21:00)
[2023-04-04] MEDS ORDERED: METOPROLOL SUCC 25MG EXT REL TAB PO SCH (21:00)
--- NOTE | 2023-04-04 21:28 | Hospitalist Progress Note ---
Date of Service April 04, 2023 Assessment & Plan (1) Orthostasis: Plan: patient has had well documented orthostasis leading to dizziness/lightheadedness over the years. outpatient clinic records speak to this chronic issue. he had +orthostatics early in the stay; the orthostasis resolved; then he developed dizziness once again yesterday. orthostatics were + at that time. even this am he still had about a 20 point drop in BP. any time that we challenge him with additional diuretics for his LE edema this worsens the orthostasis. thus, started midodrine 2.5mg TID this am. Orthostatics this afternoon MUCH better. will cont midodrine. resume metoprolol succ 25mg HS. lasix qod for now. resume chronic dose of prednisone 10mg daily. watch for 24 hours on the above regimen and if BPs remain stable can d/c home. (2) Fall: Plan: 2nd to orthostasis in the setting of moderate hyponatremia at time of admission. I reviewed cardiology records - has long standing intolerance of multiple BP meds + diuretics with dizziness/orthostasis. He was orthostatic at time of admission, and yesterday his BPs lying/sitting/standing were all low-normal. Flomax - consider d/c, but has been on such for years. Will leave for now. Cont PT/OT. see #1 re: midodrine. (3) Frequent PVCs: Plan: Had 10 beat run of nonsustained ventricular tachycardia on 03/27/23. Echo this admission with preserved EF and normal LV wall motion Typically is on metoprolol succ 25mg daily. Follows with [facility] [place] cardiology Dr South. His metoprolol was HELD last pm. As a result he has had FREQUENT PVCs overnight/today. I reviewed his case with oncall cardiology Dr Moise who recommended we consult Dr South in the am tomorrow. Cont tele. Cont metoprolol succ 25mg HS. Fortunately does not have symptoms from the PVCs. 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 Tegretol d/c. Serial na levels now normal. Lowest Na level was 126 at admission. Na today 137. BMP am. (6) Anemia: Plan: Peripheral smear from 6 months ago without any significant abnormalities BCR/able and flow cytometry also normal/negative at that time Recent B12 normal, folate normal here now and iron studies normal here H/H remain stable (7) Hypothyroidism: Plan: TSH normal at 4.45 Continue home dose of levothyroxine (8) GERD (gastroesophageal reflux disease): Plan: Continue home Pepcid and Protonix (9) Cardiomyopathy: Plan: With a history of previous reduced EF heart failure, EF now normalized Follows with cardiology - [facility] - Dr South Continue Toprol-XL. He cannot tolerate DONY inhibitor based on records Repeat echocardiogram performed on 03/27 for nonsustained V. tach showed preserved EF and pulmonary hypertension (moderate) Continue Lasix 20 Mg QOD (10) Interstitial lung disease: Plan: Continue CellCept, prednisone with stress dose steroids - wean back to 10mg HS tonight (chronic dose) Follows with pulmonology, [facility], Dr Mares Recommend 2-step at d/c - will order in am tomorrow (11) Venous insufficiency: Plan: With history of venous ablation by Dr Irizarry Continue Lasix QOD Despite his edema he otherwise does not examine in CHF (12) BPH (benign prostatic hyperplasia): Plan: No acute issues Continue finasteride, tamsulosin Consider discontinuation of tamsulosin given intermittent orthostasis but leave for now (13) Chronic kidney disease, stage III (moderate): (14) Migraine: Plan: No improvement with carbamazepine-follows with neurology at [facility] Discontinued carbamazepine due to suspected SIADH from such continue gabapentin has not c/o headaches to me this week (15) DMII (diabetes mellitus, type 2): Plan: hemoglobin A1c well controlled at 7.1% Continue basal and bolus insulin (16) Anxiety: Plan: Continue Lexapro and Xanax Plan DVT prophylaxis-SCDs, aspirin 325 mg p.o. daily x4 weeks attempted peer to peer with lópez - denied for [facility] pt wanting home with home PT/OT/HH updated pt's daughter at bedside today hopefully home tomorrow Admission and Anticipated Discharge Date Admission Date: March 26, 2023 Subjective overnight the pt's metoprolol succinate was held since then he has had frequent PVCs on monitor with numerous runs of wide complex rhythm (rates <100 BPM) no a.fib seen no symptoms from anything seen on monitoring during the visit he was sitting in the chair daughter was visiting he was slightly upset/agitated that he wasn't leaving hospital today dizziness resolved orthostasis improved today with addition of midodrine this am denies any change in chronic pulmonary symptoms (cough, dyspnea on exertion, etc) Review of Systems Review of Systems: gen - no fevers, eating well cv - no chest pain; edema remains - similar to yesterday pulm - no change in FONTANEZ or cough musculo - right shoulder - no pain today GI - no n/v/pain Physical Exam Physical Exam: gen - looks good, sitting in chair by window, little upset today about having to stay 1 more night neck - no JVD sitting upright at 90 degrees heart - RRR, s1 s2, 2/6 systolic murmur LSB lungs - fine, dry rales both bases - worse on right; mild wheezes on left abd - soft NT ND BS+ musculo - right shoulder/arm in sling; handgrip right 5/5; cap refill right hand brisk ext - 1+ edema b/l legs (maybe slightly worse today), pulses 2+ b/l psych - a/o x 3 Results & Data Results & Data Vital Signs (Past 12 Hours) Vital Signs Temp Pulse Pulse Resp BP Pulse Ox O2 Del Method 04/04/23 19:00 36.7 C 70 20 134/71 95 Room Air 04/04/23 16:14 36.5 C 70 20 174/84 H 94 Room Air 04/04/23 15:00 71 04/04/23 11:32 36.6 C 82 19 121/74 94 Room Air Laboratory Results Laboratory Results - last 24 hr 04/04/23 04/04/23 04/04/23 06:31 06:31 07:38 WBC 13.17 H RBC 3.11 L Hgb 9.7 L Hct 29.0 L MCV 93.2 MCH 31.2 MCHC 33.4 RDW Std Deviation 45.1 RDW Coeff of Graham 13.6 Plt Count 458 H MPV 9.6 Sodium 137 Potassium 4.5 Chloride 103 Carbon Dioxide 26 Anion Gap 8 BUN 32 H Creatinine 1.27 Est Cr Clr Drug Dosing 45.3 Est GFR ( Amer) 59.3 Est GFR (Non-Af Amer) 51.2 BUN/Creatinine Ratio 25.2 H Glucose 139 H POC Glucose 129 H Calcium 9.2 04/04/23 04/04/23 04/04/23 11:39 16:36 20:08 WBC RBC Hgb Hct MCV MCH MCHC RDW Std Deviation RDW Coeff of Graham Plt Count MPV Sodium Potassium Chloride Carbon Dioxide Anion Gap BUN Creatinine Est Cr Clr Drug Dosing Est GFR ( Amer) Est GFR (Non-Af Amer) BUN/Creatinine Ratio Glucose POC Glucose 141 H 154 H 115 H Calcium PG Care Time/CCT Total # of Minutes Spent Total Time Spent with Patient: Total time spent is greater than 50% in coordination of care (as documented) at patient's floor/unit and/or counseling patient: Coding Level of Care Code 80570 SUB INP/OBS CARE 2/35MIN Diagnoses Orthostasis I95.1 Fall W19.XXXA Frequent PVCs I49.3 Periprosthetic fracture around internal prosthetic joint M97.9XXA Hyponatremia E87.1 Anemia D64.9 Hypothyroidism E03.9 GERD (gastroesophageal reflux disease) K21.9 Cardiomyopathy I42.9 Interstitial lung disease J84.9 Venous insufficiency I87.2 BPH (benign prostatic hyperplasia) N40.0 Lower urinary tract symptom presence: symptoms absent Chronic kidney disease, stage III (moderate) N18.30 Migraine G43.909 DMII (diabetes mellitus, type 2) E11.22; N18.31; Z79.4 Chronic kidney disease stage: stage 3 (moderate) Chronic kidney disease stage 3 subtype: stage 3a (GFR 45-59) Diabetes mellitus complication detail: with chronic kidney disease Diabetes mellitus complication status: with kidney complications Diabetes mellitus [facility] insulin use: with [facility] use Anxiety F41.9 (12) BPH (benign prostatic hyperplasia) Lower urinary tract symptom presence: symptoms absent Qualified Code(s): N40.0 - Benign prostatic hyperplasia without lower urinary tract symptoms (15) DMII (diabetes mellitus, type 2) Chronic kidney disease stage: stage 3 (moderate) Chronic kidney disease stage 3 subtype: stage 3a (GFR 45-59) Diabetes mellitus complication detail: with chronic kidney disease Diabetes mellitus complication status: with kidney complications Diabetes mellitus [facility] insulin use: with [facility] use Qualified Code(s): E11.22 - Type 2 diabetes mellitus with diabetic chronic kidney disease; N18.31 - Chronic kidney disease, stage 3a; 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
[2023-04-04] MEDS: FINASTERIDE 5 MG TAB PO SCH (22:02)
[2023-04-04] MEDS: FAMOTIDINE 40 MG TABLET PO SCH (22:02)
[2023-04-04] MEDS: SENNA 8.6 MG TAB PO SCH (22:03)
[2023-04-04] MEDS: NYSTATIN SUSP 500,000 U/5 ML UDC PO SCH (22:05)
[2023-04-04] MEDS: ALPRAZolam 0.5 MG TABLET PO SCH (23:26)
[2023-04-05] MEDS: LEVOTHYROXINE SODIUM 50 MCG TABLET PO SCH (05:49)
[2023-04-05 07:17] LABS: BUN Creatinine Ratio 25.4 (10-20); Calcium 9.3 mg/dl (8.6-10.3); Creatinine Clr Calc Pharmacy 49.1 ml/min; Est GFR (African American) 64.8 ml/min; Est GFR (Non-African American) 55.9 ml/min; Potassium 4.7 mmol/L (3.5-5.1)
[2023-04-05] MEDS: guaiFENesin 600 MG TABCR PO SCH (07:39)
[2023-04-05] MEDS: GABAPENTIN 300 MG CAP PO SCH ×2 (07:40→13:40)
[2023-04-05] MEDS: MYCOPHENOLATE MOFETIL 250 MG CAP PO SCH (07:40)
[2023-04-05] MEDS: DOCUSATE SODIUM 100 MG CAP PO SCH (07:40)
[2023-04-05] MEDS: PANTOprazole 40 MG TAB PO SCH (07:41)
[2023-04-05] MEDS: TAMSULOSIN HCL 0.4 MG CAP PO SCH (07:41)
[2023-04-05] MEDS: ACETAMINOPHEN 500 MG TAB PO SCH ×2 (07:41→13:40)
[2023-04-05] MEDS: MULTIVITAMIN TAB PO SCH (07:42)
[2023-04-05] MEDS: ESCITALOPRAM OXALATE 10 MG TAB PO SCH (07:42)
[2023-04-05] MEDS: allopurinoL 100 MG TAB PO SCH (07:42)
[2023-04-05] MEDS: POLYETHYLENE (MIRALAX) 17 GM PACK PO SCH (07:42)
[2023-04-05] MEDS: MIDODRINE HCL 2.5 MG TAB PO SCH ×3 (07:43→16:41)
[2023-04-05] MEDS: ASPIRIN 325 MG ECTAB PO SCH (07:43)
[2023-04-05] MEDS: MAGNESIUM OXIDE 400 MG TAB PO SCH (07:43)
[2023-04-05] MEDS: FUROSEMIDE 20 MG TAB PO SCH (08:25)
[2023-04-05] MEDS: INSULIN ASPART PER UNIT CHARGE SC SCH ×2 (08:30→12:10)
[2023-04-05] MEDS: LANTUS PER UNIT CHARGE SQ SCH (08:30)
[2023-04-05] MEDS: NYSTATIN SUSP 500,000 U/5 ML UDC PO SCH ×2 (08:32→12:11)
--- NOTE | 2023-04-05 16:19 | Cardiology Consultation ---
Date of Consultation April 05, 2023 Assessment & Plan (1) Accelerated idioventricular rhythm: (2) PVCs (premature ventricular contractions): (3) Edema: (4) Cardiomyopathy: (5) Venous insufficiency: (6) Syncope and collapse: Plan ASSESSMENT/PLAN: 1. AIVR/PVCs: Known issue based on monitoring done in 2019. Repeat monitor in 2021 with less AIVR, while on beta-juanjose. Resume and continue home beta- juanjose dose. He is completely asymptomatic in this regard. No specific change in management recommended at this time. 2. Syncope: He reports syncope to me but on history and physical, denied loss of consciousness. May have been orthostatic in nature after he had been sitting in a chair and then got up. Cannot rule out other etiology. Nothing on telemetry new to suggest arrhythmia but if he has recurrence or near recurrence, would recommend to monitor +/- loop recorder. Thus far has been doing better after midodrine was initiated for documented orthostatic hypotension. 2. Orthostatic hypotension: Now on midodrine. Can continue. Avoid midodrine if laying for long periods of time. 3. Edema: Has known venous insufficiency. Can continue home dose of diuretic. Recommend that he elevate feet while sitting. His feet have been down for several days, even overnight at times while sleeping in a chair. Has undergone venous ablation with Dr. Irizarry for the right lower extremity. Recommend compression stockings, discussed with him in detail, specifically thigh-high if possible. His daughter offered to assist him as he will be unable to place them and take them off with his right arm fracture. Low-sodium diet. More aggressive diuretic in the outpatient setting caused acute kidney injury in the past. 4. Cardiomyopathy: LV systolic function has normalized. He did not tolerate DONY inhibitor. Continue metoprolol succinate. Losartan had been removed by his PCP in the past. Spironolactone discontinued in the past due to orthostatic symptoms. 5. Interstitial lung disease: Follow with pulmonology. 6. Disposition: Can be discharged home from a cardiac perspective. Follow-up in 1 to 2 weeks in the outpatient setting with Mr. Warren (requested from outpatient scheduling). Patient care communicated with Dr. Urias of the primary hospitalist service. Thank you for allowing me to participate in the care of your patient. Please call for any other questions or concerns. Sincerely, Delvis Wesley M.D. History of Present Illness Reason for Consultation: "Abnormal rhythm on telemetry; orthostasis; etc." Requesting Physician: Nitin Urias MD Attending Physician: Nitin Urias MD History of Present Illness Mr. So is a very pleasant 83-year-old gentleman with a history significant for cardiomyopathy, PVCs, AIVR, dyslipidemia, GERD, Schatzki's ring status post dilation (July 2019) esophageal ulcers, interstitial lung disease, and right foot osteomyelitis status post surgery. He has had the following studies/procedures: 1. Echo 07/31/2019: Moderately dilated LV with moderately reduced systolic function. EF 35%. Akinesis of the inferolateral wall, otherwise global hypokinesis. Moderate LVH. Mild left atrial dilation. Sclerotic aortic valve. Mild to moderate MR. Normal RVSP. Compared to 10/22/2015 echo, LV systolic function now moderately reduced with wall motion abnormality. 2. Holter 08/07/2019: Sinus rhythm 70 bpm, 46-102 bpm. Occasional PACs and atrial couplets. Isolated nonsustained atrial tachycardia/ectopic atrial rhythm up to 7 beats in duration. Frequent PVCs and ventricular couplets. Frequent episodes of AIVR up to 47 beats in duration. Ventricular ectopy/arrhythmia represented 14% of recorded beats. No diary submitted. 3. CTA chest 04/21/2020: No PE. Mild adenopathy. Bilateral mixed interstitial and alveolar opacities with subpleural distribution concerning for developing idiopathic interstitial lung disease. 4. Right lower extremity venous reflux duplex 05/18/2020: Right GSV varices and dilated in the high thigh, showing reflux. Right superficial saphenous vein with partial thrombus in proximal segment without reflux. No DVT. Right greater saphenous vein endovenous ablation could be considered. 5. PFT's 05/20/2020: Moderate restrictive physiology without bronchodilator response. DLCO reduced. 6. Right GSV Venaseal 10/05/2020 7. Echo 05/11/2021 [facility]: Normal LV size and systolic function. EF 55-60%. Abnormal septal motion consistent with conduction abnormality. Mildly reduced RV systolic function. No significant valvular pathology. 8. PFT's 12/21/2021: Moderate restriction without bronchodilator response. Reduced DLCO. 9. Echo 06/09/2022 [facility]: Normal LV size. EF 65 to 70%. Septal motion consistent with conduction abnormality. Moderate LVH. Normal RV size and systolic function. Sclerotic aortic valve without stenosis. Mild to moderate MR. RVSP > 40. 10. Event monitor 06/25/2022 to 07/24/2022: Sinus rhythm. Possible short atrial run (artifact). PVCs and PACs. No reported symptoms. 11. PFTs 01/11/2023: Moderate restrictive physiology with decreased diffusion capacity. Compared to May 2020 PFTs, significant reduction in both FEV1 and FVC and DLCO. He was admitted on 03/26/2023 after a syncopal episode that led to right humerus fracture. According to history and physical, he had been sitting outside and then got up from his chair and felt very dizzy. He went to turn and fell to the ground and reported that he did not lose consciousness. When discussed with him today, he states that he was sitting in the lawn on a lawn chair, got up and moved around before having a syncopal episode, completely losing consciousness. When he awoke, he found himself on the ground and laid there for 30 to 40 minutes in pain until his neighbor came home and saw him laying in the yard. He states that he has experienced positional lightheadedness, when changing positions. Dyspnea with exertion overall has improved and denies any recent shortness of breath leading up to his hospital stay. He can experience dyspnea if he performs more strenuous exercise. His edema has been reasonably controlled as an outpatient and he states that he had very little or no edema on presentation but has since developed much more significant edema. While here, he has received normal saline IV and has been sitting mostly in the chair throughout the day and even at night, often sleeping in the chair with his feet down. His feet has not been elevated and he has not been wearing compression stockings. He was seen in the office setting by me on 03/09/2023 and he had trace to 1+ right lower extremity pitting edema and trace edema involving the left lower extremity. He very much would like to go home today and was hoping to go home prior to being seen this afternoon. During this hospital stay, metoprolol had been held and and placed on midodrine by primary hospitalist service, with improvement of orthostatic values per on telemetry, had demonstrated more frequent PVCs and AIVR, but no ventricular tac hycardia. Predominantly, the rhythm has been sinus however. He has been asymptomatic with his ventricular ectopy and AIVR. These are issues that have been identified in the past with outpatient monitoring and he has been consistently asymptomatic. He was noted to have orthostatic vital signs while here. He was placed on midodrine and orthostatic vital signs have improved per Dr. Urias. Review of systems: As above. Family history: Father at 64 but had CABG in mid 50s. Paternal uncles all had CAD diagnosed in 50s. He has brothers with no known CAD. Social history:He does not smoke. Quit consuming alcohol in 1969. He is a . His in 2019. He has 1 son and 2 daughters. 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 His daughter, Annmarie, presented to the bedside. Allergies Allergy/AdvReac Type Severity Reaction Status Date / Time Sulfa (Sulfonamide Allergy Severe RASH, Verified 03/26/23 21:14 Antibiotics) HIVES, SWOLLEN MOUTH, THROAT SWELLING lisinopril Allergy Intermediate lethargic Verified 03/26/23 21:14 Penicillins Allergy Intermediate RASH, HIVES Verified 03/26/23 21:14 Home Medications Medication Instructions Recorded Confirmed Type famotidine 40 mg tablet (Pepcid) 40 mg PO HS 11/02/20 03/26/23 History insulin degludec 100 unit/mL (3 10 unit subcut QAM 01/31/21 03/26/23 History mL) subcutaneous pen (Tresiba FlexTouch U-100 insulin) insulin lispro 100 unit/mL 6 unit subcut QPM 01/31/21 03/26/23 History subcutaneous solution (Humalog U-100 Insulin) metoprolol succinate 25 mg 25 mg PO QPM 02/28/22 03/26/23 History tablet,extended release 24 hr pen needle, diabetic 32 gauge x #100 ea 12/21/22 02/13/23 Rx 532" (BD Ultra-Fine Vale Pen Needle) gabapentin 300 mg capsule 300 mg PO TID #90 caps 01/31/23 03/26/23 Rx mycophenolate mofetil 250 mg 250 mg PO BID #120 caps 01/31/23 03/26/23 Rx capsule (CellCept) blood-glucose meter,continuous #1 ea 02/13/23 02/13/23 Rx (Dexcom G7 Bulk Mail Clerk) blood-glucose sensor (Dexcom G7 #1 ea 02/13/23 02/13/23 Rx Sensor device) omeprazole 40 mg capsule,delayed 40 mg PO DAILY 02/13/23 03/26/23 History release guaifenesin 600 mg tablet, 600 mg PO Q12H PRN congestion #30 02/20/23 03/26/23 Rx extended release 12 hr (Mucinex) tabs allopurinol 100 mg tablet 100 mg PO DAILY #90 tabs 03/23/23 03/26/23 Rx alprazolam 0.5 mg tablet (Xanax) 0.25 mg PO PM #15 tabs 03/23/23 03/26/23 Rx escitalopram oxalate 10 mg tablet 10 mg PO QAM #90 tabs 03/23/23 03/26/23 Rx (Lexapro) levothyroxine 50 mcg capsule 50 mcg PO QAM #90 caps 03/23/23 03/26/23 Rx finasteride 5 mg tablet (Proscar) 5 mg PO QPM 03/26/23 03/26/23 History furosemide 20 mg tablet 20 mg PO Q2D 03/27/23 03/27/23 History Oxygen Home #1 ea 04/05/23 Rx acetaminophen 500 mg tablet 1,000 mg PO TID #30 tabs 04/05/23 Rx (Tylenol Extra Strength) aspirin 81 mg tablet,delayed 81 mg PO BID 30 days #60 tabs 04/05/23 Rx release midodrine 2.5 mg tablet 2.5 mg PO TID@0800,1200,1700 #90 04/05/23 Rx tabs nystatin 100,000 unit/mL oral 5 ml PO QID 5 days #100 mL 04/05/23 Rx suspension oxycodone 5 mg tablet 5 mg PO Q6H PRN pain #10 tabs 04/05/23 Rx prednisone 10 mg tablet 10 mg PO DAILY #30 tabs 04/05/23 Rx Patient History Medical History Accelerated idioventricular rhythm Asymptomatic. Beta-juanjose has been initiated since Holter monitor per cardio records Anxiety Aortic stenosis Mild AV stenosis on 10/15/20 ECHO "AV opens well" on 05/11/21 ECHO -Per 08/2021 cardio note- noted in 2019 - no significant stenosis on most recent ECHO- known sclerotic AV- "no significant stenosis" Cardiomyopathy LV systolic function has normalized. Etiology of CM unknown. Cervical spondylosis Cough DMII (diabetes mellitus, type 2) Frequent PVCs FOLLOWED BY DR. WESLEY GERD (gastroesophageal reflux disease) Relatively controlled with medication (improved from previous) Hx of esophageal ulcer Hx of gout Controlled with Allopurinol Hx of melanoma of skin RT EAR Hyperlipidemia Hypothyroidism Interstitial lung disease "HAS NOT USED INHALER FOR A LONG TIME" Breathing stable at rest- mild FONTANZE with long walks (chronic and unchanged) Low iron Anemia stable per patient Schatzki's ring No dysphagia Venous insufficiency Surgical History H/O foot surgery RT FOOT History of amputation of toe RT FIFTH TOE - 08/06/19 [facility] [place] History of bilateral knee replacement History of cardiac cath no stents>YEARS AGO AT [facility] History of colonoscopy History of esophagogastroduodenoscopy (EGD) with dilation History of tonsillectomy and adenoidectomy History of wisdom tooth extraction S/P dilatation of esophageal stricture Status post reverse total arthroplasty of right shoulder Family History Father Family history of diabetes mellitus Coronary heart disease Prostate cancer Myocardial infarction Uncle Coronary heart disease Sister Breast cancer Other No family history of adverse response to anesthesia Denies family history of Ovarian cancer Colorectal cancer Social History Smoking Status: Never smoker Second Hand Exposure: No; Do You Dip or Chew Tobacco: No; Hx Alcohol Use: No Hx Substance Use: No Preferred Language: Kiswahili Communication Ability: Effective Visual Impairment: No Limitations Hearing Ability: Normal Printer 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 Alert. HEENT: Anicteric sclera. Neck: No JVD. No hepatojugular reflux noted. Cardiac: No ventricular heave. Regular. No ectopy. Normal S1-S2. 2/6 early peaking systolic ejection murmur. No rubs or gallops. Pulmonary: Bibasilar crackles (chronic). Abdomen: Soft, nontender, nondistended, with normoactive bowel sounds. No bruits noted. Extremities: 2+ radial pulses bilaterally. 2+ posterior tibialis pulses bilaterally. 3+ right lower extremity edema. 2+ left lower extremity edema. No cyanosis. Results & Data Vital Signs (Past 12 Hours) Vital Signs Temp Pulse Pulse Pulse Pulse Pulse Pulse 04/05/23 16:15 36.4 C L 64 04/05/23 15:27 58 L 04/05/23 14:32 36.4 C L 64 04/05/23 12:01 36.5 C 66 04/05/23 10:54 80 85 80 65 04/05/23 07:30 04/05/23 07:38 36.4 C L 04/05/23 07:00 60 Resp Resp Resp Resp Resp BP BP 04/05/23 16:15 18 128/76 127/78 04/05/23 15:27 04/05/23 14:32 18 128/76 04/05/23 12:01 20 111/72 04/05/23 10:54 18 20 18 18 04/05/23 07:30 04/05/23 07:38 18 04/05/23 07:00 Pulse Ox Pulse Ox Pulse Ox Pulse Ox Pulse Ox O2 Del Method O2 Flow Rate 04/05/23 16:15 95 04/05/23 15:27 04/05/23 14:32 95 Room Air 04/05/23 12:01 92 Room Air 04/05/23 10:54 92 85 L 92 95 2 04/05/23 07:30 Room Air 04/05/23 07:38 94 Room Air 04/05/23 07:00 Laboratory Results Laboratory Results - last 24 hr 04/04/23 04/04/23 04/05/23 16:36 20:08 05:59 Sodium 136 Potassium 4.7 Chloride 103 Carbon Dioxide 26 Anion Gap 7 BUN 30 H Creatinine 1.18 Est Cr Clr Drug Dosing 49.1 Est GFR ( Amer) 64.8 Est GFR (Non-Af Amer) 55.9 BUN/Creatinine Ratio 25.4 H Glucose 141 H POC Glucose 154 H 115 H Calcium 9.3 25-OH Vitamin D Total 04/05/23 04/05/23 04/05/23 07:40 11:44 15:16 Sodium Potassium Chloride Carbon Dioxide Anion Gap BUN Creatinine Est Cr Clr Drug Dosing Est GFR ( Amer) Est GFR (Non-Af Amer) BUN/Creatinine Ratio Glucose POC Glucose 138 H 168 H Calcium 25-OH Vitamin D Total 39.4 Diagnostic Findings On 04/05/2023, history and physical report reviewed. Telemetry reviewed: Predominantly sinus rhythm with nonsustained AIVR, PVCs. When reviewed this afternoon, he appeared to have less burden later in the morning and afternoon, after receiving metoprolol. Echo 03/27/2023: Normal LV systolic function. EF 60 to 65%. Sclerotic aortic valve. Mild MR. Pulmonary hypertension. ECG personally reviewed 03/26/2023: Sinus bradycardia 58 bpm. RBBB. Venous Doppler 04/03/2023: No DVT within bilateral lower extremities. Chest x-ray 03/26/2023: Interstitial lung disease. Labs reviewed from 04/05/2023: Stable renal function, normal potassium, anemia. Medications Administered Current Inpatient Medications Acetaminophen (Acetaminophen 500 Mg Tab) 1,000 mg PO TID JUAN A Stop: 04/28/23 12:59 Last Admin: 04/05/23 13:40 Dose: 1,000 mg Allopurinol (Allopurinol 100 Mg Tab) 100 mg PO DAILY JUAN A Stop: 04/26/23 08:59 Last Admin: 04/05/23 07:42 Dose: 100 mg Alprazolam (Alprazolam 0.5 Mg Tablet) 0.25 mg PO PM JUAN A Stop: 04/25/23 23:17 Last Admin: 04/04/23 23:26 Dose: 0.25 mg Aspirin (Aspirin 325 Mg Ectab) 325 mg PO QAM JUAN A Stop: 04/30/23 11:29 Last Admin: 04/05/23 07:43 Dose: 325 mg Bisacodyl (Bisacodyl 10 Mg Supp) 10 mg DC DAILY PRN PRN Reason: Constipation Stop: 04/27/23 08:38 Dextrose (Dextrose 50% 50 Ml Syringe) 25 - 50 ml IV UD PRN; Protocol PRN Reason: Hypoglycemia Protocol Stop: 04/25/23 20:43 Docusate Sodium (Docusate Sodium 100 Mg Cap) 100 mg PO BID JUAN A Stop: 04/27/23 20:59 Last Admin: 04/05/23 07:40 Dose: 100 mg Escitalopram Oxalate (Escitalopram Oxalate 10 Mg Tab) 10 mg PO QAM [facility] Stop: 04/26/23 08:59 Last Admin: 04/05/23 07:42 Dose: 10 mg Famotidine (Famotidine 40 Mg Tablet) 40 mg PO HS JUAN A Stop: 04/25/23 23:17 Last Admin: 04/04/23 22:02 Dose: 40 mg Finasteride (Finasteride 5 Mg Tab) 5 mg PO HS [facility] Stop: 04/25/23 23:17 Last Admin: 04/04/23 22:02 Dose: 5 mg Furosemide (Furosemide 20 Mg Tab) 20 mg PO Q2D [facility] Stop: 04/27/23 08:59 Last Admin: 04/05/23 08:25 Dose: 20 mg Gabapentin (Gabapentin 300 Mg Cap) 300 mg PO TID JUAN A Stop: 04/25/23 23:17 Last Admin: 04/05/23 13:40 Dose: 300 mg Glucagon (Glucagon For Inj 1 Mg Vial) 1 mg SQ UD PRN; Protocol PRN Reason: Hypoglycemia Protocol Stop: 04/25/23 20:43 Glucose (Glucose 10 Tab/Tube) 4 - 8 tab PO UD PRN; Protocol PRN Reason: Hypoglycemia Treatment Stop: 04/25/23 20:43 Glucose (Glucose 40% Gel 15 Gm Tube) 15 - 30 gm PO UD PRN; Protocol PRN Reason: Hypoglycemia Protocol Stop: 04/25/23 20:43 Guaifenesin (Guaifenesin 600 Mg Tabcr) 1,200 mg PO Q12 JUAN A Stop: 05/03/23 12:39 Last Admin: 04/05/23 07:39 Dose: 1,200 mg Insulin Aspart (Insulin Aspart Per Unit Charge) 0 units SC ACHS JUAN A Stop: 04/25/23 20:59 Last Admin: 04/05/23 12:10 Dose: 4 units Insulin Glargine (Lantus Per Unit Charge) 5 units SQ BID JUAN A Stop: 04/28/23 20:59 Last Admin: 04/05/23 08:30 Dose: 5 units Levothyroxine Sodium (Levothyroxine Sodium 50 Mcg Tablet) 50 mcg PO DAILYBB [facility] Stop: 04/26/23 06:29 Last Admin: 04/05/23 05:49 Dose: 50 mcg Magnesium Hydroxide (Magnesium Hydroxide Susp 30 Ml Udc) 30 ml PO Q6H PRN PRN Reason: Constipation Stop: 04/27/23 17:51 Magnesium Oxide (Magnesium Oxide 400 Mg Tab) 400 mg PO QAM [facility] Stop: 05/01/23 10:59 Last Admin: 04/05/23 07:43 Dose: 400 mg Melatonin (Melatonin 3 Mg Tab) 3 mg PO HS PRN PRN Reason: Sleep Stop: 04/30/23 01:09 Last Admin: 03/31/23 01:53 Dose: 3 mg Metoprolol Succinate (Metoprolol Succ 25mg Ext Rel Tab) 25 mg PO QPM [facility] Stop: 05/04/23 20:59 Last Admin: 04/04/23 22:03 Dose: 25 mg Midodrine (Midodrine Hcl 2.5 Mg Tab) 2.5 mg PO TID@0800,1200,1700 [facility] Stop: 05/04/23 09:49 Last Admin: 04/05/23 12:11 Dose: 2.5 mg Miscellaneous (Carbohydrates For Hypoglycemia ) 15 - 30 gm PO UD PRN PRN Reason: Hypoglycemia Protocol Stop: 04/25/23 20:43 Multivitamins ([facility]ivitamin Tab) [facility] Stop: 04/28/23 08:59 Last Admin: 04/05/23 07:42 Dose: 1 tab Mycophenolate Mofetil (Mycophenolate Mofetil 250 Mg Cap) 250 mg PO BID [facility] Stop: 04/25/23 23:17 Last Admin: 04/05/23 07:40 Dose: 250 mg Naloxone HCl (Naloxone Hcl 0.4 Mg/1 Ml Vial/Carp) 0.1 mg IV Q5M PRN PRN Reason: Oversedation/Resp Depression Stop: 04/27/23 17:51 Nystatin (Nystatin Susp 500,000 U/5 Ml Udc) 5 ml PO QID [facility] Stop: 04/14/23 21:39 Last Admin: 04/05/23 12:11 Dose: Not Given Ondansetron HCl (Ondansetron Inj 2 Mg/Ml 2 Ml Vial) 4 mg IV Q6H PRN PRN Reason: Nausea And Vomiting Stop: 04/26/23 19:03 Last Admin: 03/27/23 19:12 Dose: 4 mg Oxycodone HCl (Oxycodone Hcl Ir 5 Mg Tab (Immediate Release)) 5 - 10 mg PO Q4H PRN PRN Reason: Pain or Pre PT Stop: 04/11/23 17:51 Last Admin: 04/01/23 11:05 Dose: 10 mg Pantoprazole Sodium (Pantoprazole 40 Mg Tab) 40 mg PO DAILY JUAN A Stop: 04/26/23 08:59 Last Admin: 04/05/23 07:41 Dose: 40 mg Polyethylene Glycol (Polyethylene (Miralax) 17 Gm Pack) 17 gm PO DAILY JUAN A Stop: 04/30/23 11:29 Last Admin: 04/05/23 07:42 Dose: Not Given Prednisone (Prednisone 10 Mg Tablet) 10 mg PO HS JUAN A Stop: 05/04/23 20:59 Last Admin: 04/04/23 23:53 Dose: 10 mg Sennosides (Senna 8.6 Mg Tab) 17.2 mg PO HS JUAN A Stop: 04/26/23 20:59 Last Admin: 04/04/23 22:03 Dose: 17.2 mg Tamsulosin HCl (Tamsulosin Hcl 0.4 Mg Cap) 0.4 mg PO DAILY JUAN A Stop: 04/26/23 08:59 Last Admin: 04/05/23 07:41 Dose: 0.4 mg PG Care Time/CCT Total # of Minutes Spent Total Time Spent with Patient: Total time spent is greater than 50% in coordination of care (as documented) at patient's floor/unit and/or counseling patient: Coding Level of Care Code 29526 INT INP/OBS CARE 2/55MIN Diagnoses Accelerated idioventricular rhythm I44.2 PVCs (premature ventricular contractions) I49.3 Edema R60.9 Edema type: unspecified Cardiomyopathy I42.9 Venous insufficiency I87.2 Syncope and collapse R55 (3) Edema Edema type: unspecified Qualified Code(s): R60.9 - Edema, unspecified
--- NOTE | 2023-04-05 16:36 | Discharge Summary ---
Date of Service date of admission - March 26, 2023 date of discharge - April 05, 2023 Admission HPI Per Admitting Provider Ryan is a 83 year old male who presented to the ED today after a fall at home. His PMH includes aortic stenosis, orthostatic hypotension, cardiomyopathy, R BBB, gout, anxiety, DMII, interstitial lung disease, GERD, and venous insufficiency. He recalls being outside sitting on his porch this afternoon around 3pm- then got up from his chair when he started feeling very dizzy. States that he "tried to turn" while falling and landed on his right side/back and immediately felt pain. He is unsure if he hit his head, states he "probably" did. He states he did not lose consciousness. He lives alone and no one was home when this occurred- however his next door neighbor returned home shortly after and called his son, Vignesh. He states he is unsure of how long he was down but based on the last time he checked the time prior to the event it was about 10-15 minutes. He notes that prior to the incident, he had been feeling well. He had eaten and drank per usual today, recalls having a bowl of fruit earlier in the afternoon. Ryan states he has had episodes of dizziness for a long time, but has not had a fall in over one year. He has dyspnea on exertion, but states it has not been worsening. He denies any recent changes in medications. He denies any current chest pain, dizziness, changes in bowel or bladder habits, fever, body aches, chills, or dyspnea at rest. Principal Diagnosis 1. right humerus fracture - s/p ORIF - Dr Thomas Johnson 2. recurrent falls with injury 3. orthostatic hypotension - improved; may have contributed to past falls 4. chronic PVCs 5. interstitial lung disease 6. pulmonary hypertension 7. oxygen dependency - due to #5 and #6 8. hyponatremia - resolved Discharge Exam gen - looks good, NAD neck - no JVD sitting upright at 90 degrees heart - RRR, s1 s2, 2/6 systolic murmur LSB lungs - fine, dry rales both bases - worse on right; mild wheezes on left abd - soft NT ND BS+ musculo - right shoulder/arm in sling; handgrip right 5/5; cap refill right hand brisk ext - 1+ edema b/l legs, pulses 2+ b/l psych - a/o x 3 skin - bruising right upper arm; incision clean/dry/intact Discharge Data Allergies Allergy/AdvReac Type Severity Reaction Status Date / Time Sulfa (Sulfonamide Allergy Severe RASH, Verified 03/26/23 21:14 Antibiotics) HIVES, SWOLLEN MOUTH, THROAT SWELLING lisinopril Allergy Intermediate lethargic Verified 03/26/23 21:14 Penicillins Allergy Intermediate RASH, HIVES Verified 03/26/23 21:14 Consultations Orthopedic Surgery - Thomas Johnson MD [facility] Cardiology - Severo South MD PT, OT Wound Care Team Procedures Performed Operation Date: 03/28/23 12:00 Actual Procedures Right open reduction internal fixation dang prosthetic humerus fracture with proximal humerus long locking plate with proximal cerclage wire fixation- irrigation and dressing change elbow skin lacerations - Thomas Johnson MD Echocardiogram - Ambulatory O2 test - needs 2 liters of NC O2 with activity Ordered Studies Shoulder X-Ray 03/26/23 16:03 XR shoulder RT min 2V routine CLINICAL HISTORY: fall, pain TECHNIQUE: 3 views of the right shoulder were obtained. Comparison: Comparison is made to right shoulder radiographs 03/24/2022 FINDINGS: There is a mildly comminuted fracture of the humeral shaft at the distal aspect of the humeral arthroplasty component. Right reverse shoulder arthroplasty is noted. The overlying soft tissues are unremarkable. The visualized portions of the lungs are clear. IMPRESSION: Comminuted periprosthetic fracture at the distal aspect of the humeral stem component. ACT 112: Negative or not required by law. Electronically signed by: Juan Carlos Velasquez M.D. 03/26/2023 4:57 PM Chest X-Ray 03/26/23 16:14 XR chest 1V portable CLINICAL HISTORY: weakness TECHNIQUE: Single frontal radiograph of the chest was obtained. Comparison: Comparison is made to chest radiograph 02/21/2023 FINDINGS: No lines and tubes are seen. Calcified aortic knob is seen. Reticular interstitial opacities are seen. No evidence of pleural effusion or pneumothorax. Right shoulder reverse arthroplasty is seen. Please see x-ray shoulder for findings of humeral fracture. IMPRESSION: Interstitial lung disease is seen. Please see x-ray shoulder for findings of humeral fracture. ACT 112: Negative or not required by law. Electronically signed by: Juan Carlos Velasquez M.D. 03/26/2023 4:56 PM Humerus X-Ray 03/28/23 12:00 FL humerus RT 2V CLINICAL HISTORY: RT ORIF DANG-PROS FX COMPARISON STUDY: Right shoulder radiographs March 26, 2023. FLUOROSCOPY TIME: 44 seconds. omar Valle: 3.3429 mGy FLUOROSCOPIC IMAGES: 3 FINDINGS: Fluoroscopy was provided during internal fixation of periprosthetic right humeral fracture shown on radiographs of March 26, 2023. Lateral plate with cerclage wires is noted. Fracture alignment appears near anatomic. Right shoulder arthroplasty is again noted. IMPRESSION: Fluoroscopy provided during internal fixation of the right humeral periprosthetic fracture. ACT 112: Negative or not required by law. Electronically signed by: Zia Elkins M.D. 03/29/2023 10:04 AM Venous Doppler Study 04/03/23 14:16 BILATERAL LOWER EXTREMITY VENOUS DOPPLER HISTORY: Bilateral lower extremity edema, recent surgery, eval DVT COMPARISON STUDY: None. FINDINGS: There is normal compressibility, flow, and augmentation within the bilateral lower extremity deep venous systems. IMPRESSION: No DVT within the right or left lower extremity. ACT 112: Negative or not required by law. Electronically signed by: Artis Ledesma M.D. 04/03/2023 4:27 PM Hospital Course (1) Orthostasis: Patient has had well documented orthostasis leading to dizziness/lightheadedness over the past several years. Outpatient clinic records speak to this chronic issue. He had positive orthostatics early in the stay; the orthostasis resolved; then he developed dizziness once again later in the stay. Orthostatics were again positive at that time. It was noted that any time we gave extra diuretics for his lower extremity edema it worsened his orthostasis & dizziness. Thus, we started midodrine 2.5mg TID with meals during the hospitalization. Orthostasis resolved with the midodrine. For 24 hours after initiating midodrine we watched his BPs on his usual regimen of metoprolol succinate 25mg daily, lasix 20mg QOD, and prednisone 10mg daily. Again orthostatic BPs remained normal and he had no further dizziness. He will follow-up with [facility] Cardiology post-discharge for routine care. (2) Fall: 2nd to orthostasis in the setting of moderate hyponatremia at time of admission. This led to his right humerus periprosthetic fracture and multiple skin tears. I reviewed cardiology records - has had long standing intolerance of multiple BP meds + diuretics with dizziness/orthostasis. He was orthostatic at time of admission, and later in the stay also had orthostasis and low BPs once again. see #1 above re: midodrine. (3) Periprosthetic fracture around internal prosthetic joint: Right Periprosthetic Humerus Fracture - s/p repeat TSA on 03/28/[address] Thomas Johnson. Did well post-operatively from an orthopedic standpoint. Pain was controlled with scheduled tylenol + oxycodone prn. He will continue to use a sling for immobilization at home. He was instructed that he should NOT lift with the right arm and to perform NO right shoulder range of motion. DVT proph - aspirin 81mg twice daily x 4 weeks post-discharge. He will need follow-up with Dr Johnson - [facility] orthopedics - shortly after discharge. (4) Frequent PVCs: Had 10 beat run of nonsustained ventricular tachycardia on 03/27/23. No symptoms. The patient has NUMEROUS PVCs throughout a 24-hour period. Also no symptoms. This has been previously diagnosed via monitoring in the past and he is followed by [facility] Cardiology for such. Echo this admission with preserved EF and normal LV wall motion Remains on metoprolol succ 25mg daily. He was seen by Dr Severo South and no additional recommendations were made for the PVCs other than his beta juanjose. 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 Tegretol d/c. Serial Na levels now normal. Lowest Na level was 126 at admission. Na level 136 at discharge. Recommend a repeat BMP at time of hospital follow-up for stability. (6) Anemia: Peripheral smear from 6 months ago without any significant abnormalities BCR/able and flow cytometry also normal/negative at that time Recent B12 normal, folate normal, and iron studies normal Discharge hemoglobin 9.7 (7) Hypothyroidism: TSH normal at 4.45 Continue home dose of levothyroxine 50mcg daily (8) GERD (gastroesophageal reflux disease): Continue home Pepcid and Protonix (9) Cardiomyopathy: With a history of previous reduced EF heart failure, EF now normalized Follows with cardiology - [facility] - Dr Severo South Continue Toprol-XL. He cannot tolerate DONY inhibitor based on records Repeat echocardiogram performed this admission for nonsustained V. tach showed preserved EF and pulmonary hypertension (moderate) Continue Lasix 20 Mg QOD (10) Interstitial lung disease: Continue CellCept 250mg BID Continue prednisone 10mg daily He did receive a course of "stress dose" steroids while here Follows with pulmonology, [facility], Dr J Luis Mares 2-step ambulatory O2 test showed that he needs 2 liters of NC O2 with activity/ambulation only (11) Venous insufficiency: With history of venous ablation by Dr Tommy Irizarry Continue Lasix QOD Despite his edema he otherwise does not examine in CHF Advised to elevate legs at home and use compression stockings to help with his edema (12) BPH (benign prostatic hyperplasia): No acute issues while here Continue finasteride, tamsulosin Consider discontinuation of tamsulosin if orthostasis is refractory (13) Chronic kidney disease, stage III (moderate): Discharge Cr 1.1 Discharge CrCl 45-50 (14) Migraine: History of migraines, previously on carbamazepine for prophylaxis Follows with neurology at [facility] Discontinued carbamazepine due to suspected SIADH from such Continue gabapentin Did not have any major headaches while here (15) DMII (diabetes mellitus, type 2): hemoglobin A1c well controlled at 7.1% Continue basal and bolus insulin (16) Anxiety: Continue Lexapro and Xanax (17) DVT prophylaxis: Aspirin 81mg BID x 4 weeks (18) Pulmonary hypertension: Moderate on echo Likely 2nd to ILD Could be contributing to oxygen dependency with activity LE edema could also be exacerbated by his pulmonary HTN f/u with [facility] Cardiology for ongoing surveillance of his pulmonary HTN Plan patient returning home with home health services after insurance denied the re quest for inpatient rehab at [facility] Attestation I certify that this patient is under my care and that I, or a physicians assistant service manager working with me, had a face to-face encounter that meets the [place] [facility] [id number]-[id number] encounter requirements with this patient. The encounter with the patient was in whole, or in part, for the following medical condition, which is the primary reason for home health care (list medical condition): I certify that, based on my findings, the following services are medically necessary home health services: My clinical findings support the need for the above services because: OT Assess ADL Status and Restore Function w ADLs PT Assessment for Endurance / Balance / Strength Skilled Nsg Assessment Further, I certify that my clinical findings support that this patient is homebound (i.e. absences from home require considerable and taxing effort and are for medical reasons or evangelical services or infrequently or of short duration when for other reasons) because: Certification for Home Health Services: Based on the above findings, I certify that this patient is confined to the home and needs intermittent longterm care, physical therapy and/or speech the rapy or continues to need occupational therapy. The patient is under my care, and I have initiated the establishment of the plan of care. This patient will be followed by a physician who will periodically review the plan of care. Total Time Total Time Spent Total Time Spent (In Minutes): 60 Discharge Plan Discharge Items Patient Disposition: Home - Home Health Services Reason For Visit: FALL, HUMERUS FRACTURE Discharge Diagnosis: 1. recurrent falls with injury 2. right humerus fracture with surgery by Dr Thomas Johnson 3. orthostatic hypotension - improved; may have contributed to past falls 4. PVCs ("extra beats") 5. interstitial lung disease 6. pulmonary hypertension 7. need for oxygen with activity - due to #5 and #6 8. chronic prednisone use for interstitial lung disease 9. hyponatremia - low sodium - resolved Activity: Per Instructions section Lifting Comment: no lifting any weight with the right arm Bathing Comment: may shower; no tub baths or immersion of the R shoulder/arm in water Driving/Machine Use: NO DRIVING at this time Non-emergency contact: Primary Care Provider Call non-emergency contact if: you have any medication questions, your pain is not controlled, your pain is worsening, your pain is unusual for you, your pain is concerning for you, your wound has increased redness, your wound has increased drainage and your wound pain has increased Follow-up/Referrals: Severo South MD [Physician] - (see Dr South or NORY Dodge - in 1-2 weeks ) Sallie Mckeon MD [Primary Care Provider] - Thomas Johnson MD [Surgeon] - (5-7 days for incision check, etc) Diet: Carb Consistent or DM2 and Heart Healthy Addtl Attending Provider Instructions: Garrett Wall were hospitalized after suffering a fall which resulted in a right arm (hum erus) fracture and multiple skin tears. You underwent surgery by Dr Johnson on 03/29/23 to repair the fracture. From the standpoint of your fracture & your surgery you have done well. Orthopedics wishes to see you back in the clinic in 5-7 days to recheck your incision and see how you are doing. The cause of your fall was likely dizziness due to orthostasis as well as low sodium levels. Orthostasis is when your blood pressure falls when you stand up. This causes dizziness/lightheadedness in people of all ages. Orthostasis can lead to passing out spells as well as falls. Due to these prior episodes of feeling dizzy and having falls we worked on treating the orthostasis. To that end we have added a medication called midodrine. This medication is taken 3 times each day (breakfast, lunch, and dinner). This medication is intended to prevent the fall in blood pressure that you experience at times when you stand up. Since starting the medication the orthostasis has been much better. Unfortunately your request to do rehab at [facility] was denied by your insurance. You have decided to return home with home PT & OT, etc. Recommendations - 1. Right shoulder fracture with surgical repair - see dedicated orthopedic instructions below. 2. Take midodrine 2.5mg with breakfast, 2.5mg with lunch, and 2.5mg with dinner to prevent drops in blood pressure (orthostasis). 3. For mouth irritation - nystatin solution 5cc four times daily x 5 days; swish and spit. 4. For pain - * tija-tdq-salqjqi tylenol - 1000mg three times daily for 10 days * oxycodone 5mg every 6 hours as needed * this medication will cause constipation * it can also make you drowsy/tired * do not drive a car while taking this medication * do not drink alcohol while taking this medication 5. Be sure you are taking 10mg of prednisone EVERY DAY for your interstitial lung disease. I sent in a prescription for the 10mg tablet for you. You have a follow up appointment scheduled with Dr Mares on 04/13/23 for your lung condition. 6. Oxygen - 2 liters of oxygen with any activity or ambulation, especially when you leave your home. Do NOT let any person smoke in your home due to risk of a house fire. 7. STOP your carbamazapine medication that was previously being used for headaches. This medication may have contributed to low sodium levels. 8. For prevention of DVT blood clots during your recovery period at home take xfue-yuo-ncmhzwl aspirin 81mg twice daily with food for 4 weeks. 9. Please check your blood pressure once a day. Standing blood pressures are most important in individuals who have tendencies towards orthostasis. 10. For constipation may use 1 or both of the following jhyo-mfv-ppmlbma medications - * miralax 1 serving daily and/or * senokot 2 tablets daily 11. You received your furosemide water pill this am. Ok to take again tomorrow AM for your swelling. On Sunday you can resume your normal every other day schedule. Please continue to elevate your legs, and consider resuming your compression stockings. Follow-up - see separate section Return to [facility] if - * you have fevers over 100 degrees * you have uncontrolled pain in your right shoulder or arm * you have numbness or tingling in the right arm * you have worsening shortness of breath * you have severe dizziness or lightheadedness * you have any concerns about your surgical incision * any other issues or concerns It was our pleasure to care for you! -Dr Adonay Carrington [employer] Provider Instructions: ACTIVITY RECOMMENDATIONS following your right shoulder surgery - SELF CARE INSTRUCTIONS A. You may do daily exercises as taught in physical therapy while in hospital. No lifting with the operative arm. No shoulder range of motion. B. You are to wear your sling/immobilizer at all times EXCEPT when performing your daily exercises and for hygiene purposes. C. You may perform dry, daily dressing changes. Please keep your incision covered. You may shower 48 hours after surgery. Do not apply soap or any ointment/lotions directly over incision. Do not soak incision in bath tub/swimming pool. D. You may use ice as needed to operative shoulder. SPECIAL CARE INSTRUCTIONS: VERY IMPORTANT TO READ AND REVIEW A. There are a few signs you need to watch for after you are home. Call [facility] at [phone] if you experience any of the followin. Increased severe shoulder pain. Some pain is expected especially when you exercise. 2. Increased swelling in you shoulder or arm; pain or swelling in either upper extremity. 3. Any fluid drainage from the incision. 4. Shortness of breath or chest pain. B. Please call [facility] at [phone] if you have any questions or concerns about your operation or recovery. C. Call your physician if: 1. Temperature is greater than 101 degrees (F). 2. Pain is not relieved by prescribed pain medications. 3. Increase drainage or redness from incision. 4. Unanswered questions or concerns. FOLLOW UP VISIT: Please call [facility] at [phone] to schedule a follow up appointment with Dr. Johnson or his PA in 12-14 days from your surgery date (surgery was on 03/29/23) Pending Studies at Discharge: No Stand-Alone Forms: [employer] [facility] [employer], Smoking Cessation Medications and DC Order Prescriptions: New (DME) Oxygen Home Liters Per Minute See Rx Instructions .ROUTE .MEDSUPPLY Qty: 1 0RF Rx Instructions: 2 liters NC O2 with activity/ambulation. acetaminophen [Tylenol Extra Strength] 500 mg Tablet 1,000 mg PO TID Qty: 30 0RF Rx Instructions: purchase [id number]-new-xcgxeyx; take for 10 days midodrine 2.5 mg Tablet 2.5 mg PO TID@0800,1200,1700 Qty: 90 2RF oxycodone 5 mg Tablet 5 mg PO Q6H PRN (Reason: pain) Qty: 10 0RF aspirin 81 mg tablet,delayed release (DR/EC) 81 mg PO BID 30 Days Qty: 60 0RF Rx Instructions: purchase over the counter Continued (DME) pen needle, diabetic [BD Ultra-Fine Vale Pen Needle] 32 gauge x 5/32" needle See Rx Instructions .Route Qty: 100 1RF Rx Instructions: USE TO TEST 2-3 TIMES DAILY OR DIRECTED gabapentin 300 mg capsule 300 mg PO TID Qty: 90 2RF mycophenolate mofetil [CellCept] 250 mg capsule 250 mg PO BID Qty: 120 2RF alprazolam [Xanax] 0.5 mg tablet 0.25 mg PO PM Qty: 15 0RF allopurinol 100 mg tablet 100 mg PO DAILY Qty: 90 1RF escitalopram oxalate [Lexapro] 10 mg tablet 10 mg PO QAM Qty: 90 1RF levothyroxine 50 mcg capsule 50 mcg PO QAM Qty: 90 1RF Tresiba FlexTouch U-100 100 unit/mL (3 mL) insulin pen 10 unit subcut QAM famotidine [Pepcid] 40 mg tablet 40 mg PO HS insulin lispro [Humalog U-100 Insulin] 100 unit/mL solution 6 unit subcut QPM Patient Comments: TAKES BEFORE EVENING MEAL guaifenesin [Mucinex] 600 mg tablet extended release 12hr 600 mg PO Q12H PRN (Reason: congestion) Qty: 30 0RF omeprazole 40 mg capsule,delayed release(DR/EC) 40 mg PO DAILY (DME) Dexcom G7 Heel Stiffener Misc See Rx Instructions .Route Qty: 1 0RF Rx Instructions: As directed- E11.9 (DME) Dexcom G7 Sensor Device See Rx Instructions .Route Qty: 1 0RF Rx Instructions: As directed E11.9 metoprolol succinate 25 mg Tablet Extended Release 24 Hr 25 mg PO QPM finasteride [Proscar] 5 mg tablet 5 mg PO QPM Changed prednisone 10 mg tablet 10 mg PO DAILY Qty: 30 2RF Rx Instructions: for interstitial lung disease Discontinued carbamazepine 200 mg tablet 200 mg PO QAM No Action furosemide 20 mg tablet 20 mg PO Q2D Qty: 45 1RF tamsulosin 0.4 mg capsule 0.4 mg PO DAILY Qty: 90 3RF Discharge Orders: Discharge Order (Routine); Ordered 04/05/23 Ordered By: Nitin Ferraro/Other Patient Handouts: Managing Type 2 Diabetes Admission Data Admit Date/Time: 03/26/23 20:43 Attending Provider: Nitin Urias Admit Provider: Jennifer Dobbins Primary Care Provider: Sallie Mckeon Other Providers: Guido Mancia William A. ; [facility] ; [place] ; [facility],Home Health ; Severo South Other Interventions: Discharge Summary Assessment (RN) Last Done: 04/05/23 16:15 Coding Level of Care Code 62937 INP/OBS DISCH >30 MIN Diagnoses Orthostasis I95.1 Fall W19.XXXA Periprosthetic fracture around internal prosthetic joint M97.9XXA Frequent PVCs I49.3 Hyponatremia E87.1 Anemia D64.9 Hypothyroidism E03.9 GERD (gastroesophageal reflux disease) K21.9 Cardiomyopathy I42.9 Interstitial lung disease J84.9 Venous insufficiency I87.2 BPH (benign prostatic hyperplasia) N40.0 Lower urinary tract symptom presence: symptoms absent Chronic kidney disease, stage III (moderate) N18.30 Migraine G43.909 DMII (diabetes mellitus, type 2) E11.22; N18.31; Z79.4 Chronic kidney disease stage: stage 3 (moderate) Chronic kidney disease stage 3 subtype: stage 3a (GFR 45-59) Diabetes mellitus complication detail: with chronic kidney disease Diabetes mellitus complication status: with kidney complications Diabetes mellitus terminal manager insulin use: with terminal manager use Anxiety F41.9 DVT prophylaxis Z29.9 Pulmonary hypertension I27.20
== END 2023-04-05 16:53 | disposition home health service (06) | DRG 493 ==
LOC: ED 15:57 → EDINP 20:43 → SUATTDRO 20:43 → 2N 03-27 00:44

== ENCOUNTER 2023-10-31 10:34 | Observation (INO) ==
[2023-10-31 11:48] LABS: Basophils # (auto) 0.06 K/uL (0.00-0.20); Basophils % (auto) 0.4 %; Eosinophils # (auto) 0.07 K/uL (0.00-0.50); Eosinophils % (auto) 0.5 %; Hematocrit (blood only) 37.3 % (42.0-52.0); Hemoglobin 12.2 g/dl (14.0-18.0); Immature Granulocytes # (auto) 0.18 K/uL (0.01-0.20); Immature Granulocytes % (auto) 1.3 %; Lymphocytes # (auto) 1.27 K/uL (1.20-3.40); Mean Corpuscular Hemoglobin 29.8 pg (25.0-34.0); Mean Corpuscular Hgb Conc 32.7 g/dL (32.0-36.0); Mean Corpuscular Volume 91.2 fL (80.0-100.0); Monocytes # (auto) 0.87 K/uL (0.11-0.59); Monocytes % (auto) 6.1 %; Neutrophils # (auto) 11.73 K/uL (1.40-6.50); Neutrophils % (auto) 82.7 %; Platelet Count 249 K/uL (130-400); RDW Coefficient of Variation 13.6 % (11.5-14.5); RDW Standard Deviation 45.8 fL (36.4-46.3); Red Blood Count 4.09 M/uL (4.70-6.10); White Blood Count 14.18 K/ul (4.8-10.8)
--- NOTE | 2023-10-31 11:56 | Emergency Department Note ---
History of Present Illness General Chief complaint: Fall Stated complaint: FELL HIT BACK OF HEAD Time Seen by Provider: 10/31/23 11:01 History of Present Illness Maximum Pain Intensity: 7 83-year-old male presents emergency department states that he was in the kitchen this morning and he passed out hitting the back of his head. Of note the patient was in our emergency department yesterday for similar episode in which she had a fainting spell and had a laceration to his nasal bridge. Patient had CAT scans at the time and was discharged home. Patient has a history of orthostatic hypotension. Patient is currently on Midrin known. Patient is also taken Sudafed for upper respiratory tract and sinus symptoms. Patient states that he had chest pain after the fall today. Patient denies substernal chest pressure currently denies any neck pain jaw pain arm pain; there are no other mitigating or alleviating factors. Home Medications Medication Instructions Recorded Confirmed Type insulin lispro 100 unit/mL 6 unit subcut QPM 01/31/21 10/31/23 History subcutaneous solution (Humalog U-100 Insulin) finasteride 5 mg tablet (Proscar) 5 mg PO QPM 03/26/23 10/31/23 History tamsulosin 0.4 mg capsule 0.4 mg PO DAILY #90 caps 04/06/23 10/31/23 Rx omeprazole 40 mg capsule,delayed 40 mg PO QAM 05/30/23 10/31/23 History release famotidine 40 mg tablet (Pepcid) 40 mg PO HS #90 tabs 07/03/23 10/31/23 Rx metolazone 2.5 mg tablet 2.5 mg PO .COMPLEX #15 tabs 07/24/23 10/31/23 Rx metoprolol succinate 25 mg 25 mg PO QPM #90 tabs 07/25/23 10/31/23 Rx tablet,extended release 24 hr prednisone 10 mg tablet 10 mg PO DAILY #30 tabs 07/25/23 10/31/23 Rx midodrine 5 mg tablet 5 mg PO TID #90 tabs 08/21/23 10/31/23 Rx gabapentin 300 mg capsule 300 mg PO TID #90 caps 08/27/23 10/31/23 Rx mycophenolate mofetil 250 mg 250 mg PO BID #120 caps 08/27/23 10/31/23 Rx capsule (CellCept) levothyroxine 50 mcg tablet 50 mcg PO DAILY #90 tabs 09/20/23 10/31/23 Rx fluticasone propionate 50 1 spray intranasal BID #18.2 mL 10/23/23 10/31/23 Rx mcg/actuation nasal spray,suspension (Flonase Allergy Relief) insulin degludec 100 unit/mL (3 30 unit (0.3 mL) subcut QAM #15 mL 10/30/23 10/31/23 Rx mL) subcutaneous pen (Tresiba FlexTouch U-100 insulin) allopurinol 100 mg tablet 100 mg PO QAM 10/31/23 10/31/23 History alprazolam 0.5 mg tablet (Xanax) 0.25 mg PO HS 10/31/23 10/31/23 History escitalopram oxalate 10 mg tablet 10 mg PO QAM 10/31/23 10/31/23 History furosemide 20 mg tablet 20 mg PO DAILY 10/31/23 10/31/23 History Allergies Allergy/AdvReac Type Severity Reaction Status Date / Time Sulfa (Sulfonamide Allergy Severe RASH, Verified 10/31/23 12:51 Antibiotics) HIVES, SWOLLEN MOUTH, THROAT SWELLING lisinopril Allergy Intermediate lethargic Verified 10/31/23 12:51 Penicillins Allergy Intermediate RASH, HIVES Verified 10/31/23 12:51 Past Med/Surg History Medical History History of osteomyelitis left foot Orthostasis Periprosthetic fracture around internal prosthetic joint Fall Cervical spondylosis Migraine Syncope Hypothyroidism Hx of melanoma of skin RT EAR Low iron Anemia stable per patient Hx of esophageal ulcer Hx of gout Controlled with Allopurinol Hyponatremia Chronic kidney disease, stage III (moderate) BPH (benign prostatic hyperplasia) DMII (diabetes mellitus, type 2) Aortic stenosis Mild AV stenosis on 10/15/20 ECHO "AV opens well" on 05/11/21 ECHO -Per 08/2021 cardio note- noted in 2019 - no significant stenosis on most recent ECHO- known sclerotic AV- "no significant stenosis" Venous insufficiency Interstitial lung disease "HAS NOT USED INHALER FOR A LONG TIME" Breathing stable at rest- mild FONTANEZ with long walks (chronic and unchanged) Cough Accelerated idioventricular rhythm Asymptomatic. Beta-juanjose has been initiated since Holter monitor per cardio records Frequent PVCs FOLLOWED BY DR. WESLEY Frequent PVCs Anxiety Schatzki's ring No dysphagia Cardiomyopathy LV systolic function has normalized. Etiology of CM unknown. Anemia GERD (gastroesophageal reflux disease) Relatively controlled with medication (improved from previous) Hyperlipidemia Surgical History H/O shoulder replacement r shoulder Status post reverse total arthroplasty of right shoulder History of [place] of [place]TH [place] [facility] [place] History of esophagogastroduodenoscopy (EGD) with dilation History of wisdom tooth extraction History of tonsillectomy and adenoidectomy History of cardiac cath no stents>YEARS AGO AT [facility] S/P dilatation of esophageal stricture H/O foot surgery RT FOOT History of bilateral knee replacement Family History Father Family history of diabetes mellitus Coronary heart disease Prostate cancer Myocardial infarction Uncle Coronary heart disease Sister Breast cancer Other No family history of adverse response to anesthesia Denies family history of Ovarian cancer Colorectal cancer Social History Smoking Status: Never smoker Second Hand Exposure: No; Do You Dip or Chew Tobacco: No; Hx Alcohol Use: No Hx Substance Use: No Preferred Language: Luxembourgish Communication Ability: Effective Visual Impairment: Limited Hearing Ability: Use of Hearing Aid Iron Cutter Required: No Beliefs That Will Affect Care: None marital status: / Current Living Situation: Alone current occupational status: retired How many Children do You have: 3 Feels Safe at Home: Yes Childhood Exposure to Second-Hand Smoke: Yes Diet: low carbohydrate and regular caffeine: Yes during the past year weight has: increased > 10 lbs Dental Care, Regularly: Yes Physical Activity Frequency: 1-2 Times per Week Seatbelt Use: always Sunscreen Use: Yes Assistive Devices: Cane, Glasses, Walker and Wheelchair Review of Systems A total of 10 systems reviewed and were otherwise negative Constitutional: no fever Respiratory: no cough Cardiovascular: no chest pain Gastrointestinal: no abdominal pain Neurologic: + falls Physical Exam Vital Signs Vital Signs - 24 hr 10/31/23 10:50 10/31/23 11:18 10/31/23 12:35 Temperature 36.6 C Temperature Source Temporal Artery Scan Pulse Rate 86 69 Pulse Rate [Right Finger] 59 L Pulse Rhythm Regular Pulse Strength Normal Respiratory Rate 20 22 Respiratory Effort / Characteristics Non-Labored Spontaneous Non-Labored Spontaneous Respiratory Depth Normal Normal Respiratory Pattern Regular Regular Blood Pressure 95/69 L Blood Pressure [Right Arm] 138/75 Blood Pressure Mean 77 Blood Pressure Mean [Right Arm] 96 Blood Pressure Position Sitting Pulse Oximetry 94 96 Oxygen Delivery Method Room Air Room Air Sepsis Recent Fever Within 48 Hours No Sepsis New/Unexplained Change in Mental Status No Sepsis Action Taken by Nursing No Action Required 10/31/23 15:19 Temperature Temperature Source Pulse Rate 60 Pulse Rate [Right Finger] Pulse Rhythm Pulse Strength Respiratory Rate Respiratory Effort / Characteristics Respiratory Depth Respiratory Pattern Blood Pressure Blood Pressure [Right Arm] Blood Pressure Mean Blood Pressure Mean [Right Arm] Blood Pressure Position Pulse Oximetry Oxygen Delivery Method Sepsis Recent Fever Within 48 Hours Sepsis New/Unexplained Change in Mental Status Sepsis Action Taken by Nursing GENERAL: Patient is awake alert in no acute distress patient is resting comfortably and showing no signs of anxiety EYES: The conjunctivae are clear. The pupils are round and reactive. HEAD: Patient has an area of dried blood in the occipital region EARS, NOSE, MOUTH AND THROAT: The nose is without any evidence of any deformity. Mucous membranes are moist. Tongue is midline. Right eye periorbital ecchymosis is present NECK: The neck is nontender and supple. Nontender RESPIRATORY: Normal respiratory effort is noted there is no evidence of wheezing rhonchi or rales CARDIOVASCULAR: Regular rate and rhythm noted there no murmurs rubs or gallops normal S1 normal S2. GASTROINTESTINAL: The abdomen is soft. Abdomen is nontender. PELVIS: The Pelvis is stable. No tenderness to palpation is noted. BACK: No midline tenderness or or step-off noted range of motion in flexion extension as well as rotation no signs of muscle spasm noted MUSCULOSKELETAL/EXTREMITIES: There is no evidence of gross deformity full range of motion is noted in the hips and shoulders. SKIN: There is no obvious evidence of any rash. There are no petechiae, pallor or cyanosis noted. NEUROLOGIC: Patient is awake alert and oriented x3 strength is symmetric; [id number] Procedures Laceration Laceration 1: Site: scalp Size (cm): 3 Description: linear Pre-repair: wound explored Skin layer closed with: other (jam, 5 jam) Course Reevaluation(s) Reevaluation #1: Patient is resting in no distress on my repeat examination; I discussed the evaluation with the patient and patient's family at bedside. Is recommended that the patient gets admitted due to multiple falls in past 24 hours due to likely syncope Time: 15:00 Consultations Consultation #1: Case was discussed with the [facility] hospitalist for admission Time: 15:45 Medical Decision Making Medical Records Attestation: I reviewed the patient's medical records. Home Medications Current Medication List: was personally reviewed by me Laboratory Data Attestation: I reviewed the patient's lab results. Lab results interpreted by me patient has a mild leukocytosis, a mild elevation in his creatinine which is around his baseline 10/31/23 11:32 10/31/23 11:32 Lab Results 10/31/23 Range/Units 11:32 WBC 14.18 H (4.8-10.8) K/ul RBC 4.09 L (4.70-6.10) M/uL Hgb 12.2 L (14.0-18.0) g/dl Hct 37.3 L (42.0-52.0) % MCV 91.2 (80.0-100.0) fL MCH 29.8 (25.0-34.0) pg MCHC 32.7 (32.0-36.0) g/dL RDW Std Deviation 45.8 (36.4-46.3) fL RDW Coeff of Graham 13.6 (11.5-14.5) % Plt Count 249 (130-400) K/uL MPV 11.0 (9.4-12.4) fL Immature Gran % (Auto) 1.3 % Neut % (Auto) 82.7 % Lymph % (Auto) 9.0 % [place] % (Auto) 6.1 % Eos % (Auto) 0.5 % Baso % (Auto) 0.4 % Neut # (Auto) 11.73 H (1.40-6.50) K/uL Lymph # (Auto) 1.27 (1.20-3.40) K/uL [place] # (Auto) 0.87 H (0.11-0.59) K/uL Eos # (Auto) 0.07 (0.00-0.50) K/uL Baso # (Auto) 0.06 (0.00-0.20) K/uL Immature Gran # (Auto) 0.18 (0.01-0.20) K/uL PT 10.3 (9.0-12.0) Seconds INR 0.9 (0.9-1.1) APTT 25 (21-31) Seconds PTT Ratio 0.9 Sodium 133 L (136-145) mmol/L Potassium 3.9 (3.5-5.1) mmol/L Chloride 96 L (98-107) mmol/L Carbon Dioxide 30 (21-32) mmol/L Anion Gap 7 (3-11) BUN 43 H (6-23) mg/dl Creatinine 1.57 H (0.6-1.4) mg/dl Est Cr Clr Drug Dosing 36.0 ml/min Est GFR ( Amer) 45.9 ml/min Est GFR (Non-Af Amer) 39.6 ml/min BUN/Creatinine Ratio 27.4 H (10-20) Glucose 127 H (70-99(Fasting)) mg/dl Calcium 9.3 (8.6-10.3) mg/dl Total Bilirubin 0.6 (0.2-1.0) mg/dl AST 15 (13-39) U/L ALT 18 (7-52) U/L Alkaline Phosphatase 61 (34-104) U/L Troponin I High Sens 27.1 H (0-20) pg/ml Total Protein 6.7 (6.0-8.3) gm/dl Albumin 3.9 (3.4-5.0) gm/dl Globulin 2.8 (2.5-4.0) gm/dl Albumin/Globulin Ratio 1.4 (0.9-2) Imaging Data Attestation: I personally reviewed and interpreted this imaging study as follows: My Impression: Chest x-ray interpreted by me negative for infiltrate or pneumothorax Radiologist's Impression: Cervical Spine CT 10/31/23 11:[address] DOSE: HISTORY: Neck pain. fall TECHNIQUE: Multiaxial CT images of the cervical spine were performed and reformatted in the sagittal and coronal plane without the use of contrast. A dose lowering technique was utilized adhering to the principles of ALARA. COMPARISON: Cervical spine CT 10/30/2003. FINDINGS: No fractures. Chronic right upper lobe fibrotic change again noted. Moderate to severe degenerative changes again seen within the cervical spine. Mild anterolisthesis at C3-C4 and C4-C5, unchanged. Severe disc space narrowing at C5-C6 and C6-C7. Prevertebral soft tissues and the C1-C2 interval are intact. No pneumothorax. IMPRESSION: No fractures within the cervical spine. ACT 112: Negative or not required by law. Electronically signed by: Artis Ledesma M.D. 10/31/2023 12:[address] 10/31/23 11:01 CT OF THE HEAD WITHOUT CONTRAST CLINICAL HISTORY: fall COMPARISON STUDY: Head CTs May 30, 2023 and October 30, 2023. CT DOSE: 1049.59 mGy.cm TECHNIQUE: Helical axial images of the head were obtained without IV contrast. Automated exposure control was utilized for the study. A dose lowering technique was utilized adhering to the principles of ALARA. FINDINGS: No acute intracranial hemorrhage, midline shift or mass effect is present. The ventricular system is unremarkable. The basal cisterns are patent. No extra-axial collections are present. There are no findings to suggest acute dural sinus thrombosis or acute territorial infarct. The appearance of the brain is unchanged. Left posterior scalp contusion is present. IMPRESSION: 1. No acute intracranial findings. 2. Left posterior scalp contusion. No calvarial fracture. ACT 112: Negative or not required by law. Electronically signed by: Zia Elkins M.D. 10/31/2023 12:01 PM Chest X-Ray 10/31/23 11:56 XR chest 1V portable CLINICAL HISTORY: chest pain after fall TECHNIQUE: Single frontal radiograph of the chest was obtained. Comparison: Comparison is made to chest radiograph 10/23/2023 FINDINGS: Right reverse shoulder arthroplasty is seen. Cardiomegaly is noted. The lungs are clear. No evidence of pleural effusion or pneumothorax. IMPRESSION: No acute chest disease. ACT 112: Negative or not required by law. Electronically signed by: Juan Carlos Velasquez M.D. 10/31/2023 12:50 PM ECG Data Attestation: I personally reviewed and interpreted this ECG as follows: Additional Comments: EKG interpreted by me sinus rhythm rate of 65, left axis deviation, right bundle branch block, left anterior hemiblock, no obvious ST segment elevation or depression Telemetry was ordered by me, interpreted as normal sinus rhythm rate of 65 MDM Narrative Medical decision making differential diagnosis includes closed head injury intracranial hemorrhage, skull fracture, cervical spine injury, metabolic derangement chest trauma Plan is to check CAT scans, EKG, labs, observe Patient's family is at bedside provide me history of the patient with frequent falls and is an emergency department visit yesterday I reviewed an office visit note from Dr. Mares on 10/23/2023 in which the patient has interstitial lung disease and is currently on Sudafed Patient will be admitted for syncope and multiple falls in the past 24 hours. Impression & Plan Syncope, CKD (chronic kidney disease), Concussion, Laceration of scalp Discharge Plan Visit Data Chief Complaint: Fall Stated Complaint: FELL HIT BACK OF HEAD ED Provider: Brennon Pelaez Discharge Problem: Syncope, CKD (chronic kidney disease), Concussion, Laceration of scalp Patient Disposition: Admitted As Inpatient Forms Stand Alone Forms: [facility] Prescriptions Prescriptions: No Action tamsulosin 0.4 mg capsule 0.4 mg PO DAILY Qty: 90 3RF famotidine [Pepcid] 40 mg tablet 40 mg PO HS Qty: 90 1RF prednisone 10 mg tablet 10 mg PO DAILY Qty: 30 2RF Rx Instructions: for interstitial lung disease metoprolol succinate 25 mg tablet extended release 24 hr 25 mg PO QPM Qty: 90 1RF midodrine 5 mg tablet 5 mg PO TID Qty: 90 5RF Rx Instructions: do not give last dose of day after 6PM or within 4 hrs of bedtime gabapentin 300 mg capsule 300 mg PO TID Qty: 90 2RF mycophenolate mofetil [CellCept] 250 mg capsule 250 mg PO BID Qty: 120 2RF levothyroxine 50 mcg tablet 50 mcg PO DAILY Qty: 90 1RF insulin degludec [Tresiba FlexTouch U-100] 100 unit/mL (3 mL) insulin pen 30 unit subcut QAM Qty: 15 3RF insulin lispro [Humalog U-100 Insulin] 100 unit/mL solution 6 unit subcut QPM Patient Comments: TAKES BEFORE EVENING MEAL fluticasone propionate [Flonase Allergy Relief] 50 mcg/actuation spray,suspension 1 spray intranasal BID Qty: 18.2 2RF Rx Instructions: administer into each nostril metolazone 2.5 mg tablet 2.5 mg PO .COMPLEX Qty: 15 2RF Rx Instructions: 2.5 mg orally Twice a week; finasteride [Proscar] 5 mg tablet 5 mg PO QPM allopurinol 100 mg tablet 100 mg PO QAM Rx Instructions: TAKE 1 TABLET BY MOUTH ONCE DAILY IN THE MORNING alprazolam [Xanax] 0.5 mg tablet 0.25 mg PO HS furosemide 20 mg tablet 20 mg PO DAILY escitalopram oxalate 10 mg tablet 10 mg PO QAM Rx Instructions: TAKE 1 TABLET BY MOUTH ONCE DAILY IN THE MORNING omeprazole 40 mg capsule,delayed release(DR/EC) 40 mg PO QAM Rx Instructions: TAKE 1 CAPSULE BY MOUTH ONCE DAILY IN THE MORNING Referrals Referrals: Sallie Mckeon MD [Primary Care Provider] -
--- NOTE | 2023-10-31 12:02 | CT Scan Report ---
CT OF THE HEAD WITHOUT CONTRAST CLINICAL HISTORY: fall COMPARISON STUDY: Head CTs May 30, 2023 and October 30, 2023. CT DOSE: 1049.59 mGy.cm TECHNIQUE: Helical axial images of the head were obtained without IV contrast. Automated exposure con trol was utilized for the study. A dose lowering technique was utilized adhering to the principles o f ALARA. FINDINGS: No acute intracranial hemorrhage, midline shift or mass effect is present. The ventricular system is unremarkable. The basal cisterns are patent. No extra-axial collections are present. There are no findings to suggest acute dural sinus thrombosis or acute territorial infarct. The appearance of the brain is unchanged. Left posterior scalp contusion is present. IMPRESSION: 1. No acute intracranial findings. 2. Left posterior scalp contusion. No calvarial fracture. ACT 112: Negative or not required by law. Electronically signed by: Zia Elkins M.D. 10/31/2023 12:01 PM
[2023-10-31 12:04] LABS: Albumin Globulin Ratio 1.4 (0.9-2); Albumin Level 3.9 gm/dl (3.4-5.0); BUN Creatinine Ratio 27.4 (10-20); Bilirubin,Total 0.6 mg/dl (0.2-1.0); Calcium 9.3 mg/dl (8.6-10.3); Est GFR (African American) 45.9 ml/min; Est GFR (Non-African American) 39.6 ml/min; Globulin 2.8 gm/dl (2.5-4.0); Potassium 3.9 mmol/L (3.5-5.1); Total Protein 6.7 gm/dl (6.0-8.3)
--- NOTE | 2023-10-31 12:07 | CT Scan Report ---
CERVICAL SPINE CT CT DOSE: HISTORY: Neck pain. fall TECHNIQUE: Multiaxial CT images of the cervical spine were performed and reformatted in the sagittal and coronal plane without the use of contrast. A dose lowering technique was utilized adhering to th e principles of ALARA. COMPARISON: Cervical spine CT 10/30/2003. FINDINGS: No fractures. Chronic right upper lobe fibrotic change again noted. Moderate to severe dege nerative changes again seen within the cervical spine. Mild anterolisthesis at C3-C4 and C4-C5, uncha nged. Severe disc space narrowing at C5-C6 and C6-C7. Prevertebral soft tissues and the C1-C2 interva l are intact. No pneumothorax. IMPRESSION: No fractures within the cervical spine. ACT 112: Negative or not required by law. Electronically signed by: Artis Ledesma M.D. 10/31/2023 12:06 PM
[2023-10-31 12:10] LABS: Troponin I High Sensitivity 27.1 pg/ml (0-20)
[2023-10-31 12:22] LABS: INR 0.9 (0.9-1.1); Partial Thromboplastin Ratio 0.9; Partial Thromboplastin Time 25 Seconds (21-31); Prothrombin Time 10.3 Seconds (9.0-12.0)
--- NOTE | 2023-10-31 12:51 | XRay Report ---
XR chest 1V portable CLINICAL HISTORY: chest pain after fall TECHNIQUE: Single frontal radiograph of the chest was obtained. Comparison: Comparison is made to chest radiograph 10/23/2023 FINDINGS: Right reverse shoulder arthroplasty is seen. Cardiomegaly is noted. The lungs are clear. No evidence of pleural effusion or pneumothorax. IMPRESSION: No acute chest disease. ACT 112: Negative or not required by law. Electronically signed by: Juan Carlos Velasquez M.D. 10/31/2023 12:50 PM
--- NOTE | 2023-10-31 15:22 | History & Physical Report ---
Date of Service October 31, 2023 Assessment & Plan (1) Recurrent falls: Plan: Patient had unexplained collapse on mornings of 10/30 and 10/31 Sustained facial injury on first collapse, hit back of head on second collapse Patient denies LOC, dizziness, tripping, or legs giving out; no blood thinners Hx of orthostatic hypotension; currently on midodrine and reports he takes it regularly Patient was recently taking Sudafed for a sinus infection; last taken Sunday m orning on 10/30; suspect this may be contributing to falls Head CT NAF x 2; however left posterior scalp contusion Cervical spine CT showed no evidence of acute fractures EKG revealed sinus rhythm with PACs in a pattern of bigeminy at 65 bpm; old RBBB; QTc 488; no pacemaker Elevated leukocytosis at 14.18 with neutrophil predominance; ?Chronic Elevated BUN/Cr ratio at 27.4 UA ordered, pending Patient reports he is on Xanax 0.25 mg p.o. at bedtime; he has been on this for 20 years Continuous telemetry monitoring Last echo on 03/27/2023 revealed LVEF at 60-65%, RVSP elevated at 4050mmHg, and mild LVH Repeat echo ordered, pending PT/OT consulted Acetaminophen 650 mg p.o. q4h as needed for pain A.m. CBC, BMP (2) Orthostatic hypotension: Plan: Hx of orthostatic hypotension; on midodrine Orthostatic vitals: Supine: 156/89 Sittin/85 Standin/57 (3) Laceration of scalp: Plan: Patient received 3 jam in the ED (4) CKD (chronic kidney disease): Plan: BUN 43, creatinine 1.57 (baseline 1.34), EGFR 39.6 Avoid nephrotoxic agents Monitor daily BMP (5) DMII (diabetes mellitus, type 2): Plan: Last A1c 7.1% on 03/28/2023 Glucose 127 on arrival Patient normally takes long-acting insulin 30u QAM Lantus 15u BID while inpatient SSI; target BSG range 328890cc/dL, CF 30, carb ratio 10 BSG ACHS T2DM diet Adjust regimen as needed AM A1c (6) Interstitial lung disease: Plan: CXR NAF Continue prednisone, CellCept (7) Hypertension: Plan: Continue metoprolol (8) Elevated troponin: Plan: Elevated troponin at 27.1 --> 27.6 Patient did endorse mild chest pain after waking up from fall EKG without ST elevation Continuous telemetry monitoring (9) Hypothyroidism: Plan: Continue levothyroxine (10) GERD (gastroesophageal reflux disease): Plan: Continue famotidine, omeprazole (11) Anxiety: Plan: Continue Xanax, escitalopram (12) Cardiomyopathy: Plan: Continue Lasix, metolazone Plan Disposition: Obs - Admit to MedSurg telemetry DNR/DNI T2DM diet VTE PPx: SCDs (hold chemical DVT PPx in the setting of fall/scalp lac; consider adding on chemical DVT PPx if extended stay) History of Present Illness Chief Complaint: Fall Primary Care Provider: Sallie Mckeon MD Ryan is an 83-year-old male with PMH of recurrent falls/syncope, orthostatic hypotension, CKD, T2DM, HLD, interstitial lung disease, HTN, MR, and cervicalgia. He presented for unexplained fall/collapse the morning of 10/31. No LOC, dizziness, or tripping, and patient denies that his legs gave out on him. Patient is not on blood thinners. He experienced an unexplained collapse the morning of 10/30 around 0630 when walking from the bedroom to the bathroom. He reportedly landed on his face; no LOC, no tripping, no dizziness. He got up right away (not down for an extended period of time). He did not come to the hospital until later in the evening. He then had a second collapse this morning while getting water in the kitchen. He reports that he fell backwards and hit the back of his head on his kitchen table (3 jam placed in the ED). Patient lives alone in a mobile home. He has a walker for ambulation, but reports it is not suitable given the space. He mainly uses his cane, furniture, and grab bars on the carrion for stabilization. Hx of orthostatic hypotension that led to a fall and hospital admission in March 2023; patient was started on midodrine, and reports he has been taking it regularly. He manages his own medications, but he reports he did not take his medications this morning on 10/31. Did not take his insulin this morning. He reports the only recent medication change was increasing his long-acting insulin from 25u --> 30u daily on 10/31. No sick contacts. No tick bites. He has been taking prednisone for the past 5 years for his interstitial lung disease. Of note, the patient was taking Sudafed this week for a sinus infection; last took it Sunday morning 10/20. He also reports that after his fall on 10/31 he had a "burning sensation" in his chest, which he says feels different than his regular heartburn. This pain is worse with movement and bending. Located transverse across the lower chest. Mild hypertension 145/88 at time of admission; vitals otherwise stable. ROS: Patient endorses headaches (chronic daily for many years; does not take medicine for it), lightheadedness when standing, chest discomfort after fall (worse with movement and twist) Patient denies fever, chills, nightsweats, neck pain, changes to vision/hearing/taste/smell, rashes, chest palpitations, SOB, pleuritic CP, abdominal pain, N/V/D, constipation, urinary s/s, dysuria, blood in urine or stool, back pain, numbness/tingling going down legs or arms. He denies PMH of PR, DVT/PE, or CVA Allergies Allergy/AdvReac Type Severity Reaction Status Date / Time Sulfa (Sulfonamide Allergy Severe RASH, Verified 10/31/23 12:51 Antibiotics) HIVES, SWOLLEN MOUTH, THROAT SWELLING lisinopril Allergy Intermediate lethargic Verified 10/31/23 12:51 Penicillins Allergy Intermediate RASH, HIVES Verified 10/31/23 12:51 Home Medications Medication Instructions Recorded Confirmed Type insulin lispro 100 unit/mL 6 unit subcut QPM 01/31/21 10/31/23 History subcutaneous solution (Humalog U-100 Insulin) finasteride 5 mg tablet (Proscar) 5 mg PO QPM 03/26/23 10/31/23 History tamsulosin 0.4 mg capsule 0.4 mg PO DAILY #90 caps 04/06/23 10/31/23 Rx omeprazole 40 mg capsule,delayed 40 mg PO QAM 05/30/23 10/31/23 History release famotidine 40 mg tablet (Pepcid) 40 mg PO HS #90 tabs 07/03/23 10/31/23 Rx metolazone 2.5 mg tablet 2.5 mg PO .COMPLEX #15 tabs 07/24/23 10/31/23 Rx metoprolol succinate 25 mg 25 mg PO QPM #90 tabs 07/25/23 10/31/23 Rx tablet,extended release 24 hr prednisone 10 mg tablet 10 mg PO DAILY #30 tabs 07/25/23 10/31/23 Rx midodrine 5 mg tablet 5 mg PO TID #90 tabs 08/21/23 10/31/23 Rx gabapentin 300 mg capsule 300 mg PO TID #90 caps 08/27/23 10/31/23 Rx mycophenolate mofetil 250 mg 250 mg PO BID #120 caps 08/27/23 10/31/23 Rx capsule (CellCept) levothyroxine 50 mcg tablet 50 mcg PO DAILY #90 tabs 09/20/23 10/31/23 Rx fluticasone propionate 50 1 spray intranasal BID #18.2 mL 10/23/23 10/31/23 Rx mcg/actuation nasal spray,suspension (Flonase Allergy Relief) insulin degludec 100 unit/mL (3 30 unit (0.3 mL) subcut QAM #15 mL 10/30/23 10/31/23 Rx mL) subcutaneous pen (Tresiba FlexTouch U-100 insulin) allopurinol 100 mg tablet 100 mg PO QAM 10/31/23 10/31/23 History alprazolam 0.5 mg tablet (Xanax) 0.25 mg PO HS 10/31/23 10/31/23 History escitalopram oxalate 10 mg tablet 10 mg PO QAM 10/31/23 10/31/23 History furosemide 20 mg tablet 20 mg PO DAILY 10/31/23 10/31/23 History Past Med/Surg History Medical History (Updated 10/31/23 @ 16:42 by Artis Franco PA-C) Cardiomyopathy LV systolic function has normalized. Etiology of CM unknown. Hypothyroidism Anxiety GERD (gastroesophageal reflux disease) Relatively controlled with medication (improved from previous) Recurrent falls History of osteomyelitis left foot Orthostasis Periprosthetic fracture around internal prosthetic joint Fall Cervical spondylosis Migraine Syncope Hx of melanoma of skin RT EAR Low iron Anemia stable per patient Hx of esophageal ulcer Hx of gout Controlled with Allopurinol Hyponatremia Chronic kidney disease, stage III (moderate) BPH (benign prostatic hyperplasia) DMII (diabetes mellitus, type 2) Aortic stenosis Mild AV stenosis on 10/15/20 ECHO "AV opens well" on 05/11/21 ECHO -Per 08/2021 cardio note- noted in 2019 - no significant stenosis on most recent ECHO- known sclerotic AV- "no significant stenosis" Venous insufficiency Interstitial lung disease "HAS NOT USED INHALER FOR A LONG TIME" Breathing stable at rest- mild FONTANEZ with long walks (chronic and unchanged) Cough Accelerated idioventricular rhythm Asymptomatic. Beta-juanjose has been initiated since Holter monitor per cardio records Frequent PVCs FOLLOWED BY DR. 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 - 08/06/19 [facility] [place] of colonoscopy History of esophagogastroduodenoscopy (EGD) with dilation History of wisdom tooth extraction History of tonsillectomy and adenoidectomy History of cardiac cath no stents>YEARS AGO AT [facility] S/P dilatation of esophageal stricture H/O foot surgery RT FOOT History of bilateral knee replacement Family History Father Family history of diabetes mellitus Coronary heart disease Prostate cancer Myocardial infarction Uncle Coronary heart disease Sister Breast cancer Other No family history of adverse response to anesthesia Denies family history of Ovarian cancer Colorectal cancer Social History Smoking Status: Never smoker Second Hand Exposure: No; Do You Dip or Chew Tobacco: No; Tobacco Cessation Education Requested by Patient: No Hx Alcohol Use: No Hx Substance Use: No Preferred Language: Kyrgyz Communication Ability: Effective Visual Impairment: Limited Hearing Ability: Use of Hearing Aid Continuous Dryout Operator Required: No Beliefs That Will Affect Care: None marital status: / Current Living Situation: Alone current occupational status: retired How many Children do You have: 3 Other Information That Helps Us Care for You: No Feels Safe at Home: Yes Safety Concerns: Feels Safe At This Time Childhood Exposure to Second-Hand Smoke: Yes Diet: low carbohydrate and regular caffeine: Yes during the past year weight has: increased > 10 lbs Dental Care, Regularly: Yes Physical Activity Frequency: 1-2 Times per Week Seatbelt Use: always Sunscreen Use: Yes Assistive Devices: Glasses, Walker and Wheelchair Review of Systems Review of Systems: See HPI above Physical Exam Physical Exam: General: no acute distress; pleasant affect; non-toxic appearing; well- nourished; cooperative HEENT: Dark purple bruise below right eye; left posterior scalp laceration with 3 jam; scalp TTP; no scleral icterus; PERRLA w/ EOMs intact; moist mucus membrane; vision grossly intact; hard of hearing Neck: supple; no lymphadenopathy; trachea midline; no shoulder/neck pain with shrugging and rotating the neck bilaterally Skin: warm, dry without signs of tenting; no cyanosis; no rashes, bruising, lesions, or erythema noted CV: chest wall NTP; RRR; S1/S2 normal; no murmurs/rubs/gallops; pulses intact an d symmetric at radial, DP, and PT Lungs: no acute respiratory distress; symmetrical chest wall expansion; mild crackles auscultated in the lower lung flannery posteriorly B/L; no wheezing ABD: Soft, NTP; BS present; no rebound/guarding; no ascites; no distention; negative CVA tenderness; spine NTP; no rashes on the abdomen or back MSK: no tics or fasciculations; no edema noted in the LEs b/l, nonerythematous; patient demonstrates ability to wiggle toes; 5/5 rail loader strength b/l; full active ROM; 5/5 strength in LEs b/l lifting legs off bed at hip Neuro: A&Ox3; normal mood and affect; fluent speech; no focal deficits; sensation grossly intact in the LEs B/L Results & Data Results & Data Vital Signs (Past 12 Hours) Vital Signs Temp Pulse Pulse Resp BP BP Pulse Ox 10/31/23 12:35 59 L 22 138/75 96 10/31/23 11:18 69 10/31/23 10:50 36.6 C 86 20 95/69 L 94 O2 Del Method 10/31/23 12:35 Room Air 10/31/23 11:18 10/31/23 10:50 Room Air Laboratory Results Abnormal lab results 10/31/23 Range/Units 11:32 WBC 14.18 H (4.8-10.8) K/ul RBC 4.09 L (4.70-6.10) M/uL Hgb 12.2 L (14.0-18.0) g/dl Hct 37.3 L (42.0-52.0) % Neut # (Auto) 11.73 H (1.40-6.50) K/uL [place]ell # (Auto) 0.87 H (0.11-0.59) K/uL Sodium 133 L (136-145) mmol/L Chloride 96 L (98-107) mmol/L BUN 43 H (6-23) mg/dl Creatinine 1.57 H (0.6-1.4) mg/dl BUN/Creatinine Ratio 27.4 H (10-20) Glucose 127 H (70-99(Fasting)) mg/dl Troponin I High Sens 27.1 H (0-20) pg/ml Diagnostic Findings Cervical Spine CT 10/31/23 11:[address] DOSE: HISTORY: Neck pain. fall TECHNIQUE: Multiaxial CT images of the cervical spine were performed and reformatted in the sagittal and coronal plane without the use of contrast. A dose lowering technique was utilized adhering to the principles of ALARA. COMPARISON: Cervical spine CT 10/30/2003. FINDINGS: No fractures. Chronic right upper lobe fibrotic change again noted. Moderate to severe degenerative changes again seen within the cervical spine. Mild anterolisthesis at C3-C4 and C4-C5, unchanged. Severe disc space narrowing at C5-C6 and C6-C7. Prevertebral soft tissues and the C1-C2 interval are intact. No pneumothorax. IMPRESSION: No fractures within the cervical spine. ACT 112: Negative or not required by law. Electronically signed by: Artis Ledesma M.D. 10/31/2023 12:[address] 10/31/23 11:01 CT OF THE HEAD WITHOUT CONTRAST CLINICAL HISTORY: fall COMPARISON STUDY: Head CTs May 30, 2023 and October 30, 2023. CT DOSE: 1049.59 mGy.cm TECHNIQUE: Helical axial images of the head were obtained without IV contrast. Automated exposure control was utilized for the study. A dose lowering technique was utilized adhering to the principles of ALARA. FINDINGS: No acute intracranial hemorrhage, midline shift or mass effect is present. The ventricular system is unremarkable. The basal cisterns are patent. No extra-axial collections are present. There are no findings to suggest acute dural sinus thrombosis or acute territorial infarct. The appearance of the brain is unchanged. Left posterior scalp contusion is present. IMPRESSION: 1. No acute intracranial findings. 2. Left posterior scalp contusion. No calvarial fracture. ACT 112: Negative or not required by law. Electronically signed by: Zia Elkins M.D. 10/31/2023 12:01 PM Chest X-Ray 10/31/23 11:56 XR chest 1V portable CLINICAL HISTORY: chest pain after fall TECHNIQUE: Single frontal radiograph of the chest was obtained. Comparison: Comparison is made to chest radiograph 10/23/2023 FINDINGS: Right reverse shoulder arthroplasty is seen. Cardiomegaly is noted. The lungs are clear. No evidence of pleural effusion or pneumothorax. IMPRESSION: No acute chest disease. ACT 112: Negative or not required by law. Electronically signed by: Juan Carlos Velasquez M.D. 10/31/2023 12:50 PM Code Status & VTE Plan Code Status DNR/DNI VTE Prophylaxis Plan VTE Prophylaxis will be ordered: Yes Supervising Physician Co-Signing Physician Notes Patient seen and examined, chart reviewed, case discussed with Artis Franco PA-C and I agree with the assessment and plan as above except as otherwise noted Labs and images reviewed 83yo M with hx of recurrent falls 2/2 orthostasis who presents with a fall. Denies LOC. No dizziness. Tipped backwards and had no room spinning or syncope, but felt off balance and fell. Had a similar fall yesterday after standing and walking to bathroom. Lives alone in a mobile home, has a walker but doesn't use due to space. Was hospitalized in March for a fall and was started on Midodrine for orthostasis which he has been taking reliable. Did take pseudophed this week for sinus congestion. Denies tachycardia. Echo pending. No chest pain, minimal trop elevated with repeat pending. EKG sinus, right bundle branch block with similar morphology compared to March 2023. QTc 488. No evidence of heart block. Patient has a chronic mild leukocytosis with chronic anemia, no thrombocytopenia. This is neutropenic without immature cell expansion. No urinary symptoms, afebrile, no infectious symptoms. Patient has had normal vitamin studies, peripheral smear was performed this past year which was normal. Trended and noted PG Care Time/CCT Total # of Minutes Spent Total Time Spent with Patient: Total time spent is greater than 50% in coordination of care (as documented) at patient's floor/unit and/or counseling patient: Coding [place] [address] INT INP/OBS CARE 3/75MIN Patient Type Established History Comprehensive Exam Comprehensive Medical Decision Making High Complexity Diagnoses Recurrent falls R29.6 Orthostatic hypotension I95.1 Laceration of scalp S01.01XA CKD (chronic kidney disease) N18.9 Type 2 diabetes mellitus with stage 3a chronic kidney disease, with long-term current use of insulin E11.22; N18.31; Z79.4 Chronic kidney disease stage: stage 3 (moderate) Chronic kidney disease stage 3 subtype: stage 3a (GFR 45-59) Diabetes mellitus complication detail: with chronic kidney disease Diabetes mellitus complication status: with kidney complications Diabetes mellitus mcc insulin use: with certified substance abuse counselor use Interstitial lung disease J84.9 Essential hypertension I10 Hypertension type: essential hypertension Elevated troponin R79.89 Hypothyroidism E03.9 GERD (gastroesophageal reflux disease) K21.9 Anxiety F41.9 Cardiomyopathy I42.9 (5) DMII (diabetes mellitus, type 2) Chronic kidney disease stage: stage 3 (moderate) Chronic kidney disease stage 3 subtype: stage 3a (GFR 45-59) Diabetes mellitus complication detail: with chronic kidney disease Diabetes mellitus complication status: with kidney complications Diabetes mellitus certified substance abuse counselor insulin use: with mcc use Qualified Code(s): E11.22 - Type 2 diabetes mellitus with diabetic chronic kidney disease; N18.31 - Chronic kidney disease, stage 3a; Z79.4 - hand marker (current) use of insulin (7) Hypertension Hypertension type: essential hypertension Qualified Code(s): I10 - Essential (primary) hypertension
[2023-10-31 17:17] LABS: Magnesium 1.8 mg/dl (1.7-2.4)
[2023-10-31] MEDS ORDERED: DEXTROSE 50% 50 ML SYRINGE IV PRN (18:58)
[2023-10-31] MEDS ORDERED: GLUCOSE 10 TAB/TUBE PO PRN (18:58)
[2023-10-31] MEDS ORDERED: GLUCOSE 40% GEL 15 GM TUBE PO PRN (18:58)
[2023-10-31] MEDS ORDERED: GLUCAGON FOR INJ 1 MG VIAL SQ PRN (18:58)
[2023-10-31] MEDS ORDERED: CARBOHYDRATES FOR HYPOGLYCEMIA PO PRN (18:58)
[2023-10-31] MEDS: INSULIN ASPART PER UNIT CHARGE SC SCH ×2 (19:43→20:32)
[2023-10-31] MEDS: FLUTICASONE PROPIONATE NA SPR 16 GM BTL SCH (20:34)
[2023-10-31] MEDS: GABAPENTIN 300 MG CAP PO SCH (20:34)
[2023-10-31] MEDS: MYCOPHENOLATE MOFETIL 250 MG CAP PO SCH (20:35)
[2023-10-31] MEDS: LANTUS PER UNIT CHARGE SQ SCH (20:40)
[2023-10-31] MEDS ORDERED: PANTOprazole 40 MG TAB PO ONE (21:00)
[2023-10-31] MEDS ORDERED: ESCITALOPRAM OXALATE 10 MG TAB PO ONE (21:00)
[2023-10-31] MEDS ORDERED: FINASTERIDE 5 MG TAB PO SCH (21:00)
[2023-10-31] MEDS ORDERED: FAMOTIDINE 40 MG TABLET PO SCH (21:00)
[2023-10-31] MEDS ORDERED: METOPROLOL SUCC 25MG EXT REL TAB PO SCH (21:00)
[2023-10-31] MEDS ORDERED: ALPRAZolam 0.25 MG TABLET PO SCH (21:00)
[2023-10-31] MEDS: ACETAMINOPHEN 325 MG TAB PO PRN (22:08)
[2023-11-01 00:47] LABS: Appearance Urine Clear (Clear); Bacteria Urine Automated Negative (Negative); Bilirubin Urine Negative (Negative); Blood Urine Negative (Negative); Cast Urine Automated 0 /lpf (0-5); Color Urine Yellow; Epithelial Cell Urine Auto 0-5 /lpf (0-5); Glucose Urine UA Trace (Negative); Ketones Urine Negative (Negative); Leukocyte Esterase Urine Trace (Negative); Nitrite Urine Negative (Negative); Protein Urine Negative (Negative); RBC Urine Automated 0-4 /hpf (0-4); Specific Gravity Urine 1.012 (1.000-1.030); Urobilinogen Urine Negative (Negative); pH Urine 6.5 (4.5-7.5)
[2023-11-01 06:28] LABS: Basophils # (auto) 0.06 K/uL (0.00-0.20); Basophils % (auto) 0.5 %; Eosinophils # (auto) 0.21 K/uL (0.00-0.50); Eosinophils % (auto) 1.9 %; Hematocrit (blood only) 35.4 % (42.0-52.0); Hemoglobin 11.7 g/dl (14.0-18.0); Immature Granulocytes # (auto) 0.15 K/uL (0.01-0.20); Immature Granulocytes % (auto) 1.4 %; Lymphocytes # (auto) 2.08 K/uL (1.20-3.40); Mean Corpuscular Hemoglobin 30.3 pg (25.0-34.0); Mean Corpuscular Hgb Conc 33.1 g/dL (32.0-36.0); Mean Corpuscular Volume 91.7 fL (80.0-100.0); Mean Platelet Volume 10.8 fL (9.4-12.4); Monocytes # (auto) 1.04 K/uL (0.11-0.59); Monocytes % (auto) 9.5 %; Neutrophils # (auto) 7.39 K/uL (1.40-6.50); Neutrophils % (auto) 67.7 %; Platelet Count 224 K/uL (130-400); RDW Coefficient of Variation 13.9 % (11.5-14.5); RDW Standard Deviation 46.8 fL (36.4-46.3); Red Blood Count 3.86 M/uL (4.70-6.10); White Blood Count 10.93 K/ul (4.8-10.8)
[2023-11-01] MEDS ORDERED: LEVOTHYROXINE SODIUM 50 MCG TABLET PO SCH (06:30)
[2023-11-01 07:07] LABS: BUN Creatinine Ratio 24.5 (10-20); Calcium 8.9 mg/dl (8.6-10.3); Creatinine Clr Calc Pharmacy 38.2 ml/min; Est GFR (African American) 48.1 ml/min; Est GFR (Non-African American) 41.5 ml/min; Potassium 3.4 mmol/L (3.5-5.1)
[2023-11-01 07:22] LABS: Estimated Average Glucose 229 mg/dl; Hemoglobin A1C 9.6 % (4.5-5.6)
[2023-11-01] MEDS ORDERED: LACTATED RINGER'S 250 ML IV ONE (07:38)
[2023-11-01] MEDS ORDERED: TAMSULOSIN HCL 0.4 MG CAP PO SCH (09:00)
[2023-11-01] MEDS ORDERED: predniSONE 10 MG TABLET PO SCH (09:00)
[2023-11-01] MEDS ORDERED: allopurinoL 100 MG TAB PO SCH (09:00)
[2023-11-01] MEDS ORDERED: ESCITALOPRAM OXALATE 10 MG TAB PO SCH (09:00)
[2023-11-01] MEDS ORDERED: PANTOprazole 40 MG TAB PO SCH (09:00)
[2023-11-01] MEDS ORDERED: FUROSEMIDE 20 MG TAB PO SCH (09:00)
[2023-11-01] MEDS: MIDODRINE HCL 2.5 MG TAB PO SCH ×2 (09:03→12:05)
[2023-11-01] MEDS: MYCOPHENOLATE MOFETIL 250 MG CAP PO SCH (09:03)
[2023-11-01] MEDS: GABAPENTIN 300 MG CAP PO SCH ×2 (09:03→13:29)
[2023-11-01] MEDS: POTASSIUM CHLORIDE CRTAB 20 MEQ TABCR PO SCH ×2 (09:03→13:29)
[2023-11-01] MEDS: FLUTICASONE PROPIONATE NA SPR 16 GM BTL SCH (09:04)
[2023-11-01] MEDS: LANTUS PER UNIT CHARGE SQ SCH (09:05)
[2023-11-01] MEDS: INSULIN ASPART PER UNIT CHARGE SC SCH ×2 (09:05→12:53)
[2023-11-01] MEDS: ACETAMINOPHEN 325 MG TAB PO PRN (12:05)
--- NOTE | 2023-11-01 14:38 | Discharge Summary ---
Date of Service November 01, 2023 Admission HPI Per Admitting Provider Ryan is an 83-year-old male with PMH of recurrent falls/syncope, orthostatic hypotension, CKD, T2DM, HLD, interstitial lung disease, HTN, MR, and cervicalgia. He presented for unexplained fall/collapse the morning of 10/31. No LOC, dizziness, or tripping, and patient denies that his legs gave out on him. Patient is not on blood thinners. He experienced an unexplained collapse the morning of 10/30 around 0630 when walking from the bedroom to the bathroom. He reportedly landed on his face; no LOC, no tripping, no dizziness. He got up right away (not down for an extended period of time). He did not come to the hospital until later in the evening. He then had a second collapse this morning while getting water in the kitchen. He reports that he fell backwards and hit the back of his head on his kitchen table (3 jam placed in the ED). Patient lives alone in a mobile home. He has a walker for ambulation, but reports it is not suitable given the space. He mainly uses his cane, furniture, and grab bars on the carrion for stabilization. Hx of orthostatic hypotension that led to a fall and hospital admission in March 2023; patient was started on midodrine, and reports he has been taking it regularly. He manages his own medications, but he reports he did not take his medications this morning on 10/31. Did not take his insulin this morning. He reports the only recent medication change was increasing his long-acting insulin from 25u --> 30u daily on 10/31. No sick contacts. No tick bites. He has been taking prednisone for the past 5 years for his interstitial lung disease. Of note, the patient was taking Sudafed this week for a sinus infection; last took it Sunday morning 10/20. He also reports that after his fall on 10/31 he had a "burning sensation" in his chest, which he says feels different than his regular heartburn. This pain is worse with movement and bending. Located transverse across the lower chest. Mild hypertension 145/88 at time of admission; vitals otherwise stable. ROS: Patient endorses headaches (chronic daily for many years; does not take medicine for it), lightheadedness when standing, chest discomfort after fall (worse with movement and twist) Patient denies fever, chills, nightsweats, neck pain, changes to vision/hearing/taste/smell, rashes, chest palpitations, SOB, pleuritic CP, abdominal pain, N/V/D, constipation, urinary s/s, dysuria, blood in urine or stool, back pain, numbness/tingling going down legs or arms. He denies PMH of SD, DVT/PE, or CVA Principal Diagnosis Orthostatic Hypotension/Syncope Discharge Exam General: A&Ox3. NAD. Cooperative. HEENT: Atraumatic, normocephalic. Pulm: CTAB A&P. -wheezes, -rales, -rhonchi. Symmetrical chest rise. No increased work of breathing. No respiratory distress. Cardiac: RRR, -mrg. Radial pulses intact and symmetrical. Abdominal: Nontender, nondistended, soft. BS present. Discharge Data Allergies Allergy/AdvReac Type Severity Reaction Status Date / Time Sulfa (Sulfonamide Allergy Severe RASH, Verified 10/31/23 12:51 Antibiotics) HIVES, SWOLLEN MOUTH, THROAT SWELLING lisinopril Allergy Intermediate lethargic Verified 10/31/23 12:51 Penicillins Allergy Intermediate RASH, HIVES Verified 10/31/23 12:51 Consultations 10/31/23 14:33 ED Decision to Admit Stat Ordered Studies 10/31/23 11:01 CT cervical spine wo con Stat CT head/brain wo con Stat Hospital Course (1) Recurrent falls: Summary: 83-year-old male with a past medical history of recurrent orthostasis who presented with a syncopal event after standing and walking in his home. Has had similar events in the past, current episode had less of a prodrome than prior episodes of orthostasis. He did not have any acute ischemic changes on his EKG, troponin was minimally elevated without rise. He had no chest pain or chest pressure. Formal orthostatics performed on admission was with significant orthostatic hypotension patient also appeared clinically slightly hypovolemic to near euvolemic. He did not show any signs of pneumonia/UTI or other infection. he is on Lasix and metolazone, has had pitting edema of the lower extremities with some dyspnea on exertion although reports his dyspnea on exertion has been doing fairly well. Patient was suspected to be slightly volume depleted exacerbating his underlying orthostatic hypotension with a narrow euvolemic window. Following fluids and conservative care he normalized and felt well and was able to ambulate 200 feet without assistance day of discharge. Patient was recommended to hold Lasix if he was near euvolemic and not short of breath, overdiuresis likely to contribute to his orthostatics. He is agreeable to this and will also work on lower extremity mobilization strategies as he may have some disproportionate lower extremity edema in addition to his known CHF. fludrocortisone was not recommended due to his history of fluid retention, he was continued on midodrine. While he did not show any dysrhythmia this admission, due to his history of reduced a prodrome, prior PVCs and accelerated ventricular rhythms patient was ordered for a 30-day mobile telemetry with follow-up as outpatient. Butyryl modifications to help minimize risk of falls from orthostasis were discussed with patient by both provider and PT prior to discharge. To do as outpatient: Follow-up reevaluation of volume status, adjust Lasix as needed Continue venous stasis mobilization strategies Complete 30-day mobile telemetry Stable removal, PCP appointment being scheduled by JESSY (2) Orthostatic hypotension: Hx of orthostatic hypotension; on midodrine Orthostatic vitals: Supine: 156/89 Sittin/85 Standin/57 (3) Laceration of scalp: Patient received 3 jam in the ED, to be removed as outpatient (4) CKD (chronic kidney disease): BUN 43, creatinine 1.57 (baseline 1.34), EGFR 39.6 Avoid nephrotoxic agents Monitor daily BMP (5) DMII (diabetes mellitus, type 2): Last A1c 7.1% on 03/28/2023 Glucose 127 on arrival Patient normally takes long-acting insulin 30u QAM Lantus 15u BID while inpatient SSI; target BSG range [id number]/dL, CF 30, carb ratio 10 BSG ACHS T2DM diet Adjust regimen as needed AM A1c (6) Interstitial lung disease: CXR NAF Continue prednisone, CellCept (7) Hypertension: Continue metoprolol (8) Elevated troponin: Elevated troponin at 27.1 --> 27.6 Patient did endorse mild chest pain after waking up from fall EKG without ST elevation Continuous telemetry monitoring (9) Hypothyroidism: Continue levothyroxine (10) GERD (gastroesophageal reflux disease): Continue famotidine, omeprazole (11) Anxiety: Continue Xanax, escitalopram (12) Cardiomyopathy: Continue Lasix, metolazone Total Time Total Time Spent Total Time Spent (In Minutes): Time spend day of discharge 35 minutes including direct patient care, documentation, review of labs and images, and coordination of care. Discharge Plan Discharge Items Patient Disposition: Home - Self-Care Reason For Visit: RECURRENT SYNCOPE Discharge Diagnosis: Orthostatic Syncope Activity: Per Instructions section Non-emergency contact: Primary Care Provider Call non-emergency contact if: you have any medication questions and your symptoms worsen Follow-up/Referrals: Sallie Mckeon MD [Primary Care Provider] - 11/14/23 3:20 pm Diet: Carb Consistent or DM2 Addtl Attending Provider Instructions: You are seen in the hospital for syncope, which felt similar to your prior episodes of orthostasis. Your EKG did not show any acute changes and you did not show an arrhythmia during admission. You had significant orthostatic hypotension with blood pressure drop from normal levels down as low as the 80s which then normalized with rest. Your Lasix and dehydration may worsen this, and the balance between too much volume and edema has to be balanced against too little volume which will make orthostasis worse. You are continued on midodrine. As discussed with you by physical therapy please make sure to allow additional time between position changes and standing prior to walking to help your blood pressure adjust to prevent recurrent episodes of syncope. If you feel that you are dehydrated or not fluid overloaded, you may hold that days dose of Lasix. While your symptoms were likely orthostatic, and you did not show an abnormal heart rhythm during admission a transient arrhythmia could not be completely ruled out. Due to your recurrent symptoms and the sudden onset of this particular episode with much less morning than prior you been recommended to have a 30-day ekg monitor to look for any types of arrhythmia. Please follow-up on the results of this with your primary care physician. A follow-up appointment is being scheduled for you with your PCP Dr. Mckeon for followup re-evaluation and staple removal, please follow-up with her office within 7 to 14 days. An appointment is being scheduled for you by case management if you do not receive a call within the next 2 business days to confirm this appointment please call her office direectly at the number above. If you develop any new or worsening symptoms including fever, chills, sweats, chest pain, chest pressure, difficulty breathing, uncontrolled nausea/vomiting, rash, wheezing, passing out or nearly passing out, bleeding, black/bloody bowel movements, or other new or concerning symptoms please call your primary care physician, or call 911 for re-evaluation in the emergency department if you are very concerned. Pending Studies at Discharge: Yes ([facility]) Stand-Alone Forms: [facility] Hot Hotels, Smoking Cessation Medications and DC Order Prescriptions: Continued tamsulosin 0.4 mg capsule 0.4 mg PO DAILY Qty: 90 3RF famotidine [Pepcid] 40 mg tablet 40 mg PO HS Qty: 90 1RF prednisone 10 mg tablet 10 mg PO DAILY Qty: 30 2RF Rx Instructions: for interstitial lung disease metoprolol succinate 25 mg tablet extended release 24 hr 25 mg PO QPM Qty: 90 1RF midodrine 5 mg tablet 5 mg PO TID Qty: 90 5RF Rx Instructions: do not give last dose of day after 6PM or within 4 hrs of bedtime gabapentin 300 mg capsule 300 mg PO TID Qty: 90 2RF mycophenolate mofetil [CellCept] 250 mg capsule 250 mg PO BID Qty: 120 2RF levothyroxine 50 mcg tablet 50 mcg PO DAILY Qty: 90 1RF insulin lispro [Humalog U-100 Insulin] 100 unit/mL solution 6 unit subcut QPM Patient Comments: TAKES BEFORE EVENING MEAL fluticasone propionate [Flonase Allergy Relief] 50 mcg/actuation spray,suspension 1 spray intranasal BID Qty: 18.2 2RF Rx Instructions: administer into each nostril metolazone 2.5 mg tablet 2.5 mg PO .COMPLEX Qty: 15 2RF Rx Instructions: 2.5 mg orally Twice a week; finasteride [Proscar] 5 mg tablet 5 mg PO QPM allopurinol 100 mg tablet 100 mg PO QAM Rx Instructions: TAKE 1 TABLET BY MOUTH ONCE DAILY IN THE MORNING alprazolam [Xanax] 0.5 mg tablet 0.25 mg PO HS furosemide 20 mg tablet 20 mg PO DAILY escitalopram oxalate 10 mg tablet 10 mg PO QAM Rx Instructions: TAKE 1 TABLET BY MOUTH ONCE DAILY IN THE MORNING omeprazole 40 mg capsule,delayed release(DR/EC) 40 mg PO QAM Rx Instructions: TAKE 1 CAPSULE BY MOUTH ONCE DAILY IN THE MORNING No Action insulin degludec [Tresiba FlexTouch U-100] 100 unit/mL (3 mL) insulin pen 25 unit subcut QAM Qty: 15 3RF Discharge Orders: Discharge Order (Routine); Ordered 11/01/23 Ordered By: Luis Casper Admission Data Admit Date/Time: 10/31/23 16:14 Attending Provider: Luis Casper Admit Provider: Luis Casper Primary Care Provider: Sallie Mckeon Other Interventions: Discharge Summary Assessment (RN) Last Done: 11/01/23 14:32 Coding Level of Care Code 30699 INP/OBS DISCH >30 MIN Diagnoses Recurrent falls R29.6 Orthostatic hypotension I95.1 Laceration of scalp S01.01XA CKD (chronic kidney disease) N18.9 Type 2 diabetes mellitus with stage 3a chronic kidney disease, with long-term current use of insulin E11.22; N18.31; Z79.4 Chronic kidney disease stage: stage 3 (moderate) Chronic kidney disease stage 3 subtype: stage 3a (GFR 45-59) Diabetes mellitus complication detail: with chronic kidney disease Diabetes mellitus complication status: with kidney complications 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
--- NOTE | 2023-11-01 16:32 | XCELERA ---
[id number]
[2023-11-02] MEDS ORDERED: metOLazone 2.5 MG TABLET PO SCH (09:00)
--- NOTE | 2023-11-02 18:59 | Electrocardiogram Report ---
Test Reason : Blood Pressure : / mmHG Vent. Rate : 065 BPM Atrial Rate : 065 BPM P-R Int : 152 ms QRS Dur : 170 ms QT Int : 470 ms P-R-T Axes : 048 -37 006 degrees QTc Int : 488 ms Sinus rhythm with Premature atrial complexes in a pattern of bigeminy Left axis deviation Right bundle branch block Abnormal ECG When compared with ECG of 26-MAR-2023 16:27, Premature atrial complexes are now Present Confirmed by Severo South ([id number]) on 11/02/2023 6:58:58 PM Referred By: Confirmed By:Severo South
== END 2023-11-01 15:26 | disposition home or self-care (01) ==
LOC: 2W 10:34 → ED 10:34 → 2W 19:10

== ENCOUNTER 2024-03-02 21:26 | Inpatient (IN) ==
[2024-03-02 22:00] LABS: Basophils % (auto) 0.5 %; Hematocrit (blood only) 38.5 % (42.0-52.0); Hemoglobin 12.7 g/dl (14.0-18.0); Immature Granulocytes # (auto) 0.11 K/uL (0.01-0.20); Immature Granulocytes % (auto) 0.5 %; Lymphocytes # (auto) 1.01 K/uL (1.20-3.40); Mean Corpuscular Hemoglobin 30.1 pg (25.0-34.0); Mean Corpuscular Volume 91.2 fL (80.0-100.0); Mean Platelet Volume 10.4 fL (9.4-12.4); Monocytes # (auto) 1.16 K/uL (0.11-0.59); Monocytes % (auto) 5.8 %; Neutrophils # (auto) 17.67 K/uL (1.40-6.50); Neutrophils % (auto) 88.2 %; Platelet Count 325 K/uL (130-400); RDW Coefficient of Variation 14.2 % (11.5-14.5); Red Blood Count 4.22 M/uL (4.70-6.10); White Blood Count 20.05 K/ul (4.8-10.8)
[2024-03-02 22:07] LABS: Base Excess VBG 1.7 mEq/L; HCO3 VBG 24 mmol/L; Oxygen Saturation VBG 84.6 %; PCO2 VBG 32 mmHg (38-50); PO2 VBG 51 mmHg; pH VBG 7.49 (7.36-7.41)
[2024-03-02] MEDS: ONDANSETRON INJ 2 MG/ML 2 ML VIAL IV STA (22:11)
[2024-03-02] MEDS: ACETAMINOPHEN 1,000 MG/100 ML VIAL IV STA (22:11)
[2024-03-02] MEDS: SODIUM CHLORIDE 0.9% 1,000 ML IV ONE (22:12)
--- NOTE | 2024-03-02 22:12 | Emergency Department Note ---
Impression & Plan Abdominal pain, CKD (chronic kidney disease), Interstitial lung disease, Elevated troponin, Acute hypotension, Nausea & vomiting ED Provider Note Provider: Cyril Dodson MD DATE OF SERVICE: 03/02/2024 CHIEF COMPLAINT: Abdominal pain nausea and vomiting HISTORY OF PRESENT ILLNESS: Patient is a 84-year-old gentleman past medical history significant for CKD, type 2 diabetes, interstitial lung disease on chronic oxygen at night, hypertension, aortic stenosis presenting here today with onset this morning at 7 AM when he woke up with significant diffuse abdominal pain with nausea and vomiting. No diarrhea. Not been able to keep anything down today including his medications. Only on midodrine. Has not fallen or suffered significant trauma by report. No fevers reported. No other sick contacts reported. No history of abdominal surgeries per the patient. Does report he feels a bit more short of breath than normal as well. Alerted by nursing as his blood pressure decreased here. reports he has a history of orthostasis in the past. PAST MEDICAL HISTORY: As noted above MEDICATIONS: Reviewed home medications but unable to keep down today SOCIAL HISTORY: PHYSICAL EXAM: GENERAL: alert and oriented in fatigued appearance somewhat tachypneic Head: normocephalic and atraumatic EYES: No injection, discharge or icterus. PERRL, EOMI. NECK: Trachea midline. Supple. ENT: Mucous membranes pink and moist. LUNGS: Airway patent. No retractions. Breath sounds clear but with some tachypnea HEART: Regular rate and rhythm. No chest wall tenderness ABDOMEN: Soft but somewhat distended with mild diffuse tenderness. SKIN: Acyanotic, warm, dry, without rashes EXTREMITIES: Without swelling, tenderness or deformity NEUROLOGICAL: No focal deficits. No aphasia. No facial droop or slurred speech. EK beats minute sinus rhythm with sinus arrhythmia. Right bundle branch block left intrafascicular block noted. No acute ST segment elevation. QTc 47. CONTINUOUS CARDIAC MONITORING: was ordered and showed a heart rate of bpm in 1 view chest x-ray per interpretation: No evidence of obvious free air or significant pneumonia pneumothorax noted. 1 view KUB per my interpretation: No obvious obstructive bowel loops noted. Patient's laboratory studies and imaging reviewed. Differential includes Appendicitis, diverticulitis, UTI, obstruction, mesenteric ischemia, aortic pathology, inflammatory bowel disease, renal colic, PUD, pancreatitis, biliary pathology, hernia, volvulus, constipation, cardiac etiologies, PE, pneumonia, CHF as well as other pathologies. IMPRESSION/MEDICAL DECISION MAKING: Hypertensive alerted by nursing staff. Given some IV fluids here 1 L ordered. Will be careful given his history of fluid overload and aortic stenosis. Has not take his medications may be contributing. Diffuse pain but significant nausea and vomiting today. Given some IV Tylenol Zofran for symptoms. Chest x- ray KUB ordered as well as [id number] labs and blood work. History of CKD. Discussed with patient as well as family that even though he has CKD would proceed with contrasted scans to exclude occult abnormality especially given his significant abdominal discomfort. They were in agreement. [id number] creatinine slightly higher than normal at 1.9 today from baseline around 1.5. Blood work VBG without acidosis and a CO2 of 32. Leukocytosis of 20 noted today with hemoglobin 12.7. Lactate normal at 1.8. Mild hyponatremia of 132. Follow creatinine 1.68 just above baseline. Total bilirubin normal. Procalcitonin elevated 1.68. Given his presentation will cover broadly. Confirms a significant allergy to penicillins with rash. Also sulfa allergy. Given his hypotensive and leukocytosis with elevated procalcitonin will cover broadly with vancomycin and ertapenem. Troponin minimally elevated 65 likely more demand. No signs of pancreatitis based on lab. CT report from radiology of the abdomen pelvis without acute findings noted in particular it does not note per report any free air or fluid or evidence of bowel obstruction or mucosal thickening. No aortic aneurysm noted. Mild mesenteric edema reported. CTA of the chest per radiology without evidence of acute PE. Radiologist report does not document any significant consolidation but fibrotic changes probably consistent with his ILD. Patient declined Maier catheter or straight cath here still awaiting urine sample. Given additional 500 cc bolus brought patient's blood pressure dropped into the 60s systolic. Started on peripheral norepinephrine. Patient's blood pressure does improve on low-dose norepinephrine. CT reports as above by the radiologist without specific etiology to explain symptomatologies. Did reach out to the ICU hospitalist given the patient's blood pressure and norepinephrine usage to discuss admission and further care. Discussed with the ICU cortisol level was added on to determine if steroids may be helpful given his chronic usage and hypotension here today. Again cover broadly with vancomycin and cefepime at this time. Patient denies severe pain or nausea on reassessment still with a little bit of lower abdominal discomfort. Respiratory viral panel negative. DIAGNOSIS: Abdominal pain, nausea and vomiting, sepsis, hypotension, elevated troponin DISPOSITION: Hospitalist will evaluate Patient was agreeable with this plan. Critical Care I have personally spent 46 minutes of critical care time in the direct management of this patient. This includes bedside care, interpretation of diagnostic studies, and testing, discussion with consultants, patient, and family members, and other required patient management activities. These 46 minutes is in excess of all separately billable procedures. Past Med/Surg History Medical History (Updated 03/03/24 @ 01:36 by Cyril Dodson M.D.) Orthostatic hypotension Cardiomyopathy LV systolic function has normalized. Etiology of CM unknown. Hypothyroidism Anxiety GERD (gastroesophageal reflux disease) Relatively controlled with medication (improved from previous) Recurrent falls History of osteomyelitis left foot Periprosthetic fracture around internal prosthetic joint Cervical spondylosis Migraine Hx of melanoma of skin RT EAR Low iron Anemia stable per patient Hx of esophageal ulcer Hx of gout Controlled with Allopurinol Hyponatremia Chronic kidney disease, stage III (moderate) BPH (benign prostatic hyperplasia) DMII (diabetes mellitus, type 2) Aortic stenosis Mild AV stenosis on 10/15/20 ECHO "AV opens well" on 05/11/21 ECHO -Per 08/2021 cardio note- noted in 2019 - no significant stenosis on most recent ECHO- known sclerotic AV- "no significant stenosis" Venous insufficiency Interstitial lung disease "HAS NOT USED INHALER FOR A LONG TIME" Breathing stable at rest- mild FONTANEZ with long walks (chronic and unchanged) Accelerated idioventricular rhythm Asymptomatic. Beta-juanjose has been initiated since Holter monitor per cardio records Frequent PVCs FOLLOWED BY DR. 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 - 08/06/19 [facility] [place] History of colonoscopy History of esophagogastroduodenoscopy (EGD) with dilation History of wisdom tooth extraction History of tonsillectomy and adenoidectomy History of cardiac cath no stents>YEARS AGO AT [facility] S/P dilatation of esophageal stricture H/O foot surgery RT FOOT History of bilateral knee replacement Family History Father Family history of diabetes mellitus Coronary heart disease Prostate cancer Myocardial infarction Uncle Coronary heart disease Sister Breast cancer Other No family history of adverse response to anesthesia Denies family history of Ovarian cancer Colorectal cancer Social History Smoking Status: Never smoker Second Hand Exposure: No; Do You Dip or Chew Tobacco: No; Hx Alcohol Use: No Hx Substance Use: No Preferred Language: Romansh Communication Ability: Effective Visual Impairment: Limited Hearing Ability: Use of Hearing Aid Motion Study Technician Required: No Beliefs That Will Affect Care: None marital status: / Current Living Situation: Alone current occupational status: retired How many Children do You have: 3 Feels Safe at Home: Yes Childhood Exposure to Second-Hand Smoke: Yes Diet: low carbohydrate and regular caffeine: Yes during the past year weight has: increased > 10 lbs Dental Care, Regularly: Yes Physical Activity Frequency: 1-2 Times per Week Seatbelt Use: always Sunscreen Use: Yes Assistive Devices: Cane and Walker Allergies Allergies Allergy/AdvReac Type Severity Reaction Status Date / Time Sulfa (Sulfonamide Allergy Severe RASH, Verified 03/03/24 00:11 Antibiotics) HIVES, SWOLLEN MOUTH, THROAT SWELLING lisinopril Allergy Intermediate lethargic Verified 03/03/24 00:11 Penicillins Allergy Intermediate RASH, HIVES Verified 03/03/24 00:11 Home Meds Home Medications Medication Instructions Recorded Confirmed omeprazole 40 mg capsule,delayed 40 mg PO QAM 05/30/23 03/03/24 release allopurinol 100 mg tablet 100 mg PO QAM 10/31/23 03/03/24 escitalopram oxalate 10 mg tablet 10 mg PO QAM 10/31/23 03/03/24 aspirin 81 mg tablet,delayed 81 mg PO DAILY 12/13/23 03/03/24 release (Adult Aspirin Regimen) insulin degludec 100 unit/mL (3 28 unit subcut QAM 01/16/24 03/03/24 mL) subcutaneous pen (Tresiba FlexTouch U-100 insulin) Previous Rx's Medication Instructions Recorded tamsulosin 0.4 mg capsule 0.4 mg PO DAILY #90 caps 04/06/23 levothyroxine 50 mcg tablet 50 mcg PO DAILY #90 tabs 09/20/23 fluticasone propionate 50 1 spray intranasal BID #18.2 mL 10/23/23 mcg/actuation nasal spray,suspension (Flonase Allergy Relief) blood-glucose sensor (FreeStyle #2 ea 11/08/23 Vanessa 3 Sensor device) famotidine 40 mg tablet (Pepcid) 40 mg PO HS #90 tabs 11/14/23 pen needle, diabetic 32 gauge x #100 ea 11/27/23" (BD Ultra-Fine Vale Pen Needle) metoprolol succinate 25 mg 25 mg PO QPM #90 tabs 12/11/23 tablet,extended release 24 hr finasteride 5 mg tablet (Proscar) 5 mg PO QPM #90 tabs 01/09/24 gabapentin 300 mg capsule 300 mg PO TID #90 caps 01/09/24 prednisone 10 mg tablet 10 mg PO DAILY #30 tabs 01/09/24 insulin lispro 100 unit/mL 6 unit (0.06 mL) subcut QPM #10 mL 01/22/24 subcutaneous pen (Humalog KwikPen (U-100) Insulin) tirzepatide 5 mg/0.5 mL 5 mg (0.5 mL) subcut WK #2 mL 02/04/24 subcutaneous pen injector alprazolam 0.5 mg tablet (Xanax) 0.25 mg (1/2 x 0.5 mg) PO HS #15 02/06/24 tabs midodrine 5 mg tablet 5 mg PO TID #270 tabs 02/06/24 mycophenolate mofetil 250 mg 250 mg PO BID #120 caps 02/08/24 capsule (CellCept) Results & Data (ED) Vital Signs Vital Signs - 24 hr 03/02/24 21:32 03/02/24 21:40 03/02/24 21:40 Temperature 36.7 C Temperature Source Oral Pulse Rate 95 H 106 H 101 H Pulse Rate from SpO2 Sensor 96 H 98 H Respiratory Rate 23 18 15 Respiratory Effort / Characteristics Non-Labored Respiratory Depth Normal Respiratory Pattern Regular Blood Pressure 135/87 Blood Pressure Mean 103 Blood Pressure Position Sitting Pulse Oximetry 95 96 96 Oxygen Delivery Method Nasal Cannula Oxygen Flow Rate 3 Sepsis Recent Fever Within 48 Hours No Sepsis New/Unexplained Change in Mental Status No Sepsis Action Taken by Nursing No Action Required 03/02/24 21:47 03/02/24 21:47 03/02/24 21:47 Temperature Temperature Source Pulse Rate 98 H 101 H Pulse Rate from SpO2 Sensor 101 H Respiratory Rate 16 Respiratory Effort / Characteristics Respiratory Depth Respiratory Pattern Blood Pressure Blood Pressure Mean Blood Pressure Position Pulse Oximetry 96 96 Oxygen Delivery Method Nasal Cannula Oxygen Flow Rate 3 Sepsis Recent Fever Within 48 Hours Sepsis New/Unexplained Change in Mental Status Sepsis Action Taken by Nursing 03/02/24 21:47 03/02/24 21:48 03/02/24 21:48 Temperature Temperature Source Pulse Rate 101 H 98 H 98 H Pulse Rate from SpO2 Sensor 100 H Respiratory Rate 16 21 21 Respiratory Effort / Characteristics Respiratory Depth Respiratory Pattern Blood Pressure 59/48 L 61/48 L Blood Pressure Mean 51 52 Blood Pressure Position Pulse Oximetry 96 96 96 Oxygen Delivery Method Oxygen Flow Rate Sepsis Recent Fever Within 48 Hours Sepsis New/Unexplained Change in Mental Status Sepsis Action Taken by Nursing 03/02/24 21:49 03/02/24 21:49 03/02/24 21:50 Temperature Temperature Source Pulse Rate 99 H 99 H 102 H Pulse Rate from SpO2 Sensor 100 H 101 H Respiratory Rate 16 16 22 Respiratory Effort / Characteristics Respiratory Depth Respiratory Pattern Blood Pressure 75/59 L Blood Pressure Mean 62 Blood Pressure Position Pulse Oximetry 96 96 96 Oxygen Delivery Method Nasal Cannula Oxygen Flow Rate 3 Sepsis Recent Fever Within 48 Hours Sepsis New/Unexplained Change in Mental Status Sepsis Action Taken by Nursing 03/02/24 21:52 03/02/24 21:52 03/02/24 22:00 Temperature Temperature Source Pulse Rate 99 H 99 H 112 H Pulse Rate from SpO2 Sensor Respiratory Rate 22 22 19 Respiratory Effort / Characteristics Respiratory Depth Respiratory Pattern Blood Pressure 82/50 L Blood Pressure Mean 58 Blood Pressure Position Pulse Oximetry 96 Oxygen Delivery Method Nasal Cannula Oxygen Flow Rate 3 Sepsis Recent Fever Within 48 Hours Sepsis New/Unexplained Change in Mental Status Sepsis Action Taken by Nursing 03/02/24 22:00 03/02/24 22:10 03/02/24 22:15 Temperature Temperature Source Pulse Rate 112 H 91 H 96 H Pulse Rate from SpO2 Sensor 90 96 H Respiratory Rate 19 21 19 Respiratory Effort / Characteristics Respiratory Depth Respiratory Pattern Blood Pressure 86/53 L Blood Pressure Mean 58 Blood Pressure Position Pulse Oximetry 95 98 Oxygen Delivery Method Oxygen Flow Rate Sepsis Recent Fever Within 48 Hours Sepsis New/Unexplained Change in Mental Status Sepsis Action Taken by Nursing 03/02/24 22:15 03/02/24 22:20 03/02/24 22:40 Temperature Temperature Source Pulse Rate 96 H 87 93 H Pulse Rate from SpO2 Sensor 90 Respiratory Rate 19 18 25 H Respiratory Effort / Characteristics Respiratory Depth Respiratory Pattern Blood Pressure 94/65 L Blood Pressure Mean 87 Blood Pressure Position Pulse Oximetry 98 95 Oxygen Delivery Method Nasal Cannula Oxygen Flow Rate 3 Sepsis Recent Fever Within 48 Hours Sepsis New/Unexplained Change in Mental Status Sepsis Action Taken by Nursing 03/02/24 22:41 03/02/24 22:41 03/02/24 22:45 Temperature Temperature Source Pulse Rate 109 H 109 H 92 H Pulse Rate from SpO2 Sensor 94 H Respiratory Rate 20 20 27 H Respiratory Effort / Characteristics Respiratory Depth Respiratory Pattern Blood Pressure 82/56 L Blood Pressure Mean 66 Blood Pressure Position Pulse Oximetry 97 Oxygen Delivery Method Oxygen Flow Rate Sepsis Recent Fever Within 48 Hours Sepsis New/Unexplained Change in Mental Status Sepsis Action Taken by Nursing 03/02/24 22:45 03/02/24 22:46 03/02/24 22:46 Temperature Temperature Source Pulse Rate 92 H 92 H 92 H Pulse Rate from SpO2 Sensor 94 H Respiratory Rate 27 H 25 H 25 H Respiratory Effort / Characteristics Respiratory Depth Respiratory Pattern Blood Pressure 67/51 L 76/50 L Blood Pressure Mean 56 62 Blood Pressure Position Pulse Oximetry 97 98 98 Oxygen Delivery Method Nasal Cannula Nasal Cannula Oxygen Flow Rate 3 3 Sepsis Recent Fever Within 48 Hours Sepsis New/Unexplained Change in Mental Status Sepsis Action Taken by Nursing 03/02/24 22:47 03/02/24 22:47 03/02/24 22:50 Temperature Temperature Source Pulse Rate 96 H 96 H 91 H Pulse Rate from SpO2 Sensor 94 H 94 H Respiratory Rate 22 22 18 Respiratory Effort / Characteristics Respiratory Depth Respiratory Pattern Blood Pressure 72/56 L Blood Pressure Mean 62 Blood Pressure Position Pulse Oximetry 99 99 99 Oxygen Delivery Method Oxygen Flow Rate Sepsis Recent Fever Within 48 Hours Sepsis New/Unexplained Change in Mental Status Sepsis Action Taken by Nursing 03/02/24 22:51 03/02/24 22:51 03/02/24 22:51 Temperature Temperature Source Pulse Rate 91 H 91 H Pulse Rate from SpO2 Sensor 92 H Respiratory Rate 18 18 Respiratory Effort / Characteristics Respiratory Depth Respiratory Pattern Blood Pressure 73/54 L 73/54 L Blood Pressure Mean 65 65 Blood Pressure Position Pulse Oximetry 97 97 Oxygen Delivery Method Oxygen Flow Rate Sepsis Recent Fever Within 48 Hours Sepsis New/Unexplained Change in Mental Status Sepsis Action Taken by Nursing 03/02/24 22:54 03/02/24 22:54 03/02/24 22:59 Temperature Temperature Source Pulse Rate Pulse Rate from SpO2 Sensor 94 H 94 H Respiratory Rate 21 21 Respiratory Effort / Characteristics Respiratory Depth Respiratory Pattern Blood Pressure 63/50 L 77/56 L Blood Pressure Mean 57 66 Blood Pressure Position Pulse Oximetry 95 95 Oxygen Delivery Method Oxygen Flow Rate Sepsis Recent Fever Within 48 Hours Sepsis New/Unexplained Change in Mental Status Sepsis Action Taken by Nursing 03/02/24 22:59 03/02/24 22:59 03/02/24 23:00 Temperature Temperature Source Pulse Rate 94 H Pulse Rate from SpO2 Sensor 92 H 96 H Respiratory Rate 20 18 Respiratory Effort / Characteristics Respiratory Depth Respiratory Pattern Blood Pressure 77/56 L Blood Pressure Mean 66 Blood Pressure Position Pulse Oximetry 96 99 Oxygen Delivery Method Oxygen Flow Rate Sepsis Recent Fever Within 48 Hours Sepsis New/Unexplained Change in Mental Status Sepsis Action Taken by Nursing 03/02/24 23:00 03/02/24 23:04 03/02/24 23:04 Temperature Temperature Source Pulse Rate 95 H 95 H Pulse Rate from SpO2 Sensor 96 H 98 H Respiratory Rate 18 20 20 Respiratory Effort / Characteristics Respiratory Depth Respiratory Pattern Blood Pressure 117/68 95/68 L Blood Pressure Mean 79 83 Blood Pressure Position Pulse Oximetry 99 98 98 Oxygen Delivery Method Oxygen Flow Rate Sepsis Recent Fever Within 48 Hours Sepsis New/Unexplained Change in Mental Status Sepsis Action Taken by Nursing 03/02/24 23:10 03/02/24 23:12 03/02/24 23:12 Temperature Temperature Source Pulse Rate 93 H 102 H 102 H Pulse Rate from SpO2 Sensor 92 H 100 H Respiratory Rate 20 18 18 Respiratory Effort / Characteristics Respiratory Depth Respiratory Pattern Blood Pressure 96/70 L Blood Pressure Mean 80 Blood Pressure Position Pulse Oximetry 97 97 97 Oxygen Delivery Method Oxygen Flow Rate Sepsis Recent Fever Within 48 Hours Sepsis New/Unexplained Change in Mental Status Sepsis Action Taken by Nursing 03/02/24 23:15 03/02/24 23:15 03/02/24 23:30 Temperature Temperature Source Pulse Rate 96 H 96 H 94 H Pulse Rate from SpO2 Sensor 94 H 93 H Respiratory Rate 20 20 17 Respiratory Effort / Characteristics Respiratory Depth Respiratory Pattern Blood Pressure 93/60 L Blood Pressure Mean 63 Blood Pressure Position Pulse Oximetry 97 97 97 Oxygen Delivery Method Oxygen Flow Rate Sepsis Recent Fever Within 48 Hours Sepsis New/Unexplained Change in Mental Status Sepsis Action Taken by Nursing 03/02/24 23:32 03/02/24 23:32 03/02/24 23:45 Temperature Temperature Source Pulse Rate 93 H 93 H 78 Pulse Rate from SpO2 Sensor 93 H 95 H Respiratory Rate 19 19 28 H Respiratory Effort / Characteristics Respiratory Depth Respiratory Pattern Blood Pressure 83/52 L Blood Pressure Mean 62 Blood Pressure Position Pulse Oximetry 96 96 96 Oxygen Delivery Method Nasal Cannula Oxygen Flow Rate 3 Sepsis Recent Fever Within 48 Hours Sepsis New/Unexplained Change in Mental Status Sepsis Action Taken by Nursing 03/02/24 23:46 03/02/24 23:46 Temperature Temperature Source Pulse Rate Pulse Rate from SpO2 Sensor 93 H 93 H Respiratory Rate 23 23 Respiratory Effort / Characteristics Respiratory Depth Respiratory Pattern Blood Pressure 76/55 L Blood Pressure Mean 64 Blood Pressure Position Pulse Oximetry 97 97 Oxygen Delivery Method Oxygen Flow Rate Sepsis Recent Fever Within 48 Hours Sepsis New/Unexplained Change in Mental Status Sepsis Action Taken by Nursing Laboratory Data 03/02/24 21:36 03/02/24 22:56 Lab Results 03/02/24 03/02/24 03/02/24 Range/Units 21:36 21:48 21:53 WBC 20.05 H (4.8-10.8) K/ul RBC 4.22 L (4.70-6.10) M/uL Hgb 12.7 L (14.0-18.0) g/dl POC Hgb (14.0-18.0) g/dl Hct 38.5 L (42.0-52.0) % POC Hct (42-52) % MCV 91.2 (80.0-100.0) fL MCH 30.1 (25.0-34.0) pg MCHC 33.0 (32.0-36.0) g/dL RDW Std Deviation 47.0 H (36.4-46.3) fL RDW Coeff of Graham 14.2 (11.5-14.5) % Plt Count 325 (130-400) K/uL MPV 10.4 (9.4-12.4) fL Immature Gran % (Auto) 0.5 % Neut % (Auto) 88.2 % Lymph % (Auto) 5.0 % [place] % (Auto) 5.8 % Eos % (Auto) 0.0 % Baso % (Auto) 0.5 % Neut # (Auto) 17.67 H (1.40-6.50) K/uL Lymph # (Auto) 1.01 L (1.20-3.40) K/uL [place] # (Auto) 1.16 H (0.11-0.59) K/uL Eos # (Auto) 0.00 (0.00-0.50) K/uL Baso # (Auto) 0.10 (0.00-0.20) K/uL Immature Gran # (Auto) 0.11 (0.01-0.20) K/uL PT 11.2 (9.0-12.0) Seconds INR 1.0 (0.9-1.1) APTT 27 (21-31) Seconds PTT Ratio 1.0 VBG pH 7.49 H (7.36-7.41) VBG pCO2 32 L (38-50) mmHg VBG pO2 51 mmHg VBG HCO3 24 mmol/L VBG O2 Saturation 84.6 % VBG Base Excess 1.7 mEq/L POC Sodium (135-144) mmol/L Sodium 132 L (136-145) mmol/L POC Potassium (3.3-5.0) mmol/L Potassium TNP POC Chloride (101-112) mmol/L Chloride 96 L (98-107) mmol/L Carbon Dioxide 26 (21-32) mmol/L POC Total CO2 (24-31) mmol/L Anion Gap 10 (3-11) POC Anion Gap (16-25) mmol/L POC BUN (7-18) mg/dl BUN 25 H (6-23) mg/dl Creatinine 1.68 H (0.6-1.4) mg/dl POC Creatinine (0.6-1.3) mg/dl Est Cr Clr Drug Dosing 34.4 ml/min Est GFR ( Amer) 42.0 ml/min Est GFR (Non-Af Amer) 36.2 ml/min BUN/Creatinine Ratio 14.9 (10-20) Glucose 106 H (70-99(Fasting)) mg/dl POC Glucose (other) (70-99) mg/dl Lactate 1.8 (0.4-2.0) mmol/L Calcium 8.9 (8.6-10.3) mg/dl POC Ioniz Calcium Won (1.12-1.32) mmol/l Magnesium 1.7 (1.7-2.4) mg/dl Total Bilirubin 0.5 (0.2-1.0) mg/dl Direct Bilirubin TNP AST TNP ALT 14 (7-52) U/L Alkaline Phosphatase 64 (34-104) U/L Troponin I High Sens 65.3 H* (0-20) pg/ml Total Protein 6.4 (6.0-8.3) gm/dl Albumin 3.6 (3.4-5.0) gm/dl Lipase 7 L (11-82) U/L Procalcitonin 1.68 H (0-0.5) ng/ml Adenovirus (PCR) (NotDetected) B. pertussis DNA (PCR) (NotDetected) B.parapertussis DNA PCR (NotDetected) C. pneumoniae DNA (PCR) (NotDetected) Coronavirus OC43 (PCR) (NotDetected) Coronavirus HKU1 (PCR) (NotDetected) Coronavirus 229E (PCR) (NotDetected) SARS-CoV-2 (PCR) (NotDetected) Coronavirus NL63 (PCR) (NotDetected) Human Metapneumovir PCR (NotDetected) Influenza Type A (PCR) (NotDetected) Influenza Type B (PCR) (NotDetected) M. pneumoniae (PCR) (NotDetected) Parainfluenza 1 (PCR) (NotDetected) Parainfluenza 2 (PCR) (NotDetected) Parainfluenza 3 (PCR) (NotDetected) Parainfluenza 4 (PCR) (NotDetected) RSV (PCR) (NotDetected) Entero/Rhino (PCR) (NotDetected) Blood Type Antibody Screen 03/02/24 03/02/24 03/02/24 Range/Units 21:57 22:01 22:56 WBC (4.8-10.8) K/ul RBC (4.70-6.10) M/uL Hgb (14.0-18.0) g/dl POC Hgb 12.2 L (14.0-18.0) g/dl Hct (42.0-52.0) % POC Hct 36 L (42-52) % MCV (80.0-100.0) fL MCH (25.0-34.0) pg MCHC (32.0-36.0) g/dL RDW Std Deviation (36.4-46.3) fL RDW Coeff of Graham (11.5-14.5) % Plt Count (130-400) K/uL MPV (9.4-12.4) fL Immature Gran % (Auto) % Neut % (Auto) % Lymph % (Auto) % [place] % (Auto) % Eos % (Auto) % Baso % (Auto) % Neut # (Auto) (1.40-6.50) K/uL Lymph # (Auto) (1.20-3.40) K/uL [place] # (Auto) (0.11-0.59) K/uL Eos # (Auto) (0.00-0.50) K/uL Baso # (Auto) (0.00-0.20) K/uL Immature Gran # (Auto) (0.01-0.20) K/uL PT (9.0-12.0) Seconds INR (0.9-1.1) APTT (21-31) Seconds PTT Ratio VBG pH (7.36-7.41) VBG pCO2 (38-50) mmHg VBG pO2 mmHg VBG HCO3 mmol/L VBG O2 Saturation % VBG Base Excess mEq/L POC Sodium 131 L (135-144) mmol/L Sodium (136-145) mmol/L POC Potassium 4.4 (3.3-5.0) mmol/L Potassium 4.0 POC Chloride 97 L (101-112) mmol/L Chloride (98-107) mmol/L Carbon Dioxide (21-32) mmol/L POC Total CO2 25 (24-31) mmol/L Anion Gap (3-11) POC Anion Gap 15.0 L (16-25) mmol/L POC BUN 24 H (7-18) mg/dl BUN (6-23) mg/dl Creatinine (0.6-1.4) mg/dl POC Creatinine 1.9 H (0.6-1.3) mg/dl Est Cr Clr Drug Dosing ml/min Est GFR ( Amer) ml/min Est GFR (Non-Af Amer) ml/min BUN/Creatinine Ratio (10-20) Glucose (70-99(Fasting)) mg/dl POC Glucose (other) 100 H (70-99) mg/dl Lactate (0.4-2.0) mmol/L Calcium (8.6-10.3) mg/dl POC Ioniz Calcium Won 1.09 L (1.12-1.32) mmol/l Magnesium (1.7-2.4) mg/dl Total Bilirubin (0.2-1.0) mg/dl Direct Bilirubin 0.1 AST 14 ALT (7-52) U/L Alkaline Phosphatase (34-104) U/L Troponin I High Sens (0-20) pg/ml Total Protein (6.0-8.3) gm/dl Albumin (3.4-5.0) gm/dl Lipase (11-82) U/L Procalcitonin (0-0.5) ng/ml Adenovirus (PCR) (NotDetected) B. pertussis DNA (PCR) (NotDetected) B.parapertussis DNA PCR (NotDetected) C. pneumoniae DNA (PCR) (NotDetected) Coronavirus OC43 (PCR) (NotDetected) Coronavirus HKU1 (PCR) (NotDetected) Coronavirus 229E (PCR) (NotDetected) SARS-CoV-2 (PCR) (NotDetected) Coronavirus NL63 (PCR) (NotDetected) Human Metapneumovir PCR (NotDetected) Influenza Type A (PCR) (NotDetected) Influenza Type B (PCR) (NotDetected) M. pneumoniae (PCR) (NotDetected) Parainfluenza 1 (PCR) (NotDetected) Parainfluenza 2 (PCR) (NotDetected) Parainfluenza 3 (PCR) (NotDetected) Parainfluenza 4 (PCR) (NotDetected) RSV (PCR) (NotDetected) Entero/Rhino (PCR) (NotDetected) Blood Type O Positive Antibody Screen NEGATIVE 03/02/24 Range/Units 23:14 WBC (4.8-10.8) K/ul RBC (4.70-6.10) M/uL Hgb (14.0-18.0) g/dl POC Hgb (14.0-18.0) g/dl Hct (42.0-52.0) % POC Hct (42-52) % MCV (80.0-100.0) fL MCH (25.0-34.0) pg MCHC (32.0-36.0) g/dL RDW Std Deviation (36.4-46.3) fL RDW Coeff of Graham (11.5-14.5) % Plt Count (130-400) K/uL MPV (9.4-12.4) fL Immature Gran % (Auto) % Neut % (Auto) % Lymph % (Auto) % [place] % (Auto) % Eos % (Auto) % Baso % (Auto) % Neut # (Auto) (1.40-6.50) K/uL Lymph # (Auto) (1.20-3.40) K/uL [place] # (Auto) (0.11-0.59) K/uL Eos # (Auto) (0.00-0.50) K/uL Baso # (Auto) (0.00-0.20) K/uL Immature Gran # (Auto) (0.01-0.20) K/uL PT (9.0-12.0) Seconds INR (0.9-1.1) APTT (21-31) Seconds PTT Ratio VBG pH (7.36-7.41) VBG pCO2 (38-50) mmHg VBG pO2 mmHg VBG HCO3 mmol/L VBG O2 Saturation % VBG Base Excess mEq/L POC Sodium (135-144) mmol/L Sodium (136-145) mmol/L POC Potassium (3.3-5.0) mmol/L Potassium POC Chloride (101-112) mmol/L Chloride (98-107) mmol/L Carbon Dioxide (21-32) mmol/L POC Total CO2 (24-31) mmol/L Anion Gap (3-11) POC Anion Gap (16-25) mmol/L POC BUN (7-18) mg/dl BUN (6-23) mg/dl Creatinine (0.6-1.4) mg/dl POC Creatinine (0.6-1.3) mg/dl Est Cr Clr Drug Dosing ml/min Est GFR ( Amer) ml/min Est GFR (Non-Af Amer) ml/min BUN/Creatinine Ratio (10-20) Glucose (70-99(Fasting)) mg/dl POC Glucose (other) (70-99) mg/dl Lactate (0.4-2.0) mmol/L Calcium (8.6-10.3) mg/dl POC Ioniz Calcium Won (1.12-1.32) mmol/l Magnesium (1.7-2.4) mg/dl Total Bilirubin (0.2-1.0) mg/dl Direct Bilirubin AST ALT (7-52) U/L Alkaline Phosphatase (34-104) U/L Troponin I High Sens (0-20) pg/ml Total Protein (6.0-8.3) gm/dl Albumin (3.4-5.0) gm/dl Lipase (11-82) U/L Procalcitonin (0-0.5) ng/ml Adenovirus (PCR) Not Detected (NotDetected) B. pertussis DNA (PCR) Not Detected (NotDetected) B.parapertussis DNA PCR Not Detected (NotDetected) C. pneumoniae DNA (PCR) Not Detected (NotDetected) Coronavirus OC43 (PCR) Not Detected (NotDetected) Coronavirus HKU1 (PCR) Not Detected (NotDetected) Coronavirus 229E (PCR) Not Detected (NotDetected) SARS-CoV-2 (PCR) Not Detected (NotDetected) Coronavirus NL63 (PCR) Not Detected (NotDetected) Human Metapneumovir PCR Not Detected (NotDetected) Influenza Type A (PCR) Not Detected (NotDetected) Influenza Type B (PCR) Not Detected (NotDetected) M. pneumoniae (PCR) Not Detected (NotDetected) Parainfluenza 1 (PCR) Not Detected (NotDetected) Parainfluenza 2 (PCR) Not Detected (NotDetected) Parainfluenza 3 (PCR) Not Detected (NotDetected) Parainfluenza 4 (PCR) Not Detected (NotDetected) RSV (PCR) Not Detected (NotDetected) Entero/Rhino (PCR) Not Detected (NotDetected) Blood Type Antibody Screen Administered Medications Norepinephrine Bitartrate (Levophed/D5w) 4 mg in 250 mls @ 22.68 mls/hr IV .Q11H2M JUAN A; Protocol Stop: 04/01/24 22:59 Last Titration: 03/03/24 01:30 Dose: 0.03 mcg/kg/min, 9.7 mls/hr Documented By: Titration: 03/03/24 01:00 Dose: 0.05 mcg/kg/min, 16.2 mls/hr Documented By: Titration: 03/02/24 23:50 Dose: 0.07 mcg/kg/min, 22.7 mls/hr Documented By: Admin: 03/02/24 22:56 Dose: 0.05 mcg/kg/min, 16.2 mls/hr Documented By: MIRYAM Co-signed By: GATITO Linezolid (Zyvox) 600 mg in 300 mls @ 300 mls/hr IV Q12H [facility] Stop: 03/04/24 23:44 Last Infusion: 03/03/24 01:31 Dose: Infused Documented By: Admin: 03/03/24 00:18 Dose: 300 mls/hr Documented By: MIRYAM Discontinued Medications Sodium Chloride (Nss) 1,000 mls @ 999 mls/hr IV .Q1H1M ONE Stop: 03/02/24 22:55 Last Infusion: 03/02/24 22:50 Dose: Infused Documented By: Admin: 03/02/24 22:12 Dose: 999 mls/hr Documented By: MIRYAM Acetaminophen (Ofirmev) 1,000 mg in 100 mls @ 400 mls/hr IV NOW STA Stop: 03/02/24 22:10 Last Infusion: 03/02/24 22:50 Dose: Infused Documented By: Admin: 03/02/24 22:11 Dose: 400 mls/hr Documented By: MIRYAM Vancomycin HCl 1,750 mg/ (Sodium Chloride) 535 mls @ 200 mls/hr IV NOW ONE Stop: 03/03/24 01:00 Last Infusion: 03/02/24 23:29 Dose: 0 mls/hr Documented By: Admin: 03/02/24 22:44 Dose: 200 mls/hr Documented By: MIRYAM Cefepime HCl (Maxipime) 2,000 mg in 20 mls @ 5 mls/min IV NOW STA; Protocol Stop: 03/02/24 22:25 Last Admin: 03/02/24 22:45 Dose: 5 mls/min Documented By: MIRYAM Sodium Chloride (Nss) 500 mls @ 999 mls/hr IV .Q31M ONE Stop: 03/02/24 23:17 Last Infusion: 03/02/24 23:29 Dose: Infused Documented By: Admin: 03/02/24 22:52 Dose: 999 mls/hr Documented By: MIRYAM Ioversol (Optiray 320 125ml) 118 ml IV ONCE ONE Stop: 03/02/24 22:30 Last Admin: 03/02/24 22:29 Dose: 118 ml Documented By: MADELAINE Ondansetron HCl (Ondansetron Inj 2 Mg/Ml 2 Ml Vial) 4 mg IV NOW STA Stop: 03/02/24 21:56 Last Admin: 03/02/24 22:11 Dose: 4 mg Documented By: MIRYAM Imaging Data Radiologist's Impression: Abdomen/Pelvis CT 03/02/24 21:58 Exam(s): CT ABDOMEN + PELVIS With Contrast IV Amt: OPTIRAY 320 118ML EXAM: CT Abdomen and Pelvis With Intravenous Contrast CLINICAL HISTORY: Reason for exam: abd pain, n/v, sob. TECHNIQUE: Axial computed tomography images of the abdomen and pelvis with intravenous contrast. CTDI is 26 mGy and DLP is 1409 mGy-cm. Automated exposure control was utilized for the study. A dose lowering technique was utilized adhering to the principles of ALARA. CONTRAST: Patient received OPTIRAY 320 118ML of IV contrast COMPARISON: No relevant prior studies available. FINDINGS: Lung bases: Mild fibrotic changes at the lung bases. No consolidation. ABDOMEN: Liver: Unremarkable. No mass. Gallbladder and bile ducts: Adherent gallstones versus 6 mm gallbladder polyps at the fundus. No cholecystitis or biliary dilatation. Pancreas: Unremarkable. No mass. No ductal dilation. Spleen: Unremarkable. No splenomegaly. Adrenals: Unremarkable. No mass. Kidneys and ureters: Symmetric renal enhancement. No hydronephrosis. Simple right kidney mid pole cyst measuring 9 mm; no further follow-up required. Stomach and bowel: Colonic diverticulosis, severe at the level of the sigmoid colon. No evidence of diverticulitis. No bowel obstruction. No mucosal thickening. PELVIS: Appendix: Normal appendix. Bladder: Small bilateral bladder diverticula. No bladder wall thickening or bladder stone. Reproductive: Prostate calcifications. Prostate is normal in size. ABDOMEN and PELVIS: Intraperitoneal space: Mild mesenteric edema. No free fluid or free air. Bones/joints: Severe disc degeneration in the lumbar spine. Advanced multilevel facet degeneration. Mild joint space narrowing in both hips. No acute fracture or dislocation. Soft tissues: Unremarkable. Vasculature: Atherosclerosis. No aortic aneurysm. Lymph nodes: Unremarkable. No enlarged lymph nodes. IMPRESSION: No acute findings in the abdomen or pelvis. Electronically signed by: Ana Laura Chang M.D. 03/02/24 22:50 PM Chest CTA 03/02/24 21:58 Exam(s): CTA CHEST IV Amt: OPTIRAY 320 118ML EXAM: CT Angiography Chest With Intravenous Contrast CLINICAL HISTORY: Reason for exam: PE, abd pain, n/v, sob. TECHNIQUE: Axial computed tomographic angiography images of the chest with intravenous contrast. CTDI is 28 mGy and DLP is 732 mGy-cm. Automated exposure control was utilized for the study. A dose lowering technique was utilized adhering to the principles of ALARA. MIP reconstructed images were created and reviewed. COMPARISON: No relevant prior studies available. FINDINGS: Pulmonary arteries: Adequate pulmonary artery opacification. Enlarged central pulmonary artery suggesting pulmonary arterial hypertension. No pulmonary embolism. Aorta: No aortic aneurysm or dissection. Thoracic aortic atherosclerosis. Lungs: Coarse reticulations within the lung periphery, greatest at the right lung apex, compatible with nonspecific fibrosis. No consolidation or mass. Pleural space: Unremarkable. No significant effusion. No pneumothorax. Heart: Aortic valvular and mitral annular calcifications. Coronary artery atherosclerosis. No cardiomegaly. Thickened left ventricular wall suggesting left ventricular hypertrophy. No pericardial effusion. No evidence of RV dysfunction. Bones/joints: Reverse right shoulder arthroplasty. No acute fracture. No dislocation. Subacute to chronic sternal body fracture. Soft tissues: Unremarkable. Lymph nodes: Unremarkable. No lymphadenopathy. Upper abdomen: Reported separately. IMPRESSION: No evidence of acute pulmonary embolism. Electronically signed by: Ana Laura Chang M.D. 03/02/24 23:01 PM Discharge Plan Visit Data Chief Complaint: Vomiting Stated Complaint: N/V, Hypotension ED Provider: Cyril Dodson Discharge Problem: Abdominal pain, CKD (chronic kidney disease), Interstitial lung disease, Elevated troponin, Acute hypotension, Nausea & vomiting Patient Disposition: Admitted As Inpatient Discharge Instructions Interventions: ED Discharge Assessment Last Done: 03/03/24 01:05 Discharge Problem: Abdominal pain Qualifiers: Abdominal location: lower abdomen, unspecified Qualified Code(s): R10.30 - Lower abdominal pain, unspecified CKD (chronic kidney disease) Qualifiers: Chronic kidney disease stage: unspecified stage Qualified Code(s): N18.9 - Chronic kidney disease, unspecified Nausea & vomiting Qualifiers: Vomiting type: unspecified Qualified Code(s): R11.2 - Nausea with vomiting, unspecified
[2024-03-02 22:13] LABS: Alanine Aminotransferase 14 U/L (7-52); Albumin Level 3.6 gm/dl (3.4-5.0); Alkaline Phosphatase 64 U/L (34-104); Anion Gap 10 (3-11); BUN Creatinine Ratio 14.9 (10-20); Bilirubin,Total 0.5 mg/dl (0.2-1.0); Blood Urea Nitrogen 25 mg/dl (6-23); Calcium 8.9 mg/dl (8.6-10.3); Carbon Dioxide 26 mmol/L (21-32); Chloride 96 mmol/L (98-107); Creatinine Clr Calc Pharmacy 34.4 ml/min; Est GFR (Non-African American) 36.2 ml/min; Glucose 106 mg/dl (70-99(Fasting)); Magnesium 1.7 mg/dl (1.7-2.4); Sodium 132 mmol/L (136-145); Total Protein 6.4 gm/dl (6.0-8.3)
[2024-03-02 22:14] LABS: iSTAT Creatinine 1.9 mg/dl (0.6-1.3); iSTAT Hemoglobin 12.2 g/dl (14.0-18.0); iSTAT Ionized Calcium 1.09 mmol/l (1.12-1.32); iSTAT Potassium 4.4 mmol/L (3.3-5.0)
[2024-03-02] MEDS ORDERED: VANCOMYCIN CONSULT ACTIVE PRN (22:20)
[2024-03-02 22:21] LABS: Lipase 7 U/L (11-82)
[2024-03-02 22:23] LABS: Troponin I High Sensitivity 65.3 pg/ml (0-20)
[2024-03-02 22:26] LABS: Partial Thromboplastin Time 27 Seconds (21-31); Prothrombin Time 11.2 Seconds (9.0-12.0)
[2024-03-02] MEDS: OPTIRAY 320 125ml IV ONE (22:29)
[2024-03-02] MEDS: VANCOMYCIN HCL 1,750 MG in SODIUM CHLORIDE 0.9% 500 ML IV ONE (22:44)
[2024-03-02] MEDS: CEFEPIME 2,000 MG/20 ML VIAL IV STA (22:45)
--- NOTE | 2024-03-02 22:51 | CT Scan Report ---
Exam(s): CT ABDOMEN + PELVIS With Contrast IV Amt: OPTIRAY 320 118ML EXAM: CT Abdomen and Pelvis With Intravenous Contrast CLINICAL HISTORY: Reason for exam: abd pain, n/v, sob. TECHNIQUE: Axial computed tomography images of the abdomen and pelvis with intravenous contrast. CTDI is 26 mGy and DLP is 1409 mGy-cm. Automated exposure control was utilized for the study. A dose lowering technique was utilized adhering to the principles of ALARA. CONTRAST: Patient received OPTIRAY 320 118ML of IV contrast COMPARISON: No relevant prior studies available. FINDINGS: Lung bases: Mild fibrotic changes at the lung bases. No consolidation. ABDOMEN: Liver: Unremarkable. No mass. Gallbladder and bile ducts: Adherent gallstones versus 6 mm gallbladder polyps at the fundus. No cholecystitis or biliary dilatation. Pancreas: Unremarkable. No mass. No ductal dilation. Spleen: Unremarkable. No splenomegaly. Adrenals: Unremarkable. No mass. Kidneys and ureters: Symmetric renal enhancement. No hydronephrosis. Simple right kidney mid pole cyst measuring 9 mm; no further follow-up required. Stomach and bowel: Colonic diverticulosis, severe at the level of the sigmoid colon. No evidence of diverticulitis. No bowel obstruction. No mucosal thickening. PELVIS: Appendix: Normal appendix. Bladder: Small bilateral bladder diverticula. No bladder wall thickening or bladder stone. Reproductive: Prostate calcifications. Prostate is normal in size. ABDOMEN and PELVIS: Intraperitoneal space: Mild mesenteric edema. No free fluid or free air. Bones/joints: Severe disc degeneration in the lumbar spine. Advanced multilevel facet degeneration. Mild joint space narrowing in both hips. No acute fracture or dislocation. Soft tissues: Unremarkable. Vasculature: Atherosclerosis. No aortic aneurysm. Lymph nodes: Unremarkable. No enlarged lymph nodes. IMPRESSION: No acute findings in the abdomen or pelvis. Electronically signed by: Ana Laura Chang M.D. 03/02/24 22:50 PM
[2024-03-02] MEDS: SODIUM CHLORIDE 0.9% 500 ML IV ONE (22:52)
[2024-03-02] MEDS ORDERED: STAT IV Infusion **Titration per Protocol STA (22:55)
[2024-03-02] MEDS: NOREPINEPHRINE/D5W 4 MG/250 ML PLCT IV SCH (22:56)
--- NOTE | 2024-03-02 23:02 | CT Scan Report ---
Exam(s): CTA CHEST IV Amt: OPTIRAY 320 118ML EXAM: CT Angiography Chest With Intravenous Contrast CLINICAL HISTORY: Reason for exam: PE, abd pain, n/v, sob. TECHNIQUE: Axial computed tomographic angiography images of the chest with intravenous contrast. CTDI is 28 mGy and DLP is 732 mGy-cm. Automated exposure control was utilized for the study. A dose lowering technique was utilized adhering to the principles of ALARA. MIP reconstructed images were created and reviewed. COMPARISON: No relevant prior studies available. FINDINGS: Pulmonary arteries: Adequate pulmonary artery opacification. Enlarged central pulmonary artery suggesting pulmonary arterial hypertension. No pulmonary embolism. Aorta: No aortic aneurysm or dissection. Thoracic aortic atherosclerosis. Lungs: Coarse reticulations within the lung periphery, greatest at the right lung apex, compatible with nonspecific fibrosis. No consolidation or mass. Pleural space: Unremarkable. No significant effusion. No pneumothorax. Heart: Aortic valvular and mitral annular calcifications. Coronary artery atherosclerosis. No cardiomegaly. Thickened left ventricular wall suggesting left ventricular hypertrophy. No pericardial effusion. No evidence of RV dysfunction. Bones/joints: Reverse right shoulder arthroplasty. No acute fracture. No dislocation. Subacute to chronic sternal body fracture. Soft tissues: Unremarkable. Lymph nodes: Unremarkable. No lymphadenopathy. Upper abdomen: Reported separately. IMPRESSION: No evidence of acute pulmonary embolism. Electronically signed by: Ana Laura Chang M.D. 03/02/24 23:01 PM
--- NOTE | 2024-03-02 23:49 | History & Physical Report ---
Date of Service March 02, 2024 Assessment & Plan (1) Septic shock: (2) Nausea & vomiting: (3) Acute hypotension: (4) Elevated troponin: (5) Cardiomyopathy: (6) GERD (gastroesophageal reflux disease): (7) DMII (diabetes mellitus, type 2): (8) Acute kidney injury superimposed on chronic kidney disease: (9) Aortic stenosis: Plan Septic shock- Admitted to intensive care unit Unclear source at this time, likely that of GI such as diverticulitis versus urinary tract infection/prostatitis Follow all cultures and sensitivities Patient is immunocompromised on mycophenolate and prednisone Empiric linezolid 6 mg IV every 12 hours, and cefepime 2 g IV every 12 hours Status post 1500 mL normal saline Continue IV fluid rehydration with Plasma-Lyte at 80 mL/h Continue Levophed infusion begun in the ED with usual parameters Consult urban planning teacher Elevated troponin/aortic stenosis/cardiomyopathy/PVCs/hypertension history- Hypotensive in the emergency department, to a blood pressure of 59/48 Initial troponin 65.3, and will be followed serially Continue Levophed infusion Follow serial laboratories Hold metoprolol succinate Acute kidney injury superimposed on CKD- Creatinine 1.68, with baseline 1.27 Follow serial laboratories and wants to improve with IV fluid resuscitation and improving perfusion with increasing blood pressure BPH with LUTS- Urinary retention of 3 to 6 mL noted in the ED Patient preferring to not have Maier catheter Maier urinalysis and urine culture sensitivity when patient can provide a sample Continue tamsulosin and finasteride History of Present Illness Chief Complaint: The patient presents to the emergency department with his , with complaint of waking up at 7 AM this morning with generalized abdominal pain, nausea and vomiting without diarrhea. He reports no changes in his physical activity eating or drinking patterns over the past several days. He denies any recent travels or sick exposures. Primary Care Provider: Sallie Mckeon MD The patient is a 84-year-old male with a past medical history including cardiomyopathy, anxiety, GERD, hypothyroidism, CKD, diabetes mellitus type 2, hyperlipidemia, interstitial lung disease, pulm hypertension, Schatzki's ring, hypertension, aortic valve sclerosis, occipital and cervical neuralgia. Patient presented to the emergency department with symptoms as noted above. He was noted to be hypotensive, with lowest recorded blood pressure 59/48, and was given normal saline total 1500 mill bolus, cefepime 2 g IV, linezolid 600 mg IV, and started on Levophed continuous infusion. Patient was admitted to the ICU for ongoing treatment Allergies Allergy/AdvReac Type Severity Reaction Status Date / Time Sulfa (Sulfonamide Allergy Severe RASH, Verified 03/03/24 00:11 Antibiotics) HIVES, SWOLLEN MOUTH, THROAT SWELLING lisinopril Allergy Intermediate lethargic Verified 03/03/24 00:11 Penicillins Allergy Intermediate RASH, HIVES Verified 03/03/24 00:11 Home Medications Medication Instructions Recorded Confirmed Type tamsulosin 0.4 mg capsule 0.4 mg PO DAILY #90 caps 04/06/23 03/03/24 Rx omeprazole 40 mg capsule,delayed 40 mg PO QAM 05/30/23 03/03/24 History release levothyroxine 50 mcg tablet 50 mcg PO DAILY #90 tabs 09/20/23 03/03/24 Rx fluticasone propionate 50 1 spray intranasal BID #18.2 mL 10/23/23 03/03/24 Rx mcg/actuation nasal spray,suspension (Flonase Allergy Relief) allopurinol 100 mg tablet 100 mg PO QAM 10/31/23 03/03/24 History escitalopram oxalate 10 mg tablet 10 mg PO QAM 10/31/23 03/03/24 History blood-glucose sensor (FreeStyle #2 ea 11/08/23 03/03/24 Rx Vanessa 3 Sensor device) famotidine 40 mg tablet (Pepcid) 40 mg PO HS #90 tabs 11/14/23 03/03/24 Rx pen needle, diabetic 32 gauge x #100 ea 11/27/23 03/03/24 Rx 5/32" (BD Ultra-Fine Vale Pen Needle) metoprolol succinate 25 mg 25 mg PO QPM #90 tabs 12/11/23 03/03/24 Rx tablet,extended release 24 hr aspirin 81 mg tablet,delayed 81 mg PO DAILY 12/13/23 03/03/24 History release (Adult Aspirin Regimen) finasteride 5 mg tablet (Proscar) 5 mg PO QPM #90 tabs 01/09/24 03/03/24 Rx gabapentin 300 mg capsule 300 mg PO TID #90 caps 01/09/24 03/03/24 Rx prednisone 10 mg tablet 10 mg PO DAILY #30 tabs 01/09/24 03/03/24 Rx insulin degludec 100 unit/mL (3 28 unit subcut QAM 01/16/24 03/03/24 History mL) subcutaneous pen (Tresiba FlexTouch U-100 insulin) insulin lispro 100 unit/mL 6 unit (0.06 mL) subcut QPM #10 mL 01/22/24 03/03/24 Rx subcutaneous pen (Humalog KwikPen (U-100) Insulin) tirzepatide 5 mg/0.5 mL 5 mg (0.5 mL) subcut WK #2 mL 02/04/24 03/03/24 Rx subcutaneous pen injector alprazolam 0.5 mg tablet (Xanax) 0.25 mg (1/2 x 0.5 mg) PO HS #15 02/06/24 03/03/24 Rx tabs midodrine 5 mg tablet 5 mg PO TID #270 tabs 02/06/24 03/03/24 Rx mycophenolate mofetil 250 mg 250 mg PO BID #120 caps 02/08/24 03/03/24 Rx capsule (CellCept) Past Med/Surg History Medical History (Updated 03/03/24 @ 05:33 by David Yo MD) Orthostatic hypotension Cardiomyopathy LV systolic function has normalized. Etiology of CM unknown. Hypothyroidism Anxiety GERD (gastroesophageal reflux disease) Relatively controlled with medication (improved from previous) Recurrent falls History of osteomyelitis left foot Periprosthetic fracture around internal prosthetic joint Cervical spondylosis Migraine Hx of melanoma of skin RT EAR Low iron Anemia stable per patient Hx of esophageal ulcer Hx of gout Controlled with Allopurinol Hyponatremia Chronic kidney disease, stage III (moderate) BPH (benign prostatic hyperplasia) DMII (diabetes mellitus, type 2) Aortic stenosis Mild AV stenosis on 10/15/20 ECHO "AV opens well" on 05/11/21 ECHO -Per 08/2021 cardio note- noted in 2019 - no significant stenosis on most recent ECHO- known sclerotic AV- "no significant stenosis" Venous insufficiency Interstitial lung disease "HAS NOT USED INHALER FOR A LONG TIME" Breathing stable at rest- mild FONTANEZ with long walks (chronic and unchanged) Accelerated idioventricular rhythm Asymptomatic. Beta-juanjose has been initiated since Holter monitor per cardio records Frequent PVCs FOLLOWED BY DR. 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 - 08/06/19 [facility] [place] of colonoscopy History of esophagogastroduodenoscopy (EGD) with dilation History of wisdom tooth extraction History of tonsillectomy and adenoidectomy History of cardiac cath no stents>YEARS AGO AT [facility] S/P dilatation of esophageal stricture H/O foot surgery RT FOOT History of bilateral knee replacement Family History Father Family history of diabetes mellitus Coronary heart disease Prostate cancer Myocardial infarction Uncle Coronary heart disease Sister Breast cancer Other No family history of adverse response to anesthesia Denies family history of Ovarian cancer Colorectal cancer Social History Smoking Status: Never smoker Second Hand Exposure: No; Do You Dip or Chew Tobacco: No; Hx Alcohol Use: No Hx Substance Use: No Preferred Language: Omani Communication Ability: Effective Visual Impairment: Limited Hearing Ability: Use of Hearing Aid Birth Attendant Required: No Beliefs That Will Affect Care: None marital status: / Current Living Situation: Alone current occupational status: retired How many Children do You have: 3 Feels Safe at Home: Yes Safety Concerns: Feels Safe At This Time Childhood Exposure to Second-Hand Smoke: Yes Diet: low carbohydrate and regular caffeine: Yes during the past year weight has: increased > 10 lbs Dental Care, Regularly: Yes Physical Activity Frequency: 1-2 Times per Week Seatbelt Use: always Sunscreen Use: Yes Assistive Devices: Walker Review of Systems Review of Systems: The patient denies chest pain, palpitations, shortness of breath, dyspnea on exertion, cough, lower extremity swelling, sore throat, fevers, chills, sweats, nausea, vomiting, diarrhea , constipation, blood in urine or stool, dysuria, urinary frequency or urgency, lightheadedness, dizziness, headache, memory loss, loss of consciousness, rash, abnormal bruising or bleeding, focal weakness, numbness or tingling in arms or legs, generalized arthralgias or myalgias, back or neck pain, or night sweats. The review of systems is otherwise negative other than for that already noted above, and at least 10 systems have been reviewed. Physical Exam Physical Exam: The patient is awake, alert and oriented 3, well developed and well nourished, normocephalic and atraumatic, lying in bed and in no acute distress. HEENT--PERRL, EOMI, mucous membranes and oropharynx dry. Neck--supple. No JVD. No bruits. Thyroid normal, trachea midline, no adenopathy. Heart--normal S1 and S2. No murmurs, rubs or gallops. Lungs--clear bilaterally, no respiratory distress, no accessory muscle use. Abdomen--normal bowel sounds and soft. Tender left lower quadrant. Nondistended, no hernias or masses, no organomegaly. Extremities--no cyanosis or clubbing. No edema. Dermatologic--normal skin turgor, normal color, no abnormal lymph nodes, no rash. Neurologic--cranial nerves II through XII grossly intact. Rheumatologic--normal range of motion. Psychiatric--normal affect. Results & Data Results & Data Vital Signs (Past 12 Hours) Vital Signs Temp Pulse Resp BP Pulse Ox O2 Del Method O2 Flow Rate 03/02/24 23:32 93 H 19 83/52 L 96 Nasal Cannula 3 03/02/24 23:32 93 H 19 96 03/02/24 23:30 94 H 17 97 03/02/24 23:15 96 H 20 93/60 L 97 03/02/24 23:15 96 H 20 97 03/02/24 23:12 102 H 18 97 03/02/24 23:12 102 H 18 96/70 L 97 03/02/24 23:10 93 H 20 97 03/02/24 23:04 95 H 20 98 03/02/24 23:04 95 H 20 95/68 L 98 03/02/24 23:00 18 117/68 99 03/02/24 23:00 18 99 03/02/24 22:59 94 H 20 96 03/02/24 22:59 77/56 L 03/02/24 22:59 77/56 L 03/02/24 22:54 21 63/50 L 95 03/02/24 22:54 21 95 03/02/24 22:51 73/54 L 03/02/24 22:51 91 H 18 73/54 L 97 03/02/24 22:51 91 H 18 97 03/02/24 22:50 91 H 18 99 03/02/24 22:47 96 H 22 72/56 L 99 03/02/24 22:47 96 H 22 99 03/02/24 22:46 92 H 25 H 76/50 L 98 Nasal Cannula 3 03/02/24 22:46 92 H 25 H 98 03/02/24 22:45 92 H 27 H 67/51 L 97 Nasal Cannula 3 03/02/24 22:45 92 H 27 H 97 03/02/24 22:41 109 H 20 03/02/24 22:41 109 H 20 82/56 L 03/02/24 22:40 93 H 25 H 03/02/24 22:20 87 18 95 03/02/24 22:15 96 H 19 94/65 L 98 Nasal Cannula 3 03/02/24 22:15 96 H 19 98 03/02/24 22:10 91 H 21 95 03/02/24 22:00 112 H 19 86/53 L 03/02/24 22:00 112 H 19 03/02/24 21:52 99 H 22 82/50 L 96 Nasal Cannula 3 03/02/24 21:52 99 H 22 03/02/24 21:50 102 H 22 96 03/02/24 21:49 99 H 16 75/59 L 96 Nasal Cannula 3 03/02/24 21:49 99 H 16 96 03/02/24 21:48 98 H 21 61/48 L 96 03/02/24 21:48 98 H 21 96 03/02/24 21:47 101 H 16 59/48 L 96 03/02/24 21:47 101 H 16 96 03/02/24 21:47 96 Nasal Cannula 3 03/02/24 21:47 98 H 03/02/24 21:40 101 H 15 96 03/02/24 21:40 36.7 C 106 H 18 135/87 96 Nasal Cannula 3 03/02/24 21:32 95 H 23 95 Laboratory Results Laboratory Results WBC 21.93 K/ul (4.8-10.8) H 03/03/24 04:46 RBC 3.69 M/uL (4.70-6.10) L 03/03/24 04:46 Hgb 11.2 g/dl (14.0-18.0) L 03/03/24 04:46 POC Hgb 12.2 g/dl (14.0-18.0) L 03/02/24 22:01 Hct 33.7 % (42.0-52.0) L 03/03/24 04:46 POC Hct 36 % (42-52) L 03/02/24 22:01 MCV 91.3 fL (80.0-100.0) 03/03/24 04:46 MCH 30.4 pg (25.0-34.0) 03/03/24 04:46 MCHC 33.2 g/dL (32.0-36.0) 03/03/24 04:46 RDW Std Deviation 47.1 fL (36.4-46.3) H 03/03/24 04:46 RDW Coeff of Graham 14.2 % (11.5-14.5) 03/03/24 04:46 Plt Count 298 K/uL (130-400) 03/03/24 04:46 MPV 9.9 fL (9.4-12.4) 03/03/24 04:46 Immature Gran % (Auto) 0.5 % 03/02/24 21:36 Neut % (Auto) 88.2 % 03/02/24 21:36 Lymph % (Auto) 5.0 % 03/02/24 21:36 [place] % (Auto) 5.8 % 03/02/24 21:36 Eos % (Auto) 0.0 % 03/02/24 21:36 Baso % (Auto) 0.5 % 03/02/24 21:36 Neut # (Auto) 17.67 K/uL (1.40-6.50) H 03/02/24 21:36 Lymph # (Auto) 1.01 K/uL (1.20-3.40) L 03/02/24 21:36 [place] # (Auto) 1.16 K/uL (0.11-0.59) H 03/02/24 21:36 Eos # (Auto) 0.00 K/uL (0.00-0.50) 03/02/24 21:36 Baso # (Auto) 0.10 K/uL (0.00-0.20) 03/02/24 21:36 Immature Gran # (Auto) 0.11 K/uL (0.01-0.20) 03/02/24 21:36 PT 11.2 Seconds (9.0-12.0) 03/02/24 21:36 INR 1.0 (0.9-1.1) 03/02/24 21:36 APTT 27 Seconds (21-31) 03/02/24 21:36 PTT Ratio 1.0 03/02/24 21:36 VBG pH 7.49 (7.36-7.41) H 03/02/24 21:48 VBG pCO2 32 mmHg (38-50) L 03/02/24 21:48 VBG pO2 51 mmHg 03/02/24 21:48 VBG HCO3 24 mmol/L 03/02/24 21:48 VBG O2 Saturation 84.6 % 03/02/24 21:48 VBG Base Excess 1.7 mEq/L 03/02/24 21:48 POC Sodium 131 mmol/L (135-144) L 03/02/24 22:01 Sodium 132 mmol/L (136-145) L 03/02/24 21:36 POC Potassium 4.4 mmol/L (3.3-5.0) 03/02/24 22:01 Potassium 4.0 mmol/L (3.5-5.1) 03/02/24 22:56 POC Chloride 97 mmol/L (101-112) L 03/02/24 22:01 Chloride 96 mmol/L (98-107) L 03/02/24 21:36 Carbon Dioxide 26 mmol/L (21-32) 03/02/24 21:36 POC Total CO2 25 mmol/L (24-31) 03/02/24 22:01 Anion Gap 10 (3-11) 03/02/24 21:36 POC Anion Gap 15.0 mmol/L (16-25) L 03/02/24 22:01 POC BUN 24 mg/dl (7-18) H 03/02/24 22:01 BUN 25 mg/dl (6-23) H 03/02/24 21:36 Creatinine 1.68 mg/dl (0.6-1.4) H 03/02/24 21:36 POC Creatinine 1.9 mg/dl (0.6-1.3) H 03/02/24 22:01 Est Cr Clr Drug Dosing 34.4 ml/min 03/02/24 21:36 Est GFR ( Amer) 42.0 ml/min 03/02/24 21:36 Est GFR (Non-Af Amer) 36.2 ml/min 03/02/24 21:36 BUN/Creatinine Ratio 14.9 (10-20) 03/02/24 21:36 Glucose 106 mg/dl (70-99(Fasting)) H 03/02/24 21:36 POC Glucose (other) 100 mg/dl (70-99) H 03/02/24 22:01 Lactate 1.8 mmol/L (0.4-2.0) 03/02/24 21:53 Calcium 8.9 mg/dl (8.6-10.3) 03/02/24 21:36 POC Ioniz Calcium Won 1.09 mmol/l (1.12-1.32) L 03/02/24 22:01 Phosphorus 2.8 mg/dl (2.5-4.9) 03/03/24 00:31 Magnesium 1.7 mg/dl (1.7-2.4) 03/02/24 21:36 Total Bilirubin 0.5 mg/dl (0.2-1.0) 03/02/24 21:36 Direct Bilirubin 0.1 mg/dl (0-0.2) 03/02/24 22:56 AST 14 U/L (13-39) 03/02/24 22:56 ALT 14 U/L (7-52) 03/02/24 21:36 Alkaline Phosphatase 64 U/L (34-104) 03/02/24 21:36 Troponin I High Sens 84.5 pg/ml (0-20) H* D 03/03/24 00:31 B-Natriuretic Peptide 139 pg/ml (0-100) H 03/03/24 02:53 Total Protein 6.4 gm/dl (6.0-8.3) 03/02/24 21:36 Albumin 3.6 gm/dl (3.4-5.0) 03/02/24 21:36 Lipase 7 U/L (11-82) L 03/02/24 21:36 Procalcitonin 1.68 ng/ml (0-0.5) H 03/02/24 21:36 Random Cortisol 15.05 mcg/dl 03/02/24 22:56 Urine Color Yellow 03/03/24 01:20 Urine Appearance Clear (Clear) 03/03/24 01:20 Urine pH 6.5 (4.5-7.5) 03/03/24 01:20 Ur Specific [place] > 1.045 (1.000-1.030) H 03/03/24 01:20 Urine Protein Trace (Negative) H 03/03/24 01:20 Urine Glucose (UA) Negative (Negative) 03/03/24 01:20 Urine Ketones 1+ (Negative) H 03/03/24 01:20 Urine Blood Negative (Negative) 03/03/24 01:20 Urine Nitrite Negative (Negative) 03/03/24 01:20 Urine Bilirubin Negative (Negative) 03/03/24 01:20 Urine Urobilinogen Negative (Negative) 03/03/24 01:20 Ur Leukocyte Esterase 1+ (Negative) H 03/03/24 01:20 Urine WBC (Auto) 11-20 /hpf (0-5) H 03/03/24 01:20 Urine RBC (Auto) 0-2 /hpf (0-2) 03/03/24 01:20 U Hyaline Cast (Auto) 6-10 /lpf (0-2) H 03/03/24 01:20 U Epithel Cells (Auto) 3-5 /hpf (0-2) H 03/03/24 01:20 Urine Bacteria (Auto) None Seen (None Seen) 03/03/24 01:20 Hyaline Casts Present /lpf (None Presnt) A 03/03/24 01:20 Nasal Screen MRSA (PCR) Positive (Negative) A 03/03/24 01:00 Adenovirus (PCR) Not Detected (NotDetected) 03/02/24 23:14 B. pertussis DNA (PCR) Not Detected (NotDetected) 03/02/24 23:14 B.parapertussis DNA PCR Not Detected (NotDetected) 03/02/24 23:14 C. pneumoniae DNA (PCR) Not Detected (NotDetected) 03/02/24 23:14 Coronavirus OC43 (PCR) Not Detected (NotDetected) 03/02/24 23:14 Coronavirus HKU1 (PCR) Not Detected (NotDetected) 03/02/24 23:14 Coronavirus 229E (PCR) Not Detected (NotDetected) 03/02/24 23:14 SARS-CoV-2 (PCR) Not Detected (NotDetected) 03/02/24 23:14 Coronavirus NL63 (PCR) Not Detected (NotDetected) 03/02/24 23:14 Human Metapneumovir PCR Not Detected (NotDetected) 03/02/24 23:14 Influenza Type A (PCR) Not Detected (NotDetected) 03/02/24 23:14 Influenza Type B (PCR) Not Detected (NotDetected) 03/02/24 23:14 M. pneumoniae (PCR) Not Detected (NotDetected) 03/02/24 23:14 Parainfluenza 1 (PCR) Not Detected (NotDetected) 03/02/24 23:14 Parainfluenza 2 (PCR) Not Detected (NotDetected) 03/02/24 23:14 Parainfluenza 3 (PCR) Not Detected (NotDetected) 03/02/24 23:14 Parainfluenza 4 (PCR) Not Detected (NotDetected) 03/02/24 23:14 RSV (PCR) Not Detected (NotDetected) 03/02/24 23:14 Entero/Rhino (PCR) Not Detected (NotDetected) 03/02/24 23:14 Blood Type O Positive 03/02/24 21:57 Antibody Screen NEGATIVE 03/02/24 21:57 Impressions Abdomen/Pelvis CT 03/02/24 21:58 Exam(s): CT ABDOMEN + PELVIS With Contrast IV Amt: OPTIRAY 320 118ML EXAM: CT Abdomen and Pelvis With Intravenous Contrast CLINICAL HISTORY: Reason for exam: abd pain, n/v, sob. TECHNIQUE: Axial computed tomography images of the abdomen and pelvis with intravenous contrast. CTDI is 26 mGy and DLP is 1409 mGy-cm. Automated exposure control was utilized for the study. A dose lowering technique was utilized adhering to the principles of ALARA. CONTRAST: Patient received OPTIRAY 320 118ML of IV contrast COMPARISON: No relevant prior studies available. FINDINGS: Lung bases: Mild fibrotic changes at the lung bases. No consolidation. ABDOMEN: Liver: Unremarkable. No mass. Gallbladder and bile ducts: Adherent gallstones versus 6 mm gallbladder polyps at the fundus. No cholecystitis or biliary dilatation. Pancreas: Unremarkable. No mass. No ductal dilation. Spleen: Unremarkable. No splenomegaly. Adrenals: Unremarkable. No mass. Kidneys and ureters: Symmetric renal enhancement. No hydronephrosis. Simple right kidney mid pole cyst measuring 9 mm; no further follow-up required. Stomach and bowel: Colonic diverticulosis, severe at the level of the sigmoid colon. No evidence of diverticulitis. No bowel obstruction. No mucosal thickening. PELVIS: Appendix: Normal appendix. Bladder: Small bilateral bladder diverticula. No bladder wall thickening or bladder stone. Reproductive: Prostate calcifications. Prostate is normal in size. ABDOMEN and PELVIS: Intraperitoneal space: Mild mesenteric edema. No free fluid or free air. Bones/joints: Severe disc degeneration in the lumbar spine. Advanced multilevel facet degeneration. Mild joint space narrowing in both hips. No acute fracture or dislocation. Soft tissues: Unremarkable. Vasculature: Atherosclerosis. No aortic aneurysm. Lymph nodes: Unremarkable. No enlarged lymph nodes. IMPRESSION: No acute findings in the abdomen or pelvis. Electronically signed by: Ana Laura Chang M.D. 03/02/24 22:50 PM Chest CTA 03/02/24 21:58 Exam(s): CTA CHEST IV Amt: OPTIRAY 320 118ML EXAM: CT Angiography Chest With Intravenous Contrast CLINICAL HISTORY: Reason for exam: PE, abd pain, n/v, sob. TECHNIQUE: Axial computed tomographic angiography images of the chest with intravenous contrast. CTDI is 28 mGy and DLP is 732 mGy-cm. Automated exposure control was utilized for the study. A dose lowering technique was utilized adhering to the principles of ALARA. MIP reconstructed images were created and reviewed. COMPARISON: No relevant prior studies available. FINDINGS: Pulmonary arteries: Adequate pulmonary artery opacification. Enlarged central pulmonary artery suggesting pulmonary arterial hypertension. No pulmonary embolism. Aorta: No aortic aneurysm or dissection. Thoracic aortic atherosclerosis. Lungs: Coarse reticulations within the lung periphery, greatest at the right lung apex, compatible with nonspecific fibrosis. No consolidation or mass. Pleural space: Unremarkable. No significant effusion. No pneumothorax. Heart: Aortic valvular and mitral annular calcifications. Coronary artery atherosclerosis. No cardiomegaly. Thickened left ventricular wall suggesting left ventricular hypertrophy. No pericardial effusion. No evidence of RV dysfunction. Bones/joints: Reverse right shoulder arthroplasty. No acute fracture. No dislocation. Subacute to chronic sternal body fracture. Soft tissues: Unremarkable. Lymph nodes: Unremarkable. No lymphadenopathy. Upper abdomen: Reported separately. IMPRESSION: No evidence of acute pulmonary embolism. Electronically signed by: Ana Laura Chang M.D. 03/02/24 23:01 PM Code Status & VTE Plan Code Status DNR/DNI VTE Prophylaxis Plan VTE Prophylaxis will be ordered: Yes PG Care Time/CCT Total # of Minutes Spent Total Time Spent with Patient: Total time spent is greater than 50% in coordination of care (as documented) at patient's floor/unit and/or counseling patient: 45 minutes Coding Level of Care Code 94769 INT INP/OBS CARE 3/75MIN Diagnoses Septic shock A41.9; R65.21 Nausea & vomiting R11.2 Vomiting type: unspecified Acute hypotension I95.9 Elevated troponin R79.89 Cardiomyopathy I42.9 GERD (gastroesophageal reflux disease) K21.9 Type 2 diabetes mellitus with stage 3a chronic kidney disease, with long-term current use of insulin E11.22; N18.31; Z79.4 Diabetes mellitus [facility] insulin use: with 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 Diabetes mellitus complication status: with kidney complications Diabetes mellitus complication detail: with chronic kidney disease Chronic kidney disease stage: stage 3 (moderate) Chronic kidney disease stage 3 subtype: stage 3a (GFR 45-59) Acute kidney injury superimposed on chronic kidney disease N17.9; N18.9 Aortic valve stenosis, etiology of cardiac valve disease unspecified I35.0 Cardiac valve disease etiology: etiology unspecified (2) Nausea & vomiting Vomiting type: unspecified Qualified Code(s): R11.2 - Nausea with vomiting, unspecified (7) DMII (diabetes mellitus, type 2) Diabetes mellitus [facility] insulin use: with [facility] use Diabetes mellitus complication status: with kidney complications Diabetes mellitus complication detail: with chronic kidney disease Chronic kidney disease stage: stage 3 (moderate) Chronic kidney disease stage 3 subtype: stage 3a (GFR 45-59) Qualified Code(s): E11.22 - Type 2 diabetes mellitus with diabetic chronic kidney disease; N18.31 - Chronic kidney disease, stage 3a; 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
[2024-03-03] MEDS: LINEZOLID 600 MG/300 ML BAG IV SCH (00:18)
[2024-03-03 00:31] LABS: Adenovirus PCR Not Detected (NotDetected); Bordetella parapertussis PCR Not Detected (NotDetected); Bordetella pertussis PCR Not Detected (NotDetected); Chlamydia pneumoniae PCR Not Detected (NotDetected); Coronavirus 229E PCR Not Detected (NotDetected); Coronavirus CoV-2 (COVID19)PCR Not Detected (NotDetected); Coronavirus HKU1 PCR Not Detected (NotDetected); Coronavirus NL63 PCR Not Detected (NotDetected); Coronavirus OC43PCR Not Detected (NotDetected); Human Metapneumovirus PCR Not Detected (NotDetected); Influenza A PCR Not Detected (NotDetected); Influenza B PCR Not Detected (NotDetected); Mycoplasma pneumoniae PCR Not Detected (NotDetected); Parainfluenza Virus 1 PCR Not Detected (NotDetected); Parainfluenza Virus 2 PCR Not Detected (NotDetected); Parainfluenza Virus 3 PCR Not Detected (NotDetected); Parainfluenza Virus 4 PCR Not Detected (NotDetected); Respiratory Syncytial VirusPCR Not Detected (NotDetected); Rhinovirus/Enterovirus PCR Not Detected (NotDetected)
[2024-03-03 00:39] LABS: Bilirubin Direct 0.1 mg/dl (0-0.2)
[2024-03-03] MEDS ORDERED: GLUCOSE 10 TAB/TUBE PO PRN ×2 (01:09→03:56)
[2024-03-03] MEDS ORDERED: ALBUT/IPRATROP 3MG/0.5MG NEB 3 ML VIAL INH PRN (01:09)
[2024-03-03] MEDS ORDERED: CARBOHYDRATES FOR HYPOGLYCEMIA PO PRN ×2 (01:09→03:56)
[2024-03-03] MEDS ORDERED: GLUCAGON FOR INJ 1 MG VIAL SQ PRN ×2 (01:09→03:56)
[2024-03-03] MEDS ORDERED: DEXTROSE 50% 50 ML SYRINGE IV PRN ×2 (01:09→03:56)
[2024-03-03] MEDS ORDERED: GLUCOSE 40% GEL 15 GM TUBE PO PRN ×2 (01:09→03:56)
[2024-03-03 01:33] LABS: Troponin I High Sensitivity 84.5 pg/ml (0-20)
--- NOTE | 2024-03-03 02:23 | Critical Care Consultation ---
Date of Consultation March 03, 2024 Assessment & Plan (1) Septic shock: Reason Critically Ill: 84-year-old male who past medical history significant for interstitial lung disease, pulmonary hypertension, CHF, DM type II, CKD, orthostatic hypotension, and immunosuppression presents to the ICU following ab dominal pain, nausea and vomiting, and weakness with septic shock requiring vasopressor support. Neuro - Anxiety/depressioncontinue SSRI Cardiac - Shocklikely multifactoral and expect underlying sepsis may be playing a role. Patient also has orthostatic hypotension, and is on midodrine which he did not take yesterday due to vomiting. He also is immunosuppressed and currently on 10 mg prednisone daily. Random cortisol 15 on lab work and given 50 IV hydrocortisone for stress dose. Will continue with daily prednisone regimen and midodrine in the a.m., if able to take p.o. Currently on low-dose Levophed drip and weaning as tolerated to maintain MAP greater than 65. Received 1.5 L crystalloid bolus in the emergency department, and due to underlying CHF and hypoxia we will hold on further boluses in favor of gentle fluid resuscitation. Last TTE with mild aortic stenosis, normal EF function, evidence of pulmonary hypertension. Will repeat TTE. He does have mildly elevated troponin as well, which I expect would be demand ischemia and EKG without ST elevation and no chest pain on exam. Hold beta-juanjose for now. Will continue to monitor in ICU, continuous EEG. Respiratory - Interstitial lung disease/hypoxiapatient follows with Dr. Mares for management of interstitial lung disease. He is currently maintained oxygen saturation with nasal cannula, and does wear oxygen at night as needed. He reports being able to complete daily task without assistance of oxygen and feels that his respiratory effort is at baseline. CTA negative for PE, and no evidence of pulmonary edema or consolidation. Continue immunosuppression with mycophenolate, and prednisone. No indication for diuresis at this time, but careful with aggressive fluid resuscitation. Nebs as needed. Continuous monitoring on pulse ox and wean oxygen as tolerated. GI - Nausea/vomiting/abdominal painCT abdomen and pelvis without acute findings, did show diverticulosis without diverticulitis. Patient reports 1 day of nausea with vomiting and abdominal pain, which seems to be improving. Abdomen remains mildly distended and tender, but no guarding. Lactic acid within normal limits remain n.p.o. for now except for medication. Antibiotics adjusted to include intra-abdominal coverage considering immunosuppressed. GERDPPI RENAL/LYTES - CKDcreatinine 1.6 with baseline around 1.5. No significant electrolyte abnormalities. Continue with gentle fluid resuscitation. Monitor routine BMPs and replete electrolytes as indicated. - BPHpatient with difficulty voiding, and currently refusing straight cath or Maier catheter. Will monitor closely. Continue tamsulosin and finasteride. Strict I's and O's ENDO - DM type IIcurrently euglycemic. Continue with sliding scale. ICU hypergl ycemic protocol Hypothyroidismcontinue Synthroid HEME - H&H stable, monitor routine CBC ID - Sepsis?Patient with leukocytosis with WBC 20,000, elevated procalcitonin of 1.4. Lactate within normal limits and currently afebrile. Patient is immunosuppressed with mycophenolate and prednisone for interstitial lung disease -No evidence of pulmonary infiltrates on CT, although nasal MRSA is positive. Will continue coverage with vancomycin -Bio fire negative -CT abdomen and pelvis negative for acute intra-abdominal findings, although patient is having vomiting and abdominal distention. Will continue intra- abdominal coverage with cefepime and Flagyl (penicillin allergy) -Blood cultures and urine culture pending LINES/IV ACCESS - Peripheral IVs. Consider CVC and A-line if patient has higher vasopressor burden DVT PROPHYLAXIS - Chani You I have personally spent 58 minutes of critical care time in the direct management of this patient. This is a life/limb threatening event. This includes time spent evaluating patient, direct bedside care, chart review, placing orders, interpretation of diagnostic studies, discussion with consultants, patient, and family members, as well as other required patient management activities. This time is exclusive of all separately billable procedures, and teaching time and separate from and in addition to any other critical care service time. Thank you for allowing us to participate in the care of this patient. Please refer to my attending physician's documentation for any further recommendations. (2) Nausea & vomiting: (3) Cardiomyopathy: (4) DMII (diabetes mellitus, type 2): (5) CKD (chronic kidney disease): (6) Hyperlipidemia: (7) Interstitial lung disease: (8) Accelerated idioventricular rhythm: (9) Pulmonary hypertension: (10) Aortic stenosis: (11) Hypothyroidism: (12) GERD (gastroesophageal reflux disease): (13) Anxiety: (14) Orthostatic hypotension: (15) Elevated troponin: History of Present Illness Attending Physician: David Yo MD History of Present Illness Patient is a 84-year-old male with past medical history significant for interstitial lung disease (wears supplemental O2 at bedtime), hypertension, mild aortic stenosis, CHF, hypothyroidism, CKD, DM type II, GERD, anxiety, orthostatic hypotension, who presented to the emergency department earlier this evening with complaints of weakness, vomiting that started around 7 AM, and abdominal pain. In the emergency department he was found to have distended abdomen with generalized abdominal tenderness, and was mildly hypoxic requiring supplemental oxygen. Patient also became hypotensive, and was given 1.5 L crystalloid bolus. He remained hypotensive and was started on Levophed drip. He underwent CTA chest which is negative for PE, and no evidence of infiltrates. CT abdomen and pelvis revealed diverticulosis without evidence of diverticulitis, otherwise unremarkable. Lab work revealed leukocytosis with WBC 20,000 lactic acid, but elevated procalcitonin of 1.4. On arrival to the ICU the patient is alert and oriented. He appears mildly tachypneic, but states this is usual for him and he is always short of breath due to his underlying interstitial lung disease. He reports a mild headache, b ut denies dizziness or syncopal events. He does report feeling weak throughout the day to the point that he could not get out of bed. He is currently having generalized abdominal pain which is tender to palpation all over. He reports that he was unable to take his medications including his midodrine and prednisone earlier today. He reports nausea and vomiting from 7 AM until he arrived to the emergency department. Prior to today he was in his usual state of health. He denies any fevers, recent illness, cough, congestion, chest pain, palpitations, constipation, blood in emesis or stool, swelling in feet, or changes in gait. Patient does state that he is able to go to stores with use of cane and does not need oxygen. Allergies Allergy/AdvReac Type Severity Reaction Status Date / Time Sulfa (Sulfonamide Allergy Severe RASH, Verified 03/03/24 00:11 Antibiotics) HIVES, SWOLLEN MOUTH, THROAT SWELLING lisinopril Allergy Intermediate lethargic Verified 03/03/24 00:11 Penicillins Allergy Intermediate RASH, HIVES Verified 03/03/24 00:11 Home Medications Medication Instructions Recorded Confirmed Type tamsulosin 0.4 mg capsule 0.4 mg PO DAILY #90 caps 04/06/23 03/03/24 Rx omeprazole 40 mg capsule,delayed 40 mg PO QAM 05/30/23 03/03/24 History release levothyroxine 50 mcg tablet 50 mcg PO DAILY #90 tabs 09/20/23 03/03/24 Rx fluticasone propionate 50 1 spray intranasal BID #18.2 mL 10/23/23 03/03/24 Rx mcg/actuation nasal spray,suspension (Flonase Allergy Relief) allopurinol 100 mg tablet 100 mg PO QAM 10/31/23 03/03/24 History escitalopram oxalate 10 mg tablet 10 mg PO QAM 10/31/23 03/03/24 History blood-glucose sensor (FreeStyle #2 ea 11/08/23 03/03/24 Rx Vanessa 3 Sensor device) famotidine 40 mg tablet (Pepcid) 40 mg PO HS #90 tabs 11/14/23 03/03/24 Rx pen needle, diabetic 32 gauge x #100 ea 11/27/23 03/03/24 Rx 5/32" (BD Ultra-Fine Vale Pen Needle) metoprolol succinate 25 mg 25 mg PO QPM #90 tabs 12/11/23 03/03/24 Rx tablet,extended release 24 hr aspirin 81 mg tablet,delayed 81 mg PO DAILY 12/13/23 03/03/24 History release (Adult Aspirin Regimen) finasteride 5 mg tablet (Proscar) 5 mg PO QPM #90 tabs 01/09/24 03/03/24 Rx gabapentin 300 mg capsule 300 mg PO TID #90 caps 01/09/24 03/03/24 Rx prednisone 10 mg tablet 10 mg PO DAILY #30 tabs 01/09/24 03/03/24 Rx insulin degludec 100 unit/mL (3 28 unit subcut QAM 01/16/24 03/03/24 History mL) subcutaneous pen (Tresiba FlexTouch U-100 insulin) insulin lispro 100 unit/mL 6 unit (0.06 mL) subcut QPM #10 mL 01/22/24 03/03/24 Rx subcutaneous pen (Humalog KwikPen (U-100) Insulin) tirzepatide 5 mg/0.5 mL 5 mg (0.5 mL) subcut WK #2 mL 02/04/24 03/03/24 Rx subcutaneous pen injector alprazolam 0.5 mg tablet (Xanax) 0.25 mg (1/2 x 0.5 mg) PO HS #15 02/06/24 03/03/24 Rx tabs midodrine 5 mg tablet 5 mg PO TID #270 tabs 02/06/24 03/03/24 Rx mycophenolate mofetil 250 mg 250 mg PO BID #120 caps 02/08/24 03/03/24 Rx capsule (CellCept) Patient History Medical History (Updated 03/03/24 @ 03:38 by CARMEL Knox) Orthostatic hypotension Cardiomyopathy LV systolic function has normalized. Etiology of CM unknown. Hypothyroidism Anxiety GERD (gastroesophageal reflux disease) Relatively controlled with medication (improved from previous) Recurrent falls History of osteomyelitis left foot Periprosthetic fracture around internal prosthetic joint Cervical spondylosis Migraine Hx of melanoma of skin RT EAR Low iron Anemia stable per patient Hx of esophageal ulcer Hx of gout Controlled with Allopurinol Hyponatremia Chronic kidney disease, stage III (moderate) BPH (benign prostatic hyperplasia) DMII (diabetes mellitus, type 2) Aortic stenosis Mild AV stenosis on 10/15/20 ECHO "AV opens well" on 05/11/21 ECHO -Per 08/2021 cardio note- noted in 2019 - no significant stenosis on most recent ECHO- known sclerotic AV- "no significant stenosis" Venous insufficiency Interstitial lung disease "HAS NOT USED INHALER FOR A LONG TIME" Breathing stable at rest- mild FONTANEZ with long walks (chronic and unchanged) Accelerated idioventricular rhythm Asymptomatic. Beta-juanjose has been initiated since Holter monitor per cardio records Frequent PVCs FOLLOWED BY DR. 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 - 08/06/[place] [facility] [place] of colonoscopy History of esophagogastroduodenoscopy (EGD) with dilation History of wisdom tooth extraction History of tonsillectomy and adenoidectomy History of cardiac cath no stents>YEARS AGO AT [facility] S/P dilatation of esophageal stricture H/O foot surgery RT FOOT History of bilateral knee replacement Family History Father Family history of diabetes mellitus Coronary heart disease Prostate cancer Myocardial infarction Uncle Coronary heart disease Sister Breast cancer Other No family history of adverse response to anesthesia Denies family history of Ovarian cancer Colorectal cancer Social History Smoking Status: Never smoker Second Hand Exposure: No; Do You Dip or Chew Tobacco: No; Hx Alcohol Use: No Hx Substance Use: No Preferred Language: Scottish Communication Ability: Effective Visual Impairment: Limited Hearing Ability: Use of Hearing Aid Field Education Coordinator Required: No Beliefs That Will Affect Care: None marital status: / Current Living Situation: Alone current occupational status: retired How many Children do You have: 3 Feels Safe at Home: Yes Safety Concerns: Feels Safe At This Time Childhood Exposure to Second-Hand Smoke: Yes Diet: low carbohydrate and regular caffeine: Yes during the past year weight has: increased > 10 lbs Dental Care, Regularly: Yes Physical Activity Frequency: 1-2 Times per Week Seatbelt Use: always Sunscreen Use: Yes Assistive Devices: Walker Review of Systems Review of Systems: All systems reviewed & are unremarkable except as noted in HPI & below Physical Exam Constitutional: cooperative and comfortable; no acute distress Eyes: PERRL, conjunctivae normal, anicteric sclerae ENMT: external ear and nose normal, oropharynx normal Neck: trachea midline, no thyromegaly Respiratory: Mild tachypnea, lungs with slight wheeze bilaterally and diminished in bases bilaterally. Symmetrical chest wall movement. No use of accessory muscles. Cardiovascular: RRR, no murmur, no edema Heart Sounds: normal S1 and normal S2 Gastrointestinal (Abdomen): Abdomen distended, semifirm, tender with palpation. No guarding. Bowel sounds hypoactive Musculoskeletal: no cyanosis or clubbing, extremities motor strength 5/5 Skin: no rashes, warm and dry Neurologic: PERRL, EOMI, accommodation nl, no face palsy, no dysarthria Psychiatric: A+Ox3, euthymic affect Results & Data Results & Data Vital Signs (Past 12 Hours) Vital Signs Temp Pulse Pulse Resp BP BP Pulse Ox 03/03/24 02:00 82 19 126/84 97 04/22/24 01:57 03/03/24 01:30 87 21 154/74 H 97 03/03/24 01:23 36.9 C 92 H 21 148/77 H 95 03/03/24 01:09 03/03/24 00:45 88 16 97 03/03/24 00:45 88 16 139/83 97 03/03/24 00:30 86 19 96 03/03/24 00:30 86 19 111/81 96 03/03/24 00:15 85 18 92/56 L 96 03/03/24 00:15 85 18 96 03/03/24 00:00 89 21 96 03/03/24 00:00 89 21 94/70 L 96 03/02/24 23:50 93 H 20 95 03/02/24 23:50 93 H 20 84/63 L 95 03/02/24 23:50 84/63 L 03/02/24 23:48 92 H 12 71/52 L 95 03/02/24 23:48 92 H 12 95 03/02/24 23:46 23 97 03/02/24 23:46 23 76/55 L 97 03/02/24 23:45 78 28 H 96 03/02/24 23:32 93 H 19 83/52 L 96 03/02/24 23:32 93 H 19 96 03/02/24 23:30 94 H 17 97 03/02/24 23:15 96 H 20 93/60 L 97 03/02/24 23:15 96 H 20 97 03/02/24 23:12 102 H 18 97 03/02/24 23:12 102 H 18 96/70 L 97 03/02/24 23:10 93 H 20 97 03/02/24 23:04 95 H 20 98 03/02/24 23:04 95 H 20 95/68 L 98 03/02/24 23:00 18 117/68 99 03/02/24 23:00 18 99 03/02/24 22:59 94 H 20 96 03/02/24 22:59 77/56 L 03/02/24 22:59 77/56 L 03/02/24 22:54 21 63/50 L 95 03/02/24 22:54 21 95 03/02/24 22:51 73/54 L 03/02/24 22:51 91 H 18 73/54 L 97 03/02/24 22:51 91 H 18 97 03/02/24 22:50 91 H 18 99 03/02/24 22:47 96 H 22 72/56 L 99 03/02/24 22:47 96 H 22 99 03/02/24 22:46 92 H 25 H 76/50 L 98 03/02/24 22:46 92 H 25 H 98 03/02/24 22:45 92 H 27 H 67/51 L 97 03/02/24 22:45 92 H 27 H 97 03/02/24 22:41 109 H 20 03/02/24 22:41 109 H 20 82/56 L 03/02/24 22:40 93 H 25 H 03/02/24 22:20 87 18 95 03/02/24 22:15 96 H 19 94/65 L 98 03/02/24 22:15 96 H 19 98 03/02/24 22:10 91 H 21 95 03/02/24 22:00 112 H 19 86/53 L 03/02/24 22:00 112 H 19 03/02/24 21:52 99 H 22 82/50 L 96 03/02/24 21:52 99 H 22 03/02/24 21:50 102 H 22 96 03/02/24 21:49 99 H 16 75/59 L 96 03/02/24 21:49 99 H 16 96 03/02/24 21:48 98 H 21 61/48 L 96 03/02/24 21:48 98 H 21 96 03/02/24 21:47 101 H 16 59/48 L 96 03/02/24 21:47 101 H 16 96 03/02/24 21:47 96 03/02/24 21:47 98 H 03/02/24 21:40 101 H 15 96 03/02/24 21:40 36.7 C 106 H 18 135/87 96 03/02/24 21:32 95 H 23 95 Pulse Ox O2 Del Method O2 Del Method O2 Flow Rate O2 Flow Rate 03/03/24 02:00 Nasal Cannula 3 03/03/24 01:57 Nasal Cannula 3 03/03/24 01:30 Nasal Cannula 3 03/03/24 01:23 Nasal Cannula 3 03/03/24 01:09 96 Nasal Cannula 3 03/03/24 00:45 03/03/24 00:45 03/03/24 00:30 03/03/24 00:30 03/03/24 00:15 03/03/24 00:15 03/03/24 00:00 03/03/24 00:00 03/02/24 23:50 03/02/24 23:50 03/02/24 23:50 03/02/24 23:48 03/02/24 23:48 03/02/24 23:46 03/02/24 23:46 03/02/24 23:45 03/02/24 23:32 Nasal Cannula 3 03/02/24 23:32 03/02/24 23:30 03/02/24 23:15 03/02/24 23:15 03/02/24 23:12 03/02/24 23:12 03/02/24 23:10 03/02/24 23:04 03/02/24 23:04 03/02/24 23:00 03/02/24 23:00 03/02/24 22:59 03/02/24 22:59 03/02/24 22:59 03/02/24 22:54 03/02/24 22:54 03/02/24 22:51 03/02/24 22:51 03/02/24 22:51 03/02/24 22:50 03/02/24 22:47 03/02/24 22:47 03/02/24 22:46 Nasal Cannula 3 03/02/24 22:46 03/02/24 22:45 Nasal Cannula 3 03/02/24 22:45 03/02/24 22:41 03/02/24 22:41 03/02/24 22:40 03/02/24 22:20 03/02/24 22:15 Nasal Cannula 3 03/02/24 22:15 03/02/24 22:10 03/02/24 22:00 03/02/24 22:00 03/02/24 21:52 Nasal Cannula 3 03/02/24 21:52 03/02/24 21:50 03/02/24 21:49 Nasal Cannula 3 03/02/24 21:49 03/02/24 21:48 03/02/24 21:48 03/02/24 21:47 03/02/24 21:47 03/02/24 21:47 Nasal Cannula 3 03/02/24 21:47 03/02/24 21:40 03/02/24 21:40 Nasal Cannula 3 03/02/24 21:32 Laboratory Results EXAM: CT Angiography Chest With Intravenous Contrast CLINICAL HISTORY: Reason for exam: PE, abd pain, n/v, sob. TECHNIQUE: Axial computed tomographic angiography images of the chest with intravenous contrast. CTDI is 28 mGy and DLP is 732 mGy-cm. Automated exposure control was utilized for the study. A dose lowering technique was utilized adhering to the principles of ALARA. MIP reconstructed images were created and reviewed. COMPARISON: No relevant prior studies available. FINDINGS: Pulmonary arteries: Adequate pulmonary artery opacification. Enlarged central pulmonary artery suggesting pulmonary arterial hypertension. No pulmonary embolism. Aorta: No aortic aneurysm or dissection. Thoracic aortic atherosclerosis. Lungs: Coarse reticulations within the lung periphery, greatest at the right lung apex, compatible with nonspecific fibrosis. No consolidation or mass. Pleural space: Unremarkable. No significant effusion. No pneumothorax. Heart: Aortic valvular and mitral annular calcifications. Coronary artery atherosclerosis. No cardiomegaly. Thickened left ventricular wall suggesting left ventricular hypertrophy. No pericardial effusion. No evidence of RV dysfunction. Bones/joints: Reverse right shoulder arthroplasty. No acute fracture. No dislocation. Subacute to chronic sternal body fracture. Soft tissues: Unremarkable. Lymph nodes: Unremarkable. No lymphadenopathy. Upper abdomen: Reported separately. IMPRESSION: No evidence of acute pulmonary embolism. Electronically signed by: Ana Laura Chang M.D. 03/02/24 23:01 PM EXAM: CT Abdomen and Pelvis With Intravenous Contrast CLINICAL HISTORY: Reason for exam: abd pain, n/v, sob. TECHNIQUE: Axial computed tomography images of the abdomen and pelvis with intravenous contrast. CTDI is 26 mGy and DLP is 1409 mGy-cm. Automated exposure control was utilized for the study. A dose lowering technique was utilized adhering to the principles of ALARA. CONTRAST: Patient received OPTIRAY 320 118ML of IV contrast COMPARISON: No relevant prior studies available. FINDINGS: Lung bases: Mild fibrotic changes at the lung bases. No consolidation. ABDOMEN: Liver: Unremarkable. No mass. Gallbladder and bile ducts: Adherent gallstones versus 6 mm gallbladder polyps at the fundus. No cholecystitis or biliary dilatation. Pancreas: Unremarkable. No mass. No ductal dilation. Spleen: Unremarkable. No splenomegaly. Adrenals: Unremarkable. No mass. Kidneys and ureters: Symmetric renal enhancement. No hydronephrosis. Simple right kidney mid pole cyst measuring 9 mm; no further follow-up required. Stomach and bowel: Colonic diverticulosis, severe at the level of the sigmoid colon. No evidence of diverticulitis. No bowel obstruction. No mucosal thickening. PELVIS: Appendix: Normal appendix. Bladder: Small bilateral bladder diverticula. No bladder wall thickening or bladder stone. Reproductive: Prostate calcifications. Prostate is normal in size. ABDOMEN and PELVIS: Intraperitoneal space: Mild mesenteric edema. No free fluid or free air. Bones/joints: Severe disc degeneration in the lumbar spine. Advanced multilevel facet degeneration. Mild joint space narrowing in both hips. No acute fracture or dislocation. Soft tissues: Unremarkable. Vasculature: Atherosclerosis. No aortic aneurysm. Lymph nodes: Unremarkable. No enlarged lymph nodes. IMPRESSION: No acute findings in the abdomen or pelvis. Electronically signed by: Ana Laura Chang M.D. 03/02/24 22:50 PM Coding Level of Care Code 88432 CRITICAL CARE 1ST 30-74M Diagnoses Septic shock A41.9; R65.21 Nausea & vomiting R11.2 Vomiting type: unspecified Cardiomyopathy I42.9 Type 2 diabetes mellitus with stage 3a chronic kidney disease, with long-term current use of insulin E11.22; N18.31; Z79.4 Diabetes mellitus mcc insulin use: with mcc use Diabetes mellitus complication status: with kidney complications Diabetes mellitus complication detail: with chronic kidney disease Chronic kidney disease stage: stage 3 (moderate) Chronic kidney disease stage 3 subtype: stage 3a (GFR 45-59) CKD (chronic kidney disease) N18.9 Hyperlipidemia E78.5 Interstitial lung disease J84.9 Accelerated idioventricular rhythm I44.2 Pulmonary hypertension I27.20 Aortic valve stenosis, etiology of cardiac valve disease unspecified I35.0 Cardiac valve disease etiology: etiology unspecified Hypothyroidism E03.9 GERD (gastroesophageal reflux disease) K21.9 Anxiety F41.9 Orthostatic hypotension I95.1 Elevated troponin R79.89 (2) Nausea & vomiting Vomiting type: unspecified Qualified Code(s): R11.2 - Nausea with vomiting, unspecified (4) DMII (diabetes mellitus, type 2) Diabetes mellitus mcc insulin use: with mcc use Diabetes mellitus complication status: with kidney complications Diabetes mellitus complication detail: with chronic kidney disease Chronic kidney disease stage: stage 3 (moderate) Chronic kidney disease stage 3 subtype: stage 3a (GFR 45-59) Qualified Code(s): E11.22 - Type 2 diabetes mellitus with diabetic chronic kidney disease; N18.31 - Chronic kidney disease, stage 3a; Z79.4 - half-way (current) use of insulin (10) Aortic stenosis Cardiac valve disease etiology: etiology unspecified Qualified Code(s): I35.0 - Nonrheumatic aortic (valve) stenosis
[2024-03-03 02:37] LABS: Appearance Urine Clear (Clear); Bacteria Urine Automated None Seen (None Seen); Bilirubin Urine Negative (Negative); Blood Urine Negative (Negative); Color Urine Yellow; Glucose Urine UA Negative (Negative); Hyaline Casts Urine Present /lpf (None Presnt); Ketones Urine 1+ (Negative); Leukocyte Esterase Urine 1+ (Negative); Nitrite Urine Negative (Negative); Protein Urine Trace (Negative); RBC Urine Automated 0-2 /hpf (0-2); Specific Gravity Urine > 1.045 (1.000-1.030); Urobilinogen Urine Negative (Negative); pH Urine 6.5 (4.5-7.5)
[2024-03-03] MEDS: ACETAMINOPHEN 325 MG TAB PO PRN (02:56)
[2024-03-03] MEDS: metroNIDAZOLE 500 MG/100 ML BAG IV SCH (02:57)
[2024-03-03] MEDS: HYDROCORTISONE SOD 50 MG in SYRINGE 0 ML IV STA (02:57)
[2024-03-03] MEDS: PLASMA-LYTE A 1,000 ML IV SCH (02:57)
[2024-03-03] MEDS: LEVOTHYROXINE SODIUM 50 MCG TABLET PO SCH (05:16)
[2024-03-03] MEDS: ENOXAPARIN INJ 40 MG/0.4 ML SYR SQ SCH (05:16)
[2024-03-03 05:19] LABS: Hematocrit (blood only) 33.7 % (42.0-52.0); Hemoglobin 11.2 g/dl (14.0-18.0); Mean Corpuscular Hemoglobin 30.4 pg (25.0-34.0); Mean Corpuscular Hgb Conc 33.2 g/dL (32.0-36.0); Mean Corpuscular Volume 91.3 fL (80.0-100.0); Mean Platelet Volume 9.9 fL (9.4-12.4); Platelet Count 298 K/uL (130-400); RDW Coefficient of Variation 14.2 % (11.5-14.5); RDW Standard Deviation 47.1 fL (36.4-46.3); Red Blood Count 3.69 M/uL (4.70-6.10); White Blood Count 21.93 K/ul (4.8-10.8)
[2024-03-03 05:20] LABS: Phosphorus 2.8 mg/dl (2.5-4.9)
--- NOTE | 2024-03-03 05:41 | Billing Data ---
Date of Service March 03, 2024 Coding Level of Care Code 24261 CRITICAL CARE
[2024-03-03 05:46] LABS: Troponin I High Sensitivity 81.5 pg/ml (0-20)
[2024-03-03 05:57] LABS: Basophils # (auto) 0.06 K/uL (0.00-0.20); Basophils % (auto) 0.3 %; Immature Granulocytes # (auto) 0.15 K/uL (0.01-0.20); Immature Granulocytes % (auto) 0.7 %; Lymphocytes # (auto) 0.38 K/uL (1.20-3.40); Lymphocytes % (auto) 1.7 %; Monocytes # (auto) 1.17 K/uL (0.11-0.59); Monocytes % (auto) 5.3 %; Neutrophils # (auto) 20.17 K/uL (1.40-6.50)
--- NOTE | 2024-03-03 06:58 | XRay Report ---
XR chest 1V portable HISTORY: 84 years-old Male Sepsis COMPARISON: CTA chest of same day, chest CT 02/26/2024. TECHNIQUE: AP view of the chest FINDINGS: Cardiac silhouette is enlarged. No pneumothorax, pleural effusion, or overt pulmonary edema or new ai rspace consolidation. Chronic interstitial lung disease redemonstrated. Reverse right shoulder arthro plasty. Degenerative changes of the spine and left shoulder. IMPRESSION: 1. Cardiomegaly without acute process of the chest. 2. Chronic interstitial lung disease. ACT 112: Negative or not required by law. The above report was generated using voice recognition software. It may contain grammatical, syntax o r spelling errors. Electronically signed by: Alverto Rico M.D. 03/03/2024 6:55 AM
[2024-03-03 07:33] LABS: Albumin Level 3.1 gm/dl (3.4-5.0); Bilirubin,Total 0.5 mg/dl (0.2-1.0); Calcium 8.4 mg/dl (8.6-10.3); Magnesium 1.8 mg/dl (1.7-2.4); Potassium 4.1 mmol/L (3.5-5.1)
[2024-03-03 07:39] LABS: Albumin Globulin Ratio 1.3 (0.9-2); BUN Creatinine Ratio 14.8 (10-20); Creatinine Clr Calc Pharmacy 35.5 ml/min; Est GFR (African American) 43.9 ml/min; Est GFR (Non-African American) 37.9 ml/min; Globulin 2.3 gm/dl (2.5-4.0); Total Protein 5.4 gm/dl (6.0-8.3)
[2024-03-03] MEDS ORDERED: MAG SULFATE 50% 1GM/2ML VIAL IV ONE (07:40)
--- NOTE | 2024-03-03 07:44 | XRay Report ---
KUB HISTORY: Generalized abdominal pain. COMPARISON: KUB 05/11/2021. FINDINGS: The bowel gas pattern is unremarkable. There are no dilated loops of small bowel to suggest an obstruction. No renal calculi. No ureteral calculi. No pneumoperitoneum or pneumatosis. Protocol , healed left-sided rib fractures. Prostatic calcifications are again noted. IMPRESSION: Nonobstructive bowel gas pattern. ACT 112: Negative or not required by law. Electronically signed by: Artis Ledesma M.D. 03/03/2024 7:42 AM
[2024-03-03] MEDS: ICU Protocol for HYPERglycemia SCH (08:09)
[2024-03-03] MEDS: MAGNESIUM SULFATE / D5W 1 GM/100 ML BAG IV ONE (08:24)
[2024-03-03] MEDS: MIDODRINE HCL 2.5 MG TAB PO SCH (08:26)
[2024-03-03] MEDS: allopurinoL 100 MG TAB PO SCH (08:28)
[2024-03-03] MEDS: ESCITALOPRAM OXALATE 10 MG TAB PO SCH (08:28)
[2024-03-03] MEDS: INSULIN ASPART PER UNIT CHARGE SC SCH (08:28)
[2024-03-03] MEDS: ASPIRIN 81 MG ECTAB PO SCH (08:29)
[2024-03-03] MEDS: MYCOPHENOLATE MOFETIL 250 MG CAP PO SCH (08:29)
[2024-03-03] MEDS: GABAPENTIN 300 MG CAP PO SCH (08:29)
[2024-03-03] MEDS: TAMSULOSIN HCL 0.4 MG CAP PO SCH (08:29)
[2024-03-03] MEDS: PANTOprazole 40 MG TAB PO SCH (08:29)
[2024-03-03] MEDS: predniSONE 10 MG TABLET PO SCH (08:29)
--- NOTE | 2024-03-03 08:40 | Critical Care Progress Note ---
Date of Service March 03, 2024 Assessment & Plan (1) Septic shock: (2) Nausea & vomiting: (3) Acute hypotension: (4) Elevated troponin: (5) Cardiomyopathy: (6) GERD (gastroesophageal reflux disease): (7) DMII (diabetes mellitus, type 2): (8) Acute kidney injury superimposed on chronic kidney disease: (9) Aortic stenosis: Plan Neuro: Anxiety/depressioncontinue SSRI Cardiac: Hemodynamic instability on initial presentation likely in the setting of shock/sepsis. Currently hemodynamically stable, pressures stable since discontinuation of Levophed, likely appropriate for downgrade today. No need for additional steroids above baseline. Mildly elevated troponin likely due to demand ischemia. Resp: Interstitial lung disease/hypoxiapatient follows with Dr. Mares for management of interstitial lung disease. CTA negative for PE, and no evidence of pulmonary edema or consolidation. Continue immunosuppression with mycophenolate, and prednisone. No indication for diuresis at this time, but careful with aggressive fluid resuscitation. Nebs as needed. GI: CT abdomen/pelvis without acute abnormality. Abdominal pain, nausea, vomiting appear largely resolved. GERD - continue Protonix Renal: CKDcreatinine 1.6 with baseline around 1.5. Mag repleted, target K>4, Mg>2. Monitor routine BMPs and replete electrolytes as indicated. : BPH - Continue tamsulosin and finasteride. Strict I's and O's Endo: DM type IIcurrently euglycemic. Continue with sliding scale. ICU hyperglycemic protocol Hypothyroidismcontinue Synthroid Heme: H&H stable, monitor routine CBC ID: ?sepsis though unclear source. Continue empiric abx given immunosuppressed s tatus -No evidence of pulmonary infiltrates on CT, although nasal MRSA is positive. Will continue coverage with vancomycin -Bio fire negative -CT abdomen and pelvis negative for acute intra-abdominal findings. Will continue intra-abdominal coverage with cefepime and Flagyl (penicillin allergy) -Blood cultures and urine culture pending Lines/Access: Peripheral IVs DVT ppx: Lovenox Admission and Anticipated Discharge Date Admission Date: March 02, 2024 Supervising Physician Co-Signing Physician Notes Dr. Haley was the resident-physician during care of patient. I separately evaluated patient for kirby portions of the history and the exam. I was present during the critical portion of medical decision making, and I discussed the case with the resident. I generally agree with the findings and plan except for any additions/exceptions noted. Patient seen and examined at bedside. No acute distress, no adverse events overnight His map was 90 at time of examination. He was saturating 96% on 2 L nasal cannula. I was able to go down to 1 L. Denies any nausea or vomiting since coming to the hospital. Did have a little bit of breakfast without any issues. Denies any chest pain, no shortness of breath. No headache, no blurry vision No abdominal pain. Constitutional: No acute distress HEENT: EOMI, PERRLA Respiratory system: Decreased air entry bilaterally, no wheeze, no rhonchi, positive Velcro like crackles appreciated bilaterally CVS: S1-S2 positive, positive 2 out of 6 systolic murmur appreciated best at aorta Abdomen: Soft, nontender, nondistended, positive bowel sounds x4 Extremities: +2 pulses bilaterally radialis/ dorsalis pedis, no cyanosis, no edema Neuro: Awake alert oriented x3 Psych: Normal mood and affect G/U: Positive Maier --Prophylaxis VTE: Lovenox GI: Pantoprazole Lines: Peripheral Diet: Cardiac Plan: In/out: +1.8 L, urine output 600 Etiology for nausea vomiting is not clear. Could be viral. Respiratory bio fire is negative for everything. CT abdomen pelvis negative for any acute etiology CT chest does not show any significant changes from his baseline although it was motion degraded study. I do not see any signs of liver injury, AST, ALT, alk phos within normal limit. Continue with mycophenolate, continue with home dose of prednisone. He did get hydrocortisone 50 mg yesterday He has been off vasopressors since 4 in the morning. The patient is able to maintain his blood pressure to room without vasopressors and okay to be downgraded Continue with empiric antibiotics for the time being Please note the above document was generated using voice recognition software. It may contain grammatical, syntax or spelling errors.Any formal questions or concerns about the content, text or information contained within the body of this dictation should be directly addressed to the provider for clarification. Subjective Patient evaluated at bedside this morning, notes that he is feeling significantly better this morning. Denies abdominal pain, N/V, though appetite is still poor, ate very little of his breakfast. Review of Systems Review of Systems: as per HPI Physical Exam Physical Exam: Gen: Alert and oriented, no acute distress Respiratory: +Velcro crackles in lung bases, mild conversational dyspnea Skin: warm dry, no rashes noted Psych: mood affect congruence Results & Data Results & Data Vital Signs (Past 12 Hours) Vital Signs Temp Pulse Pulse Resp BP BP Pulse Ox 03/03/24 07:30 103/67 03/03/24 07:00 88 23 108/61 95 03/03/24 06:00 86 21 123/70 96 03/03/24 05:30 78 15 92/74 L 97 03/03/24 05:00 84 14 95/77 L 96 03/03/24 04:30 36.7 C 84 20 111/61 97 03/03/24 04:00 37 C 86 20 87/61 L 97 03/03/24 03:30 87 18 95/62 L 98 03/03/24 03:00 88 18 111/62 96 03/03/24 02:30 88 15 119/56 L 98 03/03/24 02:15 85 14 97/61 L 96 03/03/24 02:00 82 19 126/84 97 03/03/24 01:57 03/03/24 01:30 87 21 154/74 H 97 03/03/24 01:23 36.9 C 92 H 21 148/77 H 95 03/03/24 01:09 03/03/24 00:45 88 16 97 03/03/24 00:45 88 16 139/83 97 03/03/24 00:30 86 19 96 03/03/24 00:30 86 19 111/81 96 03/03/24 00:15 85 18 92/56 L 96 03/03/24 00:15 85 18 96 03/03/24 00:00 89 21 96 03/03/24 00:00 89 21 94/70 L 96 03/02/24 23:50 93 H 20 95 03/02/24 23:50 93 H 20 84/63 L 95 03/02/24 23:50 84/63 L 03/02/24 23:48 92 H 12 71/52 L 95 03/02/24 23:48 92 H 12 95 03/02/24 23:46 23 97 03/02/24 23:46 23 76/55 L 97 03/02/24 23:45 78 28 H 96 03/02/24 23:32 93 H 19 83/52 L 96 03/02/24 23:32 93 H 19 96 03/02/24 23:30 94 H 17 97 03/02/24 23:15 96 H 20 93/60 L 97 03/02/24 23:15 96 H 20 97 03/02/24 23:12 102 H 18 97 03/02/24 23:12 102 H 18 96/70 L 97 03/02/24 23:10 93 H 20 97 03/02/24 23:04 95 H 20 98 03/02/24 23:04 95 H 20 95/68 L 98 03/02/24 23:00 18 117/68 99 03/02/24 23:00 18 99 03/02/24 22:59 94 H 20 96 03/02/24 22:59 77/56 L 03/02/24 22:59 77/56 L 03/02/24 22:54 21 63/50 L 95 03/02/24 22:54 21 95 03/02/24 22:51 73/54 L 03/02/24 22:51 91 H 18 73/54 L 97 03/02/24 22:51 91 H 18 97 03/02/24 22:50 91 H 18 99 03/02/24 22:47 96 H 22 72/56 L 99 03/02/24 22:47 96 H 22 99 03/02/24 22:46 92 H 25 H 76/50 L 98 03/02/24 22:46 92 H 25 H 98 03/02/24 22:45 92 H 27 H 67/51 L 97 03/02/24 22:45 92 H 27 H 97 03/02/24 22:41 109 H 20 03/02/24 22:41 109 H 20 82/56 L 03/02/24 22:40 93 H 25 H 03/02/24 22:20 87 18 95 03/02/24 22:15 96 H 19 94/65 L 98 03/02/24 22:15 96 H 19 98 03/02/24 22:10 91 H 21 95 03/02/24 22:00 112 H 19 86/53 L 03/02/24 22:00 112 H 19 03/02/24 21:52 99 H 22 82/50 L 96 03/02/24 21:52 99 H 22 03/02/24 21:50 102 H 22 96 03/02/24 21:49 99 H 16 75/59 L 96 03/02/24 21:49 99 H 16 96 03/02/24 21:48 98 H 21 61/48 L 96 03/02/24 21:48 98 H 21 96 03/02/24 21:47 101 H 16 59/48 L 96 03/02/24 21:47 101 H 16 96 03/02/24 21:47 96 03/02/24 21:47 98 H 03/02/24 21:40 101 H 15 96 03/02/24 21:40 36.7 C 106 H 18 135/87 96 03/02/24 21:32 95 H 23 95 Pulse Ox O2 Del Method O2 Del Method O2 Flow Rate O2 Flow Rate 03/03/24 07:30 03/03/24 07:00 Nasal Cannula 2 03/03/24 06:00 Nasal Cannula 2 03/03/24 05:30 Nasal Cannula 3 03/03/24 05:00 Nasal Cannula 3 03/03/24 04:30 Nasal Cannula 3 03/03/24 04:00 Nasal Cannula 3 03/03/24 03:30 Nasal Cannula 3 03/03/24 03:00 Nasal Cannula 3 03/03/24 02:30 Nasal Cannula 3 03/03/24 02:15 Nasal Cannula 3 03/03/24 02:00 Nasal Cannula 3 03/03/24 01:57 Nasal Cannula 3 03/03/24 01:30 Nasal Cannula 3 03/03/24 01:23 Nasal Cannula 3 03/03/24 01:09 96 Nasal Cannula 3 03/03/24 00:45 03/03/24 00:45 03/03/24 00:30 03/03/24 00:30 03/03/24 00:15 03/03/24 00:15 03/03/24 00:00 03/03/24 00:00 03/02/24 23:50 03/02/24 23:50 03/02/24 23:50 03/02/24 23:48 03/02/24 23:48 03/02/24 23:46 03/02/24 23:46 03/02/24 23:45 03/02/24 23:32 Nasal Cannula 3 03/02/24 23:32 03/02/24 23:30 03/02/24 23:15 03/02/24 23:15 03/02/24 23:12 03/02/24 23:12 03/02/24 23:10 03/02/24 23:04 03/02/24 23:04 03/02/24 23:00 03/02/24 23:00 03/02/24 22:59 03/02/24 22:59 03/02/24 22:59 03/02/24 22:54 03/02/24 22:54 03/02/24 22:51 03/02/24 22:51 03/02/24 22:51 03/02/24 22:50 03/02/24 22:47 03/02/24 22:47 03/02/24 22:46 Nasal Cannula 3 03/02/24 22:46 03/02/24 22:45 Nasal Cannula 3 03/02/24 22:45 03/02/24 22:41 03/02/24 22:41 03/02/24 22:40 03/02/24 22:20 03/02/24 22:15 Nasal Cannula 3 03/02/24 22:15 03/02/24 22:10 03/02/24 22:00 03/02/24 22:00 03/02/24 21:52 Nasal Cannula 3 03/02/24 21:52 03/02/24 21:50 03/02/24 21:49 Nasal Cannula 3 03/02/24 21:49 03/02/24 21:48 03/02/24 21:48 03/02/24 21:47 03/02/24 21:47 03/02/24 21:47 Nasal Cannula 3 03/02/24 21:47 03/02/24 21:40 03/02/24 21:40 Nasal Cannula 3 03/02/24 21:32 Resident Activity Tracking Resident Involvement: Resident Care Provided Care Provided: Adult Hospital Medicine (2) Nausea & vomiting Vomiting type: unspecified Qualified Code(s): R11.2 - Nausea with vomiting, unspecified (7) DMII (diabetes mellitus, type 2) Chronic kidney disease stage: stage 3 (moderate) Chronic kidney disease stage 3 subtype: stage 3a (GFR 45-59) Diabetes mellitus complication detail: with chronic kidney disease Diabetes mellitus complication status: with kidney complications Diabetes mellitus tank terminal gauger insulin use: with care home use Qualified Code(s): E11.22 - Type 2 diabetes mellitus with diabetic chronic kidney disease; N18.31 - Chronic kidney disease, stage 3a; Z79.4 - supervisor intermediates (current) use of insulin (9) Aortic stenosis Cardiac valve disease etiology: etiology unspecified Qualified Code(s): I35.0 - Nonrheumatic aortic (valve) stenosis
[2024-03-03] MEDS ORDERED: LEVOTHYROXINE SODIUM 50 MCG TABLET PO SCH (09:00)
[2024-03-03] MEDS: ONDANSETRON INJ 2 MG/ML 2 ML VIAL ONE (09:10)
--- NOTE | 2024-03-03 10:46 | Billing Data ---
Date of Service March 03, 2024 Coding Level of Care Code 66091 SUB INP/OBS CARE
[2024-03-03] MEDS: CEFEPIME 2,000 MG in SYRINGE 0 ML IV SCH (10:48)
--- NOTE | 2024-03-03 10:49 | Pharmacy Report ---
Pharmacy PK ABX Note - Date of Service March 03, 2024 - Assessment and Plan Assessment 84 year old M receiving Vancomycin, Cefepime and Metronidazole for treatment of septic shock possibly from a GI source but true source unknown at this time. Abx are more empiric in nature at this time. * Day #1 of antimicrobial therapy. Patient is immunocompromised on chronic prednisone and CellCept. Penicillin (hives) and Sulfa (hives) allergies. * Afebrile. Leukocytosis of 22k today. SCr still elevated at 1.62 mg/dL, slightly above baseline. Procalcitonin was 1.68 ng/mL. MRSA nasal swab positive. Respiratory biofire negative. Urine and blood cultures pending. Plan Vancomycin * Loading dose: 1750 mg IV x 1 * Maintenance dose: 750 mg IV every 24 hours * Regimen is predicted to achieve target AUC/RICKY of 400-600 mg/L.hr * No level will be ordered unless therapy extends beyond 48 hours Cefepime * 2000 mg IV every 12 hours - appropriate per renal fxn Metronidazole * 500 mg IV every 8 hours Pharmacy will continue to follow and will adjust dose/frequency as necessary. Thank you. Pharmacy has transitioned to AUC monitoring for vancomycin. AUC/RICKY is the preferred PK/PD target and is associated with decreased risk of nephrotoxicity compared to traditional trough targets.
--- NOTE | 2024-03-03 10:59 | Electrocardiogram Report ---
Test Reason : Blood Pressure : / mmHG Vent. Rate : 094 BPM Atrial Rate : 094 BPM P-R Int : 162 ms QRS Dur : 148 ms QT Int : 390 ms P-R-T Axes : 036 -88 -01 degrees QTc Int : 487 ms Normal sinus rhythm with sinus arrhythmia Right bundle branch block Left anterior fascicular block Bifascicular block Abnormal ECG When compared with ECG of 31-OCT-2023 11:01, Premature atrial complexes are no longer Present Left anterior fascicular block is now Present Nonspecific T wave abnormality no longer evident in Anterior leads Confirmed by Jeronimo Moise ([id number]) on 03/03/2024 10:59:41 AM Referred By: REFERRED SELF Confirmed By:Jeronimo Moise
[2024-03-03] MEDS: VANCOMYCIN HCL 750 MG in SODIUM CHLORIDE 0.9% 250 ML IV SCH (12:24)
[2024-03-03] MEDS: POLYETHYLENE (MIRALAX) 17 GM PACK PO SCH (14:50)
[2024-03-03] MEDS: FINASTERIDE 5 MG TAB PO SCH (19:52)
[2024-03-03] MEDS: ALPRAZolam 0.25 MG TABLET PO SCH (20:04)
--- NOTE | 2024-03-03 21:03 | Hospitalist Progress Note ---
Date of Service March 03, 2024 Assessment & Plan (1) Septic shock: (2) Nausea & vomiting: (3) Acute hypotension: (4) Elevated troponin: (5) Cardiomyopathy: (6) GERD (gastroesophageal reflux disease): (7) DMII (diabetes mellitus, type 2): (8) Acute kidney injury superimposed on chronic kidney disease: (9) Aortic stenosis: Plan Septic shock- Admitted to intensive care unit Unclear source at this time, likely that of GI such as diverticulitis versus urinary tract infection/prostatitis Follow all cultures and sensitivities Patient is immunocompromised on mycophenolate and prednisone Empiric linezolid 6 mg IV every 12 hours, and cefepime 2 g IV every 12 hours Status post 1500 mL normal saline Continue IV fluid rehydration with Plasma-Lyte at 80 mL/h Continue Levophed infusion begun in the ED with usual parameters Consult product planner Patient is now off levophed. WIll downgrade him off the medical floor. Patient will continue on antibiotics: now cefepime, flagyl, van Elevated troponin/aortic stenosis/cardiomyopathy/PVCs/hypertension history- Hypotensive in the emergency department, to a blood pressure of 59/48 Initial troponin 65.3, and will be followed serially Continue Levophed infusion Follow serial laboratories Hold metoprolol succinate Acute kidney injury superimposed on CKD- Creatinine 1.68, with baseline 1.27 Follow serial laboratories and wants to improve with IV fluid resuscitation and improving perfusion with increasing blood pressure BPH with LUTS- Urinary retention of 3 to 6 mL noted in the ED Patient preferring to not have Maier catheter Maier urinalysis and urine culture sensitivity when patient can provide a sample Continue tamsulosin and finasteride Admission and Anticipated Discharge Date Admission Date: March 02, 2024 Subjective Patient reports feeling better today. Review of Systems Review of Systems: All systems reviewed & are unremarkable except as noted in HPI & below Physical Exam Physical Exam: The patient is awake, alert and oriented 3, lying in bed and in no acute distress. HEENT--PERRL, EOMI, mucous membranes and oropharynx dry. Neck--supple. No JVD. No bruits. Thyroid normal, trachea midline, no adenopathy. Heart--normal S1 and S2. No murmurs, rubs or gallops. Lungs--clear bilaterally, no respiratory distress, no accessory muscle use. Abdomen--normal bowel sounds and soft. Nontender Nondistended, no hernias or m asses, no organomegaly. Extremities--no cyanosis or clubbing. No edema. Results & Data Results & Data Vital Signs (Past 12 Hours) Vital Signs Temp Pulse Resp BP Pulse Ox O2 Del Method O2 Flow Rate 03/03/24 17:24 36.5 C 136/75 03/03/24 17:24 73 23 95 03/03/24 13:00 73 22 128/74 97 Room Air 03/03/24 12:00 76 17 134/64 95 Room Air 03/03/24 11:00 80 15 116/62 94 Room Air 03/03/24 10:00 79 25 H 100/57 L 90 Room Air 03/03/24 09:36 Nasal Cannula 2 PG Care Time/CCT Total # of Minutes Spent Total Time Spent with Patient: Total time spent is greater than 50% in coordination of care (as documented) at patient's floor/unit and/or counseling patient: Coding Level of Care Code 82837 SUB INP/OBS CARE 3/50MIN Diagnoses Septic shock A41.9; R65.21 Nausea & vomiting R11.2 Vomiting type: unspecified Acute hypotension I95.9 Elevated troponin R79.89 Cardiomyopathy I42.9 GERD (gastroesophageal reflux disease) K21.9 Type 2 diabetes mellitus with stage 3a chronic kidney disease, with long-term current use of insulin E11.22; N18.31; Z79.4 Chronic kidney disease stage: stage 3 (moderate) Chronic kidney disease stage 3 subtype: stage 3a (GFR 45-59) Diabetes mellitus complication detail: with chronic kidney disease Diabetes mellitus complication status: with kidney complications Diabetes mellitus penitentiary insulin use: with line runner use Acute kidney injury superimposed on chronic kidney disease N17.9; N18.9 Aortic valve stenosis, etiology of cardiac valve disease unspecified I35.0 Cardiac valve disease etiology: etiology unspecified (2) Nausea & vomiting Vomiting type: unspecified Qualified Code(s): R11.2 - Nausea with vomiting, unspecified (7) DMII (diabetes mellitus, type 2) Chronic kidney disease stage: stage 3 (moderate) Chronic kidney disease stage 3 subtype: stage 3a (GFR 45-59) Diabetes mellitus complication detail: with chronic kidney disease Diabetes mellitus complication status: with kidney complications Diabetes mellitus line runner insulin use: with line runner use Qualified Code(s): E11.22 - Type 2 diabetes mellitus with diabetic chronic kidney disease; N18.31 - Chronic kidney disease, stage 3a; Z79.4 - group home (current) use of insulin (9) Aortic stenosis Cardiac valve disease etiology: etiology unspecified Qualified Code(s): I35.0 - Nonrheumatic aortic (valve) stenosis
[2024-03-04 04:52] LABS: Basophils # (auto) 0.03 K/uL (0.00-0.20); Basophils % (auto) 0.2 %; Eosinophils # (auto) 0.08 K/uL (0.00-0.50); Eosinophils % (auto) 0.6 %; Hematocrit (blood only) 30.7 % (42.0-52.0); Hemoglobin 10.2 g/dl (14.0-18.0); Immature Granulocytes # (auto) 0.07 K/uL (0.01-0.20); Immature Granulocytes % (auto) 0.5 %; Lymphocytes # (auto) 0.71 K/uL (1.20-3.40); Lymphocytes % (auto) 5.5 %; Mean Corpuscular Hemoglobin 29.9 pg (25.0-34.0); Mean Corpuscular Hgb Conc 33.2 g/dL (32.0-36.0); Mean Platelet Volume 10.1 fL (9.4-12.4); Neutrophils # (auto) 11.09 K/uL (1.40-6.50); Neutrophils % (auto) 86.2 %; Platelet Count 256 K/uL (130-400); RDW Coefficient of Variation 13.8 % (11.5-14.5); RDW Standard Deviation 45.5 fL (36.4-46.3); Red Blood Count 3.41 M/uL (4.70-6.10); White Blood Count 12.88 K/ul (4.8-10.8)
[2024-03-04 05:15] LABS: Albumin Globulin Ratio 1.4 (0.9-2); Albumin Level 3.1 gm/dl (3.4-5.0); BUN Creatinine Ratio 15.4 (10-20); Bilirubin,Total 0.4 mg/dl (0.2-1.0); Calcium 8.2 mg/dl (8.6-10.3); Creatinine Clr Calc Pharmacy 35.5 ml/min; Est GFR (African American) 43.9 ml/min; Est GFR (Non-African American) 37.9 ml/min; Globulin 2.2 gm/dl (2.5-4.0); Potassium 3.8 mmol/L (3.5-5.1); Total Protein 5.3 gm/dl (6.0-8.3)
--- NOTE | 2024-03-04 07:29 | Pulmonology Progress Note ---
Date of Service March 04, 2024 Assessment & Plan (1) Interstitial lung disease: (2) Pulmonary hypertension: (3) Nocturnal hypoxia: Plan CT chest 03/02/2024 personally reviewed: Increased reticular markings and interstitial thickening appreciated bilaterally upper and lower lobes especially in the right upper lobe Honeycombing appreciated in the right upper lobe Elevated right hemidiaphragm No significant mediastinal lymphadenopathy -- Interstitial lung disease On mycophenolate along with prednisone 10 mg on a daily basis No clear signs of infiltrate on the CT chest, it was a motion degraded study Respiratory bio fire negative for everything, nasal MRSA positive I do not see any signs of liver injury, AST, ALT, alk phos within normal limit. Okay to continue mycophenolate -- Nocturnal hypoxia Uses 2 L oxygen at night Interstitial lung disease/hypoxiapatient follows with Dr. Mares for management of interstitial lung disease. CTA negative for PE, and no evidence of pulmonary edema or consolidation. Continue immunosuppression with mycophenolate, and prednisone. No indication for diuresis at this time, but careful with aggressive fluid resuscitation. Nebs as needed. Plan: In/out: +1.6 L, urine output 451. We do not have good measurement of urine output If the blood culture did not grow anything today would recommend to discontinue vancomycin Cefepime and Flagyl could be continued for another 3 days. Continue with CellCept and prednisone at home dose. Zofran as needed for nausea. No further recommendation from pulmonary perspective, will sign off Please call directly with any questions Please note the above document was generated using voice recognition software. It may contain grammatical, syntax or spelling errors.Any formal questions or concerns about the content, text or information contained within the body of this dictation should be directly addressed to the provider for clarification. Admission and Anticipated Discharge Date Admission Date: March 02, 2024 Subjective Patient seen and examined at bedside. No acute distress, no adverse events overnight He was saturating well on room air. He stated that he had a good night sleep and is feeling much better compared to yesterday Had only minimal nausea yesterday but none since then Was able to finish his breakfast without any issues. Denies any diarrhea. No abdominal pain Occasional cough with clear phlegm. Review of Systems 2 Review of Systems: All systems reviewed & are unremarkable except as noted in Subjective Physical Exam 2 Physical Exam: Constitutional: No acute distress HEENT: EOMI, PERRLA Respiratory system: Decreased air entry bilaterally, no wheeze, no rhonchi, positive Velcro like crackles appreciated bilaterally CVS: S1-S2 positive, positive 2 out of 6 systolic murmur appreciated best at aorta Abdomen: Soft, nontender, nondistended, positive bowel sounds x4 Extremities: +2 pulses bilaterally radialis/ dorsalis pedis, no cyanosis, no edema Neuro: Awake alert oriented x3 Psych: Normal mood and affect G/U: Positive Maier Skin: no rashes, warm and dry Lymphatic: no cervical or axillary lymphadenopathy Results & Data Results & Data Vital Signs (Past 12 Hours) Vital Signs Pulse Resp BP Pulse Ox Pulse Ox O2 Del Method O2 Del Method 03/04/24 06:00 65 24 147/81 H 91 03/04/24 05:00 67 26 H 92 03/04/24 04:00 66 23 92 03/04/24 03:00 72 12 94 03/04/24 02:00 66 23 93 03/04/24 01:09 92 Nasal Cannula 03/04/24 01:00 71 25 H 94 03/04/24 00:00 69 23 92 03/03/24 23:00 67 13 91 03/03/24 22:00 76 17 94 03/03/24 21:47 95 Room Air 03/03/24 21:00 74 18 94 03/03/24 20:24 146/87 H 03/03/24 20:14 75 18 92 03/03/24 20:00 76 20 95 03/03/24 20:00 Room Air O2 Flow Rate 03/04/24 06:00 03/04/24 05:00 03/04/24 04:00 03/04/24 03:00 03/04/24 02:00 03/04/24 01:09 2 03/04/24 01:00 03/04/24 00:00 03/03/24 23:00 03/03/24 22:00 03/03/24 21:47 03/03/24 21:00 03/03/24 20:24 03/03/24 20:14 03/03/24 20:00 03/03/24 20:00 Laboratory Results 03/04/24 04:20 03/04/24 04:20 PG Care Time/CCT Total # of Minutes Spent Total Time Spent with Patient: Total time spent is greater than 50% in coordination of care (as documented) at patient's floor/unit and/or counseling patient: Coding Level of Care Code 97766 SUB INP/OBS CARE MIN Diagnoses Interstitial lung disease J84.9 Pulmonary hypertension I27.20 Nocturnal hypoxia G47.34
[2024-03-04] MEDS: SODIUM CHLORIDE 0.9% 500 ML IV SCH (08:29)
--- NOTE | 2024-03-04 17:20 | Infectious Disease Consult ---
Date of Consultation March 04, 2024 Assessment & Plan (1) Acute hypotension: (2) Nausea & vomiting: (3) Abdominal pain: (4) Acute kidney injury: (5) Cardiomyopathy: (6) DMII (diabetes mellitus, type 2): Plan 84yo M with h/o cardiomyopathy, hypothyroidism, T2DM, GERD, CKD III, HTN, HLD, interstitial lung disease on supplemental O2 qhs, on mycophenolate and prednisone 10mg daily, pulmonary HTN, orthostatic hypotension on midodrine, Schatzkis ring, AV sclerosis who presented on 03/02 with acute onset of generalized abdominal pain and vomiting that started on morning of admission. No associated diarrhea. He had no changes in activity or PO intake prior to this. He denied any fevers, recent illness, cough, congestion, chest pain. He was found to be afebrile, O2 sats 96% on RA and 2L. He was also hypotensive to 50s and started on levophed with admission to the ICU. Initial labs with WBC 20.05>>12.88, hyponatremia, AGMA, Cr 1.68>>1.62, LFT wnl. Troponin elevated. PCT 1.68. UA with 11-20 WBC, 3-5 epith cells. RPP negative. CTAP with IV negative for acute findings, noted diverticulosis. CTA chest negative for PE. KUB with nonobstructive bowel gas pattern. He was started on empiric abx with Vanc, cefepime, an flagyl. Pressors now off and patient has been downgraded. ID consulted 03/04 for assistance. I am not entirely clear on where his infectious source is. CTAP was unremarkable. He has noted diverticulosis but doesnt have any diverticulitis and also didnt have reported diarrhea (per chart). CT chest didnt have any consolidation. His BCx are no growth. UA was positive, but negative UCx. In an immunosuppressed patient, can consider fungal causes (ie fungal PNA) but he doesnt have a localizing source. Can consider hypovolemia as a reason for his shock but would also pursue further cardiac workup with TTE to look for other sources. I will keep him on empiric abx for now until I see him when telepresenter is available tomorrow. # Shock # Abdominal pain, vomiting # h/o interstitial lung disease # h/o CHF # on mycophenoloate and prednisone - would obtain TTE - if he has any back pain or joint redness/swelling, would pursue further imaging of these sites as well as sites with hardware - will keep him on cefepime and flagy for now - will see patient with telepresenter tomorrow ID will continue to follow. If questions or concerns, contact Infectious Disease Call Center . Isabela Naidu MD [facility], Division of Infectious Diseases [facility]: [phone] Consultation Information This patient recommendation is based on a telemedicine consult request which was completed asynchronously through chart review and information provided by the primary physician. The patient was not seen or examined today. The evaluation is consultative in nature and all patient care and treatment decisions can either be accepted or rejected by the patient's primary hospital-based treating physician using their own independent medical judgment for their patient. Cable Lacer contact information: Please call [facility] Connect Call Center [phone]. (Phone Number For Physician Use Only) Time Spent Reviewing Chart: 31+ minutes History of Present Illness Reason for Consultation: unknown source/septic shock Attending Physician: Guido Mancia History of Present Illness 84yo M with h/o cardiomyopathy, hypothyroidism, T2DM, GERD, CKD III, HTN, HLD, interstitial lung disease on supplemental O2 qhs, on mycophenolate and prednisone 10mg daily, pulmonary HTN, orthostatic hypotension on midodrine, Schatzkis ring, AV sclerosis who presented on 03/02 with acute onset of generali zed abdominal pain and vomiting that started on morning of admission. No associated diarrhea. He had no changes in activity or PO intake prior to this. He denied any fevers, recent illness, cough, congestion, chest pain. He was found to be afebrile, O2 sats 96% on RA and 2L. He was also hypotensive to 50s and started on levophed with admission to the ICU. Initial labs with WBC 20.05>>12.88, hyponatremia, AGMA, Cr 1.68>>1.62, LFT wnl. Troponin elevated. PCT 1.68. UA with 11-20 WBC, 3-5 epith cells. RPP negative. CTAP with IV negative for acute findings, noted diverticulosis. CTA chest negative for PE. KUB with nonobstructive bowel gas pattern. He was started on empiric abx with Vanc, cefepime, an flagyl. Pressors now off and patient has been downgraded. ID consulted 03/04 for assistance. Allergies Allergy/AdvReac Type Severity Reaction Status Date / Time Sulfa (Sulfonamide Allergy Severe RASH, Verified 03/03/24 00:11 Antibiotics) HIVES, SWOLLEN MOUTH, THROAT SWELLING lisinopril Allergy Intermediate lethargic Verified 03/03/24 00:11 Penicillins Allergy Intermediate RASH, HIVES Verified 03/03/24 00:11 Home Medications Medication Instructions Recorded Confirmed Type fluticasone propionate 50 1 spray intranasal BID #18.2 mL 10/23/23 03/03/24 Rx mcg/actuation nasal spray,suspension (Flonase Allergy Relief) escitalopram oxalate 10 mg tablet 10 mg PO QAM 10/31/23 03/03/24 History blood-glucose sensor (FreeStyle #2 ea 11/08/23 03/03/24 Rx Vanessa 3 Sensor device) famotidine 40 mg tablet (Pepcid) 40 mg PO HS #90 tabs 11/14/23 03/03/24 Rx pen needle, diabetic 32 gauge x #100 ea 11/27/23 03/03/24 Rx 5/32" (BD Ultra-Fine Vale Pen Needle) metoprolol succinate 25 mg 25 mg PO QPM #90 tabs 12/11/23 03/03/24 Rx tablet,extended release 24 hr aspirin 81 mg tablet,delayed 81 mg PO DAILY 12/13/23 03/03/24 History release (Adult Aspirin Regimen) finasteride 5 mg tablet (Proscar) 5 mg PO QPM #90 tabs 01/09/24 03/03/24 Rx gabapentin 300 mg capsule 300 mg PO TID #90 caps 01/09/24 03/03/24 Rx prednisone 10 mg tablet 10 mg PO DAILY #30 tabs 01/09/24 03/03/24 Rx insulin degludec 100 unit/mL (3 28 unit subcut QAM 01/16/24 03/03/24 History mL) subcutaneous pen (Tresiba FlexTouch U-100 insulin) insulin lispro 100 unit/mL 6 unit (0.06 mL) subcut QPM #10 mL 01/22/24 03/03/24 Rx subcutaneous pen (Humalog KwikPen (U-100) Insulin) tirzepatide 5 mg/0.5 mL 5 mg (0.5 mL) subcut WK #2 mL 02/04/24 03/03/24 Rx subcutaneous pen injector alprazolam 0.5 mg tablet (Xanax) 0.25 mg (1/2 x 0.5 mg) PO HS #15 02/06/24 03/03/24 Rx tabs midodrine 5 mg tablet 5 mg PO TID #270 tabs 02/06/24 03/03/24 Rx mycophenolate mofetil 250 mg 250 mg PO BID #120 caps 02/08/24 03/03/24 Rx capsule (CellCept) allopurinol 100 mg tablet See Rx Instructions .Route 03/04/24 Rx .COMPLEX #90 tabs levothyroxine 50 mcg tablet See Rx Instructions .Route 03/04/24 Rx .COMPLEX #90 tabs omeprazole 40 mg capsule,delayed See Rx Instructions .Route 03/04/24 Rx release .COMPLEX #30 caps tamsulosin 0.4 mg capsule See Rx Instructions .Route 03/04/24 Rx .COMPLEX #90 caps Patient History Medical History (Updated 03/04/24 @ 07:29 by Michelle Chao MD, [facility]) Orthostatic hypotension Cardiomyopathy LV systolic function has normalized. Etiology of CM unknown. Hypothyroidism Anxiety GERD (gastroesophageal reflux disease) Relatively controlled with medication (improved from previous) Recurrent falls History of osteomyelitis left foot Periprosthetic fracture around internal prosthetic joint Cervical spondylosis Migraine Hx of melanoma of skin RT EAR Low iron Anemia stable per patient Hx of esophageal ulcer Hx of gout Controlled with Allopurinol Hyponatremia Chronic kidney disease, stage III (moderate) BPH (benign prostatic hyperplasia) DMII (diabetes mellitus, type 2) Aortic stenosis Mild AV stenosis on 10/15/20 ECHO "AV opens well" on 05/11/21 ECHO -Per 08/2021 cardio note- noted in 2019 - no significant stenosis on most recent ECHO- known sclerotic AV- "no significant stenosis" Venous insufficiency Interstitial lung disease "HAS NOT USED INHALER FOR A LONG TIME" Breathing stable at rest- mild FONTANEZ with long walks (chronic and unchanged) Accelerated idioventricular rhythm Asymptomatic. Beta-juanjose has been initiated since Holter monitor per cardio records Frequent PVCs FOLLOWED BY DR. 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 S/P dilatation of esophageal stricture H/O foot surgery RT FOOT History of bilateral knee replacement Family History Father Family history of diabetes mellitus Coronary heart disease Prostate cancer Myocardial infarction Uncle Coronary heart disease Sister Breast cancer Other No family history of adverse response to anesthesia Denies family history of Ovarian cancer Colorectal cancer Social History Smoking Status: Never smoker Second Hand Exposure: No; Do You Dip or Chew Tobacco: No; Hx Alcohol Use: No Hx Substance Use: No Preferred Language: Belarusian Communication Ability: Effective Visual Impairment: Limited Hearing Ability: Use of Hearing Aid Sales Outfitter Required: No Beliefs That Will Affect Care: None marital status: / Current Living Situation: Alone current occupational status: retired How many Children do You have: 3 Feels Safe at Home: Yes Safety Concerns: Feels Safe At This Time Childhood Exposure to Second-Hand Smoke: Yes Diet: low carbohydrate and regular caffeine: Yes during the past year weight has: increased > 10 lbs Dental Care, Regularly: Yes Physical Activity Frequency: 1-2 Times per Week Seatbelt Use: always Sunscreen Use: Yes Assistive Devices: Cane, Oxygen - at Night, Walker and Wheelchair Results & Data Vital Signs (Past 12 Hours) Vital Signs Temp Pulse Resp BP Pulse Ox O2 Del Method 03/04/24 11:11 75 17 132/79 97 Room Air 03/04/24 09:21 Room Air 03/04/24 08:39 36.6 C 75 17 150/79 H 94 Room Air 03/04/24 06:00 65 24 147/81 H 91 Laboratory Results Labs reviewed Diagnostic Findings Imaging reviewed (2) Nausea & vomiting Vomiting type: unspecified Qualified Code(s): R11.2 - Nausea with vomiting, unspecified (3) Abdominal pain Abdominal location: lower abdomen, unspecified Qualified Code(s): R10.30 - Lower abdominal pain, unspecified (6) DMII (diabetes mellitus, type 2) Diabetes mellitus jail insulin use: with jail use Diabetes mellitus complication status: with kidney complications Diabetes mellitus complication detail: with chronic kidney disease Chronic kidney disease stage: stage 3 (moderate) Chronic kidney disease stage 3 subtype: stage 3a (GFR 45-59) Qu alified Code(s): E11.22 - Type 2 diabetes mellitus with diabetic chronic kidney disease; N18.31 - Chronic kidney disease, stage 3a; Z79.4 - skilled nursing (current) use of insulin
--- NOTE | 2024-03-04 22:56 | Hospitalist Progress Note ---
Date of Service March 04, 2024 Assessment & Plan (1) Septic shock: (2) Nausea & vomiting: (3) Acute hypotension: (4) Elevated troponin: (5) Cardiomyopathy: (6) GERD (gastroesophageal reflux disease): (7) DMII (diabetes mellitus, type 2): (8) Acute kidney injury superimposed on chronic kidney disease: (9) Aortic stenosis: Plan Septic shock- Admitted to intensive care unit Unclear source at this time, likely that of GI such as diverticulitis versus urinary tract infection/prostatitis Follow all cultures and sensitivities Patient is immunocompromised on mycophenolate and prednisone Empiric linezolid 6 mg IV every 12 hours, and cefepime 2 g IV every 12 hours Status post 1500 mL normal saline Patient clinically better. Vitals have stabilized without the need to be on pressors. Patient is downgraded. COntinue cefepime and flagyl Vanco will be discontinued. will continue to monitor patient. COnsulted ID as unknown what the source was. Also consulted for recommendations on discharge Elevated troponin/aortic stenosis/cardiomyopathy/PVCs/hypertension history- Hypotensive in the emergency department, to a blood pressure of 59/48 Initial troponin 65.3, and will be followed serially Continue Levophed infusion Follow serial laboratories Hold metoprolol succinate Acute kidney injury superimposed on CKD- Creatinine 1.68, with baseline 1.27 Follow serial laboratories and wants to improve with IV fluid resuscitation and improving perfusion with increasing blood pressure BPH with LUTS- Urinary retention of 3 to 6 mL noted in the ED Patient preferring to not have Maier catheter Maier urinalysis and urine culture sensitivity when patient can provide a sample Continue tamsulosin and finasteride Admission and Anticipated Discharge Date Admission Date: March 02, 2024 Subjective PATIENT reports no new symptoms. Patient feels improved and is asking about discharge. Review of Systems Review of Systems: All systems reviewed & are unremarkable except as noted in HPI & below Physical Exam Physical Exam: The patient is awake, alert and oriented 3, lying in bed and in no acute distress. HEENT--PERRL, EOMI, mucous membranes and oropharynx dry. Neck--supple. No JVD. No bruits. Thyroid normal, trachea midline, no adenopathy. Heart--normal S1 and S2. No murmurs, rubs or gallops. Lungs--clear bilaterally, no respiratory distress, no accessory muscle use. Abdomen--normal bowel sounds and soft. Nontender Nondistended, no hernias or masses, no organomegaly. Extremities--no cyanosis or clubbing. No edema. Results & Data Results & Data Vital Signs (Past 12 Hours) Vital Signs Temp Pulse Pulse Resp BP BP Pulse Ox 03/04/24 21:26 72 177/82 H 03/04/24 20:00 03/04/24 19:37 36.6 C 70 20 198/92 H 95 03/04/24 18:15 159/75 H 03/04/24 17:15 36.5 C 84 17 174/102 H 94 03/04/24 16:00 71 03/04/24 11:11 75 17 132/79 97 O2 Del Method 03/04/24 21:26 03/04/24 20:00 Room Air 03/04/24 19:37 Room Air 03/04/24 18:15 03/04/24 17:15 Room Air 03/04/24 16:00 03/04/24 11:11 Room Air PG Care Time/CCT Total # of Minutes Spent Total Time Spent with Patient: Total time spent is greater than 50% in coordination of care (as documented) at patient's floor/unit and/or counseling patient: Coding Level of Care Code 25855 SUB INP/OBS CARE 2/35MIN Diagnoses Septic shock A41.9; R65.21 Nausea & vomiting R11.2 Vomiting type: unspecified Acute hypotension I95.9 Elevated troponin R79.89 Cardiomyopathy I42.9 GERD (gastroesophageal reflux disease) K21.9 Type 2 diabetes mellitus with stage 3a chronic kidney disease, with long-term current use of insulin E11.22; N18.31; Z79.4 Chronic kidney disease stage: stage 3 (moderate) Chronic kidney disease stage 3 subtype: stage 3a (GFR 45-59) Diabetes mellitus complication detail: with chronic kidney disease Diabetes mellitus complication status: with kidney complications Diabetes mellitus detention insulin use: with detention use Acute kidney injury superimposed on chronic kidney disease N17.9; N18.9 Aortic valve stenosis, etiology of cardiac valve disease unspecified I35.0 Cardiac valve disease etiology: etiology unspecified (2) Nausea & vomiting Vomiting type: unspecified Qualified Code(s): R11.2 - Nausea with vomiting, unspecified (7) DMII (diabetes mellitus, type 2) Chronic kidney disease stage: stage 3 (moderate) Chronic kidney disease stage 3 subtype: stage 3a (GFR 45-59) Diabetes mellitus complication detail: with chronic kidney disease Diabetes mellitus complication status: with kidney complications Diabetes mellitus detention insulin use: with detention use Qualified Code(s): E11.22 - Type 2 diabetes mellitus with diabetic chronic kidney disease; N18.31 - Chronic kidney disease, stage 3a; Z79.4 - prison (current) use of insulin (9) Aortic stenosis Cardiac valve disease etiology: etiology unspecified Qualified Code(s): I35.0 - Nonrheumatic aortic (valve) stenosis
[2024-03-05 04:05] LABS: Basophils # (auto) 0.03 K/uL (0.00-0.20); Basophils % (auto) 0.2 %; Eosinophils # (auto) 0.12 K/uL (0.00-0.50); Eosinophils % (auto) 0.9 %; Hematocrit (blood only) 31.8 % (42.0-52.0); Hemoglobin 10.7 g/dl (14.0-18.0); Immature Granulocytes # (auto) 0.08 K/uL (0.01-0.20); Immature Granulocytes % (auto) 0.6 %; Lymphocytes # (auto) 0.94 K/uL (1.20-3.40); Mean Corpuscular Hemoglobin 30.3 pg (25.0-34.0); Mean Corpuscular Hgb Conc 33.6 g/dL (32.0-36.0); Mean Corpuscular Volume 90.1 fL (80.0-100.0); Mean Platelet Volume 10.1 fL (9.4-12.4); Monocytes # (auto) 1.23 K/uL (0.11-0.59); Monocytes % (auto) 9.1 %; Neutrophils # (auto) 11.06 K/uL (1.40-6.50); Neutrophils % (auto) 82.2 %; Platelet Count 271 K/uL (130-400); RDW Coefficient of Variation 13.8 % (11.5-14.5); RDW Standard Deviation 45.1 fL (36.4-46.3); Red Blood Count 3.53 M/uL (4.70-6.10); White Blood Count 13.46 K/ul (4.8-10.8)
[2024-03-05 04:14] LABS: Albumin Globulin Ratio 1.4 (0.9-2); Albumin Level 3.2 gm/dl (3.4-5.0); BUN Creatinine Ratio 16.7 (10-20); Bilirubin,Total 0.3 mg/dl (0.2-1.0); C Reactive Protein 4.45 mg/dl (0-0.5); Calcium 8.5 mg/dl (8.6-10.3); Creatinine Clr Calc Pharmacy 47.8 ml/min; Est GFR (African American) 63.1 ml/min; Est GFR (Non-African American) 54.4 ml/min; Globulin 2.3 gm/dl (2.5-4.0); Magnesium 2.1 mg/dl (1.7-2.4); Potassium 4.1 mmol/L (3.5-5.1); Total Protein 5.5 gm/dl (6.0-8.3)
--- NOTE | 2024-03-05 12:26 | Infectious Disease Progress Nt ---
Date of Service March 05, 2024 Assessment & Plan (1) Acute hypotension: (2) Nausea & vomiting: (3) Abdominal pain: (4) Acute kidney injury: (5) Cardiomyopathy: (6) DMII (diabetes mellitus, type 2): Plan 84yo M with h/o cardiomyopathy, hypothyroidism, T2DM, GERD, CKD III, HTN, HLD, interstitial lung disease on supplemental O2 qhs, on mycophenolate and prednisone 10mg daily, pulmonary HTN, orthostatic hypotension on midodrine, Schatzkis ring, AV sclerosis who presented on 03/02 with acute onset of generalized abdominal pain and vomiting that started on morning of admission. No associated diarrhea. He had no changes in activity or PO intake prior to this. He denied any fevers, recent illness, cough, congestion, chest pain. He was found to be afebrile, O2 sats 96% on RA and 2L. He was also hypotensive to 50s and started on levophed with admission to the ICU. Initial labs with WBC 20.05>>12.88, hyponatremia, AGMA, Cr 1.68>>1.62, LFT wnl. Troponin elevated. PCT 1.68. UA with 11-20 WBC, 3-5 epith cells. RPP negative. CTAP with IV negative for acute findings, noted diverticulosis. CTA chest negative for PE. KUB with nonobstructive bowel gas pattern. He was started on empiric abx with Vanc, cefepime, an flagyl. Pressors now off and patient has been downgraded. ID consulted 03/04 for assistance. He remains afebrile, WBC 13 today. No clear source on examination today. Only positive findings are his abdominal pain and vomiting from admission. Its possible there could have been something he had eaten that couldve lead to his symptoms resulting in hypovolemia. CTAP was unremarkable. He has noted diverticulosis but doesnt have any diverticulitis and also didnt have reported diarrhea. CT chest didnt have any consolidation. His BCx are no growth. UA was positive, but negative UCx. Would pursue further cardiac workup with TTE to look for other sources, this is currently ordered. I am going to de-escalate abx to CTX/flagyl today and if all outstanding testing negative, then stop. # Shock # Abdominal pain, vomiting # YSABEL - improved # h/o CHF # Interstitial lung disease on mycophenolate and prednisone - f/u TTE - Kerrie stopped cefepime and started CTX - continue flagyl - if TTE negative and he remains clinically stable, will favor stopping abx ID will continue to follow. If questions or concerns, contact Infectious Disease Call Center . Isabela Naidu MD [facility], Division of Infectious Diseases [facility]: [phone] Admission and Anticipated Discharge Date Admission Date: March 02, 2024 Subjective Subsequent visit was provided via telemedicine using two-way real-time interactive telecommunication between the patient and the telemedicine provider. For the duration of the visit, the provider was performing the assessment from a different facility than the patient. This includesuse of bluetooth stethoscope forauscultationperformed by the telepresenter that the telemedicine provider can hear if described in the physical exam. Shingle Grader contact information: Please call [facility] Connect Call Center . (Phone Number For Physician Use Only) After establishing a telemedicine visit, patient was: Patient was verified with two unique identifiers, Patient/authorized rep acknowledged consent and understanding and Gave permission to continue telehealth session Time Spent with Patient: Subsequent => 55 min Patient seen today. He says that prior to coming to the hospital had multiple ep isodes of vomiting all day. This has since resolved as has the abdominal pain. He doesn't recall eating anything out of the ordinary prior to symptoms starting. Notes that day he had cereal/banana, fried egg sandwhich and tomato soup. No SOB, no rashes, joint pains, back pain. Does not have any oral sores. No dysuria. He has chronic headaches, but no neck pain. He has bl knee replacements and shoulder, but no issues at these sites. He is retired but previously worked at [employer] and [employer]. 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 Has a puppy. No outdoors activities. Physical Exam Physical Exam: General: Awake, alert, no acute distress HEENT: NC/AT, EOMI, mmm Neck: supple, no LAD Lungs: respirations non-labored Heart: nl peripheral perfusion Abdomen: soft, NT/ND Back: no spinal tenderness, no joint swelling/redness Ext: 1+ bl LE edema Skin: no rash Neuro: O x 3 Results & Data Vital Signs (Past 12 Hours) Vital Signs Temp Pulse Pulse Resp BP Pulse Ox O2 Del Method 03/05/24 11:58 36.4 C L 74 19 150/83 H 96 Room Air 03/05/24 07:44 79 03/05/24 07:41 36.6 C 68 17 146/86 H 95 Room Air 03/05/24 02:52 37 C 76 22 130/77 96 Nasal Cannula 03/05/24 01:00 O2 Del Method O2 Flow Rate O2 Flow Rate 03/05/24 11:58 03/05/24 07:44 03/05/24 07:41 03/05/24 02:52 2 03/05/24 01:00 Nasal Cannula 2 Laboratory Results Labs reviewed Diagnostic Findings Imaging reviewed (2) Nausea & vomiting Vomiting type: unspecified Qualified Code(s): R11.2 - Nausea with vomiting, unspecified (3) Abdominal pain Abdominal location: lower abdomen, unspecified Qualified Code(s): R10.30 - Lower abdominal pain, unspecified (6) DMII (diabetes mellitus, type 2) Diabetes mellitus skilled nursing insulin use: with adjunct faculty for medical terminology use Diabetes mellitus complication status: with kidney complications Diabetes mellitus complication detail: with chronic kidney disease Chronic kidney disease stage: stage 3 (moderate) Chronic kidney disease stage 3 subtype: stage 3a (GFR 45-59) Qualified Code(s): E11.22 - Type 2 diabetes mellitus with diabetic chronic kidney disease; N18.31 - Chronic kidney disease, stage 3a; Z79.4 - shelter (current) use of insulin
--- NOTE | 2024-03-05 15:55 | XCELERA ---
[id number]
--- NOTE | 2024-03-05 16:14 | Discharge Summary ---
Date of Service March 05, 2024 Admission HPI Per Admitting Provider The patient is a 84-year-old male with a past medical history including cardiomyopathy, anxiety, GERD, hypothyroidism, CKD, diabetes mellitus type 2, hyperlipidemia, interstitial lung disease, pulm hypertension, Schatzki's ring, hypertension, aortic valve sclerosis, occipital and cervical neuralgia. Patient presented to the emergency department with symptoms as noted above. He was noted to be hypotensive, with lowest recorded blood pressure 59/48, and was given normal saline total 1500 mill bolus, cefepime 2 g IV, linezolid 600 mg IV, and started on Levophed continuous infusion. Patient was admitted to the ICU for ongoing treatment Discharge Data Allergies Allergy/AdvReac Type Severity Reaction Status Date / Time Sulfa (Sulfonamide Allergy Severe RASH, Verified 03/03/24 00:11 Antibiotics) HIVES, SWOLLEN MOUTH, THROAT SWELLING lisinopril Allergy Intermediate lethargic Verified 03/03/24 00:11 Penicillins Allergy Intermediate RASH, HIVES Verified 03/03/24 00:11 Consultations 03/02/24 23:11 ED Decision to Admit Stat 03/03/24 01:09 Consult Fire Extinguisher Inspector Routine 03/04/24 14:24 Consult Infectious Diseases Routine Ordered Studies 03/02/24 21:58 CT abd pelvis IV con only Stat CT angio chest PE protocol Stat Hospital Course (1) Septic shock: (2) Nausea & vomiting: (3) Acute hypotension: (4) Elevated troponin: (5) Cardiomyopathy: (6) GERD (gastroesophageal reflux disease): (7) DMII (diabetes mellitus, type 2): (8) Acute kidney injury superimposed on chronic kidney disease: (9) Aortic stenosis: Plan Septic shock- Admitted to intensive care unit Unclear source at this time, likely that of GI such as diverticulitis versus urinary tract infection/prostatitis Follow all cultures and sensitivities Patient is immunocompromised on mycophenolate and prednisone Empiric linezolid 6 mg IV every 12 hours, and cefepime 2 g IV every 12 hours Status post 1500 mL normal saline Patient clinically better. Vitals have stabilized without the need to be on pressors. Patient is downgraded. COntinue cefepime and flagyl Vanco will be discontinued. will continue to monitor patient. COnsulted ID as unknown what the source was. Also consulted for recommendations on discharge Elevated troponin/aortic stenosis/cardiomyopathy/PVCs/hypertension history- Hypotensive in the emergency department, to a blood pressure of 59/48 Initial troponin 65.3, and will be followed serially Continue Levophed infusion Follow serial laboratories Hold metoprolol succinate Acute kidney injury superimposed on CKD- Creatinine 1.68, with baseline 1.27 Follow serial laboratories and wants to improve with IV fluid resuscitation and improving perfusion with increasing blood pressure BPH with LUTS- Urinary retention of 3 to 6 mL noted in the ED Patient preferring to not have Maier catheter Maier urinalysis and urine culture sensitivity when patient can provide a sample Continue tamsulosin and finasteride Discharge Plan Discharge Items Patient Disposition: Home - Self-Care Reason For Visit: SEPSIS, HYPOTENSION Discharge Diagnosis: low blood pressure Activity: Resume your previous activity Non-emergency contact: Primary Care Provider Call non-emergency contact if: you have any medication questions Follow-up/Referrals: Sallie Mckeon MD [Primary Care Provider] - Diet: Carb Consistent or DM2 and Heart Healthy Addtl Attending Provider Instructions: recommend followup with your PCP in 1-2 weeks Please continue antibiotics for 3 more days, first dose tonight. Pending Studies at Discharge: No Stand-Alone Forms: My [facility] [employer] for Google Glass, Smoking Cessation Medications and DC Order Prescriptions: New cefdinir 300 mg capsule 300 mg PO BID Qty: 6 0RF metronidazole 500 mg tablet 500 mg PO Q8H Qty: 9 0RF Continued (DME) FreeStyle Vanessa 3 Sensor Device See Rx Instructions .Route Qty: 2 3RF Rx Instructions: Check glucose readings three times per day famotidine [Pepcid] 40 mg tablet 40 mg PO HS Qty: 90 1RF (DME) pen needle, diabetic [BD Ultra-Fine Vale Pen Needle] 32 gauge x 5/32" needle See Rx Instructions .Route Qty: 100 1RF Rx Instructions: USE TO TEST 2-3 TIMES DAILY OR DIRECTED metoprolol succinate 25 mg tablet extended release 24 hr 25 mg PO QPM Qty: 90 1RF prednisone 10 mg tablet 10 mg PO DAILY Qty: 30 2RF Rx Instructions: for interstitial lung disease gabapentin 300 mg capsule 300 mg PO TID Qty: 90 2RF finasteride [Proscar] 5 mg tablet 5 mg PO QPM Qty: 90 3RF insulin lispro [Humalog KwikPen Insulin] 100 unit/mL insulin pen 6 unit subcut QPM Qty: 10 5RF midodrine 5 mg tablet 5 mg PO TID Qty: 270 3RF Rx Instructions: do not give last dose of day after 6PM or within 4 hrs of bedtime alprazolam [Xanax] 0.5 mg tablet 0.25 mg PO HS Qty: 15 1RF tamsulosin 0.4 mg capsule See Rx Instructions .ROUTE .COMPLEX Qty: 90 3RF Dose Instruction: TAKE ONE CAPSULE BY MOUTH IN THE EVENING Rx Instructions: TAKE ONE CAPSULE BY MOUTH IN THE EVENING omeprazole 40 mg capsule,delayed release(DR/EC) See Rx Instructions .ROUTE .COMPLEX Qty: 30 11RF Dose Instruction: TAKE 1 CAPSULE BY MOUTH ONCE DAILY IN THE MORNING Rx Instructions: TAKE 1 CAPSULE BY MOUTH ONCE DAILY IN THE MORNING allopurinol 100 mg tablet See Rx Instructions .ROUTE .COMPLEX Qty: 90 1RF Dose Instruction: TAKE 1 TABLET BY MOUTH ONCE DAILY IN THE MORNING Rx Instructions: TAKE 1 TABLET BY MOUTH ONCE DAILY IN THE MORNING levothyroxine 50 mcg tablet See Rx Instructions .ROUTE .COMPLEX Qty: 90 1RF Dose Instruction: TAKE 1 TABLET BY MOUTH ONCE DAILY IN THE MORNING Rx Instructions: TAKE 1 TABLET BY MOUTH ONCE DAILY IN THE MORNING escitalopram oxalate 10 mg tablet 10 mg PO QAM Qty: 90 1RF Rx Instructions: TAKE 1 TABLET BY MOUTH ONCE DAILY IN THE MORNING insulin degludec [Tresiba FlexTouch U-100] 100 unit/mL (3 mL) insulin pen 28 unit subcut QAM fluticasone propionate [Flonase Allergy Relief] 50 mcg/actuation spray,suspension 1 spray intranasal BID Qty: 18.2 2RF Rx Instructions: administer into each nostril mycophenolate mofetil [CellCept] 250 mg capsule 250 mg PO BID Qty: 120 2RF aspirin [Adult Aspirin Regimen] 81 mg tablet,delayed release (DR/EC) 81 mg PO DAILY Rx Instructions: Has not syl taking tirzepatide 5 mg/0.5 mL pen injector 5 mg subcut WK Qty: 2 1RF Rx Instructions: Take 5mg once weekly, sunday Discharge Orders: Discharge Order (Routine); Ordered 03/05/24 Ordered By: Guido Mancia Admission Data Admit Date/Time: 03/02/24 23:48 Attending Provider: Saborio,Guido A Admit Provider: David Yo Primary Care Provider: Sallie Mckeon Other Providers: David Yo; Zheng Mota; Sada Ulrich; Pamela Levin; Erica Casas; Isabeal Naidu; Samosn Mackay; Grecia Hayes; Jenise Godwin; [facility] Coding Diagnoses Septic shock A41.9; R65.21 Nausea & vomiting R11.2 Vomiting type: unspecified Acute hypotension I95.9 Elevated troponin R79.89 Cardiomyopathy I42.9 GERD (gastroesophageal reflux disease) K21.9 Type 2 diabetes mellitus with stage 3a chronic kidney disease, with long-term current use of insulin E11.22; N18.31; Z79.4 Diabetes mellitus computer terminal operator insulin use: with computer terminal operator use Diabetes mellitus complication status: with kidney complications Diabetes mellitus complication detail: with chronic kidney disease Chronic kidney disease stage: stage 3 (moderate) Chronic kidney disease stage 3 subtype: stage 3a (GFR 45-59) Acute kidney injury superimposed on chronic kidney disease N17.9; N18.9 Aortic valve stenosis, etiology of cardiac valve disease unspecified I35.0 Cardiac valve disease etiology: etiology unspecified
[2024-03-05] MEDS ORDERED: metroNIDAZOLE 500 MG TAB PO SCH ×2 (21:00)
[2024-03-05] MEDS ORDERED: CEFDINIR 300 MG CAP PO SCH ×2 (21:00)
[2024-03-05] MEDS ORDERED: cefTRIAXone SODIUM 2,000 MG in DEXTROSE 5 % MINI-B 50 ML IV SCH (22:00)
== END 2024-03-05 18:54 | disposition home or self-care (01) | DRG 871 ==
LOC: ED 21:26 → 1E 23:48 → SUATTDRO 23:48 → 1E 03-03 01:05 → 4W 03-04 18:50

== ENCOUNTER 2025-01-05 04:47 | Inpatient (IN) ==
--- NOTE | 2025-01-05 05:25 | Emergency Department Note ---
Impression & Plan Chest pain ED Provider Note ED Provider Note NAME: ERICH GALO AGE:84 SEX: Male : 1940 ARRIVES VIA: EMS INFORMANT: Patient ED PROVIDER(s): Darline Christensen DO CHIEF COMPLAINT: Chest pain HPI: This is an 84-year-old male presents to the emergency department via EMS due to concern for chest pain which woke him up from sleep. He states it is on the left side of his chest and left back and into the left neck. He denies any prior similar episodes. Patient states he felt well before going to bed tonight. No recent change in activity or falls. No recent change in medications. Patient does have a history of interstitial lung disease and follows with pulmonology, Dr. Mares. He is on chronic prednisone. He states he has not noticed any change in his breathing. He does note that he gets winded with any exertion but does not feel that is significantly worse. He denies fevers, chills, recent URI symptoms. He denies any known sick contacts. He denies any abdominal pain, dizziness, nausea or vomiting. Patient given for low-dose aspirin by EMS en route. Patient states he is not on any improvement. He did not take anything else at home prior to arrival. PAST MEDICAL HISTORY:See Below PAST SURGICAL HISTORY:See Below FAMILY HISTORY:See Below SOCIAL HISTORY:See Below HOME MEDICATIONS:See Below ALLERGIES:See Below VITALS:See Below PHYSICAL EXAMINATION: GENERAL: alert, well appearing, well nourished, no distress, non-toxic EYE EXAM: normal conjunctiva, PERRL and EOM's grossly intact OROPHARYNX: no exudate, no erythema, lips, buccal mucosa, and tongue normal and mucous membranes are moist NECK: supple, no nuchal rigidity, no adenopathy, non-tender LUNGS: Clear to auscultation. Normal chest wall mechanics, no w/r/r HEART: no murmurs, S1 normal and S2 normal, no reproducible pain with palpation ABDOMEN: abdomen soft, non-tender, normo-active bowel sounds, no masses, no rebound or guarding. BACK: Back is symmetrical on inspection and there is no deformity, no midline tenderness, no CVA tenderness. SKIN: no rashes, petechiae, orbruising UPPER EXTREMITIES: upper extremities are grossly normal. FROM, nml pulses b/l. LOWER EXTREMITIES: No pitting edema. FROM, nml pulses b/l. NEURO EXAM: Normal sensorium, cranial nerves II-XII grossly intact, normal speech, no facial droop,nogross weakness of arms, no gross weakness of legs. Gross sensation intact. No ataxia. Vital Signs: reviewed and remarkable Differential Diagnosis: acute coronary syndrome, pericarditis, pulmonary embolus, aortic dissection, pneumonia, pneumothorax, musculoskeletal pain, shingles, GERD, GI bleed, as well as others were considered MEDICAL DECISION MAKING: This is an 84-year-old male presents to the emergency department via EMS due to concern for left-sided chest and left back pain. He was afebrile and hemodynamically stable. Labs drawn and sent, IV established, EKG and chest x- ray performed at bedside and interpreted by me and patient monitored on telemetry. Patient noted to have an elevated troponin and an elevated D-dimer. He was sent for CT of the chest additionally. EKG did not reveal any acute changes. Patient noted to have a leukocytosis. This does appear slightly higher compared to prior levels despite chronic prednisone use. Mild anemia also noted, not significantly worse compared to prior. Patient also noted to have hyponatremia although this appears stable compared to prior. Patient given IV Tylenol and IV famotidine for pain with mild improvement but not resolution. We discussed all results at bedside. Case discussed with the hospitalist team for additional evaluation and management. Consultation(s): 0600: Case discussed with Dr. Yo, [facility] hospitalist team, for additional evaluation and management. ER Treatment Provided: See below Diagnostics Interpreted By Me: -ECG: Normal sinus at 85, leftward axis, right bundle branch block, nonspecific ST/T wave changes -Cardiac Monitoring: An order was placed for continuous cardiac monitoring. The monitor shows a rate of 90 with normal sinus rhythm. -Laboratory studies: As stated above and show below. -Imaging studies: cxr: Mild cardiomegaly, no wide mediastinum, chronic appearing patchy changes noted, no pleural effusions, no acute pulmonary edema, no focal consolidation Triage Nursing Note Reviewed Prior/Outside Records Reviewed - pulmonology office visit from December 2024 reviewed Past Med/Surg History Problem List (Updated 01/05/25 @ 06:42 by David Yo MD) Elevated d-dimer Chest pain (Acute) Productive cough Hypoxemia Chronic anemia Nocturnal hypoxia Acute kidney injury superimposed on chronic kidney disease Septic shock Nausea & vomiting (Acute) Acute hypotension (Acute) Elevated troponin (Acute) Abdominal pain (Acute) Acute kidney injury Orthostatic hypotension Cardiomyopathy LV systolic function has normalized. Etiology of CM unknown. Anxiety GERD (gastroesophageal reflux disease) Relatively controlled with medication (improved from previous) Hypothyroidism Concussion (Acute) CKD (chronic kidney disease) DMII (diabetes mellitus, type 2) Hyperlipidemia Hyponatremia Interstitial lung disease (Acute) "HAS NOT USED INHALER FOR A LONG TIME" Breathing stable at rest- mild FONTANEZ with long walks (chronic and unchanged) Accelerated idioventricular rhythm Asymptomatic. Beta-juanjose has been initiated since Holter monitor per cardio records Pulmonary hypertension PVCs (premature ventricular contractions) Mitral regurgitation Schatzki's ring No dysphagia Edema (Acute) Hypertension Aortic stenosis Mild AV stenosis on 10/15/20 ECHO "AV opens well" on 05/11/21 ECHO -Per 08/2021 cardio note- noted in 2019 - no significant stenosis on most recent ECHO- known sclerotic AV- "no significant stenosis" RBBB Pulmonary edema (Acute) Aortic valve sclerosis Occipital neuralgia Cervicalgia Medical History Recurrent falls History of osteomyelitis left foot Periprosthetic fracture around internal prosthetic joint Cervical spondylosis Migraine Hx of melanoma of skin RT EAR Low iron Anemia stable per patient Hx of esophageal ulcer Hx of gout Controlled with Allopurinol Chronic kidney disease, stage III (moderate) BPH (benign prostatic hyperplasia) Venous insufficiency Frequent PVCs FOLLOWED BY DR. 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 [facility] [place] of [place]oscopy History of esophagogastroduodenoscopy (EGD) with dilation History of wisdom tooth extraction History of tonsillectomy and adenoidectomy History of cardiac cath no stents>YEARS AGO AT [facility] S/P dilatation of esophageal stricture H/O foot surgery RT FOOT History of bilateral knee replacement Family History Father Family history of diabetes mellitus Coronary heart disease Prostate cancer Myocardial infarction Uncle Coronary heart disease Sister Breast cancer Other No family history of adverse response to anesthesia Denies family history of Ovarian cancer Colorectal cancer Social History Smoking Status: Never smoker Second Hand Exposure: No; Do You Dip or Chew Tobacco: No; Hx Alcohol Use: No Hx Substance Use: No Preferred Language: Haitian Communication Ability: Effective Visual Impairment: Limited Hearing Ability: Use of Hearing Aid Business Leader Required: No Beliefs That Will Affect Care: None marital status: / Current Living Situation: Alone current occupational status: retired How many Children do You have: 3 Feels Safe at Home: Yes Safety Concerns: Feels Safe At This Time Childhood Exposure to Second-Hand Smoke: Yes Diet: low carbohydrate and regular caffeine: Yes during the past year weight has: increased > 10 lbs Dental Care, Regularly: Yes Physical Activity Frequency: 1-2 Times per Week Seatbelt Use: always Sunscreen Use: Yes Assistive Devices: Glasses and Walker Allergies Allergies Allergy/AdvReac Type Severity Reaction Status Date / Time Sulfa (Sulfonamide Allergy Severe RASH, Verified 11/10/24 10:39 Antibiotics) HIVES, SWOLLEN MOUTH, THROAT SWELLING lisinopril Allergy Intermediate lethargic Verified 11/10/24 10:39 Penicillins Allergy Intermediate RASH, HIVES Verified 11/10/24 10:39 Home Meds Home Medications Medication Instructions Recorded Confirmed furosemide 20 mg tablet 20 mg PO Q OTHER DAY edema 11/10/24 01/05/25 allopurinol 100 mg tablet 100 mg PO QAM 01/05/25 01/05/25 aspirin 81 mg tablet,delayed 81 mg PO BID 01/05/25 01/05/25 release guaifenesin 1,200 mg tablet, 1,200 mg PO QAM 01/05/25 01/05/25 extended release 12 hr (Mucinex) levothyroxine 50 mcg tablet 50 mcg PO QAM 01/05/25 01/05/25 midodrine 5 mg tablet 5 mg PO TID 01/05/25 01/05/25 multivitamin 1 tab PO QAM 01/05/25 01/05/25 omeprazole 40 mg capsule,delayed 40 mg PO QAM 01/05/25 01/05/25 release tamsulosin 0.4 mg capsule 0.4 mg PO QPM 01/05/25 01/05/25 Previous Rx's Medication Instructions Recorded finasteride 5 mg tablet (Proscar) 5 mg PO QPM #90 tabs 01/09/24 pen needle, diabetic 32 gauge x #100 ea 03/13/24" (BD Ultra-Fine Vale Pen Needle) mycophenolate mofetil 250 mg 250 mg PO BID #120 caps 07/31/24 capsule (CellCept) escitalopram oxalate 10 mg tablet 10 mg PO QAM #90 tabs 08/21/24 blood-glucose sensor (FreeStyle #2 ea 08/27/24 Vanessa 3 Plus Sensor device) gabapentin 300 mg capsule 300 mg PO TID #90 caps 09/18/24 Oxygen Home #1 ea 09/29/24 famotidine 40 mg tablet (Pepcid) 40 mg PO HS #90 tabs 10/14/24 metoprolol succinate 25 mg 25 mg PO QPM #90 tabs 11/11/24 tablet,extended release 24 hr alprazolam 0.5 mg tablet (Xanax) 0.25 mg (1/2 x 0.5 mg) PO HS #15 12/10/24 tabs prednisone 10 mg tablet 10 mg PO DAILY #30 tabs 12/10/24 tirzepatide 7.5 mg/0.5 mL 7.5 mg (0.5 mL) subcut WK #2 mL 12/25/24 subcutaneous pen injector Results & Data (ED) Vital Signs Vital Signs - 24 hr 01/05/25 04:51 01/05/25 05:33 01/05/25 05:53 Temperature 36.5 C Temperature Source Oral Pulse Rate 88 73 Pulse Rate [Right] 73 Respiratory Rate 16 16 Respiratory Effort / Characteristics Non-Labored Spontaneous Non-Labored Spontaneous Respiratory Depth Normal Normal Blood Pressure 167/96 H Blood Pressure [Right Arm] 136/89 Blood Pressure Mean 119 Blood Pressure Mean [Right Arm] 104 Blood Pressure Position Lying Blood Pressure Position [Right Arm] Lying Pulse Oximetry 92 97 Oxygen Delivery Method Room Air Room Air Sepsis Recent Fever Within 48 Hours No Sepsis New/Unexplained Change in Mental Status N/A Sepsis Action Taken by Nursing No Action Required Laboratory Data 01/05/25 04:56 01/05/25 04:56 Lab Results 01/05/25 Range/Units 04:56 WBC 18.22 H (4.8-10.8) K/ul RBC 4.18 L (4.70-6.10) M/uL Hgb 12.6 L (14.0-18.0) g/dl Hct 37.7 L (42.0-52.0) % MCV 90.2 (80.0-100.0) fL MCH 30.1 (25.0-34.0) pg MCHC 33.4 (32.0-36.0) g/dL RDW Std Deviation 44.5 (36.4-46.3) fL RDW Coeff of Graham 13.6 (11.5-14.5) % Plt Count 268 (130-400) K/uL MPV 10.4 (9.4-12.4) fL Immature Gran % (Auto) 2.7 % Neut % (Auto) 82.3 % Lymph % (Auto) 7.0 % Norton % (Auto) 6.8 % Eos % (Auto) 1.0 % Baso % (Auto) 0.2 % Neut # (Auto) 14.99 H (1.40-6.50) K/uL Lymph # (Auto) 1.27 (1.20-3.40) K/uL Norton # (Auto) 1.24 H (0.11-0.59) K/uL Eos # (Auto) 0.19 (0.00-0.50) K/uL Baso # (Auto) 0.03 (0.00-0.20) K/uL Immature Gran # (Auto) 0.50 H (0.01-0.20) K/uL PT 10.2 (9.0-12.0) Seconds INR 0.9 (0.9-1.1) D-Dimer 1320 H* (0-500) ug/L FEU Sodium 130 L (136-145) mmol/L Potassium 4.0 (3.5-5.1) mmol/L Chloride 95 L (98-107) mmol/L Carbon Dioxide 29 (21-32) mmol/L Anion Gap 6 (3-11) BUN 33 H (6-23) mg/dl Creatinine 1.12 (0.6-1.4) mg/dl Est Cr Clr Drug Dosing 50.1 ml/min eGFR 63.98 BUN/Creatinine Ratio 29.5 H (10-20) Glucose 132 H (70-99(Fasting)) mg/dl Calcium 9.1 (8.6-10.3) mg/dl Magnesium 2.0 (1.7-2.4) mg/dl Total Bilirubin 0.4 (0.2-1.0) mg/dl AST 16 (13-39) U/L ALT 18 (7-52) U/L Alkaline Phosphatase 55 (34-104) U/L Troponin I High Sens 39.0 H (0-20) pg/ml Total Protein 6.0 (6.0-8.3) gm/dl Albumin 3.7 (3.4-5.0) gm/dl Globulin 2.3 L (2.5-4.0) gm/dl Albumin/Globulin Ratio 1.6 (0.9-2) Lipase 44 (11-82) U/L TSH 1.545 (0.300-4.500) uIu/ml Administered Medications Acetaminophen (Acetaminophen 500 Mg Tab) 1,000 mg PO TID [facility] Stop: 02/04/25 13:59 Last Admin: 01/05/25 20:36 Dose: 1,000 mg Documented By: Admin: 01/05/25 14:47 Dose: 1,000 mg Documented By: KWASI Allopurinol (Allopurinol 100 Mg Tab) 100 mg PO DAILY [facility] Stop: 02/04/25 08:59 Last Admin: 01/05/25 09:12 Dose: 100 mg Documented By: BRUNILDA Alprazolam (Alprazolam 0.25 Mg Tablet) 0.25 mg PO [facility] Stop: 02/04/25 20:59 Last Admin: 01/05/25 20:29 Dose: 0.25 mg Documented By: RUTH Aspirin (Aspirin 81 Mg Ectab) 81 mg PO DAILY JUAN A Stop: 02/04/25 08:59 Last Admin: 01/05/25 09:12 Dose: 81 mg Documented By: BRUNILDA Escitalopram Oxalate (Escitalopram Oxalate 10 Mg Tab) 10 mg PO [facility] JU[facility] A Stop: 02/04/25 08:59 Last Admin: 01/05/25 09:13 Dose: 10 mg Documented By: BRUNILDA Famotidine (Famotidine 40 Mg Tablet) 40 mg PO [facility] Stop: 02/04/25 20:59 Last Admin: 01/05/25 20:29 Dose: 40 mg Documented By: RUTH Finasteride (Finasteride 5 Mg Tab) 5 mg PO QPM JUAN A Stop: 02/04/25 20:59 Last Admin: 01/05/25 20:30 Dose: 5 mg Documented By: RUTH Gabapentin (Gabapentin 300 Mg Cap) 300 mg PO TID JUAN A Stop: 02/04/25 08:59 Last Admin: 01/05/25 20:30 Dose: 300 mg Documented By: Admin: 01/05/25 14:47 Dose: 300 mg Documented By: Admin: 01/05/25 09:13 Dose: 300 mg Documented By: BRUNILDA Levothyroxine Sodium (Levothyroxine Sodium 50 Mcg Tablet) 50 mcg PO DAILYBB [facility] Stop: 02/04/25 06:42 Last Admin: 01/05/25 09:12 Dose: 50 mcg Documented By: BRUNILDA Metoprolol Succinate (Metoprolol Succ 25mg Ext Rel Tab) 25 mg PO QPM JUAN A Stop: 02/04/25 20:59 Last Admin: 01/05/25 20:31 Dose: Not Given Documented By: RUTH Midodrine (Midodrine Hcl 2.5 Mg Tab) 5 mg PO DAILY JUAN A Stop: 02/04/25 08:59 Last Admin: 01/05/25 09:13 Dose: 5 mg Documented By: BRUNILDA Miscellaneous (Remove Lidoderm Patch) 1 each N/A DAILY@2100 [facility] Stop: 02/04/25 20:59 Last Admin: 01/05/25 20:31 Dose: 1 each Documented By: RUTH Mycophenolate Mofetil (Mycophenolate Mofetil 250 Mg Cap) 250 mg PO BID JUAN A Stop: 02/04/25 08:59 Last Admin: 01/05/25 20:31 Dose: 250 mg Documented By: Admin: 01/05/25 09:13 Dose: 250 mg Documented By: BRUNILDA Oxycodone HCl (Oxycodone Hcl Ir 5 Mg Tab (Immediate Release)) 10 mg PO Q6H PRN PRN Reason: Moderate Pain 4-6/10 Stop: 01/19/25 08:28 Last Admin: 01/05/25 12:01 Dose: 10 mg Documented By: RBUNILDA Pantoprazole Sodium (Pantoprazole 40 Mg Tab) 40 mg PO DAILY JUAN A Stop: 02/04/25 08:59 Last Admin: 01/05/25 09:13 Dose: 40 mg Documented By: BRUNILDA Tamsulosin HCl (Tamsulosin Hcl 0.4 Mg Cap) 0.4 mg PO HS JUAN A Stop: 02/04/25 20:59 Last Admin: 01/05/25 21:22 Dose: 0.4 mg Documented By: RUTH Discontinued Medications Acetaminophen (Ofirmev) 1,000 mg in 100 mls @ 400 mls/hr IV NOW STA Stop: 01/05/25 05:33 Last Infusion: 01/05/25 06:08 Dose: Infused Documented By: Admin: 01/05/25 05:43 Dose: 400 mls/hr Documented By: BLAINE Famotidine (Pepcid 20mg Iv Push) 20 mg in 5 mls @ 2.5 mls/min IV NOW STA Stop: 01/05/25 05:20 Last Admin: 01/05/25 05:42 Dose: 2.5 mls/min Documented By: BLAINE Ioversol (Optiray 320 125ml) 125 ml IV ONCE ONE Stop: 01/05/25 06:21 Last Admin: 01/05/25 06:20 Dose: 118 ml Documented By: WILLIAM Lidocaine (Lidocaine 5% 1 Patch) 1 patch TD NOW STA Stop: 01/05/25 12:59 Last Admin: 01/05/25 13:15 Dose: 1 patch Documented By: BRUNILDA Morphine Sulfate (Morphine Sulfate 2 Mg/Ml Carp) 2 mg IV Q4 PRN PRN Reason: Severe Pain (Scale 7, 8, 9,10) Stop: 01/19/25 08:28 Last Admin: 01/05/25 09:08 Dose: 2 mg Documented By: BRUNILDA Morphine Sulfate (Morphine Sulfate 2 Mg/Ml Carp) 2 mg IV NOW STA Stop: 01/05/25 12:59 Last Admin: 01/05/25 13:14 Dose: 2 mg Documented By: BRUNILDA Discharge Plan Visit Data Chief Complaint: Chest Pain Stated Complaint: CHEST PAIN ED Provider: Darline Christensen Discharge Problem: Chest pain Patient Disposition: Admitted As Inpatient Discharge Instructions Interventions: ED Discharge Assessment Last Done: 01/05/25 06:48
[2025-01-05 05:26] LABS: Basophils # (auto) 0.03 K/uL (0.00-0.20); Basophils % (auto) 0.2 %; Eosinophils # (auto) 0.19 K/uL (0.00-0.50); Hematocrit (blood only) 37.7 % (42.0-52.0); Hemoglobin 12.6 g/dl (14.0-18.0); Immature Granulocytes % (auto) 2.7 %; Lymphocytes # (auto) 1.27 K/uL (1.20-3.40); Mean Corpuscular Hemoglobin 30.1 pg (25.0-34.0); Mean Corpuscular Hgb Conc 33.4 g/dL (32.0-36.0); Mean Corpuscular Volume 90.2 fL (80.0-100.0); Mean Platelet Volume 10.4 fL (9.4-12.4); Monocytes # (auto) 1.24 K/uL (0.11-0.59); Monocytes % (auto) 6.8 %; Neutrophils # (auto) 14.99 K/uL (1.40-6.50); Neutrophils % (auto) 82.3 %; Platelet Count 268 K/uL (130-400); RDW Coefficient of Variation 13.6 % (11.5-14.5); RDW Standard Deviation 44.5 fL (36.4-46.3); Red Blood Count 4.18 M/uL (4.70-6.10); White Blood Count 18.22 K/ul (4.8-10.8)
[2025-01-05 05:40] LABS: Albumin Globulin Ratio 1.6 (0.9-2); Albumin Level 3.7 gm/dl (3.4-5.0); BUN Creatinine Ratio 29.5 (10-20); Bilirubin,Total 0.4 mg/dl (0.2-1.0); Calcium 9.1 mg/dl (8.6-10.3); Creatinine Clr Calc Pharmacy 50.1 ml/min; Globulin 2.3 gm/dl (2.5-4.0)
[2025-01-05] MEDS: FAMOTIDINE 20MG IV PUSH 20 MG/5 ML SYR IV STA (05:42)
[2025-01-05] MEDS: ACETAMINOPHEN 1,000 MG/100 ML VIAL IV STA (05:43)
[2025-01-05 05:51] LABS: INR 0.9 (0.9-1.1); Prothrombin Time 10.2 Seconds (9.0-12.0)
[2025-01-05 05:55] LABS: Thyroid Stimulating Hormone 1.545 uIu/ml (0.300-4.500)
[2025-01-05 05:56] LABS: D Dimer 1320 ug/L FEU (0-500)
[2025-01-05] MEDS: OPTIRAY 320 125ml IV ONE (06:20)
--- NOTE | 2025-01-05 06:26 | History & Physical Report ---
Date of Service January 05, 2025 Assessment & Plan (1) Interstitial lung disease: (2) Chest pain: (3) Elevated d-dimer: (4) Elevated troponin: (5) Hypoxemia: Plan The patient is a 84-year-old male with past medical history including interstitial lung disease, nocturnal hypoxia, exertional hypoxia requiring 3 L nasal cannula, history of YSABEL superimposed on CKD, elevated troponin, orthostatic hypotension, cardiomyopathy, anxiety, GERD, hypothyroidism, diabetes mellitus type 2, hyperlipidemia, history of accelerated idioventricular rhythm, pulm hypertension, PVCs, Schatzki's ring, aortic stenosis, occipital neuralgia, and cervicalgia.The patient presents to the emergency department with concern regarding left parasternal chest pain that he reports woke him up from sleep earlier this evening. He reports that the pain does seem to run along underneath one of his ribs on the left side, but does occasionally extend to the left side of his back as well. He denies any recent travels, sick exposures, he does have issues with occasionally significant paroxysmal cough associated with underlying interstitial lung disease, for which she follows with Dr. Mares from pulmonology. He was recently on a 5-day prednisone tapering course, and is back to his baseline prednisone dosing at this time. He has chronic dyspnea on exertion, forts he does use 3 L nasal cannula oxygen as needed. He reports no recent change in this requirement. Patient was noted to have an elevated D- dimer of 1320 at the time of admission, with CTA chest PE protocol pending. Troponin elevated at 39.0, follow-up pending. Respiratory BioFire testing pending at the time of admission. #Chronic respiratory failure with hypoxia/interstitial lung disease/pulmonary hypertension- Patient was just placed on a tapering course of prednisone during last pulmonary visit from 12/24/2024, without significant change He presents to the emergency department today with left parasternal chest discomfort, which appears to follow rib cage outline, and may be secondary to nerve irritation from significant coughing he experiences. He has had Tessalon Perles in the past that significant relief, did discuss the possibility of Lidoderm patch for pain control. Additional cough suppression with Mucinex DM is an option that he will discuss with Dr. Mares Consult his research associate quality control qc Dr. Mares, to determine if a course of IV Solu-Medrol is an option as well, it is presently 6:30 AM, and will hold off on any interv entions since he will likely be here in a few hours to address issues Pending tests at the time of admission: CT angiography PE protocol, venous Doppler bilateral lower extremity, respiratory BioFire panel Will continue usual dosing of mycophenolate and 250 mg p.o. twice daily. Temporarily holding prednisone 10 mg daily dosing until determine whether pulmonology will place him on IV Solu-Medrol #Elevated troponin/hypertension/orthostatic hypotension- Troponin 39.0 on admission with follow-up pending Most recent echocardiogram 12/01/2023 with ejection fraction 60-65% Continue aspirin, metoprolol succinate #Chronic medical conditions: Hypothyroidism-continue levothyroxine Neuropathy-continue gabapentin GERD-continue omeprazole/pantoprazole and famotidine BPH with LUTS-continue tamsulosin and finasteride Anxiety/insomnia-continue alprazolam History of Present Illness Chief Complaint: The patient presents to the emergency department with concern regarding left parasternal chest pain that he reports woke him up from sleep earlier this evening. He reports that the pain does seem to run along underneath one of his ribs on the left side, but does occasionally extend to the left side of his back as well. He denies any recent travels, sick exposures, he does have issues with occasionally significant paroxysmal cough associated with underlying interstitial lung disease, for which she follows with Dr. Mares from pulmonology. He was recently on a 5-day prednisone tapering course, and is back to his baseline prednisone dosing at this time. He has chronic dyspnea on exertion, forts he does use 3 L nasal cannula oxygen as needed. He reports no recent change in this requirement Primary Care Provider: Sallie Mckeon MD The patient is a 84-year-old male with past medical history including interstitial lung disease, nocturnal hypoxia, exertional hypoxia requiring 3 L nasal cannula, history of YSABEL superimposed on CKD, elevated troponin, orthostatic hypotension, cardiomyopathy, anxiety, GERD, hypothyroidism, diabetes mellitus type 2, hyperlipidemia, history of accelerated idioventricular rhythm, pulm hypertension, PVCs, Schatzki's ring, aortic stenosis, occipital neuralgia, and cervicalgia.The patient presents to the emergency department with concern regarding left parasternal chest pain that he reports woke him up from sleep earlier this evening. He reports that the pain does seem to run along underneath one of his ribs on the left side, but does occasionally extend to the left side of his back as well. He denies any recent travels, sick exposures, he does have issues with occasionally significant paroxysmal cough associated with underlying interstitial lung disease, for which she follows with Dr. Mares from pulmonology. He was recently on a 5-day prednisone tapering course, and is back to his baseline prednisone dosing at this time. He has chronic dyspnea on exertion, forts he does use 3 L nasal cannula oxygen as needed. He reports no recent change in this requirement Allergies Allergy/AdvReac Type Severity Reaction Status Date / Time Sulfa (Sulfonamide Allergy Severe RASH, Verified 11/10/24 10:39 Antibiotics) HIVES, SWOLLEN MOUTH, THROAT SWELLING lisinopril Allergy Intermediate lethargic Verified 11/10/24 10:39 Penicillins Allergy Intermediate RASH, HIVES Verified 11/10/24 10:39 Home Medications Medication Instructions Recorded Confirmed Type aspirin 81 mg tablet,delayed 81 mg PO DAILY 12/13/23 11/10/24 History release (Adult Aspirin Regimen) finasteride 5 mg tablet (Proscar) 5 mg PO QPM #90 tabs 01/09/24 11/10/24 Rx omeprazole 40 mg capsule,delayed See Rx Instructions .Route 03/04/24 11/10/24 Rx release .COMPLEX #30 caps tamsulosin 0.4 mg capsule See Rx Instructions .Route 03/04/24 11/10/24 Rx .COMPLEX #90 caps pen needle, diabetic 32 gauge x #100 ea 03/13/24 10/02/24 Rx 5/32" (BD Ultra-Fine Vale Pen Needle) mycophenolate mofetil 250 mg 250 mg PO BID #120 caps 07/31/24 11/10/24 Rx capsule (CellCept) allopurinol 100 mg tablet See Rx Instructions .Route 08/21/24 11/10/24 Rx .COMPLEX #90 tabs escitalopram oxalate 10 mg tablet 10 mg PO QAM #90 tabs 08/21/24 11/10/24 Rx levothyroxine 50 mcg tablet See Rx Instructions .Route 08/21/24 11/10/24 Rx .COMPLEX #90 tabs blood-glucose sensor (FreeStyle #2 ea 08/27/24 10/02/24 Rx Vanessa 3 Plus Sensor device) gabapentin 300 mg capsule 300 mg PO TID #90 caps 09/18/24 11/10/24 Rx Oxygen Home #1 ea 09/29/24 10/02/24 Rx famotidine 40 mg tablet (Pepcid) 40 mg PO HS #90 tabs 10/14/24 11/10/24 Rx fluticasone propionate 50 1 spray intranasal BID PRN 11/10/24 History mcg/actuation nasal spray,suspension (Flonase Allergy Relief) furosemide 20 mg tablet 20 mg PO Q OTHER DAY edema 11/10/24 History midodrine 5 mg tablet 5 mg PO DAILY 11/10/24 11/10/24 History metoprolol succinate 25 mg 25 mg PO QPM #90 tabs 11/11/24 Rx tablet,extended release 24 hr alprazolam 0.5 mg tablet (Xanax) 0.25 mg (1/2 x 0.5 mg) PO HS #15 12/10/24 Rx tabs prednisone 10 mg tablet 10 mg PO DAILY #30 tabs 12/10/24 Rx tirzepatide 7.5 mg/0.5 mL 7.5 mg (0.5 mL) subcut WK #2 mL 12/25/24 Rx subcutaneous pen injector Past Med/Surg History Problem List (Updated 01/05/25 @ 06:42 by David Yo MD) Elevated d-dimer Chest pain (Acute) Productive cough Hypoxemia Chronic anemia Nocturnal hypoxia Acute kidney injury superimposed on chronic kidney disease Septic shock Nausea & vomiting (Acute) Acute hypotension (Acute) Elevated troponin (Acute) Abdominal pain (Acute) Acute kidney injury Orthostatic hypotension Cardiomyopathy LV systolic function has normalized. Etiology of CM unknown. Anxiety GERD (gastroesophageal reflux disease) Relatively controlled with medication (improved from previous) Hypothyroidism Concussion (Acute) CKD (chronic kidney disease) DMII (diabetes mellitus, type 2) Hyperlipidemia Hyponatremia Interstitial lung disease (Acute) "HAS NOT USED INHALER FOR A LONG TIME" Breathing stable at rest- mild FONTANEZ with long walks (chronic and unchanged) Accelerated idioventricular rhythm Asymptomatic. Beta-juanjose has been initiated since Holter monitor per card io records Pulmonary hypertension PVCs (premature ventricular contractions) Mitral regurgitation Schatzki's ring No dysphagia Edema (Acute) Hypertension Aortic stenosis Mild AV stenosis on 10/15/20 ECHO "AV opens well" on 05/11/21 ECHO -Per 08/2021 cardio note- noted in 2019 - no significant stenosis on most recent ECHO- known sclerotic AV- "no significant stenosis" RBBB Pulmonary edema (Acute) Aortic valve sclerosis Occipital neuralgia Cervicalgia Medical History Recurrent falls History of osteomyelitis left foot Periprosthetic fracture around internal prosthetic joint Cervical spondylosis Migraine Hx of melanoma of skin RT EAR Low iron Anemia stable per patient Hx of esophageal ulcer Hx of gout Controlled with Allopurinol Chronic kidney disease, stage III (moderate) BPH (benign prostatic hyperplasia) Venous insufficiency Frequent PVCs FOLLOWED BY DR. 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 - 08/06/19 [facility] [place] History of colonoscopy History of esophagogastroduodenoscopy (EGD) with dilation History of wisdom tooth extraction History of tonsillectomy and adenoidectomy History of cardiac cath no stents>YEARS AGO AT [facility] S/P dilatation of esophageal stricture H/O foot surgery RT FOOT History of bilateral knee replacement Family History Father Family history of diabetes mellitus Coronary heart disease Prostate cancer Myocardial infarction Uncle Coronary heart disease Sister Breast cancer Other No family history of adverse response to anesthesia Denies family history of Ovarian cancer Colorectal cancer Social History Smoking Status: Never smoker Second Hand Exposure: No; Do You Dip or Chew Tobacco: No; Hx Alcohol Use: No Hx Substance Use: No Preferred Language: Kittitian Communication Ability: Effective Visual Impairment: Limited Hearing Ability: Use of Hearing Aid Tube Carrier Required: No Beliefs That Will Affect Care: None marital status: / Current Living Situation: Alone current occupational status: retired How many Children do You have: 3 Feels Safe at Home: Yes Childhood Exposure to Second-Hand Smoke: Yes Diet: low carbohydrate and regular caffeine: Yes during the past year weight has: increased > 10 lbs Dental Care, Regularly: Yes Physical Activity Frequency: 1-2 Times per Week Seatbelt Use: always Sunscreen Use: Yes Assistive Devices: Cane, Oxygen - at Night, Walker and Wheelchair Review of Systems Review of Systems: The patient denies palpitations, lower extremity swelling, sore throat, fevers, chills, sweats, nausea, vomiting, diarrhea , constipation, abdominal pain, pelvic pain, blood in urine or stool, dysuria, urinary frequency or urgency, lightheadedness, dizziness, headache, memory loss, loss of consciousness, rash, abnormal bruising or bleeding, focal weakness, numbness or tingling in arms or legs, generalized arthralgias or myalgias, back or neck pain, or night sweats. The review of systems is otherwise negative other than for that already noted above, and at least 10 systems have been reviewed. Physical Exam Physical Exam: The patient is awake, alert and oriented 3, well developed and well nourished, normocephalic and atraumatic, lying in bed and in no acute distress. HEENT--PERRL, EOMI, mucous membranes and oropharynx dry. Neck--supple. No JVD. No bruits. Thyroid normal, trachea midline, no adenopathy. Heart--normal S1 and S2. No murmurs, rubs or gallops. Lungs--clear bilaterally, no respiratory distress, no accessory muscle use. Abdomen--normal bowel sounds and soft. Nontender. Nondistended, no hernias or masses, no organomegaly. Extremities--trace pitting edema bilaterally Dermatologic--normal skin turgor, normal color, no abnormal lymph nodes, no rash. Neurologic--cranial nerves II through XII grossly intact. Rheumatologic--normal range of motion. Psychiatric--normal affect. Results & Data Results & Data Vital Signs (Past 12 Hours) Vital Signs Temp Pulse Pulse Resp BP BP Pulse Ox 01/05/25 05:53 73 16 136/89 97 01/05/25 05:33 73 01/05/25 04:51 36.5 C 88 16 167/96 H 92 O2 Del Method 01/05/25 05:53 Room Air 01/05/25 05:33 01/05/25 04:51 Room Air Laboratory Results Laboratory Results WBC 18.22 K/ul (4.8-10.8) H 01/05/25 04:56 RBC 4.18 M/uL (4.70-6.10) L 01/05/25 04:56 Hgb 12.6 g/dl (14.0-18.0) L 01/05/25 04:56 Hct 37.7 % (42.0-52.0) L 01/05/25 04:56 MCV 90.2 fL (80.0-100.0) 01/05/25 04:56 MCH 30.1 pg (25.0-34.0) 01/05/25 04:56 MCHC 33.4 g/dL (32.0-36.0) 01/05/25 04:56 RDW Std Deviation 44.5 fL (36.4-46.3) 01/05/25 04:56 RDW Coeff of Graham 13.6 % (11.5-14.5) 01/05/25 04:56 Plt Count 268 K/uL (130-400) 01/05/25 04:56 MPV 10.4 fL (9.4-12.4) 01/05/25 04:56 Immature Gran % (Auto) 2.7 % 01/05/25 04:56 Neut % (Auto) 82.3 % 01/05/25 04:56 Lymph % (Auto) 7.0 % 01/05/25 04:56 Pierce % (Auto) 6.8 % 01/05/25 04:56 Eos % (Auto) 1.0 % 01/05/25 04:56 Baso % (Auto) 0.2 % 01/05/25 04:56 Neut # (Auto) 14.99 K/uL (1.40-6.50) H 01/05/25 04:56 Lymph # (Auto) 1.27 K/uL (1.20-3.40) 01/05/25 04:56 Pierce # (Auto) 1.24 K/uL (0.11-0.59) H 01/05/25 04:56 Eos # (Auto) 0.19 K/uL (0.00-0.50) 01/05/25 04:56 Baso # (Auto) 0.03 K/uL (0.00-0.20) 01/05/25 04:56 Immature Gran # (Auto) 0.50 K/uL (0.01-0.20) H 01/05/25 04:56 PT 10.2 Seconds (9.0-12.0) 01/05/25 04:56 INR 0.9 (0.9-1.1) 01/05/25 04:56 D-Dimer 1320 ug/L FEU (0-500) H* 01/05/25 04:56 Sodium 130 mmol/L (136-145) L 01/05/25 04:56 Potassium 4.0 mmol/L (3.5-5.1) 01/05/25 04:56 Chloride 95 mmol/L (98-107) L 01/05/25 04:56 Carbon Dioxide 29 mmol/L (21-32) 01/05/25 04:56 Anion Gap 6 (3-11) 01/05/25 04:56 BUN 33 mg/dl (6-23) H 01/05/25 04:56 Creatinine 1.12 mg/dl (0.6-1.4) 01/05/25 04:56 Est Cr Clr Drug Dosing 50.1 ml/min 01/05/25 04:56 eGFR 63.98 01/05/25 04:56 BUN/Creatinine Ratio 29.5 (10-20) H 01/05/25 04:56 Glucose 132 mg/dl (70-99(Fasting)) H 01/05/25 04:56 Calcium 9.1 mg/dl (8.6-10.3) 01/05/25 04:56 Magnesium 2.0 mg/dl (1.7-2.4) 01/05/25 04:56 Total Bilirubin 0.4 mg/dl (0.2-1.0) 01/05/25 04:56 AST 16 U/L (13-39) 01/05/25 04:56 ALT 18 U/L (7-52) 01/05/25 04:56 Alkaline Phosphatase 55 U/L (34-104) 01/05/25 04:56 Troponin I High Sens 39.0 pg/ml (0-20) H 01/05/25 04:56 Total Protein 6.0 gm/dl (6.0-8.3) 01/05/25 04:56 Albumin 3.7 gm/dl (3.4-5.0) 01/05/25 04:56 Globulin 2.3 gm/dl (2.5-4.0) L 01/05/25 04:56 Albumin/Globulin Ratio 1.6 (0.9-2) 01/05/25 04:56 Lipase 44 U/L (11-82) 01/05/25 04:56 TSH 1.545 uIu/ml (0.300-4.500) 01/05/25 04:56 Code Status & VTE Plan Code Status Conditional code: Patient will except chest compressions and defibrillation Patient does not want intubation VTE Prophylaxis Plan VTE Prophylaxis will be ordered: Yes PG Care Time/CCT Total # of Minutes Spent Total Time Spent with Patient: Total time spent is greater than 50% in coordination of care (as documented) at patient's floor/unit and/or counseling patient: Coding Level of Care Code 39192 INT INP/OBS CARE 3/75MIN Diagnoses Interstitial lung disease J84.9 Chest pain R07.9 Elevated d-dimer R79.89 Elevated troponin R79.89 Hypoxemia R09.02
[2025-01-05] MEDS ORDERED: ACETAMINOPHEN 325 MG TAB PO PRN (06:43)
--- NOTE | 2025-01-05 06:43 | XRay Report ---
EXAM: XR chest 1V portable CLINICAL HISTORY: Chest pain. TECHNIQUE: An X-ray image of the chest is obtained in AP projection. COMPARISON: 09/26/2024 chest X-ray and 12/10/2024 CT chest was reviewed. FINDINGS: Pulmonary Parenchyma: Right upper zone and bilateral lower zone patchy airspace opacities with cystic changes are seen. Clear right costophrenic angle. Parahilar congestive changes. Heart and Mediastinum: Apparent cardiomegaly with mediastinal widening. No hilar or mediastinal lymphadenopathy. Prominent aortic shadow, stable. Bony Thorax: Bony thorax appears intact without fractures or deformities. Soft Tissues: Soft tissues overlying the chest wall are unremarkable. IMPRESSION: 1. Right upper zone and bilateral lower zone patchy airspace opacities with cystic changes are seen. Corresponding to CT they are suggestive of bronchiectatic changes with interlobular septal thickening. Progressed as compared to prior chest Xray dated 09/26/2024. 2. Parahilar congestive changes. Electronically signed by Shayy Agarwal 01-05-2025 06:42 AM
[2025-01-05 07:07] LABS: Adenovirus PCR Not Detected (NotDetected); Bordetella parapertussis PCR Not Detected (NotDetected); Bordetella pertussis PCR Not Detected (NotDetected); Chlamydia pneumoniae PCR Not Detected (NotDetected); Coronavirus 229E PCR Not Detected (NotDetected); Coronavirus CoV-2 (COVID19)PCR Not Detected (NotDetected); Coronavirus HKU1 PCR Not Detected (NotDetected); Coronavirus NL63 PCR Not Detected (NotDetected); Coronavirus OC43PCR Not Detected (NotDetected); Human Metapneumovirus PCR Not Detected (NotDetected); Influenza A PCR Not Detected (NotDetected); Influenza B PCR Not Detected (NotDetected); Mycoplasma pneumoniae PCR Not Detected (NotDetected); Parainfluenza Virus 1 PCR Not Detected (NotDetected); Parainfluenza Virus 2 PCR Not Detected (NotDetected); Parainfluenza Virus 3 PCR Not Detected (NotDetected); Parainfluenza Virus 4 PCR Not Detected (NotDetected); Respiratory Syncytial VirusPCR Not Detected (NotDetected); Rhinovirus/Enterovirus PCR Not Detected (NotDetected)
--- NOTE | 2025-01-05 07:33 | CT Scan Report ---
EXAM: CT angio chest PE protocol CLINICAL HISTORY: PE TECHNIQUE: CT angiography of the chest was performed with and without intravenous contrast with the following protocol: axial images with, reconstructed coronal and sagittal images. Non-contrast images were initially acquired, followed by contrast-enhanced images in arterial and venous phases. Intravenous contrast [name and volume] was administered using automated injection techniques. Bolus tracking was employed to optimize arterial phase imaging. One of these 3D techniques was utilized: Maximum Intensity Pixel (MIP), 3D Reconstructed Images, Volume Rendered Images, Surface Shaded Rendering. One of the following dose reduction techniques was utilized for this exam: Automated exposure control, adjustment of the mA and/or kV according to patient size, and use of iterative reconstruction. COMPARISON: Prior study dated 03/02/2024 is available for comparison. FINDINGS: Aorta and Great Vessels: Mild atheroscleoritc plaques are seen in aorta. No aneurysm or dissection. Pulmonary Arteries: The main pulmonary artery and its branches are patent. No evidence of pulmonary embolism or significant stenosis. Heart: Cardiac Chambers: Normal in size. No evidence of cardiomegaly. Pericardium: No pericardial effusion or thickening. Lungs and Pleura: Interlobular and intralobular interstitial septal thickening is seen in right upper lobe, right middle lobe, lingula and posterior superior segment of right lower lobe, basal segments of bilateral lower lobes with tractionl bronchiectasis. Few subpleural cysts are seen. No evidence of consolidation, collapse, or focal lesions. No pleural effusion or pleural thickening. Mediastinum: No mediastinal mass or abnormal lymphadenopathy. Normal appearance of the trachea and central bronchi. Hilar Structures: Hilar structures are normal without enlargement. Chest Wall: No mass lesions or abnormalities in the chest wall. Vascular Structures: Superior Vena Cava: Patent without evidence of stenosis or thrombus. Inferior Vena Cava: Patent without evidence of stenosis or thrombus. Bones and Soft Tissues: No fractures, lytic, or blastic lesions of the visualized bony structures. Soft tissues are unremarkable. IMPRESSION: 1. No evidence of pulmonary thromboembolism. 2. Interstitial septal thickening with bronchiectasis in bilateral lung flannery with asymmetric pattern. No obvious honeycombing or ground glass haziness. 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 Correlation with history and lab markers is advised. Electronically signed by Kerwin Georges 01-05-2025 07:33 AM
--- NOTE | 2025-01-05 08:16 | Pulmonary Consultation ---
Date of Consultation January 05, 2025 Assessment & Plan (1) Nocturnal hypoxia: (2) Pulmonary hypertension: (3) Interstitial lung disease: Plan CTA chest 01/05/2025 personally reviewed: Interlobular thickening as well as traction bronchiectasis and honeycombing appreciated bilaterally More evident on the right upper as well as right lower lobe Cardiomegaly with evidence of pulmonary hypertension No significant mediastinal lymphadenopathy -- Interstitial lung disease Patient follows with Dr. Mares as outpatient On mycophenolate along with prednisone 10 mg on a daily basis No clear signs of infiltrate on the CT chest 01/05/2025, not significantly changed compared to HRCT 12/10/2024 Respiratory bio fire negative for everything on 01/05/2025 -- Chronic hypoxic respiratory failure Uses 2-3 L oxygen [id number] Plan: CT chest does not show any signs of worsening of ILD or infection Retrosternal chest pain as well as the left-sided chest pain does not seem to be coming from the lungs. Cardiac etiology first followed by musculoskeletal etiology should be ruled out Pulmonary will continue to follow Please note the above document was generated using voice recognition software. It may contain grammatical, syntax or spelling errors.Any formal questions or concerns about the content, text or information contained within the body of this dictation should be directly addressed to the provider for clarification. History of Present Illness Attending Physician: Chon Keith MD History of Present Illness 84-year-old male with past medical history of interstitial lung disease presented to the hospital with complaints of chest pain Past medical history: Cardiomyopathy with improved ejection fraction, diabetes type 2, GERD Patient had rheumatoid factor positive and eosinophilia on the BAL from previous bronchoscopy. Decision was made not to pursue lung biopsy in the patient given his age. Patient's son was in the room at the time of examination. Para he was not in any respiratory distress, saturating 97-98% on 2 L, went down to 2 L Patient stated that he woke up last night with complaints of left-sided chest pain radiating to the shoulder as well as the neck. Is also retrosternal. No exacerbating or relieving factors Denies any associated shortness of breath with it. He does have chronic cough especially early in the morning and has no difficulty bringing up the phlegm No hemoptysis He is compliant with his mycophenolate on a daily basis along with prednisone 10 mg. No dysuria, no diarrhea No fever or chills No unusual headache or any other. Social history: lifetime non-smoker, no alcohol use, no drug use Allergies Allergy/AdvReac Type Severity Reaction Status Date / Time Sulfa (Sulfonamide Allergy Severe RASH, Verified 11/10/24 10:39 Antibiotics) HIVES, SWOLLEN MOUTH, THROAT SWELLING lisinopril Allergy Intermediate lethargic Verified 11/10/24 10:39 Penicillins Allergy Intermediate RASH, HIVES Verified 11/10/24 10:39 Home Medications Medication Instructions Recorded Confirmed Type finasteride 5 mg tablet (Proscar) 5 mg PO QPM #90 tabs 01/09/24 01/05/25 Rx pen needle, diabetic 32 gauge x #100 ea 03/13/24 10/02/24 Rx 5/32" (BD Ultra-Fine Vale Pen Needle) mycophenolate mofetil 250 mg 250 mg PO BID #120 caps 07/31/24 01/05/25 Rx capsule (CellCept) escitalopram oxalate 10 mg tablet 10 mg PO QAM #90 tabs 08/21/24 01/05/25 Rx blood-glucose sensor (FreeStyle #2 ea 08/27/24 10/02/24 Rx Vanessa 3 Plus Sensor device) gabapentin 300 mg capsule 300 mg PO TID #90 caps 09/18/24 01/05/25 Rx Oxygen Home #1 ea 09/29/24 10/02/24 Rx famotidine 40 mg tablet (Pepcid) 40 mg PO HS #90 tabs 10/14/24 01/05/25 Rx furosemide 20 mg tablet 20 mg PO Q OTHER DAY edema 11/10/24 01/05/25 History metoprolol succinate 25 mg 25 mg PO QPM #90 tabs 11/11/24 01/05/25 Rx tablet,extended release 24 hr alprazolam 0.5 mg tablet (Xanax) 0.25 mg (1/2 x 0.5 mg) PO HS #15 12/10/24 01/05/25 Rx tabs prednisone 10 mg tablet 10 mg PO DAILY #30 tabs 12/10/24 01/05/25 Rx tirzepatide 7.5 mg/0.5 mL 7.5 mg (0.5 mL) subcut WK #2 mL 12/25/24 01/05/25 Rx subcutaneous pen injector allopurinol 100 mg tablet 100 mg PO QAM 01/05/25 01/05/25 History aspirin 81 mg tablet,delayed 81 mg PO BID 01/05/25 01/05/25 History release guaifenesin 1,200 mg tablet, 1,200 mg PO QAM 01/05/25 01/05/25 History extended release 12 hr (Mucinex) levothyroxine 50 mcg tablet 50 mcg PO QAM 01/05/25 01/05/25 History midodrine 5 mg tablet 5 mg PO TID 01/05/25 01/05/25 History multivitamin 1 tab PO QAM 01/05/25 01/05/25 History omeprazole 40 mg capsule,delayed 40 mg PO QAM 01/05/25 01/05/25 History release tamsulosin 0.4 mg capsule 0.4 mg PO QPM 01/05/25 01/05/25 History Patient History Medical History Recurrent falls History of osteomyelitis left foot Periprosthetic fracture around internal prosthetic joint Cervical spondylosis Migraine Hx of melanoma of skin RT EAR Low iron Anemia stable per patient Hx of esophageal ulcer Hx of gout Controlled with Allopurinol Chronic kidney disease, stage III (moderate) BPH (benign prostatic hyperplasia) Venous insufficiency Frequent PVCs FOLLOWED BY DR. 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 - 08/06/19 [facility] [place] of colonoscopy History of esophagogastroduodenoscopy (EGD) with dilation History of wisdom tooth extraction History of tonsillectomy and adenoidectomy History of cardiac cath no stents>YEARS AGO AT [facility] S/P dilatation of esophageal stricture H/O foot surgery RT FOOT History of bilateral knee replacement Family History Father Family history of diabetes mellitus Coronary heart disease Prostate cancer Myocardial infarction Uncle Coronary heart disease Sister Breast cancer Other No family history of adverse response to anesthesia Denies family history of Ovarian cancer Colorectal cancer Social History Smoking Status: Never smoker Second Hand Exposure: No; Do You Dip or Chew Tobacco: No; Hx Alcohol Use: No Hx Substance Use: No Preferred Language: Italian Communication Ability: Effective Visual Impairment: Limited Hearing Ability: Use of Hearing Aid Billing Rep Required: No Beliefs That Will Affect Care: None marital status: / Current Living Situation: Alone current occupational status: retired How many Children do You have: 3 Feels Safe at Home: Yes Safety Concerns: Feels Safe At This Time Childhood Exposure to Second-Hand Smoke: Yes Diet: low carbohydrate and regular caffeine: Yes during the past year weight has: increased > 10 lbs Dental Care, Regularly: Yes Physical Activity Frequency: 1-2 Times per Week Seatbelt Use: always Sunscreen Use: Yes Assistive Devices: Glasses and Walker Review of Systems 2 Review of Systems: All systems reviewed & are unremarkable except as noted in HPI & below Physical Exam 2 Physical Exam: Constitutional: No acute distress HEENT: EOMI, PERRLA Respiratory system: Decreased air entry bilaterally, no wheeze, rhonchi, positive Velcro-like crackles appreciated bilaterally CVS: S1-S2 positive, no murmurs or gallops Abdomen: Soft, nontender, nondistended, positive bowel sounds x4 Extremities: +2 pulses bilaterally radialis/ dorsalis pedis, no cyanosis, +2 pitting edema bilateral lower extremity, R>L Neuro: Awake alert oriented x3 Psych: Normal mood and affect G/U: No Maier Skin: no rashes, warm and dry Lymphatic: no cervical or axillary lymphadenopathy Results & Data Results & Data Vital Signs (Past 12 Hours) Vital Signs Temp Pulse Pulse Resp BP BP Pulse Ox 01/05/25 07:15 68 01/05/25 05:53 73 16 136/89 97 01/05/25 05:33 73 01/05/25 04:51 36.5 C 88 16 167/96 H 92 O2 Del Method 01/05/25 07:15 01/05/25 05:53 Room Air 01/05/25 05:33 01/05/25 04:51 Room Air Laboratory Results 01/05/25 04:56 01/05/25 04:56 PG Care Time/CCT Total # of Minutes Spent Total Time Spent with Patient: Total time spent is greater than 50% in coordination of care (as documented) at patient's floor/unit and/or counseling patient: Coding Level of Care Code 84340 INT INP/OBS CARE MIN Diagnoses Nocturnal hypoxia G47.34 Pulmonary hypertension I27.20 Interstitial lung disease J84.9
--- NOTE | 2025-01-05 08:31 | Hospitalist Progress Note ---
Date of Service January 05, 2025 Assessment & Plan (1) Interstitial lung disease: (2) Chest pain: (3) Elevated d-dimer: (4) Elevated troponin: (5) Hypoxemia: Plan The patient is a 84-year-old male with past medical history including interstitial lung disease oxygen dependent 3 L nasal cannula, CKD 3, orthostatic hypotension, cardiomyopathy, anxiety, GERD, hypothyroidism, diabetes mellitus type 2, hyperlipidemia, history of accelerated idioventricular rhythm, pulm hypertension, PVCs, Schatzki's ring, aortic stenosis, occipital neuralgia, and cervicalgia.patient presented with chest pain at rest which is pleuritic and reproducible, he was recently on a 5-day prednisone tapering course, and is back to his baseline prednisone dosing at this time. Patient was noted to have an elevated D-dimer of 1320 at the time of admission, with CTA chest PE without evidence of pulmonary embolism or rib fracture.. Troponin elevated at 39.0. Respiratory BioFire testing pending at the time of admission. #Chronic respiratory failure with hypoxia/interstitial lung disease/pulmonary hypertension- CT angiography of chest negative for pulmonary embolism does show interstitial lung disease, venous Doppler bilateral lower extremity negative, negative respiratory BioFire panel Will continue usual dosing of mycophenolate and 250 mg p.o. twice daily. # Chest pain felt not to be cardiac, elevated troponin/hypertension/orthostatic hypotension- Multimodal pain control including Lidoderm patch and parenteral opiates with scheduled Tylenol Troponin 39.035.4 suspect to be demand ischemia Most recent echocardiogram 12/01/2023 with ejection fraction 60-65% Continue aspirin, metoprolol succinate #Chronic medical conditions: Hypothyroidism-continue levothyroxine Neuropathy-continue gabapentin GERD-continue omeprazole/pantoprazole and famotidine BPH with LUTS-continue tamsulosin and finasteride Anxiety/insomnia-continue alprazolam Admission and Anticipated Discharge Date Admission Date: January 05, 2025 Subjective Patient is significant left posterior chest wall pain. This is reproducible and pleuritic. It began at rest. Current pain control is not been sufficient Physical Exam Physical Exam: Patient has some splinting patient's however has bilateral air movement decreased at the bases Card exam is regular with a systolic ejection murmur Extremities are with trace edema Results & Data Results & Data Vital Signs (Past 12 Hours) Vital Signs Temp Pulse Pulse Resp BP BP Pulse Ox 01/05/25 07:15 68 01/05/25 05:53 73 16 136/89 97 01/05/25 05:33 73 01/05/25 04:51 97.7 F 88 16 167/96 H 92 O2 Del Method 01/05/25 07:15 01/05/25 05:53 Room Air 01/05/25 05:33 01/05/25 04:51 Room Air PG Care Time/CCT Total # of Minutes Spent Total Time Spent with Patient: Total time spent is greater than 50% in coordination of care (as documented) at patient's floor/unit and/or counseling patient: Coding Level of Care Code None Diagnoses Interstitial lung disease J84.9 Chest pain R07.9 Elevated d-dimer R79.89 Elevated troponin R79.89 Hypoxemia R09.02
[2025-01-05] MEDS: MoRPHine SULFATE 2 MG/ML CARP IV PRN (09:08)
--- NOTE | 2025-01-05 09:09 | Ultrasound Report ---
BILATERAL LOWER EXTREMITY VENOUS DOPPLER HISTORY: elevated D-Dimer COMPARISON STUDY: 04/03/2023 FINDINGS: There is no evidence of DVT of bilateral lower extremities. IMPRESSION: No DVT seen. ACT 112: Negative or not required by law. Electronically signed by: Brennon Lemos M.D. 01/05/2025 9:08 AM
[2025-01-05] MEDS: allopurinoL 100 MG TAB PO SCH (09:12)
[2025-01-05] MEDS: ASPIRIN 81 MG ECTAB PO SCH (09:12)
[2025-01-05] MEDS: LEVOTHYROXINE SODIUM 50 MCG TABLET PO SCH (09:12)
[2025-01-05] MEDS: PANTOprazole 40 MG TAB PO SCH (09:13)
[2025-01-05] MEDS: ESCITALOPRAM OXALATE 10 MG TAB PO SCH (09:13)
[2025-01-05] MEDS: MYCOPHENOLATE MOFETIL 250 MG CAP PO SCH (09:13)
[2025-01-05] MEDS: GABAPENTIN 300 MG CAP PO SCH (09:13)
[2025-01-05] MEDS: MIDODRINE HCL 2.5 MG TAB PO SCH (09:13)
[2025-01-05] MEDS: oxyCODONE HCL IR 5 MG TAB (IMMEDIATE RELEASE) PO PRN (12:01)
[2025-01-05] MEDS ORDERED: MoRPHine SULFATE 2 MG/ML CARP IV PRN (12:59)
[2025-01-05] MEDS: MoRPHine SULFATE 2 MG/ML CARP IV STA (13:14)
[2025-01-05] MEDS: LIDOCAINE 5% 1 PATCH TD STA (13:15)
[2025-01-05] MEDS: ACETAMINOPHEN 500 MG TAB PO SCH (14:47)
--- NOTE | 2025-01-05 15:38 | Electrocardiogram Report ---
Test Reason : Blood Pressure : */* mmHG Vent. Rate : 85 BPM Atrial Rate : 85 BPM P-R Int : 124 ms QRS Dur : 158 ms QT Int : 426 ms P-R-T Axes : 14 -47 -5 degrees QTcB Int : 506 ms Sinus rhythm with marked sinus arrhythmia Right bundle branch block Left anterior fascicular block Bifascicular block Abnormal ECG When compared with ECG of 02-Mar-2024 21:32, No significant change was found Confirmed by Jeronimo Moise ([id number]) on 01/05/2025 3:38:10 PM Referred By: REFERRED SELF Confirmed By: Jeronimo Moise
[2025-01-05] MEDS: FAMOTIDINE 40 MG TABLET PO SCH (20:29)
[2025-01-05] MEDS: ALPRAZolam 0.25 MG TABLET PO SCH (20:29)
[2025-01-05] MEDS: FINASTERIDE 5 MG TAB PO SCH (20:30)
[2025-01-05] MEDS: METOPROLOL SUCC 25MG EXT REL TAB PO SCH (20:31)
[2025-01-05] MEDS: TAMSULOSIN HCL 0.4 MG CAP PO SCH (21:22)
[2025-01-06 06:30] LABS: iSTAT Arterial Blood Gas HCO3 24 meg/L (19-24); iSTAT Arterial Blood Gas pCO2 38 mmHg (35-46); iSTAT Arterial Blood Gas pH 7.41 (7.35-7.45); iSTAT Arterial Blood Gas pO2 44 mmHg (80-95); iSTAT Carbon Dioxide 25 mmol/L (24-31); iSTAT Hematocrit 29 % (42-52); iSTAT Hemoglobin 9.9 g/dl (14.0-18.0); iSTAT Potassium 5.3 mmol/L (3.3-5.0); iSTAT Sodium 124 mmol/L (135-144)
[2025-01-06] MEDS: ALBUT/IPRATROP 3MG/0.5MG NEB 3 ML VIAL NEB STA (06:30)
[2025-01-06] MEDS: ALBUT/IPRATROP 3MG/0.5MG NEB 3 ML VIAL ONE (06:30)
[2025-01-06] MEDS: ALBUT/IPRATROP 3MG/0.5MG NEB 3 ML VIAL NEB ONE (06:30)
[2025-01-06 06:34] LABS: Hematocrit (blood only) 31.3 % (42.0-52.0); Hemoglobin 10.6 g/dl (14.0-18.0); Mean Corpuscular Hemoglobin 30.9 pg (25.0-34.0); Mean Corpuscular Hgb Conc 33.9 g/dL (32.0-36.0); Mean Corpuscular Volume 91.3 fL (80.0-100.0); Mean Platelet Volume 10.7 fL (9.4-12.4); Nucleated RBC # (auto) 0.02 K/uL (0.00-0.12); Nucleated RBC % (auto) 0.1 %; Platelet Count 279 K/uL (130-400); RDW Coefficient of Variation 13.9 % (11.5-14.5); RDW Standard Deviation 46.1 fL (36.4-46.3); Red Blood Count 3.43 M/uL (4.70-6.10); White Blood Count 38.29 K/ul (4.8-10.8)
[2025-01-06 06:36] LABS: Albumin Globulin Ratio 1.3 (0.9-2); Albumin Level 3.3 gm/dl (3.4-5.0); BUN Creatinine Ratio 19.6 (10-20); Bilirubin,Total 0.8 mg/dl (0.2-1.0); Calcium 8.4 mg/dl (8.6-10.3); Creatinine Clr Calc Pharmacy 24.9 ml/min; Globulin 2.6 gm/dl (2.5-4.0); Magnesium 1.9 mg/dl (1.7-2.4); Potassium 5.5 mmol/L (3.5-5.1); Total Protein 5.9 gm/dl (6.0-8.3)
[2025-01-06] MEDS: SODIUM CHLORIDE 0.9% 500 ML IV ONE (06:48)
[2025-01-06] MEDS: methylPREDNISolone 125 MG/2 ML VIAL IV STA (06:48)
[2025-01-06] MEDS: methylPREDNISolone 125 MG/2 ML VIAL ONE (06:48)
[2025-01-06 06:57] LABS: Basophils # (auto) 0.07 K/uL (0.00-0.20); Basophils % (auto) 0.2 %; Eosinophils # (auto) 0.01 K/uL (0.00-0.50); Immature Granulocytes # (auto) 0.72 K/uL (0.01-0.20); Immature Granulocytes % (auto) 1.9 %; Lymphocytes # (auto) 1.16 K/uL (1.20-3.40); Monocytes # (auto) 1.94 K/uL (0.11-0.59); Monocytes % (auto) 5.1 %; Neutrophils # (auto) 34.39 K/uL (1.40-6.50); Neutrophils % (auto) 89.8 %; RBC Morphology Unremarkable
--- NOTE | 2025-01-06 07:07 | Hospitalist Progress Note ---
Date of Service January 06, 2025 Assessment & Plan (1) Interstitial lung disease: (2) Chest pain: (3) Elevated d-dimer: (4) Elevated troponin: (5) Hypoxemia: Plan The patient is a 84-year-old male with past medical history including interstitial lung disease oxygen dependent 3 L nasal cannula, CKD 3, orthostatic hypotension, cardiomyopathy, anxiety, GERD, hypothyroidism, diabetes mellitus type 2, hyperlipidemia, history of accelerated idioventricular rhythm, pulm hypertension, PVCs, Schatzki's ring, aortic stenosis, occipital neuralgia, and cervicalgia.patient presented with chest pain at rest which is pleuritic and reproducible, he was recently on a 5-day prednisone tapering course. Patient was noted to have an elevated D-dimer of 1320 at the time of admission, with CTA chest PE without evidence of pulmonary embolism or rib fracture. Respiratory BioFire testing pending at the time of admission. #Acute on Chronic respiratory failure with hypoxia/interstitial lung disease/pulmonary hypertension- decompensation overnight 01/06, no CO2 retention but sedate, CXR wtih acute changes consider infection, blood cx, Cefepime and Doxycycline for HAP, conditional code CT angiography of chest negative for pulmonary embolism does show interstitial lung disease, venous Doppler bilateral lower extremity negative, negative respiratory BioFire panel Will discuss holding usual dosing of mycophenolate and 250 mg p.o. twice daily. # Acute Kidney injury with CKD3, concering cannot use diuretic to impove ventilation # Hyponatremia, will check osm, fluid restrict, consider iv sodium # Chest pain felt not to be cardiac, elevated troponin/hypertension/orthostatic hypotension- Multimodal pain control including Lidoderm patch and parenteral opiates with scheduled Tylenol Troponin 39.035.4 suspect to be demand ischemia Most recent echocardiogram 12/01/2023 with ejection fraction 60-65% Continue aspirin, metoprolol succinate #Chronic medical conditions: Hypothyroidism-continue levothyroxine Neuropathy-continue gabapentin GERD-continue omeprazole/pantoprazole and famotidine BPH with LUTS-continue tamsulosin and finasteride Anxiety/insomnia-continue alprazolam Admission and Anticipated Discharge Date Admission Date: January 05, 2025 Subjective Patient seen and evaluated at bedside. He had an eventful night and was found somnolent and not responsive to nursing care. A code purple was called. Patient is fatigued but awake and makes sense unclear whether this is a prolonged effect from intravenous opiate therapy or an oral opiate therapy or some other issue. Had a VBG without significant CO2 retention. Patient was noted to have decreased urine output throughout the day and was given a small fluid bolus. Chest x-ray is difficult to interpret in the baseline of interstitial lung disease was instituted on antibiotics with blood cultures obtained. Physical Exam Physical Exam: Patient is markedly abnormal lung exam which is less his baseline however he has no more pleuritic pain to his left chest wall. Card exam is regular Results & Data Results & Data Vital Signs (Past 12 Hours) Vital Signs Temp Pulse Pulse Resp BP Pulse Ox O2 Del Method 01/06/25 06:28 107 H 18 96 Oxymask 01/06/25 06:20 103 H 25 H 96 Oxymask 01/06/25 02:55 97.7 F 96 H 20 100/57 L 92 Nasal Cannula 01/05/25 23:05 97.7 F 76 18 117/74 95 Nasal Cannula 01/05/25 23:03 88 01/05/25 20:39 Nasal Cannula 01/05/25 19:34 97.7 F 74 18 95/62 L 93 Nasal Cannula O2 Flow Rate 01/06/25 06:28 5 01/06/25 06:20 5 01/06/25 02:55 01/05/25 23:05 01/05/25 23:03 01/05/25 20:39 2 01/05/25 19:34 2 Laboratory Results review cbc marked leukocytosis review chemistry YSABEL, hyponatremia PG Care Time/CCT Total # of Minutes Spent Total Time Spent with Patient: Total time spent is greater than 50% in coordination of care (as documented) at patient's floor/unit and/or counseling patient: Coding Level of Care Code 01249 SUB INP/OBS CARE 3/50MIN Diagnoses Interstitial lung disease J84.9 Chest pain R07.9 Elevated d-dimer R79.89 Elevated troponin R79.89 Hypoxemia R09.02
[2025-01-06] MEDS: methylPREDNISolone 40 MG in SYRINGE 0 ML IV SCH (07:28)
--- NOTE | 2025-01-06 08:09 | XRay Report ---
EXAM: XR chest 1V portable CLINICAL HISTORY: Chest pain. TECHNIQUE: An X-ray image of the chest is obtained in AP projection. COMPARISON: 01/05/2025. FINDINGS: Pulmonary Parenchyma: Patchy airspace shadowing right upper zone. Homogeneous opacification of the left lower zone causes the blunting of costophrenic recess. Heart and Mediastinum: Cardiac shadow is enlarged in size. No mediastinal widening or masses. No hilar or mediastinal lymphadenopathy. Bony Thorax: Bony thorax appears intact without fractures or deformities. Soft Tissues: Soft tissues overlying the chest wall are unremarkable. IMPRESSION: 1. Patchy airspace shadowing right upper zone. Postinflammatory. 2. Homogeneous opacification of the left lower zone causing the blunting of costophrenic recess suggestive of mild to moderate pleural effusion. 3. Cardiomegaly with bilateral hilar congestion. Comparing the previous x-ray dated 01/01/2025 the findings remain stable. Electronically signed by Shayy Agarwal 01-06-2025 08:08 AM
[2025-01-06] MEDS: DOXYCYCLINE HYCLATE 100 MG in DEXTROSE 5% MINI-B 100 ML IV SCH (08:36)
[2025-01-06] MEDS: LIDOCAINE 5% 1 PATCH TD SCH (08:36)
[2025-01-06] MEDS: CEFEPIME 2000MG 2,000 MG/20 ML SYR IV ONE (08:36)
--- NOTE | 2025-01-06 08:51 | Pulmonology Progress Note ---
Date of Service January 06, 2025 Assessment & Plan (1) Nocturnal hypoxia: (2) Pulmonary hypertension: (3) Interstitial lung disease: Plan CTA chest 01/05/2025 personally reviewed: Interlobular thickening as well as traction bronchiectasis and honeycombing appreciated bilaterally More evident on the right upper as well as right lower lobe Cardiomegaly with evidence of pulmonary hypertension No significant mediastinal lymphadenopathy -- Interstitial lung disease Patient follows with Dr. Mares as outpatient On mycophenolate along with prednisone 10 mg on a daily basis No clear signs of infiltrate on the CT chest 01/05/2025, not significantly changed compared to HRCT 12/10/2024 Respiratory bio fire negative for everything on 01/05/2025 -- Chronic hypoxic respiratory failure Uses 2-3 L oxygen [id number] Admission and Anticipated Discharge Date Admission Date: January 05, 2025 Supervising Physician Co-Signing Physician Notes I saw and evaluated the patient with Sg Urrutia PA-C, and agree with findings and plan as documented in the note. Patient seen and examined at bedside. No acute distress Overnight patient did get opioid medication for his pain He was little bit somnolent. But he easily aroused when I walked into the room. Patient's son was also in the room Systolic blood pressure was in the 90s with MAP still in the high 60s. He was saturating 94% on 3 L, I went down to 2 L Constitutional: No acute distress HEENT: EOMI, PERRLA Respiratory system: Decreased air entry bilaterally, no wheeze, rhonchi, positive Velcro-like crackles appreciated bilaterally CVS: S1-S2 positive, no murmurs or gallops Abdomen: Soft, nontender, nondistended, positive bowel sounds x4 Extremities: +2 pulses bilaterally radialis/ dorsalis pedis, no cyanosis, +2 pitting edema bilateral lower extremity, R>L Neuro: Somnolent but easily arousable and answering questions appropriately Psych: Normal mood and affect G/U: No Maier Plan: Chest x-ray from today which was done around 6:45 AM is a poor inspiratory effort and it should not be compared to the at the time of presentation CT chest 01/05/2025 does not show any signs of worsening of ILD or infection Retrosternal chest pain as well as the left-sided chest pain does not seem to be coming from the lungs. Cardiac etiology first followed by musculoskeletal etiology should be ruled out Unsure if the patient has an aspiration episode while he was very somnolent. Patient does have significant leukocytosis even though he is on mycophenolate. He did get steroids while he was in the ER which could be one of the reason Procalcitonin is trending up but again patient has YSABEL, unsure if it has any significance. Would still recommend empiric antibiotics, follow blood culture as well as sputum culture Repeat chest x-ray in the morning Case was discussed with primary team at bedside Please note the above document was generated using voice recognition software. It may contain grammatical, syntax or spelling errors.Any formal questions or concerns about the content, text or information contained within the body of this dictation should be directly addressed to the provider for clarification. Subjective Patient seen and evaluated at bedside. He had an eventful night and was found somnolent and not responsive to nursing care. A code purple was called. Patient remains somnolent today and pleasantly confused. Review of Systems 2 Review of Systems: Unable to contribute secondary to mental status. Physical Exam 2 Physical Exam: VITAL SIGNS Vital signs and nursing notes were reviewed. GENERAL 84-year-old male appearing his stated age who is in mild distress. Somnolent and confused. SKIN Thinning of skin and multiple kadie of ecchymosis. NOSE Midline and without cyanosis. MOUTH/OROPHARYNX Without perioral cyanosis. NECK Neck with FROM. LUNGS Chest wall evaluation demonstrates normal chest wall A:P diameter. Auscultation reveals diffuse wheezing. CARDIAC RRR with S1/S2. No murmur, rubs, or gallops appreciated. ABDOMEN Abdominal inspection demonstrates a protuberant abdomen. BS normoactive all four quadrants. Slight TTP. Skin: no rashes, warm and dry Lymphatic: no cervical or axillary lymphadenopathy Results & Data Results & Data Vital Signs (Past 12 Hours) Vital Signs Temp Pulse Pulse Resp BP Pulse Ox O2 Del Method 01/06/25 08:00 36.4 C L 108 H 26 H 81/55 L 94 Oxymask 01/06/25 06:28 107 H 18 96 Oxymask 01/06/25 06:20 103 H 25 H 96 Oxymask 01/06/25 02:55 36.5 C 96 H 20 100/57 L 92 Nasal Cannula 01/05/25 23:05 36.5 C 76 18 117/74 95 Nasal Cannula 01/05/25 23:03 88 O2 Flow Rate 01/06/25 08:00 5.0 01/06/25 06:28 5 01/06/25 06:20 5 01/06/25 02:55 01/05/25 23:05 01/05/25 23:03 Laboratory Results 01/06/25 05:42 01/06/25 05:42 PG Care Time/CCT Total # of Minutes Spent Total Time Spent with Patient: Total time spent is greater than 50% in coordination of care (as documented) at patient's floor/unit and/or counseling patient: Coding Level of Care Code 39505 SUB INP/OBS CARE 3/50MIN Diagnoses Nocturnal hypoxia G47.34 Pulmonary hypertension I27.20 Interstitial lung disease J84.9
--- NOTE | 2025-01-06 11:17 | XRay Report ---
XR chest 1V portable CLINICAL HISTORY: eval lung pnx COMPARISON STUDY: 01/06/2025 FINDINGS: Stable cardiomegaly without pulmonary vascular congestion. Stable dense opacity at the left base with obscuration of left hemidiaphragm and blunting of the left costophrenic angle consistent w ith consolidation and possible left pleural effusion. Stable reticular and faint patchy opacity at th e right upper lung. No pneumothorax. IMPRESSION: Stable exam. ACT 112: Negative or not required by law. Electronically signed by: Brennon Lemos M.D. 01/06/2025 11:16 AM
[2025-01-06 13:15] LABS: Calcium 8.5 mg/dl (8.6-10.3); Potassium 5.5 mmol/L (3.5-5.1)
[2025-01-06 13:23] LABS: BUN Creatinine Ratio 16.9 (10-20); Creatinine Clr Calc Pharmacy 17.9 ml/min
[2025-01-06] MEDS: SODIUM CHLORIDE 0.9% 1,000 ML IV SCH (13:44)
--- NOTE | 2025-01-06 16:02 | Electrocardiogram Report ---
Test Reason : Blood Pressure : */* mmHG Vent. Rate : 101 BPM Atrial Rate : 101 BPM P-R Int : 142 ms QRS Dur : 138 ms QT Int : 360 ms P-R-T Axes : 19 -75 28 degrees QTcB Int : 466 ms Sinus tachycardia Right bundle branch block Left anterior fascicular block Bifascicular block Abnormal ECG When compared with ECG of 05-Jan-2025 04:52, Nonspecific T wave abnormality has replaced inverted T waves in Inferior leads Confirmed by Jeronimo Moise ([id number]) on 01/06/2025 4:02:42 PM Referred By: REFERRED SELF Confirmed By: Jeronimo Moise
[2025-01-06] MEDS: ONDANSETRON INJ 2 MG/ML 2 ML VIAL IV PRN (18:09)
[2025-01-06 19:40] VITALS: BP 107/74; PULSE 90; RESP 18; TEMP 97.7; O2SAT 93
[2025-01-06] MEDS: CEFEPIME 1000MG 1,000 MG/10 ML SYR IV SCH (20:31)
[2025-01-06] MEDS: GABAPENTIN 300 MG CAP PO SCH (20:35)
[2025-01-06] MEDS: SODIUM CHLORIDE 1 GM TABLET PO SCH (20:50)
[2025-01-06] MEDS: MoRPHine SULFATE 2 MG/ML CARP ONE (21:50)
--- NOTE | 2025-01-06 22:00 | Procedure Note ---
Procedure Note Date of Service January 06, 2025 Responded to CODE BLUE called overhead. PEA arrest. Per primary team, patient is conditional code (DNI in case of cardiac arrest). Chest compressions started and epinephrine given per protocol. Patient with large bout of emesis and obvious aspiration. Family was contacted and ACLS ceased at 2151. Time of 2151. CC time 15 minutes. [facility] [place] ([place]arges) Resuscitation Resuscitation: 37826 Heart/lung resuscitation CPR Coding CPT Codes Resuscitation - Resuscitation: 60149 Heart/lung resuscitation CPR ([id number]) Additional Codes Date of Service (PG.SURGERY)
--- NOTE | 2025-01-06 22:09 | Death Pronouncement Note ---
Date of Service January 06, 2025 Pronouncement Note Admission Date January 05, 2025 Date and Time of Date of : 01/06/25 Time of : 21:52 Summary Code blue activated for PEA arrest. Pt was conditional code - no intubation in the event of cardiac arrest. Pt with obvious vomiting and likely aspiration. ACLS initiated per protocol. Family contacted and after discussion of futility ACLS ceased at 2151. Time of 2151. Additional Data Confirmation of : no pulse, no respirations, no heart sounds and pupils fixed and dilated Pronouncement Performed By: Advanced Practice Provider (KEVIN) (Keri Krishnan) Family: contacted Attending/PCP notified?: Yes Attending physician: Chon Keith MD Was code activated?: Yes Resident Activity Tracking Resident Involvement: Resident Care Provided Care Provided: Adult Hospital Medicine
--- NOTE | 2025-01-07 07:03 | Discharge Summary ---
Discharge Summary Date of Service January 06, 2025 Pt after a PEA Arrest at 2152 hours from complications of interstitial lung disease Principal Dx & Hospital Course #1 = Principal Diagnosis (1) Interstitial lung disease: (2) Chest pain: (3) Elevated d-dimer: (4) Elevated troponin: (5) Hypoxemia: Plan The patient was a 84-year-old male with past medical history including interstitial lung disease oxygen dependent 3 L nasal cannula, CKD 3, orthostatic hypotension, cardiomyopathy, anxiety, GERD, hypothyroidism, diabetes mellitus type 2, hyperlipidemia, history of accelerated idioventricular rhythm, pulm hypertension, PVCs, Schatzki's ring, aortic stenosis, occipital neuralgia, and cervicalgia.patient presented with chest pain at rest which is pleuritic and reproducible, he was recently on a 5-day prednisone tapering course. Patient was noted to have an elevated D-dimer of 1320 at the time of admission, with CTA chest PE without evidence of pulmonary embolism or rib fracture. Respiratory BioFire testing pending at the time of admission. PT had a declining course with lethargy and worsening pulmonary status despite attempts at antibioitcs and steroids, discussions for conditional code, and pt eventually developed PEA and at 2153 hours the clinical information below describes his previous hospital stay #Acute on Chronic respiratory failure with hypoxia/interstitial lung disease/pulmonary hypertension- decompensation overnight 01/06, no CO2 retention but sedate, CXR wtih acute changes consider infection, blood cx, Cefepime and Doxycycline for HAP, conditional code CT angiography of chest negative for pulmonary embolism does show interstitial lung disease, venous Doppler bilateral lower extremity negative, negative respiratory BioFire panel # Acute Kidney injury with CKD3, concerning cannot use diuretic to improve ventilation # Hyponatremia # Chest pain felt not to be cardiac, elevated troponin/hypertension/orthostatic hypotension- Multimodal pain control including Lidoderm patch and parenteral opiates with scheduled Tylenol Troponin 39.035.4 suspect to be demand ischemia Most recent echocardiogram 12/01/2023 with ejection fraction 60-65% aspirin, metoprolol succinate #Chronic medical conditions: Hypothyroidism Neuropathy- GERD- BPH with LUTS- Anxiety/insomnia- Admission HPI Per Admitting Provider The patient is a 84-year-old male with past medical history including interstitial lung disease, nocturnal hypoxia, exertional hypoxia requiring 3 L nasal cannula, history of YSABEL superimposed on CKD, elevated troponin, orthostatic hypotension, cardiomyopathy, anxiety, GERD, hypothyroidism, diabetes mellitus type 2, hyperlipidemia, history of accelerated idioventricular rhythm, pulm hypertension, PVCs, Schatzki's ring, aortic stenosis, occipital neuralgia, and cervicalgia.The patient presents to the emergency department with concern regarding left parasternal chest pain that he reports woke him up from sleep earlier this evening. He reports that the pain does seem to run along underneath one of his ribs on the left side, but does occasionally extend to the left side of his back as well. He denies any recent travels, sick exposures, he does have issues with occasionally significant paroxysmal cough associated with underlying interstitial lung disease, for which she follows with Dr. Mares from pulmonology. He was recently on a 5-day prednisone tapering course, and is back to his baseline prednisone dosing at this time. He has chronic dyspnea on exertion, forts he does use 3 L nasal cannula oxygen as needed. He reports no recent change in this requirement Discharge Exam pt pronounced by coering steam pressure chamber operator 01/06/25 at 2152 Discharge Plan Discharge Items Patient Disposition: Other Date/Time: 01/06/25 21:52 Hospital Stay Data Consultations 01/05/25 06:43 Consult Pulmonology Routine 01/05/25 06:51 ED Decision to Admit Stat Diagnostic Imagining Performed 01/05/25 06:08 CT angio chest PE protocol Stat 01/05/25 06:25 US venous doppler LE BI Stat Total Time Total Time Spent Total Time Spent (In Minutes): greater than 30 minutes were required to render care for this pt Coding Level of Care Code 97582 INP/OBS DISCH >30 MIN Diagnoses Interstitial lung disease J84.9 Chest pain R07.9 Elevated d-dimer R79.89 Elevated troponin R79.89 Hypoxemia R09.02
[2025-01-07] MEDS ORDERED: predniSONE 10 MG TABLET PO SCH (09:00)
== END 2025-01-06 23:25 | disposition expired | DRG 196 ==
LOC: ED 04:47 → EDINP 06:25 → SUATTDRO 06:25 → 2E 06:48